=== PATIENT | female | born 1965 | race Caucasian/White ===

== ENCOUNTER → 2020-01-11 11:14 | Outpatient (BNVA) | payer OTHER, SELFPAY | PROVIDERS: PCP Internal Medicine; Visit Provider Physician Assistant Medical | DX: M25.511 Pain in right shoulder (principal) | CPT/HCPCS: 73030; 99202 ==

== ENCOUNTER → 2020-01-18 09:26 | Outpatient (BNVA) | payer OTHER, SELFPAY | PROVIDERS: PCP Internal Medicine; Visit Provider Physician Assistant | DX: Z13.89 Encounter for screening for other disorder (principal) | CPT/HCPCS: 99213 ==

== ENCOUNTER → 2020-01-25 15:03 | Outpatient (BNVA) | payer OTHER, SELFPAY | PROVIDERS: PCP Internal Medicine; Visit Provider Internal Medicine | DX: M54.2 Cervicalgia (principal) | CPT/HCPCS: 99213 ==

== ENCOUNTER → 2020-02-08 13:09 | Outpatient (BNVA) | payer OTHER, SELFPAY | PROVIDERS: Visit Provider Orthopaedic Surgery | DX: S46.001A Unspecified injury of muscle(s) and tendon(s) of the rotator cuff of right shoulder, initial encounter (principal) | CPT/HCPCS: 99202 ==

== ENCOUNTER → 2020-02-14 11:00 | Outpatient (BNVA) | payer OTHER, SELFPAY | PROVIDERS: Visit Provider Internal Medicine | DX: Z13.89 Encounter for screening for other disorder (principal) | CPT/HCPCS: 99213 ==

== ENCOUNTER → 2020-03-08 13:58 | Outpatient (BNVA) | payer OTHER, SELFPAY | PROVIDERS: Visit Provider Internal Medicine | DX: M79.601 Pain in right arm (principal) | CPT/HCPCS: 99213 ==

== ENCOUNTER 2020-03-13 11:50 | Outpatient (REF) | payer OTHER, SELFPAY ==
[2020-03-13 12:19] LABS: COVID-19 Test Negative (Negative)
== END 2020-03-13 11:51 | disposition home or self-care (01) ==
LOC: HO.EMPCOV 11:50
PROVIDERS: Visit Provider Internal Medicine
DX: Z20.822 Contact with and (suspected) exposure to COVID-19 (principal)
CPT/HCPCS: 36415; 87635; C9803

== ENCOUNTER → 2020-03-14 08:43 | Outpatient (BNVA) | payer OTHER, BC, SELFPAY | PROVIDERS: Visit Provider Orthopaedic Surgery | DX: S46.001D Unspecified injury of muscle(s) and tendon(s) of the rotator cuff of right shoulder, subsequent encounter (principal) | CPT/HCPCS: 20610; 99212; J1040 ==

== ENCOUNTER 2020-03-23 11:00 | Outpatient (RCR) | payer OTHER, BC, SELFPAY ==
--- NOTE | 2020-01-24 16:45 | MHC.PT.EP ---
[facility] [place] [facility] [place] Office [place] Office [address] [phone] F: [phone] F: [phone] F: [phone] F: [phone] Physical Therapy Plan of Care Date of Evaluation: 01/24/20 Date of Surgery: NA Diagnosis: PECTORALIS STRAIN Assessment: PILO PRESENTS WITH S/S CONSISTENT WITH PECTORALIS MAJOR STRAIN AND SUPRASPINATUS IMPINGEMENT. IMPAIRMENTS INCLUDE DECREASED ROM. DECREASED STRENGTH, INCREASED TISSUE TENSION AND PAIN, ALTERED POSTURE AND POSITIONING. FUNCTIONAL LIMITATIONS INCLUDE DECREASED TOLERANCE TO LIFTING, PUSHING AND PULLING AND REACHING. SHE REPORTS DECREASED TOLERANCE TO HOMEMAKING AND WORK TASKS, DISRUPTED SLEEP AND DECREASED PARTICIPATION IN RECREATIONAL ACTIVITIES. SHE IS A GOOD CANDIDATE FOR SKILLED PT TO ADDRESS IMPAIRMENTS AND RETURN TO PLOF. Frequency and Duration: The patient will be seen 2 X WEEK FOR 5 WEEKS Short Term Goals: INITIATE HEP AND EDUC IN SELF MANAGEMENT OF SYMPTOMS IN 2 WEEKS Utility Hand Goals: FULL, PAIN FREE GH ROM IN 5 WEEKS FULL, PAIN FREE STRENGTH OF TRUNK AND UE MUSCULATURE IN 5 WEEKS TO RETURN TO WORK FT/FD WITHOUT PAIN GREATER THAN 2/10 IN 5 WEEKS Treatment Plan: Modalities to reduce pain, spasms and effusion. Manual therapy to restore motion and function. Therapeutic exercise to improve strength and flexibility. Neuromuscular re-education for posture and balance. Therapeutic activities to return to functional activities of daily living. Please sign and return to therapist. Thank you for your referral.
--- NOTE | 2020-08-28 08:32 | MHC.PT.DC ---
[facility] [place] Office [place] Office [place] Office [address] Pick[address] [phone] F: [phone] F: [phone] F: [phone] F: [phone] Physical Therapy Discharge Report Diagnosis: PECTORALIS STRAIN Date of Surgery: NA Date of Evaluation: 01/24/20 Date of Discharge: Treatments to Date: 16 Cancellations to Date: 0 No Shows to Date: 0 Discharge Status: Discharge Summary: Rose Marie had been progressing in PT but was placed on hold to undergo MRI and MD follow up. She has not contacted us to continue therapy and is DCed at this time. Electronically signed by: MARTIN MAGANA PT, DPT Please sign and return to therapist. Thank you for your referral.
== END 2020-08-28 08:32 | disposition other institution (70) ==
LOC: HO.PT 11:00
PROVIDERS: PCP Internal Medicine; Visit Provider Internal Medicine
DX: S29.011D Strain of muscle and tendon of front wall of thorax, subsequent encounter (principal)
CPT/HCPCS: 97033; 97110; 97140; 97161; 97530; 97535

== ENCOUNTER 2020-03-29 16:36 | Emergency (ER) | payer BC, SELFPAY ==
--- NOTE | 2020-03-29 16:56 | PC.NURSE ---
This RN to assess pt in WR. Pt states sx resolved at this time. H/O of same issues with ocular migraine and sx resolved after taking meclizine and ibuprofen today. Pt with intact neuros, clear speech. Spoke to PCP who prefers pt to come to ED for evaluation.
[2020-03-29 17:47] VITALS: BP 127/64; PULSE 73; RESP 16; TEMP 36.6; O2SAT 99
--- NOTE | 2020-03-29 18:10 | ED.HA ---
HPI - Headache General Chief Complaint: Eye Problems Stated Complaint: blurry vision Time Seen by Provider: 03/29/20 18:10 Source: patient Mode of arrival: ambulatory Limitations: no limitations History of Present Illness HPI Narrative: patient was driving in when she had aura with visual changes. patient feels off, never developed a true headache. Patient has a history of migraine in the past. She gets visual migraines a couple times of the month. patient states that she could not focus and had triple vision MD elicited complaint: headache Onset (ago): hour(s) Onset description: gradually Severity: moderate Exacerbating factors: movement of head/neck Associated symptoms: nausea and lightheadedness Related Data Home Medications Medication Instructions Recorded Confirmed cyclobenzaprine 5 mg tablet 5 mg PO BEDTIME 02/08/20 levothyroxine 137 mcg tablet 137 mcg PO DAILY 02/08/20 loratadine 5 mg chewable tablet 5 mg PO BID 02/08/20 meclizine 12.5 mg tablet 12.5 mg PO DAILY 02/08/20 morphine 15 mg immediate release 15 mg PO BID PRN 02/08/20 tablet pantoprazole 40 mg tablet,delayed 40 mg PO DAILY 02/08/20 release sertraline 100 mg tablet 100 mg PO DAILY 02/08/20 trazodone 50 mg tablet 50 mg PO BEDTIME PRN 02/08/20 valacyclovir 1 gram tablet 1,000 mg PO DAILY 02/08/20 Allergies Allergy/AdvReac Type Severity Reaction Status Date / Time oxycodone [From PERCOCET] Allergy Intermediate HIVES Verified 02/08/20 13:15 Sulfa (Sulfonamide Allergy Intermediate HIVES Verified 02/08/20 13:15 Antibiotics) [SULFA (SULFONAMIDE ANTIBIOTICS)] diatrizoate meglumine Allergy Unknown red rash Verified 02/08/20 13:15 [Gastrografin] Review of Systems Constitutional: Constitutional: Reports no additional constitutional complaints Eyes: Eyes: Reports no additional eye complaints ENT: Denies dizziness Cardiovascular: Cardiovascular: Reports no additional cardiovascular complaints Respiratory: Respiratory: Reports as per HPI Gastrointestinal: Gastrointestinal: Reports no additional gastrointestinal complaints Genitourinary: Genitourinary: Reports no additional female genitourinary complaints Musculoskeletal: Musculoskeletal: Reports no additional musculoskeletal complaints Integumentary/Breasts: Skin/Breast: Denies rash Neurologic: Reports system reviewed and no additional complaints, except as documented, Denies dizziness and Denies Sensory deficit (Neuro) Psychiatric: Psychiatric: Denies anxiety [facility] Past Medical History Medical History Herpes Hodgkins lymphoma Shingles Surgical History Delivery by section Gastric banding status H/O ankle fusion History of cholecystectomy Family History Family History (Updated 02/08/20 @ 13:21 by Vivien Molina [facility]) Mother Colon cancer Father Hypertension Prostate cancer Son Diabetes Daughter Autism Social History Social History Advance Directives: No Advance Directives Information Provided: Yes 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: employed 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 Vital Signs: Vital Signs: Last Vital Signs Temp 98.1 F 03/29/20 18:22 Pulse 83 03/29/20 18:22 Resp 17 03/29/20 18:22 BP 176/74 H 03/29/20 18:22 Pulse Ox 100 03/29/20 18:22 Body Mass Index 39.3 Const: General: healthy appearing Nutritional Appearance: average body habitus Orientation/consciousness: oriented to person and patient oriented x3 Limitations: no limitations HENMT: Head: Yes normal to inspection Ears: external ears normal General nose exam: Normal external nose present Mouth: Normal oral and palatal mucosa present and oropharynx normal Throat: Yes posterior oropharynx normal Eyes: General: appearance normal, both eyes and all related structures Neck: Other: supple Neck: Yes normal visual inspection Chest: Chest palpation & inspection: normal inspection of the chest Resp: Auscultation: clear to auscultation bilaterally Cardio: Jugular venous distension: no JVD Rate: regular rate Rhythm: regular rhythm Heart sounds: S1 normal heart sound present and S2 normal heart sound present GI: Inspection: Yes normal to inspection Palpation (GI): Soft to palpation, nontender and No hepatosplenomegaly present Auscultation: normal bowel sounds : General: Yes no CVA tenderness Back/Spine/Pelvis: Back: no CVA tenderness Skin: General skin exam: no rashes or lesions noted Neuro: General: oriented to person and patient oriented x3 Cranial nerves: Yes CN's II-XII intact bilaterally Motor exam (neuro): 5/5 motor strength present throughout Sensory Exam: No Sensory deficit (Neuro) Extrem: General: Yes normal to inspection Psych: Appearance: grossly normal Course Course Course Narrative: migraine improved head CT negative will dc home MDM - Headache Differential Diagnosis Differential diagnosis: Likely migraine, tension headache and headache Discharge Plan Discharge Clinical Impression: Migraine Qualifiers: Migraine type: with aura Status migrainosus presence: without status migrainosus Intractability: not intractable Qualified Code(s): G43.109 - Migraine with aura, not intractable, without status migrainosus Patient Disposition: Home, Self-Care Instructions: Migraine Headache (ED) Referrals: Huong Johnson MD [Primary Care Provider] - 2 days
[2020-03-29 18:22] VITALS: BP 176/74; PULSE 83; RESP 17; TEMP 36.7; O2SAT 100; BMI 39.3
--- NOTE | 2020-03-29 18:25 | CT_ITS ---
EXAMINATION: CT HEAD WITHOUT CONTRAST CLINICAL INFORMATION: Headache, double vision COMPARISON: None TECHNIQUE: Contiguous axial imaging was performed from the skull base to vertex without intravenous administration of contrast. This CT examination was performed using dose optimization techniques as appropriate, variously including the following: *Automated exposure control *Adjustment of mA and/or kV according to patient size (this includes techniques or standardized protocols for targeted exams where dose is matched to indication/reason for exam; i.e. extremities or head) *Use of iterative reconstruction technique DLP: 635 mGy-cm FINDINGS: There is no evidence of acute intracranial hemorrhage or territorial infarction. No abnormal mass effect or midline shift is seen. Hitchcock to white matter differentiation is well preserved. No extra-axial fluid collections are identified. The ventricles are normal in size. There is no abnormal attenuation within the brain parenchyma. The osseous structures and soft tissues are normal. The mastoid air cells and visualized portions of the paranasal sinuses are well aerated. Some dystrophic calcification anterior right frontal region. A calcified meningioma cannot be excluded CT/CT head/brain wo con IMPRESSION: No acute intracranial pathology.
== END 2020-03-29 19:25 | disposition home or self-care (01) ==
PROVIDERS: Emergency Provider Emergency Medicine; PCP Internal Medicine
DX: G43.109 Migraine with aura, not intractable, without status migrainosus (principal); Z79.899 Other long term (current) drug therapy
CPT/HCPCS: 70450; 99283; 99284

== ENCOUNTER → 2020-04-05 12:55 | Outpatient (BNVA) | payer OTHER, SELFPAY | PROVIDERS: PCP Internal Medicine; Visit Provider Internal Medicine | DX: M79.621 Pain in right upper arm (principal) | CPT/HCPCS: 99213 ==

== ENCOUNTER 2020-04-13 16:30 | Outpatient (REF) | payer OTHER, SELFPAY ==
--- NOTE | ~2020-04-13 | MR_ITS ---
EXAMINATION: MR SHOULDER WITHOUT CONTRAST, RIGHT CLINICAL INFORMATION: Right shoulder pain over biceps. COMPARISON: Radiograph dated 01/11/2020. TECHNIQUE: MRI of the shoulder without contrast was performed on a high-field scanner. FINDINGS: ROTATOR CUFF: Intact. No muscle atrophy or fatty infiltration. BICEPS: Normal. CORACOACROMIAL ARCH: The undersurface of the acromion is minimally curved with no subacromial spur. There is mild acromioclavicular osteoarthritis with mild distal clavicular osteolysis . No subacromial-subdeltoid bursitis. LABRUM/CAPSULE: There is focal abnormal increased signal intensity at the superior labrum which extends into the labral tissue (/18 of series 6) and to the articular cortex at the supraglenoid tubercle. Underlying subchondral cystic changes noted in this region. This is likely due to a small focal labral tear with surrounding fraying. Labrum otherwise appears intact. Joint capsule is normal. GLENOHUMERAL JOINT/MARROW: There is subtle cortical irregularity and subcortical cystic change along the posterior humeral head. No fracture or malalignment. As noted above, a small focus of subcortical cystic change is present at the supraglenoid tubercle. A trace amount of joint fluid in the the superior subscapularis recess is within normal limits. No loose bodies are identified. MR/MR shoulder RT wo con IMPRESSION: 1. Abnormal signal at the undersurface of the superior labrum with adjacent chondral fissuring and subcortical cystic change at the supraglenoid tubercle, most consistent with a type I SLAP injury. A very small type II SLAP tear is less likely. 2. Otherwise normal biceps tendon. 3. 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
== END 2020-04-13 16:31 | disposition home or self-care (01) ==
LOC: HO.MRI 16:30
PROVIDERS: Visit Provider Internal Medicine
DX: M25.511 Pain in right shoulder (principal)
CPT/HCPCS: 73221

== ENCOUNTER 2020-04-17 13:22 | Outpatient (REF) | payer BC, SELFPAY ==
--- NOTE | ~2020-04-17 | MM_ITS ---
EXAMINATION: MM SCREENING DIGITAL BREAST TOMOSYNTHESIS, BILATERAL CLINICAL INFORMATION: Screening. Asymptomatic. The lifetime risk of breast cancer based on the Tyrer-Cuzick Model is 13%. COMPARISON: Mammography: 12/22/2018, 12/09/2017, 11/14/2016, outside exam 05/01/2015 ([facility]). TECHNIQUE: Digital breast tomosynthesis is performed in both the craniocaudal and mediolateral oblique views along with computer-aided detection (CAD). Synthesized 2D images are generated from the tomosynthesis. Additional right MLO view is provided. FINDINGS: There are scattered areas of fibroglandular density (ACR BI-RADS breast composition Category b). The left breast is unremarkable. There is no mass or architectural abnormality. Neither breast shows abnormal calcifications. The bilateral axilla and skin contours are unremarkable. The right breast has a 0.6 x 0.5 mm nodule anterior upper outer quadrant within 4 cm from the nipple. Finding is more conspicuous when compared with prior studies. Margins are incompletely visualized. Patient will be recalled for additional imaging. MM/MM tomosynthesis screening BI IMPRESSION: 1. Right: Small nodule anterior upper outer quadrant with incompletely visualized margins, more conspicuous when compared with prior studies. 2. Left: No mammographic evidence of malignancy. ASSESSMENT: BI-RADS 0: Incomplete - Need Additional Imaging Evaluation RECOMMENDATION: 1. Additional views of the right breast for margins (3D spot CC, 3D spot ML). 2. Targeted ultrasound right breast. 3. Radiology department staff will contact the patient for additional imaging. This patient's information was entered into a reminder system with a target due date for their next mammogram.
== END 2020-04-17 13:23 | disposition home or self-care (01) ==
LOC: HO.MAMMO 13:22
PROVIDERS: Visit Provider Internal Medicine
DX: Z12.31 Encounter for screening mammogram for malignant neoplasm of breast (principal)
CPT/HCPCS: 77063; 77067

== ENCOUNTER 2020-04-19 11:34 | Outpatient (REF) | payer BC, SELFPAY ==
--- NOTE | ~2020-04-19 | MM_ITS ---
EXAMINATION: MM DIAGNOSTIC DIGITAL BREAST TOMOSYNTHESIS, RIGHT US BREAST, RIGHT CLINICAL INFORMATION: Nodule upper outer quadrant approximately 4 cm from nipple. COMPARISON: Mammography: Same day as well as studies dating back to 05/01/2013 TECHNIQUE: Digital breast tomosynthesis is performed. 2-D images are generated from the tomosynthesis. The following views are obtained: Spot compression craniocaudal and 90 degree mediolateral views. Targeted right breast ultrasound. FINDINGS: There are scattered areas of fibroglandular density (ACR BI-RADS breast composition Category b). There is persistence of a circumscribed approximately 6 mm density lying approximately 4 cm from nipple, at the 12 o'clock position. No associated microcalcifications are identified. No definite spiculation is seen. Targeted ultrasound evaluation of the right breast superiorly demonstrated a complex cystic structure measuring approximately 5 x 5 x 3 mm in size at the 12 o'clock position approximately 4 cm from nipple. No internal vascularity is present. The lesion is wider than it is tall. There is increased through sound transmission. Results are discussed with the patient at time of visit. MM/MM tomosynthesis added views R IMPRESSION: Density about the superior aspect of the right breast corresponds to a complex cyst on ultrasound. Six-month followup ultrasound study suggested. ASSESSMENT: BI-RADS 3: Probably Benign. RECOMMENDATION: Diagnostic ultrasound in 6 months. This patient's information was entered into a reminder system with a target due date for their next mammogram.
== END 2020-04-19 11:35 | disposition home or self-care (01) ==
LOC: HO.MAMMO 11:34
PROVIDERS: Visit Provider Obstetrics & Gynecology Gynecology
DX: R92.2 Inconclusive mammogram (principal)
CPT/HCPCS: 76642; 77061; 77065

== ENCOUNTER → 2020-04-25 09:36 | Outpatient (BNVA) | payer BC, SELFPAY | PROVIDERS: Visit Provider Orthopaedic Surgery | DX: S43.499A Other sprain of unspecified shoulder joint, initial encounter (principal); S46.819A Strain of other muscles, fascia and tendons at shoulder and upper arm level, unspecified arm, initial encounter | CPT/HCPCS: 20610; J1040 ==

== ENCOUNTER → 2020-04-26 13:12 | Outpatient (BNVA) | payer OTHER, SELFPAY | PROVIDERS: Visit Provider Internal Medicine | DX: M79.621 Pain in right upper arm (principal) | CPT/HCPCS: 99213 ==

== ENCOUNTER → 2020-05-10 11:31 | Outpatient (BNVA) | payer OTHER, SELFPAY | PROVIDERS: Visit Provider Internal Medicine | DX: Z13.89 Encounter for screening for other disorder (principal) | CPT/HCPCS: 99213 ==

== ENCOUNTER → 2020-06-14 11:34 | Outpatient (BNVA) | payer OTHER, SELFPAY | PROVIDERS: Visit Provider Internal Medicine | DX: Z13.89 Encounter for screening for other disorder (principal) | CPT/HCPCS: 99213 ==

== ENCOUNTER → 2020-07-16 12:48 | Outpatient (BNVA) | payer OTHER, SELFPAY | PROVIDERS: Visit Provider Internal Medicine | DX: Z13.89 Encounter for screening for other disorder (principal) | CPT/HCPCS: 99213 ==

== ENCOUNTER → 2020-08-17 11:22 | Outpatient (BNVA) | payer OTHER, SELFPAY | PROVIDERS: Visit Provider Internal Medicine | DX: Z13.89 Encounter for screening for other disorder (principal) | CPT/HCPCS: 99213 ==

== ENCOUNTER → 2020-09-07 11:31 | Outpatient (BNVA) | payer OTHER, SELFPAY | PROVIDERS: Visit Provider Internal Medicine | DX: Z02.79 Encounter for issue of other medical certificate (principal) | CPT/HCPCS: 99213 ==

== ENCOUNTER 2020-09-19 16:30 | Outpatient (REF) | payer BC, SELFPAY ==
--- NOTE | ~2020-09-19 | XR_ITS ---
EXAMINATION: XR CHEST CLINICAL INFORMATION: Shortness of breath h/o pleural effusion s/p pleurodesis. COMPARISON: 10/25/2018 TECHNIQUE: 2 views of the chest were obtained. FINDINGS: Heart and pulmonary vessels appear normal. Left hemidiaphragm is mildly elevated. Surgical clips noted in left upper quadrant. No infiltrates effusions or lung masses are seen. XR/XR chest 2V IMPRESSION: No acute intrathoracic disease.
== END 2020-09-19 16:31 | disposition home or self-care (01) ==
LOC: HO.XRAY 16:30
PROVIDERS: PCP Internal Medicine; Visit Provider Internal Medicine
DX: R07.9 Chest pain, unspecified (principal); R05 Cough
CPT/HCPCS: 71046

== ENCOUNTER 2020-10-18 12:56 | Outpatient (REF) | payer BC, SELFPAY ==
--- NOTE | ~2020-10-18 | US_ITS ---
EXAMINATION: US DIAGNOSTIC ULTRASOUND BREAST, RIGHT CLINICAL INFORMATION: Six-month follow-up right breast, dated cyst. COMPARISON: April 19, 2020 and December 22, 2018. TECHNIQUE: Ultrasound of the breast is performed with real-time major scale imaging and color Doppler. FINDINGS: At the 12:00 position approximately 4 cm from the nipple of the right breast there is again noted to be a complicated cyst with increased through sound transmission and smooth circumscribed wall. Lesion is wider than it is tall. No internal vascularity is present. It measures approximately 6 x 4 x 5 mm in size. Recommend 6 month follow-up mammography. Results are discussed with the patient at time of visit. US/US breast RT limited IMPRESSION: Essentially stable complicated cyst right breast 12:00 position 4 cm from the nipple. ASSESSMENT: BI-RADS 3: Probably Benign RECOMMENDATION: Diagnostic mammography in 6 months. This patient's information was entered into a reminder system with a target due date for their next mammogram.
== END 2020-10-18 12:57 | disposition home or self-care (01) ==
LOC: HO.MAMMO 12:56
PROVIDERS: Visit Provider Obstetrics & Gynecology Gynecology
DX: N60.01 Solitary cyst of right breast (principal)
CPT/HCPCS: 76642

== ENCOUNTER 2020-11-19 14:25 | Outpatient (REF) | payer BC, SELFPAY ==
[2020-11-19 15:53] LABS: MANUAL DIFF FLAG NO
[2020-11-19 16:01] LABS: Basophils Absolute Auto 0.1 X10*3/uL (0.0-0.2); Basophils Percent Auto 0.5 % (0-2); Eosinophils Absolute Auto 0.3 X10*3/uL (0.0-0.4); Eosinophils Percent Auto 2.6 % (0-4); Hematocrit 39.7 % (37-47); Hemoglobin 13.2 g/dl (12.0-16.0); Imm Gran Abs Auto 0.04 X10*3/uL (0.00-0.03); Imm Gran Pct Auto 0.4 % (0.0-0.4); Lymphocytes Absolute Auto 2.7 X10*3/uL (1.2-4.9); Lymphocytes Percent Auto 24.5 % (20-40); Mean Corpuscular HGB Conc 33.2 g/dl (31.0-35.0); Mean Corpuscular Hemoglobin 31.5 pg (27.0-33.0); Mean Corpuscular Volume 94.7 fL (80-98); Mean Platelet Volume 11.4 fL (9.4-12.3); Monocytes Absolute Auto 1.1 X10*3/uL (0.1-1.2); Neutrophils Absolute Auto 6.9 X10*3/uL (2.0-8.3); Platelet Count 314 X10*3/uL (160-400); Red Blood Count 4.19 X10*6/uL (4.20-5.50); Red Cell Distribution Width 13.9 % (11.0-16.0); White Blood Count 11.2 X10*3/uL (4.8-10.8)
[2020-11-19 16:05] LABS: INTERNATIONAL NORM RATIO 0.9 (0.9-1.1); Prothrombin Time 10.6 SEC (9.9-13.0)
[2020-11-19 16:13] LABS: Alanine Aminotransferase 21 U/L (0-31); Albumin Level 4.3 g/dL (3.5-5.0); Alkaline Phosphatase 205 U/L (39-117); Anion Gap 13 (12-20); Aspartate Amino Transferase 20 U/L (5-31); Bilirubin Total 0.9 mg/dL (0.0-1.0); Blood Urea Nitrogen 14 mg/dL (9-16); C Reactive Protein 0.39 mg/dL (< or = 0.50); Calcium 9.7 mg/dL (8.4-10.2); Carbon Dioxide 27 mmol/L (22-29); Chloride 107 mmol/L (96-108); Estimated Glomerular Filt Rate 57; Glucose Random 106 mg/dL (60-115); Iron 90 mcg/dL (30-160); Percent Iron Saturation 23 % (15-50); Potassium 4.7 mmol/L (3.3-5.1); Sodium 142 mmol/L (135-145); Total Iron Binding Capacity 387 mcg/dL (228-428); Total Protein 6.9 g/dL (6.5-8.0); Unsaturated Iron Binding 297 ug/dL
[2020-11-19 16:45] LABS: Vitamin D 25-OH Total 30.6 ng/mL (>30)
[2020-11-19 16:47] LABS: Ferritin 57 ng/mL (10-250); Folate 5.3 ng/mL (> or = 4.0); Vitamin B12 355 pg/mL (200-900)
[2020-11-19 17:49] LABS: Erythrocyte Sedimentation Rate 10 MM/HR (0-20)
[2020-11-20 09:08] LABS: HBS Num1 9.97 mIU/mL (0-7.99); HBc Num1 0.05 S/CO (0.00-0.79); HBsAGNum1 0.21 S/CO (0.00-0.99); Hepatitis B Core Antibody Nonreactive (Nonreactive); Hepatitis B Surface Antigen Negative (Negative); ~HepC Num1 0.07 S/CO (0.00-0.79); ~Hepatitis C Antibody Nonreactive (Nonreactive)
[2020-11-20 11:29] LABS: HBS Num3 8.21 mIU/mL (0-7.99)
[2020-11-20 11:30] LABS: ~Hepatitis B Surface Antibody GRAYZONE (Nonreactive)
[2020-11-20 11:37] LABS: Alpha 1 Anti-trypsin 141 mg/dL (83-199); Ceruloplasmin 34 mg/dL (18-53)
[2020-11-20 12:22] LABS: Anti Nuclear Antibody Screen NEGATIVE (NEGATIVE)
[2020-11-20 21:26] LABS: Immunoglobulin G Subclass 1 271 mg/dL (382-929); Immunoglobulin G Subclass 2 294 mg/dL (241-700); Immunoglobulin G Subclass 3 47 mg/dL (22-178); Immunoglobulin G Subclass 4 8.5 mg/dL (4-86); Immunoglobulin G Total 697 mg/dL (600-1640); Transglutaminase Ab IgG 1 U/mL; Transglutaminase IgA 1 U/mL
[2020-11-22 06:21] LABS: Zinc 67 mcg/dL (60-130)
[2020-11-23 08:10] LABS: Hepatitis A Antibody IgM 0.19 Index (0-0.79); ~Hepatitis A Antibody IgM Nonreactive (Nonreactive)
[2020-11-23 22:16] LABS: Histamine Plasma <1.5 ng/mL (< OR = 1.8)
[2020-11-25 16:16] LABS: Smooth Muscle Antibody <20 U (<20)
[2020-11-27 10:31] LABS: Soluble Liver Ag Autoantibody <20.1 U (0.0-20.0)
== END 2020-11-19 14:26 | disposition home or self-care (01) ==
LOC: HO.LAB 14:25
PROVIDERS: PCP Internal Medicine; Visit Provider Internal Medicine Gastroenterology
DX: R94.5 Abnormal results of liver function studies (principal); K52.839 Microscopic colitis, unspecified; G89.29 Other chronic pain; R10.33 Periumbilical pain; R79.82 Elevated C-reactive protein (CRP); K75.81 Nonalcoholic steatohepatitis (NASH)
CPT/HCPCS: 36415; 80053; 82085; 82103; 82306; 82390; 82550; 82607; 82728; 82746; 82784; 83088; 83516; 83520; 83540; 84630; 85025; 85610; 85652; 86038; 86039; 86140; 86255; 86256; 86704; 86706; 86709; 86803; 87340

== ENCOUNTER 2020-11-27 11:53 | Outpatient (REF) | payer BC, SELFPAY ==
[2020-12-04 11:51] LABS: Parietal Cell Antibody <=20.0 Unit (<=20.0)
[2020-12-06 15:37] LABS: Intrinsic Factor Antibodies Negative (Negative)
== END 2020-11-27 11:54 | disposition home or self-care (01) ==
LOC: HO.LAB 11:53
PROVIDERS: PCP Internal Medicine; Visit Provider Internal Medicine Gastroenterology
DX: E53.8 Deficiency of other specified B group vitamins (principal); R94.5 Abnormal results of liver function studies
CPT/HCPCS: 36415; 83516; 83520; 86340

== ENCOUNTER 2021-01-14 14:28 | Outpatient (REF) | payer BC, SELFPAY ==
[2021-01-14 15:31] LABS: Alanine Aminotransferase 25 U/L (0-31); Albumin Level 4.3 g/dL (3.5-5.0); Alkaline Phosphatase 175 U/L (39-117); Anion Gap 13 (12-20); Aspartate Amino Transferase 30 U/L (5-31); Bilirubin Total 0.8 mg/dL (0.0-1.0); Blood Urea Nitrogen 11 mg/dL (9-16); Calcium 9.6 mg/dL (8.4-10.2); Carbon Dioxide 23 mmol/L (22-29); Chloride 109 mmol/L (96-108); Estimated Glomerular Filt Rate > 60; Glucose Random 120 mg/dL (60-115); Potassium 4.3 mmol/L (3.3-5.1); Sodium 141 mmol/L (135-145); Total Protein 6.8 g/dL (6.5-8.0)
[2021-01-14 19:19] LABS: Gamma Glutamyl Transpeptidase 206 U/L (7-33)
[2021-01-18 12:36] LABS: Alk.Phos Iso. Macrohepatic 20 % (<=0); Alk.Phos Isoenzymes Bone 23 % (28-66); Alk.Phos Isoenzymes Intest 0 % (1-24); Alk.Phos Isoenzymes Liver 57 % (25-69); Alk.Phos Isoenzymes Placental 0 % (<=0); Alk.Phos Isoenzymes Total 165 U/L (37-153)
== END 2021-01-14 14:29 | disposition home or self-care (01) ==
LOC: HO.LAB 14:28
PROVIDERS: PCP Internal Medicine; Visit Provider Internal Medicine Gastroenterology
DX: R94.5 Abnormal results of liver function studies (principal)
CPT/HCPCS: 36415; 80053; 82977; 84080

== ENCOUNTER → 2021-03-25 11:23 | Outpatient (BNVA) | payer BC, SELFPAY | PROVIDERS: PCP Internal Medicine; Visit Provider Internal Medicine Gastroenterology ==

== ENCOUNTER 2021-04-23 09:52 | Outpatient (REF) | payer OTHER, SELFPAY ==
--- NOTE | ~2021-04-23 | MM_ITS ---
EXAMINATION: MM DIAGNOSTIC DIGITAL BREAST TOMOSYNTHESIS, BILATERAL US DIAGNOSTIC ULTRASOUND BREAST, LEFT CLINICAL INFORMATION: Due for yearly. Also follow-up mildly complicated cyst anterior 11:00-12:00 right breast. The lifetime risk of breast cancer based on the Tyrer-Cuzick Model is 13%. COMPARISON: Mammography: 04/19/2020, 04/17/2020 (BI-RADS 0), 12/22/2018, 12/09/2017, 11/14/2016; targeted right breast ultrasound 04/19/2020, 10/18/2020. TECHNIQUE: Digital breast tomosynthesis is performed in both the craniocaudal and mediolateral oblique views along with computer-aided detection (CAD). Synthesized 2D images are generated from the tomosynthesis. Additional spot left ML view is obtained. Ultrasound left breast is targeted to the upper outer quadrant mid depth. Grayscale imaging and color Doppler are performed without and with harmonics. FINDINGS: There are scattered areas of fibroglandular density (ACR BI-RADS breast composition Category b). The small complicated cyst anterior right breast for follow-up is resolved. The right breast shows no interval mass or architectural abnormality. Neither breast shows abnormal calcifications. The bilateral axilla and skin contours are unremarkable. Left breast has new 0.6 cm oval nodule mid upper breast with smaller adjacent satellite nodule, suspected fibrocystic change. The remainder the left breast is unremarkable. Ultrasound targeted to the left upper outer breast confirms incidental cyst 0.5 cm, 1:00 position mid depth corresponding to finding on mammography. Cyst is anechoic with circumscribed margins and increased through-transmission of sound. There is a tiny adjacent satellite cyst in the area measuring 0.3 cm corresponding to the mammogram. There is no color flow. No solid mass or architectural abnormality. Results are discussed with the patient at time of visit. MM/MM tomosynthesis diagnostic BI IMPRESSION: Right: -No mammographic evidence of malignancy. -Resolution small cyst anterior upper right breast since prior exam. Left: -No mammographic evidence of malignancy. -2 small incidental cysts upper left breast. ASSESSMENT: BI-RADS 2: Benign RECOMMENDATION: Routine annual mammography screening. This patient's information was entered into a reminder system with a target due date for their next mammogram.
== END 2021-04-23 09:53 | disposition home or self-care (01) ==
LOC: HO.MAMMO 09:52
PROVIDERS: PCP Obstetrics & Gynecology Gynecology; Visit Provider Obstetrics & Gynecology Gynecology
DX: N63.25 Unspecified lump in the left breast, overlapping quadrants (principal)
CPT/HCPCS: 76642; 77062; 77066

== ENCOUNTER 2021-07-30 07:55 | Day surgery (SDC) | payer OTHER, SELFPAY ==
[2021-07-25 08:32] VITALS: BMI 40.6
--- NOTE | 2021-07-29 10:53 | P.CONAN_ITS ---
Documented by User: Kayla Amaya NP 07/29/21 10:53 HPI - Anesthesia Eval Consult details Narrative: 55yo F for Colonoscopy PMFSH Active Problems Active Problems: All Active Problems (Updated 07/25/21 @ 08:29 by Ceci Rivera RN) Sprain and strain of other specified sites of shoulder and upper arm (Acute) Injury of right rotator cuff (Acute) Abnormal LFTs (Acute) Low vitamin B12 level (Acute) Past Medical History Medical History (Updated 07/30/21 @ 08:58 by Maria G Farfan RN) Anxiety and depression Asthma GERD (gastroesophageal reflux disease) Hepatic steatosis Herpes Hodgkins lymphoma Hx of irritable bowel syndrome Hypothyroid Shingles Family History Family History Mother Colon cancer Father Hypertension Prostate cancer Son Diabetes Daughter Autism Surgical History Surgical History Delivery by section Gastric banding status H/O ankle fusion History of cholecystectomy History of esophagogastroduodenoscopy (EGD) History of sleeve gastrectomy Hx of colonoscopy Social History Social History Patient Tobacco Use Status: Never used Tobacco Use of substances other than those prescribed or required for medical reasons: Yes Substance Use Frequency: Occasionally Are you DNR?: No Advance Directives: No Advance Directives Information Provided: Yes 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 Allergies Allergy/AdvReac Type Severity Reaction Status Date / Time oxycodone [From PERCOCET] Allergy Intermediate HIVES Verified 07/30/21 08:30 Sulfa (Sulfonamide Allergy Intermediate HIVES Verified 07/30/21 08:30 Antibiotics) [SULFA (SULFONAMIDE ANTIBIOTICS)] diatrizoate meglumine Allergy Unknown red rash Verified 07/30/21 08:30 [Gastrografin] Home Medications Medication Instructions Recorded Confirmed Last Taken Type cyclobenzaprine 5 mg tablet 5 mg PO BEDTIME 02/08/20 07/30/21 Unknown History loratadine 5 mg chewable tablet 5 mg PO BID 02/08/20 07/30/21 Unknown History (Children's Claritin) meclizine 12.5 mg tablet 12.5 mg PO DAILY 02/08/20 07/30/21 Unknown History morphine 15 mg immediate release 15 mg PO BID PRN 02/08/20 07/30/21 Unknown History tablet pantoprazole 40 mg tablet,delayed 40 mg PO DAILY 02/08/20 07/30/21 Unknown History release sertraline 100 mg tablet 100 mg PO DAILY 02/08/20 07/30/21 Unknown History trazodone 50 mg tablet 50 mg PO BEDTIME PRN 02/08/20 07/30/21 Unknown History levothyroxine 137 mcg tablet 137 mcg PO DAILY 07/30/21 07/30/21 Unknown History (Synthroid) Exam Exam Date and Time: July 29, 2021 1053 Height,Weight and Vital Signs: Height 5 ft 2 in Weight 100.698 kg Assessment and Plan Assessment Anesthesia Assessment: Chart Reviewed Documented by User: Oneil Carrillo MD 07/30/21 09:29 [facility] Past Medical History Medical History (Updated 07/30/21 @ 08:58 by Maria G Farfan RN) Anxiety and depression Asthma GERD (gastroesophageal reflux disease) Hepatic steatosis Herpes Hodgkins lymphoma Hx of irritable bowel syndrome Hypothyroid Shingles Family History Family History Mother Colon cancer Father Hypertension Prostate cancer Son Diabetes Daughter Autism Family history of problems with anesthesia: No Surgical History Surgical History Delivery by section Gastric banding status H/O ankle fusion History of cholecystectomy History of esophagogastroduodenoscopy (EGD) History of sleeve gastrectomy Hx of colonoscopy History of Problems with Anesthesia: No Social History Social History Patient Tobacco Use Status: Never used Tobacco Use of substances other than those prescribed or required for medical reasons: Yes Substance Use Frequency: Occasionally Are you DNR?: No Advance Directives: No Advance Directives Information Provided: Yes 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 Allergies Allergy/AdvReac Type Severity Reaction Status Date / Time oxycodone [From PERCOCET] Allergy Intermediate HIVES Verified 07/30/21 08:30 Sulfa (Sulfonamide Allergy Intermediate HIVES Verified 07/30/21 08:30 Antibiotics) [SULFA (SULFONAMIDE ANTIBIOTICS)] diatrizoate meglumine Allergy Unknown red rash Verified 07/30/21 08:30 [Gastrografin] Home Medications Medication Instructions Recorded Confirmed Last Taken Type cyclobenzaprine 5 mg tablet 5 mg PO BEDTIME 02/08/20 07/30/21 Unknown History loratadine 5 mg chewable tablet 5 mg PO BID 02/08/20 07/30/21 Unknown History (Children's Claritin) meclizine 12.5 mg tablet 12.5 mg PO DAILY 02/08/20 07/30/21 Unknown History morphine 15 mg immediate release 15 mg PO BID PRN 02/08/20 07/30/21 Unknown History tablet pantoprazole 40 mg tablet,delayed 40 mg PO DAILY 02/08/20 07/30/21 Unknown History release sertraline 100 mg tablet 100 mg PO DAILY 02/08/20 07/30/21 Unknown History trazodone 50 mg tablet 50 mg PO BEDTIME PRN 02/08/20 07/30/21 Unknown History levothyroxine 137 mcg tablet 137 mcg PO DAILY 07/30/21 07/30/21 Unknown History (Synthroid) Exam Airway Mallampati Class: I TM Dist: >3cm Neck ROM: Full Loose/Missing/Broken Teeth: Yes Assessment and Plan Assessment Anesthesia Assessment: Anesthesia Plan Discussed Final Anesthetic Review Family History of Problems with Anesthesia: No History of Problems with Anesthesia: No NPO: Yes ASA Class: III Final Preanesthetic Review: No Changes in Pt Med Stat, Meds/Allgs Chart Reviewed, Consent Obtained/Reviewed and Anes Risks/Benef Reviewed Patient Risk: Intermediate Procedure Risk: Low Anesthetic Plan Anesthetic Plan: MAC: Disposition: Standard PACU
[2021-07-30 08:42] VITALS: BP 160/66; PULSE 69; RESP 16; TEMP 36.2; O2SAT 99
[2021-07-30] MEDS: Lactated Ringers 1,000 ML 100 ML IVCONT (08:55)
--- NOTE | 2021-07-30 09:07 | MHC.SHP ---
Pre-Procedural Eval Section A Date of Service: 07/30/21 Section B Chief Complaint: Screening, Details of Present Illness: mother with colon cancer Relevant Family History (Specify if Yes): Yes Relevant Social History: None Present Medications: see Short Stay Collaborative assessment Medical History: Significant History (Anxiety and depression GERD (gastroesophageal reflux disease) Hepatic steatosis Herpes Hodgkins lymphoma Hypothyroid Shingles) History of Previous Operations: Relevant previous surgery/procedure and date(s) (Delivery by section Gastric banding status H/O ankle fusion History of cholecystectomy History of esophagogastroduodenoscopy (EGD) History of sleeve gastrectomy Hx of colonoscopy) Allergies: Allergies Allergy/AdvReac Type Severity Reaction Status Date / Time oxycodone [From PERCOCET] Allergy Intermediate HIVES Verified 07/30/21 08:30 Sulfa (Sulfonamide Allergy Intermediate HIVES Verified 07/30/21 08:30 Antibiotics) [SULFA (SULFONAMIDE ANTIBIOTICS)] diatrizoate meglumine Allergy Unknown red rash Verified 07/30/21 08:30 [Gastrografin] Review of Systems Sugical H&P ROS: Negative: Constitution, Cardiovascular, Respiratory, Neurological, Psychiatric, Hem-Onc, Allergic/Immunologic, Gastrointestinal, Genitourinary, Musculoskeletal, Integumentary, Endocrine and Eyes/Ears/Nose/Throat Exam Surgical H&P Exam: Normal: HEENT, Normal: Heart, Normal: Lungs, Normal: Extremities, Normal: Abdomen, Normal: Skin and Normal: Neurological Plan Diagnosis/Plan: Unchanged I have reviewed the history and physical and performed a pertinent physical examination on my patient. No changes have occurred unless specified.
--- NOTE | 2021-07-30 09:11 | P.OP_ITS ---
Operative Note Operative Note Date of Service: 07/30/21 Narrative: Operative Information Procedure Description: Colonoscopy Indication: Fh of CRC and personal hx of polyps Anesthesia: MAC COLONOSCOPY Instrument: Olympus variable stiffness pediatric scope 190L Colonoscopy Monitoring: Vital signs and clinical assessment, continuous EKG monitoring, Pulse oximetry, Carbon Dioxide monitoring and blood pressure monitoring were done throughout the procedure. Colon withdrawal time was 19 minutes. Procedure: The patient was placed in the left lateral decubitis position and pre-procedure medications were administered. After a digital rectal examination of the ano-rectum, the video colonoscope was inserted into the rectum and advanced through the colon to the cecum/TI. The colonoscope was slowly withdrawn in a retrograde panoramic fashion and the colon mucosa was carefully examined including a retroflexed view of the rectum. Findings and interventions are described below. Procedure Difficulty: easy Findings: Terminal Ileum- mild erythema, bx taken Right sided retroflexion--nml Cecum:normal, bx taken Ascending Colon: normal, bx taken Transverse Colon -normal Descending Colon: 6-7 mm sessile polyp removed with cold forceps Sigmoid Colon: 8-10 mm semi pedunculated polyp like leison with surrounding edema, removed with cold snare Rectum: Retroflexion with small internal hemorrhoids, grade I Anorectum - normal Colon preparation: [place] Bowel Preparation Scale Right colon; 2 Transverse colon: 2 Left colon; 2 (0 = Unprepared colon segment with mucosa not seen due to solid stool that cannot be cleared. 1 = Portion of mucosa of the colon segment seen, but other areas of the colon segment not well seen due to staining, residual stool and/or opaque liquid. 2 = Minor amount of residual staining, small fragments of stool and/or opaque liquid, but mucosa of colon segment seen well. 3 = Entire mucosa of colon segment seen well with no residual staining, small fragments of stool or opaque liquid) Impression and Post Procedure Diagnosis: polyps internal hemorrhoids mild ileitis Plan: High fiber diet leaflet Avoid straining at stool, epsom salts and sitz bath, anusol supps or cream Repeat Colonoscopy in 5 years due to FH of CRC or earlier if clinically indicated if any GI sx then CT or Mr enterogram to r/o crohns, await Bx first Above findings were reviewed with the patient and relevant handouts were provided if indicated.
--- NOTE | 2021-07-30 09:11 | PM.OP ---
Brief Operative Note Date of Service: 07/30/21 Pre-op diagnosis: Fh of CRC and polyps Post-op diagnosis: same Procedure: see op note Surgeon: Robbie Chowdhury MD Anesthesia: MAC Was an Rotary Machine Operator used for this Procedure?: No Estimated blood loss (mL): 0 Condition: stable Disposition: PACU
[2021-07-30 09:59] VITALS: BP 100/45; PULSE 56; RESP 16; TEMP 36.5; O2SAT 96
[2021-07-30 10:14] VITALS: BP 145/72; PULSE 68; RESP 16; TEMP 36.8; O2SAT 100
== END 2021-07-30 11:32 | disposition home or self-care (01) ==
PROVIDERS: PCP Obstetrics & Gynecology Gynecology; Visit Provider Internal Medicine Gastroenterology
PROC: 0DJD8ZZ Inspection of Lower Intestinal Tract, Via Natural or Artificial Opening Endoscopic (ICD-10-PCS; CPT 45378; principal; 2021-07-30 09:20)
DX: Z12.11 Encounter for screening for malignant neoplasm of colon (principal); Z80.0 Family history of malignant neoplasm of digestive organs; Z86.010 Personal history of colon polyps; K59.00 Constipation, unspecified; D12.4 Benign neoplasm of descending colon; K63.5 Polyp of colon; K52.89 Other specified noninfective gastroenteritis and colitis; K64.0 First degree hemorrhoids; K21.9 Gastro-esophageal reflux disease without esophagitis; K76.0 Fatty (change of) liver, not elsewhere classified; C81.90 Hodgkin lymphoma, unspecified, unspecified site; E03.9 Hypothyroidism, unspecified; Z98.84 Bariatric surgery status; Z90.49 Acquired absence of other specified parts of digestive tract; Z79.899 Other long term (current) drug therapy; Z88.2 Allergy status to sulfonamides; Z88.8 Allergy status to other drugs, medicaments and biological substances
CPT/HCPCS: 45385; 45380; 88305

== ENCOUNTER 2021-08-28 19:00 | Outpatient (REF) | payer OTHER, SELFPAY ==
[2021-09-04 21:01] LABS: Lactoferrin, Fecal, Quant. <30.0 mcg/mL
== END 2021-08-28 19:01 | disposition home or self-care (01) ==
LOC: HO.LNP 19:00
PROVIDERS: Visit Provider Internal Medicine Gastroenterology
DX: K52.9 Noninfective gastroenteritis and colitis, unspecified (principal)
CPT/HCPCS: 83631

== ENCOUNTER 2021-09-23 09:40 | Outpatient (REF) | payer OTHER, SELFPAY ==
--- NOTE | ~2021-09-23 | MR_ITS ---
EXAMINATION: MR ABDOMEN AND PELVIS WITHOUT AND WITH CONTRAST CLINICAL INFORMATION: Noninfective gastroenteritis and colitis COMPARISON: CT abdomen pelvis 05/11/2018 TECHNIQUE: MRI of the abdomen and pelvis before and after the IV administration of 10 mL of Gadavist was obtained using routine sequences. FINDINGS: LUNG BASES: Trace bilateral pleural effusions. KIDNEYS: Unremarkable. GALLBLADDER: Surgically absent. LIVER AND BILIARY TREE: The liver is normal in signal and morphology. No suspicious liver lesion. No intra or extrahepatic biliary duct dilatation. PANCREAS: Unremarkable SPLEEN: Unremarkable ADRENAL GLANDS: Unremarkable GASTROINTESTINAL TRACT: Stomach is under distended limiting assessment for wall thickening and hyperenhancement. Susceptibility artifact along the greater curvature of the stomach compatible with history of prior gastric sleeve. Duodenal diverticulum. Single loop of featureless small bowel in the left abdomen, 21:24 which demonstrates transmural hyperenhancement. No significant colonic wall thickening or hyperenhancement. No perianal inflammatory changes. No abscess. No dilation of bowel to suggest stricture. Colon is fluid-filled which could be seen in the setting of a diarrheal state. Normal appendix. LYMPH NODES: No lymphadenopathy. VASCULAR: Unremarkable ABDOMINAL WALL: Unremarkable. REPRODUCTIVE ORGANS: Intrauterine device in place. BLADDER: Unremarkable PELVIC FREE FLUID: No free fluid or ascites. OSSEOUS STRUCTURES: Unremarkable. MR/MR abdomen wo/w con IMPRESSION: Single loop of featureless small bowel in the left abdomen which demonstrates transmural hyperenhancement, which can be seen in the setting of infectious or inflammatory enteritis. Colon is fluid-filled which could be seen in the setting of a diarrheal state.
--- NOTE | ~2021-09-23 | MR_ITS ---
EXAMINATION: MR ABDOMEN AND PELVIS WITHOUT AND WITH CONTRAST CLINICAL INFORMATION: Noninfective gastroenteritis and colitis COMPARISON: CT abdomen pelvis 05/11/2018 TECHNIQUE: MRI of the abdomen and pelvis before and after the IV administration of 10 mL of Gadavist was obtained using routine sequences. FINDINGS: LUNG BASES: Trace bilateral pleural effusions. KIDNEYS: Unremarkable. GALLBLADDER: Surgically absent. LIVER AND BILIARY TREE: The liver is normal in signal and morphology. No suspicious liver lesion. No intra or extrahepatic biliary duct dilatation. PANCREAS: Unremarkable SPLEEN: Unremarkable ADRENAL GLANDS: Unremarkable GASTROINTESTINAL TRACT: Stomach is under distended limiting assessment for wall thickening and hyperenhancement. Susceptibility artifact along the greater curvature of the stomach compatible with history of prior gastric sleeve. Duodenal diverticulum. Single loop of featureless small bowel in the left abdomen, 21:24 which demonstrates transmural hyperenhancement. No significant colonic wall thickening or hyperenhancement. No perianal inflammatory changes. No abscess. No dilation of bowel to suggest stricture. Colon is fluid-filled which could be seen in the setting of a diarrheal state. Normal appendix. LYMPH NODES: No lymphadenopathy. VASCULAR: Unremarkable ABDOMINAL WALL: Unremarkable. REPRODUCTIVE ORGANS: Intrauterine device in place. BLADDER: Unremarkable PELVIC FREE FLUID: No free fluid or ascites. OSSEOUS STRUCTURES: Unremarkable. MR/MR pelvis wo/w con IMPRESSION: Single loop of featureless small bowel in the left abdomen which demonstrates transmural hyperenhancement, which can be seen in the setting of infectious or inflammatory enteritis. Colon is fluid-filled which could be seen in the setting of a diarrheal state.
== END 2021-09-23 09:41 | disposition home or self-care (01) ==
LOC: HO.MRI 09:40
PROVIDERS: Visit Provider Internal Medicine Gastroenterology
DX: K52.9 Noninfective gastroenteritis and colitis, unspecified (principal)
CPT/HCPCS: 72197; 74183; A9585

== ENCOUNTER 2021-09-27 08:08 | Outpatient (REF) | payer OTHER, SELFPAY ==
--- NOTE | ~2021-09-27 | XR_ITS ---
EXAMINATION: XR FOOT, LEFT CLINICAL INFORMATION: Displaced fracture of fifth metatarsal bone COMPARISON: None TECHNIQUE: AP, lateral, and oblique views of the left foot. FINDINGS: There is no acute fracture, dislocation or subluxation. Moderate retrocalcaneal and a small to moderate size calcaneal enthesophytes are visualized. Alignment is anatomic. Joint spaces are maintained. There is mild dorsal distal foot soft tissue swelling. XR/XR foot LT min 3V IMPRESSION: No acute fracture or dislocation seen. Moderate retrocalcaneal and calcaneal heel enthesophytes.
== END 2021-09-27 08:09 | disposition home or self-care (01) ==
LOC: HO.HOSX 08:08
PROVIDERS: Visit Provider Physician Assistant
DX: S92.352A Displaced fracture of fifth metatarsal bone, left foot, initial encounter for closed fracture (principal)
CPT/HCPCS: 73630

== ENCOUNTER 2021-10-02 09:06 | Outpatient (REF) | payer OTHER, SELFPAY ==
[2021-10-02 09:24] LABS: MANUAL DIFF FLAG NO
[2021-10-02 10:41] LABS: Basophils Absolute Auto 0.1 X10*3/uL (0.0-0.2); Basophils Percent Auto 0.7 % (0-2); Eosinophils Absolute Auto 0.3 X10*3/uL (0.0-0.4); Eosinophils Percent Auto 4.4 % (0-4); Hematocrit 38.6 % (37.0-47.0); Hemoglobin 12.6 g/dl (12.0-16.0); Imm Gran Abs Auto 0.02 X10*3/uL (0.00-0.03); Imm Gran Pct Auto 0.3 % (0.0-0.4); Lymphocytes Absolute Auto 2.2 X10*3/uL (1.2-4.9); Lymphocytes Percent Auto 29.6 % (20-40); Mean Corpuscular HGB Conc 32.6 g/dl (31.0-35.0); Mean Corpuscular Volume 91.9 fL (80.0-98.0); Mean Platelet Volume 11.7 fL (9.4-12.3); Monocytes Absolute Auto 0.9 X10*3/uL (0.1-1.2); Platelet Count 281 X10*3/uL (160-400); Red Cell Distribution Width 13.3 % (11.0-16.0); White Blood Count 7.5 X10*3/uL (4.8-10.8)
[2021-10-02 11:08] LABS: Anion Gap 11 (12-20); Blood Urea Nitrogen 13 mg/dL (9-16); Carbon Dioxide 25 mmol/L (22-29); Chloride 107 mmol/L (96-108); Cholesterol 236 mg/dL; Estimated Glomerular Filt Rate > 60; Glucose Random 99 mg/dL (60-115); HDL Cholesterol 51 mg/dL; Iron 92 mcg/dL (30-160); LDL Cholesterol Calculated 164 mg/dl; Percent Iron Saturation 24 % (15-50); Potassium 4.2 mmol/L (3.3-5.1); Sodium 139 mmol/L (135-145); Total Iron Binding Capacity 379 mcg/dL (228-428); Triglycerides 106 mg/dL; Unsaturated Iron Binding 287 ug/dL
[2021-10-02 11:32] LABS: Ferritin 50 ng/mL (10-250); T4 Thyroxine 10.7 ug/dL (4.5-12.0); Thyroid Stimulating Hormone 0.12 uIU/mL (0.32-4.0); Vitamin D 25-OH Total 29.7 ng/mL (>30)
[2021-10-02 12:19] LABS: Vitamin B12 342 pg/mL (200-900)
[2021-10-04 03:37] LABS: Triiodothyronine T3 Total 96 ng/dL (76-181)
== END 2021-10-02 09:07 | disposition home or self-care (01) ==
LOC: HO.LAB 09:06
PROVIDERS: Absent Provider Internal Medicine; PCP Internal Medicine; Visit Provider Internal Medicine Gastroenterology
DX: E03.9 Hypothyroidism, unspecified (principal); I10 Essential (primary) hypertension; Z98.84 Bariatric surgery status
CPT/HCPCS: 36415; 80048; 80061; 82306; 82607; 82728; 83540; 84436; 84443; 84480; 85025

== ENCOUNTER 2021-12-02 10:46 | Outpatient (REF) | payer OTHER, SELFPAY ==
--- NOTE | 2021-12-23 09:52 | MHC.AU.AEV ---
Adult Audiological Evaluation Date of Visit: 12/02/21 Reason for Appointment: History of hearing loss. Patient has been followed by [facility]. She is a hearing aid user. Hearing Handicap Inventory Does a hearing problem cause you to feel embarrassed when meeting new people?: Sometimes Does a hearing problem cause you to feel frustrated when talking to members of your family?: Sometimes Do you have difficulty when someone speaks in a whisper?: Yes Do you feel handicapped by a hearing problem?: No Does a hearing problem cause you difficulty when visiting friends, relatives, or neighbors?: Sometimes Does a hearing problem cause you to attend orthodoxy service services less often than you would like?: No Does a hearing problem cause you to have arguments with family members?: No Does a hearing problem cause you difficulty when listening to TV or radio?: Yes Do you feel that any difficult with your hearing limits or hampers your personal or social life?: Sometimes Does a hearing problem cause you difficulty when in a restaurants with relatives or friends?: Yes HHIE SCORE: 20 Based on HHIE score, patient has: Mild to moderate perceived hearing handicap Ear History: Ear Deformity: None Reported Recent Ear Drainage: None Reported Recent Ear Pain: None Reported Family History of Hearing Loss?: Yes: Grandfather Recent Ear Infections: None Reported Ear Infections in Childhood: None Reported History of Ear Wax Buildup: None Reported Previous Ear Surgery: None Reported Bothersome Tinnitus/Ringing/Noises in Ears: None Reported Ear used on the phone: Left Ear Blocked/Full Sensation in Ear(s): Both Ears History of occupational noise exposure?: No History: No Medical History: Medical History: Hodgkin's Disease, Migraine, Thyroid Disease Otoscopy: Right Ear: Unremarkable Left Ear: Unremarkable Tympanometry: Tympanometry performed due to: To assess integrity of the middle ear system Right Ear: Normal Middle Ear System (Type A) Left Ear: Normal Middle Ear System (Type A) Hearing Evaluation: Transducer(s) Used: Insert Earphones Method: Conventional Audiometry Stimuli Used: Pure Tones Right Ear: Description of Hearing: Mild to moderate sensorineural hearing loss, with slight uprising configuration. SRT is 35 dBHL. Word discrimination at 70 dBHL is 96%. Left Ear: Description of Hearing: Mild to moderate sensorineural hearing loss, with slight uprising configuration. SRT is 35 dBHL. Word discrimination at 75 dBHL is 100%. Recommendations: Audiological re-evaluation in one year. Patient is interested in new hearing aids. See Hearing Aid Evaluation report for details. Diagnosis: Primary Diagnosis: H90.3 Bilateral Sensorineural Hearing Loss Signature: Provider: Umang Jones, MARCIO-A
--- NOTE | 2021-12-23 09:54 | MHC.AU.MED ---
Medical Clearance for Hearing Instrumentation Date: 12/23/21 Patient Name: Rose Marie Ross Date of : 1965 Primary Care Provider: Referring Provider: Huong Johnson MD We have seen your patient on 12/02/21 and have determined that they are a candidate for amplification (See accompanying report). Specifically, they would benefit from: Hearing aid use in both ears There is a statute that addresses Medical Evaluation Requirements prior to fitting a patient with a hearing aid. According to [place] statute 265 CMR:6.03(1), (a) General. Except as provided in 265 CMR 6.03(1)(b), a labor arbitrator hearing office shall not sell a hearing aid unless the prospective user has presented to the labor arbitrator hearing office a written statement signed by a licensed physician that states that the patient's hearing loss has been medically evaluated and the patient may be considered a candidate for a hearing aid. The medical evaluation must have taken place within the preceding six months. Please note: Due to the [place] Statute referenced above, we cannot accept a signature other than that of a licensed physician. CUSTOMER ORDERS CLERK and PA signatures cannot be accepted. I am in agreement with the above recommendation. There is no medical contraindication for hearing instrumentation. Physician Signature Date Physician Name (Printed)
== END 2021-12-02 10:47 | disposition home or self-care (01) ==
LOC: HO.SH 10:46
PROVIDERS: Visit Provider Internal Medicine
DX: Z01.118 Encounter for examination of ears and hearing with other abnormal findings (principal); H90.3 Sensorineural hearing loss, bilateral
CPT/HCPCS: 92557; 92567

== ENCOUNTER 2021-12-02 11:48 | Outpatient (REF) | payer SELFPAY | END 2021-12-02 11:49 | disposition home or self-care (01) | LOC: HO.HAP 11:48 | PROVIDERS: Visit Provider Internal Medicine | DX: Z46.1 Encounter for fitting and adjustment of hearing aid (principal) | CPT/HCPCS: 92591 ==

== ENCOUNTER → 2022-01-16 14:57 | Outpatient (BNVA) | payer OTHER, SELFPAY | PROVIDERS: PCP Internal Medicine; Visit Provider Internal Medicine | DX: Z13.89 Encounter for screening for other disorder (principal) | CPT/HCPCS: 73130; 99202 ==

== ENCOUNTER → 2022-01-22 12:39 | Day surgery (SDC) | payer OTHER, SELFPAY ==
--- NOTE | 2022-01-21 07:48 | HO.ANESPROP2 ---
Documented by User: Kayla Amaya NP 01/21/22 07:57 HPI - Anesthesia Eval Consult details Narrative: 56yo F for Upper Endoscopy Chronic opioid PMFSH Active Problems Active Problems: All Active Problems (Updated 01/16/22 @ 15:21 by Vikram Bradford MD) Crush accident (Acute) Tarsal tunnel syndrome, left lower limb (Acute) Ileitis (Acute) Sprain and strain of other specified sites of shoulder and upper arm (Acute) Injury of right rotator cuff (Acute) Abnormal LFTs (Acute) Low vitamin B12 level (Acute) Past Medical History Medical History (Updated 01/16/22 @ 15:21 by Vikram Bradford MD) Anxiety and depression Asthma GERD (gastroesophageal reflux disease) Hepatic steatosis Herpes Hodgkins lymphoma Hx of irritable bowel syndrome Hypothyroid Shingles Family History Family History Mother Colon cancer Father Hypertension Prostate cancer Son Diabetes Daughter Autism Family history of problems with anesthesia: No Surgical History Surgical History (Updated 09/27/21 @ 15:11 by Miley Bro Amanda) Delivery by section Gastric banding status H/O ankle fusion History of arthroscopy of right shoulder History of cholecystectomy History of esophagogastroduodenoscopy (EGD) History of sleeve gastrectomy Hx of colonoscopy History of Problems with Anesthesia: No Social History Social History Patient Tobacco Use Status: Never used Tobacco Advance Directives: No Advance Directives Information Provided: Yes 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 Allergies Allergy/AdvReac Type Severity Reaction Status Date / Time oxycodone [From PERCOCET] Allergy Intermediate HIVES Verified 09/27/21 15:10 Sulfa (Sulfonamide Allergy Intermediate HIVES Verified 09/27/21 15:10 Antibiotics) [SULFA (SULFONAMIDE ANTIBIOTICS)] diatrizoate meglumine Allergy Unknown red rash Verified 09/27/21 15:10 [Gastrografin] Home Medications Medication Instructions Recorded Confirmed Last Taken Type loratadine 5 mg chewable tablet 5 mg PO BID 02/08/20 07/30/21 Unknown History (Children's Claritin) meclizine 12.5 mg tablet 12.5 mg PO DAILY 02/08/20 07/30/21 Unknown History morphine 15 mg immediate release 15 mg PO BID PRN Pain 02/08/20 07/30/21 Unknown History tablet pantoprazole 40 mg tablet,delayed 40 mg PO DAILY 02/08/20 07/30/21 Unknown History release sertraline 100 mg tablet 100 mg PO DAILY 02/08/20 07/30/21 Unknown History trazodone 50 mg tablet 50 mg PO BEDTIME PRN Insomnia 02/08/20 07/30/21 Unknown History levothyroxine 137 mcg tablet 137 mcg PO DAILY 08/19/21 Unknown History (Levoxyl) lorazepam 0.5 mg tablet 0.5 mg PO BID PRN anxiety 08/19/21 Unknown History sertraline 25 mg tablet 25 mg PO DAILY 08/19/21 Unknown History terbinafine HCl 1 % topical cream appl topical 08/19/21 Unknown History Exam Exam Date and Time: January 21, 2022 0748 Pertinent Lab Results Pertinent Lab Results: Laboratory Tests 10/02/21 10/02/21 09:21 09:21 WBC 7.5 Hgb 12.6 Hct 38.6 Plt Count 281 Sodium 139 Potassium 4.2 Chloride 107 Carbon Dioxide 25 BUN 13 Creatinine 0.71 Assessment and Plan Assessment Anesthesia Assessment: Chart Reviewed Final Anesthetic Review Family History of Problems with Anesthesia: No History of Problems with Anesthesia: No Documented by User: Stephanie Estrada MD 01/22/22 13:41 [facility] Past Medical History Medical History (Updated 01/16/22 @ 15:21 by Vikram Bradford MD) Anxiety and depression Asthma GERD (gastroesophageal reflux disease) Hepatic steatosis Herpes Hodgkins lymphoma Hx of irritable bowel syndrome Hypothyroid Shingles Family History Family History Mother Colon cancer Father Hypertension Prostate cancer Son Diabetes Daughter Autism Surgical History Surgical History (Updated 09/27/21 @ 15:11 by THU Camejo) Delivery by section Gastric banding status H/O ankle fusion History of arthroscopy of right shoulder History of cholecystectomy History of esophagogastroduodenoscopy (EGD) History of sleeve gastrectomy Hx of colonoscopy Social History Social History Patient Tobacco Use Status: Never used Tobacco Advance Directives: No Advance Directives Information Provided: Yes 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 Allergies Allergy/AdvReac Type Severity Reaction Status Date / Time oxycodone [From PERCOCET] Allergy Intermediate HIVES Verified 09/27/21 15:10 Sulfa (Sulfonamide Allergy Intermediate HIVES Verified 09/27/21 15:10 Antibiotics) [SULFA (SULFONAMIDE ANTIBIOTICS)] diatrizoate meglumine Allergy Unknown red rash Verified 09/27/21 15:10 [Gastrografin] Home Medications Medication Instructions Recorded Confirmed Last Taken Type loratadine 5 mg chewable tablet 5 mg PO BID 02/08/20 07/30/21 Unknown History (Children's Claritin) meclizine 12.5 mg tablet 12.5 mg PO DAILY 02/08/20 07/30/21 Unknown History morphine 15 mg immediate release 15 mg PO BID PRN Pain 02/08/20 07/30/21 Unknown History tablet pantoprazole 40 mg tablet,delayed 40 mg PO DAILY 02/08/20 07/30/21 Unknown History release sertraline 100 mg tablet 100 mg PO DAILY 02/08/20 07/30/21 Unknown History trazodone 50 mg tablet 50 mg PO BEDTIME PRN Insomnia 02/08/20 07/30/21 Unknown History levothyroxine 137 mcg tablet 137 mcg PO DAILY 08/19/21 Unknown History (Levoxyl) lorazepam 0.5 mg tablet 0.5 mg PO BID PRN anxiety 08/19/21 Unknown History sertraline 25 mg tablet 25 mg PO DAILY 08/19/21 Unknown History terbinafine HCl 1 % topical cream appl topical 08/19/21 Unknown History Exam Airway Mallampati Class: II TM Dist: >3cm Neck ROM: Full Loose/Missing/Broken Teeth: No Heart: RRR Lungs: CTA Assessment and Plan Final Anesthetic Review ASA Class: II Final Preanesthetic Review: Meds/Allgs Chart Reviewed, Consent Obtained/Reviewed and Anes Risks/Benef Reviewed Patient Risk: Low Procedure Risk: Intermediate Anesthetic Plan Anesthetic Plan: MAC: Disposition: Standard PACU
--- NOTE | 2022-01-22 13:35 | MHC.SHP ---
Pre-Procedural Eval Section A Date of Service: 01/22/22 Section B Chief Complaint: abdominal pain Details of Present Illness: bloating Relevant Family History (Specify if Yes): No Relevant Social History: None Present Medications: see Short Stay Collaborative assessment Medical History: Significant History (Anxiety and depression Asthma GERD (gastroesophageal reflux disease) Hepatic steatosis Herpes Hodgkins lymphoma Hx of irritable bowel syndrome Hypothyroid Shingles) History of Previous Operations: Relevant previous surgery/procedure and date(s) (Delivery by section Gastric banding status H/O ankle fusion History of arthroscopy of right shoulder History of cholecystectomy History of esophagogastroduodenoscopy (EGD) History of sleeve gastrectomy Hx of colonoscopy) Allergies: Allergies Allergy/AdvReac Type Severity Reaction Status Date / Time oxycodone [From PERCOCET] Allergy Intermediate HIVES Verified 09/27/21 15:10 Sulfa (Sulfonamide Allergy Intermediate HIVES Verified 09/27/21 15:10 Antibiotics) [SULFA (SULFONAMIDE ANTIBIOTICS)] diatrizoate meglumine Allergy Unknown red rash Verified 09/27/21 15:10 [Gastrografin] Review of Systems Sugical H&P ROS: Negative: Constitution, Cardiovascular, Respiratory, Neurological, Psychiatric, Hem-Onc, Allergic/Immunologic, Gastrointestinal, Genitourinary, Musculoskeletal, Integumentary, Endocrine and Eyes/Ears/Nose/Throat Exam Surgical H&P Exam: Normal: HEENT, Normal: Heart, Normal: Lungs, Normal: Extremities, Normal: Abdomen, Normal: Skin and Normal: Neurological Plan Diagnosis/Plan: Unchanged I have reviewed the history and physical and performed a pertinent physical examination on my patient. No changes have occurred unless specified. EGD for blaoting and abdominal pain
[2022-01-22 13:41] VITALS: BMI 40.2
[2022-01-22] MEDS: Lactated Ringers 1,000 ML 100 ML IVCONT (14:03)
--- NOTE | 2022-01-22 14:17 | W.PM.OPN ---
Operative Note Operative Note Date of Service: 01/22/22 Narrative: Procedure Description: EGD Indication: bloating, abdominal pain Anesthesia: MAC FLEXIBLE TRANSORAL UPPER GASTROINTESTINAL ENDOSCOPY UPPER ENDOSCOPY Consent: Indications for the procedure and potential complications of bleeding, perforation, reaction to medications and missed diagnosis were discussed with the patient and informed consent was obtained. Instrument: Olympus GIF H 190 J mid size upper endoscope Monitoring: Vital signs and clinical assessment, continuous EKG monitoring, Pulse oximetry, Carbon Dioxide monitoring and blood pressure monitoring were done throughout the procedure. Procedure: The patient was placed in the left lateral decubitis position and pre-procedure medications were administered and a bite block was placed. The endoscope was inserted into the mouth and advanced under direct vision to the third part of duodenum. A careful inspection was made as the upper endoscope was withdrawn including a retroflexed examination of the proximal stomach; Findings and interventions are described below. Findings: Larynx:normal Esophagus: GE junction at 38 cm, diaphragm hiatus at 38 cm, partial schatzki ring, bx taken from GEJ and random esophagus Stomach: Patchy gastric erythema, altered anatomy with L shaped stomach with hx of sleeve gastrectomy. Biopsies were obtained. Grade 2 flap valve on retroflexed examination of the cardia. Duodenum: Normal bulb and descending duodenum, bx taken Intervention: Biopsies as noted above Impression/Findings: partial schatzki gastritis PLAN: await bx results check nsaid hx check ppi compliance small meals with fluids
[2022-01-22 14:38] VITALS: BP 107/44; PULSE 63; RESP 20; TEMP 36.1
[2022-01-22 14:53] VITALS: BP 125/63; PULSE 67; RESP 20
[2022-01-22 15:08] VITALS: BP 137/65; PULSE 63; RESP 20
[2022-01-22 15:23] VITALS: BP 145/76; PULSE 63; RESP 16; TEMP 37
[2022-01-22 16:15] VITALS: BP 133/56; PULSE 63; RESP 16; TEMP 37
== END | disposition home or self-care (01) ==
PROVIDERS: PCP Internal Medicine; Visit Provider Internal Medicine Gastroenterology
PROC: 0DJ08ZZ Inspection of Upper Intestinal Tract, Via Natural or Artificial Opening Endoscopic (ICD-10-PCS; CPT 43235; principal; 2022-01-22 13:50)
DX: K29.50 Unspecified chronic gastritis without bleeding (principal); K52.9 Noninfective gastroenteritis and colitis, unspecified; K31.7 Polyp of stomach and duodenum; K22.2 Esophageal obstruction; K44.9 Diaphragmatic hernia without obstruction or gangrene; Z98.84 Bariatric surgery status; K21.9 Gastro-esophageal reflux disease without esophagitis; J45.909 Unspecified asthma, uncomplicated; K76.0 Fatty (change of) liver, not elsewhere classified; F41.8 Other specified anxiety disorders; Z85.71 Personal history of Hodgkin lymphoma; E03.9 Hypothyroidism, unspecified; Z88.2 Allergy status to sulfonamides; Z88.8 Allergy status to other drugs, medicaments and biological substances; Z90.49 Acquired absence of other specified parts of digestive tract
CPT/HCPCS: 43251; 43239; 88305; 88342

== ENCOUNTER 2022-04-21 11:40 | Outpatient (REF) | payer OTHER, SELFPAY ==
[2022-04-21 13:58] LABS: Free T4 (Free Thyroxine) 1.22 ng/dL (0.71-1.85); Thyroid Stimulating Hormone < 0.01 uIU/mL (0.32-4.0)
== END 2022-04-21 11:41 | disposition home or self-care (01) ==
LOC: HO.LAB 11:40
PROVIDERS: Absent Provider Internal Medicine; PCP Internal Medicine; Visit Provider Internal Medicine Gastroenterology
DX: E03.9 Hypothyroidism, unspecified (principal); I10 Essential (primary) hypertension; K52.9 Noninfective gastroenteritis and colitis, unspecified; Z98.84 Bariatric surgery status
CPT/HCPCS: 36415; 84439; 84443

== ENCOUNTER 2022-04-23 12:53 | Emergency (ER) | payer OTHER, SELFPAY ==
--- NOTE | ~2022-04-23 | XR_ITS ---
EXAMINATION: RIGHT HIP, RIGHT KNEE, RIGHT ANKLE CLINICAL INFORMATION: Fall with pain COMPARISON: KUB 08/09/2018 TECHNIQUE: Single view pelvis with 2 additional views right hip, 4 views right knee, 3 views right ankle FINDINGS: Pelvis and hips appear normal. No fractures are seen. An IUD is present in the uterus. No significant bone, joint or soft tissue abnormality is seen in the knee. There is been prior repair of ankle fracture is 3 screws through the distal tibial metaphysis and 2 screws extending through the fibula into the tibia. There appears to be bony fusion between the tibia and fibula. A small calcaneal plantar spur is present. No acute fractures. XR/XR knee RT 4V IMPRESSION: 1. No evidence of an acute traumatic injury. 2. Evidence of prior ankle fracture repair.
--- NOTE | ~2022-04-23 | XR_ITS ---
EXAMINATION: RIGHT HIP, RIGHT KNEE, RIGHT ANKLE CLINICAL INFORMATION: Fall with pain COMPARISON: KUB 08/09/2018 TECHNIQUE: Single view pelvis with 2 additional views right hip, 4 views right knee, 3 views right ankle FINDINGS: Pelvis and hips appear normal. No fractures are seen. An IUD is present in the uterus. No significant bone, joint or soft tissue abnormality is seen in the knee. There is been prior repair of ankle fracture is 3 screws through the distal tibial metaphysis and 2 screws extending through the fibula into the tibia. There appears to be bony fusion between the tibia and fibula. A small calcaneal plantar spur is present. No acute fractures. XR/XR ankle RT min 3V IMPRESSION: 1. No evidence of an acute traumatic injury. 2. Evidence of prior ankle fracture repair.
--- NOTE | ~2022-04-23 | XR_ITS ---
EXAMINATION: RIGHT HIP, RIGHT KNEE, RIGHT ANKLE CLINICAL INFORMATION: Fall with pain COMPARISON: KUB 08/09/2018 TECHNIQUE: Single view pelvis with 2 additional views right hip, 4 views right knee, 3 views right ankle FINDINGS: Pelvis and hips appear normal. No fractures are seen. An IUD is present in the uterus. No significant bone, joint or soft tissue abnormality is seen in the knee. There is been prior repair of ankle fracture is 3 screws through the distal tibial metaphysis and 2 screws extending through the fibula into the tibia. There appears to be bony fusion between the tibia and fibula. A small calcaneal plantar spur is present. No acute fractures. XR/XR hip RT min 2V IMPRESSION: 1. No evidence of an acute traumatic injury. 2. Evidence of prior ankle fracture repair.
--- NOTE | 2022-04-23 13:22 | ED.FALL ---
HPI - Fall General Chief Complaint: Extremity Injury, Lower <Brigitte York CNP - Last Filed: 04/23/22 13:30> Stated Complaint: fell down stairs 04 19 22 <Brigitte York CNP - Last Filed: 04/23/22 13:30> Time Seen by Provider: 04/23/22 13:42 <Brigitte York CNP - Last Filed: 04/23/22 13:30> History of Present Illness HPI Narrative: Patient complains of right lower leg and right knee pain and some right hip pain after a fall down several stairs 5 days ago, she has been walking with a limp, she denies any other injury there was no head injury no headache no neck pain no back pain no arm pain no left leg pain <RAINA Sanchez - Last Filed: 05/25/22 14:32> Related Data Home Medications: Home Medications Medication Instructions Recorded Confirmed loratadine 5 mg chewable tablet 5 mg PO BID 02/08/20 07/30/21 (Children's Claritin) meclizine 12.5 mg tablet 12.5 mg PO DAILY 02/08/20 07/30/21 morphine 15 mg immediate release 15 mg PO BID PRN Pain 02/08/20 07/30/21 tablet pantoprazole 40 mg tablet,delayed 40 mg PO DAILY 02/08/20 07/30/21 release sertraline 100 mg tablet 100 mg PO DAILY 02/08/20 07/30/21 trazodone 50 mg tablet 50 mg PO BEDTIME PRN Insomnia 02/08/20 07/30/21 levothyroxine 137 mcg tablet 137 mcg PO DAILY 08/19/21 (Levoxyl) lorazepam 0.5 mg tablet 0.5 mg PO BID PRN anxiety 08/19/21 sertraline 25 mg tablet 25 mg PO DAILY 08/19/21 terbinafine HCl 1 % topical cream appl topical 08/19/21 albuterol sulfate 90 mcg/actuation inhalation 04/21/22 aerosol inhaler celecoxib 200 mg capsule (Celebrex) 200 mg PO BID 04/21/22 sumatriptan succinate 50 mg tablet mg PO 04/21/22 Previous Rx's Medication Instructions Recorded mesalamine 250 mg capsule,extended 1,000 mg PO TID 90 days #1,080 caps 02/27/22 release (Pentasa) cane #1 ea 04/23/22 <Brigitte York CNP - Last Filed: 04/23/22 13:30> Allergies/Adverse Reactions: Allergies Allergy/AdvReac Type Severity Reaction Status Date / Time oxycodone [From PERCOCET] Allergy Intermediate HIVES Verified 04/21/22 12:03 Sulfa (Sulfonamide Allergy Intermediate HIVES Verified 04/21/22 12:03 Antibiotics) [SULFA (SULFONAMIDE ANTIBIOTICS)] diatrizoate meglumine Allergy Unknown red rash Verified 04/21/22 12:03 [Gastrografin] <Brigitte York CNP - Last Filed: 04/23/22 13:30> [facility] Past Medical History Source: nursing notes reviewed <RAINA Sanchez - Last Filed: 05/25/22 14:32> Medical History: Medical History Anxiety and depression Asthma GERD (gastroesophageal reflux disease) Hepatic steatosis Herpes Hodgkins lymphoma Hx of irritable bowel syndrome Hypothyroid Shingles <Brigitte York CNP - Last Filed: 04/23/22 13:30> Surgical History: Surgical History Delivery by section Gastric banding status H/O ankle fusion History of arthroscopy of right shoulder History of cholecystectomy History of esophagogastroduodenoscopy (EGD) History of sleeve gastrectomy Hx of colonoscopy <Brigitte York CNP - Last Filed: 04/23/22 13:30> Family History Family History: Family History Mother Colon cancer Father Hypertension Prostate cancer Son Diabetes Daughter Autism <Brigitte York CNP - Last Filed: 04/23/22 13:30> Social History Social History: Social History Patient Tobacco Use Status: Never used Tobacco 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: employed 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 <Brigitte York CNP - Last Filed: 04/23/22 13:30> Physical Exam Vital Signs: Vital Signs: Last Vital Signs Temp 98 F 04/23/22 13:23 Pulse 87 04/23/22 13:23 Resp 18 04/23/22 13:23 BP 159/69 H 04/23/22 13:23 Pulse Ox 96 04/23/22 13:23 O2 Del Method 04/23/22 13:23 BMI result Body Mass Index 40.7 <Brigitte York CNP - Last Filed: 04/23/22 13:30> Vital Signs: Last Vital Signs Temp 98 F 04/23/22 13:23 Pulse 87 04/23/22 13:23 Resp 18 04/23/22 13:23 BP 159/69 H 04/23/22 13:23 Pulse Ox 96 04/23/22 13:23 O2 Del Method 04/23/22 13:23 BMI result Body Mass Index 40.7 <RAINA Sanchez - Last Filed: 05/25/22 14:32> General appearance no distress cooperative alert The head is normocephalic atraumatic Neck is supple nontender full range of motion Chest wall nontender Chest clear to auscultation bilateral Abdomen soft nontender The back had no significant tenderness, full range of motion Extremities the right hip had mild tenderness but full range of motion The right ankle had mild tenderness but no swelling or ecchymosis, positive full range of motion The right knee had medial and lateral tenderness, mild swelling no obvious effusion, patient can extend to 180 degrees and lift the leg, flexion to about 90, ambulates with a limp but can bear weight, skin is intact no ligamentous laxity and neurovascular intact distal Other extremities normal Neuro no focal motor or sensory deficits <RAINA Sanchez - Last Filed: 05/25/22 14:32> Course Course Course Narrative: This is an RME: Additional HPI, ROS, PE not included below will be deferred to primary provider. Patient is a 56-year-old female who presents to emergency department for evaluation after fall 4 days ago 04/19/2022, down approximately 6-7 stairs.. States that she was evaluated by her primary care provider 2 days ago, states that there were no x-rays obtained, she was advised if pain is worsening, that she will likely require referral to Orthopedics, as she states she has a history of fusion to the right ankle. Currently. She is complaining of pain to the right hip, right knee, and right ankle. She fell landing on the right knee and twisted as she fell. She is able to weight bear, but this causes significant pain. She tried calling her doctor this morning but has yet to receive a call back. PE: Extremity neurovascularly intact distally, no obvious deformities Plan: will obtain XR imaging, placed back in waiting room pending bed availability <Brigitte York CNP - Last Filed: 04/23/22 13:30> This is an RME: Additional HPI, ROS, PE not included below will be deferred to primary provider. Patient is a 56-year-old female who presents to emergency department for evaluation after fall 4 days ago 04/19/2022, down approximately 6-7 stairs.. States that she was evaluated by her primary care provider 2 days ago, states that there were no x-rays obtained, she was advised if pain is worsening, that she will likely require referral to Orthopedics, as she states she has a history of fusion to the right ankle. Currently. She is complaining of pain to the right hip, right knee, and right ankle. She fell landing on the right knee and twisted as she fell. She is able to weight bear, but this causes significant pain. She tried calling her doctor this morning but has yet to receive a call back. PE: Extremity neurovascularly intact distally, no obvious deformities Plan: will obtain XR imaging, placed back in waiting room pending bed availability X-rays were negative of right ankle hip and knee, patient has good range of motion in the knee the ankle and the hip, but there is bruising over the anterior lower leg and knee She can ambulate easily with a limp and is discharged to follow with orthopedics as needed and given a 2 day work note <RAINA Sanchez - Last Filed: 05/25/22 14:32> Discharge Plan Discharge Clinical Impression: Right knee sprain, Multiple contusions <Brigitte York CNP - Last Filed: 04/23/22 13:30> Patient Disposition: Home, Self-Care <Brigitte York CNP - Last Filed: 04/23/22 13:30> Additional Instructions: Your x-rays were normal Physical exam as well showed very unlikely that there are any fractures Follow with orthopedics if pain continues for further evaluation for soft tissue injuries Return any time any worse condition or any concerns You can use Tylenol as needed, apply ice, elevate leg <Brigitte York CNP - Last Filed: 04/23/22 13:30> Prescriptions: New (DME) cane Device See Rx Instructions .Route Qty: 1 0RF Rx Instructions: As directed No Action Pentasa 250 mg capsule, extended release 1,000 mg PO TID 90 Days Qty: 1080 2RF sertraline 100 mg tablet 100 mg PO DAILY pantoprazole 40 mg tablet,delayed release (DR/EC) 40 mg PO DAILY trazodone 50 mg tablet 50 mg PO BEDTIME PRN (Reason: Insomnia) meclizine 12.5 mg tablet 12.5 mg PO DAILY morphine 15 mg tablet 15 mg PO BID PRN (Reason: Pain) Children's Claritin 5 mg tablet,chewable 5 mg PO BID levothyroxine [Levoxyl] 137 mcg tablet 137 mcg PO DAILY sertraline 25 mg tablet 25 mg PO DAILY lorazepam 0.5 mg tablet 0.5 mg PO BID PRN (Reason: anxiety) terbinafine HCl 1 % cream topical albuterol sulfate 90 mcg/actuation HFA aerosol inhaler inhalation sumatriptan succinate 50 mg tablet PO celecoxib [Celebrex] 200 mg capsule 200 mg PO BID <Brigitte York CNP - Last Filed: 04/23/22 13:30> Referrals: Braeden Childers MD [Physician] - (Right knee sprain) <Brigitte York CNP - Last Filed: 04/23/22 13:30> Stand Alone Forms: Work/School Release <Brigitte York CNP - Last Filed: 04/23/22 13:30> Interventions: ED Discharge Assessment Last Done: 04/23/22 16:24 <Brigitte York CNP - Last Filed: 04/23/22 13:30> Discharge Date/Time: 04/23/22 16:26 <Brigitte York CNP - Last Filed: 04/23/22 13:30>
[2022-04-23 13:23] VITALS: BP 159/69; PULSE 87; RESP 18; TEMP 36.6; O2SAT 96; BMI 40.7
== END 2022-04-23 16:26 | disposition home or self-care (01) ==
PROVIDERS: Emergency Provider Student in an Organized Health Care Education/Training Program; PCP Internal Medicine
DX: S83.91XA Sprain of unspecified site of right knee, initial encounter (principal); S80.11XA Contusion of right lower leg, initial encounter; S80.01XA Contusion of right knee, initial encounter; W10.8XXA Fall (on) (from) other stairs and steps, initial encounter; M25.551 Pain in right hip; Z79.899 Other long term (current) drug therapy; Y93.89 Activity, other specified; Y92.019 Unspecified place in single-family (private) house as the place of occurrence of the external cause; Y99.9 Unspecified external cause status
CPT/HCPCS: 73502; 73564; 73610; 99282; 99283

== ENCOUNTER 2022-05-15 07:25 | Outpatient (REF) | payer OTHER, SELFPAY ==
--- NOTE | ~2022-05-15 | MR_ITS ---
EXAMINATION: MR KNEE WITHOUT CONTRAST, RIGHT CLINICAL INFORMATION: Right knee pain COMPARISON: Radiographs 04/23/2022 TECHNIQUE: MRI of the knee without contrast was performed using routine sequences on a high-field scanner. FINDINGS: MENISCI: Medial Meniscus: Intact Lateral Meniscus: Intact LIGAMENTS: Cruciate: Intact Collateral: Intact EXTENSOR MECHANISM: Intact. Prepatellar subcutaneous edema and trace fluid. ARTICULAR CARTILAGE/BONE: Patellofemoral Compartment: Minimal articular cartilage signal heterogeneity of the central patella. Medial Compartment: Focus of cartilage signal heterogeneity of the lateral weightbearing femoral condyle. Lateral Compartment: Cartilage thinning and surface irregularity of the tibia. JOINT FLUID AND BURSAE: No joint effusion. MR/MR knee RT wo con IMPRESSION: 1. No meniscal tear. 2. Mild tricompartmental osteoarthritis. No joint effusion.
== END 2022-05-15 07:26 | disposition home or self-care (01) ==
LOC: HO.MRI 07:25
PROVIDERS: PCP Internal Medicine; Visit Provider Orthopaedic Surgery
DX: S83.241A Other tear of medial meniscus, current injury, right knee, initial encounter (principal)
CPT/HCPCS: 73721

== ENCOUNTER → 2022-05-19 14:50 | Outpatient (REF) | payer OTHER, SELFPAY ==
--- NOTE | 2022-05-19 14:53 | CA_ITS ---
Transthoracic Echocardiogram Patient (Last, First, Middle): Rose Marie Ross M Gender: Female Date of : 1965 Age: 56 Procedure Date: 05/19/2022 Procedure Type: Transthoracic Echocardiogram Location: OP Height: 157.48 cm Weight: 99.79 kg BSA: 1.99 m2 Heart Rate: bpm BP: 110 / 52 mmHg Green Chain Puller: TO Referring MD: Robbie Cohwdhury MD Symptoms: I35.0 - Nonrheumatic aortic (valve) stenosis Study Quality: Fair/Contrast ECG Rhythm: Sinus Conclusions: - The left ventricular systolic function is normal. The calculated ejection fraction is 66% by biplane method. - There is mild to moderate aortic valve stenosis. - There is mild to moderate mitral valve stenosis. Findings Procedure Information Contrast agent, definity, is being given per protocol without apparent complications. Left Ventricle Normal left ventricular cavity size. There is normal left ventricular wall thickness. The left ventricular systolic function is normal. The calculated ejection fraction is 66% by biplane method. There is no evidence of regional wall motion abnormalities. Diastolic function is normal for age. Right Ventricle Normal right ventricular cavity size. There is normal right ventricular systolic function. Atria Both atria are normal in size. Aortic Valve There is mild calcification of the aortic valve. There is mild to moderate aortic valve stenosis. The peak aortic velocity is 2.42 m/s with a calculated peak gradient of 23 mmHg. The mean gradient is 14 mmHg. The aortic valve area is 1.27 cm2. There is mild aortic valve regurgitation. Dimensional index 0.43. Mitral Valve There is moderate mitral annular calcification. There is mild mitral valve regurgitation. There is mild to moderate mitral valve stenosis. Pulmonic Valve The pulmonic valve is likely normal. Tricuspid Valve Normal tricuspid valve structure. There is trace tricuspid valve regurgitation. Tricuspid regurgitation envelope is inadequate for calculation of right ventricular systolic pressure. Great Vessels The asc aorta is normal in size. Venous The inferior vena cava is normal in size and collapses greater than 50% with inspiration. Pericardium/Pleural There is no evidence of pericardial effusion. Prior Study Comparison Changes noted compared to prior study dated: 11/13/2017. Some progression of valvular abnormalities. Measurements 2D Linear Measurements IVSd: 0.88 0.6-0.9/0.6-1.0 cm LVIDd: 4.83 3.9-5.3/4.2-5.9 cm LVIDd Index: 2.43 2.4-3.2/2.2-3.1 cm/m2 LVIDs: 3.57 2.0-3.6 cm LVPWd: 0.83 0.7-1.1 cm LA Diam: 3.50 2.7-3.8/3.0-4.0 cm LAIDs Index: 1.76 1.5-2.3 cm/m2 LV Mass: 173.73 67-162/88-224 g LV Mass Index: 87.30 43-95/49-115 g/m2 LVOT Diam: 2.00 3.0+(-)1.3 cm 2D Systolic Function EF 4C: 66.40 >55% EF 2C: 64.70 >55% EF BiP: 65.90 >55% Mitral Valve MV VTI: 0.47 MV Pk Godwin: 1.66 MV Mn Godwin: 0.98 MV Pk Grad: 11.00 MV Mn Grad: 4.00 MV Pk E: 1.44 MV PK A: 1.02 MV Decel Time: 231.00 E/A: 1.40 E'Lateral: 10.30 E'Medial: 5.98 E/E' Med: 24.10 E/E' Lat: 14.00 PHT: 68.00 MVA PHT: 3.24 MVA Continuity: 1.55 Decel Vinton: 6.25 Aortic Valve AoV Pk Godwin: 2.42 AoV Mn Godwin: 1.83 AoV VTI: 0.58 AoV Pk Grad: 23.00 Aov Mn Grad: 14.00 MAURO Cont.VTI: 1.27 AI Pk Godwin: 4.39 AI Vinton: 3.46 LVOT LVOT Pk Godwin: 1.05 LVOT Mn Godwin: 0.75 LVOT VTI: 0.23 LVOT Pk Grad: 4.00 LVOT Mn Grad: 3.00 LVOT Diam: 2.00 LVOT Area: 3.14 Diastolic Function MV Pk E: 1.44 MV Pk A: 1.02 E/A: 1.40 E'Medial: 5.98 E/E' Med: 24.10 E' Laterial: 10.30 E/E' Lat: 14.00 Right Ventricle TAPSE (mm): 26.10 TVS' Godwin: 12.00 Tricuspid Valve RA Press: 3.00 Great Vessels Aorta Sinus of Valsalva: 2.81 2.0-3.[address] Ridge: 1.95 1.7-3.4 cm Ao Asc: 2.90 2.1-3.4 cm Updated in Other Vendor System with Status of Final Darrell Mcginnis MD electronically signed on 05/19/2022 5:13:03 PM with status of Final
== END ==
LOC: HO.CARD 14:50
PROVIDERS: PCP Internal Medicine; Visit Provider Internal Medicine Gastroenterology
DX: I35.0 Nonrheumatic aortic (valve) stenosis (principal)
CPT/HCPCS: 93306; Q9957

== ENCOUNTER 2022-06-11 09:07 | Outpatient (REF) | payer OTHER, SELFPAY ==
--- NOTE | ~2022-06-11 | MR_ITS ---
EXAMINATION: MRI ABDOMEN WITHOUT/WITH CONTRAST MRI PELVIS WITHOUT/WITH CONTRAST CLINICAL INFORMATION: History of small bowel inflammation. Evaluate for resolution of Crohn disease. Diarrhea. History of gastric sleeve procedure. COMPARISON: MRI abdomen and pelvis from 09/23/2021. CT abdomen and pelvis from 05/11/2018. TECHNIQUE: MR imaging examination of the abdomen pelvis is performed on a high-field magnet using standard sequences without and with intravenous administration of 10 mL Gadavist. Oral contrast (1500 mL) was utilized to distend the gastrointestinal tract. FINDINGS: LOCALIZER IMAGES: Large body habitus. Edema within subcutaneous tissues of the back. LUNG BASES: Normal. No consolidation or pleural effusion. LIVER, GALLBLADDER, AND BILIARY TREE: Liver has normal size, contour and parenchymal signal. The gallbladder is surgically absent. No dilated bile ducts. Common bile duct is 0.4 cm diameter. PANCREAS: Mild diffuse atrophy without focal lesion. No pancreatic ductal dilatation or peripancreatic fluid. SPLEEN: Normal. ADRENAL GLANDS: Normal. KIDNEYS: Kidneys are normal in size and enhance symmetrically. No renal mass, hydronephrosis or perinephric edema. There is normal excretion of contrast into the nondilated collecting systems. BOWEL AND PERITONEUM: The stomach has a somewhat tubular shape as expected given history of gastric sleeve surgery. No hiatal hernia. A diverticulum of the second portion of the duodenum measures 3.4 cm AP. No mucosal hyperenhancement or edematous thickening of bowel pires. No mural stratification, mesenteric fat stranding or enteric fistulas. No vascular engorgement of the vasa recta. No regions of fibrous stenosing disease, bowel dilatation or abscess formation. The appendix is normal. The perirectal soft tissues are normal. ABDOMINAL WALL: Unremarkable. LYMPH NODES: No pathologic sized lymph nodes in the abdomen or pelvis. No inguinal lymphadenopathy. VASCULATURE: Abdominal aorta is normal in size. Inferior vena cava is normal. The mesenteric, portal and hepatic veins are patent. PELVIC VISCERA: The uterus is anteverted, anteflexed. The uterine fundus is chronically closely juxtaposed to the undersurface of the abdominal wall and might be adherent to the abdominal wall by fibrous tissue. There is a 1.3 cm intramural leiomyoma of the uterine fundus. No adnexal mass. No pelvic free fluid. URINARY BLADDER: Normal. MUSCULOSKELETAL: No suspicious bone lesions. No evidence of sacroiliitis. MR/MR abdomen wo/w con IMPRESSION: No imaging evidence of active or chronic inflammatory bowel disease. There is no enteritis or colitis. There is no mucosal hyperenhancement of the small or large bowel. No vascular congestion of the vasa recta, mesenteric fat stranding or abdominal free fluid. No lymphadenopathy.
== END 2022-06-11 09:08 | disposition home or self-care (01) ==
LOC: HO.MRI 09:07
PROVIDERS: PCP Internal Medicine; Visit Provider Internal Medicine Gastroenterology
DX: K52.9 Noninfective gastroenteritis and colitis, unspecified (principal)
CPT/HCPCS: 72197; 74183; A9585

== ENCOUNTER → 2022-07-08 14:15 | Outpatient (BNVA) | payer OTHER, SELFPAY | PROVIDERS: PCP Internal Medicine; Referring Provider Internal Medicine Gastroenterology; Visit Provider Internal Medicine Cardiovascular Disease | DX: I51.9 Heart disease, unspecified (principal) | CPT/HCPCS: 93005 ==

== ENCOUNTER 2022-08-08 07:43 | Outpatient (REF) | payer OTHER, SELFPAY ==
[2022-08-08 11:00] LABS: Hematocrit 39.9 % (37.0-47.0); Hemoglobin 12.7 g/dl (12.0-16.0); Mean Corpuscular HGB Conc 31.8 g/dl (31.0-35.0); Mean Corpuscular Hemoglobin 29.5 pg (27.0-33.0); Mean Corpuscular Volume 92.8 fL (80.0-98.0); Platelet Count 292 X10*3/uL (160-400); Red Cell Distribution Width 13.9 % (11.0-16.0); White Blood Count 8.5 X10*3/uL (4.8-10.8)
[2022-08-08 11:05] LABS: INTERNATIONAL NORM RATIO 0.9 (0.9-1.1); Prothrombin Time 10.5 SEC (10.0-13.1)
[2022-08-08 11:14] LABS: Anion Gap 13 (12-20); Blood Urea Nitrogen 12 mg/dL (9-16); Calcium 9.1 mg/dL (8.4-10.2); Carbon Dioxide 26 mmol/L (22-29); Chloride 107 mmol/L (96-108); Estimated Glomerular Filt Rate > 60; Glucose Random 91 mg/dL (60-115); Potassium 4.5 mmol/L (3.3-5.1); Sodium 141 mmol/L (135-145)
== END 2022-08-08 07:44 | disposition home or self-care (01) ==
LOC: HO.10HDL 07:43
PROVIDERS: Visit Provider Internal Medicine Cardiovascular Disease
DX: I35.0 Nonrheumatic aortic (valve) stenosis (principal)
CPT/HCPCS: 36415; 80048; 85027; 85610

== ENCOUNTER → 2022-08-25 12:41 | Outpatient (BNVA) | payer OTHER, SELFPAY | PROVIDERS: PCP Internal Medicine; Visit Provider Internal Medicine Gastroenterology ==

== ENCOUNTER → 2022-09-04 15:36 | Outpatient (BNVA) | payer OTHER, SELFPAY | PROVIDERS: PCP Internal Medicine; Visit Provider Nurse Practitioner Family | DX: I35.0 Nonrheumatic aortic (valve) stenosis (principal); I25.10 Atherosclerotic heart disease of native coronary artery without angina pectoris | CPT/HCPCS: 93005 ==

== ENCOUNTER → 2022-09-23 14:45 | Outpatient (BNV) | payer OTHER, SELFPAY | PROVIDERS: PCP Student in an Organized Health Care Education/Training Program; Visit Provider Radiology Diagnostic Radiology | DX: Z12.31 Encounter for screening mammogram for malignant neoplasm of breast (principal) | CPT/HCPCS: 77063; 77067 ==

== ENCOUNTER 2022-09-23 14:48 | Outpatient (REF) | payer OTHER, SELFPAY ==
--- NOTE | ~2022-09-23 | MM_ITS ---
EXAMINATION: MM SCREENING DIGITAL BREAST TOMOSYNTHESIS, BILATERAL CLINICAL INFORMATION: Screening. Asymptomatic. The lifetime risk of breast cancer based on the Tyrer-Cuzick Model is 12.8%. COMPARISON: Mammography: This study is compared with the prior mammograms dating back to 2019. TECHNIQUE: Digital breast tomosynthesis is performed in both the craniocaudal and mediolateral oblique views along with computer-aided detection (CAD). Synthesized 2D images are generated from the tomosynthesis. FINDINGS: The breasts are almost entirely fatty (ACR BI-RADS breast composition Category a). There are no significant masses, abnormal calcifications, or other abnormalities. MM/MM tomosynthesis screening BI IMPRESSION: No mammographic evidence of malignancy. ASSESSMENT: BI-RADS BI-RADS 1 - Negative RECOMMENDATION: Routine annual mammography screening. 1 year F/U This patient's information was entered into a reminder system with a target due date for their next mammogram.
== END 2022-09-23 14:49 | disposition home or self-care (01) ==
LOC: HO.MAMMO 14:48
PROVIDERS: PCP Student in an Organized Health Care Education/Training Program; Visit Provider Obstetrics & Gynecology Gynecology
DX: Z12.31 Encounter for screening mammogram for malignant neoplasm of breast (principal)
CPT/HCPCS: 77063; 77067

== ENCOUNTER 2022-10-17 09:07 | Outpatient (REF) | payer OTHER, SELFPAY ==
[2022-10-09 07:53] VITALS: BP 114/58; BP 156/54; BMI 40.1
[2022-10-17 11:32] LABS: Alanine Aminotransferase 29 U/L (0-31); Albumin Level 4.2 g/dL (3.5-5.0); Alkaline Phosphatase 272 U/L (39-117); Anion Gap 15 (12-20); Aspartate Amino Transferase 36 U/L (5-31); Bilirubin Total 1.2 mg/dL (0.0-1.0); Blood Urea Nitrogen 14 mg/dL (9-16); Calcium 9.8 mg/dL (8.4-10.2); Carbon Dioxide 23 mmol/L (22-29); Chloride 106 mmol/L (96-108); Cholesterol 130 mg/dL; Estimated Glomerular Filt Rate > 60; Glucose Fasting 89 mg/dL (60-99); HDL Cholesterol 45 mg/dL; LDL Cholesterol Calculated 69 mg/dl; Potassium 4.1 mmol/L (3.3-5.1); Sodium 140 mmol/L (135-145); Total Protein 7.3 g/dL (6.5-8.0); Triglycerides 82 mg/dL
[2022-10-17 11:36] LABS: TSH reflex Free T4 < 0.01 uIU/mL (0.32-4.0)
[2022-10-17 13:22] LABS: Free T4 (Free Thyroxine) 1.28 ng/dL (0.71-1.85)
== END 2022-10-17 09:08 | disposition home or self-care (01) ==
LOC: HO.LAB 09:07
PROVIDERS: PCP Internal Medicine; Visit Provider Nurse Practitioner Family
DX: E03.9 Hypothyroidism, unspecified (principal); I25.10 Atherosclerotic heart disease of native coronary artery without angina pectoris
CPT/HCPCS: 36415; 80053; 80061; 84439; 84443

== ENCOUNTER 2022-11-07 14:30 | Emergency (ER) | payer OTHER, SELFPAY ==
[2022-10-09 07:53] VITALS: BP 114/58; BP 156/54
[2022-11-04 15:21] VITALS: BP 112/60; BMI 40.1
--- NOTE | ~2022-11-07 | XR_ITS ---
EXAMINATION: XR CHEST CLINICAL INFORMATION: Chest pain and shortness of breath COMPARISON: Chest radiograph from 09/19/2020 TECHNIQUE: Frontal view of the chest was obtained. FINDINGS: Stable elevation of left hemidiaphragm. No pneumothorax. Trachea is midline. Cardiomediastinal silhouette is enlarged. Aorta demonstrates atherosclerotic calcifications. No large pleural effusion. Osseous structures are intact. Soft tissues are unremarkable. Surgical clips in the upper abdomen along the stomach. XR/XR chest 1V IMPRESSION: No acute cardiopulmonary process.
--- NOTE | ~2022-11-07 | CT_ITS ---
EXAMINATION: CT ANGIOGRAM OF THE CHEST WITH AND WITHOUT CONTRAST (CT PULMONARY ANGIOGRAM FOR PE) CLINICAL INFORMATION: Shortness of breath, chest pain, history of malignancy. COMPARISON: 05/11/2018 TECHNIQUE: Prior to contrast administration, noncontrast localization images were obtained. Subsequently, multidetector volumetric imaging was performed from the thoracic inlet to below the diaphragms following the administration of 65 mL Omnipaque 350 intravenous contrast. No contrast reaction reported. Sagittal, coronal, and MIP oblique sagittal reformatted images were obtained on the CT workstation, uploaded to PACS, and reviewed. This CT examination was performed using dose optimization techniques as appropriate, variously including the following: *Automated exposure control. *Adjustment of mA and/or kV according to patient size (this includes techniques or standardized protocols for targeted exams where dose is matched to indication/reason for exam; i.e. extremities or head). *Use of iterative reconstruction technique. Total exam dose-length product: 441 mGy-cm. FINDINGS: QUALITY OF STUDY/CONTRAST BOLUS: Satisfactory. PULMONARY ARTERIES: No pulmonary emboli. THORACIC AORTA: No aneurysm. LUNG: Left upper lobe and left basilar scarring and/or subsegmental atelectasis. There is minimal right apical scarring. The lungs are otherwise clear. PLEURA: There is diffuse left-sided pleural thickening. Left apical pleural calcifications are also seen. MEDIASTINUM: Normal heart size. No pericardial effusion. No hilar or mediastinal lymphadenopathy. No evidence of septal bowing or right heart strain. CORONARY ARTERY CALCIFICATION: None visualized on this study. CHEST WALL/AXILLA: No axillary or internal mammary lymphadenopathy. OSSEOUS STRUCTURES: No acute or suspicious osseous abnormality. UPPER ABDOMEN: Unremarkable. No reflux of contrast into the hepatic veins to suggest elevated right heart pressures. CT/CT angio chest PE protocol IMPRESSION: 1. No evidence for pulmonary embolism. 2. Left upper and lower lobe atelectasis and/or scarring associated with diffuse left-sided pleural thickening. VTE: negative
[2022-11-07 14:41] VITALS: BP 120/69; PULSE 84; RESP 18; TEMP 36.6; O2SAT 99; BMI 40.2
--- NOTE | 2022-11-07 14:42 | ECG_ITS ---
Test Reason : chest pain Blood Pressure : / mmHG Vent. Rate : 077 BPM Atrial Rate : 077 BPM P-R Int : 162 ms QRS Dur : 100 ms QT Int : 398 ms P-R-T Axes : 049 -25 023 degrees QTc Int : 450 ms Normal sinus rhythm Moderate voltage criteria for LVH, may be normal variant ( R in aVL , Jer product ) Borderline ECG When compared with ECG of 16-JUN-2018 12:37, No significant change was found Referred By: Eamon Melgar Electronically Signed By:GLENN UGALDE
--- NOTE | 2022-11-07 14:52 | ED.CHESTPAIN ---
HPI - Chest Pain General Chief Complaint: Chest Pain Stated Complaint: ? Time Seen by Provider: 11/07/22 14:35 Source: patient Mode of arrival: ambulatory Limitations: no limitations History of Present Illness HPI narrative: Patient is a 56 year old female with a history of aortic stenosis, mitral stenosis and cad s/p 1 stent in the RCA, lymphoma s/p radiation presenting with chest tightness and shortness of breath. She states that these symptoms began just prior to arrival when she was at cardiac rehab. She experienced shortness of breath while trying to ride the recumbent bike which is an activity she can normally complete without issue. Patient also reports a history of Hodgkins lymphoma and chest radiation in the past. Currently on Brilinta. Related Data Home Medications Medication Instructions Recorded Confirmed morphine 15 mg immediate release 15 mg PO BID PRN Pain 02/08/20 09/04/22 tablet pantoprazole 40 mg tablet,delayed 40 mg PO DAILY 02/08/20 09/04/22 release sertraline 100 mg tablet 100 mg PO DAILY 02/08/20 09/04/22 levothyroxine 137 mcg tablet 137 mcg PO DAILY 08/19/21 09/04/22 (Levoxyl) lorazepam 0.5 mg tablet 0.5 mg PO BID PRN anxiety 08/19/21 09/04/22 sertraline 25 mg tablet 25 mg PO DAILY 08/19/21 09/04/22 albuterol sulfate 90 mcg/actuation inhalation 04/21/22 09/04/22 aerosol inhaler nortriptyline 10 mg capsule 10 mg PO BEDTIME 07/08/22 09/04/22 ticagrelor 90 mg tablet (Brilinta) 90 mg PO BID 08/25/22 09/04/22 ubrogepant 50 mg tablet (Ubrelvy) 50 mg PO DAILY 08/25/22 09/04/22 fexofenadine 180 mg tablet 180 mg PO DAILY 09/04/22 09/04/22 (Angela Allergy) meclizine 12.5 mg tablet 12.5 mg PO DAILY PRN 09/04/22 09/04/22 Previous Rx's Medication Instructions Recorded mesalamine 250 mg capsule,extended 1,000 mg PO TID 90 days #1,080 caps 02/27/22 release (Pentasa) cane #1 ea 04/23/22 aspirin 81 mg tablet,delayed 81 mg PO DAILY #30 tabs 07/09/22 release (Ecotrin Low Strength) atorvastatin 40 mg tablet 40 mg PO DAILY #30 tabs 07/09/22 Allergies Allergy/AdvReac Type Severity Reaction Status Date / Time oxycodone [From PERCOCET] Allergy Intermediate HIVES Verified 09/04/22 16:03 Sulfa (Sulfonamide Allergy Intermediate HIVES Verified 09/04/22 16:03 Antibiotics) [SULFA (SULFONAMIDE ANTIBIOTICS)] diatrizoate meglumine Allergy Unknown red rash Verified 09/04/22 16:03 [Gastrografin] Review of Systems Review of Systems: Constitutional : No Weight loss, No Fever, No Chills, No Fatigue, No Malaise ENT/Mouth : No sore throat, No Rhinorrhea Eyes: No Eye Pain, No Swelling, No Redness Cardiovascular : + Chest Pain, SOB, + Dyspnea on Exertion, No Orthopnea, No Edema, No Palpitations Respiratory : No Cough, No Sputum, No Wheezing Gastrointestinal : No Nausea, No Vomiting, No Diarrhea, No Constipation, No abdominal Pain, No Hematochezia, No Melena Genitourinary : No Dysuria, No Urinary Frequency, No Hematuria, Musculoskeletal : No joint pain, No Myalgias, No Joint Swelling Skin : No Skin Lesions, No rash Neuro : No Weakness, No Numbness, No Dizziness, No Headache Psych : No Anxiety/Panic, No Depression Heme/Lymph: No Bruising, No Bleeding,No Lymphadenopathy Endocrine : No Polyuria, No Polydipsia All other systems reviewed and are negative Yes all other systems are reviewed and are negative [facility] Past Medical History Attestation statement: The following information was validated with the patient. Source: old records reviewed and nursing notes reviewed Medical History (Updated 11/07/22 @ 16:20 by RAINA Heath) Anxiety and depression Asthma CAD (coronary artery disease) GERD (gastroesophageal reflux disease) Hepatic steatosis Herpes History of Hodgkin's lymphoma History of shingles Hyperlipidemia Hypothyroid Obesity Radiation-induced heart disease Tubular adenoma of colon Surgical History (Updated 09/05/22 @ 11:41 by Gloria Mahmood PA-C) History of ankle surgery History of arthroscopy of right shoulder History of section History of cholecystectomy History of colonoscopy History of esophagogastroduodenoscopy (EGD) History of heart artery stent (~2022) History of repair of hiatal hernia (~2018) History of sleeve gastrectomy (~2018) History of thoracentesis (~2019) Family History Family History Mother Colon cancer Father Hypertension Prostate cancer Son Diabetes Daughter Autism Social History Social History Patient Tobacco Use Status: Never used Tobacco Advance Directives: No Advance Directives Information Provided: Yes 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: employed 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 Oriented X3.? No acute distress.? Head: Normocephalic, atraumatic, no step-offs or deformities Eyes: Pupils equal, round and reactive to light.? CVS: Normal heart rate and rhythm.? Pulses normal.? Respiratory: No respiratory distress.? Breath sounds normal.? Abdomen: Soft and nontender.? Skin: Skin warm and dry.? Normal skin color.? Normal skin turgor.? Extremities: No lower extremity edema.? No calf ttp. 5/5 strength to bilateral upper and lower extremities Back: No midline tenderness, no C-spine tenderness, full range of motion, no CVA tenderness bilaterally Neuro: Oriented X 3.? No motor deficit.? No sensory deficit. CN 2-12 intact Course Reevaluation(s) Reevaluation #1: Insert labs, CTA pending. Signed out to night provider Joshua KOEHLER Time: 16:19 Medical Decision Making Medical Decision Making MDM Narrative: 15:02 56 year old female presenting with chest tightness and shortness of breath. History of malignancy and chest wall radiation. Exam benign. This is likely pulmonary embolism vs ACS given the history of cardiac problems and chest wall radiation. Unlikely GERD, pancreatitis, esophagitis as the pain came on with exercise and patient does not have a history of similar events. Unlikely aortic dissection as blood pressure is stable and pain is not radiating to the back. Unlikely muscle sprain/strain or costochondritis as pain is not reproducible with palpation. No sign of CHF, endo/yumiko/myocarditis. Plan: imaging, labs Differential Diagnosis Differential Diagnoses: The differential diagnosis associated with the presentation includes This is likely pulmonary embolism vs ACS given the history of cardiac problems and chest wall radiation. Unlikely GERD, pancreatitis, esophagitis as the pain came on with exercise and patient does not have a history of similar events. Unlikely aortic dissection as blood pressure is stable and pain is not radiating to the back. No sign of CHF, endo/yumiko/myocarditis. Admission/Observation Consideration of admission/observation: Escalation of care including admission/observation considered Not indicated. Lab Data MDM Lab Attestation statement: I reviewed the patient's lab results. Core Measures AMI core measures followed: Yes Measure exclusions: not indicated Critical Care Time Critical Care Time Critical Care Time: No Discharge Plan Discharge Clinical Impression: Shortness of breath Prescriptions: No Action Pentasa 250 mg capsule, extended release 1,000 mg PO TID 90 Days Qty: 1080 2RF (DME) cane Device See Rx Instructions .Route Qty: 1 0RF Rx Instructions: As directed sertraline 100 mg tablet 100 mg PO DAILY pantoprazole 40 mg tablet,delayed release (DR/EC) 40 mg PO DAILY morphine 15 mg tablet 15 mg PO BID PRN (Reason: Pain) meclizine 12.5 mg tablet 12.5 mg PO DAILY PRN levothyroxine [Levoxyl] 137 mcg tablet 137 mcg PO DAILY sertraline 25 mg tablet 25 mg PO DAILY lorazepam 0.5 mg tablet 0.5 mg PO BID PRN (Reason: anxiety) Ubrelvy 50 mg tablet 50 mg PO DAILY Brilinta 90 mg tablet 90 mg PO BID nortriptyline 10 mg capsule 10 mg PO BEDTIME aspirin [Ecotrin Low Strength] 81 mg tablet,delayed release (DR/EC) 81 mg PO DAILY Qty: 30 5RF atorvastatin 40 mg tablet 40 mg PO DAILY Qty: 30 5RF albuterol sulfate 90 mcg/actuation HFA aerosol inhaler inhalation fexofenadine [Angela Allergy] 180 mg tablet 180 mg PO DAILY
[2022-11-07 16:00] VITALS: BP 148/54; PULSE 72; RESP 15; TEMP 36.5; O2SAT 99
[2022-11-07 19:09] VITALS: BP 126/51; PULSE 79; RESP 18; O2SAT 100
--- NOTE | 2022-11-07 19:14 | PC.NURSE ---
pt aox4,. difficult stick, labs have been obtained. 22g IV in left arm, 20g needed for CT angio. working on this with nursing staff.
[2022-11-07 19:18] LABS: MANUAL DIFF FLAG NO
[2022-11-07 19:28] LABS: Basophils Percent Auto 0.4 % (0-2); Eosinophils Absolute Auto 0.3 X10*3/uL (0.0-0.4); Eosinophils Percent Auto 2.9 % (0-4); Hematocrit 39.3 % (37.0-47.0); Hemoglobin 13.1 g/dl (12.0-16.0); Imm Gran Abs Auto 0.03 X10*3/uL (0.00-0.03); Imm Gran Pct Auto 0.3 % (0.0-0.4); Lymphocytes Absolute Auto 2.6 X10*3/uL (1.2-4.9); Lymphocytes Percent Auto 25.1 % (20-40); Mean Corpuscular HGB Conc 33.3 g/dl (31.0-35.0); Mean Corpuscular Hemoglobin 29.3 pg (27.0-33.0); Mean Corpuscular Volume 87.9 fL (80.0-98.0); Mean Platelet Volume 10.9 fL (9.4-12.3); Monocytes Percent Auto 9.4 % (2-11); Neutrophils Absolute Auto 6.5 x10*3/uL (2.0-8.3); Neutrophils Percent Auto 61.9 % (45-73); Platelet Count 341 X10*3/uL (160-400); Red Blood Count 4.47 X10*6/uL (4.20-5.50); Red Cell Distribution Width 13.5 % (11.0-16.0); White Blood Count 10.5 X10*3/uL (4.8-10.8)
[2022-11-07 19:31] LABS: Prothrombin Time 11.6 SEC (11.1-13.3)
[2022-11-07 19:47] LABS: Alanine Aminotransferase 28 U/L (0-31); Albumin Level 4.4 g/dL (3.5-5.0); Alkaline Phosphatase 264 U/L (39-117); Anion Gap 17 (12-20); Aspartate Amino Transferase 34 U/L (5-31); Bilirubin Total 0.9 mg/dL (0.0-1.0); Blood Urea Nitrogen 9 mg/dL (9-16); Carbon Dioxide 22 mmol/L (22-29); Chloride 106 mmol/L (96-108); Creatinine Clr Calc Pharmacy 101.5; Estimated Glomerular Filt Rate > 60; Glucose Random 76 mg/dL (60-115); Magnesium 2.5 mg/dL (1.6-2.6); Potassium 3.6 mmol/L (3.3-5.1); Sodium 141 mmol/L (135-145); Total Protein 7.6 g/dL (6.5-8.0)
[2022-11-07 19:49] LABS: B Type Natriuretic Peptide 32 pg/mL (<100)
[2022-11-07 20:17] LABS: Troponin-I High Sensitivity 3.5 ng/L (<3.5-17.0)
[2022-11-07 21:00] LABS: D Dimer High Sensitivity < 150 NG/ML
--- NOTE | 2022-11-07 21:00 | PC.NURSE ---
Ct scan dept reports u/s IV line placed by mlp blew during contrast infusion. MLP aware and will attempt to place an IV line. Pt aware.
[2022-11-07 22:06] VITALS: BP 114/53; PULSE 71; RESP 17; TEMP 36.7; O2SAT 98
[2022-11-07] MEDS: iohexoL 350 MG/ML 100 ML INFUS..BTL 65 ML IV (23:04)
[2022-11-08 00:14] VITALS: BP 116/41; PULSE 71; RESP 16; TEMP 36.8; O2SAT 95
== END 2022-11-08 00:26 | disposition home or self-care (01) ==
PROVIDERS: Physician Assistant; Emergency Provider Emergency Medicine; PCP Internal Medicine
DX: R07.89 Other chest pain (principal); I25.10 Atherosclerotic heart disease of native coronary artery without angina pectoris; R06.02 Shortness of breath; Z79.899 Other long term (current) drug therapy
CPT/HCPCS: 36415; 71045; 71275; 80053; 83735; 83880; 84484; 85025; 85379; 85610; 93005; 99284; 99285; Q9967

== ENCOUNTER 2022-11-17 10:05 | Outpatient (AMB) | payer OTHER, SELFPAY ==
[2022-10-09 07:53] VITALS: BP 114/58; BP 156/54
[2022-11-04 15:21] VITALS: BP 112/60; BMI 40.1
--- NOTE | 2022-11-17 10:09 | MHC.OFFVIS ---
Intake Vital Signs 11/17/22 10:10 Height 5 ft 2 in Weight 217 lb BMI 39.7 BP 130/72 Blood Pressure Location Rt brachial Position Sitting Pulse 80 Pulse Source Pulse Oximeter Pulse Oximetry (%) 100 Oxygen Delivery Method Room Air Intake Visit Reasons: Dyspnea [place] Debeader Required: No Retirement Plan Counselor: Retirement Plan Counselor offered & declined Accompanied by: Self / Same As Patient Allergies oxycodone [From PERCOCET] Allergy (Intermediate, Verified 11/17/22 10:15) HIVES Sulfa (Sulfonamide Antibiotics) [SULFA (SULFONAMIDE ANTIBIOTICS)] Allergy (Intermediate, Verified 11/17/22 10:15) HIVES diatrizoate meglumine [Gastrografin] Allergy (Unknown, Verified 11/17/22 10:15) red rash Medication List - Last Reconciled 11/17/22 by Jenise Cruz LPN albuterol sulfate 90 mcg/actuation inhalation aspirin (Ecotrin Low Strength) 81 mg PO DAILY atorvastatin 40 mg PO DAILY cane As directed fexofenadine (Soco Allergy) 180 mg PO DAILY levothyroxine (Levoxyl) 137 mcg PO DAILY lorazepam 0.5 mg PO BID PRN meclizine 12.5 mg PO DAILY PRN mesalamine ER (Pentasa) 1,000 mg (4 x 250 mg) PO TID 90 days morphine 15 mg PO BID PRN nortriptyline 10 mg PO BEDTIME pantoprazole 40 mg PO DAILY sertraline 100 mg PO DAILY sertraline 25 mg PO DAILY ticagrelor (Brilinta) 90 mg PO BID ubrogepant (Ubrelvy) 50 mg PO DAILY HPI Dyspnea HPI Details Rose Marie is a very pleasant 56 year old female, never smoker, with underlying history of asthma, moderate aortic anf mitral valve stenosis, h/o hodgkin's lymphoma in her 20s s/p mantle radiation, gastric sleeve 2018 lost a total of 65lbs. She also reports undergoing two thoracentesis, then pleurodesis, all on the left, in [address] Flowers for recurrent pleural effusions. All testing was reportedly negative for malignancies. She was referred for pulmonary evaluation for worsening dyspnea on exertion over the last three years with intermittent cough, chest tightness, and wheezing. She reports history of adult onset asthma and uses albuterol infrequently. She has trialed pulmicort in the past with suboptimal control. She reports significant seasonal allergies with no recent allergy testing. Currently uses soco with moderate relief. 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 She denies any family history of lung conditions. She has been evaluated by cardiology and will be undergoing a nuclear stress test in the near future. [facility] Medical History (Updated 11/28/22 @ 21:46 by Nicki Desir NP) History of shingles CAD (coronary artery disease) Hyperlipidemia Obesity Anxiety and depression Tubular adenoma of colon History of Hodgkin's lymphoma Radiation-induced heart disease Asthma Hypothyroid Hepatic steatosis GERD (gastroesophageal reflux disease) Herpes Surgical History (Updated 09/05/22 @ 11:41 by Gloria Mahmood PA-C) History of repair of hiatal hernia (~2017) History of thoracentesis (~2018) History of ankle surgery History of section History of colonoscopy History of heart artery stent (~2022) History of arthroscopy of right shoulder History of sleeve gastrectomy (~2017) History of esophagogastroduodenoscopy (EGD) History of cholecystectomy Family History Mother Colon cancer Father Hypertension Prostate cancer Son Diabetes Daughter Autism Social History (Updated 11/17/22 @ 10:17 by Jenise Cruz LPN) Alcohol intake: current Alcohol intake frequency: holidays/special occasions only Patient Tobacco Use Status: Never used Tobacco 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: employed 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 Review of Systems Const Denies chills, Denies excessive sweating, Denies fever(s), Denies headache(s) and Denies night sweats Eyes Denies dry eyes and Denies irritation ENT Reports Normal hearing present, Denies headache(s), Denies nasal congestion and Denies sore throat Card Denies chest pain, Denies chest pain at rest, Denies chest pain with activity, Reports dyspnea on exertion, Denies orthopnea and Denies paroxysmal nocturnal dyspnea Resp Reports cough, Denies hemoptysis, Denies excessive phlegm production, Denies pain on inspiration, Denies pain with cough, Reports dyspnea on exertion, Denies stridor and Reports wheezing Musc Denies myalgias Neuro Reports Normal hearing present and Denies headache(s) Endo Denies excessive sweating Aller/Immun Reports seasonal rhinorrhea and Reports wheezing Physical Exam Vital Signs: Last Vital Signs Pulse 80 11/17/22 10:10 BP 130/72 11/17/22 10:10 Pulse Ox 100 11/17/22 10:10 Oxygen Delivery Method Room Air 11/17/22 10:10 BMI result Body Mass Index 39.7 Const General: cooperative, healthy appearing, comfortable, no acute distress, well developed and alert Nutritional Appearance: obese Orientation/consciousness: patient oriented x3 Limitations: no limitations HEENT Head: Yes normal to inspection, Yes normocephalic and Yes atraumatic Ears: hearing grossly normal bilaterally and external ears normal Eyes General: appearance normal, both eyes and all related structures Eyelids: Yes eyelids normal Sclerae: sclerae normal EOM: EOMs intact bilaterally Neck Neck: Yes normal visual inspection and Yes no lymphadenopathy Lymphatic: no lymphadenopathy noted Chest Chest palpation & inspection: normal inspection of the chest Resp Effort & Inspection: normal respiratory effort, able to speak in complete sentences, no audible wheezes, no cough, no stridor, not tachypneic, no tripod positioning and no use of accessory muscles Auscultation: clear to auscultation bilaterally Cardio Jugular venous distension: no JVD Rate: regular rate Rhythm: regular rhythm Skin Other: warm, dry General skin exam: no rashes or lesions noted Neuro General: patient oriented x3 Cranial nerves: Yes Normal hearing present Cognition (Neuro): normal cognition Gait exam (Neuro): Normal gait present Extrem General: Yes normal to inspection, Yes capillary refill normal, Yes no clubbing, cyanosis or edema and Yes no pedal edema Psych Appearance: grossly normal and well kempt Speech and movement: Normal speech and movement present and Clear speech present Affect: normal affect Attitude: cooperative Thought process: Normal thought process present Thought content: Normal thought content present Insight: Good insight present (Psych) Judgement: Good judgement present (Psych) Results Reviewed Results Reviewed: [address] [address] [address] Scan Report Signed Patient: Rose Marie Ross MR#: [id number] : 1965 Acct:[id number] Age/Sex: 56 / F ADM Date: 11/07/22 Loc: HO.ED Attending Dr: Ordering Physician: Emaon Melgar Date of Service: 11/07/22 Procedure(s): CT angio chest PE protocol Accession Number(s): [id number] cc: Eamon Melgar; ADRIAN CORDERO MD~ EXAMINATION: CT ANGIOGRAM OF THE CHEST WITH AND WITHOUT CONTRAST (CT PULMONARY ANGIOGRAM FOR PE) CLINICAL INFORMATION: Shortness of breath, chest pain, history of malignancy. COMPARISON: 05/11/2018 TECHNIQUE: Prior to contrast administration, noncontrast localization images were obtained. Subsequently, multidetector volumetric imaging was performed from the thoracic inlet to below the diaphragms following the administration of 65 mL Omnipaque 350 intravenous contrast. No contrast reaction reported. Sagittal, coronal, and MIP oblique sagittal reformatted images were obtained on the CT workstation, uploaded to PACS, and reviewed. This CT examination was performed using dose optimization techniques as appropriate, variously including the following: *Automated exposure control. *Adjustment of mA and/or kV according to patient size (this includes techniques or standardized protocols for targeted exams where dose is matched to indication/reason for exam; i.e. extremities or head). *Use of iterative reconstruction technique. Total exam dose-length product: 441 mGy-cm. FINDINGS: QUALITY OF STUDY/CONTRAST BOLUS: Satisfactory. PULMONARY ARTERIES: No pulmonary emboli. THORACIC AORTA: No aneurysm. LUNG: Left upper lobe and left basilar scarring and/or subsegmental atelectasis. There is minimal right apical scarring. The lungs are otherwise clear. PLEURA: There is diffuse left-sided pleural thickening. Left apical pleural calcifications are also seen. MEDIASTINUM: Normal heart size. No pericardial effusion. No hilar or mediastinal lymphadenopathy. No evidence of septal bowing or right heart strain. CORONARY ARTERY CALCIFICATION: None visualized on this study. CHEST WALL/AXILLA: No axillary or internal mammary lymphadenopathy. OSSEOUS STRUCTURES: No acute or suspicious osseous abnormality. UPPER ABDOMEN: Unremarkable. No reflux of contrast into the hepatic veins to suggest elevated right heart pressures. CT/CT angio chest PE protocol IMPRESSION: 1. No evidence for pulmonary embolism. 2. Left upper and lower lobe atelectasis and/or scarring associated with diffuse left-sided pleural thickening. VTE: negative Assessment & Plan Assessment & Plan (1) Asthma: Code(s): J45.909 - Unspecified asthma, uncomplicated (2) History of mantle field radiation therapy: Code(s): Z92.3 - Personal history of irradiation (3) Pleural thickening: Code(s): J92.9 - Pleural plaque without asbestos (4) History of Hodgkin's lymphoma: Comment: (treated with radiation in 1992 - in remission) Code(s): Z85.71 - Personal history of Hodgkin lymphoma Plan Rose Marie's symptoms are likely related to asthma as well as prior history of radiation. Will send for PFT and RAST. Will empirically treat with Breo. Reviewed importance of oral hygiene. Will review previous imaging and compare, as most recent chest CT revealed left upper and lower lobe atelectasis and/or scarring associated with diffuse left-sided pleural thickening. This is ikely from prior radiation versus prior pleurodesis, but malignancy can not be ruled out. Will follow up to review results. All questions were answered and patient is in agreement of plan. Orders: Orders Rast Allergen 11/17/22 Z91.09 - Other allergy status, other than to drugs and biological substances Medications: New fluticasone furoate-vilanterol 100-25 mcg/dose (Breo Ellipta) 1 inh inhalation DAILY 60 ea 3RF Coding Level of Care Code New Pt Level 4 (84676) Diagnoses Asthma J45.909 History of mantle field radiation therapy Z92.3 Pleural thickening J92.9 History of Hodgkin's lymphoma Z85.71
[2022-11-17 10:10] VITALS: BP 130/72; PULSE 80; O2SAT 100; BMI 39.7
== END 2022-11-17 11:02 | disposition home or self-care (01) ==
LOC: HO.HPSW 10:05
PROVIDERS: PCP Internal Medicine; Visit Provider Nurse Practitioner Family
DX: J45.909 Unspecified asthma, uncomplicated (principal); Z92.3 Personal history of irradiation; J92.9 Pleural plaque without asbestos; Z85.71 Personal history of Hodgkin lymphoma
CPT/HCPCS: 99204

== ENCOUNTER 2022-11-17 11:19 | Outpatient (REF) | payer OTHER, SELFPAY ==
[2022-10-09 07:53] VITALS: BP 114/58; BP 156/54
[2022-11-04 15:21] VITALS: BP 112/60; BMI 40.1
== END 2022-11-17 11:20 | disposition home or self-care (01) ==
LOC: HO.WFDLDS 11:19
PROVIDERS: Visit Provider Nurse Practitioner Family
DX: Z91.09 Other allergy status, other than to drugs and biological substances (principal)
CPT/HCPCS: 36415; 82785; 86003

== ENCOUNTER 2022-12-01 15:34 | Outpatient (REF) | payer OTHER, SELFPAY ==
[2022-10-09 07:53] VITALS: BP 114/58; BP 156/54
--- NOTE | ~2022-12-01 | XR_ITS ---
EXAMINATION: XR CHEST CLINICAL INFORMATION: Chest pain. History of pleural effusion, status post pleurodesis. COMPARISON: 09/19/2020, 10/25/2018 TECHNIQUE: 2 views of the chest were obtained. FINDINGS: Heart and mediastinum within normal limits. Aortic calcifications seen. Right lung is clear. No vascular congestion or consolidations. There is asymmetric soft tissue density in the upper medial left hemithorax and costophrenic angle blunting, seen on previous studies. Vague opacities in the left upper and left lower hemithorax likely reflect asymmetric pleural thickening seen on recent chest CT. Pulmonary parenchymal opacities not excluded but thought less likely. XR/XR chest 2V IMPRESSION: Redemonstration of asymmetric left hemithorax pleural nodular pleural thickening. Patient with history of left pleurodesis, findings likely secondary to that procedure.
[2022-12-01 15:17] VITALS: BP 100/50; BMI 40.1
[2022-12-01 16:51] LABS: MANUAL DIFF FLAG NO
[2022-12-01 17:00] LABS: Basophils Absolute Auto 0.1 X10*3/uL (0.0-0.2); Basophils Percent Auto 0.6 % (0-2); Eosinophils Absolute Auto 0.2 X10*3/uL (0.0-0.4); Eosinophils Percent Auto 2.4 % (0-4); Hematocrit 38.9 % (37.0-47.0); Hemoglobin 12.7 g/dl (12.0-16.0); Imm Gran Abs Auto 0.02 X10*3/uL (0.00-0.03); Imm Gran Pct Auto 0.2 % (0.0-0.4); Lymphocytes Absolute Auto 2.4 X10*3/uL (1.2-4.9); Lymphocytes Percent Auto 24.5 % (20-40); Mean Corpuscular HGB Conc 32.6 g/dl (31.0-35.0); Mean Corpuscular Hemoglobin 28.7 pg (27.0-33.0); Mean Corpuscular Volume 87.8 fL (80.0-98.0); Mean Platelet Volume 10.3 fL (9.4-12.3); Monocytes Absolute Auto 1.3 X10*3/uL (0.1-1.2); Monocytes Percent Auto 12.9 % (2-11); Neutrophils Absolute Auto 5.9 x10*3/uL (2.0-8.3); Neutrophils Percent Auto 59.4 % (45-73); Platelet Count 344 X10*3/uL (160-400); Red Blood Count 4.43 X10*6/uL (4.20-5.50); Red Cell Distribution Width 14.1 % (11.0-16.0); White Blood Count 9.9 X10*3/uL (4.8-10.8)
[2022-12-01 17:17] LABS: B Type Natriuretic Peptide 31 pg/mL (<100)
[2022-12-01 17:37] LABS: Troponin-I High Sensitivity 3.9 ng/L (<3.5-17.0)
[2022-12-01 17:51] LABS: TSH reflex Free T4 0.02 uIU/mL (0.32-4.0)
[2022-12-01 17:52] LABS: Erythrocyte Sedimentation Rate 21 MM/HR (0-20)
[2022-12-01 18:39] LABS: Free T4 (Free Thyroxine) 1.29 ng/dL (0.71-1.85)
[2022-12-03 16:48] LABS: CRP High Sensitivity 1.6 mg/L
== END 2022-12-01 15:35 | disposition home or self-care (01) ==
LOC: HO.LAB 15:34
PROVIDERS: Absent Provider Internal Medicine Gastroenterology; PCP Internal Medicine; Visit Provider Nurse Practitioner Family
DX: R07.9 Chest pain, unspecified (principal); R06.02 Shortness of breath; Z79.899 Other long term (current) drug therapy; Z98.890 Other specified postprocedural states; Z95.5 Presence of coronary angioplasty implant and graft
CPT/HCPCS: 36415; 71046; 83880; 84439; 84443; 84484; 85025; 85652; 86141; 93005

== ENCOUNTER 2022-12-01 15:34 | Outpatient (AMB) | payer OTHER, SELFPAY ==
[2022-10-09 07:53] VITALS: BP 114/58; BP 156/54
[2022-11-04 15:21] VITALS: BP 112/60; BMI 40.1
[2022-12-01 15:36] VITALS: BP 120/72; PULSE 90; BMI 39.8
--- NOTE | 2022-12-01 15:36 | A.OFFVIS_ITS ---
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 Allergies oxycodone [From PERCOCET] Allergy (Intermediate, Verified 12/01/22 15:46) HIVES Sulfa (Sulfonamide Antibiotics) [SULFA (SULFONAMIDE ANTIBIOTICS)] Allergy (Intermediate, Verified 12/01/22 15:46) HIVES diatrizoate meglumine [Gastrografin] Allergy (Unknown, Verified 12/01/22 15:46) red rash Medication List - Last Reconciled 12/01/22 by NAV Romero albuterol sulfate 90 mcg/actuation inhalation aspirin (Ecotrin Low Strength) 81 mg PO DAILY atorvastatin 40 mg PO DAILY cane As directed cholecalciferol (vitamin D3) 50 mcg PO DAILY fexofenadine (Angela Allergy) 180 mg PO DAILY fluticasone furoate-vilanterol 100-25 mcg/dose (Breo Ellipta) 1 inh inhalation DAILY levothyroxine (Levoxyl) 137 mcg PO DAILY lorazepam 0.5 mg PO BID PRN meclizine 12.5 mg PO DAILY PRN mesalamine ER (Pentasa) 1,000 mg (4 x 250 mg) PO TID 90 days morphine 15 mg PO BID PRN nortriptyline 10 mg PO BEDTIME pantoprazole 40 mg PO DAILY sertraline 100 mg PO DAILY sertraline 25 mg PO DAILY ticagrelor (Brilinta) 90 mg PO BID ubrogepant (Ubrelvy) 50 mg PO DAILY HPI 3 mth f/up HPI Details Rose Marie is a 56-year-old female with past medical history of Hodgkin's lymphoma and mantle radiation who recently had an echocardiogram to evaluate shortness of breath showing mild to moderate aortic stenosis and cvrh-[id number]-[id number] mitral valve stenosis. She underwent cardiac catheterization showing significant proximal RCA stenosis and a KAMRYN was placed. On follow-up visit she reported feeling well with no symptoms. She was started in cardiac rehab. Today she reports that around 11/07/22 she started developing discomfort in her left upper chest region. She did tell them at cardiac rehab and was sent to the ER for evaluation showing no acute findings. She says since then the pain has become more persistent. She says it is worse if she lays on her back. She also is reporting shortness of breath with activity which is new for her. She has a pulse oximeter at home and tells me that she has always ranged in the 90s. No cough, PND, edema. No heart palpitations, dizziness, presyncope, syncope. Taking meds as directed. She is not interrupted her aspirin and Brilinta. She is currently out a work as she has been feeling so poorly. is present. [facility] Medical History History of shingles CAD (coronary artery disease) Hyperlipidemia Obesity Anxiety and depression Tubular adenoma of colon History of Hodgkin's lymphoma Radiation-induced heart disease Asthma Hypothyroid Hepatic steatosis GERD (gastroesophageal reflux disease) Herpes Surgical History History of repair of hiatal hernia (~2017) History of thoracentesis (~2018) History of ankle surgery History of section History of colonoscopy History of heart artery stent (~2022) History of arthroscopy of right shoulder History of sleeve gastrectomy (~2017) History of esophagogastroduodenoscopy (EGD) History of cholecystectomy Family History Mother Colon cancer Father Hypertension Prostate cancer Son Diabetes Daughter Autism Social History Alcohol intake: current Alcohol intake frequency: holidays/special occasions only Patient Tobacco Use Status: Never used Tobacco 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: employed 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 Review of Systems Const All systems reviewed & are unremarkable except as noted in HPI and below ENT Denies dizziness Card Reports chest pain, Reports chest pain at rest, Reports chest pain with a ctivity, Denies rapid heart rate, Denies pedal edema, Denies edema, Denies leg edema, Denies lightheadedness, Denies palpitations, Reports dyspnea, Reports dyspnea on exertion and Denies orthopnea Resp Denies cough, Reports dyspnea and Reports dyspnea on exertion GI Denies hematochezia and Denies change in stool character Musc Denies abnormal gait, Denies limited range of motion, Denies muscle cramps, Denies muscle weakness, Denies numbness, Denies radiating pain into limb, Denies stiffness and Denies tingling Neuro Denies abnormal gait, Denies dizziness, Denies numbness and Denies tingling Endo Denies palpitations Physical Exam Vital Signs: Last Vital Signs Pulse 90 12/01/22 15:36 BP 120/72 12/01/22 15:36 BMI result Body Mass Index 39.8 Const General: cooperative, comfortable and no acute distress Orientation/consciousness: patient oriented x3 Neck Neck: Yes normal visual inspection Resp Effort & Inspection: normal respiratory effort Auscultation: clear to auscultation bilaterally, no crackles, no rales, no rhonchi and no wheezes Cardio Jugular venous distension: no JVD Rate: regular rate Rhythm: regular rhythm Heart sounds: S1 normal heart sound present, S2 normal heart sound present, no murmurs and no rubs Neuro General: patient oriented x3 Extrem General: Yes normal to inspection and No no pedal edema Psych Appearance: grossly normal Mental Status: mental status grossly normal Speech and movement: Normal speech and movement present Office Procedures EKG Details: Today, read by me, normal sinus rhythm, left axis deviation, LVH with repolarization abnormality, no significant changes from prior EKG 11/07/2022, rate 90, QTC 423 millisecond [id number], Complete Assessment & Plan Assessment & Plan (1) Chest discomfort: Code(s): R07.89 - Other chest pain Plan: Report of chest discomfort in her left upper chest radiating towards her shoulder worse when laying down. Started 3 weeks ago and has increased in frequency and severity since that time still remains intermittent. Also symptoms of shortness of breath with activity which she says is new for her. She did have some shortness of breath prior to her cardiac catheterization which then resolved. She has been on Brilinta for 3 months now and did not have shortness of breath initially from it. Her chest discomfort symptoms sounds most like pericarditis however EKG done today does not show any ST abnormalities that match that diagnosis. Pericarditis does not explain her shortness of breath. She has or had a recent evaluation for PE including negative D-dimer and CTA of the chest on 11/07/22. She does not appear fluid overloaded on exam. Her EKG does not look ischemic. Will check labs today including troponin, CBC, sed rate, CRP, BNP. She is requesting chest x-ray which is reasonable. Will obtain limited echocardiogram this week to assess EF and pericardium. Considering stopping Brilinta in changing over to Plavix if all testing is negative. Also considering cardiac catheterization due to recurrent shortness of breath. Will plan to review test results once available then further decide on treatment plan. Patient is agreeable to this. Emergency care if needed for worsening of symptoms. Cardiology follow-up to be determined (2) S/P cardiac catheterization: Comment: 08/21/2022. Left main 20% stenosis, proximal RCA 80% stenosis angioplasty and KAMRYN placed, no significant gradient on pullback across aortic valve, wedge 10, PA 27/9, no obvious mitral stenosis Code(s): Z98.890 - Other specified postprocedural states Plan: Cardiac catheterization done on 08/21/2022 as above, proximal RCA 80% stenosis. Angioplasty and KAMRYN placed. PA pressure is normal. She was placed on aspirin indefinitely, Brilinta 90 mg b.i.d. uninterrupted for at least 1 year. Atorvastatin 40 mg daily. She is in cardiac rehab. On last visit she did have some shortness of breath which was thought to be related to Brilinta however she says it then did improve however now it is worse again. She will be undergoing testing as above. No med changes made (3) Shortness of breath: Code(s): R06.02 - Shortness of breath Plan: As above (4) History of heart artery stent: Onset Date: ~2022 Comment: (Stent to RCA [80% occluded] - Dr. Mclaughlin, [facility] [place] - 08/15/22) Code(s): Z95.5 - Presence of coronary angioplasty implant and graft (5) Mitral stenosis: Comment: (Echo 05/19/22 showed [id number] aortic and mitral valve stenosis, with calcific mitral annular changes) -non rheumatic Code(s): I05.0 - Rheumatic mitral stenosis Qualifiers: Cardiac valve disease etiology: nonrheumatic Qualified Code(s): I34.2 - Nonrheumatic mitral (valve) stenosis Plan: Recent echocardiogram showing mild to moderate mitral valve stenosis. Cardiac catheterization performed showing no obvious mitral stenosis. (6) Aortic stenosis: Comment: (Echo 05/19/22 showed [id number] aortic and mitral valve stenosis, with calcific mitral annular changes) Code(s): I35.0 - Nonrheumatic aortic (valve) stenosis Qualifiers: Cardiac valve disease etiology: nonrheumatic Qualified Code(s): I35.0 - Nonrheumatic aortic (valve) stenosis Plan: Recent echocardiogram showing mild to moderate aortic stenosis. Cardiac catheterization performed showing no significant gradient across the aortic valve. Will continue to follow valve disease with periodically echoes (7) Radiation-induced heart disease: Comment: (s/p chest radiation for Hodgkins in 1992; s/p stent to RCA - 08/15/22) Code(s): I51.9 - Heart disease, unspecified Plan: History of chest radiation 1992 for Hodgkin's lymphoma (8) Hyperlipidemia: Code(s): E78.5 - Hyperlipidemia, unspecified Qualifiers: Hyperlipidemia type: unspecified Qualified Code(s): E78.5 - Hyperlipidemia, unspecified Plan: [place] LDL goal less than 70 in patient with CAD. Recently started on atorvastatin 40 mg daily. Plan for fasting lipid profile in near future (9) CAD (coronary artery disease): Code(s): I25.10 - Atherosclerotic heart disease of [place] coronary artery without angina pectoris Qualifiers: Coronary Disease-Associated Artery/Lesion type: [place] artery [place] vs. transplanted heart: [place] heart Associated angina: with unspecified form of angina Qualified Code(s): I25.119 - Atherosclerotic heart disease of [place] coronary artery with unspecified angina pectoris (10) Abnormal TSH: Code(s): R79.89 - Other specified abnormal findings of blood chemistry Plan: Noted on last visit. Will be adding TSH, free T4 to her labs today to limit blood draws Orders: Orders CRP High Sensitivity Today R07.9 - Chest pain, unspecified Complete Blood Count Auto Diff Today R07.9 - Chest pain, unspecified B Type Natriuretic Peptide Today R07.9 - Chest pain, unspecified TSH reflex Free T4 Today R06.02 - Shortness of breath XR chest 2V Today R06.02 - Shortness of breath, R07.9 - Chest pain, unspecified D Dimer High Sensitivity Today R07.89 - Other chest pain Erythrocyte Sedimentation Rate Today R07.9 - Chest pain, unspecified Troponin-I High Sensitivity Today R07.9 - Chest pain, unspecified CA echo limited 1 Day R06.02 - Shortness of breath, R07.9 - Chest pain, unspecified Coding Level of Care Code Est Pt Level 4 (51070) Diagnoses Chest discomfort R07.89 S/P cardiac catheterization Z98.890 Shortness of breath R06.02 History of heart artery stent Z95.5 Nonrheumatic mitral valve stenosis I34.2 Cardiac valve disease etiology: nonrheumatic Nonrheumatic aortic valve stenosis I35.0 Cardiac valve disease etiology: nonrheumatic Radiation-induced heart disease I51.9 Hyperlipidemia, unspecified hyperlipidemia type E78.5 Hyperlipidemia type: unspecified Coronary artery disease involving [place] coronary artery of [place] heart with angina pectoris I25.119 Coronary Disease-Associated Artery/Lesion type: [place] artery [place] vs. transplanted heart: [place] heart Associated angina: with unspecified form of angina Abnormal TSH R79.89 CPT Codes EKG - CPT: 50849-[id number], Complete ([id number]) Time Spent (min) 35
== END 2022-12-01 16:32 | disposition home or self-care (01) ==
PROVIDERS: PCP Internal Medicine; Visit Provider Nurse Practitioner Family
DX: R07.89 Other chest pain (principal); Z98.890 Other specified postprocedural states; R06.02 Shortness of breath; Z95.5 Presence of coronary angioplasty implant and graft; I34.2 Nonrheumatic mitral (valve) stenosis; I35.0 Nonrheumatic aortic (valve) stenosis; I51.9 Heart disease, unspecified; E78.5 Hyperlipidemia, unspecified; I25.119 Atherosclerotic heart disease of native coronary artery with unspecified angina pectoris; R79.89 Other specified abnormal findings of blood chemistry
CPT/HCPCS: 93010; 99214

== ENCOUNTER → 2022-12-03 16:02 | Outpatient (REF) | payer OTHER, SELFPAY ==
[2022-10-09 07:53] VITALS: BP 114/58; BP 156/54
[2022-12-01 15:17] VITALS: BP 100/50; BMI 40.1
--- NOTE | 2022-12-03 16:06 | CA_ITS ---
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 Normal LV systolic function with LVEF of 60 65% with no regional wall motion abnormality with elevated filling pressures 2. Normal RV systolic pressure 3. No gross pericardial effusion Findings Procedure Information Contrast agent, definity, is being given per protocol without apparent complications. Left Ventricle Normal left ventricular size, thickness, and systolic function. The visually estimated ejection fraction is between 60-65%. There is no evidence of regional wall motion abnormalities. Spectral Doppler is indicative of an impaired relaxation filling pattern. Elevated filling pressures. Tricuspid Valve Normal tricuspid valve structure. There is trace tricuspid valve regurgitation. The right ventricular systolic pressure is normal. The right ventricular systolic pressure is 20 mmHg. There is no evidence of pulmonary hypertension. Pericardium/Pleural There is no evidence of pericardial effusion. Measurements 2D Linear Measurements IVSd: 0.91 0.6-0.9/0.6-1.0 cm LVIDd: 4.23 3.9-5.3/4.2-5.9 cm LVIDd Index: 2.15 2.4-3.2/2.2-3.1 cm/m2 LVIDs: 2.85 2.0-3.6 cm LVPWd: 1.12 0.7-1.1 cm LV Mass: 175.92 67-162/88-224 g LV Mass Index: 89.30 43-95/49-115 g/m2 2D Systolic Function EF 4C: 68.60 >55% EF 2C: 58.10 >55% EF BiP: 63.10 >55% Mitral Valve MV Pk E: 1.20 MV PK A: 1.27 MV Decel Time: 238.00 E/A: 0.90 E'Lateral: 6.64 E'Medial: 4.24 E/E' Med: 28.30 E/E' Lat: 18.10 PHT: 70.00 MVA PHT: 3.14 Decel [place]: 5.01 Diastolic Function MV Pk E: 1.20 MV Pk A: 1.27 E/A: 0.90 E'Medial: 4.24 E/E' Med: 28.30 E' Laterial: 6.64 E/E' Lat: 18.10 Right Ventricle TAPSE (mm): 23.00 TVS' Godwin: 10.00 Tricuspid Valve TR Pk God[place]: 2.04 TR Pk Grad: 17.00 RA Press: 3.00 RVSP: 20.00 Updated in Other Vendor System with Status of Final Terrance Ordonez MD electronically signed on 12/04/2022 11:36:02 AM with status of Final
== END ==
LOC: HO.CARD 16:02
PROVIDERS: PCP Internal Medicine; Visit Provider Nurse Practitioner Family
DX: R07.9 Chest pain, unspecified (principal); R06.02 Shortness of breath
CPT/HCPCS: 93308; Q9957

== ENCOUNTER → 2022-12-03 16:06 | Outpatient (BNV) | payer OTHER, SELFPAY ==
[2022-10-09 07:53] VITALS: BP 114/58; BP 156/54
[2022-12-01 15:17] VITALS: BP 100/50; BMI 40.1
== END ==
PROVIDERS: PCP Internal Medicine; Visit Provider Internal Medicine Cardiovascular Disease
DX: R07.9 Chest pain, unspecified (principal)
CPT/HCPCS: 93308

== ENCOUNTER 2022-12-10 15:29 | Outpatient (REF) | payer OTHER, SELFPAY ==
[2022-10-09 07:53] VITALS: BP 114/58; BP 156/54
[2022-12-10 16:32] LABS: CDiff Gene PCR NEGATIVE (Negative)
[2022-12-11 11:18] LABS: Adenovirus F 40/41 Not Detected (Not Detect.); Astrovirus Not Detected (Not Detect.); Campylobacter Not Detected (Not Detect.); Cryptosporidium Not Detected (Not Detect.); Cyclospora cayetanensis Not Detected (Not Detect.); E. coli EAEC Not Detected (Not Detect.); E. coli EPEC Not Detected (Not Detect.); E. coli ETEC Not Detected (Not Detect.); E. coli STEC Not Detected (Not Detect.); Entamoeba histolytica Not Detected (Not Detect.); Giardia lamblia Not Detected (Not Detect.); Norovirus GI/GII Not Detected (Not Detect.); Plesiomonas shigelloides Not Detected (Not Detect.); Rotavirus A Not Detected (Not Detect.); Salmonella Not Detected (Not Detect.); Sapovirus Not Detected (Not Detect.); Shigella sp./EIEC Not Detected (Not Detect.); Vibrio Not Detected (Not Detect.); Vibrio Cholerae Not Detected (Not Detect.); Yersinia enterocolitica Not Detected (Not Detect.)
[2022-12-20 03:24] LABS: Lactoferrin, Fecal, Quant. 28.17 mcg/mL (<7.25)
== END 2022-12-10 15:30 | disposition home or self-care (01) ==
LOC: HO.LNP 15:29
PROVIDERS: Visit Provider Internal Medicine Gastroenterology
DX: K51.50 Left sided colitis without complications (principal); K52.9 Noninfective gastroenteritis and colitis, unspecified
CPT/HCPCS: 83631; 87493; 87507

== ENCOUNTER → 2022-12-11 08:03 | Outpatient (REF) | payer OTHER, SELFPAY ==
[2022-10-09 07:53] VITALS: BP 114/58; BP 156/54
[2022-11-04 15:21] VITALS: BP 112/60; BMI 40.1
== END ==
LOC: HO.CARD 08:03
PROVIDERS: PCP Internal Medicine; Visit Provider Internal Medicine Cardiovascular Disease
DX: I25.10 Atherosclerotic heart disease of native coronary artery without angina pectoris (principal); Z95.5 Presence of coronary angioplasty implant and graft; Z98.890 Other specified postprocedural states; E66.9 Obesity, unspecified
CPT/HCPCS: 78452; 93017; A9500

== ENCOUNTER → 2022-12-11 08:05 | Outpatient (BNV) | payer OTHER, SELFPAY ==
[2022-10-09 07:53] VITALS: BP 114/58; BP 156/54
[2022-12-01 15:17] VITALS: BP 100/50; BMI 40.1
== END ==
PROVIDERS: PCP Internal Medicine; Visit Provider Nurse Practitioner Family
DX: I25.10 Atherosclerotic heart disease of native coronary artery without angina pectoris (principal); Z95.5 Presence of coronary angioplasty implant and graft
CPT/HCPCS: 78452; 93016; 93018

== ENCOUNTER 2022-12-23 19:14 | Emergency (ER) | payer OTHER, SELFPAY ==
[2022-10-09 07:53] VITALS: BP 114/58; BP 156/54
--- NOTE | 2022-12-23 | ECG_ITS ---
Test Reason : CHEST PAIN Blood Pressure : / mmHG Vent. Rate : 100 BPM Atrial Rate : 100 BPM P-R Int : 140 ms QRS Dur : 094 ms QT Int : 328 ms P-R-T Axes : 037 -33 051 degrees QTc Int : 423 ms Normal sinus rhythm Left anterior fascicular block Left ventricular hypertrophy with repolarization abnormality ( R in aVL , [place] product , [place] ) Abnormal ECG When compared with ECG of 07-NOV-2022 14:53, Heart rate has increased Referred By: Generic ED Physician Electronically Signed By:JOJO LOJA MD
--- NOTE | ~2022-12-23 | XR_ITS ---
EXAMINATION: XR CHEST CLINICAL INFORMATION: Chest pain. COMPARISON: 12/01/2022. TECHNIQUE: Frontal view of the chest was obtained. FINDINGS: The cardiomediastinal silhouette is normal. Left pleural thickening again seen. There is no focal lung consolidation or pleural effusion. The bony structures and soft tissues are unremarkable. XR/XR chest 1V IMPRESSION: No active cardiopulmonary disease. No significant change.
[2022-12-23 19:31] VITALS: BP 127/82; PULSE 104; RESP 16; TEMP 36.6; O2SAT 99; BMI 39.3
--- NOTE | 2022-12-23 19:37 | ED.GENADULT ---
HPI - General Adult General Chief complaint: Chest Pain Stated complaint: Chest pain 2Xdays Time Seen by Provider: 12/23/22 22:21 Source: patient and old records reviewed Mode of arrival: ambulatory Limitations: no limitations History of Present Illness HPI narrative: 56 yo female with hx of bariatric surgery, pericarditis x 3 weeks on colchicine and prednisone seen by Deisy INPATIENT NURSING AIDE, chest pain, radiation induced CAD s/p stent, aortic stenosis, mitral regurg, hypothyroidism, anxiety and depression, prior hodgkin's lymphoma, notes yesterday had chest pain across chest and back just felt terrible came in waves and then again today. She notes it hurts to touch and move occurs at rest and exertion. No fevers or cough. Has had this before. MD complaint: chest pain Onset (ago): day(s) (1) Location: chest and back Radiation: back Severity: moderate Quality: aching and constant Pain Consistency: constant Relieving factors: none Exacerbating factors: movement Associated symptoms: shortness of breath Treatments prior to arrival: none Related Data Home Medications Medication Instructions Recorded Confirmed morphine 15 mg immediate release 15 mg PO BID PRN Pain 02/08/20 12/01/22 tablet pantoprazole 40 mg tablet,delayed 40 mg PO DAILY 02/08/20 12/01/22 release sertraline 100 mg tablet 100 mg PO DAILY 02/08/20 12/01/22 levothyroxine 137 mcg tablet 137 mcg PO DAILY 08/19/21 12/01/22 (Levoxyl) lorazepam 0.5 mg tablet 0.5 mg PO BID PRN anxiety 08/19/21 12/01/22 sertraline 25 mg tablet 25 mg PO DAILY 08/19/21 12/01/22 albuterol sulfate 90 mcg/actuation inhalation 04/21/22 12/01/22 aerosol inhaler nortriptyline 10 mg capsule 10 mg PO BEDTIME 07/08/22 12/01/22 ticagrelor 90 mg tablet (Brilinta) 90 mg PO BID 08/25/22 12/01/22 ubrogepant 50 mg tablet (Ubrelvy) 50 mg PO DAILY 08/25/22 12/01/22 fexofenadine 180 mg tablet 180 mg PO DAILY 09/04/22 12/01/22 (Angela Allergy) meclizine 12.5 mg tablet 12.5 mg PO DAILY PRN 09/04/22 12/01/22 cholecalciferol (vitamin D3) 50 50 mcg PO DAILY 12/01/22 12/01/22 mcg (2,000 unit) capsule Previous Rx's Medication Instructions Recorded mesalamine 250 mg capsule,extended 1,000 mg (4 x 250 mg) PO TID 90 02/27/22 release (Pentasa) days #1,080 caps cane #1 ea 04/23/22 aspirin 81 mg tablet,delayed 81 mg PO DAILY #30 tabs 07/09/22 release (Ecotrin Low Strength) atorvastatin 40 mg tablet 40 mg PO DAILY #30 tabs 07/09/22 fluticasone furoate 100 1 inh inhalation DAILY #60 ea 12/01/22 mcg-vilanterol 25 mcg/dose inhalation powder (Breo Ellipta) colchicine (gout) 0.6 mg tablet 0.6 mg PO BID 30 days #60 tabs 12/02/22 prednisone 10 mg tablet 10 mg PO DIRECTED #21 tabs 12/12/22 morphine 15 mg immediate release 15 mg PO TID PRN pain #12 tabs 12/23/22 tablet prednisone 5 mg tablet 5 mg PO DIRECTED #42 tabs 12/23/22 Allergies Allergy/AdvReac Type Severity Reaction Status Date / Time oxycodone [From PERCOCET] Allergy Intermediate HIVES Verified 12/23/22 19:35 Sulfa (Sulfonamide Allergy Intermediate HIVES Verified 12/23/22 19:35 Antibiotics) [SULFA (SULFONAMIDE ANTIBIOTICS)] diatrizoate meglumine Allergy Unknown red rash Verified 12/23/22 19:35 [Gastrografin] Review of Systems Review of Systems: Constitutional : No Weight loss, No Fever, No Chills ENT/Mouth : No sore throat, No Rhinorrhea Eyes: No Eye Pain, No Swelling Cardiovascular : pos Chest Pain, pos SOB, no Dyspnea on Exertion, No Orthopnea, No Edema, No Palpitations Respiratory : No Cough, No Sputum Gastrointestinal : no Nausea, No Vomiting, No Diarrhea, No abdominal Pain, No Hematochezia, No Melena Genitourinary : No Dysuria, No Urinary Frequency Musculoskeletal : No joint pain, No Myalgias, No Joint Swelling Skin : No Skin Lesions, No rash Neuro : No Weakness, No Numbness, No Dizziness, No Headache Psych : No Anxiety/Panic, No Depression Heme/Lymph: No Bruising, No Lymphadenopathy Endocrine : No Polyuria, No Polydipsia All other systems reviewed and are negative [facility] Past Medical History Attestation statement: The following information was validated with the patient. Source: old records reviewed Medical History History of shingles CAD (coronary artery disease) Hyperlipidemia Obesity Anxiety and depression Tubular adenoma of colon History of Hodgkin's lymphoma Radiation-induced heart disease Asthma Hypothyroid Hepatic steatosis GERD (gastroesophageal reflux disease) Herpes Surgical History History of repair of hiatal hernia (~2017) History of thoracentesis (~2018) History of ankle surgery History of section History of colonoscopy History of heart artery stent (~2022) History of arthroscopy of right shoulder History of sleeve gastrectomy (~2017) History of esophagogastroduodenoscopy (EGD) History of cholecystectomy Family History Family History Mother Colon cancer Father Hypertension Prostate cancer Son Diabetes Daughter Autism Social History Social History Alcohol intake: current Alcohol intake frequency: holidays/special occasions only Patient Tobacco Use Status: Never used Tobacco Smoked in Last 30 Days: No Use of substances other than those prescribed or required for medical reasons: No Advance Directives: No Advance Directives Information Provided: No Patient : No 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: employed 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 Oriented X3. No acute distress. Eyes: Pupils equal, round and reactive to light. ENT: Pharynx normal. Neck: Normal inspection. Neck supple. CVS: Normal heart rate and rhythm. Pulses normal. Chest: ttp along chest wall and posteiror back reproduces pain Respiratory: No respiratory distress. Breath sounds normal. Abdomen: Soft and nontender. Skin: Skin warm and dry. Normal skin color. Normal skin turgor. Extremities: No lower extremity edema. No calf ttp Neuro: Oriented X 3. No motor deficit. No sensory deficit. Course Course Course Narrative: This is an RME: Additional HPI, ROS, PE not included below will be deferred to primary provider. 56 yo F presents w/ cp currently taking colchicine for this hx of stents. Now compaling of cp and slight neck discomfort Plan- labs, ekg, Reevaluation(s) Reevaluation #1: suspect WBC from prednisone Medications Administered Discontinued Medications Generic Name Dose Route Start Last Admin Trade Name Freq PRN Reason Stop Dose Admin Morphine Sulfate 15 mg 12/23/22 22:49 12/23/22 23:06 Morphine Sulfate Immed Release 15 Mg Tablet PO 12/23/22 22:50 15 mg ONCE ONE Administration Procedures Procedure Narrative Procedure Narrative: very minimal pericardial effusion on bedside echo - no tamponade noted. Medical Decision Making Medical Decision Making [facility] Narrative: 56 yo female with hx of bariatric surgery, pericarditis x 3 weeks on colchicine and prednisone seen by Deisy INPATIENT NURSING AIDE, chest pain, radiation induced CAD s/p stent, aortic stenosis, mitral regurg, hypothyroidism, anxiety and depression, prior hodgkin's lymphoma here with reproduceable chest wall pain and back pain at this time given her medical issues will need bedside ECHO for effusion, ddimer, tropoinin x 2, PO morphine viral panel and CXR this does seem MSK in nature and she just had ECHO and normal stress test along with CTA that was normal. she is compliant with her medications. Differential Diagnosis Differential Diagnoses: The differential diagnosis associated with the presentation includes VTE, chest pain, chest wall pain, pericardial effusion Admission/Observation Consideration of admission/observation: Escalation of care including admission/observation considered trop flat x 2, ddimer negative, CXR negative, no effusion, LFTs mild trend up will need to hold colchicine until she talks to cardiology at this time VS stable can be managed as outpatient Lab Data [facility] Lab Attestation statement: I reviewed the patient's lab results. 12/23/22 20:39 12/23/22 20:39 Labs: Lab Results 12/23/22 12/23/22 12/23/22 Range/Units 20:27 20:38 20:39 WBC 12.2 H (4.8-10.8) X10*3/uL RBC 4.53 (4.20-5.50) X10*6/uL Hgb 13.3 (12.0-16.0) g/dl Hct 38.9 (37.0-47.0) % MCV 85.9 (80.0-98.0) fL MCH 29.4 (27.0-33.0) pg MCHC 34.2 (31.0-35.0) g/dl RDW 14.6 (11.0-16.0) % Plt Count 307 (160-400) X10*3/uL MPV 11.9 (9.4-12.3) fL Immature Gran % (Auto) 0.7 H (0.0-0.4) % Neut % (Auto) 84.7 H (45-73) % Lymph % (Auto) 11.9 L (20-40) % [place] % (Auto) 2.5 (2-11) % Eos % (Auto) 0.0 (0-4) % Baso % (Auto) 0.2 (0-2) % Lymph # (Auto) 1.5 (1.2-4.9) X10*3/uL [place] # (Auto) 0.3 (0.1-1.2) X10*3/uL Eos # (Auto) 0.0 (0.0-0.4) X10*3/uL Baso # (Auto) 0.0 (0.0-0.2) X10*3/uL Abs Immat Gran (auto) 0.08 H (0.00-0.03) X10*3/uL Absolute Neuts (auto) 10.4 H (2.0-8.3) x10*3/uL Absolute Nucleated RBC 0.000 (0.0-0.012) X10*3/uL Nucleated RBC % (auto) 0.0 (0.0-0.2) /100WBC ESR (0-20) MM/HR PT 11.1 (11.1-13.3) SEC INR 0.9 (0.9-1.1) D-Dimer High Sensitivty < 150 NG/ML Sodium 139 (135-145) mmol/L Potassium 4.0 (3.3-5.1) mmol/L Chloride 106 (96-108) mmol/L Carbon Dioxide 20 L (22-29) mmol/L Anion Gap 17 (12-20) BUN 18 H (9-16) mg/dL Creatinine 0.80 (0.5-1.4) mg/dL Estim Creat Clear Calc 87.6 Estimated GFR > 60 Random Glucose 139 H (60-115) mg/dL Calcium 9.7 (8.4-10.2) mg/dL Total Bilirubin 1.5 H (0.0-1.0) mg/dL AST 63 H (5-31) U/L ALT 68 H (0-31) U/L Alkaline Phosphatase 222 H (39-117) U/L Troponin I High Sens 13.4 D (<3.5-17.0) ng/L C-Reactive Protein 0.14 (< or = 0.50) mg/dL B-Natriuretic Peptide 56 (<100) pg/mL Total Protein 7.2 (6.5-8.0) g/dL Albumin 4.2 (3.5-5.0) g/dL COVID-19 (YASMIN) (Negative) COVID-19 Clin Com Influenza Type A (EMELI) (Negative) Influenza Type B (EMELI) (Negative) Influenza A & B Note 12/23/22 12/23/22 Range/Units 20:40 23:00 WBC (4.8-10.8) X10*3/uL RBC (4.20-5.50) X10*6/uL Hgb (12.0-16.0) g/dl Hct (37.0-47.0) % MCV (80.0-98.0) fL MCH (27.0-33.0) pg MCHC (31.0-35.0) g/dl RDW (11.0-16.0) % Plt Count (160-400) X10*3/uL MPV (9.4-12.3) fL Immature Gran % (Auto) (0.0-0.4) % Neut % (Auto) (45-73) % Lymph % (Auto) (20-40) % [place] % (Auto) (2-11) % Eos % (Auto) (0-4) % Baso % (Auto) (0-2) % Lymph # (Auto) (1.2-4.9) X10*3/uL [place] # (Auto) (0.1-1.2) X10*3/uL Eos # (Auto) (0.0-0.4) X10*3/uL Baso # (Auto) (0.0-0.2) X10*3/uL Abs Immat Gran (auto) (0.00-0.03) X10*3/uL Absolute Neuts (auto) (2.0-8.3) x10*3/uL Absolute Nucleated RBC (0.0-0.012) X10*3/uL Nucleated RBC % (auto) (0.0-0.2) /100WBC ESR 5 (0-20) MM/HR PT (11.1-13.3) SEC INR (0.9-1.1) D-Dimer High Sensitivty NG/ML Sodium (135-145) mmol/L Potassium (3.3-5.1) mmol/L Chloride (96-108) mmol/L Carbon Dioxide (22-29) mmol/L Anion Gap (12-20) BUN (9-16) mg/dL Creatinine (0.5-1.4) mg/dL Estim Creat Clear Calc Estimated GFR Random Glucose (60-115) mg/dL Calcium (8.4-10.2) mg/dL Total Bilirubin (0.0-1.0) mg/dL AST (5-31) U/L ALT (0-31) U/L Alkaline Phosphatase (39-117) U/L Troponin I High Sens 12.9 (<3.5-17.0) ng/L C-Reactive Protein (< or = 0.50) mg/dL B-Natriuretic Peptide (<100) pg/mL Total Protein (6.5-8.0) g/dL Albumin (3.5-5.0) g/dL COVID-19 (YASMIN) Negative (Negative) COVID-19 Clin Com See Note Influenza Type A (EMELI) Negative (Negative) Influenza Type B (EMELI) Negative (Negative) Influenza A & B Note See Note Independent Interpretation I performed an independent interpretation of an: EKG and Plain X-Ray (normal ) Interpretation: Rate: 100 Rhythm: NSR [place]: left, LVH Normal P waves. Normal TIERNEY. Normal QRS complex. ST T wave : no [place], no ST depression qTC: normal prior studies: no change from prior The study has been interpreted contemporaneously by me. . Radiology Impression Discussion of test interpretation with radiology: I have reviewed the radiologist's reading. Independent Historian Clinical information obtained from an independent historian. History obtained from or confirmed by: Friend External Record Review External record reviewed: Inpatient record Discharge Plan Discharge Clinical Impression: Chest pain Qualifiers: Chest pain type: unspecified Qualified Code(s): R07.9 - Chest pain, unspecified Patient Disposition: Home, Self-Care Instructions: Chest Pain (ED) Additional Instructions: tests for heart x 2 negative, chest xray normal, blood clot negative, covid and flu negative I am concerned about your liver enzymes trending up on colchicine please hold until you talk to cardiology please call in AM Prescriptions: New morphine 15 mg tablet 15 mg PO TID PRN (Reason: pain) Qty: 12 0RF Rx Instructions: partial fill okay; Partial Fill upon patient request. No Action Pentasa 250 mg capsule, extended release 1,000 mg PO TID 90 Days Qty: 1080 2RF fluticasone furoate-vilanterol [Breo Ellipta] 100-25 mcg/dose blister with device 1 inh inhalation DAILY Qty: 60 3RF colchicine (gout) 0.6 mg tablet 0.6 mg PO BID 30 Days Qty: 60 2RF prednisone 10 mg tablet 10 mg PO DIRECTED Qty: 21 0RF Rx Instructions: see taper instructions: Take 20mg ( 2 tablets) daily for 8 days, Then take 10mg ( 1 tablet) daily for 6 days and then take 5mg ( 1/2 tablet) daily for 6 days prednisone 5 mg tablet 5 mg PO DIRECTED Qty: 42 0RF Rx Instructions: Use 10 mg tabs ( previously prescribed) for total of 2-3 weeks until chest pain has resolved - see other script Then use 5 mg tabs for weaning: take 3 tabs ( 15mg) daily for 7 days, then 2 tabs ( 10mg) daily for 7 days, then 1 tab ( 5 mg) daily for 7 days then stop. (DME) cane Device See Rx Instructions .Route Qty: 1 0RF Rx Instructions: As directed sertraline 100 mg tablet 100 mg PO DAILY pantoprazole 40 mg tablet,delayed release (DR/EC) 40 mg PO DAILY morphine 15 mg tablet 15 mg PO BID PRN (Reason: Pain) meclizine 12.5 mg tablet 12.5 mg PO DAILY PRN levothyroxine [Levoxyl] 137 mcg tablet 137 mcg PO DAILY sertraline 25 mg tablet 25 mg PO DAILY lorazepam 0.5 mg tablet 0.5 mg PO BID PRN (Reason: anxiety) Ubrelvy 50 mg tablet 50 mg PO DAILY Brilinta 90 mg tablet 90 mg PO BID nortriptyline 10 mg capsule 10 mg PO BEDTIME aspirin [Ecotrin Low Strength] 81 mg tablet,delayed release (DR/EC) 81 mg PO DAILY Qty: 30 5RF atorvastatin 40 mg tablet 40 mg PO DAILY Qty: 30 5RF albuterol sulfate 90 mcg/actuation HFA aerosol inhaler inhalation fexofenadine [Angela Allergy] 180 mg tablet 180 mg PO DAILY cholecalciferol (vitamin D3) 50 mcg (2,000 unit) capsule 50 mcg PO DAILY Referrals: Helen Olivas INPATIENT NURSING AIDE-C [Nurse Practitioner] - 1 day
[2022-12-23 20:45] LABS: MANUAL DIFF FLAG NO
[2022-12-23 20:50] LABS: Basophils Percent Auto 0.2 % (0-2); Hematocrit 38.9 % (37.0-47.0); Hemoglobin 13.3 g/dl (12.0-16.0); Imm Gran Abs Auto 0.08 X10*3/uL (0.00-0.03); Imm Gran Pct Auto 0.7 % (0.0-0.4); Lymphocytes Absolute Auto 1.5 X10*3/uL (1.2-4.9); Lymphocytes Percent Auto 11.9 % (20-40); Mean Corpuscular HGB Conc 34.2 g/dl (31.0-35.0); Mean Corpuscular Hemoglobin 29.4 pg (27.0-33.0); Mean Corpuscular Volume 85.9 fL (80.0-98.0); Mean Platelet Volume 11.9 fL (9.4-12.3); Monocytes Absolute Auto 0.3 X10*3/uL (0.1-1.2); Monocytes Percent Auto 2.5 % (2-11); Neutrophils Absolute Auto 10.4 x10*3/uL (2.0-8.3); Neutrophils Percent Auto 84.7 % (45-73); Platelet Count 307 X10*3/uL (160-400); Red Blood Count 4.53 X10*6/uL (4.20-5.50); Red Cell Distribution Width 14.6 % (11.0-16.0); White Blood Count 12.2 X10*3/uL (4.8-10.8)
[2022-12-23 20:52] LABS: INTERNATIONAL NORM RATIO 0.9 (0.9-1.1); Prothrombin Time 11.1 SEC (11.1-13.3)
[2022-12-23 20:57] LABS: D Dimer High Sensitivity < 150 NG/ML
[2022-12-23 21:07] LABS: Alanine Aminotransferase 68 U/L (0-31); Albumin Level 4.2 g/dL (3.5-5.0); Alkaline Phosphatase 222 U/L (39-117); Anion Gap 17 (12-20); Aspartate Amino Transferase 63 U/L (5-31); Bilirubin Total 1.5 mg/dL (0.0-1.0); Blood Urea Nitrogen 18 mg/dL (9-16); C Reactive Protein 0.14 mg/dL (< or = 0.50); Calcium 9.7 mg/dL (8.4-10.2); Carbon Dioxide 20 mmol/L (22-29); Chloride 106 mmol/L (96-108); Creatinine Clr Calc Pharmacy 87.6; Estimated Glomerular Filt Rate > 60; Glucose Random 139 mg/dL (60-115); Sodium 139 mmol/L (135-145); Total Protein 7.2 g/dL (6.5-8.0)
[2022-12-23 21:09] LABS: Troponin-I High Sensitivity 13.4 ng/L (<3.5-17.0)
[2022-12-23 21:11] LABS: B Type Natriuretic Peptide 56 pg/mL (<100)
[2022-12-23 21:47] LABS: Erythrocyte Sedimentation Rate 5 MM/HR (0-20)
[2022-12-23 22:24] VITALS: BP 158/67; PULSE 86; RESP 17; TEMP 36.8; O2SAT 97
[2022-12-23] MEDS: Morphine Sulfate Immed Release 15 MG TABLET PO (23:06)
[2022-12-23 23:24] LABS: IDNOW Serial# BCCEAD1C; Influenza A Negative (Negative); Influenza B2 Negative (Negative)
[2022-12-23 23:25] LABS: COVID-19 Test Negative (Negative); IDNOW Serial# 08D9AD1C
[2022-12-23 23:28] LABS: Troponin-I High Sensitivity 12.9 ng/L (<3.5-17.0)
--- NOTE | 2022-12-24 00:05 | PC.NURSE ---
pt assessed at d/c, reported tolerable 5/10 chest pain, ambulatory gait steady
== END 2022-12-24 00:07 | disposition home or self-care (01) ==
PROVIDERS: Physician Assistant; Emergency Provider Emergency Medicine; PCP Internal Medicine
DX: R07.9 Chest pain, unspecified (principal); E78.5 Hyperlipidemia, unspecified; Z79.82 Long term (current) use of aspirin; Z79.899 Other long term (current) drug therapy; Z11.52 Encounter for screening for COVID-19
CPT/HCPCS: 36415; 71045; 80053; 83880; 84484; 85025; 85379; 85610; 85652; 86140; 87502; 87635; 93005; 99283; 99285

== ENCOUNTER 2022-12-26 08:55 | Outpatient (REF) | payer OTHER, SELFPAY ==
[2022-10-09 07:53] VITALS: BP 114/58; BP 156/54
--- NOTE | 2022-12-26 09:59 | PFT_ITS ---
Forced vital capacity 101%, FEV1 96%, FEV1/FVC ratio 76. [id number] 79%, MVV 104%. Post bronchodilator therapy, there is no significant change. Lung volumes, total lung capacity is 85%. Residual volume 63%. Diffusion capacity is 68% CONCLUSION: There is a borderline restrictive pulmonary disorder. No obstructive airway disorder. No response to bronchodilator therapy. Clinical correlation recommended. MD KELLI Lopez/MODL / [id number]
== END 2022-12-26 08:56 | disposition home or self-care (01) ==
LOC: HO.RESP 08:55
PROVIDERS: PCP Internal Medicine; Visit Provider Nurse Practitioner Family
DX: J45.909 Unspecified asthma, uncomplicated (principal)
CPT/HCPCS: 94010; 94618; 94640; 94727; 94729

== ENCOUNTER → 2022-12-26 09:59 | Outpatient (BNV) | payer OTHER, SELFPAY ==
[2022-10-09 07:53] VITALS: BP 114/58; BP 156/54
[2022-12-01 15:17] VITALS: BP 100/50; BMI 40.1
== END ==
PROVIDERS: PCP Internal Medicine; Visit Provider Internal Medicine
DX: J45.909 Unspecified asthma, uncomplicated (principal)
CPT/HCPCS: 94060; 94727; 94729

== ENCOUNTER 2022-12-26 13:04 | Outpatient (AMB) | payer OTHER, SELFPAY ==
[2022-10-09 07:53] VITALS: BP 114/58; BP 156/54
[2022-12-26 13:09] VITALS: BP 126/70; PULSE 104; O2SAT 98; BMI 38.8
--- NOTE | 2022-12-26 13:09 | A.OFFVIS_ITS ---
Intake Vital Signs 12/26/22 13:09 Height 5 ft 2 in Weight 212 lb BMI 38.8 BP 126/70 Blood Pressure Location Rt brachial Position Sitting Pulse 104 H Pulse Source Pulse Oximeter Pulse Oximetry (%) 98 Oxygen Delivery Method Room Air Intake Visit Reasons: resp sx Digital Account Executive Required: No Fuel Efficient Aircraft Designer: Fuel Efficient Aircraft Designer offered & declined Accompanied by: Spouse Allergies oxycodone [From PERCOCET] Allergy (Intermediate, Verified 12/26/22 13:17) HIVES Sulfa (Sulfonamide Antibiotics) [SULFA (SULFONAMIDE ANTIBIOTICS)] Allergy (Intermediate, Verified 12/26/22 13:17) HIVES diatrizoate meglumine [Gastrografin] Allergy (Unknown, Verified 12/26/22 13:17) red rash Medication List - Last Reconciled 12/26/22 by Jenise Cruz LPN albuterol sulfate 90 mcg/actuation inhalation aspirin (Ecotrin Low Strength) 81 mg PO DAILY atorvastatin 40 mg PO DAILY cane As directed cholecalciferol (vitamin D3) 50 mcg PO DAILY colchicine (gout) 0.6 mg PO BID 30 days fexofenadine (Angela Allergy) 180 mg PO DAILY fluticasone furoate-vilanterol 100-25 mcg/dose (Breo Ellipta) 1 inh inhalation DAILY levothyroxine (Levoxyl) 137 mcg PO DAILY lorazepam 0.5 mg PO BID PRN meclizine 12.5 mg PO DAILY PRN mesalamine ER (Pentasa) 1,000 mg (4 x 250 mg) PO TID 90 days morphine 15 mg PO TID PRN morphine 15 mg PO BID PRN nortriptyline 10 mg PO BEDTIME pantoprazole 40 mg PO DAILY prednisone 10 mg PO DIRECTED prednisone 5 mg PO DIRECTED sertraline 100 mg PO DAILY sertraline 25 mg PO DAILY ticagrelor (Brilinta) 90 mg PO BID ubrogepant (Ubrelvy) 50 mg PO DAILY HPI resp sx HPI Details Rose Marie is a very pleasant 56 year old female, never smoker, with underlying history of asthma, moderate aortic and mitral valve stenosis and h/o hodgkin's lymphoma in her 20s s/p mantle radiation. She also reports undergoing two thoracentesis, then pleurodesis, all on the left, in [address] Flowers for recurrent pleural effusions. All testing was reportedly negative for malignancies. Today she returns to review response to Breo, RAST/PFT results and status of PET scan. Since the last visit, she reports worsening dyspnea on exertion and no response with Breo. She notes new symptoms of night sweats, intermittently feeling feverish, weight loss (6 lbs in a month) and decreased appetite. She also notes new hoarseness for the past week as well as a globus sensation. She denies any throat pain or difficulty swallowing. She reports radiating chest pain that she was evaluated in the ED for on 12/23 with no significant findings. She continues to be on prednisone and cholchicine, prescribed by cardiology for pericarditis. She has been on prednisone 20 mg x 2 weeks, now on 15 mg. [facility] Medical History History of shingles CAD (coronary artery disease) Hyperlipidemia Obesity Anxiety and depression Tubular adenoma of colon History of Hodgkin's lymphoma Radiation-induced heart disease Asthma Hypothyroid Hepatic steatosis GERD (gastroesophageal reflux disease) Herpes Surgical History History of repair of hiatal hernia (~2017) History of thoracentesis (~2018) History of ankle surgery History of section History of colonoscopy History of heart artery stent (~2022) History of arthroscopy of right shoulder History of sleeve gastrectomy (~2017) History of esophagogastroduodenoscopy (EGD) History of cholecystectomy Family History Mother Colon cancer Father Hypertension Prostate cancer Son Diabetes Daughter Autism Social History (Updated 12/26/22 @ 13:19 by Jenise Cruz LPN) Alcohol intake: current Alcohol intake frequency: holidays/special occasions only Patient Tobacco Use Status: Never used Tobacco Smoked in Last 30 Days: No 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: employed 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 Review of Systems Const Denies chills, Denies excessive sweating, Denies headache(s), Reports night sweats, Reports poor appetite and Reports weight loss Eyes Denies dry eyes and Denies irritation ENT Reports Normal hearing present, Denies dysphagia, Reports dry mouth, Denies headache(s), Reports hoarseness, Denies nasal congestion and Denies sore throat Card Denies chest pain, Denies chest pain at rest, Denies chest pain with activity, Reports dyspnea on exertion, Denies orthopnea and Denies paroxysmal nocturnal dyspnea Resp Denies chest congestion, Reports cough, Denies hemoptysis, Denies excessive phlegm production, Denies pain on inspiration, Denies pain with cough, Reports dyspnea on exertion, Denies stridor and Reports wheezing (while laying down only) GI Denies dysphagia Musc Denies myalgias Neuro Reports Normal hearing present and Denies headache(s) Endo Denies excessive sweating Aller/Immun Reports seasonal rhinorrhea and Reports wheezing (while laying down only) Physical Exam Vital Signs: Last Vital Signs Pulse 104 H 12/26/22 13:09 BP 126/70 12/26/22 13:09 Pulse Ox 98 12/26/22 13:09 Oxygen Delivery Method Room Air 12/26/22 13:09 BMI result Body Mass Index 38.8 Const General: cooperative, healthy appearing, comfortable, no acute distress, well developed and alert Nutritional Appearance: obese Orientation/consciousness: patient oriented x3 HEENT Head: Yes normal to inspection, Yes normocephalic and Yes atraumatic Ears: hearing grossly normal bilaterally and external ears normal Eyes General: appearance normal, both eyes and all related structures Eyelids: Yes eyelids normal Sclerae: sclerae normal EOM: EOMs intact bilaterally Neck Neck: Yes normal visual inspection and Yes no lymphadenopathy Lymphatic: no lymphadenopathy noted Chest Chest palpation & inspection: normal inspection of the chest Resp Other: diminished lung sounds, improved with duoneb Effort & Inspection: normal respiratory effort, able to speak in complete sentences, no audible wheezes, no cough, no stridor, not tachypneic, no tripod positioning and no use of accessory muscles Cardio Jugular venous distension: no JVD Rate: regular rate Rhythm: regular rhythm Skin Other: warm, dry General skin exam: no rashes or lesions noted Neuro General: patient oriented x3 Cranial nerves: Yes Normal hearing present Cognition (Neuro): normal cognition Gait exam (Neuro): Normal gait present Extrem General: Yes normal to inspection, Yes capillary refill normal, Yes no clubbing, cyanosis or edema and Yes no pedal edema Psych Appearance: grossly normal and well kempt Speech and movement: Normal speech and movement present and Clear speech present Affect: normal affect Attitude: cooperative Thought process: Normal thought process present Thought content: Normal thought content present Judgement: Good judgement present (Psych) Office Procedures 6 Minute Walk Time:: 13:51 SPO2 % at rest: 97 Pulse at rest: 101 SPO2 % during excercise: 97 Pulse during excercise: 132 SPO2 % after excercise: 97 Pulse after excercise: 116 Distance in yards walked: 1,200 Juan Carlos Score: 7 Performance Observations:: Patient walked on level ground unassisted. Maintained O2 saturation of 97% for the entire walk but heart rate elevated to 132 and stayed in the low 130's. Patient reports she gets short of breath anytime she walks any distance. 48460 - 6 Minute Walk Nebulizer Treatment Nebulizer Treatment 60531-Yzdluexfl/MDI RX initial, or Nebulizer Subsequent Treatment Office Meds ipratropium 0.5 mg-albuterol 3 mg (2.5 mg base)/3 mL nebulization soln Performing Provider: Nicki Desir NP Performing Location: [facility] Administered by: Jenise Cruz LPN on 12/26/22 15:33 Dose Route Admin Location Dispensed Lot Number Expiration Date [facility] Photo Optics Technician 3 mL inhalation 3 mL [id number] 05/06/24 [id number] [facility] Assessment & Plan Assessment & Plan (1) Asthma: Code(s): J45.909 - Unspecified asthma, uncomplicated (2) History of mantle field radiation therapy: Code(s): Z92.3 - Personal history of irradiation (3) Pleural thickening: Code(s): J92.9 - Pleural plaque without asbestos (4) History of Hodgkin's lymphoma: Comment: (treated with radiation in 1992 - in remission) Code(s): Z85.71 - Personal history of Hodgkin lymphoma (5) Abnormal radiologic finding of lung field: Code(s): R91.8 - Other nonspecific abnormal finding of lung field Plan Rose Marie's worsening dyspnea on exertion is likely multifactorial with pulmonary etiologies and major contribution from significant cardiac history. 6MWT performed, as patient and questioning need for oxygen. Patient maintained an oxygen saturation of 97% with moderate effort. Of note, her heart rate increased, max 132. Nebulizer treatment given in office, with improvements in ability to take a deep breath and increase in air movement. Will send home with nebulizer today and send in duoneb. Patient noted no improvements with Breo, will trial another ICS/LABA. Reviewed RAST, which was negative. PFT did not reveal any significant restrictive or obstructive defects and minimal response to bronchodilators, except in small to medium airways. Lung volumes normal and DLCO decreased at 68%, likely related to prior radiation. Had long discussion regarding process for scheduling PET scan, as prior CTA from an ED evaluation, revealed a nodular density that was not on the report. An addendum was added by radiologist, Albert Liu cosigned the last note and sent a new order for a PET scan. With her new reported symptoms of weight loss, night sweats, decreased appetite and history of lymphoma, will attempt to schedule PET claire. Once scheduled, will notify patient. All questions were answered and patient is in agreement of plan. Will follow up to review results of PET and response to new ICS/LABA. Orders: Orders AMB 6 minute walk 12/26/22 I31.9 - Disease of pericardium, unspecified AMB Nebulizer Treatment 12/26/22 I31.9 - Disease of pericardium, unspecified Medications: New ipratropium-albuterol 0.5 mg-3 mg(2.5 mg base)/3 mL 3 mL inhalation Q6-8H PRN 90 mL 3RF wheezing budesonide-formoterol 80-4.5 mcg/actuation (Symbicort) 2 puffs inhalation Q12H 1 ea 6RF Coding Level of Care Code Est Pt Level 4 (17963) Diagnoses Asthma J45.909 History of mantle field radiation therapy Z92.3 Pleural thickening J92.9 History of Hodgkin's lymphoma Z85.71 Abnormal radiologic finding of lung field R91.8 CPT Codes Coding ([id number]) Nebulizer Treatment - Nebulizer Treatment, initial or subsequent: 61107- Nebulizer/MDI RX initial, or Nebulizer Subsequent Treatment ([id number])
[2022-12-26 14:09] VITALS: PULSE 101; O2SAT 97
== END 2022-12-26 14:39 | disposition home or self-care (01) ==
LOC: HO.HPSW 13:04
PROVIDERS: PCP Internal Medicine; Visit Provider Nurse Practitioner Family
DX: I31.9 Disease of pericardium, unspecified (principal)
CPT/HCPCS: 94618; 99214

== ENCOUNTER 2023-01-13 10:00 | Outpatient (REF) | payer OTHER, SELFPAY ==
[2022-10-09 07:53] VITALS: BP 114/58; BP 156/54
--- NOTE | ~2023-01-13 | PE_ITS ---
EXAMINATION: Fluorine-18 FDG PET/CT Scan CLINICAL INDICATION: Initial treatment management. Pulmonary nodule. PROCEDURE: 68 minutes following the intravenous administration of 19.4 mCi of fluorine 18 FDG, images from the base of the skull to the mid thighs were obtained using a combined PET/CT scanner with CT scan based attenuation correction. No oral contrast was administered. No intravenous contrast was administered. Transverse, coronal, sagittal, and volume reconstruction projections were obtained. The patient's blood glucose as determined by a finger stick, was 81 mg/dl immediately prior to injection. Total CT exam dose-length product 1134.77 mGy-cm * These CT images were obtained using dose optimization techniques as appropriate, variously including the following: Automated exposure control * Adjustment of mA and/or kV according to patient size (this includes techniques or standardized protocols for targeted exams where dose is matched to indication/reason for exam; i.e. extremities or head) * Use of iterative reconstruction technique COMPARISON: No previous PET/CT scan is available for comparison. CT angiogram of the chest dated 11/07/2022 is available for comparison. FINDINGS: (Slice numbers described in this report are numbered superiorly to inferiorly with slice #1 in the head) NECK AND VISUALIZED HEAD: No foci of abnormal FDG activity are noted. The distribution of FDG activity is physiological. There is no cervical lymphadenopathy. THORAX: There are multiple pleural based nodular opacities medially in the left upper lobe extending to the left lung apex. These show SUVmax 21.0, slice 56/267 and a focus in the medial aspect of the left lung apex. There are additional discrete FDG avid pleural nodules more inferiorly, and these are present in both medially and laterally in the left lung pleura and also in a small focus of mild FDG activity in a subcentimeter nodular density in the interlobar fissure showing SUVmax 3.9, slice 74/267. Abutting the lateral pleura adjacent to the lateral aspect of the left second rib an FDG avid focus shows SUVmax 5.2, slice 62/267 multiple small mildly FDG avid foci are present along the bilateral, anterolateral and posterolateral pleura of the left lower lobe and the lingula. All of the FDG avid lesions appear to be pleural-based and some pleural calcifications are present in the regions of the most intensely FDG avid foci. There are no foci of abnormal FDG activity in the right lung or suspicious right lung nodules. There are a few small subcentimeter mediastinal nodular densities with weak FDG activity medial to the most intense medial pleural FDG activity but otherwise there is no mediastinal lymphadenopathy or axillary or supraclavicular lymphadenopathy. There is no pleural or pericardial fluid or pneumothorax. ABDOMEN AND PELVIS: There is mild FDG activity of varying intensities throughout the gastrointestinal tract without a suspicious focal component and probably physiological. There is diverticulosis without evidence of diverticulitis. The hollow viscera are otherwise unremarkable. Postsurgical changes from a gastric sleeve procedure and cholecystectomy are noted. The liver, spleen, kidneys, and adrenal glands are unremarkable. The pancreas is atrophic but otherwise unremarkable. An intrauterine device is in place in the uterus is anteverted, but the pelvic organs are otherwise unremarkable. There is an FDG avid subcentimeter right external iliac lymph node, SUVmax 8.2, slice 206/267. There is an additional FDG avid right inguinal lymph node, also subcentimeter in size showing SUVmax 6.0, slice 218/267. There is no additional retroperitoneal, mesenteric, pelvic or inguinal lymphadenopathy. MUSCULOSKELETAL: There are no foci of abnormal FDG activity in the osseous structures. There are no suspicious sclerotic or lytic lesions visualized. VASCULAR: Diffuse vascular calcifications including coronary are noted. There are dense calcifications of the aortic valve in the mitral valve annulus. Reference SUVmax Levels: Mediastinal Blood Pool: 2.6, Slice 70/267. Liver: 5.0, Slice 113/267 PET/PET CT fusion skull to thigh IMPRESSION: 1. Intensely FDG avid pleural-based nodular opacities are present in the left lung, most extensively in the medial and apical aspects of the left upper lobe but additional pleural-based foci involving the lingula and left lower lobe are present. There are some associated pleural thickening and calcifications. These abnormalities are likely malignant in etiology and strongly suggest malignant mesothelioma. Biopsy is recommended, if clinically indicated. 2. Right-sided FDG avid external iliac and inguinal lymph nodes are present and these are strongly suspicious for metastases. Although small, the right inguinal lymph node may be amenable to ultrasound-guided percutaneous biopsy. 3. No additional abnormalities suspicious for other metastatic or malignant lesions are noted. 4. Vascular calcifications including coronary.
== END 2023-01-13 10:01 | disposition home or self-care (01) ==
LOC: HO.PET 10:00
PROVIDERS: PCP Internal Medicine; Visit Provider Internal Medicine Pulmonary Disease
DX: Z13.89 Encounter for screening for other disorder (principal)

== ENCOUNTER 2023-01-23 10:38 | Outpatient (REF) | payer OTHER, SELFPAY ==
[2022-10-09 07:53] VITALS: BP 114/58; BP 156/54
--- NOTE | ~2023-01-23 | US_ITS ---
CLINICAL HISTORY: History lymphoma. PET avid left pleural mass and right inguinal lymph node PROCEDURES: 1. Limited preprocedure ultrasound of the right groin. Permanent images saved in PACS. 2. Total of 4 core biopsies of the right inguinal lymph node. 3. Limited post procedure ultrasound of the right groin. Permanent images taken PACS. CLINICIANS: Shailesh Winslow PA-C Preprocedural imaging reviewed with Dr. Stewart MEDICATIONS: -Lidocaine 1% 10 mL SQ -Antibiotics: None -For additional details, please see nursing flowsheet. COMPLICATIONS: None ESTIMATED BLOOD LOSS: < 5 ml CONTRAST: None SPECIMENS: Total of 4 18-gauge biopsies of the right inguinal lymph node PROCEDURE NOTE: The procedure, risks, benefits, and alternatives were carefully explained to the patient and written informed consent was obtained. The patient was placed supine on the ultrasound table. A timeout was performed. A limited ultrasound of the right groin was performed to localize the right inguinal lymph node seen on PET scan and choose appropriate needle entry and trajectory. The patient was prepped and draped in usual sterile fashion. The skin and subcutaneous tissues were anesthetized with lidocaine. Under ultrasound guidance, a trocar was advanced to the right inguinal lymph node. A 18-gauge core biopsy device was inserted through the double wall needle, with the needle tip advanced into the lymph node. Position was confirmed with ultrasound evaluation. A total of 4 core biopsies were obtained. The needle was then removed. A post procedure ultrasound was then obtained. Specimens were sent for pathology and flow cytometry. The patient was stable after the procedure and was discharged home US/US biopsy lymph node Impression: Ultrasound-guided biopsy of right inguinal lymph node This procedure was performed by Shailesh Winslow PA-C and supervised by Dr. Stewart.
[2023-01-23] MEDS: Lidocaine HCl 1 % MPF 5 ML VIAL 10 ML SUBCUT (12:30)
== END 2023-01-23 10:39 | disposition home or self-care (01) ==
LOC: HO.US 10:38
PROVIDERS: Orthopaedic Surgery; PCP Internal Medicine; Visit Provider Nurse Practitioner Family
DX: R59.1 Generalized enlarged lymph nodes (principal)
CPT/HCPCS: 36415; 38505; 76942; 88184; 88185; 88305; 88341; 88342

== ENCOUNTER → 2023-01-23 10:40 | Outpatient (BNV) | payer OTHER, SELFPAY ==
[2022-10-09 07:53] VITALS: BP 114/58; BP 156/54
== END ==
PROVIDERS: PCP Internal Medicine; Visit Provider Radiology Diagnostic Radiology
DX: R59.1 Generalized enlarged lymph nodes (principal)
CPT/HCPCS: 38505; 76942

== ENCOUNTER 2023-02-11 11:58 | Day surgery (SDC) | payer OTHER, SELFPAY ==
[2022-10-09 07:53] VITALS: BP 114/58; BP 156/54
--- NOTE | ~2023-02-11 | CT_ITS ---
History of Hodgkin's lymphoma. New left pleural-based mass. PROCEDURES: 1. Limited preprocedure CT of the chest. Permanent images saved in PACS. 2. A total of 6 x 20 gauge cores of the left pleural base mass 3. Limited post procedure CT of the chest. Permanent images saved in PACS. CLINICIANS: Shailesh Winslow PA-C Preprocedural imaging reviewed with Dr. Vallejo MEDICATIONS: -Versed 1.5 mg, Fentanyl 75 mcg, and lidocaine 1% 10 mL SQ -Antibiotics: None -For additional details, please see nursing flowsheet. COMPLICATIONS: None ESTIMATED BLOOD LOSS: < 5 ml CONTRAST: None SPECIMENS: 6 x 20 gauge core biopsies. MODERATE SEDATION TIME: 29 min PROCEDURE NOTE: The procedure, risks, benefits, and alternatives were carefully explained to the patient and written informed consent was obtained. The patient was placed prone on the CT table. A timeout was performed. A limited CT of the chest was performed to localize the left pleural mass and choose appropriate needle entry and trajectory. The patient was prepped and draped in usual sterile fashion. The skin, and deeper tissues were anesthetized with lidocaine. Under CT guidance, a 19-gauge trocar biopsy needle was advanced into the left pleural based mass. A total of 6 x 20-gauge core biopsies were obtained and placed in formalin. A touch prep was performed, which was deemed lesional material by the pathologist. The needle was removed. A limited postprocedure CT of the chest was performed, which did not demonstrate any bleeding or pneumothorax. A dry dressing was applied and secured with Tegaderm. There were no immediate complications. The patient was stable after the procedure and was transferred to the post anesthesia care unit. The procedure was done under moderate sedation with a dedicated nurse for monitoring of vital signs. CT/CT biopsy lung LT Impression: CT-guided biopsy of left pleural mass This procedure was performed by Shailesh Winslow PA-C and supervised by Dr. Vallejo.
[2023-02-11 12:35] VITALS: BMI 39.3
[2023-02-11 13:02] LABS: MANUAL DIFF FLAG NO
[2023-02-11 13:07] LABS: Basophils Absolute Auto 0.1 X10*3/uL (0.0-0.2); Basophils Percent Auto 0.7 % (0-2); Eosinophils Absolute Auto 0.2 X10*3/uL (0.0-0.4); Hematocrit 38.3 % (37.0-47.0); Hemoglobin 12.7 g/dl (12.0-16.0); Imm Gran Abs Auto 0.01 X10*3/uL (0.00-0.03); Imm Gran Pct Auto 0.1 % (0.0-0.4); Lymphocytes Absolute Auto 2.6 X10*3/uL (1.2-4.9); Lymphocytes Percent Auto 35.2 % (20-40); Mean Corpuscular HGB Conc 33.2 g/dl (31.0-35.0); Mean Corpuscular Hemoglobin 29.2 pg (27.0-33.0); Mean Platelet Volume 11.8 fL (9.4-12.3); Monocytes Percent Auto 13.7 % (2-11); Neutrophils Absolute Auto 3.5 x10*3/uL (2.0-8.3); Neutrophils Percent Auto 47.3 % (45-73); Platelet Count 272 X10*3/uL (160-400); Red Blood Count 4.35 X10*6/uL (4.20-5.50); Red Cell Distribution Width 15.7 % (11.0-16.0); White Blood Count 7.5 X10*3/uL (4.8-10.8)
[2023-02-11 13:13] LABS: Prothrombin Time 11.7 SEC (11.1-13.3)
[2023-02-11 13:16] LABS: Partial Thromboplastin Time 29.8 SEC (26.0-36.4)
[2023-02-11 14:30] VITALS: BP 126/67; PULSE 70; RESP 16; TEMP 36.9; O2SAT 96
[2023-02-11 14:45] VITALS: BP 132/45; PULSE 68; RESP 16; O2SAT 99
[2023-02-11 15:00] VITALS: BP 125/54; PULSE 72; RESP 16; O2SAT 99
[2023-02-11 15:15] VITALS: BP 128/60; PULSE 74; RESP 16; TEMP 36.9; O2SAT 99
== END 2023-02-11 15:30 | disposition home or self-care (01) ==
PROVIDERS: Physician Assistant Surgical; PCP Internal Medicine; Visit Provider Nurse Practitioner Family
DX: R91.8 Other nonspecific abnormal finding of lung field (principal); J90 Pleural effusion, not elsewhere classified; J92.9 Pleural plaque without asbestos; J45.909 Unspecified asthma, uncomplicated; R06.09 Other forms of dyspnea; I25.10 Atherosclerotic heart disease of native coronary artery without angina pectoris; Z95.5 Presence of coronary angioplasty implant and graft; R61 Generalized hyperhidrosis; Z85.71 Personal history of Hodgkin lymphoma; Z92.3 Personal history of irradiation; I05.0 Rheumatic mitral stenosis; I35.0 Nonrheumatic aortic (valve) stenosis; Z79.51 Long term (current) use of inhaled steroids; Z79.899 Other long term (current) drug therapy; Z79.01 Long term (current) use of anticoagulants; Z88.2 Allergy status to sulfonamides
CPT/HCPCS: 32408; 36415; 85025; 85610; 85730; 88305; 99152; 99153; J2250; J2310; J3010

== ENCOUNTER → 2023-02-11 12:42 | Outpatient (BNV) | payer OTHER, SELFPAY ==
[2022-10-09 07:53] VITALS: BP 114/58; BP 156/54
== END ==
PROVIDERS: PCP Internal Medicine; Visit Provider Student in an Organized Health Care Education/Training Program
DX: R91.8 Other nonspecific abnormal finding of lung field (principal)
CPT/HCPCS: 32408

== ENCOUNTER 2023-02-23 09:11 | Outpatient (AMB) | payer OTHER, SELFPAY ==
[2022-10-09 07:53] VITALS: BP 114/58; BP 156/54
--- NOTE | 2023-02-23 09:16 | MHC.OFFVIS ---
Intake Vital Signs 02/23/23 09:18 Height 5 ft 2 in Weight 211 lb 10.3 oz BMI 38.7 BP 143/63 H Blood Pressure Location Lt brachial Position Sitting Pulse 84 Intake Visit Reasons: 6 mnth follow up Intake Note: Rose Marie presents in the office as a 6 month follow up. CC: She states that she is not having any concerns with her stomach at the moment for once she states normally it is her stomach that is the issue. 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 She had MRe with transmural enhancement of loop of small bowel, fecal lactoferrin was neg Colonoscopy 07/30/21: polyps internal hemorrhoids mild ileitis BX with tubular adenoma, other bx were neg EGD: 01/2022 Findings: Larynx:normal Esophagus: GE junction at 38? cm, diaphragm hiatus at 38 cm, partial schatzki ring, bx taken from GEJ and random esophagus Stomach: Patchy gastric erythema, altered anatomy with L shaped stomach with hx of sleeve gastrectomy. Biopsies were obtained. Grade 2 flap valve on retroflexed examination of the cardia. Duodenum: Normal bulb and descending duodenum, bx taken Intervention: Biopsies as noted above Impression/Findings: partial schatzki gastritis MRe: 06/2022: no active inflammation She did see Cardiology, and had stent placed after diagnostic cath, ECHO with she had bx of lung and LN due to sx and path is non diagnostic PET scan 01/23/23 physiological uptake in Gi tract, uptake in lungs--left pleura INTERIM: waiting to see Dr Washington for furhter discussion about her lung issues she has no abdominal pain I had changed her to apriso due to bloating and diarrhea with pentasa and she feels this normal stools, no blood or mucous fair appetite due to stress LFT raised but commenced on colchicine for pericarditis EXAM: GENERAL: The patient is well developed and nontoxic. VITAL SIGNS:see workflow HEENT: Nonicteric sclerae, PERRLA, EOMI. Oropharynx clear. Moist mucous membranes. Conjunctivae appear well perfused. No thyroid mass. CHEST: Chest wall is nontender. HEART: Regular rate and rhythm without murmurs. LUNGS: Clear to auscultation bilaterally. ABDOMEN: Soft, positive bowel sounds, nontender, no organomegaly.no flank tenderness SKIN: No rash, no excessive bruising, petechiae, or purpura. NEUROLOGIC: Cranial nerves II-XII intact without motor/sensory deficit. A/P: 1/ Abn LFt, raise dlak phos with ps macro form 2/ GERD--controlled 3/ abn bowel habit, long standing, Imaging and colonoscopy with enteritis, ileitis--on pentasa with good results 4/ hx of polyps 5/ abn shaped stomach from sleeve gastrectomy PLAN: 1/ cont with apriso 2/ recheck LFT< colchcine was just reduced , maybe recent contributor to her elevation ddx: infiltrative disease, e.g lymphoma ? [facility], [facility] Medical History (Updated 01/22/23 @ 11:10 by Nicki Desir NP) History of Hodgkin's lymphoma (~1992) History of mantle field radiation therapy (~1992) Radiation-induced heart disease CAD (coronary artery disease) Stented coronary artery (~2022) Aortic stenosis Mitral stenosis Hyperlipidemia Hypothyroid Asthma Environmental allergies Obesity Anxiety and depression Hepatic steatosis GERD (gastroesophageal reflux disease) Tubular adenoma of colon Herpes History of shingles Surgical History (Updated 01/15/23 @ 08:16 by Gloria Mahmood PA-C) History of heart artery stent (~2022) History of thoracentesis (~2018) History of sleeve gastrectomy (~2017) History of cholecystectomy History of repair of hiatal hernia (~2017) History of colonoscopy History of esophagogastroduodenoscopy (EGD) History of ankle surgery History of arthroscopy of right shoulder History of section Family History Mother Colon cancer Father Hypertension Prostate cancer Son Diabetes Daughter Autism Social History (Updated 12/26/22 @ 13:19 by Jenise Cruz LPN) Alcohol intake: current Alcohol intake frequency: holidays/special occasions only Patient Tobacco Use Status: Never used Tobacco 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: employed 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 Panel Today K75.81 - Nonalcoholic steatohepatitis (BENJAMIN), R94.5 - Abnormal results of liver function studies TSH reflex Free T4 Today R94.5 - Abnormal results of liver function studies US abdomen complete Today R94.5 - Abnormal results of liver function studies Coding Level of Care Code Est Pt Level 3 (62130) Diagnoses Abnormal LFTs R94.5
[2023-02-23 09:18] VITALS: BP 143/63; PULSE 84; BMI 38.7
== END 2023-02-23 10:52 | disposition home or self-care (01) ==
PROVIDERS: PCP Internal Medicine; Visit Provider Internal Medicine Gastroenterology
DX: R94.5 Abnormal results of liver function studies (principal)
CPT/HCPCS: 99213

== ENCOUNTER 2023-02-23 09:11 | Outpatient (REF) | payer OTHER, SELFPAY ==
[2022-10-09 07:53] VITALS: BP 114/58; BP 156/54
[2023-02-23 12:06] LABS: Erythrocyte Sedimentation Rate 8 MM/HR (0-20)
[2023-02-23 12:34] LABS: Alanine Aminotransferase 26 U/L (0-31); Albumin Level 4.3 g/dL (3.5-5.0); Alkaline Phosphatase 169 U/L (39-117); Anion Gap 17 (12-20); Aspartate Amino Transferase 37 U/L (5-31); Bilirubin Total 1.4 mg/dL (0.0-1.0); Blood Urea Nitrogen 11 mg/dL (9-16); Calcium 9.5 mg/dL (8.4-10.2); Carbon Dioxide 24 mmol/L (22-29); Chloride 106 mmol/L (96-108); Estimated Glomerular Filt Rate > 60; Glucose Random 103 mg/dL (60-115); Potassium 3.6 mmol/L (3.3-5.1); Sodium 143 mmol/L (135-145); Total Protein 7.1 g/dL (6.5-8.0)
[2023-02-23 12:37] LABS: TSH reflex Free T4 0.06 uIU/mL (0.32-4.0)
[2023-02-23 14:01] LABS: Free T4 (Free Thyroxine) 1.17 ng/dL (0.71-1.85)
[2023-02-24 14:48] LABS: CRP High Sensitivity 1.2 mg/L
== END 2023-02-23 09:12 | disposition home or self-care (01) ==
LOC: HO.LAB 09:11
PROVIDERS: Nurse Practitioner Family; PCP Internal Medicine; Visit Provider Internal Medicine Gastroenterology
DX: K75.81 Nonalcoholic steatohepatitis (NASH) (principal); I31.9 Disease of pericardium, unspecified; R94.5 Abnormal results of liver function studies
CPT/HCPCS: 36415; 80053; 84439; 84443; 85652; 86141

== ENCOUNTER 2023-03-03 13:43 | Outpatient (AMB) | payer OTHER, SELFPAY ==
[2022-10-09 07:53] VITALS: BP 114/58; BP 156/54
--- NOTE | 2023-03-03 13:57 | MHC.OFFVIS ---
Intake Vital Signs 03/03/23 14:01 Height 5 ft 2 in Weight 220 lb BMI 40.2 BP 147/67 H Blood Pressure Location Rt brachial Position Sitting Pulse 90 Intake Visit Reasons: Pulmonary nodule Intake Note: Patient referred by Nicki Desir MEDICAL LAB TECHNOLOGIST for pulmonary nodule. Patient had CT guided bx of Lt pleural mass on 02-11-23. Patient c/o: shortness of breath. Curriculum Director Required: No Accompanied by: Spouse Allergies oxycodone [From PERCOCET] Allergy (Intermediate, Verified 03/03/23 13:58) HIVES Sulfa (Sulfonamide Antibiotics) [SULFA (SULFONAMIDE ANTIBIOTICS)] Allergy (Intermediate, Verified 03/03/23 13:58) HIVES diatrizoate meglumine [Gastrografin] Allergy (Unknown, Verified 03/03/23 13:58) red rash HPI HPI Comments History of Present Illness Details Patient presents with her . Patient has a very intricate and complex past medical and surgical history. In summary, she had a lymphoma years ago and received chemotherapy and chest radiation. Patient had been in remission. She now presents with symptoms of night sweats, fever, and chills. Patient has had extensive workup after radiographic studies demonstrated a right lymph node suspicious on PET scan as well as a left upper lobe/apical suspicious area. Both of these biopsies by intervention Radiology were nondiagnostic. As noted above, chart was reviewed patient evaluated. Patient was also presented at the multidisciplinary [facility] recently. Patient also had a history of left thoracoscopic pleurodesis for persistent pneumothorax in the past. [facility] Medical History History of Hodgkin's lymphoma (~1992) History of mantle field radiation therapy (~1992) Radiation-induced heart disease CAD (coronary artery disease) Stented coronary artery (~2022) Aortic stenosis Mitral stenosis Hyperlipidemia Hypothyroid Asthma Environmental allergies Obesity Anxiety and depression Hepatic steatosis GERD (gastroesophageal reflux disease) Tubular adenoma of colon Herpes History of shingles Surgical History History of heart artery stent (~2022) History of thoracentesis (~2018) History of sleeve gastrectomy (~2017) History of cholecystectomy History of repair of hiatal hernia (~2017) History of colonoscopy History of esophagogastroduodenoscopy (EGD) History of ankle surgery History of arthroscopy of right shoulder History of section Family History Mother Colon cancer Father Hypertension Prostate cancer Son Diabetes Daughter Autism Social History Alcohol intake: current Alcohol intake frequency: holidays/special occasions only Patient Tobacco Use Status: Never used Tobacco 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: employed 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 Patient is somewhat corpulent. There was a very deep small right inguinal lymph node felt to be palpable by me. Measured approximately 1 x 1 cm. . Contralateral left groin negative. Chest Other: Chest breath sounds bilaterally, HS 1 and 2. Left-sided thoracoscopy scars. Left neck scar from biopsy of lymph node in the distant past. GI Other: Abdomen corpulent, soft, benign Assessment & Plan Assessment & Plan (1) Lymphadenopathy: Code(s): R59.1 - Generalized enlarged lymph nodes (2) Pulmonary nodule: Code(s): R91.1 - Solitary pulmonary nodule Plan Very lengthy discussion was had with the patient and her regarding therapeutic options. These included excisional biopsy of right groin lymph node and sending this for frozen section. If this proves to be diagnostic, procedure will be completed. If this is nondiagnostic, patient will then undergo left open mini thoracotomy for biopsy of the left apical lung process. Because of the patient's prior surgery which included pleurodesis as well as radiation to the chest cavity, I do not think that thorascopic approach would not be amenable. I also do not think that 1 lung anesthesia can be obtained considering all the surgeries and pleurodesis she has had in apical lung process the hemithorax. My current recommendation is for left open biopsy of the left apical ?process?. Risks, benefits, and alternatives of procedure reviewed the patient included but not limited to bleeding, infection, non diagnosis, numbness, pain, scarring the patient wished to proceed. All questions were answered. Arrangements will be made for this. Coding Level of Care Code New Pt Level 5 (83535) Diagnoses Lymphadenopathy R59.1 Pulmonary nodule R91.1
[2023-03-03 14:01] VITALS: BP 147/67; PULSE 90; BMI 40.2
== END 2023-03-03 14:16 | disposition home or self-care (01) ==
PROVIDERS: PCP Internal Medicine; Referring Provider Nurse Practitioner Family; Visit Provider Surgery
DX: R59.1 Generalized enlarged lymph nodes (principal); R91.1 Solitary pulmonary nodule
CPT/HCPCS: 99204

== ENCOUNTER → 2023-03-03 13:43 | Outpatient (BNVA) | payer OTHER, SELFPAY ==
[2022-10-09 07:53] VITALS: BP 114/58; BP 156/54
== END ==
PROVIDERS: PCP Internal Medicine; Referring Provider Nurse Practitioner Family; Visit Provider Surgery

== ENCOUNTER 2023-03-12 11:11 | Inpatient (IN) | payer OTHER, SELFPAY ==
[2022-10-09 07:53] VITALS: BP 114/58; BP 156/54
[2023-03-06 10:26] VITALS: BMI 38.4
--- NOTE | 2023-03-11 08:45 | HO.ANESPROP2 ---
Documented by User: Kayla Amaya NP 03/11/23 08:58 HPI - Anesthesia Eval Consult details Narrative: 57yo F for Left Thoracotomy, with lung biopsy with DB lumen tube, Right Lymph Node Biopsy of groin Radiation induced heart disease (1992 for hodgkin's lymphoma). Follows [facility] cardiology. Cleared for surgery and ok to hold DAPT 5 days preop. s/p stent 08/2022 [facility] Active Problems Active Problems: All Active Problems (Updated 01/15/23 @ 08:16 by Gloria Mahmood PA-C) Lymphadenopathy (Acute) Abnormal radiologic finding of lung field (Acute) Pulmonary nodule (Acute) Pericarditis (Acute) Abnormal TSH (Acute) Chest discomfort (Acute) Chest pain (Acute) Pleural thickening (Acute) S/P cardiac catheterization (Acute ~2022) Ileitis (Acute) Tarsal tunnel syndrome, left lower limb (Acute) Low vitamin B12 level (Acute) Abnormal LFTs (Acute) History of Hodgkin's lymphoma (Acute ~1992) History of mantle field radiation therapy (Acute ~1992) Radiation-induced heart disease (Acute) CAD (coronary artery disease) (Acute) Stented coronary artery (Acute ~2022) Mitral stenosis (Acute) Aortic stenosis (Acute) Hyperlipidemia (Acute) Asthma (Acute) Environmental allergies (Acute) Hypothyroid (Acute) Tubular adenoma of colon (Acute) Anxiety and depression (Acute) Obesity (Acute) Past Medical History Medical History History of mantle field radiation therapy (~1992) Environmental allergies History of shingles CAD (coronary artery disease) Stented coronary artery (~2022) Hyperlipidemia Obesity Mitral stenosis Anxiety and depression Tubular adenoma of colon History of Hodgkin's lymphoma (~1992) Radiation-induced heart disease Aortic stenosis Asthma Hypothyroid Hepatic steatosis GERD (gastroesophageal reflux disease) Herpes Family History Family History Mother Colon cancer Father Hypertension Prostate cancer Son Diabetes Daughter Autism Family history of problems with anesthesia: No Surgical History Surgical History History of lung biopsy (02/11/23) History of repair of hiatal hernia (~2017) History of thoracentesis (~2018) History of ankle surgery History of section History of colonoscopy History of heart artery stent (~2022) History of arthroscopy of right shoulder History of sleeve gastrectomy (~2017) History of esophagogastroduodenoscopy (EGD) History of cholecystectomy History of Problems with Anesthesia: No Social History Social History Household Members: Family Housing: House Are you a primary pet care associate to a significant other at home: No Do you presently have visiting nurse or other home services: No Alcohol intake: current Alcohol intake frequency: holidays/special occasions only Patient Tobacco Use Status: Never used Tobacco 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 Allergies Allergy/AdvReac Type Severity Reaction Status Date / Time oxycodone [From PERCOCET] Allergy Intermediate HIVES Verified 03/03/23 13:58 Sulfa (Sulfonamide Allergy Intermediate HIVES Verified 03/03/23 13:58 Antibiotics) [SULFA (SULFONAMIDE ANTIBIOTICS)] diatrizoate meglumine Allergy Unknown red rash Verified 03/03/23 13:58 [Gastrografin] Home Medications Medication Instructions Recorded Confirmed Last Taken Type morphine 15 mg immediate release 15 mg PO BID PRN Pain 02/08/20 03/05/23 Unknown History tablet pantoprazole 40 mg tablet,delayed 40 mg PO DAILY 02/08/20 03/05/23 Unknown History release sertraline 100 mg tablet 125 mg PO DAILY 02/08/20 03/05/23 Unknown History lorazepam 0.5 mg tablet 0.5 mg PO BID PRN anxiety 08/19/21 03/05/23 Unknown History albuterol sulfate 90 mcg/actuation 2 puff inhalation DAILY PRN asthma 04/21/22 03/05/23 Unknown History aerosol inhaler nortriptyline 10 mg capsule 10 mg PO BEDTIME 07/08/22 03/05/23 Unknown History ticagrelor 90 mg tablet (Brilinta) 90 mg PO BID 08/25/22 03/12/23 03/06/23 History ubrogepant 50 mg tablet (Ubrelvy) 50 mg PO DAILY PRN headaches 08/25/22 03/05/23 Unknown History meclizine 12.5 mg tablet 12.5 mg PO DAILY PRN Vertigo 09/04/22 03/05/23 Unknown History cholecalciferol (vitamin D3) 50 50 mcg PO DAILY 12/01/22 03/05/23 Unknown History mcg (2,000 unit) capsule trazodone 50 mg tablet 100 mg PO BEDTIME PRN Insomnia 02/23/23 03/05/23 Unknown History levothyroxine 125 mcg tablet 125 mcg PO DAILY 03/06/23 03/06/23 Unknown History (Levoxyl) Exam Height,Weight and Vital Signs: Height 5 ft 2 in Weight 95.254 kg Pertinent Lab Results Pertinent Lab Results: Laboratory Tests 02/11/23 02/23/23 12:56 10:24 WBC 7.5 Hgb 12.7 Hct 38.3 Plt Count 272 Sodium 143 Potassium 3.6 Chloride 106 Carbon Dioxide 24 BUN 11 Creatinine 0.86 Narrative Narrative: EKG 12/2022 Vent. Rate : 100 BPM Atrial Rate : 100 BPM P-R Int : 140 ms QRS Dur : 094 ms QT Int : 328 ms P-R-T Axes : 037 -33 051 degrees QTc Int : 423 ms Normal sinus rhythm Left anterior fascicular block Left ventricular hypertrophy with repolarization abnormality ( R in aVL , Jer product , Romhilt-[place] ) Abnormal ECG When compared with ECG of 07-NOV-2022 14:53, Heart rate has increased NM cardiolite stress test 12/2022 IMPRESSION: 1. Myocardial perfusion imaging study shows normal myocardial perfusion. 2. Gated LVEF is 69% during stress and 67% during rest. 3. Transient ischemic dilatation not present. EKG component of the test reported separately. ECHO 11/2022 Conclusions: - 1. Normal LV systolic function with LVEF of 60 65% with no regional wall motion abnormality with elevated filling pressures 2. Normal RV systolic pressure 3. No gross pericardial effusion Cardiac cath 08/21/2022 Left main 20% stenosis, proximal RCA 80% stenosis angioplasty and KAMRYN placed, no significant gradient on pullback across aortic valve, wedge 10, PA 27/9, no obvious mitral stenosis PFT 12/2022 Forced vital capacity 101%, FEV1 96%, FEV1/FVC ratio 76. [id number] 79%, MVV 104%. Post bronchodilator therapy, there is no significant change. Lung volumes, total lung capacity is 85%. Residual volume 63%. Diffusion capacity is 68% CONCLUSION: There is a borderline restrictive pulmonary disorder. No obstructive airway disorder. No response to bronchodilator therapy. Clinical correlation recommended. Assessment and Plan Assessment Anesthesia Assessment: Chart Reviewed Final Anesthetic Review Family History of Problems with Anesthesia: No History of Problems with Anesthesia: No Documented by User: Jono Gillespie MD 03/12/23 08:07 [facility] Past Medical History Medical History History of mantle field radiation therapy (~1992) Environmental allergies History of shingles CAD (coronary artery disease) Stented coronary artery (~2022) Hyperlipidemia Obesity Mitral stenosis Anxiety and depression Tubular adenoma of colon History of Hodgkin's lymphoma (~1992) Radiation-induced heart disease Aortic stenosis Asthma Hypothyroid Hepatic steatosis GERD (gastroesophageal reflux disease) Herpes Family History Family History Mother Colon cancer Father Hypertension Prostate cancer Son Diabetes Daughter Autism Surgical History Surgical History History of lung biopsy (02/11/23) History of repair of hiatal hernia (~2017) History of thoracentesis (~2018) History of ankle surgery History of section History of colonoscopy History of heart artery stent (~2022) History of arthroscopy of right shoulder History of sleeve gastrectomy (~2017) History of esophagogastroduodenoscopy (EGD) History of cholecystectomy Social History Social History Household Members: Family Housing: House Are you a primary pet care associate to a significant other at home: No Do you presently have visiting nurse or other home services: No Alcohol intake: current Alcohol intake frequency: holidays/special occasions only Patient Tobacco Use Status: Never used Tobacco 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 Allergies Allergy/AdvReac Type Severity Reaction Status Date / Time oxycodone [From PERCOCET] Allergy Intermediate HIVES Verified 03/03/23 13:58 Sulfa (Sulfonamide Allergy Intermediate HIVES Verified 03/03/23 13:58 Antibiotics) [SULFA (SULFONAMIDE ANTIBIOTICS)] diatrizoate meglumine Allergy Unknown red rash Verified 03/03/23 13:58 [Gastrografin] Home Medications Medication Instructions Recorded Confirmed Last Taken Type morphine 15 mg immediate release 15 mg PO BID PRN Pain 02/08/20 03/05/23 Unknown History tablet pantoprazole 40 mg tablet,delayed 40 mg PO DAILY 02/08/20 03/05/23 Unknown History release sertraline 100 mg tablet 125 mg PO DAILY 02/08/20 03/05/23 Unknown History lorazepam 0.5 mg tablet 0.5 mg PO BID PRN anxiety 08/19/21 03/05/23 Unknown History albuterol sulfate 90 mcg/actuation 2 puff inhalation DAILY PRN asthma 04/21/22 03/05/23 Unknown History aerosol inhaler nortriptyline 10 mg capsule 10 mg PO BEDTIME 07/08/22 03/05/23 Unknown History ticagrelor 90 mg tablet (Brilinta) 90 mg PO BID 08/25/22 03/12/23 03/06/23 History ubrogepant 50 mg tablet (Ubrelvy) 50 mg PO DAILY PRN headaches 08/25/22 03/05/23 Unknown History meclizine 12.5 mg tablet 12.5 mg PO DAILY PRN Vertigo 09/04/22 03/05/23 Unknown History cholecalciferol (vitamin D3) 50 50 mcg PO DAILY 12/01/22 03/05/23 Unknown History mcg (2,000 unit) capsule trazodone 50 mg tablet 100 mg PO BEDTIME PRN Insomnia 02/23/23 03/05/23 Unknown History levothyroxine 125 mcg tablet 125 mcg PO DAILY 03/06/23 03/06/23 Unknown History (Levoxyl) Exam Airway Mallampati Class: II TM Dist: >3cm Neck ROM: Full Loose/Missing/Broken Teeth: Yes (all lower teeth chipped, manyotherschipped globally) Heart: rrr +s1s2 Lungs: cta b/l Assessment and Plan Assessment Anesthesia Assessment: Anesthesia Plan Discussed and PAT Visit Final Anesthetic Review NPO: Yes ASA Class: III Final Preanesthetic Review: No Changes in Pt Med Stat, Meds/Allgs Chart Reviewed, Consent Obtained/Reviewed and Anes Risks/Benef Reviewed Patient Risk: Intermediate Procedure Risk: Intermediate Assessment/Block/Sedation in SS: Assess/Block/Sedation-SS Anesthetic Plan Anesthetic Plan: GA (double lumen tube) and Agree w/ Assess. and Plan Disposition: Standard PACU
--- NOTE | 2023-03-11 11:41 | MHC.SHP ---
Pre-Procedural Eval Section A Date of Service: 03/11/23 The patient is an INPATIENT: No Changes since office visit: No Cold of Flu in the past 2 weeks, No New Medical Problems, No Changes in Medication and No Patient answered all questions The History & Physical has been completed within 30 days and I have reviewed it.: Yes Section B Chief Complaint: Generalized enlarged lymph nodes Allergies: Allergies Allergy/AdvReac Type Severity Reaction Status Date / Time oxycodone [From PERCOCET] Allergy Intermediate HIVES Verified 03/03/23 13:58 Sulfa (Sulfonamide Allergy Intermediate HIVES Verified 03/03/23 13:58 Antibiotics) [SULFA (SULFONAMIDE ANTIBIOTICS)] diatrizoate meglumine Allergy Unknown red rash Verified 03/03/23 13:58 [Gastrografin] Plan I have reviewed the history and physical and performed a pertinent physical examination on my patient. No changes have occurred unless specified. Time Spent With Patient Time: Total time managing care of this patient today ____ minutes.
[2023-03-12] VITALS (18 sets, daily range): BP systolic 101–197; BP diastolic 52–81; PULSE 75–103; RESP 12–20; TEMP 36.1–36.6; O2SAT 93–100; BMI 39.9
--- NOTE | ~2023-03-12 | XR_ITS ---
EXAMINATION: XR CHEST CLINICAL INFORMATION: Status post chest tube removal COMPARISON: AP upright portable view same day, 8:39 AM TECHNIQUE: AP upright portable view of the chest was obtained. 12:42 PM FINDINGS: The patient is rotated. Interval removal of 2 left-sided thoracostomy tubes. There appears to be small tracts of air along the prior positions of the thoracostomy tubes. Small left basilar hydropneumothorax is seen. Surgical clips and anastomotic sutures are seen in the left upper chest. The appearance of left lateral pleural thickening and/or pleural effusion with hazy opacity projecting over the left upper lobe. The right lung is clear. The cardiomediastinal silhouette is stable. No acute osseous abnormality. Multiple surgical clips are seen in the left upper quadrant and a few surgical clips are again seen in the right upper quadrant. Slight decrease in subcutaneous emphysema. XR/XR chest 1V IMPRESSION: 1. Interval removal of 2 left-sided thoracostomy tubes with small tracts of air along the prior positions of the thoracostomy tubes. 2. Small left basilar hydropneumothorax is seen. 3. Hazy opacity projecting over the left upper lobe. This may be due to pleural thickening and/or pleural effusion and possibly underlying atelectasis.
--- NOTE | 2023-03-12 11:42 | PHA.MEDREC ---
Pharmacy Consult ? Medication Reconciliation Pharmacy has completed the medication reconciliation. Reviewed med rec done by nursing
--- NOTE | 2023-03-12 14:00 | HO.PM.IMCN ---
History of Present Illness Data of Consult Service Date: 03/12/23 Primary Care Provider: Huong Johnson MD [facility] Reason for consult: Medical management Patient is a 57-year-old female with a PMH significant for moderate persistent asthma, hx of Hodgkin's lymphoma 30 years ago s/p mantle radiation and chemotherapy, radiation-induced CAD s/p stenting, aortic stenosis, mitral regurgitation, hypothyroidism, hx of bariatric surgery, hx of pericarditis, hx of recurrent pleural effusions, and hx of pleurodesis who was admitted under general surgery services for elective thoracotomy and lung biopsy. Pt initially referred to General Surgery after PET scan revealed a suspicious right lymph node as well as area in left upper lobe. Biopsies by intervention Radiology were nondiagnostic so pt underwent right groin lymph node excision and left open mini thoracotomy for biopsy of the left apical lung process. Hospitalist consult for medical management. Pt is seen in PACU and is somnolent but arousable, though barely speaking above a whisper and falling back asleep during interview. Pt complains of left-sided chest pain and difficulty breathing but otherwise denies any other acute complaints. Review of Systems Review of Systems: Limited d/t pt's somnolence Complains of left-sided chest pain and difficulty breathing [facility] Medical History History of mantle field radiation therapy (~1992) Environmental allergies History of shingles CAD (coronary artery disease) Stented coronary artery (~2022) Hyperlipidemia Obesity Mitral stenosis Anxiety and depression Tubular adenoma of colon History of Hodgkin's lymphoma (~1992) Radiation-induced heart disease Aortic stenosis Asthma Hypothyroid Hepatic steatosis GERD (gastroesophageal reflux disease) Herpes Family History Mother Colon cancer Father Hypertension Prostate cancer Son Diabetes Daughter Autism Surgical History History of lung biopsy (02/11/23) History of repair of hiatal hernia (~2017) History of thoracentesis (~2018) History of ankle surgery History of section History of colonoscopy History of heart artery stent (~2022) History of arthroscopy of right shoulder History of sleeve gastrectomy (~2017) History of esophagogastroduodenoscopy (EGD) History of cholecystectomy Social History Household Members: Spouse and Family Housing: House Are you a primary career development facilitator to a significant other at home: No Do you presently have visiting nurse or other home services: No Alcohol intake: current Alcohol intake frequency: holidays/special occasions only Patient Tobacco Use Status: Never used Tobacco Smoked in Last 30 Days: No e-Cigarette/Vaping Use: Never Used Patient Interested in Nicotine Replacement: No Patient Given Instructions on How to Stop Smoking: No Use of substances other than those prescribed or required for medical reasons: Yes Substance Use Type: Marijuana Substance Use Type Other:: marijuana edibles on occasion for sleep Substance Use Frequency: Occasionally Last Used Substance: Unknown Last Used Substance Other:: edibles on occasion to help sleep Currently Displaying Signs/Symptoms of Drug Intoxication Withdrawal: No Any prior treatment program specific to substance use: No Have you been hit, kicked, punched, or otherwise hurt by someone within the past year? If so, by whom?: No Do you feel safe in your current relationship?: Yes Is there a partner from a previous relationship who is making you feel unsafe now?: No Are you made to feel afraid or neglected: No Spiritual Healthcare Practices: Taoism Are you DNR?: No Advance Directives: No Advance Directives Information Provided: Yes Advance Directives on File: No Healthcare Proxy: No Do you have thoughts of harming others: None Do you have a plan to hurt others: No Plan Recently lost weight without trying: Yes How much weight loss: 2-13 pounds Eating poorly because of decreased appetite: Yes Nutrition screen score: 4 Nutrition Risks: No Nutritional Risk Patient : No FDLMP: menopaused at age 54 : No Poor oral hygiene: No 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 Allergies Allergy/AdvReac Type Severity Reaction Status Date / Time oxycodone [From PERCOCET] Allergy Intermediate HIVES Verified 03/03/23 13:58 Sulfa (Sulfonamide Allergy Intermediate HIVES Verified 03/03/23 13:58 Antibiotics) [SULFA (SULFONAMIDE ANTIBIOTICS)] diatrizoate meglumine Allergy Unknown red rash Verified 03/03/23 13:58 [Gastrografin] Active Medications: Current Medications Acetaminophen (Acetaminophen 325 Mg Tablet) 650 mg PO ONCE PRN PRN Reason: Pain, Mild (Pain Scale 1-3) Albuterol Sulfate (Albuterol Sulfate (0.083%) 2.5 Mg/3 Ml Vial.Neb) 2.5 mg INHALE ONCE PRN PRN Reason: Shortness of Breath/Wheezing Albuterol Sulfate (Albuterol Sulfate 90 Mcg 8 Gm Inhaler) 2 puff INHALE DAILY PRN PRN Reason: asthma Albuterol/Ipratropium (Albuterol/Iprat 2.5/0.5mg 3 Ml Ampul.Neb) 3 ml INHALE Q6H PRN PRN Reason: wheezing Aspirin (Aspirin Enteric Coated 81 Mg Tablet.Dr) 81 mg PO DAILY [facility] Atorvastatin Calcium (Atorvastatin Calcium 40 Mg Tablet) 40 mg PO DAILY [facility] Docusate Sodium (Docusate Sodium 100 Mg Capsule) 100 mg PO BID [facility] Fentanyl (Fentanyl Citrate/Pf 100 Mcg/2 Ml Vial) 50 mcg IVPUSH Q5M PRN; Protocol PRN Reason: Pain, Severe (Pain Scale 7-10) Fluticasone/Vilanterol (Fluticasone/Vilanterol 100/25 Blst.W.Dev) 1 puff INHALE RDAILY [facility] Heparin Sodium (Porcine) (Heparin Sodium,Porcine 5,000 Unit/Ml Vial) 5,000 unit SUBCUT Q8H [facility] Hydromorphone HCl (Hydromorphone Hcl 0.5 Mg/0.5 Ml Syringe) 0.5 mg IVPUSH Q5M PRN; Protocol PRN Reason: Pain, Severe (Pain Scale 7-10) Last Admin: 03/12/23 11:45 Dose: 0.5 mg Hydromorphone HCl (Hydromorphone Hcl 0.5 Mg/0.5 Ml Syringe) 0.5 mg IVPUSH Q3H PRN; Protocol PRN Reason: Pain, Severe (Pain Scale 7-10) Hydromorphone HCl (Hydromorphone Hcl 2 Mg Tablet) 2 mg PO Q4H PRN PRN Reason: Pain, Moderate(Pain Scale 4-6) Hydromorphone HCl (Hydromorphone Hcl 4 Mg Tablet) 4 mg PO Q4H PRN PRN Reason: Pain, Severe (Pain Scale 7-10) Lactated Ringer's (Lr) 1,000 mls @ 100 mls/hr IVCONT .Q10H [facility] Last Admin: 03/12/23 07:00 Dose: 100 mls/hr Promethazine HCl 6.25 mg/ (Sodium Chloride) 50.25 mls @ 201 mls/hr IV ONCE PRN PRN Reason: Nausea and Vomiting Lactated Ringer's (Lr) 1,000 mls @ 80 mls/hr IVCONT .[id number] [facility] Acetaminophen (Ofirmev) 1,000 mg in 100 mls @ 400 mls/hr IV Q6H [facility] Last Admin: 03/12/23 12:34 Dose: 400 mls/hr Levothyroxine Sodium (Levothyroxine Sodium 125 Mcg Tablet) 125 mcg PO DAILY@0600 [facility] Lorazepam (Lorazepam 0.5 Mg Tablet) 0.5 mg PO BID PRN PRN Reason: anxiety Meclizine HCl (Meclizine Hcl 12.5 Mg Tablet) 12.5 mg PO DAILY PRN PRN Reason: Vertigo Melatonin (Melatonin 3 Mg Tablet) 6 mg PO BEDTIME PRN PRN Reason: Insomnia Non-Formulary Medication (Mesalamine [Apriso]) 1.5 gm PO DAILY [facility] Nortriptyline HCl (Nortriptyline Hcl 10 Mg Capsule) 10 mg PO BEDTIME [facility] Omeprazole (Omeprazole 20 Mg Capsule.Dr) 20 mg PO DAILY@0630 [facility] Ondansetron HCl (Ondansetron Hcl 4 Mg/2 Ml Vial) 4 mg IVPUSH ONCE PRN PRN Reason: Nausea and Vomiting Ondansetron HCl (Ondansetron Hcl 4 Mg/2 Ml Vial) 4 mg IVPUSH Q8H PRN PRN Reason: Nausea and Vomiting Sertraline HCl (Sertraline Hcl 25 Mg Tablet) 125 mg PO DAILY [facility] Sodium Chloride (0.9 % Sodium Chloride Flush 3 Ml Syringe) 3 ml IVFLUSH QSHIFT [facility] Trazodone HCl (Trazodone Hcl 100 Mg Tablet) 100 mg PO BEDTIME PRN PRN Reason: Insomnia Home Medications Medication Instructions Recorded Confirmed Last Taken Type morphine 15 mg immediate release 15 mg PO BID PRN Pain 02/08/20 03/05/23 Unknown History tablet pantoprazole 40 mg tablet,delayed 40 mg PO DAILY 02/08/20 03/05/23 Unknown History release sertraline 100 mg tablet 125 mg PO DAILY 02/08/20 03/05/23 Unknown History lorazepam 0.5 mg tablet 0.5 mg PO BID PRN anxiety 08/19/21 03/05/23 Unknown History albuterol sulfate 90 mcg/actuation 2 puff inhalation DAILY PRN asthma 04/21/22 03/05/23 Unknown History aerosol inhaler nortriptyline 10 mg capsule 10 mg PO BEDTIME 07/08/22 03/05/23 Unknown History ticagrelor 90 mg tablet (Brilinta) 90 mg PO BID 08/25/22 03/12/23 03/06/23 History ubrogepant 50 mg tablet (Ubrelvy) 50 mg PO DAILY PRN headaches 08/25/22 03/05/23 Unknown History meclizine 12.5 mg tablet 12.5 mg PO DAILY PRN Vertigo 09/04/22 03/05/23 Unknown History cholecalciferol (vitamin D3) 50 50 mcg PO DAILY 12/01/22 03/05/23 Unknown History mcg (2,000 unit) capsule trazodone 50 mg tablet 100 mg PO BEDTIME PRN Insomnia 02/23/23 03/05/23 Unknown History levothyroxine 125 mcg tablet 125 mcg PO DAILY 03/06/23 03/06/23 Unknown History (Levoxyl) Physical Exam Vital Signs and Narrative: Vital Signs: Last Vital Signs Temp 97.8 F 03/12/23 13:50 Pulse 84 03/12/23 13:50 Resp 14 03/12/23 13:50 BP 120/58 L 03/12/23 13:50 Pulse Ox 94 03/12/23 13:50 O2 Del Method Room Air 03/12/23 13:50 O2 Flow Rate 1 03/12/23 13:20 BMI result Body Mass Index 39.9 Limited d/t pt's somnolence General: AOx3, somnolent but arousable, falling asleep during interview, in no acute distress Resp: CTA bilaterally; left-sided chest tubes in place CVS: S1, S2, RRR GI: +BS, NT, no distention Skin: Warm, dry Neuro: Cranial nerves II-XII grossly intact bilaterally. Motor grossly intact bilaterally Extremities: No edema Results Labs Labs: Laboratory Results - last 24 hr 03/12/23 06:48 Blood Type AB Positive Antibody Screen NEGATIVE Crossmatch See Detail Imaging Radiologist's Impressions: Impressions Chest X-Ray 03/12/23 11:48 IMPRESSION: 2 left-sided chest tubes in place with subcutaneous emphysema. There is disease left upper lobe and left lower lung. Assessment and Plan (1) Abnormal radiologic finding of lung field: Status: Acute Plan Patient is a 57-year-old female with a PMH significant for moderate persistent asthma, hx of Hodgkin's lymphoma 30 years ago s/p mantle radiation and chemotherapy, radiation-induced CAD s/p stenting, aortic stenosis, mitral regurgitation, hypothyroidism, hx of bariatric surgery, hx of pericarditis, hx of recurrent pleural effusions, and hx of pleurodesis who was admitted under general surgery services for elective thoracotomy and lung biopsy. Hospitalist consult for medical management Left lung thoracotomy and biospy Plan as per General Surgery Moderate persistant asthma Not in acute exacerbation Continue home inhalers Monitor respiratory status CAD Continue statin Resuming aspirin and ticagrelor: plan as per surgical team Hypothyroidism Continue levothyroxine GERD Continue PPI Mood disorder Continue home meds Thank you for allowing us to participate in the care of this patient. Will continue following for now.
--- NOTE | 2023-03-12 14:54 | W.PM.OPN ---
Operative Note Operative Note Date of Service: 03/12/23 Narrative: Preoperative diagnosis: [] 1. History of non-Hodgkin's lymphoma, radiation to chest, left hemithorax pleurodesis, apical left lung process, 2. Suspicious right groin lymph node Postop diagnosis: [] Same Procedure [] 1. Excision right groin lymph node 2. Left mini thoracotomy, extensive pneumonolysis, wedge resection left upper lobe lung, intercostal nerve block Surgeon: [] Felix Neon Tube Bender: [] Stephen Type of Anesthesia: [] MAC for groin lymph node excision, followed by Attempted double-lumen general converted to single-lumen endotracheal tube. Please see Anesthesia no regarding this. Finding; Frozen section on groin lymph node was negative for pathology. Intrathoracic findings demonstrated very intense profound adhesions of the entire lung to the chest wall and mediastinum. Marked induration and And fullness of the left upper lobe process was encountered and wedge resected and sent to pathology for permanent evaluation. Procedure; Patient brought to the operating room, placed on the operating room table in the supine position, after adequate level of MAC was initially induced, the right groin was prepped and draped in usual sterile fashion using a transverse incision over the right groin over the suspicious groin lymph node, this carried down the skin, subcutaneous tissue, Chelsey's fascia. Lymph node was identified and dissected out using Bovie. Specimen sent to pathology with frozen section as noted above. Wound was irrigated, secured hemostasis, and closed in the following manner; Chelsey's fascia was reapproximated using interrupted 3-0 Vicryl sutures. Interrupted inverted deep dermal 3-0 Vicryl sutures followed by running subcuticular 4-0 Vicryl suture placed. Steri-Strips sterile dressings were applied. Wound was initially and at completion infiltrated with 1% lidocaine/0.5% Marcaine. For This portion procedure; the sponge, instrument, needle counts reported correct. EBL was minimal. Patient was then placed in the right lateral decubitus position and the left chest was prepped and draped in usual sterile fashion after the patient was appropriately positioned. Using a small posterior lateral incision is below the scapular tip, this carried down through skin, subcutaneous tissue, and latissimus dorsi muscle , and the serrated anterior muscle was retracted anteriorly and preserved. Fifth intercostal space was opened along the upper margin a 6 rib. Posterior aspect of the 6th rib was transected. Intercostal arteries were clipped. Packs and retractors were placed to enhance exposure. Patient had profound adhesions most likely secondary to prior sclerosis/pleurodesis and prior radiation therapy. Very extensive pneumono-lysis was undertaken just to gain access into the thoracic cavity. Left upper lobe was particularly adhered to the apex necessitating very meticulous dissection off the thoracic aorta and hemithorax apex. Once adequately mobilized, this thickened inflammatory/ process was cyst transected using TA stapler and specimen sent to pathology. Chest cavity was irrigated secured hemostasis. Through separate stab wound incisions, anterior apical posterior basal 28 Lithuanian chest tubes were placed into the chest cavity and secured the skin using 0 silk sutures. Chest cavity was again secured hemostasis and was closed in the following manner some ankle over over 2. Vicryl sutures x4 weeks to reapproximate the ribs. The this was dorsi muscle was closed using running 2 Vicryl suture. Running deep dermal 2-0 Vicryl suture followed by running subcuticular 4-0 Vicryl suture placed. Steri-Strips and sterile dressings were applied. Chest tubes were connected to Pleur-evac and lung re-expanded with minimal air leak demonstrated. Intercostal nerve block using Exparel was then performed. Sponge, needle, instrument counts reported correct. Patient tolerated the procedure well and emerged anesthesia stable condition. EBL minimal
--- NOTE | 2023-03-12 23:52 | PC.NURSE ---
Report given to oncoming RN assuming care of patient at this time.
[2023-03-13 03:14] VITALS: BP 102/61; PULSE 76; RESP 18; TEMP 36.1; O2SAT 96
[2023-03-13 07:07] VITALS: BP 124/60; PULSE 81; RESP 20; TEMP 36.4; O2SAT 93
--- NOTE | 2023-03-13 08:18 | MHC.CM.PN ---
CM met with Patient at bedside. Patient lives in a house with her /HCP and her 22 year old Daughter. Patient is an employee of [employer] and she required no services nor DME RN IMAGING. Home/self care is the goal and CM has initiated and will follow for dc planning. PCP is Dr. Huong Johnson.
--- NOTE | 2023-03-13 08:32 | PM.PNTS ---
Subjective Subjective Date of Service: 03/13/23 <Clotilde Mitchell PA-C - Last Filed: 03/13/23 12:15> 03/13/23 <Bartolome Washington MD - Last Filed: 03/13/23 11:08> Interval history: Feels very sore this morning. Pain medications helping but wearing off quickly. Has not been OOB yet. <Clotilde Mitchell PA-C - Last Filed: 03/13/23 12:15> Physical Exam Vital Signs: Vital Signs: Last Vital Signs Temp 97.5 F 03/13/23 07:07 Pulse 81 03/13/23 07:07 Resp 20 03/13/23 07:07 BP 124/60 03/13/23 07:07 Pulse Ox 93 03/13/23 07:07 O2 Del Method Room Air 03/13/23 07:07 O2 Flow Rate 1 03/12/23 13:20 BMI result Body Mass Index 39.9 <Clotilde Mitchell PA-C - Last Filed: 03/13/23 12:15> Const: General: comfortable, no acute distress and alert <Clotilde Mitchell PA-C - Last Filed: 03/13/23 12:15> Orientation/consciousness: patient oriented x3 <RODO Donovan Last Filed: 03/13/23 12:15> Chest: Other: left thoractomy dressing intact, clean chest tubes intact, sanguineous output <RODO Donovan Last Filed: 03/13/23 12:15> Resp: Effort & Inspection: normal respiratory effort <RODO Donovan Last Filed: 03/13/23 12:15> Skin: General skin exam: no rashes or lesions noted <RODO Donovan Last Filed: 03/13/23 12:15> Neuro: General: patient oriented x3 and moves all extremities <RODO Donovan Last Filed: 03/13/23 12:15> Procedures Date of Service Date of Service: 03/13/23 <Clotilde Mitchell PA-C - Last Filed: 03/13/23 12:15> 03/13/23 <MD Katherine Quijano Last Filed: 03/13/23 11:08> Progress Note: A&P Assessment and plan (1) Pulmonary nodule: Status: Acute <RODO Donovan Last Filed: 03/13/23 12:15> (2) Abnormal radiologic finding of lung field: Status: Acute <RODO Donovan Last Filed: 03/13/23 12:15> (3) Lymphadenopathy: Status: Acute <RODO Donovan Last Filed: 03/13/23 12:15> Assessment and Plan: POD #1 s/p Excision right groin lymph node and left mini thoracotomy, extensive pneumonolysis, wedge resection left upper lobe lung, intercostal nerve block for history of non-Hodgkin's lymphoma, radiation to chest, left hemithorax pleurodesis, apical left lung process and suspicious right groin lymph node. She is doing fairly well post op, having difficulty with post operative pain. Thoracotomy incision site dressing c/d/i, chest tubes in place with sanguineous output, very small air leak detected and no pneumo on f/u CXR. Cont pain control. OOB to recliner today, incentive spirometer 10x hourly. Diet as tolerated. Await AM labs. Resume brilinta tomorrow morning. Chest tubes placed to water seal, repeat CXR in am. If no leak, air space can remove. <Clotilde Mitchell PA-C - Last Filed: 03/13/23 12:15> Time Spent With Patient Time: Total time managing care of this patient today ____ minutes. <Clotilde Mitchell PA-C - Last Filed: 03/13/23 12:15> Quality Stroke Does the patient have a stroke diagnosis?: No <Bartolome Washington MD - Last Filed: 03/13/23 11:08> VTE Prior VTE?: No <Bartolome Washington MD - Last Filed: 03/13/23 11:08> VTE Risk Level:: Surgical - low <MD Katherine Quijano Last Filed: 03/13/23 11:08> VTE Device Contraindication: N/A - Device Ordered <MD Katherine Quijano Last Filed: 03/13/23 11:08> VTE Drug Contraindication: N/A - Med Ordered <Bartolome Washington MD - Last Filed: 03/13/23 11:08>
[2023-03-13 08:56] LABS: Anion Gap 15 (12-20); Blood Urea Nitrogen 10 mg/dL (9-16); Calcium 8.7 mg/dL (8.4-10.2); Carbon Dioxide 23 mmol/L (22-29); Chloride 104 mmol/L (96-108); Creatinine Clr Calc Pharmacy 99.8; Estimated Glomerular Filt Rate > 60; Glucose Fasting 116 mg/dL (60-99); Potassium 4.2 mmol/L (3.3-5.1); Sodium 138 mmol/L (135-145)
[2023-03-13 11:07] VITALS: BP 160/58; PULSE 97; RESP 20; TEMP 36.7; O2SAT 94
--- NOTE | 2023-03-13 13:08 | HO.POSTANES ---
Post Anesthesia Evaluation Post Anesthesia Evaluation Date of Service: 03/13/23 Vital Signs: Vital Signs Temp Pulse Resp BP Pulse Ox O2 Del Method 03/13/23 11:07 98.1 F 97 20 160/58 H 94 Room Air 03/13/23 07:07 97.5 F 81 20 124/60 93 Room Air 03/13/23 03:14 97.0 F 76 18 102/61 96 Room Air Anesthesia: General Endotracheal-GETA Mental Status: Awake Pain Control: Satisfactory (difficult to control) Nausea/Vomiting: Mild Hydration: Adequate Anesthesia-Related Issues: No Anes. Related Issues
--- NOTE | 2023-03-13 15:34 | HO.PM.IMPN ---
Subjective Subjective Date of Service: 03/13/23 Interval History: seen and examined this morning follow up for medical consult no overnight events pleuritic pain, pain at chest tube insertion Review of Systems Review of Systems: Yes all other systems are reviewed and are negative Constitutional Constitutional: Denies chills and Denies fever(s) ENT Ears, Nose, Mouth, and Throat: Denies dizziness Neurologic Neurologic: Denies dizziness Physical Exam Vital Signs: Vital Signs: Last Vital Signs Temp 98.1 F 03/13/23 11:07 Pulse 97 03/13/23 11:07 Resp 20 03/13/23 11:07 BP 160/58 H 03/13/23 11:07 Pulse Ox 94 03/13/23 11:07 O2 Del Method Room Air 03/13/23 11:07 O2 Flow Rate 1 03/12/23 13:20 BMI result Body Mass Index 39.9 Const: General: cooperative, comfortable, no acute distress, alert and awake Nutritional Appearance: obese Orientation/consciousness: patient oriented x3 Chest: Other: left thoracotomy dressing clean, chest tubes present x2 left chest wall, with sanguineous output Resp: Effort & Inspection: normal respiratory effort, able to speak in complete sentences, no respiratory distress and no use of accessory muscles Cardio: Rate: regular rate GI: Inspection: No distended Palpation (GI): Soft to palpation and nontender Neuro: General: patient oriented x3, moves all extremities and CN's II-XI intact bilaterally Extrem: General: Yes no pedal edema Objective Data Active Medications Albuterol Sulfate (Albuterol Sulfate (0.083%) 2.5 Mg/3 Ml Vial.Neb) 2.5 mg INHALE ONCE PRN PRN Reason: Shortness of Breath/Wheezing Albuterol Sulfate (Albuterol Sulfate 90 Mcg 8 Gm Inhaler) 2 puff INHALE DAILY PRN PRN Reason: asthma Albuterol/Ipratropium (Albuterol/Iprat 2.5/0.5mg 3 Ml Ampul.Neb) 3 ml INHALE Q6H PRN PRN Reason: wheezing Aspirin (Aspirin Enteric Coated 81 Mg Tablet.) 81 mg PO DAILY [facility] Last Admin: 03/13/23 10:20 Dose: 81 mg Documented By: TALIB Atorvastatin Calcium (Atorvastatin Calcium 40 Mg Tablet) 40 mg PO DAILY [facility] Last Admin: 03/13/23 10:20 Dose: 40 mg Documented By: TALIB Docusate Sodium (Docusate Sodium 100 Mg Capsule) 100 mg PO BID [facility] Last Admin: 03/13/23 10:25 Dose: Not Given Documented By: TALIB Non-Admin Reason: Patient Refused Fluticasone/Vilanterol (Fluticasone/Vilanterol 100/25 Blst.W.Dev) 1 puff INHALE RDAILY [facility] Last Admin: 03/13/23 08:35 Dose: Not Given Documented By: LISBET Non-Admin Reason: not in luisa pyxis, pharmacy made aware Hydromorphone HCl (Hydromorphone Hcl 0.5 Mg/0.5 Ml Syringe) 0.5 mg IVPUSH Q3H PRN; Protocol PRN Reason: Pain, Severe (Pain Scale 7-10) Last Admin: 03/13/23 12:24 Dose: 0.5 mg Documented By: TALIB Hydromorphone HCl (Hydromorphone Hcl 2 Mg Tablet) 2 mg PO Q4H PRN PRN Reason: Pain, Moderate(Pain Scale 4-6) Last Admin: 03/12/23 20:29 Dose: 2 mg Documented By: TANIA-YANDEL Hydromorphone HCl (Hydromorphone Hcl 2 Mg Tablet) 4 mg PO Q4H PRN PRN Reason: Pain, Severe (Pain Scale 7-10) Last Admin: 03/13/23 10:21 Dose: 4 mg Documented By: TALIB Acetaminophen (Ofirmev) 1,000 mg in 100 mls @ 400 mls/hr IV Q6H [facility] Last Infusion: 03/13/23 13:07 Dose: Infused Documented By: TALIB Levothyroxine Sodium (Levothyroxine Sodium 125 Mcg Tablet) 125 mcg PO DAILY@0600 [facility] Last Admin: 03/13/23 05:40 Dose: 125 mcg Documented By: ANTOIC Lorazepam (Lorazepam 0.5 Mg Tablet) 0.5 mg PO BID PRN PRN Reason: anxiety Last Admin: 03/12/23 20:29 Dose: 0.5 mg Documented By: SERENITY Meclizine HCl (Meclizine Hcl 12.5 Mg Tablet) 12.5 mg PO DAILY PRN PRN Reason: Vertigo Melatonin (Melatonin 3 Mg Tablet) 6 mg PO BEDTIME PRN PRN Reason: Insomnia Non-Formulary Medication (Mesalamine [Apriso]) 1.5 gm PO DAILY [facility] Nortriptyline HCl (Nortriptyline Hcl 10 Mg Capsule) 10 mg PO BEDTIME [facility] Last Admin: 03/12/23 20:29 Dose: 10 mg Documented By: TANIA-RIVANDIE Omeprazole (Omeprazole 20 Mg Capsule.Dr) 20 mg PO DAILY@0630 [facility] Last Admin: 03/13/23 05:40 Dose: 20 mg Documented By: ANTOIC Ondansetron HCl (Ondansetron Hcl 4 Mg/2 Ml Vial) 4 mg IVPUSH Q8H PRN PRN Reason: Nausea and Vomiting Last Admin: 03/13/23 10:50 Dose: 4 mg Documented By: TALIB Sertraline HCl (Sertraline Hcl 25 Mg Tablet) 125 mg PO DAILY [facility] Last Admin: 03/13/23 10:21 Dose: 125 mg Documented By: TALIB Sodium Chloride (0.9 % Sodium Chloride Flush 3 Ml Syringe) 3 ml IVFLUSH QSHIFT [facility] Last Admin: 03/13/23 10:21 Dose: 3 ml Documented By: TALIB Ticagrelor (Ticagrelor 90 Mg Tablet) 90 mg PO BID [facility] Trazodone HCl (Trazodone Hcl 100 Mg Tablet) 100 mg PO BEDTIME PRN PRN Reason: Insomnia Labs 03/13/23 06:51 03/13/23 06:51 Labs: Laboratory Results - last 24 hr 03/13/23 06:51 MCV 90.0 MCH 28.8 MCHC 32.0 RDW 16.1 H Plt Count 238 MPV 12.1 Immature Gran % (Auto) 0.5 H Neut % (Auto) 74.4 H Lymph % (Auto) 13.1 L [place] % (Auto) 11.9 H Eos % (Auto) 0.0 Baso % (Auto) 0.1 Lymph # (Auto) 2.4 [place] # (Auto) 2.2 H Eos # (Auto) 0.0 Baso # (Auto) 0.0 Abs Immat Gran (auto) 0.09 H Absolute Neuts (auto) 13.5 H Absolute Nucleated RBC 0.000 Nucleated RBC % (auto) 0.0 Smear Tech's Comments VERIFIED Anion Gap 15 Estim Creat Clear Calc 99.8 Estimated GFR > 60 Fasting Glucose 116 H Calcium 8.7 D Assessment and Plan (1) Anemia: Status: Acute Plan Patient is a 57-year-old female with a PMH significant for moderate persistent asthma, hx of Hodgkin's lymphoma 30 years ago s/p mantle radiation and chemotherapy, radiation-induced CAD s/p stenting, aortic stenosis, mitral regurgitation, hypothyroidism, hx of bariatric surgery, hx of pericarditis, hx of recurrent pleural effusions, and hx of pleurodesis who was admitted under general surgery services for elective thoracotomy and lung biopsy. Hospitalist consult for medical management Left lung thoracotomy right lymph node suspicious on PET scan as well as a left upper lobe/apical suspicious area. previous biopsies by IR were nondiagnostic. POD #1 s/p Left mini thoracotomy, extensive pneumonolysis, wedge resection left upper lobe lung, intercostal nerve block and excision of right groin lymph node management per thoracic Surgery normocytic anemia last H/H from 12/6, significant drop to 8.1/25.3 no preoperative labs so chronicity unclear, but likely acute due to acute blood loss from surgical prcedure/sanguinous output from chest tube above transfusion threshold at this time follow CBC transfuse prn Moderate persistent asthma Not in acute exacerbation Continue home inhalers CAD Continue statin aspirin resumed plan to resume brilinta 1/ per surgical team Hypothyroidism Continue levothyroxine GERD Continue PPI Mood disorder Continue home meds gerd continue omeprazole Thank you for allowing us to participate in the care of this patient. Will continue following for now. Quality Stroke Does the patient have a stroke diagnosis?: No VTE Prior VTE?: No VTE Risk Level:: Surgical - low VTE Device Contraindication: N/A - Device Ordered VTE Drug Contraindication: N/A - Med Ordered
[2023-03-13 15:51] VITALS: BP 114/58; PULSE 87; RESP 18; TEMP 36.3; O2SAT 96
[2023-03-13 16:24] LABS: Iron 30 mcg/dL (30-160); Lactate Dehydrogenase 270 U/L (122-220); Percent Iron Saturation 11 % (15-50); Total Iron Binding Capacity 261 mcg/dL (228-428); Unsaturated Iron Binding 231 ug/dL
[2023-03-13 16:39] LABS: Ferritin 85 ng/mL (10-250)
[2023-03-13 20:00] VITALS: BP 107/51; PULSE 90; RESP 19; TEMP 36.3; O2SAT 96
[2023-03-14] VITALS (9 sets, daily range): BP systolic 90–118; BP diastolic 40–67; PULSE 76–88; RESP 16–20; TEMP 35.8–36.7; O2SAT 90–97
--- NOTE | 2023-03-14 07:42 | HO.PM.IMPN ---
Subjective Subjective Date of Service: 03/14/23 Interval History: seen and examined this morning follow up for medical consult no overnight events pleuritic pain, pain at chest tube insertion Review of Systems Review of Systems: Yes all other systems are reviewed and are negative Constitutional Constitutional: Denies chills and Denies fever(s) ENT Ears, Nose, Mouth, and Throat: Denies dizziness Neurologic Neurologic: Denies dizziness Physical Exam Vital Signs: Vital Signs: Last Vital Signs Temp 96.9 F 03/14/23 03:11 Pulse 84 03/14/23 03:11 Resp 20 03/14/23 03:11 BP 93/45 L 03/14/23 03:11 Pulse Ox 90 L 03/14/23 03:11 O2 Del Method Room Air 03/14/23 03:11 O2 Flow Rate 1 03/12/23 13:20 BMI result Body Mass Index 39.9 Constitutional - Awake and Alert, No apparent distress Eyes - PERRLA, EOMI Cardiovascular - S1S2, RRR, No edema Respiratory - Normal lung expansion, Normal respiratory effort, No respiratory distress, diminished LLL, otherwise CTA, chest tube draining serosanguinous output Gastrointestinal - NT / ND; +BS; No rebound or guarding Extremities - no calf tenderness bilaterally, no swelling Skin - Warm/Dry Neurological - Alert & oriented x3 Psychological - Appropriate affect Objective Data Active Medications Albuterol Sulfate (Albuterol Sulfate (0.083%) 2.5 Mg/3 Ml Vial.Neb) 2.5 mg INHALE ONCE PRN PRN Reason: Shortness of Breath/Wheezing Albuterol Sulfate (Albuterol Sulfate 90 Mcg 8 Gm Inhaler) 2 puff INHALE DAILY PRN PRN Reason: asthma Albuterol/Ipratropium (Albuterol/Iprat 2.5/0.5mg 3 Ml Ampul.Neb) 3 ml INHALE Q6H PRN PRN Reason: wheezing Aspirin (Aspirin Enteric Coated 81 Mg Tablet.) 81 mg PO DAILY [facility] Last Admin: 03/13/23 10:20 Dose: 81 mg Documented By: TALIB Atorvastatin Calcium (Atorvastatin Calcium 40 Mg Tablet) 40 mg PO DAILY [facility] Last Admin: 03/13/23 10:20 Dose: 40 mg Documented By: TALIB Docusate Sodium (Docusate Sodium 100 Mg Capsule) 100 mg PO BID [facility] Last Admin: 03/13/23 20:14 Dose: 100 mg Documented By: ILANA Fluticasone/Vilanterol (Fluticasone/Vilanterol 100/25 Blst.W.Dev) 1 puff INHALE RDAILY [facility] Last Admin: 03/13/23 08:35 Dose: Not Given Documented By: LISBET Non-Admin Reason: not in luisa pyxis, pharmacy made aware Hydromorphone HCl (Hydromorphone Hcl 0.5 Mg/0.5 Ml Syringe) 0.5 mg IVPUSH Q3H PRN; Protocol PRN Reason: Pain, Severe (Pain Scale 7-10) Last Admin: 03/14/23 00:20 Dose: 0.5 mg Documented By: MANNIE Hydromorphone HCl (Hydromorphone Hcl 2 Mg Tablet) 2 mg PO Q4H PRN PRN Reason: Pain, Moderate(Pain Scale 4-6) Last Admin: 03/12/23 20:29 Dose: 2 mg Documented By: SERENITY Hydromorphone HCl (Hydromorphone Hcl 2 Mg Tablet) 4 mg PO Q4H PRN PRN Reason: Pain, Severe (Pain Scale 7-10) Last Admin: 03/14/23 06:09 Dose: 4 mg Documented By: MANNIE Acetaminophen (Ofirmev) 1,000 mg in 100 mls @ 400 mls/hr IV Q6H [facility] Last Infusion: 03/14/23 06:36 Dose: Infused Documented By: MANNIE Levothyroxine Sodium (Levothyroxine Sodium 125 Mcg Tablet) 125 mcg PO DAILY@0600 [facility] Last Admin: 03/14/23 05:54 Dose: 125 mcg Documented By: MANNIE Lorazepam (Lorazepam 0.5 Mg Tablet) 0.5 mg PO BID PRN PRN Reason: anxiety Last Admin: 03/12/23 20:29 Dose: 0.5 mg Documented By: SERENITY Meclizine HCl (Meclizine Hcl 12.5 Mg Tablet) 12.5 mg PO DAILY PRN PRN Reason: Vertigo Melatonin (Melatonin 3 Mg Tablet) 6 mg PO BEDTIME PRN PRN Reason: Insomnia Non-Formulary Medication (Mesalamine [Apriso]) 1.5 gm PO DAILY [facility] Nortriptyline HCl (Nortriptyline Hcl 10 Mg Capsule) 10 mg PO BEDTIME [facility] Last Admin: 03/13/23 20:14 Dose: 10 mg Documented By: ILANA Omeprazole (Omeprazole 20 Mg Capsule.) 20 mg PO DAILY@0630 [facility] Last Admin: 03/14/23 05:54 Dose: 20 mg Documented By: MANNIE Ondansetron HCl (Ondansetron Hcl 4 Mg/2 Ml Vial) 4 mg IVPUSH Q8H PRN PRN Reason: Nausea and Vomiting Last Admin: 03/13/23 10:50 Dose: 4 mg Documented By: TALIB Sertraline HCl (Sertraline Hcl 25 Mg Tablet) 125 mg PO DAILY [facility] Last Admin: 03/13/23 10:21 Dose: 125 mg Documented By: TALIB Sodium Chloride (0.9 % Sodium Chloride Flush 3 Ml Syringe) 3 ml IVFLUSH QSHIFT [facility] Last Admin: 03/13/23 20:14 Dose: 3 ml Documented By: ILANA Ticagrelor (Ticagrelor 90 Mg Tablet) 90 mg PO BID [facility] Trazodone HCl (Trazodone Hcl 100 Mg Tablet) 100 mg PO BEDTIME PRN PRN Reason: Insomnia Labs 03/14/23 07:06 03/13/23 06:51 Labs: Laboratory Results - last 24 hr 03/13/23 06:51 MCV 90.0 MCH 28.8 MCHC 32.0 RDW 16.1 H Plt Count 238 MPV 12.1 Immature Gran % (Auto) 0.5 H Neut % (Auto) 74.4 H Lymph % (Auto) 13.1 L [place] % (Auto) 11.9 H Eos % (Auto) 0.0 Baso % (Auto) 0.1 Lymph # (Auto) 2.4 [place] # (Auto) 2.2 H Eos # (Auto) 0.0 Baso # (Auto) 0.0 Abs Immat Gran (auto) 0.09 H Absolute Neuts (auto) 13.5 H Absolute Nucleated RBC 0.000 Nucleated RBC % (auto) 0.0 Smear Tech's Comments VERIFIED Anion Gap 15 Estim Creat Clear Calc 99.8 Estimated GFR > 60 Fasting Glucose 116 H Calcium 8.7 D Iron 30 TIBC 261 % Saturation 11 L Unsat Iron Binding 231 Ferritin 85 Lactate Dehydrogenase 270 H Assessment and Plan (1) Anemia: Status: Acute (2) Pulmonary nodule: Status: Acute (3) Abnormal radiologic finding of lung field: Status: Acute Plan Patient is a 57-year-old female with a PMH significant for moderate persistent asthma, hx of Hodgkin's lymphoma 30 years ago s/p mantle radiation and chemotherapy, radiation-induced CAD s/p stenting, aortic stenosis, mitral regurgitation, hypothyroidism, hx of bariatric surgery, hx of pericarditis, hx of recurrent pleural effusions, and hx of pleurodesis who was admitted under general surgery services for elective thoracotomy and lung biopsy. Hospitalist consult for medical management Left lung thoracotomy right lymph node suspicious on PET scan as well as a left upper lobe/apical suspicious area. previous biopsies by IR were nondiagnostic. POD #1 s/p Left mini thoracotomy, extensive pneumonolysis, wedge resection left upper lobe lung, intercostal nerve block and excision of right groin lymph node management per thoracic Surgery Acute blood loss anemia last H/H from 12.7 (02/11)--> 8.1 (03/13) --> 7.0 (03/14) no preoperative labs so chronicity unclear, but likely acute due to acute blood loss from surgical prcedure/sanguinous output from chest tube Discussed possible transfusion with thoracic surgery. Per surgery, repeat CBC this afternoon, and reevaluate follow CBC Moderate persistent asthma Not in acute exacerbation Continue home inhalers CAD Continue statin aspirin resumed plan to resume brilinta 03/14 per surgical team Hypothyroidism Continue levothyroxine GERD Continue PPI Mood disorder Continue home meds gerd continue omeprazole Thank you for allowing us to participate in the care of this patient. Will continue following for now. Quality Stroke Does the patient have a stroke diagnosis?: No VTE Prior VTE?: No VTE Risk Level:: Surgical - low VTE Device Contraindication: N/A - Device Ordered VTE Drug Contraindication: N/A - Med Ordered
--- NOTE | 2023-03-14 15:09 | PM.PNTS ---
Subjective Subjective Date of Service: 03/14/23 Interval history: Patient has incisional pain which is improving. She has been out of bed, using incentive spirometry, tolerating her diet. H&H decreased. Hemoglobin 7. Repeat this afternoon 7.4. A.m. chest x-ray demonstrates no hemo thorax and lung expanded. Physical Exam Vital Signs: Vital Signs: Last Vital Signs Temp 96.5 F L 03/14/23 11:50 Pulse 88 03/14/23 11:50 Resp 20 03/14/23 11:50 BP 110/52 L 03/14/23 11:50 Pulse Ox 97 03/14/23 11:50 O2 Del Method Room Air 03/14/23 11:50 O2 Flow Rate 1 03/12/23 13:20 BMI result Body Mass Index 39.9 Chest: Other: Wound clean dry and intact. Chest tube demonstrates no air leak and minimal serosanguineous output. Procedures Date of Service Date of Service: 03/14/23 Progress Note: A&P Assessment and plan (1) Pulmonary nodule: Status: Acute Plan At present, continue conservative therapy. Diet as tolerated, out of bed/ambulate, chest tube to water seal, observe H&H because it is improving and patient is asymptomatic with stable vital signs. Time Spent With Patient Time: Total time managing care of this patient today ____ minutes. Quality Stroke Does the patient have a stroke diagnosis?: No VTE Prior VTE?: No VTE Risk Level:: Surgical - low VTE Device Contraindication: N/A - Device Ordered VTE Drug Contraindication: N/A - Med Ordered
[2023-03-15] VITALS (9 sets, daily range): BP systolic 93–122; BP diastolic 44–57; PULSE 82–86; RESP 16–20; TEMP 36.1–36.6; O2SAT 92–95
--- NOTE | 2023-03-15 07:33 | HO.PM.IMPN ---
Subjective Subjective Date of Service: 03/15/23 Interval History: seen and examined this morning follow up for medical consult borderling hypotensive last evening, responded well to bolus fluids. H/H remains low, hold on transfusion per thoracic surgery- pt also not keen on transfusion pleuritic pain, pain at chest tube insertion. +cough. no sob Review of Systems Review of Systems: Yes all other systems are reviewed and are negative Physical Exam Vital Signs: Vital Signs: Last Vital Signs Temp 96.9 F 03/15/23 03:34 Pulse 84 03/15/23 03:34 Resp 20 03/15/23 03:34 BP 98/52 L 03/15/23 04:00 Pulse Ox 92 03/15/23 03:34 O2 Del Method Room Air 03/15/23 03:34 O2 Flow Rate 1 03/12/23 13:20 BMI result Body Mass Index 39.9 Constitutional - Awake and Alert, No apparent distress Eyes - PERRLA, EOMI Cardiovascular - S1S2, RRR, No edema Respiratory - Normal lung expansion, Normal respiratory effort, No respiratory distress, crackles LLL, chest tube in place with serosanguinous output Gastrointestinal - NT / ND; +BS; No rebound or guarding Extremities - no calf tenderness bilaterally, no swelling Skin - Warm/Dry Neurological - Alert & oriented x3 Psychological - Appropriate affect Objective Data Active Medications Albuterol Sulfate (Albuterol Sulfate (0.083%) 2.5 Mg/3 Ml Vial.Neb) 2.5 mg INHALE ONCE PRN PRN Reason: Shortness of Breath/Wheezing Albuterol Sulfate (Albuterol Sulfate 90 Mcg 8 Gm Inhaler) 2 puff INHALE DAILY PRN PRN Reason: asthma Albuterol/Ipratropium (Albuterol/Iprat 2.5/0.5mg 3 Ml Ampul.Neb) 3 ml INHALE Q6H PRN PRN Reason: wheezing Aspirin (Aspirin Enteric Coated 81 Mg Tablet.) 81 mg PO DAILY [facility] Last Admin: 03/14/23 09:04 Dose: 81 mg Documented By: TAQUERIA Atorvastatin Calcium (Atorvastatin Calcium 40 Mg Tablet) 40 mg PO DAILY [facility] Last Admin: 03/14/23 09:04 Dose: 40 mg Documented By: TAQUERIA Docusate Sodium (Docusate Sodium 100 Mg Capsule) 100 mg PO BID [facility] Last Admin: 03/14/23 19:46 Dose: 100 mg Documented By: DEBORAH Fluticasone/Vilanterol (Fluticasone/Vilanterol 100/25 Blst.W.Dev) 1 puff INHALE RDAILY [facility] Last Admin: 03/14/23 08:31 Dose: 1 puff Documented By: ALONSO Hydromorphone HCl (Hydromorphone Hcl 0.5 Mg/0.5 Ml Syringe) 0.5 mg IVPUSH Q3H PRN; Protocol PRN Reason: Pain, Severe (Pain Scale 7-10) Last Admin: 03/14/23 21:40 Dose: 0.5 mg Documented By: DEBORAH Hydromorphone HCl (Hydromorphone Hcl 2 Mg Tablet) 2 mg PO Q4H PRN PRN Reason: Pain, Moderate(Pain Scale 4-6) Last Admin: 03/12/23 20:29 Dose: 2 mg Documented By: SERENITY Hydromorphone HCl (Hydromorphone Hcl 2 Mg Tablet) 4 mg PO Q4H PRN PRN Reason: Pain, Severe (Pain Scale 7-10) Last Admin: 03/15/23 06:09 Dose: 4 mg Documented By: DEBORAH Acetaminophen (Ofirmev) 1,000 mg in 100 mls @ 400 mls/hr IV Q6H [facility] Last Infusion: 03/15/23 06:31 Dose: Infused Documented By: DEBORAH Levothyroxine Sodium (Levothyroxine Sodium 125 Mcg Tablet) 125 mcg PO DAILY@0600 [facility] Last Admin: 03/15/23 06:09 Dose: 125 mcg Documented By: DEBORAH Lorazepam (Lorazepam 0.5 Mg Tablet) 0.5 mg PO BID PRN PRN Reason: anxiety Last Admin: 03/12/23 20:29 Dose: 0.5 mg Documented By: SERENITY Meclizine HCl (Meclizine Hcl 12.5 Mg Tablet) 12.5 mg PO DAILY PRN PRN Reason: Vertigo Melatonin (Melatonin 3 Mg Tablet) 6 mg PO BEDTIME PRN PRN Reason: Insomnia Non-Formulary Medication (Mesalamine [Apriso]) 1.5 gm PO DAILY [facility] Nortriptyline HCl (Nortriptyline Hcl 10 Mg Capsule) 10 mg PO BEDTIME [facility] Last Admin: 03/14/23 19:45 Dose: 10 mg Documented By: DEBORAH Omeprazole (Omeprazole 20 Mg Capsule.Dr) 20 mg PO DAILY@0630 [facility] Last Admin: 03/15/23 06:09 Dose: 20 mg Documented By: DEBORAH Ondansetron HCl (Ondansetron Hcl 4 Mg/2 Ml Vial) 4 mg IVPUSH Q8H PRN PRN Reason: Nausea and Vomiting Last Admin: 03/15/23 06:09 Dose: 4 mg Documented By: DEBORAH Sertraline HCl (Sertraline Hcl 25 Mg Tablet) 125 mg PO DAILY [facility] Last Admin: 03/14/23 09:04 Dose: 125 mg Documented By: TAQUERIA Sodium Chloride (0.9 % Sodium Chloride Flush 3 Ml Syringe) 3 ml IVFLUSH QSHIFT [facility] Last Admin: 03/14/23 19:45 Dose: 3 ml Documented By: DEBORAH Ticagrelor (Ticagrelor 90 Mg Tablet) 90 mg PO BID [facility] Last Admin: 03/14/23 19:45 Dose: 90 mg Documented By: DEBORAH Trazodone HCl (Trazodone Hcl 100 Mg Tablet) 100 mg PO BEDTIME PRN PRN Reason: Insomnia Labs 03/15/23 06:38 03/13/23 06:51 Labs: Laboratory Results - last 24 hr 03/14/23 03/14/23 03/15/23 07:06 11:39 06:38 MCV 88.8 90.7 89.5 MCH 29.0 29.7 29.8 MCHC 32.7 32.7 33.3 RDW 16.2 H 16.3 H 16.3 H Plt Count 210 223 228 MPV 12.2 11.9 12.0 Immature Gran % (Auto) 0.8 H Neut % (Auto) 66.6 Lymph % (Auto) 17.9 L [place] % (Auto) 13.7 H Eos % (Auto) 0.8 Baso % (Auto) 0.2 Lymph # (Auto) 2.6 [place] # (Auto) 2.0 H Eos # (Auto) 0.1 Baso # (Auto) 0.0 Abs Immat Gran (auto) 0.11 H Absolute Neuts (auto) 9.7 H Absolute Nucleated RBC 0.000 0.000 0.000 Nucleated RBC % (auto) 0.0 0.0 0.0 Smear Tech's Comments VERIFIED Assessment and Plan (1) Anemia: Status: Acute (2) Pulmonary nodule: Status: Acute (3) Abnormal radiologic finding of lung field: Status: Acute Plan Patient is a 57-year-old female with a PMH significant for moderate persistent asthma, hx of Hodgkin's lymphoma 30 years ago s/p mantle radiation and chemotherapy, radiation-induced CAD s/p stenting, aortic stenosis, mitral regurgitation, hypothyroidism, hx of bariatric surgery, hx of pericarditis, hx of recurrent pleural effusions, and hx of pleurodesis who was admitted under general surgery services for elective thoracotomy and lung biopsy. Hospitalist consult for medical management Left lung thoracotomy right lymph node suspicious on PET scan as well as a left upper lobe/apical suspicious area. previous biopsies by IR were nondiagnostic. POD #1 s/p Left mini thoracotomy, extensive pneumonolysis, wedge resection left upper lobe lung, intercostal nerve block and excision of right groin lymph node management per thoracic Surgery Acute blood loss anemia last H/H from 12.7 (02/11)--> 8.1 (/) --> 7.0 (03/14) --> 7.1 (03/15) no preoperative labs so chronicity unclear, but likely acute due to acute blood loss from surgical prcedure/sanguinous output from chest tube Per thoracic surgery, hold on transfusion. Pt not keen on transfusion follow CBC Monitor blood pressures Moderate persistent asthma Not in acute exacerbation Continue home inhalers CAD Continue statin aspirin resumed plan to resume brilinta 03/14 per surgical team Hypothyroidism Continue levothyroxine GERD Continue PPI Mood disorder Continue home meds gerd continue omeprazole Thank you for allowing us to participate in the care of this patient. Will continue following for now. Quality Stroke Does the patient have a stroke diagnosis?: No VTE Prior VTE?: No VTE Risk Level:: Surgical - low VTE Device Contraindication: N/A - Device Ordered VTE Drug Contraindication: N/A - Med Ordered
--- NOTE | 2023-03-15 17:21 | PM.PNGS ---
Subjective Subjective Date of Service: 03/15/23 Interval history: patient is doing okay no new complaints. Saturating well without any oxygen. Complaining of some pain. Chest x-ray this morning looks good but patient on water seal has an air leak and some moderate fluctuation Physical Exam Vital Signs: Vital Signs: Last Vital Signs Temp 97 F 03/15/23 16:00 Pulse 86 03/15/23 16:00 Resp 20 03/15/23 16:00 BP 122/56 L 03/15/23 16:00 Pulse Ox 94 03/15/23 16:00 O2 Del Method Room Air 03/15/23 16:00 O2 Flow Rate 1 03/12/23 13:20 BMI result Body Mass Index 39.9 Resp: Other: Good air entry on left upper lung area Chest tube with serosanguineous fluid. Positive air leak with coughing and deep breathing Objective Data Active Medications Albuterol Sulfate (Albuterol Sulfate (0.083%) 2.5 Mg/3 Ml Vial.Neb) 2.5 mg INHALE ONCE PRN PRN Reason: Shortness of Breath/Wheezing Albuterol Sulfate (Albuterol Sulfate 90 Mcg 8 Gm Inhaler) 2 puff INHALE DAILY PRN PRN Reason: asthma Albuterol/Ipratropium (Albuterol/Iprat 2.5/0.5mg 3 Ml Ampul.Neb) 3 ml INHALE Q6H PRN PRN Reason: wheezing Aspirin (Aspirin Enteric Coated 81 Mg Tablet.) 81 mg PO DAILY [facility] Last Admin: 03/15/23 09:10 Dose: 81 mg Documented By: RUTHIE Atorvastatin Calcium (Atorvastatin Calcium 40 Mg Tablet) 40 mg PO DAILY [facility] Last Admin: 03/15/23 09:09 Dose: 40 mg Documented By: RUTHIE Docusate Sodium (Docusate Sodium 100 Mg Capsule) 100 mg PO BID [facility] Last Admin: 03/15/23 09:10 Dose: 100 mg Documented By: RUTHIE Fluticasone/Vilanterol (Fluticasone/Vilanterol 100/25 Blst.W.Dev) 1 puff INHALE RDAILY [facility] Last Admin: 03/15/23 08:11 Dose: 1 puff Documented By: ALONSO Hydromorphone HCl (Hydromorphone Hcl 0.5 Mg/0.5 Ml Syringe) 0.5 mg IVPUSH Q3H PRN; Protocol PRN Reason: Pain, Severe (Pain Scale 7-10) Last Admin: 03/15/23 15:41 Dose: 0.5 mg Documented By: RUTHIE Hydromorphone HCl (Hydromorphone Hcl 2 Mg Tablet) 2 mg PO Q4H PRN PRN Reason: Pain, Moderate(Pain Scale 4-6) Last Admin: 03/12/23 20:29 Dose: 2 mg Documented By: SERENITY Hydromorphone HCl (Hydromorphone Hcl 2 Mg Tablet) 4 mg PO Q4H PRN PRN Reason: Pain, Severe (Pain Scale 7-10) Last Admin: 03/15/23 06:09 Dose: 4 mg Documented By: DEBORAH Levothyroxine Sodium (Levothyroxine Sodium 125 Mcg Tablet) 125 mcg PO DAILY@0600 [facility] Last Admin: 03/15/23 06:09 Dose: 125 mcg Documented By: DEBORAH Lorazepam (Lorazepam 0.5 Mg Tablet) 0.5 mg PO BID PRN PRN Reason: anxiety Last Admin: 03/12/23 20:29 Dose: 0.5 mg Documented By: SERENITY Meclizine HCl (Meclizine Hcl 12.5 Mg Tablet) 12.5 mg PO DAILY PRN PRN Reason: Vertigo Melatonin (Melatonin 3 Mg Tablet) 6 mg PO BEDTIME PRN PRN Reason: Insomnia Non-Formulary Medication (Mesalamine [Apriso]) 1.5 gm PO DAILY [facility] Nortriptyline HCl (Nortriptyline Hcl 10 Mg Capsule) 10 mg PO BEDTIME [facility] Last Admin: 03/14/23 19:45 Dose: 10 mg Documented By: DEBORAH Omeprazole (Omeprazole 20 Mg Capsule.Dr) 20 mg PO DAILY@0630 [facility] Last Admin: 03/15/23 06:09 Dose: 20 mg Documented By: DEBORAH Ondansetron HCl (Ondansetron Hcl 4 Mg/2 Ml Vial) 4 mg IVPUSH Q8H PRN PRN Reason: Nausea and Vomiting Last Admin: 03/15/23 06:09 Dose: 4 mg Documented By: DEBORAH Sertraline HCl (Sertraline Hcl 25 Mg Tablet) 125 mg PO DAILY [facility] Last Admin: 03/15/23 09:10 Dose: 125 mg Documented By: RUTHIE Sodium Chloride (0.9 % Sodium Chloride Flush 3 Ml Syringe) 3 ml IVFLUSH QSHIFT [facility] Last Admin: 03/15/23 15:42 Dose: 3 ml Documented By: RUTHIE Ticagrelor (Ticagrelor 90 Mg Tablet) 90 mg PO BID [facility] Last Admin: 03/15/23 09:10 Dose: 90 mg Documented By: RUTHIE Trazodone HCl (Trazodone Hcl 100 Mg Tablet) 100 mg PO BEDTIME PRN PRN Reason: Insomnia Labs 03/15/23 06:38 03/13/23 06:51 Labs: Laboratory Results - last 24 hr 03/15/23 06:38 MCV 89.5 MCH 29.8 MCHC 33.3 RDW 16.3 H Plt Count 228 MPV 12.0 Absolute Nucleated RBC 0.000 Nucleated RBC % (auto) 0.0 Procedures Date of Service Date of Service: 03/15/23 Progress Note: A&P Assessment and plan (1) Abnormal radiologic finding of lung field: Status: Acute Assessment and Plan: patient is postop day 3. Status post groin lymph node dissection removal and left mini thoracotomy and wedge resection of the lung. Overall doing quite well. patient is generally comfortable but it despite chest x-ray showing no obvious pneumothorax she has morphine air leak present with coughing and deep breathing and sewed chest pleura vac will be put back to suction. X-ray for tomorrow. She is saturating well. Follow-up on pathology Time Spent With Patient Time: Total time managing care of this patient today ____ minutes. Quality Stroke Does the patient have a stroke diagnosis?: No VTE Prior VTE?: No VTE Risk Level:: Surgical - low VTE Device Contraindication: N/A - Device Ordered VTE Drug Contraindication: N/A - Med Ordered
[2023-03-16] VITALS (12 sets, daily range): BP systolic 114–162; BP diastolic 42–75; PULSE 80–105; RESP 15–20; TEMP 36.1–37.3; O2SAT 92–97
[2023-03-16 06:56] LABS: Basophils Percent Auto 0.2 % (0-2); Eosinophils Absolute Auto 0.3 X10*3/uL (0.0-0.4); Eosinophils Percent Auto 2.5 % (0-4); Imm Gran Abs Auto 0.09 X10*3/uL (0.00-0.03); Imm Gran Pct Auto 0.7 % (0.0-0.4); Lymphocytes Absolute Auto 2.3 X10*3/uL (1.2-4.9); Lymphocytes Percent Auto 18.4 % (20-40); MANUAL DIFF FLAG SCAN; Mean Corpuscular HGB Conc 33.2 g/dl (31.0-35.0); Mean Corpuscular Hemoglobin 29.3 pg (27.0-33.0); Mean Corpuscular Volume 88.2 fL (80.0-98.0); Mean Platelet Volume 11.5 fL (9.4-12.3); Monocytes Absolute Auto 1.7 X10*3/uL (0.1-1.2); Monocytes Percent Auto 13.2 % (2-11); NRBC Pct Auto 0.2 /100WBC (0.0-0.2); Neutrophils Absolute Auto 8.1 x10*3/uL (2.0-8.3); Platelet Count 286 X10*3/uL (160-400); Red Blood Count 2.29 X10*6/uL (4.20-5.50); Red Cell Distribution Width 15.9 % (11.0-16.0); SCAN SMEAR FLAG 1; White Blood Count 12.6 X10*3/uL (4.8-10.8)
[2023-03-16 07:23] LABS: Anion Gap 12 (12-20); Blood Urea Nitrogen 9 mg/dL (9-16); Calcium 8.5 mg/dL (8.4-10.2); Carbon Dioxide 24 mmol/L (22-29); Chloride 104 mmol/L (96-108); Creatinine Clr Calc Pharmacy 120.4; Estimated Glomerular Filt Rate > 60; Glucose Random 72 mg/dL (60-115); Potassium 3.5 mmol/L (3.3-5.1); Sodium 136 mmol/L (135-145)
[2023-03-16 07:33] LABS: Hematocrit 20.2 % (37.0-47.0); Hemoglobin 6.7 g/dl (12.0-16.0)
[2023-03-16 07:45] LABS: SLIDE REVIEW VERIFIED
--- NOTE | 2023-03-16 10:16 | MHC.CM.PN ---
Patient is not yet medically cleared for dc (Pleura vac to suction and Chest Xray today); home is the goal and CM will continue to follow.
--- NOTE | 2023-03-16 10:48 | P.PNIM_ITS ---
Subjective Subjective Date of Service: 03/16/23 Interval History: seen and examined this morning follow up for medical consult Reports pleuritic cp, cough, positional lightheadedness. No retrosternal cp. Review of Systems Review of Systems: Yes all other systems are reviewed and are negative Physical Exam 2 Vital Signs: Vital Signs: Last Vital Signs Temp 97.0 F 03/16/23 07:08 Pulse 92 03/16/23 07:47 Resp 18 03/16/23 07:47 BP 122/56 L 03/16/23 07:08 Pulse Ox 93 03/16/23 07:08 O2 Del Method Room Air 03/16/23 07:08 O2 Flow Rate 1 03/12/23 13:20 BMI result Body Mass Index 39.9 Constitutional - Awake and Alert, No apparent distress Eyes - PERRLA, EOMI Cardiovascular - S1S2, RRR, No edema Respiratory - Normal lung expansion, Normal respiratory effort, No respiratory distress, CTA bl, chest tube x2 in place with serosanguinous output Gastrointestinal - NT / ND; +BS; No rebound or guarding Extremities - no calf tenderness bilaterally, no swelling Skin - Warm/Dry Neurological - Alert & oriented x3 Psychological - Appropriate affect Objective Data Active Medications Albuterol Sulfate (Albuterol Sulfate (0.083%) 2.5 Mg/3 Ml Vial.Neb) 2.5 mg INHALE ONCE PRN PRN Reason: Shortness of Breath/Wheezing Albuterol Sulfate (Albuterol Sulfate 90 Mcg 8 Gm Inhaler) 2 puff INHALE DAILY PRN PRN Reason: asthma Albuterol/Ipratropium (Albuterol/Iprat 2.5/0.5mg 3 Ml Ampul.Neb) 3 ml INHALE Q6H PRN PRN Reason: wheezing Aspirin (Aspirin Enteric Coated 81 Mg Tablet.) 81 mg PO DAILY [facility] Last Admin: 03/16/23 09:04 Dose: 81 mg Documented By: RUTHIE Atorvastatin Calcium (Atorvastatin Calcium 40 Mg Tablet) 40 mg PO DAILY [facility] Last Admin: 03/16/23 09:03 Dose: 40 mg Documented By: RUTHIE Docusate Sodium (Docusate Sodium 100 Mg Capsule) 100 mg PO BID [facility] Last Admin: 03/16/23 09:03 Dose: 100 mg Documented By: RUTHIE Fluticasone/Vilanterol (Fluticasone/Vilanterol 100/25 Blst.W.Dev) 1 puff INHALE RDAILY [facility] Last Admin: 03/16/23 07:46 Dose: 1 puff Documented By: RENAN Hydromorphone HCl (Hydromorphone Hcl 0.5 Mg/0.5 Ml Syringe) 0.5 mg IVPUSH Q3H PRN; Protocol PRN Reason: Pain, Severe (Pain Scale 7-10) Last Admin: 03/16/23 09:09 Dose: 0.5 mg Documented By: RUTHIE Hydromorphone HCl (Hydromorphone Hcl 2 Mg Tablet) 2 mg PO Q4H PRN PRN Reason: Pain, Moderate(Pain Scale 4-6) Last Admin: 03/12/23 20:29 Dose: 2 mg Documented By: SERENITY Hydromorphone HCl (Hydromorphone Hcl 2 Mg Tablet) 4 mg PO Q4H PRN PRN Reason: Pain, Severe (Pain Scale 7-10) Last Admin: 03/16/23 06:07 Dose: 4 mg Documented By: BRETT Levothyroxine Sodium (Levothyroxine Sodium 125 Mcg Tablet) 125 mcg PO DAILY@0600 [facility] Last Admin: 03/16/23 06:07 Dose: 125 mcg Documented By: BRETT Lorazepam (Lorazepam 0.5 Mg Tablet) 0.5 mg PO BID PRN PRN Reason: anxiety Last Admin: 03/12/23 20:29 Dose: 0.5 mg Documented By: SERENITY Magnesium Hydroxide (Milk Of Magnesia 30 Ml Oral.Susp) 30 ml PO DAILY PRN PRN Reason: constipation Meclizine HCl (Meclizine Hcl 12.5 Mg Tablet) 12.5 mg PO DAILY PRN PRN Reason: Vertigo Melatonin (Melatonin 3 Mg Tablet) 6 mg PO BEDTIME PRN PRN Reason: Insomnia Non-Formulary Medication (Mesalamine [Apriso]) 1.5 gm PO DAILY [facility] Nortriptyline HCl (Nortriptyline Hcl 10 Mg Capsule) 10 mg PO BEDTIME [facility] Last Admin: 03/15/23 22:01 Dose: 10 mg Documented By: BRETT Omeprazole (Omeprazole 20 Mg Capsule.Dr) 20 mg PO DAILY@0630 [facility] Last Admin: 03/16/23 06:07 Dose: 20 mg Documented By: BRETT Ondansetron HCl (Ondansetron Hcl 4 Mg/2 Ml Vial) 4 mg IVPUSH Q8H PRN PRN Reason: Nausea and Vomiting Last Admin: 03/15/23 06:09 Dose: 4 mg Documented By: DEBORAH Polyethylene Glycol (Polyethylene Glycol 3350 17 Gm Powd.Pack) 17 gm PO DAILY [facility] Last Admin: 03/16/23 09:04 Dose: 17 gm Documented By: RUTHIE Sertraline HCl (Sertraline Hcl 25 Mg Tablet) 125 mg PO DAILY [facility] Last Admin: 03/16/23 09:03 Dose: 125 mg Documented By: RUTHIE Sodium Chloride (0.9 % Sodium Chloride Flush 3 Ml Syringe) 3 ml IVFLUSH QSHIFT [facility] Last Admin: 03/16/23 09:04 Dose: 3 ml Documented By: RUTHIE Ticagrelor (Ticagrelor 90 Mg Tablet) 90 mg PO BID [facility] Last Admin: 03/16/23 09:04 Dose: 90 mg Documented By: RUTHIE Trazodone HCl (Trazodone Hcl 100 Mg Tablet) 100 mg PO BEDTIME PRN PRN Reason: Insomnia Labs 03/16/23 05:56 03/16/23 05:56 Labs: Laboratory Results - last 24 hr 03/12/23 03/14/23 03/16/23 08:12 07:06 05:56 MCV 88.2 MCH 29.3 MCHC 33.2 RDW 15.9 Plt Count 286 D MPV 11.5 Immature Gran % (Auto) 0.7 H Neut % (Auto) 65.0 Lymph % (Auto) 18.4 L [place] % (Auto) 13.2 H Eos % (Auto) 2.5 Baso % (Auto) 0.2 Lymph # (Auto) 2.3 [place] # (Auto) 1.7 H Eos # (Auto) 0.3 Baso # (Auto) 0.0 Abs Immat Gran (auto) 0.09 H Absolute Neuts (auto) 8.1 Absolute Nucleated RBC 0.020 H Nucleated RBC % (auto) 0.2 Smear Tech's Comments VERIFIED Smear Path Review SEE NOTE PT INR Anion Gap 12 Estim Creat Clear Calc 120.4 Estimated GFR > 60 Random Glucose 72 Calcium 8.5 Leuk/Lym Interpretation See Note Blood Type Antibody Screen Crossmatch 03/16/23 09:44 MCV MCH MCHC RDW Plt Count MPV Immature Gran % (Auto) Neut % (Auto) Lymph % (Auto) [place] % (Auto) Eos % (Auto) Baso % (Auto) Lymph # (Auto) [place] # (Auto) Eos # (Auto) Baso # (Auto) Abs Immat Gran (auto) Absolute Neuts (auto) Absolute Nucleated RBC Nucleated RBC % (auto) Smear Tech's Comments Smear Path Review PT 12.5 INR 1.0 Anion Gap Estim Creat Clear Calc Estimated GFR Random Glucose Calcium Leuk/Lym Interpretation Blood Type AB Positive Antibody Screen NEGATIVE Crossmatch See Detail Assessment and Plan (1) Anemia: Status: Acute (2) Pulmonary nodule: Status: Acute (3) Abnormal radiologic finding of lung field: Status: Acute Plan Patient is a 57-year-old female with a PMH significant for moderate persistent asthma, hx of Hodgkin's lymphoma 30 years ago s/p mantle radiation and chemotherapy, radiation-induced CAD s/p stenting, aortic stenosis, mitral regurgitation, hypothyroidism, hx of bariatric surgery, hx of pericarditis, hx of recurrent pleural effusions, and hx of pleurodesis who was admitted under general surgery services for elective thoracotomy and lung biopsy. Hospitalist consult for medical management Left lung thoracotomy right lymph node suspicious on PET scan as well as a left upper lobe/apical suspicious area. previous biopsies by IR were nondiagnostic. POD #1 s/p Left mini thoracotomy, extensive pneumonolysis, wedge resection left upper lobe lung, intercostal nerve block and excision of right groin lymph node management per thoracic Surgery Acute blood loss anemia last H/H from 12.7 (02/11)--> 8.1 (03/13) --> 7.0 (03/14) --> 7.1 (03/15) -->6.7 (03/16) no preoperative labs so chronicity unclear, but likely acute due to acute blood loss from surgical procedure/sanguinous output from chest tube Transfuse 3 units PRBC per thoracic surgery Defer repeat imaging to thoracic surgery follow CBC Monitor blood pressures, stable at time of exam Moderate persistent asthma Not in acute exacerbation Continue home inhalers CAD Continue statin aspirin resumed continue brillinta, s/p cardiac cath with stents 08/29. hold asa Hypothyroidism Continue levothyroxine GERD Continue PPI Mood disorder Continue home meds gerd continue omeprazole Thank you for allowing us to participate in the care of this patient. Will continue following for now. Quality Stroke Does the patient have a stroke diagnosis?: No VTE Prior VTE?: No VTE Risk Level:: Surgical - low VTE Device Contraindication: N/A - Device Ordered VTE Drug Contraindication: N/A - Med Ordered
--- NOTE | 2023-03-16 11:57 | PM.PNTS ---
Subjective Subjective Date of Service: 03/16/23 Interval history: Soreness at incision. H/H continues to drop. Denies dizziness, CP, palpitations, SOB. Physical Exam Vital Signs: Vital Signs: Last Vital Signs Temp 99.2 F 03/16/23 11:26 Pulse 91 03/16/23 11:26 Resp 20 03/16/23 11:26 BP 115/55 L 03/16/23 11:26 Pulse Ox 93 03/16/23 07:08 O2 Del Method Room Air 03/16/23 07:08 O2 Flow Rate 1 03/12/23 13:20 BMI result Body Mass Index 39.9 Const: General: comfortable, no acute distress and alert Orientation/consciousness: patient oriented x3 Chest: Other: chest tube drainage is sanguineous but low thoracotomy incision clean and dry Resp: Effort & Inspection: normal respiratory effort Skin: General skin exam: no rashes or lesions noted and no jaundice Neuro: General: patient oriented x3 and moves all extremities Procedures Date of Service Date of Service: 03/16/23 Progress Note: A&P Assessment and plan (1) Anemia: Status: Acute (2) Pulmonary nodule: Status: Acute Plan POD #4 s/p Excision right groin lymph node and left mini thoracotomy, extensive pneumonolysis, wedge resection left upper lobe lung, intercostal nerve block for history of non-Hodgkin's lymphoma, radiation to chest, left hemithorax pleurodesis, apical left lung process and suspicious right groin lymph node. H/H is unfortunately trending down- Chest tube has had very low output and no collection on CXR to suggest bleed in chest. Chest tube removed at bedside. Will repeat CXR in 1 hr. Ordered 2U PRBC for anemia. Will discuss holding brilinta with hospitalist service although stent was in the last year. Repeat CBC following transfusion, in AM. Time Spent With Patient Time: Total time managing care of this patient today ____ minutes. Quality Stroke Does the patient have a stroke diagnosis?: No VTE Prior VTE?: No VTE Risk Level:: Surgical - low VTE Device Contraindication: N/A - Device Ordered VTE Drug Contraindication: N/A - Med Ordered
[2023-03-16] MEDS: HYDROmorphone HCl 0.5 MG/0.5 ML SYRINGE IVPUSH ×2 (16:16→23:49)
[2023-03-16] MEDS: HYDROmorphone HCl 2 MG TABLET 4 MG PO (21:05)
[2023-03-16] MEDS: Ticagrelor 90 MG TABLET PO (21:05)
[2023-03-16] MEDS: Nortriptyline HCl 10 MG CAPSULE PO (21:05)
[2023-03-16] MEDS: Docusate Sodium 100 MG CAPSULE PO (21:05)
[2023-03-16] MEDS: 0.9 % Sodium Chloride Flush 3 ML SYRINGE IVFLUSH (21:06)
[2023-03-16 21:22] LABS: Hematocrit 29.9 % (37.0-47.0); Hemoglobin 10.1 g/dl (12.0-16.0); Mean Corpuscular HGB Conc 33.8 g/dl (31.0-35.0); Mean Corpuscular Hemoglobin 29.8 pg (27.0-33.0); Mean Corpuscular Volume 88.2 fL (80.0-98.0); Mean Platelet Volume 10.4 fL (9.4-12.3); NRBC Pct Auto 0.7 /100WBC (0.0-0.2); Platelet Count 277 X10*3/uL (160-400); Red Blood Count 3.39 X10*6/uL (4.20-5.50); Red Cell Distribution Width 14.9 % (11.0-16.0); White Blood Count 13.9 X10*3/uL (4.8-10.8)
[2023-03-17] VITALS (7 sets, daily range): BP systolic 111–131; BP diastolic 49–63; PULSE 79–96; RESP 16–20; TEMP 36.1–36.9; O2SAT 93–98
[2023-03-17] MEDS: Levothyroxine Sodium 125 MCG TABLET PO (06:33)
[2023-03-17] MEDS: Omeprazole 20 MG CAPSULE.DR PO (06:33)
[2023-03-17] MEDS: HYDROmorphone HCl 2 MG TABLET PO ×3 (06:36→19:57)
[2023-03-17 07:39] LABS: Basophils Percent Auto 0.3 % (0-2); Eosinophils Absolute Auto 0.4 X10*3/uL (0.0-0.4); Eosinophils Percent Auto 3.2 % (0-4); Hemoglobin 9.5 g/dl (12.0-16.0); Imm Gran Abs Auto 0.21 X10*3/uL (0.00-0.03); Imm Gran Pct Auto 1.7 % (0.0-0.4); Lymphocytes Absolute Auto 1.5 X10*3/uL (1.2-4.9); Lymphocytes Percent Auto 12.1 % (20-40); MANUAL DIFF FLAG SCAN; Mean Corpuscular HGB Conc 33.9 g/dl (31.0-35.0); Mean Corpuscular Hemoglobin 29.7 pg (27.0-33.0); Mean Corpuscular Volume 87.5 fL (80.0-98.0); Mean Platelet Volume 10.8 fL (9.4-12.3); Monocytes Absolute Auto 1.9 X10*3/uL (0.1-1.2); Monocytes Percent Auto 15.3 % (2-11); Neutrophils Absolute Auto 8.2 x10*3/uL (2.0-8.3); Neutrophils Percent Auto 67.4 % (45-73); Platelet Count 294 X10*3/uL (160-400); Red Cell Distribution Width 15.1 % (11.0-16.0); SCAN SMEAR FLAG 1; White Blood Count 12.2 X10*3/uL (4.8-10.8)
[2023-03-17 07:40] LABS: NRBC Pct Auto 1.1 /100WBC (0.0-0.2)
[2023-03-17 08:11] LABS: SLIDE REVIEW VERIFIED
[2023-03-17] MEDS: Atorvastatin Calcium 40 MG TABLET PO (08:48)
[2023-03-17] MEDS: Docusate Sodium 100 MG CAPSULE PO ×2 (08:48→19:57)
[2023-03-17] MEDS: Ticagrelor 90 MG TABLET PO ×2 (08:48→19:57)
[2023-03-17] MEDS: Sertraline HCL 25 MG TABLET 125 MG PO (08:48)
[2023-03-17] MEDS: polyethylene glycoL 3350 17 GM POWD.PACK PO (08:48)
[2023-03-17] MEDS: 0.9 % Sodium Chloride Flush 3 ML SYRINGE IVFLUSH ×2 (08:49→19:58)
[2023-03-17 13:50] LABS: Hematocrit 28.9 % (37.0-47.0)
[2023-03-17] MEDS: Milk of Magnesia 30 ML ORAL.SUSP PO (13:50)
[2023-03-17] MEDS: HYDROmorphone HCl 2 MG TABLET 4 MG PO (13:50)
--- NOTE | 2023-03-17 14:24 | MHC.CM.PN ---
Per Saurabh, plan is home tomorrow with [facility]NA; a referral has been made to [facility]. CM will follow.
--- NOTE | 2023-03-17 14:41 | PM.PNTS ---
Subjective Subjective Date of Service: 03/17/23 Interval history: Feels better today. Pain is slowly improved. Using incentive spirometer, OOB. Physical Exam Vital Signs: Vital Signs: Last Vital Signs Temp 98.3 F 03/17/23 11:19 Pulse 83 03/17/23 11:19 Resp 18 03/17/23 11:19 BP 111/56 L 03/17/23 11:19 Pulse Ox 95 03/17/23 11:19 O2 Del Method Room Air 03/17/23 11:19 O2 Flow Rate 1 03/12/23 13:20 BMI result Body Mass Index 39.9 Const: General: comfortable, no acute distress and alert Orientation/consciousness: patient oriented x3 Chest: Other: thoracotomy incision clean, chest tube site with small amt of drainage Resp: Effort & Inspection: normal respiratory effort Skin: General skin exam: no rashes or lesions noted Neuro: General: patient oriented x3 Procedures Date of Service Date of Service: 03/17/23 Progress Note: A&P Assessment and plan (1) Anemia: Status: Acute (2) Lymphadenopathy: Status: Acute (3) Pulmonary nodule: Status: Acute Plan POD #5 s/p Excision right groin lymph node and left mini thoracotomy, extensive pneumonolysis, wedge resection left upper lobe lung, intercostal nerve block for history of non-Hodgkin's lymphoma, radiation to chest, left hemithorax pleurodesis, apical left lung process and suspicious right groin lymph node. H/H remains stable s/p 2U PRBC. VSS. Incision clean, chest tube dressing intact. Plan for dc to home tomorrow with VNA services. Patient comfortable with plan. Time Spent With Patient Time: Total time managing care of this patient today ____ minutes. Quality Stroke Does the patient have a stroke diagnosis?: No VTE Prior VTE?: No VTE Risk Level:: Surgical - low VTE Device Contraindication: N/A - Device Ordered VTE Drug Contraindication: N/A - Med Ordered
[2023-03-17] MEDS: Nortriptyline HCl 10 MG CAPSULE PO (19:57)
[2023-03-18] MEDS: HYDROmorphone HCl 2 MG TABLET PO ×2 (00:05→05:38)
[2023-03-18 01:34] VITALS: RESP 16
[2023-03-18 04:00] VITALS: BP 111/55; PULSE 87; RESP 20; TEMP 36.3; O2SAT 93
[2023-03-18] MEDS: Levothyroxine Sodium 125 MCG TABLET PO (05:37)
[2023-03-18] MEDS: Omeprazole 20 MG CAPSULE.DR PO (05:37)
[2023-03-18 07:44] VITALS: BP 123/45; PULSE 75; RESP 14; TEMP 36.2; O2SAT 98
[2023-03-18 07:48] VITALS: PULSE 80; RESP 16; O2SAT 97
[2023-03-18] MEDS: Docusate Sodium 100 MG CAPSULE PO (08:46)
[2023-03-18] MEDS: Atorvastatin Calcium 40 MG TABLET PO (08:46)
[2023-03-18] MEDS: Ticagrelor 90 MG TABLET PO (08:47)
[2023-03-18] MEDS: 0.9 % Sodium Chloride Flush 3 ML SYRINGE IVFLUSH (08:47)
[2023-03-18] MEDS: Sertraline HCL 25 MG TABLET 125 MG PO (08:47)
--- NOTE | 2023-03-18 09:28 | PM.PNTS ---
Subjective Subjective Date of Service: 03/18/23 Interval history: Feels ready for discharge. Pain comfortable on PO analgesics. Still no BM but on colace, miralax and milk of magnesia. Physical Exam Vital Signs: Vital Signs: Last Vital Signs Temp 97.2 F 03/18/23 07:44 Pulse 80 03/18/23 07:48 Resp 16 03/18/23 07:48 BP 123/45 L 03/18/23 07:44 Pulse Ox 98 03/18/23 07:44 O2 Del Method Room Air 03/18/23 07:44 O2 Flow Rate 1 03/12/23 13:20 BMI result Body Mass Index 39.9 Const: General: comfortable, no acute distress and alert Orientation/consciousness: patient oriented x3 Chest: Other: thoracotomy incision clean, chest tube site clean Resp: Effort & Inspection: normal respiratory effort Skin: General skin exam: no rashes or lesions noted Neuro: General: patient oriented x3 and moves all extremities Procedures Date of Service Date of Service: 03/18/23 Progress Note: A&P Assessment and plan (1) S/P thoracotomy: Status: Acute (2) Anemia: Status: Acute (3) Lymphadenopathy: Status: Acute Plan POD #6 s/p Excision right groin lymph node and left mini thoracotomy, extensive pneumonolysis, wedge resection left upper lobe lung, intercostal nerve block for history of non-Hodgkin's lymphoma, radiation to chest, left hemithorax pleurodesis, apical left lung process and suspicious right groin lymph node. Doing well and ready for discharge today. Incision clean, chest tube dressing intact. Plan for dc to home today with VNA services. Patient comfortable with plan. Continue home bowel regimen. F/u in office in 1 week. Time Spent With Patient Time: Total time managing care of this patient today ____ minutes. Quality Stroke Does the patient have a stroke diagnosis?: No VTE Prior VTE?: No VTE Risk Level:: Surgical - low VTE Device Contraindication: N/A - Device Ordered VTE Drug Contraindication: N/A - Med Ordered
--- NOTE | 2023-03-18 09:34 | MHC.CM.PN ---
Patient has been medically cleared for dc to home today, with services. A referral was made to [facility], who has been notified of today's dc.
[2023-03-18] MEDS: HYDROmorphone HCl 0.5 MG/0.5 ML SYRINGE IVPUSH (10:29)
--- NOTE | 2023-03-19 08:30 | PM.DS ---
DS: Providers Provider Date of Service: 03/18/23 Date of admission: 03/12/23 11:11 Primary care physician: Huong Johnson MD Attending physician on admission: Bartolome Washington Consults: 03/12/23 11:11 Consult to Hospitalist Routine Comment: Consulting Provider: Hospitalist Reason For Exam: s/p thoracotomy, PRASHANT lesion biopsy, asthma, CAD Attending physician on discharge: Bartolome Washington DS: Diagnosis Discharge Diagnosis (1) S/P thoracotomy: Status: Acute (2) Anemia: Status: Acute (3) Lymphadenopathy: Status: Acute DS: Summary Hospital Course Hospital Course: HPI AT ADMISSION: Patient presents with her . Patient has a very intricate and complex past medical and surgical history. In summary, she had a lymphoma years ago and received chemotherapy and chest radiation. Patient had been in remission. She now presents with symptoms of night sweats, fever, and chills. Patient has had extensive workup after radiographic studies demonstrated a right lymph node suspicious on PET scan as well as a left upper lobe/apical suspicious area. Both of these biopsies by intervention Radiology were nondiagnostic. Patient also had a history of left thoracoscopic pleurodesis for persistent pneumothorax in the past. It was recommended to proceed with excisional biopsy of right groin lymph node with frozen section with possible left mini thoractomy and open biopsy of the left apical process if the lymph node is non diagnostic. She now presents for the planned procedure. HOSPITAL COURSE: On 03/12/23, excision right groin lymph node and left mini thoracotomy, extensive pneumonolysis, wedge resection left upper lobe lung, intercostal nerve block was performed by Dr. Washington without immediate complication. The patient tolerated the procedure well and was admitted to the medical/telemetry floor for observation. The patient did fairly well post operatively. On POD#1, her pain was fairly well controlled with analgesics. She had low sanguineous chest tube output with a small air leak. Her CXR showed no acute process. Her chest tube was placed to water seal. She was gotten OOB and encouraged to use the incentive spirometer. She did have a post op anemia that at first remained stable and her vitals were stable and asymptomatoc. However it continued to drift down during her stay and her hematocrit became <7 and was therefore transfused 2U PRBC with appropriate rise. During this time, she had no evidence of hemothorax on imaging and chest tube had scanty sanguineous output. She had no evidence of air leak and CRX showed no acute disease and her chest tube was removed on POD #4. Her H/H remained stable following the transfusion and she needed no further transfusion. Her pain slowly improved and became comfortable on PO analgesics. She felt ready for discharge. On the day of discharge, she had a clean incision and chest tube site. She had good pain control. She was tolerating a solid diet. She was passing flatus however had no BM and her bowel regimen was therefore continued upon discharge. She was discharged to home on 03/18/23 in stable condition with f/u in office in 1 week. Chest tube site dressing changes: every other day with xeroform, nonwoven sponge and tape. Status at Discharge Functional status at discharge: independent ambulation Overall status at discharge: patient is progressing back to baseline Time Attestation Discharge coordination time: Greater than 30 minutes Quality: Safe Use of Opioids Does Pt have an Active Cancer Diagnosis on the Problem List?: No Quality: Stroke Does the patient have a stroke diagnosis?: No Physical Exam Vital Signs: Vital Signs: Last Vital Signs Temp 97.2 F 03/18/23 07:44 Pulse 80 03/18/23 07:48 Resp 16 03/18/23 07:48 BP 123/45 L 03/18/23 07:44 Pulse Ox 98 03/18/23 07:44 O2 Del Method Room Air 03/18/23 07:44 O2 Flow Rate 1 03/12/23 13:20 BMI result Body Mass Index 39.9 Const: General: comfortable and alert; No no acute distress Orientation/consciousness: patient oriented x3 Chest: Other: left thoractomy incision clean, chest tube dressing intact Chest palpation & inspection: tenderness (mild incisional) Resp: Effort & Inspection: normal respiratory effort Skin: General skin exam: no rashes or lesions noted and no jaundice Neuro: General: patient oriented x3 DS: Data Data Completed and Pending Completed studies during hospitalization [Text1]: Pending at discharge 03/12/23 08:12 Surgical [PTH] Stat Pending studies at discharge: Pending at discharge 03/12/23 10:47 Surgical [PTH] Routine Discharge Plan Discharge Anticipated Discharge Date/Time: 03/17/23 15:57 Patient Disposition: Home Health Service Discharge Diagnosis: s/p thoracotomy, wedge resection right upper lung Referrals: Patricia BRADSHAW [Outside] - 1 Week Huong Johnson MD [Primary Care Provider] - 1 Week Bartolome Washington MD [Physician] - 1 Week Discharge Medications: New docusate sodium [Colace] 100 mg capsule 100 mg PO BID PRN (Reason: constipation) Qty: 30 0RF hydromorphone [Dilaudid] 4 mg tablet 4 mg PO Q4H PRN (Reason: pain) Qty: 20 0RF Rx Instructions: Partial Fill upon patient request. (DME) Ultra-Light Rollator Misc See Rx Instructions .Route Qty: 1 0RF Rx Instructions: As directed Continued atorvastatin 40 mg tablet 40 mg PO DAILY Qty: 30 6RF mesalamine [Apriso] 0.375 gram capsule,extended release 24hr 1.5 g PO DAILY Qty: 120 2RF (DME) cane Device See Rx Instructions .Route Qty: 1 0RF Rx Instructions: As directed levothyroxine [Levoxyl] 125 mcg Tablet 125 mcg PO DAILY sertraline 100 mg tablet 125 mg PO DAILY pantoprazole 40 mg tablet,delayed release (DR/EC) 40 mg PO DAILY morphine 15 mg tablet 15 mg PO BID PRN (Reason: Pain) meclizine 12.5 mg tablet 12.5 mg PO DAILY PRN (Reason: Vertigo) lorazepam 0.5 mg tablet 0.5 mg PO BID PRN (Reason: anxiety) Ubrelvy 50 mg tablet 50 mg PO DAILY PRN (Reason: headaches) Brilinta 90 mg tablet 90 mg PO BID nortriptyline 10 mg capsule 10 mg PO BEDTIME aspirin [Ecotrin Low Strength] 81 mg tablet,delayed release (DR/EC) 81 mg PO DAILY Qty: 30 5RF albuterol sulfate 90 mcg/actuation HFA aerosol inhaler 2 puff inhalation DAILY PRN (Reason: asthma) cholecalciferol (vitamin D3) 50 mcg (2,000 unit) capsule 50 mcg PO DAILY trazodone 50 mg tablet 100 mg PO BEDTIME PRN (Reason: Insomnia) ipratropium-albuterol 0.5 mg-3 mg(2.5 mg base)/3 mL solution for nebulization 3 ml inhalation Q6-8H PRN (Reason: wheezing) Qty: 90 3RF No Action budesonide-formoterol [Symbicort] 80-4.5 mcg/actuation HFA aerosol inhaler 2 puff inhalation Q12H Qty: 10.2 6RF Discharge Orders: Discharge Order (Routine); Ordered 03/18/23 Ordered By: Clotilde Mitchell Diet: Advance to usual diet Activity on Discharge: No heavy lifting Stand Alone Forms: Patient Portal Discharge page Activity Restrictions/Additional Instructions: Apply an ice pack for short intervals (20 minutes on, followed by at least 20 minutes off). Do not apply heat. Do not use creams, lotions, or topical antibiotics. These can cause infection or allergic reaction. Ok to shower. You have steri strips (small white cloth strips) covering your incision- these will fall off ~1 week. Chest tube site: change every other day with xeroform, nonwoven sponge and tape. Follow up in office with Dr. Washington in 1 week. ([phone]) No heavy lifting (>10lbs) or strenuous activity! Call Your Doctor If: -Your temperature exceeds 101.5? F -You experience excessive pain or swelling -You have an unexpected reaction to medication -You have excessive bleeding -You experience continued vomiting/nausea -Your incision begins to separate -Your incision shows signs of infection such as increased redness, swelling, excessive pain, drainage (light blood or clear fluid is normal) or heat Care Plan Goals: Return to baseline health and resume normal activities following recovery period. Health Concerns: lymphadenopathy hx of lymphoma pulmonary nodule anemia Plan of Treatment: Excision right groin lymph node, Left mini thoracotomy, extensive pneumonolysis, wedge resection left upper lobe lung, intercostal nerve block home with VNA f/u in office in 1 week Assessment: Doing well post op Discharge Date/Time: 03/18/23 12:46
== END 2023-03-18 12:46 | disposition home health service (06) | DRG 121 ==
LOC: HO.SSSA 11:36 → HO.IMC 15:53
PROVIDERS: Internal Medicine; Physician Assistant; Physician Assistant Surgical; Admitting Provider Surgery; PCP Internal Medicine; Visit Provider Surgery
PROC: 0BBG0ZX Excision of Left Upper Lung Lobe, Open Approach, Diagnostic (ICD-10-PCS; principal; 2023-03-12 07:30)
PROC: 0BBG0ZX Excision of Left Upper Lung Lobe, Open Approach, Diagnostic (ICD-10-PCS; CPT 38500; 2023-03-12 07:30)
DX: R91.1 Solitary pulmonary nodule (principal); D62 Acute posthemorrhagic anemia; I25.10 Atherosclerotic heart disease of native coronary artery without angina pectoris; R59.0 Localized enlarged lymph nodes; J98.4 Other disorders of lung; E03.9 Hypothyroidism, unspecified; K21.9 Gastro-esophageal reflux disease without esophagitis; F39 Unspecified mood [affective] disorder; Z85.72 Personal history of non-Hodgkin lymphomas; T66.XXXS Radiation sickness, unspecified, sequela; I08.0 Rheumatic disorders of both mitral and aortic valves; Z79.890 Hormone replacement therapy; J45.40 Moderate persistent asthma, uncomplicated; Z79.82 Long term (current) use of aspirin; Z79.899 Other long term (current) drug therapy
CPT/HCPCS: 36415; 71045; 80048; 82728; 83540; 83615; 85014; 85018; 85025; 85027; 85610; 86850; 86900; 86901; 86920; 86923; 88161; 88184; 88185; 88305; 88307; 88329; 88331; 94640; 99024; A7041; C9290; J0131; J0665; J0690; J1100; J1170; J1596; J2250; J2371; J2405; J2704; J2795; J3010; J7120; P9016

== ENCOUNTER → 2023-03-12 11:11 | Outpatient (BNV) | payer OTHER, SELFPAY ==
[2022-10-09 07:53] VITALS: BP 114/58; BP 156/54
== END ==
PROVIDERS: Admitting Provider Surgery; PCP Internal Medicine; Visit Provider Surgery
DX: Z98.890 Other specified postprocedural states (principal); D64.9 Anemia, unspecified; R59.1 Generalized enlarged lymph nodes
CPT/HCPCS: 32505; 38531; 99024

== ENCOUNTER → 2023-03-12 11:11 | Outpatient (BNV) | payer OTHER, SELFPAY ==
[2022-10-09 07:53] VITALS: BP 114/58; BP 156/54
== END ==
PROVIDERS: Admitting Provider Surgery; PCP Internal Medicine; Visit Provider Student in an Organized Health Care Education/Training Program
DX: D64.9 Anemia, unspecified (principal); R91.1 Solitary pulmonary nodule; R91.8 Other nonspecific abnormal finding of lung field
CPT/HCPCS: 99222; 99232

== ENCOUNTER 2023-03-23 09:07 | Outpatient (AMB) | payer OTHER, SELFPAY ==
[2022-10-09 07:53] VITALS: BP 114/58; BP 156/54
--- NOTE | 2023-03-23 09:18 | A.OFFVIS_ITS ---
Intake Vital Signs 03/23/23 09:19 Weight 214 lb BP 149/65 H Blood Pressure Location Rt radial Position Sitting Pulse 104 H Intake Visit Reasons: S/P lymph node and lung biopsy Intake Note: Patient here s/p lymph node and lung biopsy on 03-12-23. Reports incisions healing well. Still taking rx pain meds. 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 She is incisional discomfort. She has no respiratory issues or complaints. Pathology was reviewed. [facility] Medical History History of mantle field radiation therapy (~1992) Environmental allergies History of shingles CAD (coronary artery disease) Stented coronary artery (~2022) Hyperlipidemia Obesity Mitral stenosis Anxiety and depression Tubular adenoma of colon History of Hodgkin's lymphoma (~1992) Radiation-induced heart disease Aortic stenosis Asthma Hypothyroid Hepatic steatosis GERD (gastroesophageal reflux disease) Herpes Surgical History History of lymph node excision (03/12/23) History of lung biopsy (02/11/23) History of repair of hiatal hernia (~2017) History of thoracentesis (~2018) History of ankle surgery History of section History of colonoscopy History of heart artery stent (~2022) History of arthroscopy of right shoulder History of sleeve gastrectomy (~2017) History of esophagogastroduodenoscopy (EGD) History of cholecystectomy Family History Mother Colon cancer Father Hypertension Prostate cancer Son Diabetes Daughter Autism Social History Household Members: Spouse and Family Housing: House Are you a primary transitions rn care coordinator to a significant other at home: No Do you presently have visiting nurse or other home services: No Alcohol intake: current Alcohol intake frequency: holidays/special occasions only Patient Tobacco Use Status: Never used Tobacco e-Cigarette/Vaping Use: Never Used Substance Use Type: Marijuana service: No 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: employed 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 Good breath sounds bilaterally equal. Assessment & Plan Assessment & Plan (1) S/P thoracotomy: Code(s): Z98.890 - Other specified postprocedural states (2) Pleural thickening: Code(s): J92.9 - Pleural plaque without asbestos Plan Patient was reassured that her chest discomfort is expected. She is only week and half post surgery. It will take anywhere from 2 to 6 more months before she is fully convalesced from her major surgical procedure. All questions answered. She will see me as directed or p.r.n. Coding Level of Care Code Global (54449) Diagnoses S/P thoracotomy Z98.890 Pleural thickening J92.9
[2023-03-23 09:19] VITALS: BP 149/65; PULSE 104
== END 2023-03-23 09:32 | disposition home or self-care (01) ==
PROVIDERS: PCP Internal Medicine; Visit Provider Surgery
DX: Z98.890 Other specified postprocedural states (principal); J92.9 Pleural plaque without asbestos
CPT/HCPCS: 99024

== ENCOUNTER 2023-03-23 09:07 | Outpatient (AMB) | payer OTHER, SELFPAY ==
[2022-10-09 07:53] VITALS: BP 114/58; BP 156/54
--- NOTE | 2023-03-23 09:14 | MHC.OFFVIS ---
Intake Vital Signs 03/23/23 09:14 03/23/23 09:29 Height 5 ft 2 in 5 ft 2 in Weight 214 lb BMI 39.1 BP 149/65 H Blood Pressure Location Rt radial Position Sitting Pulse 104 H Intake Visit Reasons: f/u per DC [employer] Rental Service Attendant Required: No Allergies oxycodone [From PERCOCET] Allergy (Intermediate, Verified 03/23/23 09:32) HIVES Sulfa (Sulfonamide Antibiotics) [SULFA (SULFONAMIDE ANTIBIOTICS)] Allergy (Intermediate, Verified 03/23/23 09:32) HIVES diatrizoate meglumine [Gastrografin] Allergy (Unknown, Verified 03/23/23 09:32) red rash Medication List - Last Reconciled 03/23/23 by NAV Romero albuterol sulfate 90 mcg/actuation 2 puffs inhalation DAILY PRN aspirin (Ecotrin Low Strength) 81 mg PO DAILY atorvastatin 40 mg PO DAILY cane As directed cholecalciferol (vitamin D3) 50 mcg PO DAILY docusate sodium (Colace) 100 mg PO BID PRN hydromorphone (Dilaudid) 4 mg PO Q4H PRN hydromorphone (Dilaudid) 4 mg PO Q4H PRN ipratropium-albuterol 0.5 mg-3 mg(2.5 mg base)/3 mL 3 mL inhalation Q6-8H PRN levothyroxine (Levoxyl) 125 mcg PO DAILY lorazepam 0.5 mg PO BID PRN meclizine 12.5 mg PO DAILY PRN mesalamine ER (Apriso) 1.5 grams (4 x 0.375 gram) PO DAILY morphine 15 mg PO BID PRN nortriptyline 10 mg PO BEDTIME pantoprazole 40 mg PO DAILY sertraline 125 mg PO DAILY sertraline 25 mg PO DAILY Symbicort 80-4.5 mcg/actuation (budesonide-formoterol) 2 puffs inhalation Q12H NS ticagrelor (Brilinta) 90 mg PO BID trazodone 100 mg PO BEDTIME PRN ubrogepant (Ubrelvy) 50 mg PO DAILY PRN walker (Ultra-Light Rollator misc) As directed HPI f/u per DC HPI Details Rose Marie is a 56-year-old female with past medical history of Hodgkin's lymphoma and mantle radiation, mild to moderate aortic stenosis, [id number] mitral valve stenosis. She 08/21/2022 underwent cardiac catheterization showing significant proximal RCA stenosis and a KAMRYN was placed. On follow-up visit she reported feeling well with no symptoms. She was started in cardiac rehab. Early November she started with chest pains, ED eval showed no acute findings. Further java j2ee technical lead towards diagnosis of pericarditis and was treated with colchicine, ibuprofen and then prednisone. She then had abnormal findings on a chest x-ray leading to eventual lung biopsy. She underwent thoracotomy with wedge resection, biopsy on 03/12/2023 and was discharged on 03/19/2023. She did have issues with anemia during her admission requiring 2 units of packed cells. No cardiac complications noted. Today she reports that she is feeling weak from her hospitalization and procedure. She has discomfort along her left back and side from her surgical incision. She has shortness of breath with activity. She has been doing only very light activity since her hospital discharge. She states that occasionally she will get a small pain in her left chest region like where she felt the pericarditis symptom. Overall her pericarditis pain has nearly fully resolved. She has not having any PND, orthopnea or edema. No palpitations, lightheadedness, presyncope, syncope, falls. Taking all meds as directed. is present. [facility] Medical History History of mantle field radiation therapy (~1992) Environmental allergies History of shingles CAD (coronary artery disease) Stented coronary artery (~2022) Hyperlipidemia Obesity Mitral stenosis Anxiety and depression Tubular adenoma of colon History of Hodgkin's lymphoma (~1992) Radiation-induced heart disease Aortic stenosis Asthma Hypothyroid Hepatic steatosis GERD (gastroesophageal reflux disease) Herpes Surgical History History of lymph node excision (03/12/23) History of lung biopsy (02/11/23) History of repair of hiatal hernia (~2017) History of thoracentesis (~2018) History of ankle surgery History of section History of colonoscopy History of heart artery stent (~2022) History of arthroscopy of right shoulder History of sleeve gastrectomy (~2017) History of esophagogastroduodenoscopy (EGD) History of cholecystectomy Family History Mother Colon cancer Father Hypertension Prostate cancer Son Diabetes Daughter Autism Social History Household Members: Spouse and Family Housing: House Are you a primary health care consultant to a significant other at home: No Do you presently have visiting nurse or other home services: No Alcohol intake: current Alcohol intake frequency: holidays/special occasions only Patient Tobacco Use Status: Never used Tobacco e-Cigarette/Vaping Use: Never Used Substance Use Type: Marijuana service: No 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: employed 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 Review of Systems Const Details: lung biopsy/ wedge resection 03/12/23 - still in recovery phase All systems reviewed & are unremarkable except as noted in HPI and below Reports weakness ENT Denies dizziness Card Reports chest pain, Denies chest pain at rest, Denies chest pain with activity, Denies rapid heart rate, Denies pedal edema, Denies edema, Denies leg edema, Denies lightheadedness, Denies palpitations, Reports dyspnea, Reports dyspnea on exertion and Denies orthopnea Resp Denies cough, Reports dyspnea and Reports dyspnea on exertion GI Denies hematochezia and Denies change in stool character Musc Denies abnormal gait, Denies limited range of motion, Denies muscle cramps, Reports muscle weakness, Denies numbness, Denies radiating pain into limb, Denies stiffness and Denies tingling Neuro Denies abnormal gait, Denies dizziness, Denies numbness, Denies tingling and Reports weakness Endo Denies palpitations Physical Exam Vital Signs: Last Vital Signs Pulse 104 H 03/23/23 09:29 BP 149/65 H 03/23/23 09:29 BMI result Body Mass Index 39.1 Const General: cooperative, healthy appearing, comfortable and no acute distress Orientation/consciousness: patient oriented x3 Neck Neck: Yes normal visual inspection Resp Other: Thoracotomy incision left posterior / lateral chest. fully intact, swelling noted, chest tube sites intact. No drainage noted. Effort & Inspection: normal respiratory effort Auscultation: clear to auscultation bilaterally, no rales, no rhonchi and no wheezes Cardio Jugular venous distension: no JVD Rate: regular rate Rhythm: regular rhythm Heart sounds: S1 normal heart sound present, S2 normal heart sound present, no gallops, no murmurs and no rubs Peripheral pulses: Peripheral pulses 2+ throughout GI Inspection: Yes normal to inspection Skin General skin exam: no rashes or lesions noted Neuro General: patient oriented x3 Extrem General: Yes normal to inspection, No no pedal edema and No calf tenderness Psych Appearance: grossly normal Mental Status: mental status grossly normal Speech and movement: Normal speech and movement present Assessment & Plan Assessment & Plan (1) Pericarditis: Code(s): I31.9 - Disease of pericardium, unspecified Plan: On last visit she reported a new or chest discomfort, left-sided that was worse when laying down. Symptoms sounded most like pericarditis. EKG did not show any ST abnormalities. A D-dimer was normal. High sensitivity CRP was elevated at 1.6. Sed rate elevated at 21. An echocardiogram was done on 12/03/2022 showing EF 60-65%, no regional wall motion abnormalities, normal RV and no gross pericardial effusion. She was treated for pericarditis with use of colchicine. Ibuprofen was avoided per the recommendation of her GI provider due to risk of exacerbating her ileitis. She did require use of prednisone which became prolonged with slow gradual wean. Her symptom took many weeks to resolve. At this point she is feeling much better as far as the pericarditis. She has no chest discomfort in a laying down position. Her med list no longer includes colchicine. It had been used for 3 months. Labs done 02/23/2023 showed sed rate normal at 8 and CRP high sensitivity 1.2. If she has recurrent symptoms then will need to restart on colchicine. (2) S/P cardiac catheterization: Onset Date: ~2022 Comment: 08/21/2022. Left main 20% stenosis, proximal RCA 80% stenosis angioplasty and KAMRYN placed, no significant gradient on pullback across aortic valve, wedge 10, PA 03/12, no obvious mitral stenosis Code(s): Z98.890 - Other specified postprocedural states Plan: Cardiac catheterization done on 08/21/2022 proximal RCA 80% stenosis. Angioplasty and KAMRYN placed. PA pressure is normal. She was placed on aspirin indefinitely, Brilinta 90 mg b.i.d. uninterrupted for at least 1 year. Atorvastatin 40 mg daily. Had been in cardiac rehab. She stopped with the pericarditis and now she is having pulmonary issues and is yet to restart. No reports of anginal sounding symptoms. Continue current med management (3) CAD (coronary artery disease): Comment: (radiation induced heart disease - s/p stent to RCA 08/15/22) Code(s): I25.10 - Atherosclerotic heart disease of [place] coronary artery without angina pectoris Qualifiers: Associated angina: with unspecified form of angina Coronary Disease-Associated Artery/Lesion type: [place] artery [place] vs. transplanted heart: [place] heart Qualified Code(s): I25.119 - Atherosclerotic heart disease of [place] coronary artery with unspecified angina pectoris Plan: As above (4) History of heart artery stent: Onset Date: ~2022 Comment: (Stent to RCA [80% occluded] - Dr. Mclaughlin, [facility] [place]) Code(s): Z95.5 - Presence of coronary angioplasty implant and graft Plan: As above (5) Mitral stenosis: Comment: (05/19/22 Echo = [id number] mitral valve stenosis, calcific mitral annular changes -non rheumatic) Code(s): I05.0 - Rheumatic mitral stenosis Qualifiers: Cardiac valve disease etiology: nonrheumatic Qualified Code(s): I34.2 - Nonrheumatic mitral (valve) stenosis Plan: Last echocardiogram 05/19/2022 showing mild to moderate mitral valve stenosis. Cardiac catheterization performed showing no obvious mitral stenosis. Plan for recheck of echo 1 year from last, due May 2023 (6) Aortic stenosis: Comment: (05/19/22 Echo = [id number] aortic & mitral valve stenosis) Code(s): I35.0 - Nonrheumatic aortic (valve) stenosis Qualifiers: Cardiac valve disease etiology: nonrheumatic Qualified Code(s): I35.0 - Nonrheumatic aortic (valve) stenosis Plan: Last echocardiogram showing mild to moderate aortic stenosis. Cardiac catheterization performed showing no significant gradient across the aortic valve. Will continue to follow valve disease with periodically echoes (7) Radiation-induced heart disease: Comment: (s/p chest radiation for Hodgkins in 1992; s/p stent to RCA - 08/15/22) Code(s): I51.9 - Heart disease, unspecified Plan: History of chest radiation 1992 for Hodgkin's lymphoma (8) Hyperlipidemia: Code(s): E78.5 - Hyperlipidemia, unspecified Qualifiers: Hyperlipidemia type: unspecified Qualified Code(s): E78.5 - Hyperlipidemia, unspecified Plan: [place] LDL goal less than 70 in patient with CAD. Recently started on atorvastatin 40 mg daily. Labs done on 10/17/2022 showed LDL 69 (9) Abnormal TSH: Code(s): R79.89 - Other specified abnormal findings of blood chemistry Plan: Runs low TSH, not new for her. Last TSH on 02/23/2023 was 0.06. She has no reports of heart palpitations. Will forward to her PCP for review (10) Pulmonary nodule: Code(s): R91.1 - Solitary pulmonary nodule Plan: Being followed by surgery and pulmonology. She did undergo a thoracotomy with wedge resection, biopsy on 03/12/2022. She is early in her recovery and does report feeling generalized weakness, shortness of breath with activity and left-sided discomfort. (11) S/P thoracotomy: Code(s): Z98.890 - Other specified postprocedural states Plan: As above (12) Hospital discharge follow-up: Code(s): Z09 - Encounter for follow-up examination after completed treatment for conditions other than malignant neoplasm Plan: As above Plan Time spent on chart review, documentation, interview and assessment Orders: Orders CA echo transthoracic complete 2 Months I05.0 - Rheumatic mitral stenosis, I25.10 - Atherosclerotic heart disease of [place] coronary artery without angina pectoris, I35.0 - Nonrheumatic aortic (valve) stenosis Coding Level of Care Code Est Pt Level 4 (84121) Diagnoses Pericarditis I31.9 S/P cardiac catheterization Z98.890 Coronary artery disease involving [place] coronary artery of [place] heart with angina pectoris I25.119 Associated angina: with unspecified form of angina Coronary Disease-Associated Artery/Lesion type: [place] artery [place] vs. transplanted heart: [place] heart History of heart artery stent Z95.5 Nonrheumatic mitral valve stenosis I34.2 Cardiac valve disease etiology: nonrheumatic Nonrheumatic aortic valve stenosis I35.0 Cardiac valve disease etiology: nonrheumatic Radiation-induced heart disease I51.9 Hyperlipidemia, unspecified hyperlipidemia type E78.5 Hyperlipidemia type: unspecified Abnormal TSH R79.89 Pulmonary nodule R91.1 S/P thoracotomy Z98.890 Hospital discharge follow-up Z09 Time Spent (min) 35
[2023-03-23 09:29] VITALS: BP 149/65; PULSE 104; BMI 39.1
== END 2023-03-23 10:25 | disposition home or self-care (01) ==
PROVIDERS: PCP Internal Medicine; Visit Provider Nurse Practitioner Family
DX: I31.9 Disease of pericardium, unspecified (principal); Z98.890 Other specified postprocedural states; I25.119 Atherosclerotic heart disease of native coronary artery with unspecified angina pectoris; Z95.5 Presence of coronary angioplasty implant and graft; I34.2 Nonrheumatic mitral (valve) stenosis; I35.0 Nonrheumatic aortic (valve) stenosis; I51.9 Heart disease, unspecified; E78.5 Hyperlipidemia, unspecified; R79.89 Other specified abnormal findings of blood chemistry; R91.1 Solitary pulmonary nodule; Z09 Encounter for follow-up examination after completed treatment for conditions other than malignant neoplasm
CPT/HCPCS: 99214

== ENCOUNTER → 2023-03-23 09:07 | Outpatient (BNVA) | payer OTHER, SELFPAY ==
[2022-10-09 07:53] VITALS: BP 114/58; BP 156/54
== END ==
PROVIDERS: PCP Internal Medicine; Visit Provider Nurse Practitioner Family

== ENCOUNTER 2023-04-20 10:27 | Outpatient (AMB) | payer OTHER, SELFPAY ==
[2022-10-09 07:53] VITALS: BP 114/58; BP 156/54
--- NOTE | 2023-04-20 10:32 | MHC.OFFVIS ---
Intake Intake Visit Reasons: 1m s/p lymph node and lung bx Allergies oxycodone [From PERCOCET] Allergy (Intermediate, Verified 03/23/23 09:32) HIVES Sulfa (Sulfonamide Antibiotics) [SULFA (SULFONAMIDE ANTIBIOTICS)] Allergy (Intermediate, Verified 03/23/23 09:32) HIVES diatrizoate meglumine [Gastrografin] Allergy (Unknown, Verified 03/23/23 09:32) red rash HPI HPI Comments History of Present Illness Details Patient presents with recurrent seroma of the lower back incision. No other issues with the other 2 incisions of the right supraclavicular and upper back area. [facility] Medical History History of mantle field radiation therapy (~1992) Environmental allergies History of shingles CAD (coronary artery disease) Stented coronary artery (~2022) Hyperlipidemia Obesity Mitral stenosis Anxiety and depression Tubular adenoma of colon History of Hodgkin's lymphoma (~1992) Radiation-induced heart disease Aortic stenosis Asthma Hypothyroid Hepatic steatosis GERD (gastroesophageal reflux disease) Herpes Surgical History History of lymph node excision (03/12/23) History of lung biopsy (02/11/23) History of repair of hiatal hernia (~2017) History of thoracentesis (~2018) History of ankle surgery History of section History of colonoscopy History of heart artery stent (~2022) History of arthroscopy of right shoulder History of sleeve gastrectomy (~2017) History of esophagogastroduodenoscopy (EGD) History of cholecystectomy Family History Mother Colon cancer Father Hypertension Prostate cancer Son Diabetes Daughter Autism Social History Household Members: Spouse and Family Housing: House Are you a primary healthcare sales representative to a significant other at home: No Do you presently have visiting nurse or other home services: No Alcohol intake: current Alcohol intake frequency: holidays/special occasions only Patient Tobacco Use Status: Never used Tobacco e-Cigarette/Vaping Use: Never Used Substance Use Type: Marijuana service: No 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: employed 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 Patient has a moderate seroma of the lower back incision. Under sterile technique proximally 35 cc of serous fluid was retrieved. Dressing applied. Well tolerated. Assessment & Plan Assessment & Plan (1) Seroma due to trauma: Code(s): T79.2XXA - Traumatic secondary and recurrent hemorrhage and seroma, initial encounter Plan Once again, patient is given local wound instructions and will follow-up p.r.n.. Ice pack periodically, avoiding strenuous activities, all questions answered. Coding Level of Care Code Global (43811) Diagnoses Seroma due to trauma T79.2XXA
[2023-04-20 10:38] VITALS: BP 158/71; PULSE 100; BMI 38.0
--- NOTE | 2023-04-20 10:38 | MHC.OFFVIS ---
Intake Vital Signs 04/20/23 10:38 Height 5 ft 2 in Weight 208 lb BMI 38.0 BP 158/71 H Blood Pressure Location Rt brachial Position Sitting Pulse 100 Intake Visit Reasons: 1m s/p lymph node and lung bx Intake Note: Patient here s/p 1m 1. Rt groin lymph node 2. Wedge resection Lt upper lobe on 03-12-23. Reports incisions healing well. Patient c/o: pain, tender to touch Fitter Tacker Required: No Accompanied by: Spouse Allergies oxycodone [From PERCOCET] Allergy (Intermediate, Verified 04/20/23 10:39) HIVES Sulfa (Sulfonamide Antibiotics) [SULFA (SULFONAMIDE ANTIBIOTICS)] Allergy (Intermediate, Verified 04/20/23 10:39) HIVES diatrizoate meglumine [Gastrografin] Allergy (Unknown, Verified 04/20/23 10:39) red rash Medication List - Last Reconciled 04/20/23 by Bartolome Washington MD albuterol sulfate 90 mcg/actuation 2 puffs inhalation DAILY PRN aspirin (Ecotrin Low Strength) 81 mg PO DAILY atorvastatin 40 mg PO DAILY cane As directed cholecalciferol (vitamin D3) 50 mcg PO DAILY docusate sodium (Colace) 100 mg PO BID PRN hydrocodone-acetaminophen 5-325 mg 1 tab PO Q4-6H PRN hydromorphone (Dilaudid) 4 mg PO Q4H PRN hydromorphone (Dilaudid) 4 mg PO TID PRN ipratropium-albuterol 0.5 mg-3 mg(2.5 mg base)/3 mL 3 mL inhalation Q6-8H PRN levothyroxine (Levoxyl) 125 mcg PO DAILY lorazepam 0.5 mg PO BID PRN meclizine 12.5 mg PO DAILY PRN mesalamine ER (Apriso) 1.5 grams (4 x 0.375 gram) PO DAILY morphine 15 mg PO BID PRN nortriptyline 10 mg PO BEDTIME pantoprazole 40 mg PO DAILY sertraline 125 mg PO DAILY sertraline 25 mg PO DAILY Symbicort 80-4.5 mcg/actuation (budesonide-formoterol) 2 puffs inhalation Q12H NS ticagrelor (Brilinta) 90 mg PO BID trazodone 100 mg PO BEDTIME PRN ubrogepant (Ubrelvy) 50 mg PO DAILY PRN walker (Ultra-Light Rollator misc) As directed HPI HPI Comments History of Present Illness Details Patient presents for follow up with her significant other. Aside from incisional discomfort which is slowly but steadily improving she otherwise doing well. No respiratory issues or complaints. [facility] Medical History History of mantle field radiation therapy (~1992) Environmental allergies History of shingles CAD (coronary artery disease) Stented coronary artery (~2022) Hyperlipidemia Obesity Mitral stenosis Anxiety and depression Tubular adenoma of colon History of Hodgkin's lymphoma (~1992) Radiation-induced heart disease Aortic stenosis Asthma Hypothyroid Hepatic steatosis GERD (gastroesophageal reflux disease) Herpes Surgical History History of lymph node excision (03/12/23) History of lung biopsy (02/11/23) History of repair of hiatal hernia (~2017) History of thoracentesis (~2018) History of ankle surgery History of section History of colonoscopy History of heart artery stent (~2022) History of arthroscopy of right shoulder History of sleeve gastrectomy (~2017) History of esophagogastroduodenoscopy (EGD) History of cholecystectomy Family History Mother Colon cancer Father Hypertension Prostate cancer Son Diabetes Daughter Autism Social History Household Members: Spouse and Family Housing: House Are you a primary post acute care nurse to a significant other at home: No Do you presently have visiting nurse or other home services: No Alcohol intake: current Alcohol intake frequency: holidays/special occasions only Patient Tobacco Use Status: Never used Tobacco e-Cigarette/Vaping Use: Never Used Substance Use Type: Marijuana service: No 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: employed 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 Assessment & Plan Assessment & Plan (1) S/P thoracotomy: Code(s): Z98.890 - Other specified postprocedural states Plan: See below (2) Hospital discharge follow-up: Code(s): Z09 - Encounter for follow-up examination after completed treatment for conditions other than malignant neoplasm Plan: Patient has been given local instructions, and will follow-up p.r.n. Patient also follow-up with a mobile plant operators. Coding Level of Care Code Global (23213) Diagnoses S/P thoracotomy Z98.890 Hospital discharge follow-up Z09
== END 2023-04-20 11:18 | disposition home or self-care (01) ==
PROVIDERS: PCP Internal Medicine; Visit Provider Surgery
DX: Z98.890 Other specified postprocedural states (principal); Z09 Encounter for follow-up examination after completed treatment for conditions other than malignant neoplasm; T79.2XXA Traumatic secondary and recurrent hemorrhage and seroma, initial encounter; Z48.89 Encounter for other specified surgical aftercare
CPT/HCPCS: 99024

== ENCOUNTER → 2023-04-20 10:27 | Outpatient (BNVA) | payer OTHER, SELFPAY ==
[2022-10-09 07:53] VITALS: BP 114/58; BP 156/54
== END ==
PROVIDERS: PCP Internal Medicine; Visit Provider Surgery

== ENCOUNTER 2023-05-05 15:01 | Outpatient (AMB) | payer SELFPAY ==
[2022-10-09 07:53] VITALS: BP 114/58; BP 156/54
[2023-05-05 15:02] VITALS: BP 130/64; PULSE 118; O2SAT 97; BMI 37.7
--- NOTE | 2023-05-05 15:02 | A.OFFVIS_ITS ---
Intake Vital Signs 3 05/05/23 15:02 Height 5 ft 2 in Weight 206 lb BMI 37.7 BP 130/64 Blood Pressure Location Rt brachial Position Sitting Pulse 118 H Pulse Source Pulse Oximeter Pulse Oximetry (%) 97 Oxygen Delivery Method Room Air Intake Visit Reasons: pulm nodule Land Management Supervisor Required: No Exchange Mechanic: Exchange Mechanic offered & declined Allergies oxycodone [From PERCOCET] Allergy (Intermediate, Verified 05/05/23 15:09) HIVES Sulfa (Sulfonamide Antibiotics) [SULFA (SULFONAMIDE ANTIBIOTICS)] Allergy (Intermediate, Verified 05/05/23 15:09) HIVES diatrizoate meglumine [Gastrografin] Allergy (Unknown, Verified 05/05/23 15:09) red rash Medication List - Last Reconciled 05/05/23 by Jenise Cruz LPN albuterol sulfate 90 mcg/actuation 2 puffs inhalation DAILY PRN aspirin (Ecotrin Low Strength) 81 mg PO DAILY atorvastatin 40 mg PO DAILY cane As directed cholecalciferol (vitamin D3) 50 mcg PO DAILY docusate sodium (Colace) 100 mg PO BID PRN hydrocodone-acetaminophen 5-325 mg 1 tab PO Q4-6H PRN hydromorphone (Dilaudid) 4 mg PO Q4H PRN ipratropium-albuterol 0.5 mg-3 mg(2.5 mg base)/3 mL 3 mL inhalation Q6-8H PRN levothyroxine (Levoxyl) 125 mcg PO DAILY lorazepam 0.5 mg PO BID PRN meclizine 12.5 mg PO DAILY PRN mesalamine ER (Apriso) 1.5 grams (4 x 0.375 gram) PO DAILY morphine 15 mg PO BID PRN nortriptyline 10 mg PO BEDTIME pantoprazole 40 mg PO DAILY sertraline 125 mg PO DAILY sertraline 25 mg PO DAILY Symbicort 80-4.5 mcg/actuation (budesonide-formoterol) 2 puffs inhalation Q12H NS ticagrelor (Brilinta) 90 mg PO BID ubrogepant (Ubrelvy) 50 mg PO DAILY PRN walker (Ultra-Light Rollator misc) As directed HPI pulm nodule 2 HPI0 Details Rose Marie is a very pleasant 57 year old female, never smoker, with underlying history of asthma, moderate aortic and mitral valve stenosis and h/o hodgkin's lymphoma in her 20s s/p mantle radiation. She also reports undergoing two thoracentesis, then pleurodesis, all on the left, in [address] Flowers for recurrent pleural effusions. All testing was reportedly negative for malignancies. Since the last visit, she had a positive PET scan and sent for two nondiagnostic biopsies with IR. Ultimately underwent left mini thoracotomy with wedge resection of PRASHANT and excision of right groin lymph node with Dr. Washington on 03/12/23. Biopsy negative for carcinoma. She has been evaluated posteratively and continues to report postoperative chest discomfort which is slowly improving. Today she continues to report dyspnea on exertion and wheezing with suboptimal response to Symbicort 80 as well as throat irritation and hoarseness. [facility] Medical History History of mantle field radiation therapy (~1992) Environmental allergies History of shingles CAD (coronary artery disease) Stented coronary artery (~2022) Hyperlipidemia Obesity Mitral stenosis Anxiety and depression Tubular adenoma of colon History of Hodgkin's lymphoma (~1992) Radiation-induced heart disease Aortic stenosis Asthma Hypothyroid Hepatic steatosis GERD (gastroesophageal reflux disease) Herpes Surgical History History of lymph node excision (03/12/23) History of lung biopsy (02/11/23) History of repair of hiatal hernia (~2017) History of thoracentesis (~2018) History of ankle surgery History of section History of colonoscopy History of heart artery stent (~2022) History of arthroscopy of right shoulder History of sleeve gastrectomy (~2017) History of esophagogastroduodenoscopy (EGD) History of cholecystectomy Family History Mother Colon cancer Father Hypertension Prostate cancer Son Diabetes Daughter Autism Social History (Updated 05/05/23 @ 15:17 by Jenise Cruz LPN) Household Members: Spouse and Family Housing: House Are you a primary child care centre director to a significant other at home: No Do you presently have visiting nurse or other home services: No Alcohol intake: current Alcohol intake frequency: holidays/special occasions only Patient Tobacco Use Status: Never used Tobacco e-Cigarette/Vaping Use: Never Used Substance Use Type: Marijuana service: No 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: employed 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 Review of Systems Const Denies chills, Denies excessive sweating and Denies headache(s) Eyes Denies dry eyes and Denies irritation ENT Reports Normal hearing present, Denies dysphagia, Reports dry mouth, Denies headache(s), Reports hoarseness, Denies nasal congestion and Denies sore throat Card Reports dyspnea on exertion, Denies orthopnea and Denies paroxysmal nocturnal dyspnea Resp Denies chest congestion, Denies hemoptysis, Denies excessive phlegm production, Denies pain on inspiration, Denies pain with cough, Reports dyspnea on exertion and Denies stridor GI Denies dysphagia Musc Denies myalgias Neuro Reports Normal hearing present and Denies headache(s) Endo Denies excessive sweating Aller/Immun Reports seasonal rhinorrhea Physical Exam Vital Signs: Last Vital Signs Pulse 118 H 05/05/23 15:02 BP 130/64 05/05/23 15:02 Pulse Ox 97 05/05/23 15:02 Oxygen Delivery Method Room Air 05/05/23 15:02 BMI result Body Mass Index 37.7 Const General: cooperative, healthy appearing, comfortable, no acute distress, well developed and alert Nutritional Appearance: obese Orientation/consciousness: patient oriented x3 HEENT Head: Yes normal to inspection, Yes normocephalic and Yes atraumatic Ears: hearing grossly normal bilaterally and external ears normal Eyes General: appearance normal, both eyes and all related structures Eyelids: Yes eyelids normal Sclerae: sclerae normal EOM: EOMs intact bilaterally Neck Neck: Yes normal visual inspection and Yes no lymphadenopathy Lymphatic: no lymphadenopathy noted Chest Chest palpation & inspection: normal inspection of the chest Resp Effort & Inspection: normal respiratory effort, able to speak in complete sentences, no audible wheezes, no cough, no stridor, not tachypneic, no tripod positioning and no use of accessory muscles Auscultation: diminished lung sounds Cardio Jugular venous distension: no JVD Rate: regular rate Rhythm: regular rhythm Skin Other: warm, dry General skin exam: no rashes or lesions noted Neuro General: patient oriented x3 Cranial nerves: Yes Normal hearing present Cognition (Neuro): normal cognition Gait exam (Neuro): Normal gait present Extrem General: Yes normal to inspection, Yes capillary refill normal, Yes no clubbing, cyanosis or edema and Yes no pedal edema Psych Appearance: grossly normal and well kempt Speech and movement: Normal speech and movement present and Clear speech present Affect: normal affect Attitude: cooperative Thought process: Normal thought process present Thought content: Normal thought content present Judgement: Good judgement present (Psych) Results Reviewed Results Reviewed: Assessment & Plan Assessment & Plan (1) Asthma: Code(s): J45.909 - Unspecified asthma, uncomplicated (2) History of mantle field radiation therapy: Onset Date: ~1992 Code(s): Z92.3 - Personal history of irradiation (3) Pleural thickening: Code(s): J92.9 - Pleural plaque without asbestos (4) History of Hodgkin's lymphoma: Onset Date: ~1992 Comment: (treated with radiation in 1992 - in remission) Code(s): Z85.71 - Personal history of Hodgkin lymphoma (5) Abnormal radiologic finding of lung field: Code(s): R91.8 - Other nonspecific abnormal finding of lung field Plan Danigrahame's symptoms are likely multifactorial with pulmonary, cardiac and deconditioning etiologies. Will trial Dulera in place of Symbicort. Reviewed when to use albuterol, as patient hesistant to use. Advised patient to call if using albuterol frequently. All questions were answered and patient is in agreement of plan. Will follow up to review response to Dulera in 6-8 weeks or sooner if needed. Coding Level of Care Code Est Pt Level 4 (28173) Diagnoses Asthma J45.909 History of mantle field radiation therapy Z92.3 Pleural thickening J92.9 History of Hodgkin's lymphoma Z85.71 Abnormal radiologic finding of lung field R91.8
== END 2023-05-05 15:59 | disposition home or self-care (01) ==
PROVIDERS: PCP Internal Medicine; Visit Provider Nurse Practitioner Family
DX: J45.909 Unspecified asthma, uncomplicated (principal); Z92.3 Personal history of irradiation; J92.9 Pleural plaque without asbestos; Z85.71 Personal history of Hodgkin lymphoma; R91.8 Other nonspecific abnormal finding of lung field
CPT/HCPCS: 99214

== ENCOUNTER → 2023-05-05 15:01 | Outpatient (BNVA) | payer OTHER, SELFPAY ==
[2022-10-09 07:53] VITALS: BP 114/58; BP 156/54
== END ==
PROVIDERS: PCP Internal Medicine; Visit Provider Nurse Practitioner Family

== ENCOUNTER 2023-05-12 10:22 | Outpatient (REF) | payer BC, SELFPAY ==
[2022-10-09 07:53] VITALS: BP 114/58; BP 156/54
--- NOTE | ~2023-05-12 | US_ITS ---
EXAMINATION: US ABDOMEN COMPLETE CLINICAL INFORMATION: Abnormal results of liver function studies. Rule out liver mass, lesion. History of cholecystectomy. COMPARISON: PET/CT 01/13/2023 TECHNIQUE: Real-time imaging of the abdominal viscera. FINDINGS: PANCREAS: Normal. ABDOMINAL AORTA: Calcific atherosclerotic changes are present in the abdominal aorta without aneurysm. INFERIOR VENA CAVA: Visualized portions are normal. LIVER: The liver is normal in size. The liver contour is normal. There is diffuse increased liver parenchymal echogenicity, consistent with hepatic steatosis. No focal hepatic lesion. There is no intrahepatic biliary duct dilatation seen. GALLBLADDER: Surgically absent. COMMON BILE DUCT: Normal in caliber measuring 0.4 cm in diameter. RIGHT KIDNEY: No hydronephrosis. No renal calculi or focal parenchymal lesions. The kidney measures 9.5 cm in maximum dimension. LEFT KIDNEY: Normal. No hydronephrosis. No renal calculi or focal parenchymal lesions. The kidney measures 9.0 cm in maximum dimension. SPLEEN: Normal. The spleen measures 8.0 cm in maximum dimension. FREE FLUID: None. US/US abdomen complete IMPRESSION: Hepatic steatosis.
--- NOTE | 2023-05-12 10:55 | CA_ITS ---
Transthoracic Echocardiogram Patient (Last, First, Middle): Rose Marie Ross M Gender: Female Date of : 1965 Age: 57 Procedure Date: 05/12/2023 Procedure Type: Transthoracic Echocardiogram Location: OP Height: 157.48 cm Weight: 92.99 kg BSA: 1.93 m2 Heart Rate: bpm BP: 135 / 70 mmHg Down Filler: FARA Referring MD: Helen Olivas VOICE PATHOLOGISTKatherineC Symptoms: I35.0 - Nonrheumatic aortic (valve) stenosis Study Quality: Technically Difficult ECG Rhythm: Sinus Conclusions: - The left ventricular systolic function is normal. The visually estimated ejection fraction is between 65-70%. - There is moderate calcification of the aortic valve. There is mild to moderate aortic valve stenosis. There is mild aortic valve regurgitation. - There is severe mitral annular calcification. There is moderate mitral valve stenosis. Findings Left Ventricle Normal left ventricular cavity size. The left ventricular systolic function is normal. The visually estimated ejection fraction is between 65-70%. There is no evidence of regional wall motion abnormalities. Evidence suggests grade I (mild) diastolic dysfunction. There is mild septal asymmetric hypertrophy. Right Ventricle Normal right ventricular cavity size and systolic function. Atria Both atria are normal in size. Aortic Valve There is moderate calcification of the aortic valve. There is mild to moderate aortic valve stenosis. The mean gradient is 19 mmHg. The aortic valve area is 1.18 cm2. There is mild aortic valve regurgitation. Mitral Valve There is severe mitral annular calcification. There is trace mitral valve regurgitation. There is moderate mitral valve stenosis. Pulmonic Valve The pulmonic valve is likely normal. Tricuspid Valve There is no tricuspid valve regurgitation. Tricuspid regurgitation envelope is inadequate for calculation of right ventricular systolic pressure. Great Vessels The asc aorta is normal in size. Venous The inferior vena cava is normal in size and collapses greater than 50% with inspiration. Pericardium/Pleural There is no evidence of pericardial effusion. Prior Study Comparison No significant change compared to prior study dated: 12/03/2022. Measurements 2D Linear Measurements IVSd: 1.12 0.6-0.9/0.6-1.0 cm LVIDd: 3.43 3.9-5.3/4.2-5.9 cm LVIDd Index: 1.78 2.4-3.2/2.2-3.1 cm/m2 LVIDs: 2.45 2.0-3.6 cm LVPWd: 1.00 0.7-1.1 cm LA Diam: 3.00 2.7-3.8/3.0-4.0 cm LAIDs Index: 1.55 1.5-2.3 cm/m2 LV Mass: 135.82 67-162/88-224 g LV Mass Index: 70.38 43-95/49-115 g/m2 LVOT Diam: 2.00 3.0+(-)1.3 cm Mitral Valve MV VTI: 0.48 MV Pk Godwin: 1.47 MV Mn Godwin: 0.95 MV Pk Grad: 9.00 MV Mn Grad: 4.00 MV Pk E: 1.31 MV PK A: 1.33 MV Decel Time: 276.00 E/A: 1.00 E'Lateral: 8.51 E'Medial: 4.54 E/E' Med: 28.90 E/E' Lat: 15.40 PHT: 81.00 MVA PHT: 2.72 MVA Continuity: 1.68 Decel [place]: 4.73 Aortic Valve AoV Pk Godwin: 2.81 AoV Mn Godwin: 2.08 AoV VTI: 0.68 AoV Pk Grad: 32.00 Aov Mn Grad: 19.00 MAURO Cont.VTI: 1.18 AI Pk Godwin: 3.78 AI [place]: 3.02 LVOT LVOT Pk Godwin: 1.02 LVOT Mn Godwin: 0.76 LVOT VTI: 0.26 LVOT Pk Grad: 4.00 LVOT Mn Grad: 3.00 LVOT Diam: 2.00 LVOT Area: 3.14 Diastolic Function MV Pk E: 1.31 MV Pk A: 1.33 E/A: 1.00 E'Medial: 4.54 E/E' Med: 28.90 E' Laterial: 8.51 E/E' Lat: 15.40 Right Ventricle TAPSE (mm): 23.00 TVS' Godwin: 11.30 Tricuspid Valve RA Press: 3.00 Great Vessels Aorta Ao Asc: 2.60 2.1-3.4 cm Updated in Other Vendor System with Status of Final Darrell Mcginnis MD electronically signed on 05/12/2023 12:41:53 PM with status of Final
== END 2023-05-12 10:23 | disposition home or self-care (01) ==
LOC: HO.US 10:22
PROVIDERS: Absent Provider Nurse Practitioner Family; PCP Internal Medicine; Visit Provider Internal Medicine Gastroenterology
DX: R94.5 Abnormal results of liver function studies (principal); I35.0 Nonrheumatic aortic (valve) stenosis; I05.0 Rheumatic mitral stenosis; I25.10 Atherosclerotic heart disease of native coronary artery without angina pectoris
CPT/HCPCS: 76700; 93306

== ENCOUNTER → 2023-05-12 10:55 | Outpatient (BNV) | payer BC, SELFPAY ==
[2022-10-09 07:53] VITALS: BP 114/58; BP 156/54
== END ==
PROVIDERS: Absent Provider Nurse Practitioner Family; PCP Internal Medicine; Visit Provider Internal Medicine
DX: I35.2 Nonrheumatic aortic (valve) stenosis with insufficiency (principal)
CPT/HCPCS: 93306

== ENCOUNTER 2023-06-29 10:43 | Outpatient (AMB) | payer BC, SELFPAY ==
[2022-10-09 07:53] VITALS: BP 114/58; BP 156/54
--- NOTE | 2023-06-29 10:46 | A.OFFVIS_ITS ---
Vital Signs 06/29/23 10:47 Height 5 ft 2 in Weight 200 lb BMI 36.6 BP 130/59 L Blood Pressure Location Lt brachial Position Sitting Pulse 86 Intake Visit Reasons: 4 Month follow up Intake Note: Rose Marie presents in the office as a 4 month follow up. CC: Biospies done on her right groin and left lung. [employer]able [employer] Technician Required: No Allergies oxycodone [From PERCOCET] Allergy (Intermediate, Verified 06/29/23 10:48) HIVES Sulfa (Sulfonamide Antibiotics) [SULFA (SULFONAMIDE ANTIBIOTICS)] Allergy (Intermediate, Verified 06/29/23 10:48) HIVES diatrizoate meglumine [Gastrografin] Allergy (Unknown, Verified 06/29/23 10:48) red rash HPI HPI 4 Month follow up: Details: 57 yr old f here for f/u RECAP ?She had seen Oralia and Dr Mahan before seeing me ISSUES: 1/ constipation 2/ GERD-on pantoprazole 3/ abn LFT - US 08/2018-- normal liver echogenicity, and elastography-alk phos isoenzyme pos for macro form of alk phos, GGT mildly elevated 4/ FH of CRC, also personal and family hx of polyps.? She had MRe with transmural enhancement of loop of small bowel, fecal lactoferrin was neg Colonoscopy 07/30/21: polyps internal hemorrhoids mild ileitis BX with tubular adenoma, other bx were neg EGD: 01/2022 Findings: Larynx:normal Esophagus: GE junction at 38? cm, diaphragm hiatus at 38 cm, partial schatzki ring, bx taken from GEJ and random esophagus Stomach: Patchy gastric erythema, altered anatomy with L shaped stomach with hx of sleeve gastrectomy. Biopsies were obtained. Grade 2 flap valve on retroflexed examination of the cardia. Duodenum: Normal bulb and descending duodenum, bx taken Intervention: Biopsies as noted above Impression/Findings: partial schatzki gastritis MRe: 06/2022: no active inflammation She did see Cardiology, and had stent placed after diagnostic cath, ECHO with she had bx of lung and LN due to sx and path is non diagnostic PET scan 01/23/23 physiological uptake in Gi tract, uptake in lungs--left pleura INTERIM: She had her lung surgery 04/01 and recovering well she is still taking apriso and continues to help her Gi sx ever since she was intubated she has noted pills getting stuck in her upper throat, she chews food thoroughly and has not noted any issues unless eats chunky foods LFT at [facility] apart from mild raised alk phos US with steatosis EXAM: GENERAL: The patient is well developed and nontoxic. VITAL SIGNS:see workflow HEENT: Nonicteric sclerae, PERRLA, EOMI. Oropharynx clear. Moist mucous membranes. Conjunctivae appear well perfused. No thyroid mass. CHEST: Chest wall is nontender. HEART: Regular rate and rhythm without murmurs. LUNGS: Clear to auscultation bilaterally. ABDOMEN: Soft, positive bowel sounds, nontender, no organomegaly.no flank tenderness SKIN: No rash, no excessive bruising, petechiae, or purpura. NEUROLOGIC: Cranial nerves II-XII intact without motor/sensory deficit. A/P: 1/ Abn LFt, raised lak phos with ps macro form, steatosis as well 2/ GERD--controlled 3/ abn bowel habit, long standing, Imaging and colonoscopy with enteritis, ileitis--on pentasa with good results 4/ hx of polyps 5/ abn shaped stomach from sleeve gastrectomy--possible dysphagia from GERD PLAN: 1/ cont with apriso 2/ trial of urosdiol see if helps alk phos reduction even though has macro form 3/ offered EGD with dilation but wants to hold, will try PPI BID dosing meantime and also jovita in case of bile acid reflux [facility] Medical History History of mantle field radiation therapy (~1992) Environmental allergies History of shingles CAD (coronary artery disease) Stented coronary artery (~2022) Hyperlipidemia Obesity Mitral stenosis Anxiety and depression Tubular adenoma of colon History of Hodgkin's lymphoma (~1992) Radiation-induced heart disease Aortic stenosis Asthma Hypothyroid Hepatic steatosis GERD (gastroesophageal reflux disease) Herpes Surgical History History of lymph node excision (03/12/23) History of lung biopsy (02/11/23) History of repair of hiatal hernia (~2017) History of thoracentesis (~2018) History of ankle surgery History of section History of colonoscopy History of heart artery stent (~2022) History of arthroscopy of right shoulder History of sleeve gastrectomy (~2018) History of esophagogastroduodenoscopy (EGD) History of cholecystectomy Family History Mother Colon cancer Father Hypertension Prostate cancer Son Diabetes Daughter Autism Social History Household Members: Spouse and Family Housing: House Are you a primary director of career services to a significant other at home: No Do you presently have visiting nurse or other home services: No Alcohol intake: current Alcohol intake frequency: holidays/special occasions only Patient Tobacco Use Status: Never used Tobacco e-Cigarette/Vaping Use: Never Used Substance Use Type: Marijuana service: No 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: employed 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 Vital Signs: Last Vital Signs Pulse 86 06/29/23 10:47 BP 130/59 L 06/29/23 10:47 BMI result Body Mass Index 36.6 Assessment & Plan Assessment & Plan (1) Abnormal LFTs: Code(s): R94.5 - Abnormal results of liver function studies Category: Medical Plan: PLAN: 1/ cont with apriso 2/ trial of urosdiol see if helps alk phos reduction even though has macro form 3/ offered EGD with dilation but wants to hold, will try PPI BID dosing meantime and also jovita in case of bile acid reflux (2) Dysphagia: Code(s): R13.10 - Dysphagia, unspecified Category: Medical Plan: PLAN: 1/ cont with apriso 2/ trial of urosdiol see if helps alk phos reduction even though has macro form 3/ offered EGD with dilation but wants to hold, will try PPI BID dosing meantime and also jovita in case of bile acid reflux Medications: New pantoprazole 40 mg PO DAILY 60 tabs 1RF ursodiol 500 mg PO BID 90 tabs 2RF
[2023-06-29 10:47] VITALS: BP 130/59; PULSE 86; BMI 36.6
== END 2023-06-29 11:08 | disposition home or self-care (01) ==
LOC: HO.HGI 10:43
PROVIDERS: PCP Internal Medicine; Visit Provider Internal Medicine Gastroenterology
DX: R94.5 Abnormal results of liver function studies (principal); R13.10 Dysphagia, unspecified
CPT/HCPCS: 99213

== ENCOUNTER → 2023-06-29 10:43 | Outpatient (BNVA) | payer BC, SELFPAY ==
[2022-10-09 07:53] VITALS: BP 114/58; BP 156/54
== END ==
PROVIDERS: PCP Internal Medicine; Visit Provider Internal Medicine Gastroenterology

== ENCOUNTER 2023-07-03 13:17 | Outpatient (REF) | payer BC, SELFPAY ==
[2022-10-09 07:53] VITALS: BP 114/58; BP 156/54
--- NOTE | ~2023-07-03 | CT_ITS ---
EXAMINATION: CT CHEST WITHOUT CONTRAST CLINICAL INFORMATION: Solitary pulmonary nodule. COMPARISON: Chest radiograph 03/16/2023, PET/CT 01/13/2023, CT angiogram chest 11/07/2022. TECHNIQUE: Multidetector volumetric CT imaging of the chest was done. Axial MIP volume rendering provided. Sagittal and coronal reformatted images were obtained. This CT examination was performed using dose optimization techniques as appropriate, variously including the following: *Automated exposure control *Adjustment of mA and/or kV according to patient size (this includes techniques or standardized protocols for targeted exams where dose is matched to indication/reason for exam; i.e. extremities or head) *Use of iterative reconstruction technique DLP: 131 mGy-cm FINDINGS: LUNGS: There is a thick-walled loculated presumed pneumothorax present measuring 3.6 x 3.1 x 2.3 cm. Chest tubes had been present in this region in March but have subsequently been removed. Again seen is abnormal density abutting the superior mediastinum along the left mediastinal surface extending from the apex down to the level of the jackie. The thickness of the soft tissue abutting the mediastinum appears slightly increased compared to the 11/07/2022 study measuring 0.8 cm at that time and 1.0 cm now (5:106 compare prior 13:14). At the time of the prior study an apical mass was seen which had calcifications in it and was probably related to the pleura. This appears decreased in size compared to the 11/07/2022 study when this measured a maximum of 2.6 cm in thickness compared with 1.3 cm now (5:91 compare prior 13:9). There is nodular thickening along the major fissure laterally which appears similar to the prior. There is band-like chronic atelectasis in the left upper lobe new when compared to the prior study associated with pleural thickening. The right lung is clear without masses, infiltrates or effusion. MEDIASTINUM: Heart size normal. No mediastinal or hilar lymphadenopathy. CORONARY ARTERY CALCIFICATION: Mild. PLEURA: There is no pleural effusion. . AXILLA: No lymphadenopathy. UPPER ABDOMEN: Status post cholecystectomy. No adrenal mass is seen. There has been a prior gastric sleeve. OSSEOUS STRUCTURES: There is a fracture of the posterior left sixth rib which is displaced with no evidence of healing. There are fractures involving the seventh and eighth ribs below this level with periosteal reaction and some evidence of healing. CT/CT chest wo IV con IMPRESSION: 1. There is a thick-walled loculated pneumothorax present in the left upper lobe. The thickness of the soft tissue abutting the mediastinum appears slightly increased compared to the 11/07/2022 study. 2. The apical mass appears decreased in size compared to the 11/07/2022 study. 3. There is new band-like atelectasis in the left upper lobe associated with pleural thickening. 4. There are fractures of the left sixth, seventh and eighth ribs with some evidence of healing. Fleischner guidelines were followed.
== END 2023-07-03 13:18 | disposition home or self-care (01) ==
LOC: HO.CT 13:17
PROVIDERS: PCP Internal Medicine; Visit Provider Nurse Practitioner Family
DX: R91.1 Solitary pulmonary nodule (principal); R91.8 Other nonspecific abnormal finding of lung field; Z98.890 Other specified postprocedural states
CPT/HCPCS: 71250

== ENCOUNTER 2023-07-07 14:08 | Outpatient (AMB) | payer BC, SELFPAY ==
[2022-10-09 07:53] VITALS: BP 114/58; BP 156/54
--- NOTE | 2023-07-07 14:09 | A.OFFVIS_ITS ---
Vital Signs 07/07/23 14:11 Height 5 ft 2 in Weight 205 lb 6 oz BMI 37.6 BP 120/52 L Blood Pressure Location Rt brachial Position Sitting Pulse 75 Pulse Source Pulse Oximeter Pulse Oximetry (%) 97 Oxygen Delivery Method Room Air Intake Visit Reasons: pulm nodule Allergies oxycodone [From PERCOCET] Allergy (Intermediate, Verified 07/07/23 14:13) HIVES Sulfa (Sulfonamide Antibiotics) [SULFA (SULFONAMIDE ANTIBIOTICS)] Allergy (Intermediate, Verified 07/07/23 14:13) HIVES diatrizoate meglumine [Gastrografin] Allergy (Unknown, Verified 07/07/23 14:13) red rash HPI HPI pulm nodule : Details: Rose Marie is a very pleasant 57 year old female, never smoker, with underlying history of asthma, moderate aortic and mitral valve stenosis and h/o hodgkin's lymphoma in her 20s s/p mantle radiation, s/p left thoracentesis and pleurodesis, in [address] Flowers for recurrent pleural effusions, negative for malignancies. On 03/12/23 she underwent left mini thoracotomy with wedge resection of PRASHANT and excision of right groin lymph node with Dr. Washington for PET avid findings. Biopsy negative for carcinoma. Today she presents to review follow up chest CT as well as response to Asmanex and duoneb for continued dyspnea on exertion. Of note, she continues to report moderate burning pain in the location of aforementioned procedure. She states pain is interfering with sleep and PCP started on gabapentin today. Will start at 100 mg QHS, if tolerates increase to 300 mgQHS. [facility] Medical History History of mantle field radiation therapy (~1992) Environmental allergies History of shingles CAD (coronary artery disease) Stented coronary artery (~2022) Hyperlipidemia Obesity Mitral stenosis Anxiety and depression Tubular adenoma of colon History of Hodgkin's lymphoma (~1992) Radiation-induced heart disease Aortic stenosis Asthma Hypothyroid Hepatic steatosis GERD (gastroesophageal reflux disease) Herpes Surgical History History of lymph node excision (03/12/23) History of lung biopsy (02/11/23) History of repair of hiatal hernia (~2018) History of thoracentesis (~2019) History of ankle surgery History of section History of colonoscopy History of heart artery stent (~2022) History of arthroscopy of right shoulder History of sleeve gastrectomy (~2017) History of esophagogastroduodenoscopy (EGD) History of cholecystectomy Family History Mother Colon cancer Father Hypertension Prostate cancer Son Diabetes Daughter Autism Social History Household Members: Spouse and Family Housing: House Are you a primary health care aide to a significant other at home: No Do you presently have visiting nurse or other home services: No Alcohol intake: current Alcohol intake frequency: holidays/special occasions only Patient Tobacco Use Status: Never used Tobacco e-Cigarette/Vaping Use: Never Used Substance Use Type: Marijuana service: No 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: employed 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 Review of Systems Const Denies chills, Denies excessive sweating, Denies fever(s), Denies headache(s) and Denies night sweats Eyes Denies dry eyes, Denies irritation and Denies itchy eyes ENT Reports Normal hearing present, Denies headache(s), Denies nasal congestion, Denies nasal discharge, Denies post nasal drip and Denies sore throat Card Denies claudication, Denies leg edema, Denies orthopnea and Denies paroxysmal nocturnal dyspnea Resp Denies chest congestion, Denies excessive phlegm production, Denies pain on inspiration, Denies pain with cough, Denies stridor and Denies wheezing Musc Denies myalgias Neuro Reports Normal hearing present and Denies headache(s) Endo Denies excessive sweating Terrance/Lymph Denies lymphadenopathy Aller/Immun Denies itchy eyes, Denies seasonal rhinorrhea and Denies wheezing Physical Exam Vital Signs: Last Vital Signs Pulse 75 07/07/23 14:11 BP 120/52 L 07/07/23 14:11 Pulse Ox 97 07/07/23 14:11 Oxygen Delivery Method Room Air 07/07/23 14:11 BMI result Body Mass Index 37.6 Const General: cooperative, healthy appearing, comfortable, no acute distress, well developed and alert Nutritional Appearance: obese Orientation/consciousness: patient oriented x3 Limitations: no limitations HEENT Head: Yes normal to inspection, Yes normocephalic and Yes atraumatic Ears: hearing grossly normal bilaterally and external ears normal Eyes General: appearance normal, both eyes and all related structures Eyelids: Yes eyelids normal Sclerae: sclerae normal EOM: EOMs intact bilaterally Neck Neck: Yes normal visual inspection and Yes no lymphadenopathy Lymphatic: no lymphadenopathy noted Chest Chest palpation & inspection: normal inspection of the chest Resp Effort & Inspection: normal respiratory effort, able to speak in complete sentences, no audible wheezes, no cough, no stridor, not tachypneic, no tripod positioning and no use of accessory muscles Auscultation: clear to auscultation bilaterally Cardio Jugular venous distension: no JVD Rate: regular rate Rhythm: regular rhythm Skin Other: warm, dry General skin exam: no rashes or lesions noted Neuro General: patient oriented x3 Cranial nerves: Yes Normal hearing present Cognition (Neuro): normal cognition Gait exam (Neuro): Normal gait present Extrem General: Yes normal to inspection, Yes capillary refill normal, Yes no clubbing, cyanosis or edema and Yes no pedal edema Psych Appearance: grossly normal and well kempt Speech and movement: Normal speech and movement present and Clear speech present Affect: normal affect Attitude: cooperative Thought process: Normal thought process present Thought content: Normal thought content present Insight: Good insight present (Psych) Judgement: Good judgement present (Psych) Assessment & Plan Assessment & Plan (1) Asthma: Code(s): J45.909 - Unspecified asthma, uncomplicated Category: Medical (2) History of mantle field radiation therapy: Onset Date: ~1992 Code(s): Z92.3 - Personal history of irradiation Category: Medical (3) Pleural thickening: Code(s): J92.9 - Pleural plaque without asbestos Category: Medical (4) History of Hodgkin's lymphoma: Onset Date: ~1992 Comment: (treated with radiation in 1992 - in remission) Code(s): Z85.71 - Personal history of Hodgkin lymphoma Category: Medical (5) Abnormal radiologic finding of lung field: Code(s): R91.8 - Other nonspecific abnormal finding of lung field Category: Medical (6) Intercostal neuralgia: Code(s): G58.8 - Other specified mononeuropathies Category: Medical Plan Rose Marie continues to report dyspnea on exertion despite trialing Breo, symbicort and asmanex. Will trial Trelegy. If unable to obtain, will send in combivent or spiriva. Chest CT not officially read by radiology. Will review report when available and review at upcoming multidisciplinary conference on Thursday. Will likely obtain follow up chest CT in 6 months. She also reports persistent burning pain present since surgery in March. Will refer to pain management for evaluation with possibility of intercostal nerve block, if no response to gabapentin. All questions were answered and patient is in agreement of plan. Will follow up to review response to Trelegy in 12-18 or sooner if needed. Orders: Orders CT chest wo IV con 6 Months J92.9 - Pleural plaque without asbestos, R91.1 - Solitary pulmonary nodule, R91.8 - Other nonspecific abnormal finding of lung field Referrals Pain Management Referral G58.8 - Other specified mononeuropathies Medications: New [id number] 100-62.5-25 mcg (Trelegy Ellipta) 1 inh inhalation DAILY 60 ea 6RF Coding Level of Care Code Est Pt Level 4 (37146) Diagnoses Asthma J45.909 History of mantle field radiation therapy Z92.3 Pleural thickening J92.9 History of Hodgkin's lymphoma Z85.71 Abnormal radiologic finding of lung field R91.8 Intercostal neuralgia G58.8
[2023-07-07 14:11] VITALS: BP 120/52; PULSE 75; O2SAT 97; BMI 37.6
== END 2023-07-07 14:48 | disposition home or self-care (01) ==
PROVIDERS: PCP Internal Medicine; Visit Provider Nurse Practitioner Family
DX: J45.909 Unspecified asthma, uncomplicated (principal); Z92.3 Personal history of irradiation; J92.9 Pleural plaque without asbestos; Z85.71 Personal history of Hodgkin lymphoma; R91.8 Other nonspecific abnormal finding of lung field; G58.8 Other specified mononeuropathies
CPT/HCPCS: 99214

== ENCOUNTER → 2023-07-07 14:08 | Outpatient (BNVA) | payer BC, SELFPAY ==
[2022-10-09 07:53] VITALS: BP 114/58; BP 156/54
== END ==
PROVIDERS: PCP Internal Medicine; Visit Provider Nurse Practitioner Family

== ENCOUNTER 2023-08-10 08:50 | Outpatient (AMB) | payer BC, SELFPAY ==
[2022-10-09 07:53] VITALS: BP 114/58; BP 156/54
[2023-07-28 10:56] VITALS: BP 100/50; BP 114/58; BP 156/54; BMI 40.1
--- NOTE | 2023-08-10 09:18 | A.OFFVIS_ITS ---
Vital Signs 08/10/23 09:19 Height 5 ft 2 in Weight 198 lb 13.711 oz BMI 36.4 BP 108/62 Blood Pressure Location Lt brachial Position Sitting Pulse 84 Pulse Source Pulse Oximeter Intake Visit Reasons: 6 month follow up Cloth Carrier Required: No Alarm Signaler: Alarm Signaler Present Allergies oxycodone [From PERCOCET] Allergy (Intermediate, Verified 08/10/23 09:21) HIVES Sulfa (Sulfonamide Antibiotics) [SULFA (SULFONAMIDE ANTIBIOTICS)] Allergy (Intermediate, Verified 08/10/23 09:21) HIVES diatrizoate meglumine [Gastrografin] Allergy (Unknown, Verified 08/10/23 09:21) red rash Medication List - Last Reconciled 08/10/23 by NAV Romero albuterol sulfate 90 mcg/actuation 2 puffs inhalation DAILY PRN aspirin (Ecotrin Low Strength) 81 mg PO DAILY atorvastatin 40 mg PO DAILY cane As directed cholecalciferol (vitamin D3) 50 mcg PO DAILY uryqxqwdjsv-aapqbwuan-xitnusmp 100-62.5-25 mcg (Trelegy Ellipta) 1 inh inhalation DAILY 90 days gabapentin 100 mg PO BEDTIME ipratropium-albuterol 0.5 mg-3 mg(2.5 mg base)/3 mL 3 mL inhalation Q6-8H PRN levothyroxine (Levoxyl) 125 mcg PO DAILY lorazepam 0.5 mg PO BID PRN meclizine 12.5 mg PO DAILY PRN mesalamine ER (Apriso) 1.5 grams (4 x 0.375 gram) PO DAILY morphine 15 mg PO BID PRN nortriptyline 10 mg PO BEDTIME pantoprazole 40 mg PO DAILY sertraline 125 mg PO DAILY sertraline 25 mg PO DAILY ticagrelor (Brilinta) 90 mg PO BID ubrogepant (Ubrelvy) 50 mg PO DAILY PRN ursodiol 500 mg PO BID walker (Ultra-Light Rollator misc) As directed HPI HPI 6 month follow up : Details: Rose Marie is a 57-year-old female with past medical history of Hodgkin's lymphoma and mantle radiation, mild to moderate aortic stenosis, moderate mitral valve stenosis. On 08/21/2022 underwent cardiac catheterization showing significant proximal RCA stenosis and a KAMRYN was placed. In 11/2022 she developed chest discomfort and was treated for pericarditis which was treated with colchicine and then prednisone. She then had abnormal findings on a chest x-ray leading to eventual lung biopsy. She underwent thoracotomy with wedge resection, biopsy on 03/12/2023. She did have issues with anemia during that admission requiring 2 units of packed cells. Today she reports that she is still feeling discomfort along her left lateral surgical site. She will be going to the Pain clinic in the near future to help her with this persistent pain. She has some random left upper chest ache but no chest discomfort with walking or stair climbing. Her prior pericarditis discomfort has resolved. She has been slowly painting an outside patio with reports of fatigue and sob. She denies sob at rest, PND, orthopnea or edema. No presyncope, syncope, falls. Taking all meds as directed. is present. [facility] Medical History History of mantle field radiation therapy (~1992) Environmental allergies History of shingles CAD (coronary artery disease) Stented coronary artery (~2022) Hyperlipidemia Obesity Mitral stenosis Anxiety and depression Tubular adenoma of colon History of Hodgkin's lymphoma (~1992) Radiation-induced heart disease Aortic stenosis Asthma Hypothyroid Hepatic steatosis GERD (gastroesophageal reflux disease) Herpes Surgical History History of lymph node excision (03/12/23) History of lung biopsy (02/11/23) History of repair of hiatal hernia (~2017) History of thoracentesis (~2018) History of ankle surgery History of section History of colonoscopy History of heart artery stent (~2022) History of arthroscopy of right shoulder History of sleeve gastrectomy (~2017) History of esophagogastroduodenoscopy (EGD) History of cholecystectomy Family History Mother Colon cancer Father Hypertension Prostate cancer Son Diabetes Daughter Autism Social History Household Members: Spouse and Family Housing: House Are you a primary acute care clinical nurse specialist to a significant other at home: No Do you presently have visiting nurse or other home services: No Alcohol intake: current Alcohol intake frequency: holidays/special occasions only Patient Tobacco Use Status: Never used Tobacco e-Cigarette/Vaping Use: Never Used Substance Use Type: Marijuana service: No 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: employed 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 Review of Systems Const All systems reviewed & are unremarkable except as noted in HPI and below ENT Denies dizziness Card Denies chest pain, Denies chest pain at rest, Denies chest pain with activity, Denies rapid heart rate, Denies pedal edema, Denies edema, Denies leg edema, Denies lightheadedness, Denies palpitations, Reports dyspnea, Reports dyspnea on exertion and Denies orthopnea Resp Denies cough, Reports dyspnea and Reports dyspnea on exertion GI Denies hematochezia and Denies change in stool character Musc Details: Left lateral chest wall discomfort Denies abnormal gait, Denies limited range of motion, Denies muscle cramps, Denies muscle weakness, Denies numbness, Denies radiating pain into limb, Denies stiffness and Denies tingling Neuro Denies abnormal gait, Denies dizziness, Denies numbness and Denies tingling Endo Denies palpitations Physical Exam Vital Signs: Last Vital Signs Pulse 84 08/10/23 09:19 BP 108/62 08/10/23 09:19 BMI result Body Mass Index 36.4 Const General: cooperative, healthy appearing, comfortable and no acute distress Orientation/consciousness: patient oriented x3 Neck Neck: Yes normal visual inspection and Yes no JVD Chest Chest palpation & inspection: normal inspection of the chest Resp Effort & Inspection: normal respiratory effort Auscultation: clear to auscultation bilaterally, no crackles, no rales, no rhonchi and no wheezes Cardio Jugular venous distension: no JVD Rate: regular rate Rhythm: regular rhythm Heart sounds: S1 normal heart sound present, S2 normal heart sound present, no murmurs and no rubs Neuro General: patient oriented x3 Extrem General: Yes normal to inspection, No no pedal edema and No calf tenderness Psych Appearance: grossly normal Mental Status: mental status grossly normal Speech and movement: Normal speech and movement present Assessment & Plan Assessment & Plan (1) Pericarditis: Code(s): I31.9 - Disease of pericardium, unspecified Category: Medical Plan: Last fall she was treated for pericarditis which was initially treated with colchicine. An echocardiogram was done on 12/03/2022 showing EF 60-65%, no regional wall motion abnormalities, normal RV and no gross pericardial effusion. Her symptoms persistent even with cholchicin use. Ibuprofen was avoided per the recommendation of her GI provider due to risk of exacerbating her ileitis. She did require use of prednisone which required slow gradual wean. Her symptom took many weeks to resolve. At this point she no longer has symptoms of pericarditis. Her med list no longer includes colchicine. (2) S/P cardiac catheterization: Onset Date: ~2022 Comment: 08/21/2022. Left main 20% stenosis, proximal RCA 80% stenosis angioplasty and KAMRYN placed, no significant gradient on pullback across aortic valve, wedge 10, PA 03/12, no obvious mitral stenosis Code(s): Z98.890 - Other specified postprocedural states Category: Surgical Plan: Cardiac catheterization done on 08/21/2022 proximal RCA 80% stenosis. Angioplasty and KAMRYN placed. PA pressure is normal. She was placed on aspirin indefinitely, Brilinta 90 mg b.i.d. uninterrupted for at least 1 year. Atorvastatin 40 mg daily. Had been in cardiac rehab. She stopped with the pericarditis and now she is having pulmonary issues and is yet to restart. Today she tells me that she will be going to the Pain clinic for her left lateral surgical area discomfort. Once that is taken care of she will start in Pulmonary rehab. No reports of anginal sounding chest discomfort. Continue current med management. On 08/23/23 she can stop Brilinta. (3) CAD (coronary artery disease): Comment: (radiation induced heart disease - s/p stent to RCA 08/15/22) Code(s): I25.10 - Atherosclerotic heart disease of [place] coronary artery without angina pectoris Category: Medical Qualifiers: Associated angina: with unspecified form of angina Coronary Disease-Associated Artery/Lesion type: holy cross artery [place] vs. transplanted heart: holy cross heart Qualified Code(s): I25.119 - Atherosclerotic heart disease of [place] coronary artery with unspecified angina pectoris Plan: As above (4) History of heart artery stent: Onset Date: ~2022 Comment: (Stent to RCA [80% occluded] - [place] [facility] [place] Code(s): Z95.5 - Presence of coronary angioplasty implant and graft Category: Surgical Plan: As above (5) Mitral stenosis: Comment: (05/19/22 Echo = [id number]-bp-cumfvjju mitral valve stenosis, calcific mitral annular changes -non rheumatic) Code(s): I05.0 - Rheumatic mitral stenosis Category: Medical Qualifiers: Cardiac valve disease etiology: nonrheumatic Qualified Code(s): I34.2 - Nonrheumatic mitral (valve) stenosis Plan: Echocardiogram 05/19/2022 showing mild to moderate mitral valve stenosis. Cardiac catheterization performed showing no obvious mitral stenosis. Echocard iogram 05/12/23 showed Moderate mitral stenosis. Plan for repeat echo prior to next visit (6) Aortic stenosis: Comment: (05/19/22 Echo = [id number] aortic & mitral valve stenosis) Code(s): I35.0 - Nonrheumatic aortic (valve) stenosis Category: Medical Qualifiers: Cardiac valve disease etiology: nonrheumatic Qualified Code(s): I35.0 - Nonrheumatic aortic (valve) stenosis Plan: Echocardiogram last year showing mild to moderate aortic stenosis. Cardiac catheterization performed showing no significant gradient across the aortic valve. Echocardiogram recently done shows mild to moderate aortic stenosis. (7) Radiation-induced heart disease: Comment: (s/p chest radiation for Hodgkins in 1992; s/p stent to RCA - 08/15/22) Code(s): I51.9 - Heart disease, unspecified Category: Medical Plan: History of chest radiation 1992 for Hodgkin's lymphoma (8) Hyperlipidemia: Code(s): E78.5 - Hyperlipidemia, unspecified Category: Medical Qualifiers: Hyperlipidemia type: unspecified Qualified Code(s): E78.5 - Hyperlipidemia, unspecified Plan: [place] LDL goal less than 70 in patient with CAD. Recently started on atorvastatin 40 mg daily. Labs done on 10/17/2022 showed LDL 69 (9) Abnormal TSH: Code(s): R79.89 - Other specified abnormal findings of blood chemistry Category: Medical Plan: Runs low TSH, not new for her. Last TSH on 02/23/2023 was 0.06. She has no reports of heart palpitations. She says she had recent labs [place] [facility] obtain. (10) Pulmonary nodule: Code(s): R91.1 - Solitary pulmonary nodule Category: Surgical Plan: Being followed by surgery and pulmonology. She did undergo a thoracotomy with wedge resection, biopsy on 03/12/2023. She still has discomfort along left lateral chest region and sob with acivity. She fatigues easily and has been mostly sedentary. She talks about going to the pain clinic and pulm rehab. (11) S/P thoracotomy: Code(s): Z98.890 - Other specified postprocedural states Category: Surgical Plan: As above Plan Time spent on chart review, documentation, interview and assessment Orders: Orders CA echo transthoracic complete 03/28/24 I34.2 - Nonrheumatic mitral (valve) stenosis, I35.0 - Nonrheumatic aortic (valve) stenosis Coding Level of Care Code Est Pt Level 4 (67573) Diagnoses Pericarditis I31.9 S/P cardiac catheterization Z98.890 Coronary artery disease involving holy cross coronary artery of [place] cross heart with angina pectoris I25.119 Associated angina: with unspecified form of angina Coronary Disease-Associated Artery/Lesion type: [place] artery [place] vs. transplanted heart: holy cross heart History of heart artery stent Z95.5 Nonrheumatic mitral valve stenosis I34.2 Cardiac valve disease etiology: nonrheumatic Nonrheumatic aortic valve stenosis I35.0 Cardiac valve disease etiology: nonrheumatic Radiation-induced heart disease I51.9 Hyperlipidemia, unspecified hyperlipidemia type E78.5 Hyperlipidemia type: unspecified Abnormal TSH R79.89 Pulmonary nodule R91.1 S/P thoracotomy Z98.890 Time Spent (min) 30
[2023-08-10 09:19] VITALS: BP 108/62; PULSE 84; BMI 36.4
== END 2023-08-10 09:55 | disposition home or self-care (01) ==
PROVIDERS: PCP Internal Medicine; Visit Provider Nurse Practitioner Family
DX: I31.9 Disease of pericardium, unspecified (principal); Z98.890 Other specified postprocedural states; I25.119 Atherosclerotic heart disease of native coronary artery with unspecified angina pectoris; Z95.5 Presence of coronary angioplasty implant and graft; I34.2 Nonrheumatic mitral (valve) stenosis; I35.0 Nonrheumatic aortic (valve) stenosis; I51.9 Heart disease, unspecified; E78.5 Hyperlipidemia, unspecified; R79.89 Other specified abnormal findings of blood chemistry; R91.1 Solitary pulmonary nodule
CPT/HCPCS: 99214

== ENCOUNTER → 2023-08-10 08:50 | Outpatient (BNVA) | payer OTHER, SELFPAY ==
[2023-07-28 10:56] VITALS: BP 100/50; BP 114/58; BP 156/54; BMI 40.1
== END ==
PROVIDERS: PCP Internal Medicine; Visit Provider Nurse Practitioner Family

== ENCOUNTER 2023-08-17 10:26 | Outpatient (AMB) | payer BC, SELFPAY ==
[2022-10-09 07:53] VITALS: BP 114/58; BP 156/54
[2023-07-28 10:56] VITALS: BP 100/50; BP 114/58; BP 156/54; BMI 40.1
--- NOTE | 2023-08-17 10:28 | A.OFFVIS_ITS ---
Vital Signs 08/17/23 10:30 Height 5 ft 2 in Weight 198 lb BMI 36.2 BP 120/70 Blood Pressure Location Lt brachial Position Sitting Respiration 14 Pulse 94 Pulse Source Pulse Oximeter Pulse Oximetry (%) 99 Oxygen Delivery Method Room Air Intake Visit Reasons: Mononeuropathies Allergies oxycodone [From PERCOCET] Allergy (Intermediate, Verified 08/19/23 08:08) HIVES Sulfa (Sulfonamide Antibiotics) [SULFA (SULFONAMIDE ANTIBIOTICS)] Allergy (Intermediate, Verified 08/19/23 08:08) HIVES diatrizoate meglumine [Gastrografin] Allergy (Unknown, Verified 08/19/23 08:08) red rash Medication List - Last Reconciled 08/17/23 by Christiane Gill LPN albuterol sulfate 90 mcg/actuation 2 puffs inhalation DAILY PRN aspirin (Ecotrin Low Strength) 81 mg PO DAILY atorvastatin 40 mg PO DAILY cane As directed cholecalciferol (vitamin D3) 50 mcg PO DAILY jvsexmynznr-lewvfduxe-xjuegfnr 100-62.5-25 mcg (Trelegy Ellipta) 1 inh inhalation DAILY 90 days gabapentin 100 mg PO BEDTIME ipratropium-albuterol 0.5 mg-3 mg(2.5 mg base)/3 mL 3 mL inhalation Q6-8H PRN levothyroxine (Levoxyl) 125 mcg PO DAILY lorazepam 0.5 mg PO BID PRN meclizine 12.5 mg PO DAILY PRN mesalamine ER (Apriso) 1.5 grams (4 x 0.375 gram) PO DAILY morphine 15 mg PO BID PRN nortriptyline 10 mg PO BEDTIME pantoprazole 40 mg PO DAILY sertraline 125 mg PO DAILY sertraline 25 mg PO DAILY ubrogepant (Ubrelvy) 50 mg PO DAILY PRN ursodiol 500 mg PO BID walker (Ultra-Light Rollator misc) As directed HPI HPI Mononeuropathies: Details: 57 year old female presenting with left chest wall pain that started in March of 2023. She has past history of notable for Hodgkin's lymphoma 30 years ago for which she underwent radiation off her chest. Many years later she started developing recurrent pleural fusions for which she underwent a pleurodesis in 2019 subsequently she developed an active lesion on her PET scan of the chest which was thought to be an active, requiring surgical excision. She underwent surgical excision and the mass was found to be benign but since then she has had left chest wall pain thoracotomy scar. The pain is described aching, s tabbing, and tightening sensation. She describes pain is 4-5/10. She has tried gabapentin a month ago which was started by her PCP. She has painful ribs usually at night when she goes to bed. She always has difficulty sleeping on her left side. She has tried TENS unit but she reports increased pain with that. She gets sharp pain and swelling in her upper abdomen. She suspects the pain is related to nerve. She has been taking nortriptyline for migraines and sertraline for anxiety and depression. She has been taking blood thinners, Brilinta and takes baby aspirin twice a day. She has history of shortness of breath for which she has tried symbicort, Breo Ellipta, Pulmicort and she currently has been using Trelegy Ellipta. She denies DEXA scan done in the past. She worked at [employer] for 26 years. [facility] Medical History History of mantle field radiation therapy (~1992) Environmental allergies History of shingles CAD (coronary artery disease) Stented coronary artery (~2022) Hyperlipidemia Obesity Mitral stenosis Anxiety and depression Tubular adenoma of colon History of Hodgkin's lymphoma (~1992) Radiation-induced heart disease Aortic stenosis Asthma Hypothyroid Hepatic steatosis GERD (gastroesophageal reflux disease) Herpes Surgical History History of lymph node excision (03/12/23) History of lung biopsy (02/11/23) History of repair of hiatal hernia (~2017) History of thoracentesis (~2018) History of ankle surgery History of section History of colonoscopy History of heart artery stent (~2022) History of arthroscopy of right shoulder History of sleeve gastrectomy (~2017) History of esophagogastroduodenoscopy (EGD) History of cholecystectomy Family History Mother Colon cancer Father Hypertension Prostate cancer Son Diabetes Daughter Autism Social History Household Members: Spouse and Family Housing: House Are you a primary healthcare account manager to a significant other at home: No Do you presently have visiting nurse or other home services: No Alcohol intake: current Alcohol intake frequency: holidays/special occasions only Patient Tobacco Use Status: Never used Tobacco e-Cigarette/Vaping Use: Never Used Substance Use Type: Marijuana service: No 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: employed 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 Review of Systems Const All systems reviewed & are unremarkable except as noted in HPI and below Physical Exam Vital Signs: Last Vital Signs Pulse 94 08/17/23 10:30 Resp 14 08/17/23 10:30 BP 120/70 08/17/23 10:30 Pulse Ox 99 08/17/23 10:30 Oxygen Delivery Method Room Air 08/17/23 10:30 BMI result Body Mass Index 36.2 Const General: cooperative, healthy appearing, comfortable and no acute distress Orientation/consciousness: patient oriented x3 Neck Neck: Yes normal visual inspection and Yes no JVD Chest Chest palpation & inspection: normal inspection of the chest Resp Effort & Inspection: normal respiratory effort Auscultation: clear to auscultation bilaterally, no crackles, no rales, no rhonchi and no wheezes Cardio Jugular venous distension: no JVD Rate: regular rate Rhythm: regular rhythm Heart sounds: S1 normal heart sound present, S2 normal heart sound present, no murmurs and no rubs Neuro General: patient oriented x3 Extrem General: Yes normal to inspection, No no pedal edema and No calf tenderness Psych Appearance: grossly normal Mental Status: mental status grossly normal Speech and movement: Normal speech and movement present Assessment & Plan Assessment & Plan (1) Current chronic use of inhaled steroid: Code(s): 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 She has already tried and failed neuropathic medications as well as transcutaneous electrical nerve stimulation therapy. May need to consider neuromodulation strategies. Follow-up in 2 weeks. Orders: Orders XR DEXA axial skeleton 08/17/23 G89.12 - Acute post-thoracotomy pain, Z79.51 - detention (current) use of inhaled steroids Patient Instructions: Scribed for Dr. Carrillo by Bert Funez, hospital medical biller, on 08/17/2023. I, Dr. Carrillo, have personally reviewed and agree with the information entered by the scribe Coding Level of Care Code New Pt Level 4 (37021) Diagnoses Current chronic use of inhaled steroid Z79.51 Intercostal neuralgia G58.8 Post-thoracotomy pain G89.12
[2023-08-17 10:30] VITALS: BP 120/70; PULSE 94; RESP 14; O2SAT 99; BMI 36.2
== END 2023-08-17 11:08 | disposition home or self-care (01) ==
PROVIDERS: PCP Internal Medicine; Referring Provider Nurse Practitioner Family; Visit Provider Internal Medicine
DX: G58.8 Other specified mononeuropathies (principal); G89.12 Acute post-thoracotomy pain; Z79.51 Long term (current) use of inhaled steroids
CPT/HCPCS: 99204

== ENCOUNTER → 2023-08-17 10:26 | Outpatient (BNVA) | payer BC, SELFPAY ==
[2023-07-28 10:56] VITALS: BP 100/50; BP 114/58; BP 156/54; BMI 40.1
== END ==
PROVIDERS: PCP Internal Medicine; Referring Provider Nurse Practitioner Family; Visit Provider Internal Medicine

== ENCOUNTER 2023-08-19 08:00 | Outpatient (AMB) | payer BC, SELFPAY ==
[2023-07-28 10:56] VITALS: BP 100/50; BP 114/58; BP 156/54; BMI 40.1
--- NOTE | 2023-08-19 08:02 | MHC.OFFVIS ---
Vital Signs 08/19/23 08:06 Height 5 ft Weight 200 lb BMI 39.1 BP 142/65 H Blood Pressure Location Lt brachial Position Sitting Respiration 14 Pulse 98 Pulse Source Pulse Oximeter Pulse Oximetry (%) 97 Intake Visit Reasons: left T6-T7-T8 intercostal NB Allergies oxycodone [From PERCOCET] Allergy (Intermediate, Verified 08/19/23 08:08) HIVES Sulfa (Sulfonamide Antibiotics) [SULFA (SULFONAMIDE ANTIBIOTICS)] Allergy (Intermediate, Verified 08/19/23 08:08) HIVES diatrizoate meglumine [Gastrografin] Allergy (Unknown, Verified 08/19/23 08:08) red rash Medication List - Last Reconciled 08/19/23 by Christiane Gill LPN albuterol sulfate 90 mcg/actuation 2 puffs inhalation DAILY PRN aspirin (Ecotrin Low Strength) 81 mg PO DAILY atorvastatin 40 mg PO DAILY cane As directed cholecalciferol (vitamin D3) 50 mcg PO DAILY [id number]-[id number]-[id number] 100-62.5-25 mcg (Trelegy Ellipta) 1 inh inhalation DAILY 90 days gabapentin 100 mg PO BEDTIME ipratropium-albuterol 0.5 mg-3 mg(2.5 mg base)/3 mL 3 mL inhalation Q6-8H PRN levothyroxine (Levoxyl) 125 mcg PO DAILY lorazepam 0.5 mg PO BID PRN meclizine 12.5 mg PO DAILY PRN mesalamine ER (Apriso) 1.5 grams (4 x 0.375 gram) PO DAILY morphine 15 mg PO BID PRN nortriptyline 10 mg PO BEDTIME pantoprazole 40 mg PO DAILY sertraline 125 mg PO DAILY sertraline 25 mg PO DAILY ubrogepant (Ubrelvy) 50 mg PO DAILY PRN ursodiol 500 mg PO BID walker (Ultra-Light Rollator misc) As directed HPI HPI left T6-T7-T8 intercostal NB: Details: 57-year-old female who presents to the office for left T6-T7-T8 intercostal nerve block Patient presents for scheduled procedure. Denies any recent cough, cold, infection, fever or other significant changes in medical history since last office visit. She states she is not diabetic. She is going to stop taking Plavix by the end of this month. FORMERLY [facility], [facility] Medical History History of mantle field radiation therapy (~1992) Environmental allergies History of shingles CAD (coronary artery disease) Stented coronary artery (~2022) Hyperlipidemia Obesity Mitral stenosis Anxiety and depression Tubular adenoma of colon History of Hodgkin's lymphoma (~1992) Radiation-induced heart disease Aortic stenosis Asthma Hypothyroid Hepatic steatosis GERD (gastroesophageal reflux disease) Herpes Surgical History History of lymph node excision (03/12/23) History of lung biopsy (02/11/23) History of repair of hiatal hernia (~2017) History of thoracentesis (~2018) History of ankle surgery History of section History of colonoscopy History of heart artery stent (~2022) History of arthroscopy of right shoulder History of sleeve gastrectomy (~2017) History of esophagogastroduodenoscopy (EGD) History of cholecystectomy Family History Mother Colon cancer Father Hypertension Prostate cancer Son Diabetes Daughter Autism Social History Household Members: Spouse and Family Housing: House Are you a primary resident care coordinator to a significant other at home: No Do you presently have visiting nurse or other home services: No Alcohol intake: current Alcohol intake frequency: holidays/special occasions only Patient Tobacco Use Status: Never used Tobacco e-Cigarette/Vaping Use: Never Used Substance Use Type: Marijuana service: No 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: employed 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 Alert and oriented. Mood and affect appropriate. Follows and participates in conversation appropriately. Respiratory effort is unlabored. Able to transition from sit to stand unassisted. Office Procedures Nerve Block Details: T6-T7-T8 Intercoastal nerve block After obtaining written consent, pre-procedure time-out was completed. The patient was placed in a left lateral position. The relevant levels of the intercostal nerves were physically palpated corresponding to the patient's pain and marked. Using ultrasound, the appropriate landmarks including the rib, intercostal muscles and pleura were identified. The skin was anesthetized with ethyl chloride spray. A 21-gauge 80 mm echostim needle was advanced under sonographic guidance in proximity to each of the intercostal nerves. Aspiration was negative for heme and air. 3 cc of ropivacaine 0.5% mixed with 5-10 mg Kenalog was injected around each of the targeted nerves. The needle was removed, skin cleansed and a sterile bandage was applied. The patient tolerated the procedure well and no complications were encountered. Following the procedure, the patient's vital signs and respiration were stable. The patient was discharged home in good condition with post-procedural instructions. Time Out: Immediately prior to the procedure, the following was verbally confirmed that there is a signed consent form and that the correct patient, planned procedure, site and side are consistent with documentation and that necessary equipment and/or blood products are available prior to the start of the case. Complications: none EBL: <1 cc [id number] Peripheral Nerve Block Procedure code (CPT) selection complete Results Reviewed Results Reviewed: 07/03/23: CT CHEST WITHOUT CONTRAST FINDINGS: LUNGS: There is a thick-walled loculated presumed pneumothorax present measuring 3.6 x 3.1 x 2.3 cm. Chest tubes had been present in this region in March but have subsequently been removed. Again seen is abnormal density abutting the superior mediastinum along the left mediastinal surface extending from the apex down to the level of the jackie. The thickness of the soft tissue abutting the mediastinum appears slightly increased compared to the 11/07/2022 study measuring 0.8 cm at that time and 1.0 cm now (5:106 compare prior 13:14). At the time of the prior study an apical mass was seen which had calcifications in it and was probably related to the pleura. This appears decreased in size compared to the 11/07/2022 study when this measured a maximum of 2.6 cm in thickness compared with 1.3 cm now (5:91 compare prior 13:9). There is nodular thickening along the major fissure laterally which appears similar to the prior. There is band-like chronic atelectasis in the left upper lobe new when compared to the prior study associated with pleural thickening. The right lung is clear without masses, infiltrates or effusion. MEDIASTINUM: Heart size normal. No mediastinal or hilar lymphadenopathy. CORONARY ARTERY CALCIFICATION: Mild. PLEURA: There is no pleural effusion. . AXILLA: No lymphadenopathy. UPPER ABDOMEN: Status post cholecystectomy. No adrenal mass is seen. There has been a prior gastric sleeve. OSSEOUS STRUCTURES: There is a fracture of the posterior left sixth rib which is displaced with no evidence of healing. There are fractures involving the seventh and eighth ribs below this level with periosteal reaction and some evidence of healing. IMPRESSION: 1. There is a thick-walled loculated pneumothorax present in the left upper lobe. The thickness of the soft tissue abutting the mediastinum appears slightly increased compared to the 11/07/2022 study. 2. The apical mass appears decreased in size compared to the 11/07/2022 study. 3. There is new band-like atelectasis in the left upper lobe associated with pleural thickening. 4. There are fractures of the left sixth, seventh and eighth ribs with some evidence of healing. Fleischner guidelines were followed. 05/12/23: US ABDOMEN COMPLETE FINDINGS: PANCREAS: Normal. ABDOMINAL AORTA: Calcific atherosclerotic changes are present in the abdominal aorta without aneurysm. INFERIOR VENA CAVA: Visualized portions are normal. LIVER: The liver is normal in size. The liver contour is normal. There is diffuse increased liver parenchymal echogenicity, consistent with hepatic steatosis. No focal hepatic lesion. There is no intrahepatic biliary duct dilatation seen. GALLBLADDER: Surgically absent. COMMON BILE DUCT: Normal in caliber measuring 0.4 cm in diameter. RIGHT KIDNEY: No hydronephrosis. No renal calculi or focal parenchymal lesions. The kidney measures 9.5 cm in maximum dimension. LEFT KIDNEY: Normal. No hydronephrosis. No renal calculi or focal parenchymal lesions. The kidney measures 9.0 cm in maximum dimension. SPLEEN: Normal. The spleen measures 8.0 cm in maximum dimension. FREE FLUID: None. IMPRESSION: Hepatic steatosis. Assessment & Plan Assessment & Plan (1) Post-thoracotomy pain: Code(s): G89.12 - Acute post-thoracotomy pain Category: Medical (2) Intercostal neuralgia: Code(s): G58.8 - Other specified mononeuropathies Category: Medical Plan Patient is status post left T6-T7-T8 intercostal nerve block. Patient tolerated the procedure well and was discharged home in stable condition with discharge instructions. All questions were answered. We will follow-up in two weeks via telehealth to assess response to therapy. A follow-up appointment was made during today's visit. Scribed for Dr. Carrillo by Jesse Cardenas, medical laboratory specialist, on 08/19/2023. I, Dr. Carrillo, have personally reviewed and agree with the information entered by the scribe. Coding Level of Care Code Procedure Only Diagnoses Post-thoracotomy pain G89.12 Intercostal neuralgia G58.8 CPT Codes Nerve Block - Nerve Block 8: [id number] Peripheral Nerve Block ([id number])
[2023-08-19 08:06] VITALS: BP 142/65; PULSE 98; RESP 14; O2SAT 97; BMI 39.1
== END 2023-08-19 08:32 | disposition home or self-care (01) ==
PROVIDERS: PCP Internal Medicine; Visit Provider Internal Medicine
DX: G58.8 Other specified mononeuropathies (principal); G89.12 Acute post-thoracotomy pain
CPT/HCPCS: 64420; 64421; 76942

== ENCOUNTER → 2023-08-19 08:00 | Outpatient (BNVA) | payer BC, SELFPAY ==
[2023-07-28 10:56] VITALS: BP 100/50; BP 114/58; BP 156/54; BMI 40.1
== END ==
PROVIDERS: PCP Internal Medicine; Visit Provider Internal Medicine
DX: G89.12 Acute post-thoracotomy pain (principal); G58.8 Other specified mononeuropathies
CPT/HCPCS: 64420; 64421; J2795; J3301

== ENCOUNTER 2023-08-21 11:20 | Outpatient (AMB) | payer BC, SELFPAY ==
[2023-07-28 10:56] VITALS: BP 100/50; BP 114/58; BP 156/54; BMI 40.1
--- NOTE | 2023-08-21 11:38 | MHC.OFFVIS ---
Vital Signs 08/21/23 11:39 Height 5 ft Weight 197 lb 6 oz BMI 38.5 BP 120/68 Blood Pressure Location Lt brachial Position Sitting Pulse 77 Pulse Source Pulse Oximeter Pulse Oximetry (%) 97 Oxygen Delivery Method Room Air Intake Visit Reasons: crackles/ unrelenting cough Allergies oxycodone [From PERCOCET] Allergy (Intermediate, Verified 08/21/23 11:41) HIVES Sulfa (Sulfonamide Antibiotics) [SULFA (SULFONAMIDE ANTIBIOTICS)] Allergy (Intermediate, Verified 08/21/23 11:41) HIVES diatrizoate meglumine [Gastrografin] Allergy (Unknown, Verified 08/21/23 11:41) red rash HPI HPI crackles/ unrelenting cough: Details: Rose Marie is a very pleasant 57 year old female, never smoker, with underlying history of asthma, moderate aortic and mitral valve stenosis and h/o hodgkin's lymphoma in her 20s s/p mantle radiation, s/p left thoracentesis and pleurodesis, in [address] Flowers for recurrent pleural effusions, negative for malignancies. On 03/12/23 she underwent left mini thoracotomy with wedge resection of PRASHANT and excision of right groin lymph node with Dr. Washington for PET avid findings. Biopsy negative for carcinoma. At the last visit, she was switched to Trelegy and reports significant improvements in symptoms. Today she presents for an acute visit. She reports chest congestion, productive cough with green sputum. She denies wheezing and no changes to baseline dyspnea. She has been using soco with no changes in symptoms. She denies fevers or sick contacts. PENDING SALE TO [facility] Medical History History of mantle field radiation therapy (~1992) Environmental allergies History of shingles CAD (coronary artery disease) Stented coronary artery (~2022) Hyperlipidemia Obesity Mitral stenosis Anxiety and depression Tubular adenoma of colon History of Hodgkin's lymphoma (~1992) Radiation-induced heart disease Aortic stenosis Asthma Hypothyroid Hepatic steatosis GERD (gastroesophageal reflux disease) Herpes Surgical History History of lymph node excision (03/12/23) History of lung biopsy (02/11/23) History of repair of hiatal hernia (~2018) History of thoracentesis (~2019) History of ankle surgery History of section History of colonoscopy History of heart artery stent (~2022) History of arthroscopy of right shoulder History of sleeve gastrectomy (~2017) History of esophagogastroduodenoscopy (EGD) History of cholecystectomy Family History Mother Colon cancer Father Hypertension Prostate cancer Son Diabetes Daughter Autism Social History Household Members: Spouse and Family Housing: House Are you a primary critical care nurse to a significant other at home: No Do you presently have visiting nurse or other home services: No Alcohol intake: current Alcohol intake frequency: holidays/special occasions only Patient Tobacco Use Status: Never used Tobacco e-Cigarette/Vaping Use: Never Used Substance Use Type: Marijuana service: No 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: employed 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 Review of Systems Const Denies excessive sweating, Denies fever(s), Denies headache(s) and Denies night sweats Eyes Denies dry eyes, Denies irritation and Denies itchy eyes ENT Reports Normal hearing present, Denies headache(s), Denies nasal congestion, Denies nasal discharge and Denies sore throat Card Denies claudication, Denies leg edema, Denies orthopnea and Denies paroxysmal nocturnal dyspnea Resp Denies pain on inspiration, Denies pain with cough, Denies stridor and Denies wheezing Musc Denies myalgias Neuro Reports Normal hearing present and Denies headache(s) Endo Denies excessive sweating Terrance/Lymph Denies lymphadenopathy Aller/Immun Denies itchy eyes, Denies seasonal rhinorrhea and Denies wheezing Physical Exam Vital Signs: Last Vital Signs Pulse 77 08/21/23 11:39 BP 120/68 08/21/23 11:39 Pulse Ox 97 08/21/23 11:39 Oxygen Delivery Method Room Air 08/21/23 11:39 BMI result Body Mass Index 38.5 Const General: cooperative, no acute distress, well developed and alert Nutritional Appearance: obese Orientation/consciousness: patient oriented x3 Limitations: no limitations HEENT Head: Yes normal to inspection, Yes normocephalic and Yes atraumatic Ears: hearing grossly normal bilaterally and external ears normal Eyes General: appearance normal, both eyes and all related structures Eyelids: Yes eyelids normal Sclerae: sclerae normal EOM: EOMs intact bilaterally Neck Neck: Yes normal visual inspection and Yes no lymphadenopathy Lymphatic: no lymphadenopathy noted Chest Chest palpation & inspection: normal inspection of the chest Resp Effort & Inspection: normal respiratory effort, able to speak in complete sentences, no audible wheezes, Actively coughing Quality: wet, no stridor, not tachypneic, no tripod positioning and no use of accessory muscles Auscultation: no wheezes and diminished lung sounds Cardio Jugular venous distension: no JVD Rate: regular rate Rhythm: regular rhythm Skin Other: warm, dry General skin exam: no rashes or lesions noted Neuro General: patient oriented x3 Cranial nerves: Yes Normal hearing present Cognition (Neuro): normal cognition Gait exam (Neuro): Normal gait present Extrem General: Yes normal to inspection, Yes capillary refill normal, Yes no clubbing, cyanosis or edema and Yes no pedal edema Psych Appearance: grossly normal and well kempt Speech and movement: Normal speech and movement present and Clear speech present Affect: normal affect Attitude: cooperative Thought process: Normal thought process present Thought content: Normal thought content present Insight: Good insight present (Psych) Judgement: Good judgement present (Psych) Assessment & Plan Assessment & Plan (1) Asthma: Code(s): J45.909 - Unspecified asthma, uncomplicated Category: Medical (2) History of mantle field radiation therapy: Onset Date: ~1992 Code(s): Z92.3 - Personal history of irradiation Category: Medical (3) Pleural thickening: Code(s): J92.9 - Pleural plaque without asbestos Category: Medical (4) History of Hodgkin's lymphoma: Onset Date: ~1992 Comment: (treated with radiation in 1992 - in remission) Code(s): Z85.71 - Personal history of Hodgkin lymphoma Category: Medical (5) Abnormal radiologic finding of lung field: Code(s): R91.8 - Other nonspecific abnormal finding of lung field Category: Medical (6) Intercostal neuralgia: Code(s): G58.8 - Other specified mononeuropathies Category: Medical Plan Will treat bronchitic symptoms with a zpak. She is aware if symptoms do not improve to call Thursday and will send for CXR. All questions were answered and patient is in agreement of plan. Will follow up at regularly scheduled appointment. Medications: New azithromycin For 250 mg dose pack: take 500 mg today (day 1), then 250 mg for 4 days (days 2-5) PO 6 tabs 0RF Coding Level of Care Code Est Pt Level 3 (32482) Diagnoses Asthma J45.909 History of mantle field radiation therapy Z92.3 Pleural thickening J92.9 History of Hodgkin's lymphoma Z85.71 Abnormal radiologic finding of lung field R91.8 Intercostal neuralgia G58.8
[2023-08-21 11:39] VITALS: BP 120/68; PULSE 77; O2SAT 97; BMI 38.5
== END 2023-08-21 12:04 | disposition home or self-care (01) ==
PROVIDERS: PCP Internal Medicine; Visit Provider Nurse Practitioner Family
DX: J45.909 Unspecified asthma, uncomplicated (principal); Z92.3 Personal history of irradiation; J92.9 Pleural plaque without asbestos; Z85.71 Personal history of Hodgkin lymphoma; R91.8 Other nonspecific abnormal finding of lung field; G58.8 Other specified mononeuropathies
CPT/HCPCS: 99213

== ENCOUNTER → 2023-08-21 11:20 | Outpatient (BNVA) | payer BC, SELFPAY ==
[2023-07-28 10:56] VITALS: BP 100/50; BP 114/58; BP 156/54; BMI 40.1
== END ==
PROVIDERS: PCP Internal Medicine; Visit Provider Nurse Practitioner Family

== ENCOUNTER 2023-09-04 09:18 | Outpatient (AMB) | payer BC, SELFPAY ==
[2023-07-28 10:56] VITALS: BP 100/50; BP 114/58; BP 156/54; BMI 40.1
--- NOTE | 2023-09-04 09:18 | A.OFFVIS_ITS ---
Intake Visit Reasons: follow up after NB procedure Allergies oxycodone [From PERCOCET] Allergy (Intermediate, Verified 08/21/23 11:41) HIVES Sulfa (Sulfonamide Antibiotics) [SULFA (SULFONAMIDE ANTIBIOTICS)] Allergy (Intermediate, Verified 08/21/23 11:41) HIVES diatrizoate meglumine [Gastrografin] Allergy (Unknown, Verified 08/21/23 11:41) red rash HPI HPI follow up after NB procedure: Details: 57-year-old female who presents today via televisit for a follow up after NB procedure. The patient reports 70% relief following the procedure for three days. She discussed different treatment option with us today. She also discussed risks and benefits of the devices. She has been taking gabapentin 300 mg daily and nortriptyline. She has not tried pregabalin. She has tried OTC lidocaine topical patches with minimal benefit. Past procedures 08/19/23: T6-T7-T8 Intercoastal nerve block: 70% relief for three days. [facility] Medical History History of mantle field radiation therapy (~1992) Environmental allergies History of shingles CAD (coronary artery disease) Stented coronary artery (~2022) Hyperlipidemia Obesity Mitral stenosis Anxiety and depression Tubular adenoma of colon History of Hodgkin's lymphoma (~1992) Radiation-induced heart disease Aortic stenosis Asthma Hypothyroid Hepatic steatosis GERD (gastroesophageal reflux disease) Herpes Surgical History History of lymph node excision (03/12/23) History of lung biopsy (02/11/23) History of repair of hiatal hernia (~2017) History of thoracentesis (~2018) History of ankle surgery History of section History of colonoscopy History of heart artery stent (~2022) History of arthroscopy of right shoulder History of sleeve gastrectomy (~2017) History of esophagogastroduodenoscopy (EGD) History of cholecystectomy Family History Mother Colon cancer Father Hypertension Prostate cancer Son Diabetes Daughter Autism Social History Household Members: Spouse and Family Housing: House Are you a primary care program resident to a significant other at home: No Do you presently have visiting nurse or other home services: No Alcohol intake: current Alcohol intake frequency: holidays/special occasions only Patient Tobacco Use Status: Never used Tobacco e-Cigarette/Vaping Use: Never Used Substance Use Type: Marijuana service: No 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: employed 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 Location of provider rendering services: practice address Location of patient: address on file Patient Identification confirmed using: Name, : Yes Telehealth method: video Patient verbally consented to treatment: Yes Patient verbally consented to billing insurance company: Yes Patient informed of any privacy concerns related to visit: Yes Minutes spent on Phone/Video with Pt.: 10 Results Reviewed Results Reviewed: No imaging is available for review. Assessment & Plan Assessment & Plan (1) Post-thoracotomy pain: Code(s): G89.12 - Acute post-thoracotomy pain Category: Medical Plan Discussed peripheral nerve stimulators vs. dorsal root ganglion stimulators vs. spinal cord stimulators as a possible treatment option. Based on her symptoms, I recommend the SCS device. I will place a referral for psychology clearance. Once we have received psychology clearance, we will plan for a trial of the SCS implant. The patient will receive a call from [facility] for the psychology assessment. The patient will switch the gabapentin with pregabalin 25 milligrams in the morning and 50 milligrams at night and lidocaine 5% topical patches, 1 patch daily for her pain. Scribed for Dr. Carrillo by Ishmael Rick medical malpractice paralegal, on 09/04/2023. I, Dr. Carrillo, have personally reviewed and agree with the information entered by the scribe. Medications: New pregabalin 25 mg orally QAM; 50 mg orally QHS 90 caps 0RF lidocaine 5% leave on most painful area for up to 12 hrs 1 patch topical DAILY 30 ea 0RF Coding Level of Care Code Tele Est Pt Level 4 (02602) Diagnoses Post-thoracotomy pain G89.12
== END 2023-09-04 09:18 | disposition home or self-care (01) ==
LOC: HO.PMC 09:18
PROVIDERS: PCP Internal Medicine; Visit Provider Internal Medicine
DX: G89.12 Acute post-thoracotomy pain (principal)
CPT/HCPCS: 99214

== ENCOUNTER → 2023-09-04 09:18 | Outpatient (BNVA) | payer BC, SELFPAY ==
[2023-07-28 10:56] VITALS: BP 100/50; BP 114/58; BP 156/54; BMI 40.1
== END ==
PROVIDERS: PCP Internal Medicine; Visit Provider Internal Medicine

== ENCOUNTER → 2023-09-29 09:00 | Outpatient (BNV) | payer BC, SELFPAY ==
[2023-07-28 10:56] VITALS: BP 100/50; BP 114/58; BP 156/54; BMI 40.1
== END ==
PROVIDERS: PCP Internal Medicine; Visit Provider Radiology Diagnostic Radiology
DX: Z12.31 Encounter for screening mammogram for malignant neoplasm of breast (principal)
CPT/HCPCS: 77063; 77067

== ENCOUNTER 2023-09-29 09:05 | Outpatient (REF) | payer BC, SELFPAY ==
[2023-07-28 10:56] VITALS: BP 100/50; BP 114/58; BP 156/54; BMI 40.1
--- NOTE | ~2023-09-29 | MM_ITS ---
EXAMINATION: MM SCREENING DIGITAL BREAST TOMOSYNTHESIS, BILATERAL CLINICAL INFORMATION: Screening. Asymptomatic. COMPARISON: Mammography: 09/23/2022, 04/23/2021, 04/19/2020, 04/17/2020, 12/22/2018, 12/09/2017, 11/14/2016 Targeted right breast ultrasound 04/19/2020, 10/18/2020. TECHNIQUE: Digital breast tomosynthesis is performed in both the craniocaudal and mediolateral oblique views along with computer-aided detection (CAD). Synthesized 2D images are generated from the tomosynthesis. FINDINGS: There are scattered areas of fibroglandular density (ACR BI-RADS breast composition Category b). In the anterior lower inner right breast, there is a new oval 6 mm density for which diagnostic views are recommended. In the slightly more medial lower inner anterior right breast, there is a lobular lymph node present with prominent fatty hilum, not previously seen but benign. Otherwise, there are no suspicious masses, suspicious grouped calcifications, or areas of architectural distortion in either breast. The parenchymal pattern is otherwise stable from prior exams. There is no skin or axillary abnormality. MM/MM tomosynthesis screening BI IMPRESSION: There is a 6 mm oval new density in the most anterior lower inner right breast, for which spot magnification views are recommended and ultrasound if necessary to follow. There are no suspicious findings in the left breast. ASSESSMENT: BI-RADS BI-RADS 1 - Negative RECOMMENDATION: 1. Additional views of the right breast. 2. Targeted ultrasound if warranted after review of the additional views. 3. Radiology department staff will contact the patient for additional imaging. Additional Imaging required This examination should not preclude the clinical evaluation of a suspicious palpable abnormality.
--- NOTE | ~2023-09-29 | MM_ITS ---
EXAMINATION: BONE DENSITOMETRY CLINICAL INDICATION: Long-term, current, use of inhaled steroids. COMPARISON: This is the patient's baseline examination. TECHNIQUE: Using a [employer] DXA System (software version: 13.1) manufactured by [employer], dual-energy x-ray absorptiometry was performed of the lumbar spine and left hip. The images are of good technical quality. Summary results are attached. FINDINGS: LEFT FEMUR, NECK: BMD 0.868 g/cm2, Z-score -0.7, T-score -1.2, osteopenia. LEFT FEMUR, TOTAL: BMD 0.927 g/cm2, Z-score -0.6, T-score -0.6, normal. AP SPINE L1-L4: BMD 1.144 g/cm2, Z-score -0.3, T-score -0.3, normal. IDENTIFIED RISK FACTORS: Anticonvulsant, history of fracture (adult), secondary osteoporosis (intestinal or bowel disease, not IBS), secondary osteoporosis (partial gastrectomy), menopause. HISTORY OF FRACTURE: Other. MEDICATIONS: Calcium supplements or multivitamin, vitamin D. MM/XR DEXA axial skeleton IMPRESSION: 1. DIAGNOSIS: Osteopenia based on the lowest T-score value of -1.2 in the femoral neck applying World Health Organization criteria. 2. 10-YEAR FRACTURE RISK PREDICTION, FRAX: Major osteoporotic fracture (clinical spine, forearm, hip or shoulder) 10.2%. Hip fracture 0.6%. 3. Treatment Recommendations: NOF guidelines recommend consideration for treatment in postmenopausal women and men age 50 and older presenting with the following: -A hip or vertebral (clinical or morphometric) fracture. -T-score less than or equal to -2.5 at the femoral neck or spine after appropriate evaluation to exclude secondary causes. -Low bone mass at the hip or spine and a 10-year fracture probability by FRAX of greater than or equal to 3% for hip fracture or greater than or equal to 20% for major osteoporotic fracture based on the [place] adapted WHO algorithm. 4. Other Recommendations: All treatment decisions require clinical judgment and consideration of individual patient factors, including patient preferences, comorbidities, previous drug use, risk factors not captured in the FRAX model (e.g. frailty, falls, vitamin D deficiency, increased bone turnover, interval significant decline in bone density) and possible under or overestimation of fracture risk by FRAX. Additional medical evaluation for secondary cause of low bone mineral density may be appropriate. FUTURE SCAN RECOMMENDATION: People with diagnosed cases of osteoporosis or at high risk for fracture should have regular bone mineral density tests. For patients eligible for Medicare, routine testing is allowed once every 2 years. The testing frequency can be increased to one year for patients who have rapidly progressing disease, those who are receiving or discontinuing medical therapy to restore bone mass, or have additional risk factors.
== END 2023-09-29 09:06 | disposition home or self-care (01) ==
LOC: HO.MAMMO 09:05
PROVIDERS: PCP Internal Medicine; Visit Provider Internal Medicine
DX: Z12.31 Encounter for screening mammogram for malignant neoplasm of breast (principal); Z13.820 Encounter for screening for osteoporosis; G89.12 Acute post-thoracotomy pain; Z91.51 Personal history of suicidal behavior; Z78.0 Asymptomatic menopausal state
CPT/HCPCS: 77063; 77067; 77080

== ENCOUNTER 2023-09-30 14:17 | Outpatient (AMB) | payer BC, SELFPAY ==
[2022-10-09 07:53] VITALS: BP 114/58; BP 156/54
[2023-07-28 10:56] VITALS: BP 100/50; BP 114/58; BP 156/54; BMI 40.1
--- NOTE | 2023-09-30 14:18 | A.OFFVIS_ITS ---
Vital Signs 09/30/23 14:19 Height 5 ft Weight 211 lb 2 oz BMI 41.2 BP 126/70 Blood Pressure Location Lt brachial Position Sitting Pulse 83 Pulse Source Pulse Oximeter Pulse Oximetry (%) 97 Oxygen Delivery Method Room Air Intake Visit Reasons: pulmonary nodule Allergies oxycodone [From PERCOCET] Allergy (Intermediate, Verified 09/30/23 14:24) HIVES Sulfa (Sulfonamide Antibiotics) [SULFA (SULFONAMIDE ANTIBIOTICS)] Allergy (Intermediate, Verified 09/30/23 14:24) HIVES diatrizoate meglumine [Gastrografin] Allergy (Unknown, Verified 09/30/23 14:24) red rash HPI HPI pulmonary nodule : Details: Rose Marie is a very pleasant 57 year old female, never smoker, with underlying history of asthma, moderate aortic and mitral valve stenosis and h/o hodgkin's lymphoma in her 20s s/p mantle radiation, s/p left thoracentesis and pleurodesis, in [address] Flowers for recurrent pleural effusions, negative for malignancies. On 03/12/23 she underwent left mini thoracotomy with wedge resection of PRASHANT and excision of right groin lymph node with Dr. Washington for PET avid findings. Biopsy negative for carcinoma. At the last visit, she was given a zpak for chest congestion, productive cough with green sputum. She reports resolution of symptoms and has been doing quite well on Trelegy as well as Duoneb QD. She denies any visits to urgent care or hospitalizations since the last visit. She continues to report dyspnea on exertion however significantly less with current regimen. She denies cough, ch est tightness or wheezing. [facility] Medical History History of mantle field radiation therapy (~1992) Environmental allergies History of shingles CAD (coronary artery disease) Stented coronary artery (~2022) Hyperlipidemia Obesity Mitral stenosis Anxiety and depression Tubular adenoma of colon History of Hodgkin's lymphoma (~1992) Radiation-induced heart disease Aortic stenosis Asthma Hypothyroid Hepatic steatosis GERD (gastroesophageal reflux disease) Herpes Surgical History History of lymph node excision (03/12/23) History of lung biopsy (02/11/23) History of repair of hiatal hernia (~2018) History of thoracentesis (~2019) History of ankle surgery History of section History of colonoscopy History of heart artery stent (~2022) History of arthroscopy of right shoulder History of sleeve gastrectomy (~2017) History of esophagogastroduodenoscopy (EGD) History of cholecystectomy Family History Mother Colon cancer Father Hypertension Prostate cancer Son Diabetes Daughter Autism Social History Household Members: Spouse and Family Housing: House Are you a primary nonfarm animal caretaker to a significant other at home: No Do you presently have visiting nurse or other home services: No Alcohol intake: current Alcohol intake frequency: holidays/special occasions only Patient Tobacco Use Status: Never used Tobacco e-Cigarette/Vaping Use: Never Used Substance Use Type: Marijuana service: No 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: employed 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 Review of Systems Const Denies chills, Denies excessive sweating, Denies fever(s), Denies headache(s) and Denies night sweats Eyes Denies dry eyes, Denies irritation and Denies itchy eyes ENT Reports Normal hearing present, Denies headache(s), Denies nasal congestion, Denies nasal discharge, Denies post nasal drip and Denies sore throat Card Denies chest pain with activity, Denies claudication, Denies leg edema, Denies orthopnea and Denies paroxysmal nocturnal dyspnea Resp Denies chest congestion, Denies cough, Denies excessive phlegm production, Denies pain on inspiration, Denies pain with cough, Denies stridor and Denies wheezing Musc Denies myalgias Neuro Reports Normal hearing present and Denies headache(s) Endo Denies excessive sweating Terrance/Lymph Denies lymphadenopathy Aller/Immun Denies itchy eyes, Denies seasonal rhinorrhea and Denies wheezing Physical Exam Vital Signs: Last Vital Signs Pulse 83 09/30/23 14:19 BP 126/70 09/30/23 14:19 Pulse Ox 97 09/30/23 14:19 Oxygen Delivery Method Room Air 09/30/23 14:19 BMI result Body Mass Index 41.2 Const General: cooperative, healthy appearing, comfortable, no acute distress, well developed and alert Nutritional Appearance: obese Orientation/consciousness: patient oriented x3 Limitations: no limitations HEENT Head: Yes normal to inspection, Yes normocephalic and Yes atraumatic Ears: hearing grossly normal bilaterally and external ears normal Eyes General: appearance normal, both eyes and all related structures Eyelids: Yes eyelids normal Sclerae: sclerae normal EOM: EOMs intact bilaterally Neck Neck: Yes normal visual inspection and Yes no lymphadenopathy Lymphatic: no lymphadenopathy noted Chest Chest palpation & inspection: normal inspection of the chest Resp Effort & Inspection: normal respiratory effort, able to speak in complete sentences, no audible wheezes, no cough, no stridor, not tachypneic, no tripod positioning and no use of accessory muscles Auscultation: clear to auscultation bilaterally Cardio Jugular venous distension: no JVD Rate: regular rate Rhythm: regular rhythm Skin Other: warm, dry General skin exam: no rashes or lesions noted Neuro General: patient oriented x3 Cranial nerves: Yes Normal hearing present Cognition (Neuro): normal cognition Gait exam (Neuro): Normal gait present Extrem General: Yes normal to inspection, Yes capillary refill normal, Yes no clubbing, cyanosis or edema and Yes no pedal edema Psych Appearance: grossly normal and well kempt Speech and movement: Normal speech and movement present and Clear speech present Affect: normal affect Attitude: cooperative Thought process: Normal thought process present Thought content: Normal thought content present Insight: Good insight present (Psych) Judgement: Good judgement present (Psych) Assessment & Plan Assessment & Plan (1) Asthma: Code(s): J45.909 - Unspecified asthma, uncomplicated Category: Medical (2) History of mantle field radiation therapy: Onset Date: ~1992 Code(s): Z92.3 - Personal history of irradiation Category: Medical (3) Pleural thickening: Code(s): J92.9 - Pleural plaque without asbestos Category: Medical (4) History of Hodgkin's lymphoma: Onset Date: ~1992 Comment: (treated with radiation in 1992 - in remission) Code(s): Z85.71 - Personal history of Hodgkin lymphoma Category: Medical (5) Abnormal radiologic finding of lung field: Code(s): R91.8 - Other nonspecific abnormal finding of lung field Category: Medical (6) Intercostal neuralgia: Code(s): G58.8 - Other specified mononeuropathies Category: Medical Plan Advised to continue current regimen. She is aware if symptoms change to call office. All questions were answered and patient is in agreement of plan. Will follow up after chest CT or sooner if needed. Medications: New albuterol sulfate 90 mcg/actuation 2 puffs inhalation DAILY PRN 1 ea 3RF asthma Refilled ipratropium-albuterol 0.5 mg-3 mg(2.5 mg base)/3 mL 3 mL inhalation Q6-8H PRN 90 mL 3RF wheezing Coding Level of Care Code Est Pt Level 4 (77184) Diagnoses Asthma J45.909 History of mantle field radiation therapy Z92.3 Pleural thickening J92.9 History of Hodgkin's lymphoma Z85.71 Abnormal radiologic finding of lung field R91.8 Intercostal neuralgia G58.8
[2023-09-30 14:19] VITALS: BP 126/70; PULSE 83; O2SAT 97; BMI 41.2
== END 2023-09-30 14:54 | disposition home or self-care (01) ==
PROVIDERS: PCP Internal Medicine; Visit Provider Nurse Practitioner Family
DX: J45.909 Unspecified asthma, uncomplicated (principal); Z92.3 Personal history of irradiation; J92.9 Pleural plaque without asbestos; Z85.71 Personal history of Hodgkin lymphoma; R91.8 Other nonspecific abnormal finding of lung field; G58.8 Other specified mononeuropathies
CPT/HCPCS: 99214

== ENCOUNTER → 2023-09-30 14:17 | Outpatient (BNVA) | payer BC, SELFPAY ==
[2023-07-28 10:56] VITALS: BP 100/50; BP 114/58; BP 156/54; BMI 40.1
== END ==
PROVIDERS: PCP Internal Medicine; Visit Provider Nurse Practitioner Family

== ENCOUNTER 2023-11-17 14:04 | Outpatient (REF) | payer BC, SELFPAY ==
[2023-07-28 10:56] VITALS: BP 100/50; BP 114/58; BP 156/54; BMI 40.1
--- NOTE | ~2023-11-17 | MM_ITS ---
EXAMINATION: MM DIAGNOSTIC DIGITAL BREAST TOMOSYNTHESIS, RIGHT CLINICAL INFORMATION: Diagnostic follow-up from screening 09/29/2023, for a 6 mm oval density lower inner right breast, anterior one third, seen on screening exam which was not seen previously. COMPARISON: -Mammography: 09/29/2023, 09/23/2022, 04/23/2021, 04/19/2020, 04/17/2020, 12/22/2018, 12/09/2017 -Targeted right breast ultrasound 04/19/2020, 10/18/2020. TECHNIQUE: Digital right breast tomosynthesis is performed in the following views: Full field 3-D right mediolateral view, as well as 3-D spot compression right CC and MLO views. Computer-aided diagnosis was used for this study. FINDINGS: There are scattered areas of fibroglandular density (ACR BI-RADS breast composition Category b). The previously seen 6 mm oval density lower inner right breast anterior one third has resolved completely. There is no persistent abnormality present. There is a stable small benign intramammary lymph node in the approximate 6:00 axis anterior right breast. MM/MM tomosynthesis added views R IMPRESSION: -There are no findings suspicious for malignancy right breast. -The previously seen new 6 mm oval density lower inner anterior right breast has completely resolved. No further follow-up recommended. -Recommend the patient return to routine annual screening. ASSESSMENT: BI-RADS BI-RADS 2 - Benign Findings RECOMMENDATION: 1 year F/U Results were provided to the patient at time of visit by the technologist. This patient's information was entered into a reminder system with a target due date for their next mammogram. Electronically signed by: Wei Stewart MD 11/17/2023 04:24 PM EDT
== END 2023-11-17 14:05 | disposition home or self-care (01) ==
LOC: HO.MAMMO 14:04
PROVIDERS: PCP Internal Medicine; Visit Provider Internal Medicine
DX: R92.8 Other abnormal and inconclusive findings on diagnostic imaging of breast (principal)
CPT/HCPCS: 77061; 77065

== ENCOUNTER → 2023-11-17 14:15 | Outpatient (BNV) | payer BC, SELFPAY ==
[2023-07-28 10:56] VITALS: BP 100/50; BP 114/58; BP 156/54; BMI 40.1
== END ==
PROVIDERS: PCP Internal Medicine; Visit Provider Radiology Diagnostic Radiology
DX: N60.91 Unspecified benign mammary dysplasia of right breast (principal)
CPT/HCPCS: 77061; 77065

== ENCOUNTER 2023-12-02 10:49 | Outpatient (AMB) | payer BC, SELFPAY ==
[2023-07-28 10:56] VITALS: BP 100/50; BP 114/58; BP 156/54; BMI 40.1
--- NOTE | 2023-12-02 10:55 | A.OFFVIS_ITS ---
Vital Signs 12/02/23 10:56 Height 5 ft Weight 216 lb BMI 42.2 BP 132/63 Blood Pressure Location Lt brachial Position Sitting Respiration 15 Pulse 77 Pulse Source Pulse Oximeter Pulse Oximetry (%) 99 Oxygen Delivery Method Room Air Intake Visit Reasons: CHANGING OF MEDICATION/PROCEDURE Allergies oxycodone [From PERCOCET] Allergy (Intermediate, Verified 12/28/23 10:42) HIVES Sulfa (Sulfonamide Antibiotics) [SULFA (SULFONAMIDE ANTIBIOTICS)] Allergy (Intermediate, Verified 12/28/23 10:42) HIVES diatrizoate meglumine [Gastrografin] Allergy (Unknown, Verified 12/28/23 10:42) red rash Medication List - Last Reconciled 12/02/23 by Christiane Gill LPN albuterol sulfate 90 mcg/actuation 2 puffs inhalation DAILY PRN aspirin (Ecotrin Low Strength) 81 mg PO DAILY atorvastatin 40 mg PO DAILY 90 days cane As directed cholecalciferol (vitamin D3) 50 mcg PO DAILY dgvwsschixr-ndiudkorl-vbhqzwxp 100-62.5-25 mcg (Trelegy Ellipta) 1 inh inhalation DAILY 90 days ipratropium-albuterol 0.5 mg-3 mg(2.5 mg base)/3 mL 3 mL inhalation Q6-8H PRN levothyroxine (Levoxyl) 125 mcg PO DAILY lidocaine 5% 1 patch topical DAILY lorazepam 0.5 mg PO BID PRN meclizine 12.5 mg PO DAILY PRN mesalamine ER 1.5 grams (4 x 0.375 gram) PO DAILY morphine 15 mg PO BID PRN nortriptyline 10 mg PO BEDTIME pantoprazole 40 mg PO DAILY pregabalin 50 mg PO TID sertraline 125 mg PO DAILY sertraline 25 mg PO DAILY ubrogepant (Ubrelvy) 50 mg PO DAILY PRN ursodiol 500 mg PO BID walker (Ultra-Light Rollator misc) As directed HPI HPI CHANGING OF MEDICATION/PROCEDURE: Details: 57-year-old female who presents today to the office for changing of medication/procedure. She reports she has been having pain in the ribcage especially with movement of her scapula and occasionally with movement of the arm as well. She had surgery in 03/2023. She denies any trauma to the area. She only wears BM while driving. She is taking pregabalin twice in the morning, once in the afternoon, and once at night. She occasionally takes once in the morning and twice in the afternoon which causes fatigue. She takes pregabalin up to 5x daily without much improvement. She does not take oxycodone, gets itchiness. She is scheduled for CT scan of the chest in 01/2024. She started having cough after the last visit and had cold symptoms 1 month ago. She has a small area of shingles which is bothersome. She is taking sertraline, but she is not taking any Cymbalta. [facility] Medical History History of mantle field radiation therapy (~1992) Environmental allergies History of shingles CAD (coronary artery disease) Stented coronary artery (~2022) Hyperlipidemia Obesity Mitral stenosis Anxiety and depression Tubular adenoma of colon History of Hodgkin's lymphoma (~1992) Radiation-induced heart disease Aortic stenosis Asthma Hypothyroid Hepatic steatosis GERD (gastroesophageal reflux disease) Herpes Surgical History History of lymph node excision (03/12/23) History of lung biopsy (02/11/23) History of repair of hiatal hernia (~2017) History of thoracentesis (~2018) History of ankle surgery History of section History of colonoscopy History of heart artery stent (~2022) History of arthroscopy of right shoulder History of sleeve gastrectomy (~2017) History of esophagogastroduodenoscopy (EGD) History of cholecystectomy Family History Mother Colon cancer Father Hypertension Prostate cancer Son Diabetes Daughter Autism Social History Household Members: Spouse and Family Housing: House Are you a primary critical care physician assistant to a significant other at home: No Do you presently have visiting nurse or other home services: No Alcohol intake: current Alcohol intake frequency: holidays/special occasions only Patient Tobacco Use Status: Never used Tobacco e-Cigarette/Vaping Use: Never Used Substance Use Type: Marijuana service: No 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: employed 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 Alert and oriented. Mood and affect appropriate. Follows and participates in conversation appropriately. Respiratory effort is unlabored. Able to transition from sit to stand unassisted. Ambulates with bilaterally normal heel strike and toe off. Able to stand and walk on toes and heels. Tenderness to palpation overlying the 6th, 7th, 8th ribs region on the left side. Assessment & Plan Assessment & Plan (1) Post-thoracotomy pain: Code(s): G89.12 - Acute post-thoracotomy pain Category: Medical Plan It appears that her progressively worsening pain in the past couple of weeks is secondary to a rib abnormality. Potentially, recurrence of rib fractures at the same site where she previously had non healing fractures. She is scheduled for a repeat chest CT in January 2024. In the meanwhile, we discussed continuing pain management of the left side of her chest wall as we would for acute or fractures, including icing, lidocaine patch application, Tylenol and morphine as needed. She will continue to take pregabalin up to 5 times a day as she is currently doing for her chronic neuropathic pain. She will return to clinic for a left intercostal nerve block to help with her chest wall pain similar to what we had done before. I refilled her pregabalin. The patient is in agreement with the plan. Medications: Changed From pregabalin 50 mg PO TID 90 caps 3RF To pregabalin 50 mg orally 5 times per day; 150 caps 5RF Coding Level of Care Code Est Pt Level 3 (15162) Diagnoses Post-thoracotomy pain G89.12
[2023-12-02 10:56] VITALS: BP 132/63; PULSE 77; RESP 15; O2SAT 99; BMI 42.2
== END 2023-12-02 11:58 | disposition home or self-care (01) ==
PROVIDERS: PCP Internal Medicine; Visit Provider Internal Medicine
DX: G89.12 Acute post-thoracotomy pain (principal)
CPT/HCPCS: 99213

== ENCOUNTER → 2023-12-02 10:49 | Outpatient (BNVA) | payer BC, SELFPAY ==
[2023-07-28 10:56] VITALS: BP 100/50; BP 114/58; BP 156/54; BMI 40.1
== END ==
PROVIDERS: PCP Internal Medicine; Visit Provider Internal Medicine

== ENCOUNTER 2023-12-23 09:20 | Outpatient (AMB) | payer BC, SELFPAY ==
[2023-07-28 10:56] VITALS: BP 100/50; BP 114/58; BP 156/54; BMI 40.1
--- NOTE | 2023-12-23 09:22 | MHC.OFFVIS ---
Vital Signs 12/23/23 09:25 Height 5 ft Weight 221 lb BMI 43.2 BP 146/67 H Blood Pressure Location Rt radial Position Sitting Respiration 15 Pulse 81 Pulse Source Pulse Oximeter Pulse Oximetry (%) 99 Oxygen Delivery Method Room Air Intake Visit Reasons: left T6-T7-T8 intercostal NB Allergies oxycodone [From PERCOCET] Allergy (Intermediate, Verified 01/01/24 09:21) HIVES Sulfa (Sulfonamide Antibiotics) [SULFA (SULFONAMIDE ANTIBIOTICS)] Allergy (Intermediate, Verified 01/01/24 09:21) HIVES diatrizoate meglumine [Gastrografin] Allergy (Unknown, Verified 01/01/24 09:21) red rash Medication List - Last Reconciled 12/23/23 by Christiane Gill LPN albuterol sulfate 90 mcg/actuation 2 puffs inhalation DAILY PRN aspirin (Ecotrin Low Strength) 81 mg PO DAILY atorvastatin 40 mg PO DAILY 90 days cane As directed cholecalciferol (vitamin D3) 50 mcg PO DAILY tyrwdqkvwkd-ukwgfoleu-iqgvyfyk 100-62.5-25 mcg (Trelegy Ellipta) 1 inh inhalation DAILY 90 days ipratropium-albuterol 0.5 mg-3 mg(2.5 mg base)/3 mL 3 mL inhalation Q6-8H PRN levothyroxine (Levoxyl) 125 mcg PO DAILY lidocaine 5% 1 patch topical DAILY lorazepam 0.5 mg PO BID PRN meclizine 12.5 mg PO DAILY PRN mesalamine ER 1.5 grams (4 x 0.375 gram) PO DAILY morphine 15 mg PO BID PRN nortriptyline 10 mg PO BEDTIME pantoprazole 40 mg PO DAILY pregabalin 50 mg orally 5 times per day; sertraline 125 mg PO DAILY sertraline 25 mg PO DAILY ubrogepant (Ubrelvy) 50 mg PO DAILY PRN ursodiol 500 mg PO BID walker (Ultra-Light Rollator misc) As directed HPI HPI left T6-T7-T8 intercostal NB: Details: 57-year-old female who presents today to the office for left T6-T7-T8 intercostal NB. She reports increased pain associated with some tightness since last visit. Denies any recent cough, cold, infection, fever or other significant changes in medical history since last office visit. Past procedures 08/19/23: T6-T7-T8 Intercoastal nerve block: 70% relief for three days. [facility] Medical History History of mantle field radiation therapy (~1992) Environmental allergies History of shingles CAD (coronary artery disease) Stented coronary artery (~2022) Hyperlipidemia Obesity Mitral stenosis Anxiety and depression Tubular adenoma of colon History of Hodgkin's lymphoma (~1992) Radiation-induced heart disease Aortic stenosis Asthma Hypothyroid Hepatic steatosis GERD (gastroesophageal reflux disease) Herpes Surgical History History of lymph node excision (03/12/23) History of lung biopsy (02/11/23) History of repair of hiatal hernia (~2017) History of thoracentesis (~2018) History of ankle surgery History of section History of colonoscopy History of heart artery stent (~2022) History of arthroscopy of right shoulder History of sleeve gastrectomy (~2017) History of esophagogastroduodenoscopy (EGD) History of cholecystectomy Family History Mother Colon cancer Father Hypertension Prostate cancer Son Diabetes Daughter Autism Social History Household Members: Spouse and Family Housing: House Are you a primary professional healthcare representative to a significant other at home: No Do you presently have visiting nurse or other home services: No Alcohol intake: current Alcohol intake frequency: holidays/special occasions only Patient Tobacco Use Status: Never used Tobacco e-Cigarette/Vaping Use: Never Used Substance Use Type: Marijuana service: No 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: employed 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 Alert and oriented. Mood and affect appropriate. Follows and participates in conversation appropriately. Respiratory effort is unlabored. Able to transition from sit to stand unassisted. Ambulates with bilaterally normal heel strike and toe off. Office Procedures Nerve Block Details: T6-T7-T8 Intercoastal nerve block, left, ultrasound-guided After obtaining written consent, pre-procedure time-out was completed. The patient was placed in a left lateral position. The relevant levels of the intercostal nerves were physically palpated corresponding to the patient's pain and marked. Using ultrasound, the appropriate landmarks including the rib, intercostal muscles and pleura were identified. The skin was anesthetized with ethyl chloride spray. A 21-gauge 80 mm echostim needle was advanced under sonographic guidance in proximity to each of the intercostal nerves. Aspiration was negative for heme and air. 3 cc of ropivacaine 0.5% mixed with 5-10 mg Kenalog was injected around each of the targeted nerves. The needle was removed, skin cleansed and a sterile bandage was applied. The patient tolerated the procedure well and no complications were encountered. Following the procedure, the patient's vital signs and respiration were stable. The patient was discharged home in good condition with post-procedural instructions. Time Out: Immediately prior to the procedure, the following was verbally confirmed that there is a signed consent form and that the correct patient, planned procedure, site and side are consistent with documentation and that necessary equipment and/or blood products are available prior to the start of the case [id number] Peripheral Nerve Block Procedure code (CPT) selection complete Assessment & Plan Assessment & Plan (1) Post-thoracotomy pain: Code(s): G89.12 - Acute post-thoracotomy pain Category: Medical (2) Intercostal neuralgia: Code(s): G58.8 - Other specified mononeuropathies Category: Medical Plan Patient is status post left T6-T7-T8 intercostal NB. Patient tolerated procedure well and was discharged home in stable condition with discharge instructions. All questions were answered. Discussed temporary nerve stimulation versus spinal cord stimulation as possible treatment options for long-term relief. Scribed for Dr. Carrillo by Daron biomedical equipment support specialist, on 12/23/2023. I, Dr. Carrillo, have personally reviewed and agree with the information entered by the scribe Coding Level of Care Code Procedure Only Diagnoses Post-thoracotomy pain G89.12 Intercostal neuralgia G58.8 CPT Codes Nerve Block - Nerve Block 8: [id number]-[id number] Peripheral Nerve Block ([id number])
[2023-12-23 09:25] VITALS: BP 146/67; PULSE 81; RESP 15; O2SAT 99; BMI 43.2
== END 2023-12-23 09:59 | disposition home or self-care (01) ==
PROVIDERS: PCP Internal Medicine; Visit Provider Internal Medicine
DX: G89.12 Acute post-thoracotomy pain (principal); G58.8 Other specified mononeuropathies
CPT/HCPCS: 64420; 64421; 76942

== ENCOUNTER → 2023-12-23 09:20 | Outpatient (BNVA) | payer BC, SELFPAY ==
[2023-07-28 10:56] VITALS: BP 100/50; BP 114/58; BP 156/54; BMI 40.1
== END ==
PROVIDERS: PCP Internal Medicine; Visit Provider Internal Medicine
DX: G89.12 Acute post-thoracotomy pain (principal); G58.8 Other specified mononeuropathies
CPT/HCPCS: 64420; 64421; J2795; J3301

== ENCOUNTER 2023-12-28 10:33 | Outpatient (AMB) | payer BC, SELFPAY ==
[2022-10-09 07:53] VITALS: BP 114/58; BP 156/54
[2023-07-28 10:56] VITALS: BP 100/50; BP 114/58; BP 156/54; BMI 40.1
--- NOTE | 2023-12-28 10:36 | MHC.OFFVIS ---
Vital Signs 12/28/23 10:43 Height 5 ft 2 in Weight 210 lb BMI 38.4 BP 116/55 L Blood Pressure Location Lt brachial Position Sitting Pulse 78 Intake Visit Reasons: 6 month follow up Intake Note: Rose Marie presents in the office as a 6 month follow up, CC: She states that everything seems to be the same and nothing is changed. Allergies oxycodone [From PERCOCET] Allergy (Intermediate, Verified 12/28/23 10:42) HIVES Sulfa (Sulfonamide Antibiotics) [SULFA (SULFONAMIDE ANTIBIOTICS)] Allergy (Intermediate, Verified 12/28/23 10:42) HIVES diatrizoate meglumine [Gastrografin] Allergy (Unknown, Verified 12/28/23 10:42) red rash HPI HPI 6 month follow up: Details: 57 yr old f here for f/u RECAP She had seen Oralia and Dr Mahan before seeing me ISSUES: 1/ constipation 2/ GERD-on pantoprazole 3/ abn LFT - US 08/2018-- normal liver echogenicity, and elastography-alk phos isoenzyme pos for macro form of alk phos, GGT mildly elevated 4/ FH of CRC, also personal and family hx of polyps. She had MRe with transmural enhancement of loop of small bowel, fecal lactoferrin was neg Colonoscopy 07/30/21: polyps internal hemorrhoids mild ileitis BX with tubular adenoma, other bx were neg EGD: 01/2022 Findings: Larynx:normal Esophagus: GE junction at 38 cm, diaphragm hiatus at 38 cm, partial schatzki ring, bx taken from GEJ and random esophagus Stomach: Patchy gastric erythema, altered anatomy with L shaped stomach with hx of sleeve gastrectomy. Biopsies were obtained. Grade 2 flap valve on retroflexed examination of the cardia. Duodenum: Normal bulb and descending duodenum, bx taken Intervention: Biopsies as noted above Impression/Findings: partial schatzki gastritis MRe: 06/2022: no active inflammation She did see Cardiology, and had stent placed after diagnostic cath, ECHO with she had bx of lung and LN due to sx and path is non diagnostic PET scan 01/23/23 physiological uptake in Gi tract, uptake in lungs--left pleura US with steatosis INTERIM: She is on lyrica for lung pain, she has the odd time with pill getting stuck she still feels apriso she is concerned about abn bowel habits with bloating, for several months now no blood in stool she has mucous LA, she has tried fiber which might be helping TSH is low, fT4 normal --seeing PCP abt this she takes morphine 3 times/week EXAM: GENERAL: The patient is well developed and nontoxic. VITAL SIGNS:see workflow HEENT: Nonicteric sclerae, PERRLA, EOMI. Oropharynx clear. Moist mucous membranes. Conjunctivae appear well perfused. No thyroid mass. CHEST: Chest wall is nontender. HEART: Regular rate and rhythm without murmurs. LUNGS: Clear to auscultation bilaterally. ABDOMEN: Soft, positive bowel sounds, nontender, no organomegaly.no flank tenderness SKIN: No rash, no excessive bruising, petechiae, or purpura. NEUROLOGIC: Cranial nerves II-XII intact without motor/sensory deficit. A/P: 1/ Abn LFt, raised lak phos with ps macro form, steatosis as well 2/ GERD--controlled 3/ abn bowel habit, long standing, Imaging and colonoscopy with enteritis, ileitis--on pentasa with good results 4/ hx of polyps 5/ abn shaped stomach from sleeve gastrectomy--possible dysphagia from GERD 6/ abn TFT PLAN: 1/ cont with apriso 2/ recheck LFT< if still high stop urosdiol 3. EGD with dilation and colonoscopy with suprep and bx due to her swallowing issues and abn bowel habit 4/ check tsh with f T4 and f T3 rT3, ?sick euthyroid due to meds, also check prolactin and cortisol PFSH Medical History History of mantle field radiation therapy (~1992) Environmental allergies History of shingles CAD (coronary artery disease) Stented coronary artery (~2022) Hyperlipidemia Obesity Mitral stenosis Anxiety and depression Tubular adenoma of colon History of Hodgkin's lymphoma (~1992) Radiation-induced heart disease Aortic stenosis Asthma Hypothyroid Hepatic steatosis GERD (gastroesophageal reflux disease) Herpes Surgical History History of lymph node excision (03/12/23) History of lung biopsy (02/11/23) History of repair of hiatal hernia (~2017) History of thoracentesis (~2018) History of ankle surgery History of section History of colonoscopy History of heart artery stent (~2022) History of arthroscopy of right shoulder History of sleeve gastrectomy (~2018) History of esophagogastroduodenoscopy (EGD) History of cholecystectomy Family History Mother Colon cancer Father Hypertension Prostate cancer Son Diabetes Daughter Autism Social History Household Members: Spouse and Family Housing: House Are you a primary assistant child care teacher to a significant other at home: No Do you presently have visiting nurse or other home services: No Alcohol intake: current Alcohol intake frequency: holidays/special occasions only Patient Tobacco Use Status: Never used Tobacco e-Cigarette/Vaping Use: Never Used Substance Use Type: Marijuana service: No 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: employed 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 Vital Signs: Last Vital Signs Pulse 78 12/28/23 10:43 BP 116/55 L 12/28/23 10:43 BMI result Body Mass Index 38.4 Assessment & Plan Assessment & Plan (1) Abnormal LFTs: Code(s): R94.5 - Abnormal results of liver function studies Category: Medical Plan: see above (2) Dysphagia: Code(s): R13.10 - Dysphagia, unspecified Category: Medical Plan: see above (3) Abnormal thyroid function test: Code(s): R94.6 - Abnormal results of thyroid function studies Category: Medical Plan: see above Orders: Orders TSH reflex Free T4 Today R94.6 - Abnormal results of thyroid function studies Triiodothyronine T3 Free Today R94.6 - Abnormal results of thyroid function studies Prolactin Today R94.6 - Abnormal results of thyroid function studies Cortisol Random Today R94.6 - Abnormal results of thyroid function studies Comprehensive Met. Panel Today K75.81 - Nonalcoholic steatohepatitis ([place]EN[place]AMIN), R13.10 - Dysphagia, unspecified, R94.5 - Abnormal results of liver function studies Complete Blood Count Auto Diff Today R13.10 - Dysphagia, unspecified, R94.5 - Abnormal results of liver function studies Triiodothyronine T3 Reverse Today R94.6 - Abnormal results of thyroid function studies Cortisol, Free Today R94.6 - Abnormal results of thyroid function studies Medications: New sodium,potassium,mag sulfates 17.5-3.13-1.6 gram (Suprep Bowel Prep Kit) DILUTE; drink 1/2 at 6-8 pm and half at 11 PM- 1AM 354 mL 0RF Coding Level of Care Code Est Pt Level 4 (79022) Diagnoses Abnormal LFTs R94.5 Dysphagia R13.10 Abnormal thyroid function test R94.6
[2023-12-28 10:43] VITALS: BP 116/55; PULSE 78; BMI 38.4
== END 2023-12-28 11:28 | disposition home or self-care (01) ==
PROVIDERS: PCP Internal Medicine; Visit Provider Internal Medicine Gastroenterology
DX: R94.5 Abnormal results of liver function studies (principal); R13.10 Dysphagia, unspecified; R94.6 Abnormal results of thyroid function studies
CPT/HCPCS: 99214

== ENCOUNTER → 2023-12-28 10:33 | Outpatient (BNVA) | payer BC, SELFPAY ==
[2023-07-28 10:56] VITALS: BP 100/50; BP 114/58; BP 156/54; BMI 40.1
== END ==
PROVIDERS: PCP Internal Medicine; Visit Provider Internal Medicine Gastroenterology

== ENCOUNTER 2023-12-29 09:44 | Outpatient (REF) | payer BC, SELFPAY ==
[2023-07-28 10:56] VITALS: BP 100/50; BP 114/58; BP 156/54; BMI 40.1
[2023-12-29 13:17] LABS: MANUAL DIFF FLAG NO
[2023-12-29 13:29] LABS: Basophils Absolute Auto 0.1 X10*3/uL (0.0-0.2); Basophils Percent Auto 0.7 % (0-2); Eosinophils Absolute Auto 0.2 X10*3/uL (0.0-0.4); Eosinophils Percent Auto 2.3 % (0-4); Hematocrit 35.2 % (37.0-47.0); Hemoglobin 11.6 g/dl (12.0-16.0); Imm Gran Abs Auto 0.02 X10*3/uL (0.00-0.03); Imm Gran Pct Auto 0.2 % (0.0-0.4); Lymphocytes Absolute Auto 2.3 X10*3/uL (1.2-4.9); Lymphocytes Percent Auto 24.8 % (20-40); Mean Corpuscular Hemoglobin 29.1 pg (27.0-33.0); Mean Corpuscular Volume 88.4 fL (80.0-98.0); Monocytes Absolute Auto 0.9 X10*3/uL (0.1-1.2); Monocytes Percent Auto 9.4 % (2-11); Neutrophils Absolute Auto 5.8 x10*3/uL (2.0-8.3); Neutrophils Percent Auto 62.6 % (45-73); Platelet Count 250 X10*3/uL (160-400); Red Blood Count 3.98 X10*6/uL (4.20-5.50); Red Cell Distribution Width 14.1 % (11.0-16.0); White Blood Count 9.2 X10*3/uL (4.8-10.8)
[2023-12-29 13:55] LABS: Alanine Aminotransferase 16 U/L (0-31); Albumin Level 3.9 g/dL (3.5-5.0); Alkaline Phosphatase 139 U/L (39-117); Anion Gap 14 (12-20); Aspartate Amino Transferase 33 U/L (5-31); Bilirubin Total 0.8 mg/dL (0.0-1.0); Blood Urea Nitrogen 13 mg/dL (9-16); Calcium 9.6 mg/dL (8.4-10.2); Carbon Dioxide 24 mmol/L (22-29); Chloride 108 mmol/L (96-108); Estimated Glomerular Filt Rate > 60; Glucose Random 122 mg/dL (60-115); Sodium 142 mmol/L (135-145); TSH reflex Free T4 0.35 uIU/mL (0.32-4.0)
[2023-12-29 13:59] LABS: Cortisol Random 15.2 ug/dL
[2023-12-31 06:08] LABS: Prolactin 9.7 ng/mL
[2023-12-31 07:24] LABS: Triiodothyronine T3 Free 2.4 pg/mL (2.3-4.2)
[2024-01-07 02:28] LABS: Cortisol, Free 0.67 mcg/dL
[2024-01-07 15:43] LABS: Triiodothyronine T3 Reverse 22 ng/dL (8-25)
== END 2023-12-29 09:45 | disposition home or self-care (01) ==
LOC: HO.HKASLDS 09:44
PROVIDERS: Visit Provider Internal Medicine Gastroenterology
DX: K75.81 Nonalcoholic steatohepatitis (NASH) (principal); R13.10 Dysphagia, unspecified; R94.5 Abnormal results of liver function studies; R94.6 Abnormal results of thyroid function studies
CPT/HCPCS: 36415; 80053; 82530; 82533; 84146; 84443; 84481; 84482; 85025

== ENCOUNTER 2024-01-01 09:10 | Outpatient (AMB) | payer BC, SELFPAY ==
[2023-07-28 10:56] VITALS: BP 100/50; BP 114/58; BP 156/54; BMI 40.1
[2024-01-01 09:19] VITALS: BP 130/61; PULSE 69; RESP 15; O2SAT 100; BMI 38.4
--- NOTE | 2024-01-01 09:19 | A.OFFVIS_ITS ---
Vital Signs 01/01/24 09:19 Height 5 ft 2 in Weight 210 lb BMI 38.4 BP 130/61 Blood Pressure Location Lt brachial Position Sitting Respiration 15 Pulse 69 Pulse Source Pulse Oximeter Pulse Oximetry (%) 100 Oxygen Delivery Method Room Air Intake Visit Reasons: SCS/Procedure Discussion Allergies oxycodone [From PERCOCET] Allergy (Intermediate, Verified 01/01/24 09:21) HIVES Sulfa (Sulfonamide Antibiotics) [SULFA (SULFONAMIDE ANTIBIOTICS)] Allergy (Intermediate, Verified 01/01/24 09:21) HIVES diatrizoate meglumine [Gastrografin] Allergy (Unknown, Verified 01/01/24 09:21) red rash Medication List - Last Reconciled 01/01/24 by Christiane Gill LPN albuterol sulfate 90 mcg/actuation 2 puffs inhalation DAILY PRN aspirin (Ecotrin Low Strength) 81 mg PO DAILY atorvastatin 40 mg PO DAILY 90 days cane As directed cholecalciferol (vitamin D3) 50 mcg PO DAILY orprqggcogq-nvnfnuvvn-gyklzgws 100-62.5-25 mcg (Trelegy Ellipta) 1 inh inhalation DAILY 90 days ipratropium-albuterol 0.5 mg-3 mg(2.5 mg base)/3 mL 3 mL inhalation Q6-8H PRN levothyroxine (Levoxyl) 125 mcg PO DAILY lidocaine 5% 1 patch topical DAILY lorazepam 0.5 mg PO BID PRN meclizine 12.5 mg PO DAILY PRN mesalamine ER 1.5 grams (4 x 0.375 gram) PO DAILY morphine 15 mg PO BID PRN nortriptyline 10 mg PO BEDTIME pantoprazole 40 mg PO DAILY pregabalin 50 mg orally 5 times per day; sertraline 125 mg PO DAILY sertraline 25 mg PO DAILY sodium,potassium,mag sulfates 17.5-3.13-1.6 gram (Suprep Bowel Prep Kit) DILUTE; drink 1/2 at 6-8 pm and half at 11 PM- 1AM ubrogepant (Ubrelvy) 50 mg PO DAILY PRN ursodiol 500 mg PO BID walker (Ultra-Light Rollator misc) As directed HPI HPI SCS/Procedure Discussion: Details: 58-year-old female who presents today to the office for a discussion of spinal cord stimulator procedure. She states that she thought about both discussed procedures and wants to proceed with the permanent option (spinal cord stimulator). She is scheduled for a repeat chest CT on 01/19/2024. She is amenable to proceed with a spinal cord stimulator.?She has cardiac stent placed in March 2022. She has been taking baby aspirin. Past procedures 08/19/23: T6-T7-T8 Intercoastal nerve block: 70% relief for three days. 12/23/2023: Left T6-T7-T8 Intercoastal nerve block: % relief. FORMERLY [facility], [facility]–1983 Medical History (Updated 12/28/23 @ 11:17 by Robbie Chowdhury MD) History of mantle field radiation therapy (~1992) Environmental allergies History of shingles CAD (coronary artery disease) Stented coronary artery (~2022) Hyperlipidemia Obesity Mitral stenosis Anxiety and depression Tubular adenoma of colon History of Hodgkin's lymphoma (~1992) Radiation-induced heart disease Aortic stenosis Asthma Hypothyroid Hepatic steatosis GERD (gastroesophageal reflux disease) Herpes Surgical History (Updated 01/19/24 @ 15:25 by Ceci Rivera RN) History of lung surgery History of lymph node excision (03/12/23) History of lung biopsy (02/11/23) History of repair of hiatal hernia (~2017) History of thoracentesis (~2018) History of ankle surgery History of section History of colonoscopy History of heart artery stent (~2022) History of arthroscopy of right shoulder History of sleeve gastrectomy (~2017) History of esophagogastroduodenoscopy (EGD) History of cholecystectomy Family History Mother Colon cancer Father Hypertension Prostate cancer Son Diabetes Daughter Autism Social History Household Members: Spouse and Family Housing: House Are you a primary vocational childcare teacher to a significant other at home: No Do you presently have visiting nurse or other home services: No Alcohol intake: current Alcohol intake frequency: holidays/special occasions only Patient Tobacco Use Status: Never used Tobacco e-Cigarette/Vaping Use: Never Used Substance Use Type: Marijuana service: No 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: employed 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 Alert and oriented. Mood and affect appropriate. Follows and participates in conversation appropriately. Respiratory effort is unlabored. Able to transition from sit to stand unassisted. Ambulates with bilaterally normal heel strike and toe off. Results Reviewed Results Reviewed: No imaging is available for review. Assessment & Plan Assessment & Plan (1) Post-thoracotomy pain: Code(s): G89.12 - Acute post-thoracotomy pain Category: Medical (2) Intercostal neuralgia: Code(s): G58.8 - Other specified mononeuropathies Category: Medical Plan We will plan for a [employer] 16 contact lead stacked on the left side. Discussed the risks and benefits of the procedure with the patient in detail. All questions were answered. The patient is on board with the plan. A brochure of [employer] spinal cord stimulators was provided to the patient. A contact detail of a local member services representative was provided to the patient. Justification for interventional therapy: ? Patient with average pain > 6/10 ? Patient has exhausted conservative therapy. ? Patient unable to tolerate physical therapy due to pain. ? Previous injection provided >50% relief x > 2 weeks. . Patient has a good understanding of their pain condition and has appropriate mental and social support Scribed for Dr. Carrillo by Ishmael Rick, medical sales representative, on 01/01/2024. I, Dr. Carrillo, have personally reviewed and agree with the information entered by the scribe. Coding Level of Care Code Est Pt Level 3 (75648) Diagnoses Post-thoracotomy pain G89.12 Intercostal neuralgia G58.8
== END 2024-01-01 09:39 | disposition home or self-care (01) ==
PROVIDERS: PCP Internal Medicine; Visit Provider Internal Medicine
DX: G89.12 Acute post-thoracotomy pain (principal); G58.8 Other specified mononeuropathies
CPT/HCPCS: 99213

== ENCOUNTER → 2024-01-01 09:10 | Outpatient (BNVA) | payer BC, SELFPAY ==
[2023-07-28 10:56] VITALS: BP 100/50; BP 114/58; BP 156/54; BMI 40.1
== END ==
PROVIDERS: PCP Internal Medicine; Visit Provider Internal Medicine

== ENCOUNTER 2024-01-19 12:49 | Outpatient (REF) | payer BC, SELFPAY ==
[2023-07-28 10:56] VITALS: BP 100/50; BP 114/58; BP 156/54; BMI 40.1
--- NOTE | ~2024-01-19 | CT_ITS ---
EXAMINATION: CT CHEST WITHOUT CONTRAST CLINICAL INFORMATION: pulmonary nodule COMPARISON: CT chest 07/03/2023, PET CT 01/13/2023 TECHNIQUE: Multidetector volumetric CT imaging of the chest was done. Axial MIP volume rendering provided. Sagittal and coronal reformatted images were obtained. This CT examination was performed using dose optimization techniques as appropriate, variously including the following: *Automated exposure control *Adjustment of mA and/or kV according to patient size (this includes techniques or standardized protocols for targeted exams where dose is matched to indication/reason for exam; i.e. 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 Mild interval increase in thickness of the FDG avid nodularity along the superior left mediastinal pleura (for example measuring up to 1.1 cm on series #5 axial image 89, compared to 1 cm previously), correlate with biopsy results from 02/11/2023. Pleural nodularity tracks along the upper lateral pleura as well as posteriorly, including the lateral aspect of the entire length major fissure. No new pulmonary nodule. Right lung is clear. No pleural effusion. Central airways are clear. MEDIASTINUM: Normal size heart without pericardial effusion. Valve calcifications again seen. No mediastinal or hilar lymphadenopathy. Normal thyroid. CORONARY ARTERY CALCIFICATION: Mild. AXILLA: No lymphadenopathy. UPPER ABDOMEN: Status post gastric sleeve and cholecystectomy. OSSEOUS STRUCTURES: No acute or suspicious osseous abnormality. Chronic displaced posterior left sixth rib fracture, as before. There is continued interval healing of the left posterior seventh and eighth rib fractures. CT/CT chest wo IV con IMPRESSION: 1. Mild interval increase in thickness of the FDG avid nodularity along the superior left mediastinal pleura, correlate with biopsy results from 02/11/2023. No new pulmonary nodule. 2. 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 Fleischner guidelines were followed. Electronically signed by: Jacquie Rojas DO 01/19/2024 03:29 PM EST
== END 2024-01-19 12:50 | disposition home or self-care (01) ==
LOC: HO.CT 12:49
PROVIDERS: PCP Internal Medicine; Visit Provider Nurse Practitioner Family
DX: R91.8 Other nonspecific abnormal finding of lung field (principal); R91.1 Solitary pulmonary nodule; J92.9 Pleural plaque without asbestos
CPT/HCPCS: 71250

== ENCOUNTER 2024-01-22 10:40 | Day surgery (SDC) | payer BC, SELFPAY ==
[2023-07-28 10:56] VITALS: BP 100/50; BP 114/58; BP 156/54; BMI 40.1
[2024-01-19 15:33] VITALS: BMI 38.4
--- NOTE | 2024-01-21 09:55 | HO.ANESPROP2 ---
Documented by User: Kayla Amaya NP 01/21/24 10:04 HPI - Anesthesia Eval Consult details Narrative: 58yo F for Upper Endoscopy and Colonoscopy Follows [facility] [place] Cardiology - stable at 08/2023 office visit CAD s/p stent 08/2022 Pericarditis 11/2022 tx'd with colchicine - resolved h/o hodgkin's lymphoma in her 20s s/p mantle radiation s/p PRASHANT wedge resection 03/2023 PMF Active Problems Active Problems: All Active Problems Abnormal thyroid function test (Acute) Post-thoracotomy pain (Acute) Current chronic use of inhaled steroid (Acute) Intercostal neuralgia (Acute) Dysphagia (Acute) Hospital discharge follow-up (Acute) S/P thoracotomy (Acute) Anemia (Acute) Lymphadenopathy (Acute) Abnormal radiologic finding of lung field (Acute) Pulmonary nodule (Acute) Pericarditis (Acute) Abnormal TSH (Acute) Chest discomfort (Acute) Chest pain (Acute) Pleural thickening (Acute) S/P cardiac catheterization (Acute ~2022) Ileitis (Acute) Tarsal tunnel syndrome, left lower limb (Acute) Low vitamin B12 level (Acute) Abnormal LFTs (Acute) History of Hodgkin's lymphoma (Acute ~1992) History of mantle field radiation therapy (Acute ~1992) Radiation-induced heart disease (Acute) CAD (coronary artery disease) (Acute) Stented coronary artery (Acute ~2022) Mitral stenosis (Acute) Aortic stenosis (Acute) Hyperlipidemia (Acute) Asthma (Acute) Environmental allergies (Acute) Hypothyroid (Acute) Tubular adenoma of colon (Acute) Anxiety and depression (Acute) Obesity (Acute) Past Medical History Medical History History of mantle field radiation therapy (~1992) Environmental allergies History of shingles CAD (coronary artery disease) Stented coronary artery (~2022) Hyperlipidemia Obesity Mitral stenosis Anxiety and depression Tubular adenoma of colon History of Hodgkin's lymphoma (~1992) Radiation-induced heart disease Aortic stenosis Asthma Hypothyroid Hepatic steatosis GERD (gastroesophageal reflux disease) Herpes Family History Family History Mother Colon cancer Father Hypertension Prostate cancer Son Diabetes Daughter Autism Family history of problems with anesthesia: No Surgical History Surgical History History of lung surgery History of lymph node excision (03/12/23) History of lung biopsy (02/11/23) History of repair of hiatal hernia (~2018) History of thoracentesis (~2018) History of ankle surgery History of section History of colonoscopy History of heart artery stent (~2022) History of arthroscopy of right shoulder History of sleeve gastrectomy (~2017) History of esophagogastroduodenoscopy (EGD) History of cholecystectomy History of Problems with Anesthesia: No Social History Social History Household Members: Spouse and Family Housing: House Are you a primary janitor caretaker to a significant other at home: No Do you presently have visiting nurse or other home services: No Alcohol intake: current Alcohol intake frequency: holidays/special occasions only Patient Tobacco Use Status: Never used Tobacco e-Cigarette/Vaping Use: Never Used Substance Use Type: Marijuana Substance Use Frequency: Occasionally Have you been hit, kicked, punched, or otherwise hurt by someone within the past year? 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 Allergy/AdvReac Type Severity Reaction Status Date / Time oxycodone [From PERCOCET] Allergy Intermediate HIVES Verified 01/01/24 09:21 Sulfa (Sulfonamide Allergy Intermediate HIVES Verified 01/01/24 09:21 Antibiotics) [SULFA (SULFONAMIDE ANTIBIOTICS)] diatrizoate meglumine Allergy Unknown red rash Verified 01/01/24 09:21 [Gastrografin] Home Medications ?Medication ?Instructions ?Recorded ?Confirmed ?Last Taken ?Type morphine 15 mg immediate release 15 mg PO BID PRN Pain 02/08/20 01/19/24 Unknown History tablet sertraline 100 mg tablet 125 mg PO DAILY 02/08/20 01/19/24 Unknown History lorazepam 0.5 mg tablet 0.5 mg PO BID PRN anxiety 08/19/21 01/19/24 Unknown History nortriptyline 10 mg capsule 10 mg PO BEDTIME 07/08/22 01/19/24 Unknown History ubrogepant 50 mg tablet (Ubrelvy) 50 mg PO DAILY PRN headaches 08/25/22 01/19/24 Unknown History meclizine 12.5 mg tablet 12.5 mg PO DAILY PRN Vertigo 09/04/22 01/19/24 Unknown History cholecalciferol (vitamin D3) 50 50 mcg PO DAILY 12/01/22 01/19/24 Unknown History mcg (2,000 unit) capsule levothyroxine 125 mcg tablet 125 mcg PO DAILY 03/06/23 01/19/24 Unknown History (Levoxyl) sertraline 25 mg tablet 25 mg PO DAILY 03/23/23 01/19/24 Unknown History Exam Height,Weight and Vital Signs: Height 5 ft 2 in Weight 95.254 kg Pertinent Lab Results Pertinent Lab Results: Laboratory Tests 12/29/23 10:09 WBC 9.2 Hgb 11.6 L Hct 35.2 L D Plt Count 250 Sodium 142 Potassium 4.0 Chloride 108 Carbon Dioxide 24 BUN 13 Creatinine 0.79 Narrative Narrative: ECHO 05/2023 Conclusions: - The left ventricular systolic function is normal. The visually estimated ejection fraction is between 65-70%. - There is moderate calcification of the aortic valve. There is mild to moderate aortic valve stenosis. There is mild aortic valve regurgitation. - There is severe mitral annular calcification. There is moderate mitral valve stenosis. EKG 12/2022 Vent. Rate : 100 BPM Atrial Rate : 100 BPM P-R Int : 140 ms QRS Dur : 094 ms QT Int : 328 ms P-R-T Axes : 037 -33 051 degrees QTc Int : 423 ms Normal sinus rhythm Left anterior fascicular block Left ventricular hypertrophy with repolarization abnormality ( R in aVL , [place] product , [place] ) Abnormal ECG When compared with ECG of 07-NOV-2022 14:53, Heart rate has increased Assessment and Plan Assessment Anesthesia Assessment: Chart Reviewed Final Anesthetic Review Family History of Problems with Anesthesia: No History of Problems with Anesthesia: No Documented by User: Vanesa Moctezuma MD 01/22/24 12:39 [facility] Past Medical History Medical History History of mantle field radiation therapy (~1992) Environmental allergies History of shingles CAD (coronary artery disease) Stented coronary artery (~2022) Hyperlipidemia Obesity Mitral stenosis Anxiety and depression Tubular adenoma of colon History of Hodgkin's lymphoma (~1992) Radiation-induced heart disease Aortic stenosis Asthma Hypothyroid Hepatic steatosis GERD (gastroesophageal reflux disease) Herpes Family History Family History Mother Colon cancer Father Hypertension Prostate cancer Son Diabetes Daughter Autism Family history of problems with anesthesia: No Surgical History Surgical History History of lung surgery History of lymph node excision (03/12/23) History of lung biopsy (02/11/23) History of repair of hiatal hernia (~2017) History of thoracentesis (~2018) History of ankle surgery History of section History of colonoscopy History of heart artery stent (~2022) History of arthroscopy of right shoulder History of sleeve gastrectomy (~2017) History of esophagogastroduodenoscopy (EGD) History of cholecystectomy History of Problems with Anesthesia: No Social History Social History Household Members: Spouse and Family Housing: House Are you a primary janitor caretaker to a significant other at home: No Do you presently have visiting nurse or other home services: No Alcohol intake: current Alcohol intake frequency: holidays/special occasions only Patient Tobacco Use Status: Never used Tobacco e-Cigarette/Vaping Use: Never Used Substance Use Type: Marijuana Substance Use Frequency: Occasionally Have you been hit, kicked, punched, or otherwise hurt by someone within the past year? 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 Allergy/AdvReac Type Severity Reaction Status Date / Time oxycodone [From PERCOCET] Allergy Intermediate HIVES Verified 01/01/24 09:21 Sulfa (Sulfonamide Allergy Intermediate HIVES Verified 01/01/24 09:21 Antibiotics) [SULFA (SULFONAMIDE ANTIBIOTICS)] diatrizoate meglumine Allergy Unknown red rash Verified 01/01/24 09:21 [Gastrografin] Home Medications ?Medication ?Instructions ?Recorded ?Confirmed ?Last Taken ?Type morphine 15 mg immediate release 15 mg PO BID PRN Pain 02/08/20 01/19/24 Unknown History tablet sertraline 100 mg tablet 125 mg PO DAILY 02/08/20 01/19/24 Unknown History lorazepam 0.5 mg tablet 0.5 mg PO BID PRN anxiety 08/19/21 01/19/24 Unknown History nortriptyline 10 mg capsule 10 mg PO BEDTIME 07/08/22 01/19/24 Unknown History ubrogepant 50 mg tablet (Ubrelvy) 50 mg PO DAILY PRN headaches 08/25/22 01/19/24 Unknown History meclizine 12.5 mg tablet 12.5 mg PO DAILY PRN Vertigo 09/04/22 01/19/24 Unknown History cholecalciferol (vitamin D3) 50 50 mcg PO DAILY 12/01/22 01/19/24 Unknown History mcg (2,000 unit) capsule levothyroxine 125 mcg tablet 125 mcg PO DAILY 03/06/23 01/19/24 Unknown History (Levoxyl) sertraline 25 mg tablet 25 mg PO DAILY 03/23/23 01/19/24 Unknown History Exam Height,Weight and Vital Signs: Height 5 ft 2 in Weight 95.254 kg Vital Signs Temp Pulse Resp BP Pulse Ox O2 Del Method 01/22/24 11:58 97.9 F 79 18 117/57 L 96 Room Air Airway Mallampati Class: II TM Dist: >3cm Neck ROM: Full Loose/Missing/Broken Teeth: Yes (Chipped top front tooth. Missing molars right and left bottom) Heart: RRR + systolic murmur Lungs: CTAB Assessment and Plan Assessment Anesthesia Assessment: Anesthesia Plan Discussed and Chart Reviewed Final Anesthetic Review Family History of Problems with Anesthesia: No History of Problems with Anesthesia: No NPO: Yes ASA Class: III Final Preanesthetic Review: No Changes in Pt Med Stat, Meds/Allgs Chart Reviewed, Consent Obtained/Reviewed and Anes Risks/Benef Reviewed Patient Risk: Intermediate Procedure Risk: Low Assessment/Block/Sedation in SS: Assess/Block/Sedation-SS Anesthetic Plan Anesthetic Plan: TIVA Disposition: Standard PACU
[2024-01-22 11:34] VITALS: BMI 38.8
[2024-01-22] MEDS: Lactated Ringers 1,000 ML 100 ML IVCONT (11:42)
[2024-01-22 11:58] VITALS: BP 117/57; PULSE 79; RESP 18; TEMP 36.6; O2SAT 96
--- NOTE | 2024-01-22 13:22 | MHC.SHP ---
Pre-Procedural Eval Section A - 24 Hr Update-Section A only Date of Service: 01/22/24 Section B - Complete if H&P > 30 days Chief Complaint: dysphagia,abnormal liver function, Relevant Family History (Specify if Yes): No Relevant Social History: None Present Medications: None Medical History: Significant History (History of mantle field radiation therapy (~1992) Environmental allergies History of shingles CAD (coronary artery disease) Stented coronary artery (~2022) Hyperlipidemia Obesity Mitral stenosis Anxiety and depression Tubular adenoma of colon History of Hodgkin's lymphoma (~1992) Radiation-induced h) History of Previous Operations: Relevant previous surgery/procedure and date(s) (History of lung surgery History of lymph node excision (03/12/23) History of lung biopsy (02/11/23) History of repair of hiatal hernia (~2017) History of thoracentesis (~2018) History of ankle surgery History of section History of colonoscopy History of heart artery stent (~2022) History of) Allergies: Allergies Allergy/AdvReac Type Severity Reaction Status Date / Time oxycodone [From PERCOCET] Allergy Intermediate HIVES Verified 01/01/24 09:21 Sulfa (Sulfonamide Allergy Intermediate HIVES Verified 01/01/24 09:21 Antibiotics) [SULFA (SULFONAMIDE ANTIBIOTICS)] diatrizoate meglumine Allergy Unknown red rash Verified 01/01/24 09:21 [Gastrografin] Review of Systems Sugical H&P ROS: Negative: Constitution, Cardiovascular, Respiratory, Neurological, Psychiatric, Hem-Onc, Allergic/Immunologic, Gastrointestinal, Genitourinary, Musculoskeletal, Integumentary, Endocrine and Eyes/Ears/Nose/Throat Exam Surgical H&P Exam: Normal: HEENT, Normal: Heart, Normal: Lungs, Normal: Extremities, Normal: Abdomen, Normal: Skin and Normal: Neurological Plan Diagnosis/Plan: Unchanged I have reviewed the history and physical and performed a pertinent physical examination on my patient. No changes have occurred unless specified. Time Spent With Patient Time: Total time managing care of this patient today ____ minutes.
--- NOTE | 2024-01-22 14:13 | P.OPN-COLO_ITS ---
Colonoscopy Operative Note Operative Note Date of Service: 01/22/24 Narrative: Operative Information Procedure Description: EGD, Colonoscopy Indication: dysphagia and abn bowel habits Anesthesia: MAC FLEXIBLE TRANSORAL UPPER GASTROINTESTINAL ENDOSCOPY AND COLONOSCOPY PROCEDURE NOTE UPPER ENDOSCOPY Consent: Indications for the procedure and potential complications of bleeding, perforation, reaction to medications and missed diagnosis were discussed with the patient and informed consent was obtained. Instrument: Olympus GIF H 190 J mid size upper endoscope Monitoring: Vital signs and clinical assessment, continuous EKG monitoring, Pulse oximetry, Carbon Dioxide monitoring and blood pressure monitoring were done throughout the procedure. Procedure: The patient was placed in the left lateral decubitis position and pre-procedure medications were administered and a bite block was placed. The endoscope was inserted into the mouth and advanced under direct vision to the third part of duodenum. A careful inspection was made as the upper endoscope was withdrawn including a retroflexed examination of the proximal stomach; Findings and interventions are described below. Findings: Larynx:normal Esophagus: GE junction at 38 cm, diaphragm hiatus at 38 cm, schatzki ring noted, bx taken from GEJ and distal,proximal esophagus--balloon dilation done to 18 mm at UES and 20 mm LES- no tears seen. some small adherent white plaques consistent with safia. Stomach: Patchy gastric erythema, altered anatomy with L shaped stomach with hx of sleeve gastrectomy. Biopsies were obtained. Grade 2 flap valve on retroflexed examination of the cardia. Duodenum: Normal bulb and descending duodenum, bx taken Intervention: Biopsies as noted above, balloon dilation COLONOSCOPY Instrument: Olympus variable stiffness pediatric scope 190L Colonoscopy Monitoring: Vital signs and clinical assessment, continuous EKG monitoring, Pulse oximetry, Carbon Dioxide monitoring and blood pressure monitoring were done throughout the procedure. Colon withdrawal time was 12 minutes. Procedure: The patient was placed in the left lateral decubitis position and pre-procedure medications were administered. After a digital rectal examination of the ano-rectum, the video colonoscope was inserted into the rectum and advanced through the colon to the cecum/TI. The colonoscope was slowly withdrawn in a retrograde panoramic fashion and the colon mucosa was carefully examined including a retroflexed view of the rectum. Findings and interventions are described below. Procedure Difficulty:moderate Findings: Terminal Ileum-normal, bx taken Random colon bx taken Cecum:normal Ascending Colon: normal Transverse Colon -normal Descending Colon:normal Sigmoid Colon: normal Rectum: Retroflexion with small internal hemorrhoids, grade I Anorectum - normal Colon preparation: [place] Bowel Preparation Scale Right colon; 1-2 Transverse colon: 2 Left colon; 2 (0 = Unprepared colon segment with mucosa not seen due to solid stool that cannot be cleared. 1 = Portion of mucosa of the colon segment seen, but other areas of the colon segment not well seen due to staining, residual stool and/or opaque liquid. 2 = Minor amount of residual staining, small fragments of stool and/or opaque liquid, but mucosa of colon segment seen well. 3 = Entire mucosa of colon segment seen well with no residual staining, small fragments of stool or opaque liquid) Impression and Post Procedure Diagnosis: Endoscopy Findings: schatzki gastritis Colonoscopy Findings: internal hemorrhoids Plan: Await Pathology results Repeat Colonoscopy in 2-3 years due to areas of fair prep or earlier if clinically indicated High fiber diet leaflet avoid straining at stool, epsom salts and sitz bath, anusol supps or cream GERD precautions fluconazole for 3 weeks Above findings were reviewed with the patient and relevant handouts were provided if indicated.
[2024-01-22 14:21] VITALS: BP 115/43; PULSE 77; RESP 16; TEMP 36.1; O2SAT 100
[2024-01-22 14:36] VITALS: BP 119/44; PULSE 72; RESP 20; TEMP 36.4; O2SAT 98
== END 2024-01-22 15:04 | disposition home or self-care (01) ==
PROVIDERS: PCP Internal Medicine; Visit Provider Internal Medicine Gastroenterology
PROC: (CPT 43249; principal; 2024-01-22 13:10)
DX: K22.2 Esophageal obstruction (principal); K29.70 Gastritis, unspecified, without bleeding; R13.10 Dysphagia, unspecified; K64.0 First degree hemorrhoids; R19.4 Change in bowel habit; Z86.0101 Personal history of adenomatous and serrated colon polyps; R94.5 Abnormal results of liver function studies; R94.6 Abnormal results of thyroid function studies; E78.5 Hyperlipidemia, unspecified; J45.909 Unspecified asthma, uncomplicated; D64.9 Anemia, unspecified; E53.8 Deficiency of other specified B group vitamins; Z85.71 Personal history of Hodgkin lymphoma; Z92.3 Personal history of irradiation
CPT/HCPCS: 43249; 43239; 45380; 88305; 88312; 88313; 88342; C1726; J2003; J2704

== ENCOUNTER → 2024-01-22 10:40 | Outpatient (BNV) | payer BC, SELFPAY ==
[2023-07-28 10:56] VITALS: BP 100/50; BP 114/58; BP 156/54; BMI 40.1
== END ==
PROVIDERS: PCP Internal Medicine; Visit Provider Internal Medicine Gastroenterology
DX: R19.4 Change in bowel habit (principal); K64.0 First degree hemorrhoids; K22.2 Esophageal obstruction; K29.70 Gastritis, unspecified, without bleeding; Z98.84 Bariatric surgery status
CPT/HCPCS: 43239; 43249; 45380

== ENCOUNTER 2024-02-02 13:58 | Outpatient (AMB) | payer BC, SELFPAY ==
[2023-07-28 10:56] VITALS: BP 100/50; BP 114/58; BP 156/54; BMI 40.1
--- NOTE | 2024-02-02 14:02 | A.OFFVIS_ITS ---
Vital Signs 02/02/24 14:03 Weight 223 lb 2 oz BP 116/70 Blood Pressure Location Rt brachial Position Sitting Pulse 82 Pulse Source Pulse Oximeter Pulse Oximetry (%) 98 Oxygen Delivery Method Room Air Intake Visit Reasons: pulmonary nodule Allergies oxycodone [From PERCOCET] Allergy (Intermediate, Verified 02/02/24 14:05) HIVES Sulfa (Sulfonamide Antibiotics) [SULFA (SULFONAMIDE ANTIBIOTICS)] Allergy (Intermediate, Verified 02/02/24 14:05) HIVES diatrizoate meglumine [Gastrografin] Allergy (Unknown, Verified 02/02/24 14:05) red rash HPI HPI pulmonary nodule : Details: Rose Marie is a very pleasant 58 year old female, never smoker, with underlying history of asthma, moderate aortic and mitral valve stenosis and h/o hodgkin's lymphoma in her 20s s/p mantle radiation, s/p left thoracentesis and pleurodesis, in [address] Flowers for recurrent pleural effusions, negative for malignancies. On 03/12/23 she underwent left mini thoracotomy with wedge resection of PRASHANT and excision of right groin lymph node with Dr. Washington for PET avid findings. Biopsy negative for carcinoma. She reports moderate control of respiratory symptoms on Trelegy, using Duoneb QD infrequently.She continues to report dyspnea on exertion however significantly less with current regimen. She denies cough, chest tightness or wheezing. She also notes increased nasal congestion with h/o seasonal allergies and previously on allergen immunotherapy. She denies any visits to urgent care or hospitalizations since the last visit. Today she presents to review chest CT r esults. Of note, she is currently on fluconazole for thrush found on recent endoscopy. [facility] Medical History History of mantle field radiation therapy (~1992) Environmental allergies History of shingles CAD (coronary artery disease) Stented coronary artery (~2022) Hyperlipidemia Obesity Mitral stenosis Anxiety and depression Tubular adenoma of colon History of Hodgkin's lymphoma (~1992) Radiation-induced heart disease Aortic stenosis Asthma Hypothyroid Hepatic steatosis GERD (gastroesophageal reflux disease) Herpes Surgical History History of lung surgery History of lymph node excision (03/12/23) History of lung biopsy (02/11/23) History of repair of hiatal hernia (~2017) History of thoracentesis (~2018) History of ankle surgery History of section History of colonoscopy History of heart artery stent (~2022) History of arthroscopy of right shoulder History of sleeve gastrectomy (~2017) History of esophagogastroduodenoscopy (EGD) History of cholecystectomy Family History Mother Colon cancer Father Hypertension Prostate cancer Son Diabetes Daughter Autism Social History Household Members: Spouse and Family Housing: House Are you a primary behavioral health care manager to a significant other at home: No Do you presently have visiting nurse or other home services: No Alcohol intake: current Alcohol intake frequency: holidays/special occasions only Patient Tobacco Use Status: Never used Tobacco e-Cigarette/Vaping Use: Never Used Substance Use Type: Marijuana service: No 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: employed 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 Review of Systems Const Denies chills, Denies excessive sweating, Denies fever(s), Denies headache(s) and Denies night sweats Eyes Denies dry eyes, Denies irritation and Denies itchy eyes ENT Reports Normal hearing present, Denies headache(s), Denies nasal discharge, Denies post nasal drip and Denies sore throat Card Denies chest pain with activity, Denies claudication, Denies leg edema, Denies orthopnea and Denies paroxysmal nocturnal dyspnea Resp Denies chest congestion, Denies cough, Denies excessive phlegm production, Denies pain on inspiration, Denies pain with cough, Denies stridor and Denies wheezing Musc Denies myalgias Neuro Reports Normal hearing present and Denies headache(s) Endo Denies excessive sweating Terrance/Lymph Denies lymphadenopathy Aller/Immun Denies itchy eyes, Denies seasonal rhinorrhea and Denies wheezing Physical Exam Vital Signs: Last Vital Signs Pulse 82 02/02/24 14:03 BP 116/70 02/02/24 14:03 Pulse Ox 98 02/02/24 14:03 Oxygen Delivery Method Room Air 02/02/24 14:03 Const General: cooperative, healthy appearing, comfortable, no acute distress, well developed and alert Nutritional Appearance: obese Orientation/consciousness: patient oriented x3 Limitations: no limitations HEENT Head: Yes normal to inspection, Yes normocephalic and Yes atraumatic Ears: hearing grossly normal bilaterally and external ears normal Eyes General: appearance normal, both eyes and all related structures Eyelids: Yes eyelids normal Sclerae: sclerae normal EOM: EOMs intact bilaterally Neck Neck: Yes normal visual inspection and Yes no lymphadenopathy Lymphatic: no lymphadenopathy noted Chest Chest palpation & inspection: normal inspection of the chest Resp Effort & Inspection: normal respiratory effort, able to speak in complete sentences, no audible wheezes, no cough, no stridor, not tachypneic, no tripod positioning and no use of accessory muscles Auscultation: clear to auscultation bilaterally Cardio Jugular venous distension: no JVD Rate: regular rate Rhythm: regular rhythm Skin Other: warm, dry General skin exam: no rashes or lesions noted Neuro General: patient oriented x3 Cranial nerves: Yes Normal hearing present Cognition (Neuro): normal cognition Gait exam (Neuro): Normal gait present Extrem General: Yes normal to inspection, Yes capillary refill normal, Yes no clubbing, cyanosis or edema and Yes no pedal edema Psych Appearance: grossly normal and well kempt Speech and movement: Normal speech and movement present and Clear speech present Affect: normal affect Attitude: cooperative Thought process: Normal thought process present Thought content: Normal thought content present Insight: Good insight present (Psych) Judgement: Good judgement present (Psych) Results Reviewed Results Reviewed: [address] [address] [address] Scan Report Signed Patient: Rose Marie Ross MR#: [id number] : 1965 Acct:[id number] Age/Sex: 58 / F ADM Date: 01/19/24 Loc: HO.CT Attending Dr: Nicki Desir NP Ordering Physician: Nicki Desir NP Date of Service: 01/19/24 Procedure(s): CT chest wo IV con Accession Number(s): [id number] cc: ADRIAN CORDERO MD; Nicki Desir NP~ EXAMINATION: CT CHEST WITHOUT CONTRAST CLINICAL INFORMATION: pulmonary nodule COMPARISON: CT chest 07/03/2023, PET CT 01/13/2023 TECHNIQUE: Multidetector volumetric CT imaging of the chest was done. Axial MIP volume rendering provided. Sagittal and coronal reformatted images were obtained. This CT examination was performed using dose optimization techniques as appropriate, variously including the following: *Automated exposure control *Adjustment of mA and/or kV according to patient size (this includes techniques or standardized protocols for targeted exams where dose is matched to indication/reason for exam; i.e. 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 Mild interval increase in thickness of the FDG avid nodularity along the superior left mediastinal pleura (for example measuring up to 1.1 cm on series #5 axial image 89, compared to 1 cm previously), correlate with biopsy results from 02/11/2023. Pleural nodularity tracks along the upper lateral pleura as well as posteriorly, including the lateral aspect of the entire length major fissure. No new pulmonary nodule. Right lung is clear. No pleural effusion. Central airways are clear. MEDIASTINUM: Normal size heart without pericardial effusion. Valve calcifications again seen. No mediastinal or hilar lymphadenopathy. Normal thyroid. CORONARY ARTERY CALCIFICATION: Mild. AXILLA: No lymphadenopathy. UPPER ABDOMEN: Status post gastric sleeve and cholecystectomy. OSSEOUS STRUCTURES: No acute or suspicious osseous abnormality. Chronic displaced posterior left sixth rib fracture, as before. There is continued interval healing of the left posterior seventh and eighth rib fractures. CT/CT chest wo IV con IMPRESSION: 1. Mild interval increase in thickness of the FDG avid nodularity along the superior left mediastinal pleura, correlate with biopsy results from 02/11/2023. No new pulmonary nodule. 2. 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 Fleischner guidelines were followed. Electronically signed by: Jacquie Rojas DO 01/19/2024 03:29 PM [facility] [place], [place] Dictated By: Jacquie Rojas Signed By: <Electronically signed by Jacquie Rojas in OV> 01/19/24 1529 DD/ 1259 TD/TT: 01/19/24 1314 Audio Technician: Assessment & Plan Assessment & Plan (1) Asthma: Code(s): J45.909 - Unspecified asthma, uncomplicated Category: Medical (2) History of mantle field radiation therapy: Onset Date: ~1992 Code(s): Z92.3 - Personal history of irradiation Category: Medical (3) Pleural thickening: Code(s): J92.9 - Pleural plaque without asbestos Category: Medical (4) History of Hodgkin's lymphoma: Onset Date: ~1992 Comment: (treated with radiation in 1992 - in remission) Code(s): Z85.71 - Personal history of Hodgkin lymphoma Category: Medical (5) Abnormal radiologic finding of lung field: Code(s): R91.8 - Other nonspecific abnormal finding of lung field Category: Medical (6) Intercostal neuralgia: Code(s): G58.8 - Other specified mononeuropathies Category: Medical Plan Advised to continue current regimen and encourged to use duoneb more frequently as well as trial nasal spray/antihistamine. Reviewed chest CT which revealed mild interval increase in thickness of the FDG avid nodularity along the superior left mediastinal pleura, with no noted new pulmonary nodules. Will review at multidisciplinary conference for further recommendations and notify patient. All questions were answered and patient is in agreement of plan. Will follow up to review results or sooner if needed. Orders: Orders CT chest w IV con 3 Months R91.1 - Solitary pulmonary nodule, J92.9 - Pleural plaque without asbestos Coding Level of Care Code Est Pt Level 4 (22411) Diagnoses Asthma J45.909 History of mantle field radiation therapy Z92.3 Pleural thickening J92.9 History of Hodgkin's lymphoma Z85.71 Abnormal radiologic finding of lung field R91.8 Intercostal neuralgia G58.8
[2024-02-02 14:03] VITALS: BP 116/70; PULSE 82; O2SAT 98
== END 2024-02-02 14:56 | disposition home or self-care (01) ==
PROVIDERS: PCP Internal Medicine; Visit Provider Nurse Practitioner Family
DX: J45.909 Unspecified asthma, uncomplicated (principal); Z92.3 Personal history of irradiation; J92.9 Pleural plaque without asbestos; Z85.71 Personal history of Hodgkin lymphoma; R91.8 Other nonspecific abnormal finding of lung field; G58.8 Other specified mononeuropathies
CPT/HCPCS: 99214

== ENCOUNTER → 2024-02-02 13:58 | Outpatient (BNVA) | payer BC, SELFPAY ==
[2023-07-28 10:56] VITALS: BP 100/50; BP 114/58; BP 156/54; BMI 40.1
== END ==
PROVIDERS: PCP Internal Medicine; Visit Provider Nurse Practitioner Family

== ENCOUNTER → 2024-04-22 10:45 | Outpatient (REF) | payer BC, SELFPAY ==
[2023-07-28 10:56] VITALS: BP 100/50; BP 114/58; BP 156/54; BMI 40.1
--- NOTE | 2024-04-22 10:48 | CA_ITS ---
Transthoracic Echocardiogram Patient (Last, First, Middle): Rose Marie Ross M Gender: Female Date of : 1965 Age: 58 Procedure Date: 04/22/2024 Procedure Type: Transthoracic Echocardiogram Location: OP Height: 157.48 cm Weight: 99.79 kg BSA: 1.99 m2 Heart Rate: bpm BP: 130 / 64 mmHg Furnace Feeder: TO Referring MD: Helen Olivas TEST FIXTURE DESIGNER-C Hothouse Worker: Terrance Ordonez MD Symptoms: I35.0 - Nonrheumatic aortic (valve) stenosis Study Quality: Technically Difficult/no IV access ECG Rhythm: Sinus Conclusions: - 1. Normal LV ejection fraction of 60 65% 2. Moderate to severe calcific aortic stenosis 3. Moderate calcific mitral stenosis 4. No gross pericardial effusion Findings Procedure Information Contrast agent, definity, is being given per protocol without apparent complications. Left Ventricle Normal left ventricular size, thickness, and systolic function. The visually estimated ejection fraction is between 60-65%. Diastolic function is indeterminate on the basis of available data. Right Ventricle Normal right ventricular cavity size and systolic function. Atria The left atrium is mildly dilated. There is no evidence of interatrial shunt. The right atrium is normal in size. Aortic Valve The aortic valve was not well visualized. There is moderate calcification of the aortic valve. There is moderate to severe aortic valve stenosis. There is no aortic valve regurgitation. Mitral Valve There is moderate anterior and posterior mitral leaflet thickening. There is moderate mitral annular calcification. There is no mitral valve regurgitation. There is moderate mitral valve stenosis. Pulmonic Valve The pulmonic valve was not well visualized. Tricuspid Valve Likely normal tricuspid valve structure and function. Tricuspid regurgitation envelope is inadequate for calculation of right ventricular systolic pressure. Normal right atrial pressure. Great Vessels The aorta was not well visualized. The pulmonary artery was not well visualized. Venous The inferior vena cava is normal in size and collapses greater than 50% with inspiration. Pericardium/Pleural There is no evidence of pericardial effusion. Prior Study Comparison Changes noted compared to prior study dated: 05/12/2023. aortic stenosis appears worse Measurements 2D Linear Measurements IVSd: 1.05 0.6-0.9/0.6-1.0 cm LVIDd: 4.51 3.9-5.3/4.2-5.9 cm LVIDd Index: 2.27 2.4-3.2/2.2-3.1 cm/m2 LVIDs: 3.08 2.0-3.6 cm LVPWd: 0.80 0.7-1.1 cm LA Diam: 3.60 2.7-3.8/3.0-4.0 cm LAIDs Index: 1.81 1.5-2.3 cm/m2 LV Mass: 172.02 67-162/88-224 g LV Mass Index: 86.44 43-95/49-115 g/m2 LVOT Diam: 2.00 3.0+(-)1.3 cm Mitral Valve MV VTI: 0.47 MV Pk Godwin: 1.79 MV Mn Godwin: 1.35 MV Pk Grad: 13.00 MV Mn Grad: 8.00 MV Pk E: 1.24 MV PK A: 1.35 MV Decel Time: 215.00 E/A: 0.90 E'Lateral: 5.77 E'Medial: 4.03 E/E' Med: 30.80 E/E' Lat: 21.50 PHT: 63.00 MVA PHT: 3.49 MVA Continuity: 1.56 Decel Lasalle: 5.77 Aortic Valve AoV Pk Godwin: 2.90 AoV Mn Godwin: 2.14 AoV VTI: 0.67 AoV Pk Grad: 34.00 Aov Mn Grad: 20.00 MAURO Cont.VTI: 1.09 AI Pk Godwin: 3.47 AI Lasalle: 2.57 LVOT LVOT Pk Godwin: 1.07 LVOT Mn Godwin: 0.81 LVOT VTI: 0.23 LVOT Pk Grad: 5.00 LVOT Mn Grad: 3.00 LVOT Diam: 2.00 LVOT Area: 3.14 Diastolic Function MV Pk E: 1.24 MV Pk A: 1.35 E/A: 0.90 E'Medial: 4.03 E/E' Med: 30.80 E' Laterial: 5.77 E/E' Lat: 21.50 Right Ventricle TAPSE (mm): 23.50 TVS' Godwin: 12.50 Tricuspid Valve TV Pk Godwin: 0.91 TV Mn Godwin: 0.60 TV Pk Grad: 3.00 TV Mn Grad: 2.00 RA Press: 3.00 Great Vessels Aorta Sinus of Valsalva: 2.62 2.0-3.5 cm Updated in Other Vendor System with Status of Final Terrance Ordonez MD electronically signed on 04/23/2024 1:28:49 PM with status of Final
--- OUTSIDE RECORDS SUMMARY | 2024-04-22 11:36 | XMS_ITS | Encounter Summary ---
Author Organization [facility] Address [address] [place] [address] Care Team Providers Care Workforce Consultant Name Role Phone Huong Johnson MD Primary Care Provider [phone] Encounter Details Date Type Department Care Team (Late st Contact Info) Description 04/05/[address] [facility] - Main Lab [address] [facility] [place] [address] Darien Smith MD [address] [place] [address] [address], [phone] Anemia, unspecified Social History Tobacco Use Types Packs/Day Years Used Date Smoking Tobacco: Never Smokeless Tobacco: Never Alcohol Use Standard Drinks/Week Comments Never 0 (1 standard drink = 0.6 oz pur e alcohol) Housing Instability Answer Date Recorde d Are you worried that in the next 2 months you may not have stable housing? No 03/03/2024 Food Access & Nutrition Answer Date Rec orded Do you have access to a vari ety of food including fruits and vegetables? No 03/03/2024 Health Literacy Answer Date Recorded How often do you need to hav e someone help you when you read instructions, pamphlets, or other written material from your doctor or pharmacy? Never 03/03/2024 Caregiver: How often do you need to have someone help you when you read instructions, pamphlets, or other written material from your doctor or pharmacy? Not on file 03/03/2024 Financial Risk Answer Date Recorded How hard is it for you to pa y for the very basics like food, housing, medical care, and air conditioning / heating? Not very hard 03/03/2024 Transportation Answer Date Recorded Has the lack of transportati on kept you from meetings, work, or from getting things needed for daily living? No Has the lack of transportati on kept you from medical appointments or from getting medications? No 03/03/2024 Social Isolation Answer Date Recorded How often do you feel lonely or isolated from th ose around you? Never 03/03/2024 Food Risk Answer Date Recorded Within the past 12 months we worried whether our food would run out before we got money to buy more. Never true 03/03/2024 Within the past 12 months th e food we bought just didn't last and we didn't have money to get more. Never true 03/03/2024 Dependent Care Answer Date Recorded Do you need help finding or paying for care for your loved ones. For example, child care lead teacher or elderly care for an older adult? No 03/03/2024 Education Answer Date Recorded Do you think completing more education or training, like finishing a GED, going to college, or learning a trade, would be helpful for you? No 03/03/2024 Employment and Income Answer Date Recor ded During the last four weeks, have you been actively looking for work? No 03/03/2024 Living Situation Answer Date Recorded What is your living situation? 1 05/04/2023 Interpersonal Safety Answer Date Record ed Physical Abuse 03/03/2024 Verbal Abuse 03/03/2024 Comments Unknown Sex and Gender Information Value Date Recorded Sex Assigned at Female 03/03/2024 11:33 AM EST Legal Sex Female 8:22 AM EST Gender Identity Female 03/03/2024 11:33 AM EST Sexual Orientation Straight 03/03/2024 11 :33 AM EST documented as of this encounter Plan of Treatment Not on file documented as of this encounter Visit Diagnoses Diagnosis Anemia, unspecified documented in this encounter Care Teams Workforce Consultant Relationship Specialty Start Date End Date Huong Johnson MD [address] [place] [address] PCP - General Internal Medicine 03/03/24 documented as of this encounter
--- OUTSIDE RECORDS SUMMARY | 2024-04-22 11:36 | XMS_ITS | Encounter Summary ---
Author Organization [facility] Address [address] [place] [address] Care Team Providers Care Help Desk Consultant Name Role Phone Huong Johnson MD Primary Care Provider [phone] Encounter Details Date Type Department Care Team (Late st Contact Info) Description 03/22/2024 Lab Requisition [facility] - Main Lab [address] [facility] [place] [address] Darien Smith MD [address] [place] [address] [address], [phone] Anemia, unspecified Social History Tobacco Use [...] care for your loved ones. For example, children's institution attendant or elderly care for an older adult? [...] on file documented as of this encounter Procedures Procedure Name Priority Date/Time Associated Diagnosis Comments COMPLETE BLOOD COUNT Routine 03/23/2024 4:56 AM EST Anemia, unspecified BASIC METABOLIC PANEL Routine 03/23/2024 4:56 AM EST Anemia, unspecified documented in this encounter Results * Basic metabolic panel (03/23/2024 4:56 AM EST) Sodium 141 133 - 145 mmol/L LAB CHEMISTRY METHOD 03/23/2024 10:11 AM [facility] Potassium 4.7 3.5 - 5.5 mmol/L LAB CHEMISTRY METHOD 03/23/2024 10:11 AM [facility] Chloride 109 96 - 110 mmol/L LAB CHEMISTRY METHOD 03/23/2024 10:11 AM [facility] CO2 28 21 - 32 mmol/L LAB CHEMISTRY METHOD 03/23/2024 10:11 AM [facility] Anion Gap 4 3 - 11 LAB CHEMISTRY METHOD 03/23/2024 10:11 AM [facility] Glucose 86 70 - 100 mg/dL LAB CHEMISTRY METHOD 03/23/2024 10:11 AM [facility] BUN 6 5 - 25 mg/dL LAB CHEMISTRY METHOD 03/23/2024 10:11 AM [facility] Creatinine 0.66 0.50 - 1.10 mg/dL LAB CHEMISTRY METHOD 03/23/2024 10:11 AM [facility] eGFR 103 >=60 mL/min/1. 73m2 LAB CHEMISTRY METHOD 03/23/2024 10:11 AM [facility] Comment:Calculation based on the??Chronic Kidney Disease Epidemiology Collaboration (CKD-EPI) equation refit??without adjustment for race. BUN/Creatinine Ratio 9.1 LAB CHEMISTRY METHOD 03/23/2024 10:11 AM [facility] Calcium 8.7 8.5 - 10.5 mg/dL LAB CHEMISTRY METHOD 03/23/2024 10:11 AM [facility] Blood Venous blood specimen / Unknown Venipuncture / Unknown 03/23/2024 4:56 AM EST 03/23/2024 8:44 AM EST us Darien Smith MD LAB BLOOD ORDERABLES Final Resul t [facility] [address] [place] [address], * (ABNORMAL) Complete blood count (03/23/2024 4:56 AM EST) [facility] WBC 8.2 4.8 - 10.8 K/mcL LAB HEMETOLOGY METHOD 03/23/2024 9:56 AM [facility] RBC 3.50(L) 3.80 - 4.80 M/mcL LAB HEMETOLOGY METHOD 03/23/2024 9:56 AM [facility] Hemoglobin 10.0(L) 11.5 - 16.0 g/dL LAB HEMETOLOGY METHOD 03/23/2024 9:56 AM [facility] Hematocrit 32.2(L) 35.0 - 47.0 % LAB HEMETOLOGY METHOD 03/23/2024 9:56 AM [facility] MCV 91.0 79.0 - 98.0 FL LAB HEMETOLOGY METHOD 03/23/2024 9:56 AM [facility] MCH 28.2 27.0 - 32.0 pcg LAB HEMETOLOGY METHOD 03/23/2024 9:56 AM [facility] MCHC 31.1(L) 32.0 - 37.0 g/dL LAB HEMETOLOGY METHOD 03/23/2024 9:56 AM [facility] RDW 15.5(H) 11.0 - 15.0 % LAB HEMETOLOGY METHOD 03/23/2024 9:56 AM [facility] Platelets 480(H) 130 - 400 K/mcL LAB HEMETOLOGY METHOD 03/23/2024 9:56 AM [facility] MPV 11.4(H) 7.0 - 11.0 FL LAB HEMETOLOGY METHOD 03/23/2024 9:56 AM [facility] NRBC 0.0 <1.0 % LAB HEMETOLOGY METHOD 03/23/2024 9:56 AM EST [facility] NRBC Absolute 0.00 <0.10 K/mcL LAB HEMETOLOGY METHOD 03/23/2024 9:56 AM EST [facility] Blood Venous blood specimen / Unknown Venipuncture / Unknown 03/23/2024 4:56 AM EST 03/23/2024 8:44 AM EST us Darien Smith MD LAB BLOOD ORDERABLES Final Resul t [facility] [address] [place] [address], documented in this encounter Visit Diagnoses Diagnosis Anemia, unspecified documented in this encounter Care Teams Help Desk Consultant Relationship Specialty Start Date End Date Huong Johnson MD [address] [place] [address] PCP - General Internal Medicine 03/03/24 documented as of this encounter
--- OUTSIDE RECORDS SUMMARY | 2024-04-22 11:36 | XMS_ITS | Encounter Summary ---
Author Organization [facility] Address [address] [place] [address] Care Team Providers Care Intake Assessor Name Role Phone Huong Johnson MD Primary Care Provider [phone] Encounter Details Date Type Department Care Team (Late st Contact Info) Description 03/29/2024 Lab Requisition [facility] Lab [address] [facility] [place] [address] Darien Smith MD [address] [place] [address] [address] [place], [address] Anemia, unspecified Social History Tobacco Use [...] for your loved ones. For example, child support case officer or elderly care for an older adult? [...] Associated Diagnosis Comments COMPLETE BLOOD COUNT Routine 03/30/2024 5:10 AM EST Anemia, unspecified BASIC METABOLIC PANEL Routine 03/30/2024 5:10 AM EST Anemia, unspecified documented in this encounter Results * (ABNORMAL) Basic metabolic panel (03/30/2024 5:10 AM EST) Sodium 143 133 - 145 mmol/L LAB CHEMISTRY METHOD 03/30/2024 11:[address] [facility] Potassium 4.7 3.5 - 5.5 mmol/L LAB CHEMISTRY METHOD 03/30/2024 11:[address] [facility] Comment:Hemolysis present Chloride 112(H) 96 - 110 mmol/L LAB CHEMISTRY METHOD 03/30/2024 11:[address] [facility] CO2 26 21 - 32 mmol/L LAB CHEMISTRY METHOD 03/30/2024 11:[address] [facility] Anion Gap 5 3 - 11 LAB CHEMISTRY METHOD 03/30/2024 11:[address] [facility] Glucose 70 70 - 100 mg/dL LAB CHEMISTRY METHOD 03/30/2024 11:[address] [facility] BUN 7 5 - 25 mg/dL LAB CHEMISTRY METHOD 03/30/2024 11:[address] [facility] Creatinine 0.46(L) 0.50 - 1.10 mg/dL LAB CHEMISTRY METHOD 03/30/2024 11:[address] [facility] eGFR 112 >=60 mL/min/1. 73m2 LAB CHEMISTRY METHOD 03/30/2024 11:[address] [facility] Comment:Calculation based on the??Chronic Kidney Disease Epidemiology Collaboration (CKD-EPI) equation refit??without adjustment for race. BUN/Creatinine Ratio 15.2 LAB CHEMISTRY METHOD 03/30/2024 11:[address] [facility] Calcium 8.7 8.5 - 10.5 mg/dL LAB CHEMISTRY METHOD 03/30/2024 11:[address] [facility] Blood Venous blood specimen / Unknown Venipuncture / Unknown 03/30/2024 5:10 AM EST 03/30/2024 10:53 AM EST us Darien Smith MD LAB BLOOD ORDERABLES Final Resul t [facility] [address] [place] [address], * (ABNORMAL) Complete blood count (03/30/2024 5:10 AM EST) [facility] Signature WBC 6.8 4.8 - 10.8 K/mcL LAB HEMETOLOGY METHOD 03/30/2024 11:54 AM EST [facility] RBC 3.60(L) 3.80 - 4.80 M/mcL LAB HEMETOLOGY METHOD 03/30/2024 11:[address] [facility] Hemoglobin 10.2(L) 11.5 - 16.0 g/dL LAB HEMETOLOGY METHOD 03/30/2024 11:[address] [facility] Hematocrit 33.9(L) 35.0 - 47.0 % LAB HEMETOLOGY METHOD 03/30/2024 11:[address] [facility] MCV 93.1 79.0 - 98.0 FL LAB HEMETOLOGY METHOD 03/30/2024 11:[address] [facility] MCH 28.0 27.0 - 32.0 pcg LAB HEMETOLOGY METHOD 03/30/2024 11:[address] [facility] MCHC 30.1(L) 32.0 - 37.0 g/dL LAB HEMETOLOGY METHOD 03/30/2024 11:[address] [facility] RDW 15.9(H) 11.0 - 15.0 % LAB HEMETOLOGY METHOD 03/30/2024 11:[address] [facility] Platelets 193 130 - 400 K/mcL LAB HEMETOLOGY METHOD 03/30/2024 11:[address] [facility] MPV 12.1(H) 7.0 - 11.0 FL LAB HEMETOLOGY METHOD 03/30/2024 11:54 AM EST [facility] NRBC 0.0 <1.0 % LAB HEMETOLOGY METHOD 03/30/2024 11:54 AM EST [facility] NRBC Absolute 0.00 <0.10 K/mcL LAB HEMETOLOGY METHOD 03/30/2024 11:54 AM EST [facility] Blood Venous blood specimen / Unknown Venipuncture / Unknown 03/30/2024 5:10 AM EST 03/30/2024 10:53 AM EST us Darien Smith MD LAB BLOOD ORDERABLES Final Resul t [facility] [address] [place] [address], documented in this encounter Visit Diagnoses Diagnosis Anemia, unspecified documented in this encounter Care Teams Intake Assessor Relationship Specialty Start Date End Date Huong Johnson MD [address] [place] [address] PCP - General Internal Medicine 03/03/24 documented as of this encounter
--- OUTSIDE RECORDS SUMMARY | 2024-04-22 11:36 | XMS_ITS ---
Author Organization [facility] Address [address] [address] Care Team Providers Care Towel Folder Name Role Phone ADRIAN CORDERO Primary Care Provider Tessa Lemus [phone] Medications Medication SIG (Take, Route, Frequency, Duration) Notes Start Date End Date Status Cipro 500 MG 1 tablet Orally Twice a day for 7 days 06/12/2023 Active Encounters Encounter Location Date Provider Diagnosis [facility] [address] [address] 06/12/2023 Tessa Dawson Plan Of Treatment Medication Medication Name Sig Start Date Stop Date Notes Cipro 500 MG 1 tablet Orally Twice a day for 7 days 2023 Next Appt Details Provider Name:Tessa moise, 02/27/2025 01:00:00 PM, [address] [place] [address], [address], [place], [address], Progress Notes * ASHLEY HAYDENOB:[birth year] (57 yo F)Acc No.[id number]:06/12/2023 Patient:?PILO HAYDEN :1965???Age:57 Y???Sex:Female Address:[address] [place] [address], [address] * Refills? Start Cipro Tablet, 500 MG, Orally, 14 Tablet, 1 tablet, Twice a day, 7 days, Refills=0 * true * Date:? Generated for Printi lisa/[email or web address]/eTransmitting on:?04/22/2024 11:36 AM EST
--- OUTSIDE RECORDS SUMMARY | 2024-04-22 11:36 | XMS_ITS | Continuity of Care Document ---
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 Plan of Treatment Reminders Order Date Submit Date Provider Last Modified By Organization Details Last Modified Time Details Appointments None record ed. Lab None record ed. Referral None record ed. Procedures None record ed. Surgeries None record ed. Imaging None record ed. Medication Orders None record ed. Patient TargetsNo targets recorded. Patient InstructionsNo instructions recorded. Reason for Referral None Reported. Problems Name Problem SNOMED Code Status Onset Date Resolution Date Notes Provider Name and Address Organization Details Recorded Time Liver function tests outside reference range 656909205 Active 2024 [address], [address], [place], [address], [facility] 5 07:37:37 Allergic rhinitis 05864554 Active [address] [facility] [address], [address], [place], [address], [facility] 5 07:37:46 Anxiety 68120543 Active 2024 [address] [facility] [address], [address], [place], [address], [facility] 5 07:37:54 Asthma 901870786 Active [address] [facility] [address], [address], [place], [address], [facility] 5 07:38:02 Gastroesophag eal reflux disease 475962795 Active [address] [facility] [address], [address], [place], [address], [facility] 5 07:38:10 History of Hodgkin lymphoma 481018525 Active 2024 [address] [facility] [address], [address], [place], [address], [facility] 5 07:38:45 Migraine 63160504 Active [address] [facility] [address], [address], [place], [address], [facility] 5 07:38:53 Mood disorder 42191367 Active [address] [facility] [address], [address], [place], [address], [facility] 5 07:39:02 Obstructive sleep apnea syndrome 24176015 Active [address] [facility] [address], [address], [place], [address], [facility] 5 07:39:13 Hypothyroidis m 75861516 Active 20[address] [facility] [address], [address], [place], [address], [facility] 5 07:39:22 Obesity 081384667 Active [address] [facility] [address], [address], [place], [address], [facility] 5 07:39:38 Adenomatous polyp of colon 162474154 Active 2024 [address] [facility] [address], [address], [place], [address], [facility] 5 07:40:10 Coronary arteriosclero sis 21453787 Active 2024 [address] [facility] [address], [address], [place], [address], [facility] 5 07:45:49 Acute respiratory failure 53075159 Active 2024 [address], [address], [place], [address], [facility] 5 07:46:00 Pneumonia 382507241 Active 2024 [address] [facility] [address], [address], [place], [address], [facility] 5 07:46:08 Pleural effusion 76031247 Active [address] [facility] [address], [address], [place], [address], [facility] 5 07:46:27 Atypical chest pain 076358106 Active 2024 [facility] [address] [facility], [address], [place], [address], [facility] 5 08:00:44 Enteritis of intestine 9974069496 Active 2024 [facility] [address] [facility], [address], [place], [address], [facility] 5 08:01:43 Anterior chest wall pain 266125662 Active 2024 Courtney Hilton MD [address] [facility], [address], [place], [address], [facility] 5 13:31:52 Ileitis 06399155 Active 2024 Courtney Hilton MD [address] [place] [address], [address], [place], [address], [facility] 5 14:10:16 Insulin resistance 196477021 Active 2024 Courtney Hilton MD [address] [place] [address], [address], [place], [address], [facility] 5 14:16:36 Anemia 200510985 Active 2024 Courtney Hilton MD [address], [address], [place], [address], [facility] 5 14:26:33 Problem Notes None recorded. Medical Equipment None Reported. Allergies Allergen ID Allergen Name Allergen Category Reaction Reaction Severity Criticality Documentation Date Start Date Code Code System Note Provider Name and Address Organization Details Recorded Time 94893 oxycodone medicatio n itching rash Not available Not available high 03/16/20242023 7804 RxNorm Not Available Not Available Not Available 22350 Gastrogra fin medicatio n Not available Not available Not available 03/16/2024 42929 5 RxNorm Not Available Not Available Not Available 35459 Substance with sulfonami de structure and antibacte rial mechanism of action (substanc e) medicatio n Not available Not available Not available 03/16/2024 65439 8003 SNOMED Not Available Not Available Not Available 32528 acetamino phen / oxycodone medicatio n Not available Not available Not available 03/16/2024 76094 3 RxNorm Not Available Not Available Not Available 79519 diatrizoa te meglumine medicatio n Not available Not available Not available 03/17/2024 3320 RxNorm Not Available Not Available Not Available 40944 acetamino phen / hydrocodo ne medicatio n hives Not available high 03/17/20242023 11420 2 RxNorm Not Available Not Available Not Available Vitals Date Recorded Body height Body mass index (BMI) Body weight Heart rate Respiratory rate Body temperature Oxygen saturation Oxygen saturation in Arterial blood by Pulse oximetry Systolic blood pressure Diastolic blood pressure Provider Name and Address Organization Details Last Updated DateTime 5 154.94 cm 41.2 kg/m2 22207.1 4 g 87 /min 18 /min 97.6 [degF] 99 % 99 % 124 mm[Hg] 70 mm[Hg] JAZMIN MOLINA [address] [facility], [address], [place], [address], [facility] 5 21:27:51 Social History Question Answer Notes LastModified by Organizat ion Details LastModified Time Tobacco Smoking Status Never Smoker Courtney Hilton MD [address] [facility], [address], [place] [address], [address], [facility] 03/17/2024 12:59:09 Do You Have An Advance Directive? Yes Information not available 03/17/2024 What Is Your Level Of Alcohol Consumption? None Information not available 03/17/2024 What Is Your Code Status? Full Code Information not available 03/17/2024 Where Do You Live? [facility] With And 22 Yo Daughter Information not available 03/17/2024 Legal Guardian? No Informati on not available 03/17/2024 Do You Have A Medical Power Of Principal Data Architect? Yes Not Invoked Information not available 03/17/2024 What Was The Date Of Your Most Recent Tobacco Screening? 03/17/2024 Information not available 03/17/2024 Do You Have An Out Of Hospital DNR? No Information not available 03/17/2024 What Is Your Relationship Status? Information not available 03/17/2024 Do You Use Any Illicit Or Recreational Drugs? No Information not available 03/17/2024 Has Tobacco Cessation Counseling Been Provided? No N/a As Pt Is Non-smoker Information not available 03/17/2024 Do You Or Have You Ever Used Any Other Forms Of Tobacco Or Nicotine? No Information not available 03/17/2024 Sex: Unknown Functional Status None recorded. Mental Status None recorded. Family History Nothing Reported Notes:n/c Medical History No medical history recorded. Gynecological HistoryNo gynecological history recorded. Obstetrics History GPAL:G 0 P 0 0 0 0 Immunizations Vaccine Type Date Status Note Provider Nam e and Address Organization Details Recorded Time Tdap 3 completed Donavon Parsons [facility] 03/17/2024 16:04:28 pneumococcal polysaccharide PPV23 7 completed Donavon Parsnos [facility] 03/17/2024 16:04:40 influenza, unspecified formulation 6 completed Donavon Parsons [facility] 03/17/2024 16:04:55 influenza, unspecified formulation 7 completed Donavon Parsons [facility] 03/17/2024 16:04:59 influenza, unspecified formulation 8 completed Donavon Parsons [facility] 03/17/2024 16:05:04 influenza, unspecified formulation 1 completed Donavon Jacks-Caal null, [facility] 03/17/2024 16:05:08 influenza, unspecified formulation 2 completed Donavon Jacks-Caal null, [facility] 03/17/2024 16:05:12 MMRV 7 completed Donavon Jacks-Caal null, [facility] 03/17/2024 16:05:27 MMRV 7 completed Donavon Jacks-Caal null, [facility] 03/17/2024 16:05:32 SARS-COV-2 (COVID-19) vaccine, UNSPECIFIED 0 completed Donavon Jacks-Caal null, [facility] 03/17/2024 16:05:44 SARS-COV-2 (COVID-19) vaccine, UNSPECIFIED 1 completed Donavon Jacks-Caal null, [facility] 03/17/2024 16:05:47 SARS-COV-2 (COVID-19) vaccine, UNSPECIFIED 1 completed Donavon Jacks-Caal null, [facility] 03/17/2024 16:05:52 SARS-COV-2 (COVID-19) vaccine, UNSPECIFIED 2 completed Donavon Jacks-Caal null, [facility] 03/17/2024 16:05:56 SARS-COV-2 (COVID-19) vaccine, UNSPECIFIED 2 completed Donavon Jacks-Caal null, [facility] 03/17/2024 16:06:02 SARS-COV-2 (COVID-19) vaccine, UNSPECIFIED 4 completed Donavon Jacks-Caal null, [facility] 03/17/2024 16:06:06 zoster, unspecified formulation 0 completed Donavon Jacks-Caal null, [facility] 03/17/2024 16:06:19 Past Encounters Encounter ID Performer Location Encounter Start Date Encounter Closed Date Diagnosis/Indication Diagnosis SNOMED-CT Code Diagnosis ICD10 Code Diagnosis Note [id number] [place] [address] 03/16/2024 07:35:02 03/17/2024 10:55:49 Coronary arteriosclerosis 89270295 I25.10 Status post KAMRYN to the proximal RCA back in August3contin ue aspirin and atorvastat inmonitor cp Hypothyroidism 39666117 E03.9 Continue levothyrox ine 125 mcg dailymonit or tsh/t4 Gastroesop hageal reflux disease 491437234 K21.9 continue pantoprazo lemonitor ss Migraine 79266054 G43.90 9 w/ auramonito r Anxiety 29421398 F41.9 Continue sertraline , and as needed lorazepamm onitor mood and affectpsyc h prn Atypical chest pain 1025 67826 R07.89 Chronic left chest wall pain after thoracotom yGets scheduled T6, T7, T8 nerve blocks with [facility] almost monthly.Co ntinue pregabalin and nortriptyl ine Enteritis of intestine 0067040678 K52.9 Continue home mesalamine and ursodiol History of Hodgkin lymphoma 602382411 Z85.71 status post mantle field radiation back in 1992 in remission for many years 4 excisional biopsy of a right groin lymph node, and left upper lung lobe mini thoracotom y after a suspicious PET scan (both biopsies negative for malignancy monitor and f/up with oncology as needed Pleural effusion 0732764 8 J90 history of recurrent left pleural effusions/ pneumothor aces status to thoracente ses (reportedl y negative for malignancy ) and eventually pleurodesi sfollows with pulmshe will sched f/up apt when she is stronger Obstructiv e sleep apnea syndrome 00085857 G47.33 CPAP qhs Obesity 038176227 E66.9 monitor diet and weightsedu cation Mood disorder 57473046 F 39 see depression Asthma 931874356 J45.90 9 mild asthmarece ntly tx for exaccontin ue symbicort and trelegy dailynebz stopped yesterday prior to dcmonitor need to restart Acute resp iratory failure 44752313 J96.00 dt asthma exac and multifocal PNAnow on RAstill sob with exertion, could be dt deconditio ningmonito r resp status Pneumonia 619385117 J18. 9 multifocal PNAmonitor cbc on admit and weeklyrepe at CXR in 6 weeksconti nue augmentin bid (ends 03/16)make f/up with her pulm Liver func tion tests outside reference range 542253256 R94.5 monitor LFTscmp on admit and weekly [id number] Courtney Hilton MD [facility] [address] [place] [address] 03/17/2024 12:00:28 03/18/2024 11:46:19 Coronary arteriosclerosis 95003640 I25.10 Status post KAMRYN to the proximal RCA in 08/2022No recent sxs.Contin ue ASA 81 mg qd and atorvastat in 40 mg qd.Monitor for sxs.F/U with cardio as planned Hypothyroidism 83985443 E03.8 Last TSH 0.48 in 02/2024.In 09/2023 TSH had been low and levothyrox ine changed to 6d/wk, unclear when it got increased again, may have been inpt error.Cont inue levothyrox ine 125 mcg qdWill recheck TSH and FT4 with next labs Gastroesop hageal reflux disease 989319256 K21.9 No current sxs.Contin ue pantoprazo le 40 mg qd.Monitor GI sxs. Migraine 70417707 G43.80 9 Relatively frequent in hx.Follows with neuro.Cont inue Emgality 120 mg monthly and nortriptyl ine 10 mg qhs.Monito r sxs.F/U as planned. Anxiety 48930587 F41.1 Mood good today.Cont inue sertraline 125 mg qd and lorazepam 0.5 mg BID prn.Monito r mood.Consu lt psych prn History of Hodgkin lymphoma 810923844 Z85.71 S/P mantle field radiation back in 1992 in remission for many yearsF/U with oncology prn Pleural effusion 4345707 8 J90 In hx, only minor on this admission. Monitor Obstructiv e sleep apnea syndrome 66416606 G47.33 Improved after gastric bypass surgery, but back on CPAP now.Contin ue CPAP with sleep.F/U with pulmonary. Obesity 372349132 E66.01 Z68.41 As above. Asthma 280051207 J45.40 Almost back to baseline.D /C med list had symbicort and trelegy listed.Pt says symbicort doesn't work, she is on trelegy at home. Actually has a brand new one in her nightstand here.Resta rt trelegy 100/62.5/2 5 mcg qdContinue albuterol q 6 hrs prn.Monito r resp status. Acute resp iratory failure 12230394 J96.01 Due to PNA causing asthma exacerbati on.Now resolved and weaned back to RA.Continu e asthma meds as below.Nadia tor resp status. Pneumonia 363035434 J15. 8 S/P multifocal PNAComplet ed course of abxs with Augmentin 875 mg BID on 03/16.Contin ue asthma meds as below.Very deconditio roberto.Needs PT/OT for strengthen ing, balance, gait training, safety and function.C ontinue fall precaution s.Monitor for safety.Mon itor resp status. Anterior c hest wall pain 761290898 R07.89 Chronic left chest wall pain after thoracotom y.Gets scheduled T6, T7, T8 nerve blocks with [facility] on regular schedule.C ontinue pregabalin 100 mg 5x/d, nortriptyl ine 10 mg qd,and lidocaine patch daily.Didn 't tolerate gabapentin .Monitor sxs and f/u as planned. History of bariatric surgical procedure 967584121 Z98.84 S/P gastric bypass in 2018.Nestor nue ursodiol 500 mg BID.Contin ue to encourage healthy eating and continued wt. loss. Ileitis 92217601 K52.9 Under good control on current regimen.Co ntinue mesalamine 1.5 mg qd.Monitor sxs.F/U with GI as planned. Insulin resistance 69800 5000 E88.810 Sugars mostly WNL inpt, but HgA1C 6.2Encoura ge healthy eating and continued wt. loss.Monit or as outpt. Vitamin D deficiency 347 64576 E56.8 Continue vitamin D 2000 IU qd.Monitor levels prn Anemia 253149273 D64.89 Iron low inpt with high ferritin (likely due to infection) .Will start iron gluconate 324 mg qd. with vitamin C 500 mg qd for absorption .Monitor labs [id number] NETO LIAO NP [facility] [address] [place] [address] 03/24/2024 12:46:00 03/25/2024 13:32:28 Pneumonia 304617917 J15.8 S/P multifocal PNAComplet ed course of abxs with Augmentin 875 mg BID on 03/16.Contin ue asthma meds as below.Very deconditio roberto.Needs PT/OT for strengthen ing, balance, gait training, safety and function.G oal is to return home.Nestor nue fall precaution s.Monitor for safety.Mon itor resp status. Acute resp iratory failure 44743269 J96.01 Due to PNA causing asthma exacerbati on.Now resolved and weaned back to RA.Continu e asthma meds as below.Nadia tor resp status. Pleural effusion 2527296 8 J90 In hx, only minor on this admission. Monitor Asthma 181757217 J45.40 Almost back to baseline.D /C med list had symbicort and trelegy listed.Pt says symbicort doesn't work, she is on trelegy at home. Actually has a brand new one in her nightstand here.Resta rt trelegy 100/62.5/2 5 mcg qdContinue albuterol q 6 hrs prn.Monito r resp status. Anterior c hest wall pain 519537677 R07.89 Chronic left chest wall pain after thoracotom y.Gets scheduled T6, T7, T8 nerve blocks with [facility] on regular schedule.C ontinue pregabalin 100 mg 5x/d, nortriptyl ine 10 mg qd,and lidocaine patch daily.Didn 't tolerate gabapentin .Monitor sxs and f/u as planned. Coronary arteriosclerosis 41489110 I25.10 Status post KAMRYN to the proximal RCA in 08/2022No recent sxs.Contin ue ASA 81 mg qd and atorvastat in 40 mg qd.Monitor for sxs.F/U with cardio as planned Hypothyroidism 68018032 E03.8 Last TSH 0.48 in 02/2024.In 09/2023 TSH had been low and levothyrox ine changed to 6d/wk, unclear when it got increased again, may have been inpt error.Cont inue levothyrox ine 125 mcg qdWill recheck TSH and FT4 with next labs Gastroesop hageal reflux disease 560579849 K21.9 No current sxs.Contin ue pantoprazo le 40 mg qd.Monitor GI sxs. Insulin resistance 23577 5000 E88.810 Sugars mostly WNL inpt, but HgA1C 6.2Encoura ge healthy eating and continued wt. loss.Monit or as outpt. Anemia 130080303 D64.89 Iron low inpt with high ferritin (likely due to infection) .Will start iron gluconate 324 mg qd. with vitamin C 500 mg qd for absorption .Monitor labs Migraine 21530587 G43.80 9 Relatively frequent in hx.Follows with neuro.Cont inue Emgality 120 mg monthly and nortriptyl ine 10 mg qhs.Monito r sxs.F/U as planned. Anxiety 07059759 F41.1 Mood good today.Cont inue sertraline 125 mg qd and lorazepam 0.5 mg BID prn x 14 days, re-eval 03/28Monito r mood.Consu lt psych prn Ileitis 29150786 K52.9 Under good control on current regimen.Co ntinue mesalamine 1.5 mg qd.Monitor sxs.F/U with GI as planned. History of Hodgkin lymphoma 809532856 Z85.71 S/P mantle field radiation back in 1992 in remission for many yearsF/U with oncology prn Obstructiv e sleep apnea syndrome 21785114 G47.33 Improved after gastric bypass surgery, but back on CPAP now.Contin ue CPAP with sleep.F/U with pulmonary. History of bariatric surgical procedure 643615292 Z98.84 S/P gastric bypass in 2018.Nestor nue ursodiol 500 mg BID.Contin ue to encourage healthy eating and continued wt. loss. Obesity 111750517 E66.01 Z68.41 As above. Vitamin D deficiency 347 54823 E56.8 Continue vitamin D 2000 IU qd.Monitor levels prn Dizziness 451917665 R42 When OOB, usually goes away.Somet imes she feels her HR go up, which then makes her feel more SOB.Labs goodVSSChe ck orthostati c VS x 3Monitor [id number] SHARMILA KING, [employer] [facility] [address] [place] [address] 03/25/2024 10:15:48 03/28/2024 15:28:10 Streptococcal sore throat 20276063 J02.0 highly suspicious exam for strep throatstar t amoxicilli n 500 mg q12h x 10 daystyleno l for pain control and body achessuppo rtive care with rest and fluidscepa col throat lozenge po q2h prnthroat swab [id number] JAZMIN MOLINA [facility] [address] [place] [address] 03/29/2024 14:07:44 03/30/2024 15:57:47 Asthenia 53289689 R53.1 lingering weakness secondary to pneumonia and recent presumed strep throatcont inue PT/OT for strengthen ing and conditioni ngdiscusse d with patient to increase fluids to minimize risk for dehydratio n that can contribute to weakness and fatigue, patient verbalizes understand ing. Asthma 590934341 J45.40 breathing is improvingc ont on trelegyCon tinue albuterol q 6 hrs prn. Health Concerns Section Related Observation LastModified by Organization Detai ls LastModified Time None Recorded Concern Status LastModified by Organization Details LastModified Time None Recorded Payers Encounter Date Sequence Insurance Name Policy Number Policy Chilel Covered Member ID Chilel Member ID Guarantor Name 03/29/2024 1 [facility]: MEDICARE HMO BLUE (MEDICARE REPLACEMENT HMO) [id number] Rose Marie Ross [id number] Rose Marie Ross Notes Date Note Type Note Provider Name and Address Organization Details Recorded Time 03/29/2024 text/html Patient is a 58 yr old female seen for acute rounding visit. She is seen sitting upright in wheelchair in her room in [facility], she reports breathing has greatly improved, continues to feel tired at times but otherwise she is doing well and is looking forward to going home. Her appetite has improved she is eating and drinking ok, denies any new discomfort, no concerns with elimination. JAZMIN MOLINA [address] [facility], [address], [place], [address], [facility] [employer] 03/29/2024 21:29:50 OBGyn Episode No OBEpisode recorded.
--- OUTSIDE RECORDS SUMMARY | 2024-04-22 11:37 | XMS_ITS | Continuity of Care Document ---
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 Role Phone Huong Johnson MD Primary Care Physician Encounter [facility] R [id number] Date(s): 03/12/24 - 04/11/[address] [address]- Attending Physician: Not on Staff, Attending MD Admitting Physician: Not on Staff, Admitting MD Referring Physician: Not on Staff, Referring MD Encounter Type: Pre-Outpt Allergies, Adverse Reactions, Alerts Substance Criticality Severity Reaction Reaction Severity Status sulfonamides hives Active Percocet 5/325 itching Activ e oxyCODONE Itchy Skin rash Active Gastrografin Active Vicodin itch Active Immunizations Given and Recorded Vaccine Date Status Refusal Reason influenza virus vaccine, inactivated 1 12/26/23 Re corded influenza virus vaccine, inactivated 2 12/09/21 Gi dayana influenza virus vaccine, inactivated 12/08/20 Abel rded influenza virus vaccine, inactivated 3 11/29/18 Gi dayana influenza virus vaccine, inactivated 12/18/17 Abel rded influenza virus vaccine, inactivated 4 11/03/16 Re corded influenza virus vaccine, inactivated 10/22/15 Abel rded influenza virus vaccine, inactivated 5 12/07/12 Re corded influenza virus vaccine, inactivated 6 12/30/11 Gi dayana SARS-CoV-2(COVID-19)mRNA-LNP vac([id number]) 12/26/23 Recorded tetanus/diphtheria/pertussis, acel(Tdap) 7 02/16/23 Given tetanus/diphtheria/pertussis, acel(Tdap) 03/01/12 Given [id number] 12y+ bivalent booster vax 03/07/22 Recorded SARS-CoV-2 mRNA ([id number]) vax 09/08/21 Recorded SARS-CoV-2 (COVID-19) mRNA BNT-162b2 vac 12/08/20 Recorded SARS-CoV-2 (COVID-19) mRNA BNT-162b2 vac 8 03/16/20 Recorded SARS-CoV-2 (COVID-19) mRNA BNT-162b2 vac 9 02/24/20 Recorded Influenza Virus Vaccine (oldterm) 10 12/27/19 Abel rded Influenza Virus Vaccine (oldterm) 12/03/19 Recorde d zoster vaccine, inactivated 10/10/19 Recorded Zoster Vaccine Live 10/09/19 Recorded Measles/Mumps/Rubella Virus Vaccine 01/05/17 Recor ded Measles/Mumps/Rubella Virus Vaccine 09/30/16 Recor ded pneumococcal 23-valent vaccine 11 11/03/16 Recorde d 1Result Comment: Done at [facility] 2Result Comment: [facility] [id number] 3Result Comment: [facility] [id number] 4Result Comment: [12/01/2016] [facility] 5Result Comment: [02/14/2013] [facility] 6Admin Note: work 7Result Comment: [id number] 8Result Comment: Covid 19 9Result Comment: Covid 19 10Result Comment: Done at [facility] 11Result Comment: [12/01/2016] [facility] Medications albuterol CFC free 90 mcg/inh inhalation aerosol 2, puffs, Inhalation, Every 6 hours, PRN, # 8.5 Gm, Refills 2, Tot. Refills 2, Maintenance, 05/17/2409:25:00 AM EDT, Inhaler, Route to Pharmacy Electronically, NCPDP_[id number], [facility] #[id number], 157.4, cm, 05/18/23 9:45:00 EDT, Height, 93.9, kg, 05/18/23 9:45:00 EDT, Dry Weight Start Date: 05/18/23 Stop Date: 08/16/23 Status: Ordered Quantity: 8.5 Unit: g Repeat number: 3 Apriso 0.375 g oral capsule, extended release 4 capsule = 1.5 Gm, By Mouth, Daily in AM, 0 Refills, Maintenance, 02/16/23 10:26:00 AM EST, Partial fill upon patient request if the prescription is for a schedule II opioid drug. Start Date: 02/16/23 Status: Ordered Repeat number: 1 aspirin 81 mg oral delayed release tablet 81 mg, 1, tablet, By Mouth, Daily, Refills 0, Maintenance, 08/21/22 10:36:00 AM EDT, Partial fill upon patient request if the prescription is for a schedule II opioid drug. Start Date: 08/21/22 Status: Ordered Repeat number: 1 atorvastatin 40 mg oral tablet 1 tablet = 40 mg, By Mouth, Daily, 0 Refills, Maintenance, 08/21/22 10:35:00 AM EDT, Partial fill upon patient request if the prescription is for a schedule II opioid drug. Start Date: 08/21/22 Status: Ordered Repeat number: 1 Emgality Prefilled Pen 120 mg/mL subcutaneous solution = 240 mg, Subcutaneous Injection, Once, Loading Dose, # 2 kit, 0 Refills, Soft Stop, 03/09/24 6:01:00AM EST, [facility] #[id number], Partial fill upon patient request if the prescription is for aschedule II opioid drug., 157.4, cm, 02/29/24 10:36:00 EST, Height, 93.5, kg, 07/07/23 11:18:00 EDT, Dry Weight Start Date: 03/09/24 Status: Ordered Quantity: 2.0 Unit: kit Repeat number: 1 Emgality Prefilled Pen 120 mg/mL subcutaneous solution = 120 mg, Subcutaneous Injection, Every 28 days, Maintenance Dose, # 1 kit, 4 Refills, Soft Stop, 03/09/24 6:02:00 AM EST, [facility] #[id number], Partial fill upon patient request if the prescription is for a schedule II opioid drug., 157.4, cm, 02/29/24 10:36:00 EST, Height, 93.5, kg, 07/06/2410:18:00 EDT, Dry Weight Start Date: 03/09/24 Status: Ordered Quantity: 1.0 Unit: kit Repeat number: 5 Guaiatussin = 400 mg, By Mouth, 4 times a day, 0 Refills, Maintenance, 03/09/24 9:07:00 AM EST, Partial fill uponpatient request if the prescription is for a schedule II opioid drug. Start Date: 03/09/24 Status: Ordered Repeat number: 1 Levoxyl 0.125 mg oral tablet 1 tablet = 125 mcg, By Mouth, Daily, # 90 tablet, 1 Refills, Maintenance, 04/10/24 12:27:00 PM EST, Tablet, [facility] #[id number], dose reduced from 137 to 125 mcg, 157.4, cm, 03/09/24 10:41:00 EST, Height, 93.5, kg, 03/09/24 10:41:00 EST, Dry Weight Start Date: 04/10/24 Stop Date: 10/07/24 Status: Ordered Quantity: 90.0 Unit: tablet Repeat number: 2 lidocaine 1.8% topical film 1 patch, Topically, Daily, leave on up to 12 hours, Maintenance, 03/09/24 9:08:00 AM EST, Film, Partial fill upon patient request if the prescription is for a schedule II opioid drug. Start Date: 03/09/24 Status: Ordered Repeat number: 1 LORazepam 0.5 mg oral tablet 1 tablet = 0.5 mg, By Mouth, 2 times a day, PRN as needed for anxiety, # 60 tablet, 0 Refills, Maintenance, 02/08/24 11:36:00 AM EST, Tablet, [facility] #[id number], Partial fill upon patient request if the prescription is for a schedule II opioid drug., 157.4, cm, 11/05/23 12:44:00 EDT, Height, 93.5, kg, 07/07/23 11:18:00 EDT, Dry Weight Start Date: 02/08/24 Status: Ordered Quantity: 60.0 Unit: tablet Repeat number: 1 Indication: Anxiety disorder, unspecified meclizine 12.5 mg oral tablet TAKE 1 TO 2 TABLETS BY MOUTH THREE TIMES DAILY FOR 10 DAYS NEEDED FOR DIZZINESS Start Date: 06/16/22 Status: Ordered Repeat number: 1 Mirena 52 mg intrauteral device 1 each = 52 mg, Once, changed in 2014, 0 Refills, Maintenance, 12/07/09 10:16:00 AM EDT Start Date: 12/07/09 Status: Ordered Repeat number: 1 nortriptyline 10 mg oral capsule See Instructions, TAKE 1 CAPSULE BY MOUTH DAILY AT BEDTIME, # 90 capsule, Refills 3, Tot. Refills 3, Maintenance, 11/28/23 10:32:00 PM EDT, Instructions Replace Required Details, Route to Pharmacy Electronically, [facility] #[id number], 157.4, cm, 11/05/23 12:44:00 EDT, Height, 93.5, kg, 07/07/23 11:18:00 EDT, Dry Weight Start Date: 11/28/23 Status: Ordered Quantity: 90.0 Unit: capsule Repeat number: 4 pantoprazole 40 mg oral delayed release tablet 1 tablet, By Mouth, Daily, # 90 tablet, 3 Refills, Maintenance, 09/02/23 11:56:00 AM EDT, 157.4, cm,08/28/23 10:39:00 EDT, Height, 93.5, kg, 07/07/23 11:18:00 EDT, Dry Weight Start Date: 09/02/23 Status: Ordered Quantity: 90.0 Unit: tablet Repeat number: 4 pregabalin 50 mg oral capsule 2 capsules, By Mouth, 5 times a day, 0 Refills, Maintenance, 11/05/23 1:21:00 PM EDT, Partial fill upon patient request if the prescription is for a schedule II opioid drug. Start Date: 11/05/23 Status: Ordered Repeat number: 1 sertraline 100 mg oral tablet 1 tablet = 100 mg, By Mouth, Daily, total daily dose 125 mg, # 90 tablet, 1 Refills, Maintenance, 04/10/24 12:26:00 PM EST, [facility] #[id number], pls dispense as 90 day supplies, 157.4, cm, 03/09/24 10:41:00 EST, Height, 93.5, kg, 03/09/24 10:41:00 EST, Dry Weight Start Date: 04/10/24 Stop Date: 10/07/24 Status: Ordered Quantity: 90.0 Unit: tablet Repeat number: 2 sertraline 25 mg oral tablet 1 tablet = 25 mg, By Mouth, Daily, ia ddition to 100 mg- total daily dose 125 mg, # 90 tablet, 1 Refills, Maintenance, 04/10/24 12:26:00 PM EST, [facility] #[id number], pls dispense as 90 day supplies, 157.4, cm, 03/09/24 10:41:00 EST, Height, 93.5, kg, 03/09/24 10:41:00 EST, Dry Weight Start Date: 04/10/24 Stop Date: 10/07/24 Status: Ordered Quantity: 90.0 Unit: tablet Repeat number: 2 Symbicort 80mcg/4.5mcg Inhaler Refills 0, Maintenance, 02/16/23 10:28:00 AM EST Start Date: 02/16/23 Status: Ordered Repeat number: 1 Trelegy Ellipta 100 mcg-62.5 mcg-25 mcg/inh inhalation powder 1 inhalation, Inhalation, Daily, at the same time every day, 0 Refills, Maintenance, 03/09/24 9:11:00AM EST, Powder, Partial fill upon patient request if the prescription is for a schedule II opioid drug. Start Date: 03/09/24 Status: Ordered Repeat number: 1 ursodiol 500 mg oral tablet 1 tablet = 500 mg, By Mouth, 2 times a day, 0 Refills, Maintenance, 02/29/24 10:44:00 AM EST, Partial fill upon patient request if the prescription is for a schedule II opioid drug. Start Date: 02/29/24 Status: Ordered Repeat number: 1 Vitamin D3 oral tablet 1 tablet = 400 International_Units, By Mouth, Daily, 2000 units, # 30 tablet, 0 Refills, Maintenance, 11/24/17 1:49:12 PM EDT, Tablet Start Date: 11/24/17 Status: Ordered Quantity: 30.0 Unit: tablet Repeat number: 1 Problem List Condition Confirmation Course Effective Dates Status H ealth Status Informant Abnormal Liver Function Test Confirmed Active Allergic Rhinitis Confirmed Active Anxiety Confirmed 11/29/12 Active Asthma, mild Confirmed 03/01/12 Active Esophageal reflux (GERD) Confirmed Active Family history of colon cancer Confirmed Active History of gastric restrictive surgery Confirmed Active Hodgkin lymphoma Confirmed 1992 Active Migraine Confirmed Active Mood disorder Confirmed Active Obstructive sleep apnea (adult or pediatric) Confirmed 03/01/12 Active Radiation-induced hypothyroidism Confirmed Active Severe obesity Confirmed Active Tubular adenoma of colon Confirmed Active Social History Social History Type Response Smoking Status Never smoker entered on: 03/16/13 Sex Sex Representation Female (finding) Patient Care team information Care Team Personnel Name: Huong Johnson MD Position: [facility] Physician - Primary Care Member Role: PCP Address: [address] [place] [address] [facility] Pediatric [address] Telecom: Name: Deann Sethi RN Position: [facility] RN Member Role: Primary Care Nurse Name: Ernestine Norris RN Position: [facility] RN Member Role: Primary Care Nurse Name: Mariela Wild MD Position: [facility] Physician - Endocrinology Member Role: Lifetime Consulting Physician Name: Nahun Garcia RN Position: [facility] RN Member Role: Primary Care Nurse Care Team Related Persons Name: SIOMARA HAYDEN Insurance Providers Guarantor name: PILO [facility] Information #: 1 Payer: [employer] Member Number: NA Policy Number: NA Group Number: NA
--- OUTSIDE RECORDS SUMMARY | 2024-04-22 11:37 | XMS_ITS ---
Author Organization [facility] Address [address] [address] Care Team Providers Care Rn Neonatal Name Role Phone ADRIAN CORDERO Primary Care Provider Tessa Lemus Unavailable [phone] Allergies Allergen (clinical drug ingredient) Drug/Non Drug Allergy documented on EMR Reaction Allergy Type Onset Date Status sulfamethoxazole / trimethoprim Bactrim DS Hives Drug Allergy Active Gastrografin Unknown Drug Allergy Acti ve oxycodone Oxycodone HCl Hives Drug Allergy Act sowmya acetaminophen / oxycodone Percocet Hives Drug Allergy Active Vicodin Hives Drug Allergy Active Results Component Value Reference Range Notes Urinalysis Reviewed date:02/23/2024 09:05:26 AM Interpretation: Performing Lab: Notes/Report: PH 5.0 PROTEIN NEG GLUCOSE MOD BLOOD NEG REASON FOR VISIT Annual SUPERINTENDENT COMMUNICATIONS Physical, Annual SUPERINTENDENT COMMUNICATIONS Physical 50-59* Medications Medication SIG (Take, Route, Frequency, Duration) Notes Start Date End Date Status Nortriptyline HCl 10 MG Oral for 30 Active Apriso 0.375 GM Oral for 30 Ac tive Calcium 1 tab Oral Active Atorvastatin Calcium 40 MG Oral for 30 Active LORazepam 0.5 MG Oral for 30 A ctive Multivitamins 1 ORAL daily for -3 06/13/2013 Active Sertraline HCl 100 MG 1 tablet Orally On ce a day Plus 25 MG Active Pantoprazole Sodium 40 MG TAKE ONE TABLE T BY MOUTH EVERY DAY Oral for 90 Active Meclizine HCl PRN Active Levoxyl 112 MCG 1 tablet in the morning on an empty stomach Orally Active Vitamin D 50 MCG (2000 UT) 1 tablet Orally Once a day for 30 day(s) Active Aspir-81 Active Angela Active Ursodiol 500 MG Oral for 90 Days Active Morphine Sulfate 15 MG Oral for 5 Days Active Lidocaine 5 % External for 30 Days Active Pregabalin 50 MG TAKE 1 CAPSULE BY MOUTH FIVE TIMES DAILY Oral for 30 Days Active Pentasa 250 MG 4 capsules Three mikki es a day Active Social History Tobacco Use: Social History Observation Description Date Details (start date - stop date) Never Smoker NA - NA AUDIT-C (Standard) Question Answer Notes Did you have a drink containing alcohol in the p ast year? 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 Vital Signs Temperature 97.8 degrees Fahrenheit 02/22/20 24 Blood pressure systolic 108 mm Hg 02/22/20 24 Blood pressure diastolic 70 mm Hg 024 Height 63 in 02/22/2024 Weight 231 lbs 02/22/2024 BMI 40.92 kg/m2 02/22/2024 Encounters Encounter Location Date Provider Diagnosis [address] [place] [address] 02/22/2024 Tessa Dawson Encounter for gynecological examination (general) (routine) without abnormal findings Z01.419 ; Encounter for screening mammogram for malignant neoplasm of breast Z12.31 ; Personal history of Hodgkin lymphoma Z85.71 ; Cardiomyopathy due to drug and external agent I42.7 and Dense breasts, unspecified R92.30 Assessments Encounter Date Diagnosis (ICD Code) Assessment Notes Treatment Notes Treatment Clinical Notes Section Notes 02/22/2024 Encounter for gynecological examination (general) (routine) without abnormal findings (ICD-10 - Z01.419) NO PAP TEST, DUE IN 2025. 02/22/2024 Encounter for screening mammogram for malignant neoplasm of breast (ICD-10 - Z12.31) REGULAR MAMMOGRAMS AND SBE'S WERE RECOMMENDED. 02/22/2024 Personal history of Hodgkin lymphoma (ICD-10 - Z85.71) PAT HAS HAD RADIATION TREATMENTS, WITH POSSIBLE RECURRENCE ON HER LUNG. REFERRED PAT TO [facility] FOR FURTHER EVALUATION AND MX. 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 ADVISED PAT TO SEED TX AT [facility]. THEY HAVE AN ONCOLOGY-CARDIOLOG Y SECTION. 02/22/2024 Dense breasts, unspecified (ICD-10 - R92.30) DISCUSSED DENSE BREASTS ON MAMMOGRAM AND ITS IMPLICATIONS. 3D MAMMOGRAMS WERE RECOMMENDED. Plan Of Treatment Treatment Notes Assessment Notes Encounter for gynecological examination (general) (routine) without abnormal findings NO PAP TEST, DUE IN 2025. Encounter for screening mamm ogram for malignant neoplasm of breast REGULAR MAMMOGRAMS AND SBE'S WERE RECOMMENDED. Personal history of Hodgkin lymphoma PAT HAS HAD RADIATION TREATMENTS, WITH POSSIBLE RECURRENCE ON HER LUNG. REFERRED PAT TO [facility] FOR FURTHER EVALUATION AND MX. Cardiomyopathy due to drug a nd external agent DISCUSSED CHF AND CARDIOMYOPATHY DUE TO RADIATION EXPOSURE. ADVISED PAT TO SEED TX AT [facility]. THEY HAVE AN ONCOLOGY-CARDIOLOGY SECTION. Dense breasts, unspecified DISCUSSED DENSE BREASTS ON MAMMOGRAM AND ITS IMPLICATIONS. 3D MAMMOGRAMS WERE RECOMMENDED. Pending Test Test Name Order Date MM Digital Mammo Screening 02/22/2024 Next Appt Details Follow Up: 1 Year, Reason: Provider Name:Tessa moise, 02/27/2025 01:00:00 PM, [address] [facility], [address], [place], [address], Progress Notes * ASHLEY HAYDENOB:[birth year] (58 yo F)Acc No.[id number]:02/22/2024 PROGRESS NOTES Patient:?PILO HAYDEN Appointment Provider:?Tessa moise M.D. :1965???Age:58 Y???Sex:Female D ate:02/22/2024 Address:[address] [place], [place] [id number] Pcp:ADRIAN CORDERO Subjective: * Chief Complaints: * ???Annual SUPERINTENDENT COMMUNICATIONS PhysicalAnnual SUPERINTENDENT COMMUNICATIONS Physical 50-59* * HPI: ???New/Follow-up Patient Consult:? MIRENA IUD WAS INSERTED IN 2014 TO CONTROL MENORRHAGIA AND REMOVED IN 2023 WHEN HORMONE EVALUATION CONFIRMED MENOPAUSE.? NO BLEEDING.?? SHE IS AND USES LUBRICANTS FOR DYSPAREUNIA.?? SHE HAS A HX OF HODGKIN'S LYMPHOMA IN HER 'S.? PET SCAN DONE AT [facility] SHOWED LESIONS IN THE LEFT INGUINAL AREA AND LEFT UPPER LUNG LOBE.? SHE UNDERWENT THORACOTOMY AT [facility] THIS SUMMER BUT THE MASS WAS NOT COMPLETELY EXCISED.? PATHOLOGY REPORT SHOWED BENIGN FINDINGS.?? SHE HAD RADIATION THERAPY ACROSS HER CHEST IN HER 'S FOR LYMPHOMA AND NOW HAS S/SX OF CHF.? SHE IS OFTEN SHORT OF BREATH AND CAN NOT PERFORM HER NORMAL ACTIVITIES.? SHE IS ON LEAVE FROM HER JOB [facility].? SHE WANTS TO CONSULT PROGRAMS PROVIDING EVALUATION AND MX OF CARDIAC COMPLICATIONS FROM RADIATION.?? HER LAST MAMMOGRAM DONE IN SEPTEMBER 2023 SHOWED BREASTS ARE NOT DENSE AND WAS NORMAL.? HER MAMMOGRAMS WERE DENSE IN THE PAST WITH BREAST CA RISK OF 13%. HER LAST PAP TEST IN 2022 WAS NEGATIVE AND HPV NEGATIVE.? SHE HAS NO HX OF ABNORMAL PAP TESTS.?? SHE HAD A COLONOSCOPY DONE IN 2021. PFIZER X 4. ???Annual:? Patient presents for annual exam, ages 50-59. ?General Health Maintenance:?Current breast complaints:?no breast pain, mass, discharge, or skin changes ?Urinary problems:?patient reports no urinary health problems or bowel health problems ?Calcium intake:?takes adequate calcium via diet and supplementation ?Significant SUPERINTENDENT COMMUNICATIONS problems:?no significant cardiographer symptoms or problems * ROS:?general:?no?chest pain.?no?palpitations.?no?headache.?no?cough.?no?shortness of breath.?no?fever.?no?unexplained weight loss.?no?nausea/vomiting.?no?change in bowel movements.?no blood in stool.?no?genitourinary complaints.?no?skin complaints.? * Medical History:? 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 * OB History:?Total pregnancies?3.?Total living children?2.?(s)?2.? * Surgical History:?Ankle Fusi on Right x2 Cholecystectomy Sleeve Gastrectomy 12/2017Pleurodesis for Pleural Effusion 07/06/18Polyp removal 05/2018Haert Stent, 2 biopsies-Lung Pleura 08/2022LUNG BIOPSY, 03/2023 * Hospitalization/Major Diagno stic Procedure:?See Surgical Hx * Family History:?Mother: dece ased 59 yrs, Colon Cancer.?Father: alive, Cancerous Colon Polyp, Prostate Cancer, diagnosed with Unspecified essential hypertension.?Paternal Grand Mother: Breast Cancer.?Maternal Grand Mother: Ovarian Cancer.? * Social History:?Tobacco Use:?Tobacco Control (Standard)?Tobacco use:?Nonsmoker ???Sexual History:?Sexual History?Had sex in the past 12 months (vaginal, oral, or anal)?: Yes, with: Men only.?Details of Sexual History?Are you sexually active??Yes ???Drugs/Alcohol:?Drugs?Have you used drugs other than those for medical reasons in the past 12 months??No ???Miscellaneous:?Children: yes, 2. ?Domestic violence: no. ?Exercise: yes, walking. ?Home smoke detector use: yes. ?Living with: spouse. ?Marital status: . ?Natural support system: yes. ?Occupation: Works full-time. ?Sexual abuse: no. ?Sexually active: yes, monogamous relationship. ?Verbal abuse: no. ???Drug/Alcohol:?AUDIT-C (Standard)?Did you have a drink containing alcohol in the past year??No ?Points?0 ?Interpretation?Negative * Medications:?TakingAspir-81 Angela Vitamin D 50 MCG (1999 UT) Tablet 1 tablet Orally Once a day Sertraline HCl 100 MG Tablet 1 tablet Orally Once a day , Notes to Pharmacist: Plus 25 MGPantoprazole Sodium 40 MG Tablet Delayed Release TAKE ONE TABLET BY MOUTH EVERY DAY Oral Meclizine HCl , Notes to Pharmacist: PRNLevoxyl 112 MCG Tablet 1 tablet in the morning on an empty stomach Orally Multivitamins 30 1 ORAL daily Calcium 1 tab Oral Nortriptyline HCl 10 MG Capsule Oral Apriso 0.375 GM Capsule Extended Release 24 Hour Oral Atorvastatin Calcium 40 MG Tablet Oral LORazepam 0.5 MG Tablet Oral Pentasa 250 MG Capsule Extended Release 4 capsules Three times a day Ursodiol 500 MG Tablet Oral Morphine Sulfate 15 MG Tablet Oral Lidocaine 5 % Patch External Pregabalin 50 MG Capsule TAKE 1 CAPSULE BY MOUTH FIVE TIMES DAILY Oral Taking Aspir-81 Taking Angela Taking Vitamin D 50 MCG (1999 UT) Tablet 1 tablet Orally Once a day Taking Sertraline HCl 100 MG Tablet 1 tablet Orally Once a day , Notes to Pharmacist: Plus 25 MGTaking Pantoprazole Sodium 40 MG Tablet Delayed Release TAKE ONE TABLET BY MOUTH EVERY DAY Oral Taking Meclizine HCl , Notes to Pharmacist: PRNTaking Levoxyl 112 MCG Tablet 1 tablet in the morning on an empty stomach Orally Taking Multivitamins 30 1 ORAL daily Taking Calcium 1 tab Oral Taking Nortriptyline HCl 10 MG Capsule Oral Taking Apriso 0.375 GM Capsule Extended Release 24 Hour Oral Taking Atorvastatin Calcium 40 MG Tablet Oral Taking LORazepam 0.5 MG Tablet Oral Taking Pentasa 250 MG Capsule Extended Release 4 capsules Three times a day Taking Ursodiol 500 MG Tablet Oral Taking Morphine Sulfate 15 MG Tablet Oral Taking Lidocaine 5 % Patch External Taking Pregabalin 50 MG Capsule TAKE 1 CAPSULE BY MOUTH FIVE TIMES DAILY Oral DiscontinuedMorphine Sulf Microinfusion PF 500 MG/20ML (25 MG/ML) Solution as directed Injection , Notes to Pharmacist: PRNBrilinta 90 MG Tablet TAKE 1 TABLET BY MOUTH TWICE DAILY Oral Symbicort 80-4.5 MCG/ACT Aerosol Inhalation Claritin 10 MG Tablet 1 tablet Orally Once a day Mirena 20 MCG/24HR Intrauterine Device Intrauterine , Notes to Pharmacist: Inserted 2014traZODone HCl , Notes to Pharmacist: prnProAir HFA 108 (90 Base) MCG/ACT Aerosol Solution 2 puffs as needed Inhalation every 4 hrs Cipro 500 MG Tablet 1 tablet Orally Twice a day Medication List reviewed and reconciled with the patientDiscontinued Morphine Sulf Microinfusion PF 500 MG/20ML (25 MG/ML) Solution as directed Injection , Notes to Pharmacist: PRNDiscontinued Brilinta 90 MG Tablet TAKE 1 TABLET BY MOUTH TWICE DAILY Oral Discontinued Symbicort 80-4.5 MCG/ACT Aerosol Inhalation Discontinued Claritin 10 MG Tablet 1 tablet Orally Once a day Discontinued Mirena 20 MCG/24HR Intrauterine Device Intrauterine , Notes to Pharmacist: Inserted 2014Discontinued traZODone HCl , Notes to Pharmacist: prnDiscontinued ProAir HFA 108 (90 Base) MCG/ACT Aerosol Solution 2 puffs as needed Inhalation every 4 hrs Discontinued Cipro 500 MG Tablet 1 tablet Orally Twice a day Medication List reviewed and reconciled with the patient * Allergies:?Vicodin: Hives - AllergyPercocet: Hives - AllergyOxycodone HCl: Hives - AllergyBactrim DS: Hives - AllergyGastrografinno[Allergies Verified] Objective: * Vitals:?Ht: 63 in, Wt:231lbs , BMI:40.92Index, BP:108/70mm Hg, Temp:97.8F. * Examination: ???General Exam: ?CONSTITUTIONAL:?NECK/THYROID:?RESPIRATORY:?Auscultation: clear to auscultation bilaterally, Respiratory Effort: normal.?CARDIOVASCULAR:?Auscultation: regular rate and rhythm.?BREAST, Right:?BREAST, Left:?GASTROINTESTINAL:?MUSCULOSKELETAL:?SKIN:?NEURO/PSYCH:?Genitourinary: ?EXTERNAL GENITALIA:?VAGINA:?BLADDER:?URETHRA:?CERVIX:?UTERUS:?ADNEXA:?ANUS AND PERINEUM:? Assessment: * Assessment: 1.?Encounter for gynecologic al examination (general) (routine) without abnormal findings - Z01.419???2.?Encounter for screening mammogram for malignant neoplasm of breast - Z12.31???3.?Personal history of Hodgkin lymphoma - Z85.71???4. 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 Plan: * Treatment: ? Value Reference Range ?PH 5.0 * ?PROTEIN NEG * ?GLUCOSE MOD * ?BLOOD NEG Notes: NO PAP TEST, DUE IN 2025.??2.?Encounter for screening mammogram for malignant neoplasm of breast?Imaging: MM Digital Mammo Screening Notes: REGULAR MAMMOGRAMS AND SBE'S WERE RECOMMENDED.??3.?Personal history of Hodgkin lymphoma? Notes: SHANNAN HAS HAD RADIATION TREATMENTS, WITH POSSIBLE RECURRENCE ON HER LUNG. REFERRED PAT TO [facility] FOR FURTHER EVALUATION AND MX.??4.?Cardiomyopathy due to drug and external agent? Notes: DISCUSSED CHF AND CARDIOMYOPATHY DUE TO RADIATION EXPOSURE. ADVISED PAT TO SEED TX AT [facility]. THEY HAVE AN ONCOLOGY-CARDIOLOGY SECTION.??5.?Dense breasts, unspecified? Notes: DISCUSSED DENSE BREASTS ON MAMMOGRAM AND ITS IMPLICATIONS. 3D MAMMOGRAMS WERE RECOMMENDED.?? * Procedure Codes:? * Preventive Medicine:? ??YOUR PREVENTIVE WELLNESS PLAN:?Osteoporosis prevention?Calcium, D, strength training.?Breast Cancer Screening (Mammogram):?annually.?Cervical Cancer Screening (Pap Smear):?q 3 years with HPV screen.?Colorectal Cancer Screening:?q 10 years.? * Follow Up:?1 Year * Images: Billing Information: * Visit Code:? 59673 Preventive Care New Pt. Age 40-64. 21599 Preventive Care Est Pt. Age 40-64. * Procedure Codes:? * Sign off status: Completed true * Appointment Provider:?Tessa Dawson M.D. Date:?02/22/2024 Generated for Corby gonzalez/Jose/eTransmitting on:?04/22/2024 11:37 AM EST History and Physical Notes * HPI (History of Present Illness) Category Sub-Category Detail Notes Category Not es New/Follow-up Patient Consult MIRENA IUD WAS INSERTED IN 2014 TO CONTROL MENORRHAGIA AND REMOVED IN 2022 WHEN HORMONE EVALUATION CONFIRMED MENOPAUSE. NO BLEEDING. SHE IS AND USES LUBRICANTS FOR DYSPAREUNIA. SHE HAS A HX OF HODGKIN'S LYMPHOMA IN HER 20'S. PET SCAN DONE AT [facility] SHOWED LESIONS IN THE LEFT INGUINAL AREA AND LEFT UPPER LUNG LOBE. SHE UNDERWENT THORACOTOMY AT [facility] THIS SUMMER BUT THE MASS WAS NOT COMPLETELY EXCISED. PATHOLOGY REPORT SHOWED BENIGN FINDINGS. SHE HAD RADIATION THERAPY ACROSS HER CHEST IN HER 20'S FOR LYMPHOMA AND NOW HAS S/SX OF CHF. SHE IS OFTEN SHORT OF BREATH AND CAN NOT PERFORM HER NORMAL ACTIVITIES. 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 SHE WANTS TO CONSULT PROGRAMS PROVIDING EVALUATION AND MX OF CARDIAC COMPLICATIONS FROM RADIATION. HER LAST MAMMOGRAM DONE IN SEPTEMBER 2023 SHOWED BREASTS ARE NOT DENSE AND WAS NORMAL. HER MAMMOGRAMS WERE DENSE IN THE PAST WITH BREAST CA RISK OF 13%. HER LAST PAP TEST IN 2022 WAS NEGATIVE AND HPV NEGATIVE. SHE HAS NO HX OF ABNORMAL PAP TESTS. SHE HAD A COLONOSCOPY DONE IN 2021. Fridge X 4. Annual General Health Maintenance: Current breast complaints:: no breast pain, mass, discharge, or skin changes Urinary problems:: patient salvador watson no urinary health problems or bowel health problems Calcium intake:: takes adequ ate calcium via diet and supplementation Significant SUPERINTENDENT COMMUNICATIONS problems:: n o significant cardiographer symptoms or problems Examination Category Sub-Category Detail Notes Category Not es General Exam CONSTITUTIONAL: General Appearan ce:: alert, in no acute distress, normal, well nourished NECK/THYROID: Thyroid:: normal size and shape Inspection/Palpation:: normal RESPIRATORY: Auscultation: clear to auscultation bilaterally, Respiratory Effort: normal CARDIOVASCULAR: Auscultation: regula r rate and rhythm GASTROINTESTINAL: Hernias:: no hernias present, no inguinal adenopathy Liver and Spleen:: normal Abdomen:: no masses, nontender, nondiste nded MUSCULOSKELETAL: Inspection/Palpation:: no clubb ing, cyanosis, or edema SKIN: Skin:: normal NEURO/PSYCH: Mood/Affect:: normal Orientation:: time , place, person BREAST, Right: Inspection/Palpation :: no discharge, no masses present, no nipple retraction, no skin changes, no skin dimpling, no tenderness, no lymphadenopathy, no axillary mass, no axillary tenderness BREAST, Left: Inspection/Palpation :: no discharge, no masses present, no nipple retraction, no skin changes, no skin dimpling, no tenderness, no lymphadenopathy, no axillary mass, no axillary tenderness Genitourinary EXTERNAL GENITALIA: External Genitalia:: nor mal, no lesions VAGINA: Vagina:: normal appearance, no a bnormal discharge, no lesions BLADDER: Bladder:: no mass, nontender URETHRA: Urethra:: no erythema or lesions present CERVIX: Cervix:: no lesions, nontender UTERUS: Uterus:: nontender, normal conto ur, normal mobility, normal size ADNEXA: Adnexa:: no masses, no tendernes s ANUS AND PERINEUM: Anus/Perineum:: visually norm al
--- OUTSIDE RECORDS SUMMARY | 2024-04-22 11:37 | XMS_ITS | Clinical Summary ---
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 Active albuterol HFA (PROAIR HFA ; PROVENTIL HFA ; VENTOLIN HFA) 90 mcg/actuation inhaler Inhale 2 puffs by mouth every 4 (four) hours if needed for wheezing or shortness of breath. 4 Active atorvastatin (LIPITOR) 40 mg tablet Take 1 tablet (40 mg total) by mouth 1 (one) time each day. 3 Active Trelegy Ellipta 100-62.5-25 mcg inhaler Inhale 1 puff (100 mcg total) by mouth 1 (one) time each day. 4 Active LevoxyL 125 mcg tablet Take 1 tablet (125 mcg total) by mouth 1 (one) time each day. Active lidocaine (LIDODERM) 5 % patch Apply 1 patch topically 1 (one) time each day. Active LORazepam (ATIVAN) 0.5 mg tablet Take 1 tablet (0.5 mg total) by mouth 2 (two) times a day if needed for anxiety. 4 Active mesalamine (APRISO) 0.375 gram 24 hr capsule Take 4 capsules (1.5 g total) by mouth 1 (one) time each day in the morning. 3 Active nortriptyline (PAMELOR) 10 mg capsule Take 1 capsule (10 mg total) by mouth at bedtime. at bedtime Active pantoprazole (PROTONIX) 40 mg EC tablet Take 1 tablet (40 mg total) by mouth 1 (one) time each day before breakfast. 3 Active pregabalin (LYRICA) 25 mg capsule Take 2 capsules (50 mg total) by mouth 5 (five) times a day. 4 Active sertraline (ZOLOFT) 25 mg tablet Take 1 tablet (25 mg total) by mouth 1 (one) time each day. Take with Sertraline 100mg for total of 125mg daily. Active sertraline (ZOLOFT) 100 mg tablet Take 1 tablet (100 mg total) by mouth 1 (one) time each day. Take with 25mg sertraline for total of 125mg daily 4 Active ursodioL (ACTIGALL) 500 mg tablet Take 1 tablet (500 mg total) by mouth 2 (two) times a day. Active Active Problems Problem Noted Date Diagnosed Date Aspiration pneumonia of righ t middle lobe, unspecified aspiration pneumonia type 03/03/2024 Encounters Date Type Department Care Team Description 04/05/2024 Lab Requisition [facility] Main Lab [address] [place] [address] Darien Smith MD Anemia, unspecified 03/29/2024 Lab Requisition [facility] Lab [address] [place] [phone] Darien Smith MD Anemia, unspecified 03/22/2024 Lab Requisition [facility] Lab [address] [place] [phone] Darien Smith MD Anemia, unspecified 03/18/2024 Lab Requisition [facility] Lab [address] [place] [phone] Darien Smith MD Anemia, unspecified 03/03/2024 8:51 AM EST - 03/08/2024 6:44 PM EST Hospital Encounter [facility] Unit [address] [place] [address] Jae Chavarria, Ryan Ag, Azar Arizmendi MD Seralathan, Manikandan, MD Aspiration pneumonia of right middle lobe, unspecified aspiration pneumonia type (CMS/HCC) (Primary Dx); Aspiration pneumonia of right upper lobe, unspecified aspiration pneumonia type (CMS/HCC); Respiratory failure with hypoxia, unspecified chronicity (CMS/HCC) Discharge Disposition: Custodial Facility 03/01/2024 8:10 AM EST - 03/01/2024 11:59 PM EST Hospital Encounter [facility] PET Scan [address] [place] [id number] Pleural plaque without asbestos Discharge Disposition: Home or Self Care from Last 3 Months Medical History Medical History Date Comments Hodgkin's lymphoma (CMS/HCC) wit h radiation GERD (gastroesophageal reflux disease) History of heart artery stent Radiation induced cardiomyopathy (CMS/HCC) Depression H/O gastric sleeve Delivery by emergency section x 2 Miscarriage at 8 to 28 weeks gestation H/O ankle fusion x3 Family History Medical History Relation Name Comments Autism Daughter Cerebral palsy Daughter Malignant polyp Father valve replaced Father Colon cancer Mother Pancreatic cancer Paternal Grandfather Breast cancer Paternal Grandmother Breast cancer Sister half sister (f athers side) T1DM Son Relation Name Status Comments Daughter Alive Father Alive Mother Paternal Grandfather Paternal Grandmother Sister Alive Son Alive Social History Tobacco Use Types Packs/Day Years Used Date Smoking Tobacco: Never Smokeless Tobacco: Never Tobacco Cessation:Counseling Given: Not Answered Alcohol Use Standard Drinks/Week Comments Never 0 [...] for your loved ones. For example, child nurse or elderly care for an older adult? [...] Orientation Straight 03/03/2024 11 :33 AM EST Obstetrics History Para Term AB IAB SAB Ectopic Multiple Livin g Live Births 1 1 2 2 Date Outcome GA Total Labor Labor/2nd/3rd Weight Sex Type Anes PTL Frannie A1 A5 Name Clin AB Last Filed Vital Signs Vital Sign Reading Time Taken Comments Blood Pressure 138/59 03/08/2024 3:19 PM EST Pulse 83 03/08/2024 3:19 PM EST Temperature 37.1 ??C (98.8 ??F) 03/08/2024 3:19 PM ES T Respiratory Rate 18 03/08/2024 3:19 PM EST Oxygen Saturation 95% 03/08/2024 3:19 PM EST Inhaled Oxygen Concentration - - Weight 104 kg (229 lb 4.5 oz) 03/03/2024 11:48 A M EST Height 157.5 cm (5' 2.01 ) 03/03/2024 11:[address] Body Mass Index 41.92 03/03/2024 11:48 AM EST Plan of Treatment Health Maintenance Due Date Last Done Comments Breast Cancer Screening 1965 Hepatitis B Vaccines (1 of 3 - 19+ 3-dose series) 12/29/1986 Cervical Cancer Screening: Pap Smear 12/29/1988 Pneumococcal Vaccine: Pediatrics (0 to 5 Years) and At-Risk Patients (6 to 64 Years) (2 of 2 - PCV) 11/03/2017 11/03/2016 Zoster Vaccines (2 of 2) 12/05/2019 10/10/2019, 04/2019 Influenza Vaccine (#1) 2023 , 12/08/2020, 12/27/2019, Additional history exists Cholesterol Screening (Lipid Panel) 02/29/2024 Colorectal Cancer Screening: Colonoscopy 02/29/2024 Depression Screening 02/29/2024 HIV Screening 02/29/2024 Hepatitis C Screening 02/29/2024 Social Influencers of Health Screening 03/03/2025 03/03/2024 DTaP,Tdap,and Td Vaccines (3 - Td or Tdap) 02/16/2033 02/16/2023, 03/01/2012 MMR Vaccines Aged Out 01/05/2017, 09/30/2016 No lo nger eligible based on patient's age to complete this topic COVID-19 Vaccine Completed 12/26/2023, , 09/08/2021, Additional history exists HIB Vaccines Aged Out No longer eligi ble based on patient's age to complete this topic HPV Vaccines Aged Out No longer eligi ble based on patient's age to complete this topic Hepatitis A Vaccines Aged Out No long er eligible based on patient's age to complete this topic IPV Vaccines Aged Out No longer eligi ble based on patient's age to complete this topic Meningococcal ACWY Vaccine Aged Out N o longer eligible based on patient's age to complete this topic RSV Immunization Patients Under 20 months Aged Out No longer eligible based on patient's age to complete this topic Varicella Vaccines Aged Out No longer eligible based on patient's age to complete this topic Procedures Procedure Name Priority Date/Time Associated Diagnosis Comments BASIC METABOLIC PANEL Routine 03/30/2024 5:10 AM EST Anemia, unspecified COMPLETE BLOOD COUNT Routine 03/30/2024 5:10 AM EST Anemia, unspecified BASIC METABOLIC PANEL Routine 03/23/2024 4:56 AM EST Anemia, unspecified COMPLETE BLOOD COUNT Routine 03/23/2024 4:56 AM EST Anemia, unspecified THYROXINE FREE Routine 03/18/2024 6:30 AM EST Anemia, unspecified THYROID STIMULATING HORMONE Routine 03/18/2024 6:30 AM EST Anemia, unspecified COMPREHENSIVE METABOLIC PANEL Routine 03/18/2024 6:30 AM EST Anemia, unspecified COMPLETE BLOOD COUNT Routine 03/18/2024 6:30 AM EST Anemia, unspecified CBC WITH AUTO DIFFERENTIAL Routine 03/08/2024 9:29 AM EST CBC AND DIFFERENTIAL Routine 03/08/2024 9:29 AM EST BASIC METABOLIC PANEL Routine 03/08/2024 9:29 AM EST MAGNESIUM Routine 03/08/2024 9:29 AM EST PHOSPHORUS Routine 03/08/2024 9:29 AM EST CBC WITH AUTO DIFFERENTIAL Routine 03/07/2024 8:35 AM EST CBC AND DIFFERENTIAL Routine 03/07/2024 8:35 AM EST BASIC METABOLIC PANEL Routine 03/07/2024 8:35 AM EST MAGNESIUM Routine 03/07/2024 8:35 AM EST PHOSPHORUS Routine 03/07/2024 8:35 AM EST XR CHEST 1 VIEW Routine 03/07/2024 8:31 AM EST OXYGEN THERAPY, ADULT Routine 03/07/2024 8:01 AM EST OXYGEN THERAPY, ADULT Routine 03/06/2024 8:00 PM EST OXYGEN THERAPY, ADULT Routine 03/06/2024 8:01 AM EST OXYGEN THERAPY, ADULT Routine 03/05/2024 8:01 PM EST LEGIONELLA ANTIGEN URINE, EIA Routine 03/05/2024 5:27 PM EST OXYGEN THERAPY, ADULT Routine 03/05/2024 8:01 AM EST MANUAL DIFFERENTIAL - SYSMEX WAM Routine 03/05/2024 4:00 AM EST CBC WITH AUTO DIFFERENTIAL Routine 03/05/2024 4:00 AM EST CBC AND DIFFERENTIAL Routine 03/05/2024 4:00 AM EST PROCALCITONIN Routine 03/05/2024 4:00 AM EST PHOSPHORUS Routine 03/05/2024 4:00 AM EST MAGNESIUM Routine 03/05/2024 4:00 AM EST CALCIUM, IONIZED Routine 03/05/2024 4:00 AM EST BASIC METABOLIC PANEL Routine 03/05/2024 4:00 AM EST OXYGEN THERAPY, ADULT Routine 03/04/2024 1:15 PM EST OXYGEN THERAPY, ADULT Routine 03/04/2024 1:15 PM EST XR CHEST 1 VIEW STAT 03/04/2024 5:56 AM EST LT BLUE - NA CITRATE Routine 03/04/2024 5:06 AM EST EXTRA TUBES Routine 03/04/2024 5:06 AM EST MANUAL DIFFERENTIAL - SYSMEX WAM Routine 03/04/2024 5:04 AM EST CBC WITH AUTO DIFFERENTIAL Routine 03/04/2024 5:04 AM EST CBC AND DIFFERENTIAL Routine 03/04/2024 5:04 AM EST PROCALCITONIN Routine 03/04/2024 5:04 AM EST PHOSPHORUS Routine 03/04/2024 5:04 AM EST MAGNESIUM Routine 03/04/2024 5:04 AM EST CALCIUM, IONIZED Routine 03/04/2024 5:04 AM EST BASIC METABOLIC PANEL Routine 03/04/2024 5:[address] CHEST/ABDOMEN/PELVIS WO CONTRAST Routine 03/03/2024 9:37 PM EST CULTURE SPUTUM Routine 03/03/2024 5:54 PM EST MRSA PCR Routine 03/03/2024 5:54 PM EST LACTATE Routine 03/03/2024 3:07 PM EST RESPIRATORY VIRUS PANEL MOLECULAR STUDY STAT 03/03/2024 11:52 AM EST PROCALCITONIN Routine 03/03/2024 11:26 AM EST PHOSPHORUS Routine 03/03/2024 11:26 AM EST MAGNESIUM Routine 03/03/2024 11:26 AM EST CALCIUM, IONIZED Routine 03/03/2024 11:2 6 AM EST TROPONIN I HIGH SENSITIVITY STAT 03/03/2024 10:27 AM EST CULTURE BLOOD STAT 03/03/2024 9:56 AM EST OXYGEN THERAPY, ADULT Routine 03/03/2024 9:55 AM EST OXYGEN THERAPY, ADULT Routine 03/03/2024 9:55 AM EST OXYGEN THERAPY, ADULT Routine 03/03/2024 9:53 AM EST OXYGEN THERAPY, ADULT Routine 03/03/2024 9:53 AM EST OXYGEN THERAPY, ADULT Routine 03/03/2024 9:53 AM EST LACTATE STAT 03/03/2024 9:35 AM EST CBC WITH AUTO DIFFERENTIAL STAT 03/03/2024 9:35 AM EST CBC AND DIFFERENTIAL STAT 03/03/2024 9:35 AM EST CULTURE BLOOD STAT 03/03/2024 9:35 AM EST XR CHEST 1 VIEW STAT 03/03/2024 9:22 AM EST THYROID STIMULATING HORMONE Add-On 03/03/2024 9:22 AM EST ACTIVATED PARTIAL THROMBOPLASTIN TIME STAT 03/03/2024 9:22 AM EST PROTHROMBIN TIME WITH INR STAT 03/03/2024 9:22 AM EST VENOUS BLOOD GAS STAT 03/03/2024 9:22 AM EST TROPONIN I HIGH SENSITIVITY STAT 03/03/2024 9:22 AM EST HEPATIC FUNCTION PANEL STAT 9:22 AM EST B-TYPE NATRIURETIC PEPTIDE STAT 03/03/2024 9:22 AM EST BASIC METABOLIC PANEL STAT 03/03/2024 9:22 AM EST ECG 12-LEAD STAT 03/03/2024 9:11 AM EST UT CRITICAL CARE 30-74 MINUTES Routine 03/03/2024 8:47 AM EST ECG ANNOTATED 03/03/[address] SKULL TO MID THIGH INITIAL Routine 03/01/2024 9:48 AM EST Pleural plaque without asbestos from Last 3 Months Results * (ABNORMAL) Complete blood count (03/30/2024 5:10 AM EST) Only the most recent of3 resultswithin the time period is included. WBC 6.8 4.8 - 10.8 K/mcL LAB HEMETOLOGY METHOD 03/30/2024 11:54 AM [facility] LAB RBC 3.60(L) 3.80 - 4.80 M/mcL LAB HEMETOLOGY METHOD 03/30/2024 11:54 AM [facility] LAB Hemoglobin 10.2(L) 11.5 - 16.0 g/dL LAB HEMETOLOGY METHOD 03/30/2024 11:54 AM [facility] LAB Hematocrit 33.9(L) 35.0 - 47.0 % LAB HEMETOLOGY METHOD 03/30/2024 11:54 AM [facility] LAB MCV 93.1 79.0 - 98.0 FL LAB HEMETOLOGY METHOD 03/30/2024 11:54 AM [facility] LAB MCH 28.0 27.0 - 32.0 pcg LAB HEMETOLOGY METHOD 03/30/2024 11:54 AM [facility] LAB MCHC 30.1(L) 32.0 - 37.0 g/dL LAB HEMETOLOGY METHOD 03/30/2024 11:54 AM EST [facility] RDW 15.9(H) 11.0 - 15.0 % LAB HEMETOLOGY METHOD 03/30/2024 11:54 AM [facility] LAB Platelets 193 130 - 400 K/mcL LAB HEMETOLOGY METHOD 03/30/2024 11:54 AM EST [facility] LAB MPV 12.1(H) 7.0 - 11.0 FL LAB HEMETOLOGY METHOD 03/30/2024 11:54 AM EST [facility] NRBC 0.0 <1.0 % [facility] 03/30/[facility]24 11:54 AM [facility] NRBC Absolute 0.00 <0.10 K/mcL LAB HEMETOLOGY METHOD 03/30/2024 11:54 AM [facility] Blood Venous blood specimen / Unknown Venipuncture / Unknown 03/30/2024 5:10 AM EST 03/30/2024 10:53 AM EST us Darien Smith MD LAB BLOOD ORDERABLES Final Resul t [facility] [address] [place] [address], * (ABNORMAL) Basic metabolic panel (03/30/2024 5:10 AM EST) Only the most recent of7 resultswithin the time period is included. Sodium 143 133 - 145 mmol/L LAB CHEMISTRY METHOD 03/30/2024 11:55 AM EST [facility] Potassium 4.7 3.5 - 5.5 mmol/L LAB CHEMISTRY METHOD 03/30/2024 11:55 AM EST [facility] LAB Comment:Hemolysis present Chloride 112(H) 96 - 110 mmol/L LAB CHEMISTRY METHOD 03/30/2024 11:55 AM [facility] CO2 26 21 - 32 mmol/L LAB CHEMISTRY METHOD 03/30/2024 11:55 AM [facility] Anion Gap 5 3 - 11 LAB CHEMISTRY METHOD 03/30/2024 11:55 AM [facility] Glucose 70 70 - 100 mg/dL LAB CHEMISTRY METHOD 03/30/2024 11:55 AM [facility] BUN 7 5 - 25 mg/dL LAB CHEMISTRY METHOD 03/30/2024 11:55 AM [facility] Creatinine 0.46(L) 0.50 - 1.10 mg/dL LAB CHEMISTRY METHOD 03/30/2024 11:55 AM [facility] LAB eGFR 112 >=60 mL/min/1. 73m2 LAB CHEMISTRY METHOD 03/30/2024 11:55 AM [facility] LAB Comment:Calculation based on the??Chronic Kidney Disease Epidemiology Collaboration (CKD-EPI) equation refit??without adjustment for race. BUN/Creatinine Ratio 15.2 LAB CHEMISTRY METHOD 03/30/2024 11:55 AM [facility] Calcium 8.7 8.5 - 10.5 mg/dL LAB CHEMISTRY METHOD 03/30/2024 11:55 AM [facility] Blood Venous blood specimen / Unknown Venipuncture / Unknown 03/30/2024 5:10 AM EST 03/30/2024 10:53 AM EST us Darien Smith MD LAB BLOOD ORDERABLES Final Resul t [facility] [address] [place] [address], * (ABNORMAL) Thyroid stimulating hormone (03/18/2024 6:30 AM EST) Only the most recent of2 resultswithin the time period is included. TSH 5.29(H) 0.40 - 4.00 mcIU/mL LAB CHEMISTRY METHOD 03/18/2024 12:02 PM [facility] Blood Venous blood specimen / Unknown Venipuncture / Unknown 03/18/2024 6:30 AM EST 03/18/2024 10:39 AM EST Darien Smith MD LAB BLOOD ORDERABLES Final Resul t Performing Organization Address City/[facility]/ZIP Co de Phone Number [facility] [address] [place] [address], [place] [phone] * Thyroxine free (03/18/2024 6:30 AM EST) Free T4 1.27 0.70 - 1.80 ng/dL LAB CHEMISTRY METHOD 03/18/2024 12:02 PM [facility] Blood Venous blood specimen / Unknown Venipuncture / Unknown 03/18/2024 6:30 AM EST 03/18/2024 10:39 AM EST Darien Smith MD LAB BLOOD ORDERABLES Final Resul t Performing Organization Address [facility] Co de Phone Number [facility] [address] [place] [address], [place] [phone] * (ABNORMAL) Comprehensive metabolic panel (03/18/2024 6:30 AM EST) Sodium 140 133 - 145 mmol/L LAB CHEMISTRY METHOD 03/18/2024 12:01 PM [facility] Potassium 5.5 3.5 - 5.5 mmol/L LAB CHEMISTRY METHOD 03/18/2024 12:01 PM [facility] Chloride 107 96 - 110 mmol/L LAB CHEMISTRY METHOD 03/18/2024 12:01 PM [facility] CO2 26 21 - 32 mmol/L LAB CHEMISTRY METHOD 03/18/2024 12:01 PM [facility] Anion Gap 7 3 - 11 LAB CHEMISTRY METHOD 03/18/2024 12:01 PM [facility] Glucose 75 70 - 100 mg/dL LAB CHEMISTRY METHOD 03/18/2024 12:01 PM [facility] BUN 9 5 - 25 mg/dL LAB CHEMISTRY METHOD 03/18/2024 12:01 PM [facility] Creatinine 0.78 0.50 - 1.10 mg/dL LAB CHEMISTRY METHOD 03/18/2024 12:01 PM [facility] LAB eGFR 89 >=60 mL/min/1. 73m2 LAB CHEMISTRY METHOD 03/18/2024 12:01 PM [facility] Comment:Calculation based on the??Chronic Kidney Disease Epidemiology Collaboration (CKD-EPI) equation refit??without adjustment for race. BUN/Creatinine Ratio 11.5 LAB CHEMISTRY METHOD 03/18/2024 12:01 PM [facility] Calcium 8.6 8.5 - 10.5 mg/dL LAB CHEMISTRY METHOD 03/18/2024 12:01 PM [facility] AST (SGOT) 22 10 - 42 unit/L LAB CHEMISTRY METHOD 03/18/2024 12:01 PM [facility] ALT (SGPT) 14 10 - 60 unit/L LAB CHEMISTRY METHOD 03/18/2024 12:01 PM [facility] Alkaline Phosphatase 136(H) 42 - 121 unit/L LAB CHEMISTRY METHOD 03/18/2024 12:01 PM [facility] Total Protein 5.7(L) 6.0 - 8.0 g/dL LAB CHEMISTRY METHOD 03/18/2024 12:01 PM [facility] Albumin 2.6(L) 3.2 - 5.0 g/dL LAB CHEMISTRY METHOD 03/18/2024 12:01 PM [facility] Total Bilirubin 0.5 0.0 - 1.4 mg/dL LAB CHEMISTRY METHOD 03/18/2024 12:01 PM [facility] Blood Venous blood specimen / Unknown Venipuncture / Unknown 03/18/2024 6:30 AM EST 03/18/2024 10:39 AM EST us Darien Smith MD LAB BLOOD ORDERABLES Final Resul t [facility] [address] [place] [address], * (ABNORMAL) CBC auto differential (03/08/2024 9:29 AM EST) Only the most recent of5 resultswithin the time period is included. WBC 18.9(H) 4.8 - 10.8 K/mcL LAB HEMETOLOGY METHOD 03/08/2024 11:21 AM [facility] RBC 3.40(L) 3.80 - 4.80 M/mcL LAB HEMETOLOGY METHOD 03/08/2024 11:21 AM [facility] Hemoglobin 9.9(L) 11.5 - 16.0 g/dL LAB HEMETOLOGY METHOD 03/08/2024 11:21 AM [facility] LAB Hematocrit 30.6(L) 35.0 - 47.0 % LAB HEMETOLOGY METHOD 03/08/2024 11:21 AM [facility] LAB MCV 89.0 79.0 - 98.0 FL LAB HEMETOLOGY METHOD 03/08/2024 11:21 AM [facility] LAB MCH 28.8 27.0 - 32.0 pcg LAB HEMETOLOGY METHOD 03/08/2024 11:21 AM [facility] LAB MCHC 32.4 32.0 - 37.0 g/dL LAB HEMETOLOGY METHOD 03/08/2024 11:21 AM [facility] LAB RDW 14.6 11.0 - 15.0 % LAB HEMETOLOGY METHOD 03/08/2024 11:21 AM [facility] LAB Platelets 255 130 - 400 K/mcL LAB HEMETOLOGY METHOD 03/08/2024 11:21 AM [facility] LAB MPV 12.1(H) 7.0 - 11.0 FL LAB HEMETOLOGY METHOD 03/08/2024 11:21 AM [facility] LAB NRBC 0.2 <1.0 % LAB HEMETOLOGY METHOD 03/08/2024 11:21 AM [facility] LAB NRBC Absolute 0.04 <0.10 K/mcL LAB HEMETOLOGY METHOD 03/08/2024 11:21 AM [facility] Neutrophils Relative 71.9 % LAB HEMETOLOGY METHOD 03/08/2024 11:21 AM [facility] LAB Comment:This is an appended report. These results have been appended to a previously preliminary verified report. Lymphocytes Relative 10.8 % LAB HEMETOLOGY METHOD 03/08/2024 11:21 AM [facility] LAB Comment:This is an appended report. These results have been appended to a previously preliminary verified report. Monocytes Relative 10.4 % LAB HEMETOLOGY METHOD 03/08/2024 11:21 AM [facility] LAB Comment:This is an appended report. These results have been appended to a previously preliminary verified report. Eosinophils Relative 1.5 % LAB HEMETOLOGY METHOD 03/08/2024 11:21 AM [facility] LAB Comment:This is an appended report. These results have been appended to a previously preliminary verified report. Basophils Relative 0.6 % LAB HEMETOLOGY METHOD 03/08/2024 11:21 AM [facility] LAB Comment:This is an appended report. These results have been appended to a previously preliminary verified report. Immature Granulocytes Relative 4.8 % LAB HEMETOLOGY METHOD 03/08/2024 11:21 AM [facility] LAB Comment:This is an appended report. These results have been appended to a previously preliminary verified report. Neutrophils Absolute 13.56(H) 1.50 - 7.00 K/mcL LAB HEMETOLOGY METHOD 03/08/2024 11:21 AM EST [facility] LAB Comment:This is an appended report. These results have been appended to a previously preliminary verified report. Lymphocytes Absolute 2.03 1.00 - 5.00 K/mcL LAB HEMETOLOGY METHOD 03/08/2024 11:21 AM EST [facility] LAB Comment:This is an appended report. These results have been appended to a previously preliminary verified report. Monocytes Absolute 1.97(H) 0.20 - 1.00 K/[facility] LAB HEMETOLOGY METHOD 03/08/2024 11:21 AM EST [facility] Comment:This is an appended report. These results have been appended to a previously preliminary verified report. Eosinophils Absolute 0.29 0.00 - 0.50 K/mcL LAB [facility] 03/08/2024 11:21 AM EST [facility] Comment:This is an appended report. These results have been appended to a previously preliminary verified report. Basophils Absolute 0.11 0.00 - 0.20 K/[facility] LAB [facility] 03/08/2024 11:21 AM EST [facility] Comment:This is an appended report. These results have been appended to a previously preliminary verified report. Immature Granulocytes Absolute 0.90(H) 0.00 - 0.03 K/[facility] 03/08/2024 11:21 AM EST [facility] Comment:This is an appended report. These results have been appended to a previously preliminary verified report. Blood Venous blood specimen / Unknown Venipuncture / Unknown 03/08/2024 9:29 AM EST 03/08/2024 10:36 AM EST us Catalino Salcedo MD LAB BLOOD ORDERABLES Fi nal Result [facility] [address] [place] [address], [place] [phone] * Phosphorus (03/08/2024 9:29 AM EST) Only the most recent of5 resultswithin the time period is included. Phosphorus 2.8 2.5 - 4.5 mg/dL LAB CHEMISTRY METHOD 03/08/2024 11:09 AM EST [facility] Blood Venous blood specimen / Unknown Venipuncture / Unknown 03/08/2024 9:29 AM EST 03/08/2024 10:35 AM EST us Catalino Salcedo MD LAB BLOOD ORDERABLES Fi nal Result Performing Organization Address [facility] de Phone Number [facility] [address] [place] [address], * Magnesium (03/08/2024 9:29 AM EST) Only the most recent of5 resultswithin the time period is included. Magnesium 2.3 1.9 - 2.6 mg/dL LAB CHEMISTRY METHOD 03/08/2024 11:09 AM EST [facility] Blood Venous blood specimen / Unknown Venipuncture / Unknown 03/08/2024 9:29 AM EST 03/08/2024 10:35 AM EST us Catalino Salcedo MD LAB BLOOD ORDERABLES Fi nal Result Performing Organization Address City/[facility]/ZIP Co de Phone Number [facility] [address] [place] [address], [place] [phone] * XR Chest 1 View (03/07/2024 8:31 AM EST) Only the most recent of3 resultswithin the time period is included. Anatomical Region Laterality Modality Body Radiographic Peri ging 03/07/2024 8:56 AM EST Impressions 03/07/2024 9:04 AM EST Impression: 1. No significant change in residual airspace disease in the right lung. 2. Stable appearance of the left hemithorax, including a small pleural air locule at the apex. Telerad RAINA ([id number]) -------- FINAL REPORT -------- Dictated By: Nayla Thibodeaux Dictated Date: 03/07/2024 08:56 ET Assigned Physician: Nayla Thibodeaux Reviewed and Electronically Signed By: Nayla Thibodeaux Signed Date: 03/07/2024 09:04 ET Workstation ID: [id number] Transcribed By: Self Edit Transcribed Date: 03/07/2024 09:00 ET Narrative 03/07/2024 9:04 AM EST History: Dyspnea. Comparison: 03/04/24, 03/03/24, 07/09/18, thoracic CT 03/03/24 Findings: Portable AP upright chest at 8:25 AM. The lung volumes remain low. Surgical clips project in the left suprahilar region. Pleural-based opacity in the left hemithorax is without significant change, with a small air locule at the apex, suggesting loculated pneumothorax, less likely parenchymal cavitary lesion. Patchy airspace disease is again seen in the right lung, improved since 03/03/24, similar to the most recent study allowing for differences in positioning. The cardiac silhouette remains normal in size. The mediastinal structures are midline. Multiple surgical clips in the epigastric region are consistent with prior sleeve gastrectomy. Cholecystectomy clips are again seen. Procedure Note Nayla Thibodeaux MD - 03/07/2024 History: Dyspnea. Comparison: 03/04/24, 03/03/24, 07/09/18, thoracic CT 03/03/24 Findings: Portable AP upright chest at 8:25 AM. The lung volumes remain low.Surgical clips project in the left suprahilar region. Pleural-basedopacity in the left hemithorax is without significant change, with a smallair locule at the apex, suggesting loculated pneumothorax, less likelyparenchymal cavitary lesion. Patchy airspace disease is again seen in the right lung, improved since03/03/24, similar to the most recent study allowing for differences inpositioning. The cardiac silhouette remains normal in size. Themediastinal structures are midline. Multiple surgical clips in the epigastric region are consistent with priorsleeve gastrectomy. Cholecystectomy clips are again seen. IMPRESSION: Impression: 1. No significant change in residual airspace disease in the right lung. 2. Stable appearance of the left hemithorax, including a small pleural airlocule at the apex. Telerad RAINA ([id number]) -------- FINAL REPORT -------- Dictated By: Nayla Thibodeaux Dictated Date: 03/07/2024 08:56 ET Assigned Physician: Nayla Thibodeaux Reviewed and Electronically Signed By: Nayla Thibodeaux Signed Date: 03/07/2024 09:04 ET Workstation ID: [id number] Transcribed By: Self Edit Transcribed Date: 03/07/2024 09:00 ET us Catalino Salcedo MD IMG XR PROCEDURES Final Result * Legionella antigen urine, EIA (03/05/2024 5:27 PM EST) Legionella Antigen, Ur Negative Negative 03/05/2024 6:02 PM EST [facility] Urine Urine specimen obtained by clean catch procedure / Unknown Non-blood Collection / Unknown 03/05/2024 5:27 PM EST 03/05/2024 5:36 PM EST Narrative [facility] - 03/05/2024 6:02 PM EST Negative for Legionella pneumophilia serogroup 1 antigen. This presumptive result suggests no current or recent infection due to L. pneumophilia serogroup 1. Culture is recommended if Legionella infection is till suspected, as other serogroups and species of Legionella are not detected by this test. us Catalino Salcedo MD LAB URINE ORDERABLES Fi nal Result [facility] [address] [place] [address], [place] [phone] * (ABNORMAL) Manual differential (03/05/2024 4:00 AM EST) Only the most recent of2 resultswithin the time period is included. Neutrophils % 78.0 % LAB HEMETOLOGY METHOD 03/05/2024 5:17 AM [facility] Bands % 2.0 % LAB HEMETOLOGY METHOD 03/05/2024 5:17 AM [facility] Lymphocytes % 11.0 % LAB HEMETOLOGY METHOD 03/05/2024 5:17 AM [facility] Monocytes % 10.0 % LAB HEMETOLOGY METHOD 03/05/2024 5:17 AM [facility] Eosinophils % 0.0 % LAB HEMETOLOGY METHOD 03/05/2024 5:17 AM [facility] Basophils % 0.0 % LAB HEMETOLOGY METHOD 03/05/2024 5:17 AM [facility] Neutrophils Absolute Manual 15.52(H) 1.50 - 7.00 K/mcL LAB HEMETOLOGY METHOD 03/05/2024 5:17 AM [facility] Bands Absolute Manual 0.40(H) 0.00 - 0.00 K/mcL LAB HEMETOLOGY METHOD 03/05/2024 5:17 AM [facility] Lymphocytes Absolute 2.19 1.00 - 5.00 K/mcL LAB HEMETOLOGY METHOD 03/05/2024 5:17 AM [facility] Monocytes Absolute Manual 1.99(H) 0.20 - 1.00 K/mcL LAB HEMETOLOGY METHOD 03/05/2024 5:17 AM [facility] Eosinophils Absolute Manual 0.00 0.00 - 0.50 K/mcL LAB HEMETOLOGY METHOD 03/05/2024 5:17 AM [facility] Basophils Absolute Manual 0.00 0.00 - 0.20 K/mcL LAB HEMETOLOGY METHOD 03/05/2024 5:17 AM [facility] Rbc Morphology Consistent with indices Consistent with indices, Normal for LAB HEMETOLOGY METHOD 03/05/2024 5:17 AM EST [facility] Platelet Morphology - WAM See Note(A) Normal LAB HEMETOLOGY METHOD 03/05/2024 5:17 AM EST [facility] Comment:PLT: Normal Blood Venous blood specimen / Unknown Venipuncture / Unknown 03/05/2024 4:00 AM EST 03/05/2024 4:37 AM EST us Ryan Turner DO LAB BLOOD ORDERABLES Final R esult [facility] [address] [place] [address], * (ABNORMAL) Procalcitonin (03/05/2024 4:00 AM EST) Only the most recent of3 resultswithin the time period is included. Procalcitonin 16.50(H) <=0.16 ng/mL LAB CHEMISTRY METHOD 03/05/2024 8:23 AM EST [facility] Blood Venous blood specimen / Unknown Venipuncture / Unknown 03/05/2024 4:00 AM EST 03/05/2024 4:37 AM EST Narrative [facility] - 03/05/2024 8:23 AM EST Procalcitonin > 2.00 ng/ml: Procalcitonin Levels above 2.00 ng/ml, on the first day of ICU admission represent a high risk for progression to severe sepsis and/or septic shock. Procalcitonin < 0.50 ng/ml: Procalcitonin levels below 0.50 ng/ml on the first day of ICU admission represent a low risk for progression to severe sepsis and/or septic shock. Concentrations <0.5 ng/mL do not exclude an infection, on account of local ized infections (without systemic signs) which can be associated with such low concentrations, or a systemic infection in its initial stages (<6 hours). Furthermore, increased procalcitonin can occur without infection. PCT concentrations between 0.5 and 2.0 ng/mL should be interpreted taking into account the patient's history. It is recommended to retest PCT within 6-24 hours if any concentrations <2.0 ng/mL are obtained. [facility] LAB BLOOD ORDERABLES Final R esult Performing Organization Address [facility] de Phone Number [facility] [address] [place] [address], [place] [phone] * (ABNORMAL) Calcium, ionized (03/05/2024 4:00 AM EST) Only the most recent of3 resultswithin the time period is included. Calcium Ionized 4.35(L) 4.50 - 5.30 mg/dL 03/05/2024 4:53 AM EST [facility] Blood Venous blood specimen / Unknown Venipuncture / Unknown 03/05/2024 4:00 AM EST 03/05/2024 4:37 AM EST [facility] BLOOD ORDERABLES Final R esult Performing Organization Address [facility] Phone Number [facility] [address] [place] [address], [place] [phone] * Light blue tube (03/04/2024 5:06 AM EST) Extra Tube Hold for add-ons. 03/04/2024 7:01 AM EST [facility] Comment:Auto resulted. Blood Venous blood specimen / Unknown 03/04/2024 5:06 AM EST 03/04/2024 5:53 AM EST [facility] LAB BLOOD ORDERABLES Final R esult Performing Organization Address [facility] Co de Phone Number [facility] [address] [place] [address], [place] [phone] * CT Chest/Abdomen/Pelvis wo Contrast (03/03/2024 9:37 PM EST) Anatomical Region Laterality Modality Body Computed Tomogra phy 03/03/2024 11:4 9 PM EST Impressions 03/03/2024 11:49 PM EST Impression: 1. Acute right upper lobe, right middle lobe and right lower lobe consolidation/pneumonia. 2. Chronic partially calcified pleural thickening involved with 2.5 cm cavity in the left upper lobe. This document has been electronically signed by: Floyd Griffith MD on 03/03/2024 23:49:50 Narrative 03/03/2024 11:49 PM EST Chest Abdomen and Pelvis CT without Contrast Comparison: None Findings: CT Chest: Heart size is normal . There is small pericardial effusion or pericardial thickening involving the anterior inferior pericardium. No mediastinal adenopathy. The trachea and esophagus are unremarkable. No large airway obstruction. Aorta and vena cava are normal in diameter No adenopathy There is thickened partially calcified pleural-based plaque in the left upper lobe measuring 10 mm in greatest thickness. A 2.5 cm cavity is present posterior to the apical segment of the left upper lobe. There is consolidation/pneumonia involving the hilum, right upper lobe right lower lobe and right middle lobe. No pleural effusion CT Abdomen: The liver density is homogeneous No biliary abnormalities. Gallbladder is surgically absent. Normal in size spleen No pancreatic ductal dilatation No hydronephrosis . No urinary tract calculi or obstruction. Normal bowel caliber. There has been prior gastric surgery. No signs of appendicitis No free fluid/free air Aorta and vena cava diameters are normal PELVIS: Bladder outline is smooth. Uterus is normal in size. No suspicious skeletal lesions No hernias or abdominal wall soft tissue abnormality Procedure Note Floyd Griffith MD - 03/03/2024 Chest Abdomen and Pelvis CT without Contrast Comparison: None Findings: CT Chest: Heart size is normal . There is small pericardial effusion orpericardial thickening involving the anterior inferior pericardium. No mediastinal adenopathy. The trachea and esophagus are unremarkable. No large airway obstruction. Aorta and vena cava are normal in diameter No adenopathy There is thickened partially calcified pleural-based plaque in the left upper lobe measuring 10 mm in greatest thickness. A 2.5 cm cavity is present posterior to the apical segment of the left upper lobe. There is consolidation/pneumonia involving the hilum, right upper lobe right lower lobe and right middle lobe. No pleural effusion CT Abdomen: The liver density is homogeneous No biliary abnormalities. Gallbladder is surgically absent. Normal in size spleen No pancreatic ductal dilatation No hydronephrosis . No urinary tract calculi or obstruction. Normal bowel caliber. There has been prior gastric surgery. No signs of appendicitis No free fluid/free air Aorta and vena cava diameters are normal PELVIS: Bladder outline is smooth. Uterus is normal in size. No suspicious skeletal lesions No hernias or abdominal wall soft tissue abnormality IMPRESSION: Impression: 1. Acute right upper lobe, right middle lobe and right lower lobe consolidation/pneumonia. 2. Chronic partially calcified pleural thickening involved with 2.5 cm cavity in the left upper lobe. This document has been electronically signed by: Floyd Griffith MD on 03/03/2024 23:49:50 Ryan Turner DO IMG CT PROCEDURES Final Resu lt * (ABNORMAL) Culture sputum (03/03/2024 5:54 PM EST) Culture, Sputum Sophy albicans/dubliniens is(A) ANDREEA 03/06/2024 10:54 AM [facility] Comment: The organism value for this result has been updated. These results have been appended to the previously preliminary verified report. Edited result: Previously reported as Yeast on 03/06/2024 at 1003 EST. Culture, Sputum Methicillin-Sensiti ve Staphylococcus aureus(A) ANDREEA 03/06/2024 10:54 AM EST [facility] Comment: Negative for PBP2a - indicates susceptible to Oxacillin The organism value for this result has been updated. These results have been appended to the previously preliminary verified report. Edited result: Previously reported as Staphylococcus aureus on 03/05/2024 at 1221 EST. Gram Stain Result Many Polymorphonuclear leukocytes(A) 03/06/2024 10:54 AM [facility] Gram Stain Result Moderate Gram positive cocci in pairs(A) 03/06/2024 10:54 AM [facility] Gram Stain Result No epithelial cells seen(A) 03/06/2024 10:54 AM EST [facility] Gram Stain Result Greater than 25 WBCS and less than 10 Epithelial cells - Acceptable for Culture(A) 03/06/2024 10:54 AM EST [facility] Coughed sputum specimen (specimen) Non-blood Collection / Unknown 03/03/2024 5:54 PM EST 03/03/2024 6:13 PM EST Narrative Organism Antibiotic Method Susceptibility Methicillin-Sensitive Staphylococcus aureus Benzylpenicillin ANDREEA >=0.5 ug/ml: Resistant Methicillin-Sensitive Staphylococcus aureus Oxacillin ANDREEA <=0.25 ug/ml: Susceptible Methicillin-Sensitive Staphylococcus aureus Gentamicin ANDREEA <=0.5 ug/ml: Susceptible Methicillin-Sensitive Staphylococcus aureus Ciprofloxacin ANDREEA <=0.5 ug/ml: Susceptible Methicillin-Sensitive Staphylococcus aureus Levofloxacin ANDREEA 0.25 ug/ml: Susceptible Methicillin-Sensitive Staphylococcus aureus Moxifloxacin ANDREEA <=0.25 ug/ml: Susceptible Methicillin-Sensitive Staphylococcus aureus Erythromycin ANDREEA <=0.25 ug/ml: Susceptible Methicillin-Sensitive Staphylococcus aureus Clindamycin ANDREEA <=0.25 ug/ml: Susceptible Methicillin-Sensitive Staphylococcus aureus Quinupristin/Dalfopristin ANDREEA <=0.25 ug/ml: Susceptible Methicillin-Sensitive Staphylococcus aureus Linezolid ANDREEA 2 ug/ml: Susceptible Methicillin-Sensitive Staphylococcus aureus Vancomycin ANDREEA <=0.5 ug/ml: Susceptible Methicillin-Sensitive Staphylococcus aureus Tetracycline ANDREEA <=1 ug/ml: Susceptible Methicillin-Sensitive Staphylococcus aureus Rifampin ANDREEA <=0.5 ug/ml: Susceptible Methicillin-Sensitive Staphylococcus aureus Trimethoprim/Sulfamethoxazo le ANDREEA <=10 ug/ml: Susceptible Ryan Turner DO LAB MICROBIOLOGY - GENERAL O RDERABLES Final Result [facility] [address] [place] [address], * MRSA molecular study (03/03/2024 5:54 PM EST) [facility] MRSA Screen PCR Not Detected Not Detected LAB MICROBIOLOGY METHOD 03/03/2024 7:36 PM EST [facility] Swab Both anterior nares / Unknown Non-blood Collection / Unknown 03/03/2024 5:54 PM EST 03/03/2024 6:13 PM EST Ryan Turner DO LAB MICROBIOLOGY - GENERAL O RDERABLES Final Result Performing Organization Address [facility]/ZIP Co de Phone Number [facility] [address] [place] [address], [place] [phone] * Lactate (03/03/2024 3:07 PM EST) Only the most recent of2 resultswithin the time period is included. [facility] Lactate 2.0 0.4 - 2.0 mmol/L LAB CHEMISTRY METHOD 03/03/2024 3:50 PM EST [facility] Blood Venous blood specimen / Unknown Venipuncture / Unknown 03/03/2024 3:07 PM EST 03/03/2024 3:15 PM EST Ryan Turner DO LAB BLOOD ORDERABLES Final R esult Performing Organization Address [facility]/ZIP Co de Phone Number [facility] [address] [place] [address], [place] [phone] * Respiratory virus panel molecular study (03/03/2024 11:52 AM EST) [facility] Adenovirus Detection by PCR Not Detected Not Detected LAB MICROBIOLOGY METHOD 03/03/2024 12:52 PM EST [facility] Influenza A PCR Not Detected Not Detected LAB MICROBIOLOGY METHOD 03/03/2024 12:52 PM EST [facility] Influenza B PCR Not Detected Not Detected LAB MICROBIOLOGY METHOD 03/03/2024 12:52 PM [facility] Coronavirus 229E Not Detected Not Detected LAB MICROBIOLOGY METHOD 03/03/2024 12:52 PM [facility] Coronavirus HKU1 Not Detected Not Detected LAB MICROBIOLOGY METHOD 03/03/2024 12:52 PM EST [facility] Coronavirus OC43 Not Detected Not Detected LAB MICROBIOLOGY METHOD 03/03/2024 12:52 PM [facility] Coronavirus NL63 Not Detected Not Detected LAB MICROBIOLOGY METHOD 03/03/2024 12:52 PM [facility] Parainfluenza Virus 1 Not Detected Not Detected LAB MICROBIOLOGY METHOD 03/03/2024 12:52 PM [facility] Parainfluenza Virus 2 Not Detected Not Detected LAB MICROBIOLOGY METHOD 03/03/2024 12:52 PM [facility] Parainfluenza Virus 3 Not Detected Not Detected LAB MICROBIOLOGY METHOD 03/03/2024 12:52 PM [facility] Parainfluenza Virus 4 Not Detected Not Detected LAB MICROBIOLOGY METHOD 03/03/2024 12:52 PM [facility] RSV PCR Not Detected Not Detected LAB MICROBIOLOGY METHOD 03/03/2024 12:52 PM [facility] Human Metapneumovirus A and B Not Detected Not Detected LAB MICROBIOLOGY METHOD 03/03/2024 12:52 PM [facility] Rhinovirus/Entero virus Not Detected Not Detected LAB MICROBIOLOGY METHOD 03/03/2024 12:52 PM [facility] Bordetella pertussis Not Detected Not Detected LAB MICROBIOLOGY METHOD 03/03/2024 12:52 PM [facility] Bordetella parapertussis Not Detected Not Detected LAB MICROBIOLOGY METHOD 03/03/2024 12:52 PM [facility] Mycoplasma pneumo by PCR Not Detected Not Detected LAB MICROBIOLOGY METHOD 03/03/2024 12:52 PM [facility] Chlamydia pneumoniae Not Detected Not Detected LAB MICROBIOLOGY METHOD 03/03/2024 12:52 PM [facility] SARS COV-2 Not Detected Not Detected LAB MICROBIOLOGY METHOD 03/03/2024 12:52 PM [facility] Swab Both anterior nares / Unknown Non-blood Collection / Unknown 03/03/2024 11:52 AM EST 03/03/2024 11:55 AM EST [facility] - 03/03/2024 12:52 PM EST Testing was performed using the [employer] Respiratory Pathogen PCR Assay. All results must be correlated with the clinical findings. Results should not be used as the sole basis for diagnosis. False Negative results may occur from the presence of sequence variants in the region targeted by the assay or the presence of inhibitors. Results may be affected by concurrent antiviral/antimicrobial therapy or levels of organisms that are below the limit of detection. us Pal Ross MD LAB MICROBIOLOGY - [facility] Final Result Performing Organization Address [facility]/ZIP Co de Phone Number [facility] [address] [place] [address], [place] [phone] * (ABNORMAL) Troponin I high sensitivity (NOW and then in 1 hour) (03/03/2024 10:27 AM EST) Only the most recent of2 resultswithin the time period is included. High Sensitivity Troponin I 97(H) <=54 ng/L LAB CHEMISTRY METHOD 03/03/2024 11:13 AM EST [facility] Blood Venous blood specimen / Unknown Venipuncture / Unknown 03/03/2024 10:27 AM EST 03/03/2024 10:39 AM EST [facility] - 03/03/2024 11:13 AM EST High levels of biotin in samples may falsely decrease hsTroponin values. ??Use caution when interpreting hsTroponin results in patients taking biotin who exhibit renal impairment (eGFR <60) or in patients taking more than 20 mg/day of biotin. us Pal Ross MD LAB BLOOD ORDERABLES Final Resu lt Performing Organization Address [facility]/ZIP Co de Phone Number [facility] [address] [place] [address], [place] [phone] * Blood Culture, Peripheral Draw #2 (03/03/2024 9:56 AM EST) Only the most recent of2 resultswithin the time period is included. Culture, Blood No growth at 5 days 03/08/2024 11:01 AM EST [facility] Blood Venous blood specimen / Unknown Venipuncture / Unknown 03/03/2024 9:56 AM EST 03/03/2024 10:27 AM EST Jae Chavarria DO LAB MICROBIOLOGY - GENERAL ORD ERABLES Final Result [facility] [address] [place] [address], [place] [phone] * APTT (03/03/2024 9:22 AM EST) aPTT 32.4 24.1 - 39.3 sec LAB COAGULATION METHOD 03/03/2024 10:04 AM EST [facility] Blood Venous blood specimen / Unknown Venipuncture / Unknown 03/03/2024 9:22 AM EST 03/03/2024 9:42 AM EST Pal Ross MD LAB BLOOD ORDERABLES Final Resu lt [facility] [address] [place] [address], [place] [phone] * Prothrombin time with INR (03/03/2024 9:22 AM EST) Protime 10.6 10.6 - 13.9 sec LAB COAGULATION METHOD 03/03/2024 10:04 AM EST [facility] INR 0.9 LAB COAGULATION METHOD 03/03/2024 10:04 AM EST [facility] Blood Venous blood specimen / Unknown Venipuncture / Unknown 03/03/2024 9:22 AM EST 03/03/2024 9:42 AM EST Pal Ross MD LAB BLOOD ORDERABLES Final Resu lt [facility] [address] [place] [address], [place] [phone] * B-type natriuretic peptide (03/03/2024 9:22 AM EST) Pathologist [facility] BNP 70 <=100 pcg/mL LAB CHEMISTRY METHOD 03/03/2024 10:14 AM [facility] Blood Venous blood specimen / Unknown Venipuncture / Unknown 03/03/2024 9:22 AM EST 03/03/2024 9:42 AM EST Pal Ross MD LAB BLOOD ORDERABLES Final Resu lt Performing Organization Address [facility]/ZIP Co de Phone Number [facility] [address] [place] [address], [place] [phone] * (ABNORMAL) Venous blood gas (03/03/2024 9:22 AM EST) Pathologist [facility] pH, Ayden 7.34 7.32 - 7.42 pH 03/03/2024 9:47 AM [facility] pCO2, Ayden 43 41 - 51 mmHg 03/03/2024 9:47 AM [facility] pO2, Ayden 36 25 - 40 mmHg 03/03/2024 9:47 AM [facility] HCO3, Venous 21.9(L) 22.0 - 26.0 mmol/L 03/03/2024 9:47 AM [facility] O2 Sat, Ayden 62.4 % 03/03/2024 9:47 AM [facility] Base Excess, Ayden -2.6(L) -2.0 - 2.0 mmol/L 03/03/2024 9:47 AM [facility] Blood Venous blood specimen / Unknown Venipuncture / Unknown 03/03/2024 9:22 AM EST 03/03/2024 9:42 AM EST Pal Jacqueline Ross MD LAB BLOOD ORDERABLES Final Resu lt [facility] [address] [place] [address], [place] [phone] * (ABNORMAL) Hepatic function panel (03/03/2024 9:22 AM EST) Total Protein 6.8 6.0 - 8.0 g/dL LAB CHEMISTRY METHOD 03/03/2024 10:10 AM [facility] Albumin 3.5 3.2 - 5.0 g/dL LAB CHEMISTRY METHOD 03/03/2024 10:10 AM [facility] Total Bilirubin 1.0 0.0 - 1.4 mg/dL LAB CHEMISTRY METHOD 03/03/2024 10:10 AM [facility] Bilirubin, Direct 0.4(H) 0.0 - 0.3 mg/dL LAB CHEMISTRY METHOD 03/03/2024 10:10 AM [facility] Bilirubin, Indirect 0.6 0.0 - 1.1 mg/dL LAB CHEMISTRY METHOD 03/03/2024 10:10 AM [facility] ALT (SGPT) 27 10 - 60 unit/L LAB CHEMISTRY METHOD 03/03/2024 10:10 AM [facility] AST (SGOT) 45(H) 10 - 42 unit/L LAB CHEMISTRY METHOD 03/03/2024 10:10 AM [facility] Alkaline Phosphatase 194(H) 42 - 121 unit/L LAB CHEMISTRY METHOD 03/03/2024 10:10 AM [facility] Blood Venous blood specimen / Unknown Venipuncture / Unknown 03/03/2024 9:22 AM EST 03/03/2024 9:42 AM EST Pal Ross MD LAB BLOOD ORDERABLES Final Resu lt Performing Organization Address [facility] Co de Phone Number [facility] [address] [place] [address], [place] [phone] * ECG 12 lead (03/03/2024 9:11 AM EST) Ventricular Rate ECG 119 BPM GEMUSE Atrial Rate 119 BPM GEMUSE P-R Interval 146 ms GEMUSE QRS Duration 104 ms GEMUSE Q-T Interval 338 ms GEMUSE QTc 475 ms GEMUSE P Wave [place] 40 degrees GEMUSE R [place] -35 degrees GEMUSE T [place] 52 degrees GEMUSE ECG Interpretation Sinus tachycardia Left anterior fascicular block Left ventricular hypertrophy with repolarization abnormality Abnormal ECG No previous ECGs available Confirmed by CECELIA ANDERSON ([id number]) on 03/05/2024 11:01:23 AM GEMUSE 03/03/2024 9:11 AM EST 03/05/2024 11:01 AM EST Jae Chavarria DO ECG ORDERABLES Final Result Performing Organization Address [facility] de Phone Number GEMUSE * [facility] 30-74 MINUTES (03/03/2024 8:47 AM EST) Narrative Jae Chavarria DO - 03/03/2024 8:47 AM EST Jae Chavarria DO ? 03/03/2024 ??6:45 PM Critical Care Performed by: Jae Chavarria DO Authorized by: Jae Chavarria DO ?? Critical care provider statement: ??Critical care time (minutes): ??60 ??Critical care time was exclusive of: ??Separately billable procedures and treating other patients and teaching time ??Critical care was necessary to treat or prevent imminent or life-threatening deterioration of the following conditions: ??Respiratory failure ??Critical care was time spent personally by me on the following activities: ??Blood draw for specimens, development of treatment plan with patient or surrogate, discussions with consultants, evaluation of patient's response to treatment, examination of patient, interpretation of cardiac output measurements, obtaining history from patient or surrogate, ordering and performing treatments and interventions, ordering and review of laboratory studies, ordering and review of radiographic studies, pulse oximetry, re-evaluation of patient's condition and review of old charts ??I assumed direction of critical care for this patient from another provider in my specialty: no ?Care discussed with: admitting provider ?? us Jae Chavarria DO IN CLINIC/BEDSIDE ORDERABLES F inal Result * ECG-Annotated (03/03/2024) us Provider Onbase MD ECG ORDERABLES Final Result * PET CT Skull to Mid Thigh Initial (03/01/2024 9:48 AM EST) Anatomical Region Laterality Modality Body Radiographic Peri ging 03/01/2024 1:31 PM EST Impressions 03/01/2024 1:50 PM EST Moderate FDG activity seen in the left pleura extending from the apex to the anterior pericardial space and mild FDG pleural activity seen in posterior lateral hemithorax. There is no lung parenchymal or mediastinal lymph node FDG activity seen. No distant FDG activity seen either. -------- FINAL REPORT -------- Dictated By: Jordan Pulido Dictated Date: 03/01/2024 13:31 ET Assigned Physician: Jordan Pulido Reviewed and Electronically Signed By: Jordan Pulido Signed Date: 03/01/2024 13:50 ET Workstation ID: [id number] Transcribed By: Self Edit Transcribed Date: 03/01/2024 13:31 ET Narrative 03/01/2024 1:50 PM EST EXAMINATION: PET/CT skull to mid thigh. CLINICAL INDICATION: Pleural plaque without asbestosis. COMPARISON: Chest portable 07/09/2018. Outside PET studies not available for comparison. TECHNIQUE: Following intravenous administration of 13.2 mCi of F-18 FDG in right hand, whole-body PET emission scan was obtained from skull base to mid thigh 46 minutes post injection. 5 mm thin nondiagnostic axial CT transmission scan was obtained without oral or IV contrast for attenuation correction and correlate of imaging. 3-D reformats and color fusion was performed on a separate workstation and available for interpretation. Baseline glucose measures 89 mg/DL. DLP 931 mGy/cm. FINDINGS: Skull base: There is no abnormal metabolic activity seen in the skull base. On CT visualized brain parenchyma appears unremarkable. The paranasal sinuses are normal. NECK: There is no abnormal FDG activity seen in neck. On CT no abnormal neck mass or lymphadenopathy seen. The airways widely patent. Oral cavity is limited in evaluation secondary dental amalgam artifact. The prevertebral soft tissues are normal. CHEST: There is moderate metabolic activity seen along the apical pleura extending anteriorly along the anterior and middle mediastinum to the pericardial space. The left apex has a maximum SUV of 19.5 on axial. Slice 44/3. Mild pleural thickening is seen from the left lung apex in the anterior pericardial space with max SUV 10.46 along the anterior lung adjacent anterior mediastinum on axial PET slice 53/3. Focal FDG activity along noted at the anterior pericardium has a max SUV of 10.46 on axial slice 59/3. There are 2 focal FDG areas of activity along the left posterior pleura on axial PET slice 57/3 with a max SUV of 6.54. There is very subtle pleural activity seen along the lateral lung with a max SUV of 7.84. Findings suggest metabolic active entire left pleural lining likely metastatic. No additional areas of metabolic activity seen. On CT there is a focal left apical pleural thickening with calcification extending along the anterior mediastinum to the left anterior precordial space which is more intense than the pleura along the posterior lateral left hemithorax. On CT there is no parenchyma nodules seen except for minimal scarring or atelectasis left lung base which is metabolically active with a maximum SUV of 4.44. Abdomen and pelvis: There is no abnormal metabolic activity seen in the abdomen or the pelvis. On CT the solid organs are unremarkable. 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 Moderate stool is seen in the colon. The small bowel loops are unremarkable. No radiopaque renal calculi or hydronephrosis. The gallbladder is out. The urinary bladder is nondistended. Osseous structures: No FDG activity seen. Mild DJD. Procedure Note Jordan Pulido MD - 03/01/2024 EXAMINATION: PET/CT skull to mid thigh. CLINICAL INDICATION: Pleural plaque without asbestosis. COMPARISON: Chest portable 07/09/2018. Outside PET studies not available forcomparison. TECHNIQUE: Following intravenous administration of 13.2 mCi of F-18 FDG inright hand, whole-body PET emission scan was obtained from skull base tomid thigh 46 minutes post injection. 5 mm thin nondiagnostic axial CTtransmission scan was obtained without oral or IV contrast for attenuationcorrection and correlate of imaging. 3-D reformats and color fusion wasperformed on a separate workstation and available for interpretation.Baseline glucose measures 89 mg/DL. DLP 931 mGy/cm. FINDINGS: Skull base: There is no abnormal metabolic activity seen in the skullbase. On CT visualized brain parenchyma appears unremarkable. Theparanasal sinuses are normal. NECK: There is no abnormal FDG activity seen in neck. On CT no abnormalneck mass or lymphadenopathy seen. The airways widely patent. Oral cavityis limited in evaluation secondary dental amalgam artifact. Theprevertebral soft tissues are normal. CHEST: There is moderate metabolic activity seen along the apical pleuraextending anteriorly along the anterior and middle mediastinum to thepericardial space. The left apex has a maximum SUV of 19.5 on axial. Slice44/3. Mild pleural thickening is seen from the left lung apex in theanterior pericardial space with max SUV 10.46 along the anterior lungadjacent anterior mediastinum on axial PET slice 53/3. Focal FDG activityalong noted at the anterior pericardium has a max SUV of 10.46 on axialslice 59/3. There are 2 focal FDG areas of activity along the leftposterior pleura on axial PET slice 57/3 with a max SUV of 6.54. There isvery subtle pleural activity seen along the lateral lung with a max SUV of7.84. Findings suggest metabolic active entire left pleural lining likelymetastatic. No additional areas of metabolic activity seen. On CT there makenzie focal left apical pleural thickening with calcification extending alongthe anterior mediastinum to the left anterior precordial space which is more intense than the pleura along the posterior lateralleft hemithorax. On CT there is no parenchyma nodules seen except forminimal scarring or atelectasis left lung base which is metabolicallyactive with a maximum SUV of 4.44. Abdomen and pelvis: There is no abnormal metabolic activity seen in theabdomen or the pelvis. On CT the solid organs are unremarkable. There isevidence of gastric sleeve surgery from previous intervention. Moderatestool is seen in the colon. The small bowel loops are unremarkable. Noradiopaque renal calculi or hydronephrosis. The gallbladder is out. Theurinary bladder is nondistended. Osseous structures: No FDG activity seen. Mild DJD. IMPRESSION: Moderate FDG activity seen in the left pleura extending from the apex tothe anterior pericardial space and mild FDG pleural activity seen inposterior lateral hemithorax. There is no lung parenchymal or mediastinal lymph node FDG activityseen. No distant FDG activity seen either. 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 Do not modify or discontinue any currently active code status orders. Care Teams Computer Systems Software Architect Relationship Specialty Start Date End Date Huong Johnson MD [address] [address] PCP - General Internal Medicine 03/03/24
--- OUTSIDE RECORDS SUMMARY | 2024-04-22 11:37 | XMS_ITS | Continuity of Care Document ---
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 Name Role Phone [facility] OTHER ADRIAN CORDERO Primary Care Provider [phone] Assessment Encounter Date Assessment Date Assessment LastModified by Organization Details LastModified Time 03/30/2024 03/30/2024 Follow up with PCP as planned [email or web address] Not available 03/30/2024 10:16:46 Plan of Treatment Reminders Order Date Submit [...] Time Liver function tests outside reference range 878120671 Active 2024 [facility] [address], [address], [place], [address], [facility] [employer] [facility] 5 07:37:37 Allergic rhinitis 54824899 Active 2024 [facility] [address], [address], [place], [address], [facility] [employer] [facility] 5 07:37:46 Anxiety 93582217 Active 2024 [facility] [address], [address], [place], [address], [facility] [employer] [facility] 5 07:37:54 Asthma 157121616 Active 2024 [facility] [address], [address], [place], [address], [facility] 5 07:38:02 Gastroesophag eal reflux disease 296499890 Active 2024 [facility] [address], [address], [place], [address], [facility] [employer] [facility] 5 07:38:10 History of Hodgkin lymphoma 327160862 Active 2024 [facility] [address], [address], [place], [address], [facility] 5 07:38:45 Migraine 44768427 Active 2024 [facility] [address], [address], [place], [address], [facility] [employer] [facility] 5 07:38:53 Mood disorder 69429026 Active 2024 [facility] [address], [address], [place], [address], [facility] [employer] [facility] 5 07:39:02 Obstructive sleep apnea syndrome 38105388 Active 2024 [facility] [address], [address], [place], [address], [facility] [employer] [facility] 5 07:39:13 Hypothyroidis m 86096407 Active 2024 [facility] [address], [address], [place], [address], [facility] [employer] [facility] 5 07:39:22 Obesity 291416521 Active 2024 [facility] [address], [address], [place], [address], [facility] [employer] 5 07:39:38 Adenomatous polyp of colon 621870878 Active 2024 [facility] [address], [address], [place], [address], [facility] [employer] [facility] 5 07:40:10 Coronary arteriosclero sis 50173880 Active 2024 [facility] [address] [facility], [address], [place], [address], [facility] 5 07:45:49 Acute respiratory failure 48837776 Active 2024 [facility] [address], [address], [place], [address], [facility] 5 07:46:00 Pneumonia 666069491 Active 2024 [facility] [address] [facility], [address], [place], [address], [facility] 5 07:46:08 Pleural effusion 54882826 Active 2024 [facility] [address] [facility], [address], [place], [address], [facility] 5 07:46:27 Atypical chest pain 411254097 Active 2024 [facility] [address] [facility], [address], [place], [address], [facility] 5 08:00:44 Enteritis of intestine 1540627817 Active 2024 [facility] [address] [facility], [address], [place], [address], [facility] 5 08:01:43 Anterior chest wall pain 381364297 Active 2024 Courtney Hilton MD [address] [place] [address], [address], [place], [address], [facility] 5 13:31:52 Ileitis 56715439 Active 2024 Courtney Hilton MD [address] [place] [address], [address], [place], [address], [facility] 5 14:10:16 Insulin resistance 930485431 Active 2024 Courtney Hilton MD [address] [facility], [address], [place], [address], [facility] 5 14:16:36 Anemia 052656990 Active 2024 Courtney Hilton MD [address] [facility], [address], [place], [address], [facility] 14:26:33 Problem Notes None recorded. Medical Equipment None Reported. Allergies Allergen ID Allergen Name Allergen Category Reaction Reaction Severity Criticality Documentation Date Start Date Code Code System Note Provider Name and Address Organization Details Recorded Time 54623 oxycodone medicatio n itching rash Not available Not available high 03/16/20242023 7804 RxNorm Not Available Not Available Not Available 27487 Gastrogra fin medicatio n Not available Not available Not available 03/16/2024 32767 5 RxNorm Not Available Not Available Not Available 44100 Substance with sulfonami de structure and antibacte rial mechanism of action (substanc e) medicatio n Not available Not available Not available 03/16/2024 60861 8003 SNOMED Not Available Not Available Not Available 66088 acetamino phen / oxycodone medicatio n Not available Not available Not available 03/16/2024 43765 3 RxNorm Not Available Not Available Not Available 06115 diatrizoa te meglumine medicatio n Not available Not available Not available 03/17/2024 3320 RxNorm Not Available Not Available Not Available 84695 acetamino phen / hydrocodo ne medicatio n hives Not available high 03/17/20242023 55615 2 RxNorm Not Available Not Available Not Available Vitals None Recorded Social History Question Answer Notes LastModified by Organizat ion Details LastModified Time Tobacco Smoking Status Never Smoker Courtney Hilton MD [address] [facility], [address], [place], [address], [facility] 03/17/2024 12:59:09 Do You Have An [...] 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 Invoked Information not available 03/17/2024 [...] Time Tdap 3 completed Donavon Parsons [facility] 03/17/2024 16:04:28 pneumococcal polysaccharide PPV23 7 completed Donavon Parsons [facility] 03/17/2024 16:04:40 influenza, unspecified formulation 6 completed Donavon Parsons [facility] 03/17/2024 16:04:55 influenza, unspecified formulation 7 completed Donavon Parsons [facility] 03/17/2024 16:04:59 influenza, unspecified formulation 8 completed Donavon Parsons [facility] 03/17/2024 16:05:04 influenza, unspecified formulation 1 completed Donavon Parsons [facility] 03/17/2024 16:05:08 influenza, unspecified formulation 2 completed Donavon Parsons [facility] 03/17/2024 16:05:12 MMRV 7 completed Donavon Parsons null, [facility] 03/17/2024 16:05:27 MMRV 7 completed Donavon Parsons null, [facility] 03/17/2024 16:05:32 SARS-COV-2 (COVID-19) vaccine, UNSPECIFIED 0 completed Donavon Parsons [facility], [facility] 03/17/2024 16:05:44 SARS-COV-2 (COVID-19) vaccine, UNSPECIFIED 1 completed Donavon Parsons [facility], [facility] 03/17/2024 16:05:47 SARS-COV-2 (COVID-19) vaccine, UNSPECIFIED 1 completed Donavon Parsons [facility] 03/17/2024 16:05:52 SARS-COV-2 (COVID-19) vaccine, UNSPECIFIED 2 completed Donavon Issa [facility] 03/17/2024 16:05:56 SARS-COV-2 (COVID-19) vaccine, UNSPECIFIED 2 completed Donavon Issa [facility], [facility] 03/17/2024 16:06:02 SARS-COV-2 (COVID-19) vaccine, UNSPECIFIED 4 completed Donavon Issa [facility], [facility] 03/17/2024 16:06:06 zoster, unspecified formulation 0 completed Donavon Issa [facility] 03/17/2024 16:06:19 Past Encounters Encounter ID Performer Location Encounter Start Date Encounter Closed Date Diagnosis/Indication Diagnosis SNOMED-CT Code Diagnosis ICD10 Code Diagnosis Note [id number] [facility] [address] [place] [address] 03/16/2024 07:35:02 03/17/2024 10:55:49 Coronary arteriosclerosis 53716789 I25.10 Status post KAMRYN to the proximal RCA back in [place] aspirin and atorvastat inmonitor cp Hypothyroidism 48717391 E03.9 Continue levothyrox ine 125 mcg dailymonit or tsh/t4 Gastroesop hageal reflux disease 459388609 K21.9 continue pantoprazo lemonitor ss Migraine 90715996 G43.90 9 w/ auramonito r Anxiety 41082618 F41.9 Continue sertraline , and as needed lorazepamm onitor mood and affectpsyc h prn Atypical chest pain 1025 90114 R07.89 Chronic left chest wall pain after thoracotom yGets scheduled T6, T7, T8 nerve blocks with [place] [facility] [facility] almost monthly.Co ntinue pregabalin and nortriptyl ine Enteritis of intestine 3592307175 K52.9 Continue home mesalamine and ursodiol History of Hodgkin lymphoma 612613313 Z85.71 status post mantle field radiation back in 1992 in remission for many years 4 excisional biopsy of a right groin lymph node, and left upper lung lobe mini thoracotom y after a suspicious PET scan (both biopsies negative for malignancy monitor and f/up with oncology as needed Pleural effusion 6241648 8 J90 history of recurrent left pleural effusions/ pneumothor aces status to thoracente ses (reportedl y negative for malignancy ) and eventually pleurodesi sfollows with pulmshe will sched f/up apt when she is stronger Obstructiv e sleep apnea syndrome 58521269 G47.33 CPAP qhs Obesity 577861437 E66.9 monitor diet and weightsedu cation Mood disorder 85323237 F 39 see depression Asthma 409877417 J45.90 9 mild asthmarece ntly tx for exaccontin ue symbicort and trelegy dailynebz stopped yesterday prior to dcmonitor need to restart Acute resp iratory failure 36529592 J96.00 dt asthma exac and multifocal PNAnow on RAstill sob with exertion, could be dt deconditio ningmonito r resp status Pneumonia 920946788 J18. 9 multifocal PNAmonitor cbc on admit and weeklyrepe at CXR in 6 weeksconti nue augmentin bid (ends 03/16)make f/up with her pulm Liver func tion tests outside reference range 397194387 R94.5 monitor LFTscmp on admit and weekly [id number] Courtney Hilton MD [facility] [address] [place] [address] 03/17/2024 12:00:28 03/18/2024 11:46:19 Coronary arteriosclerosis 48752181 I25.10 Status post KAMRYN to the proximal RCA in 08/2022No recent sxs.Contin ue ASA 81 mg qd and atorvastat in 40 mg qd.Monitor for sxs.F/U with cardio as planned Hypothyroidism 83251480 E03.8 Last TSH 0.48 in 02/2024.In 09/2023 TSH had been low and levothyrox ine changed to 6d/wk, unclear when it got increased again, may have been inpt error.Cont inue levothyrox ine 125 mcg qdWill recheck TSH and FT4 with next labs Gastroesop hageal reflux disease 807185960 K21.9 No current sxs.Contin ue pantoprazo le 40 mg qd.Monitor GI sxs. Migraine 73291525 G43.80 9 Relatively frequent in hx.Follows with neuro.Cont inue Emgality 120 mg monthly and nortriptyl ine 10 mg qhs.Monito r sxs.F/U as planned. Anxiety 52362336 F41.1 Mood good today.Cont inue sertraline 125 mg qd and lorazepam 0.5 mg BID prn.Monito r mood.Consu lt psych prn History of Hodgkin lymphoma 090689973 Z85.71 S/P mantle field radiation back in 1992 in remission for many yearsF/U with oncology prn Pleural effusion 9082968 8 J90 In hx, only minor on this admission. Monitor Obstructiv e sleep apnea syndrome 23979111 G47.33 Improved after gastric bypass surgery, but back on CPAP now.Contin ue CPAP with sleep.F/U with pulmonary. Obesity 398298895 E66.01 Z68.41 As above. Asthma 712806594 J45.40 Almost back to baseline.D /C med list had symbicort and trelegy listed.Pt says symbicort doesn't work, she is on trelegy at home. Actually has a brand new one in her nightstand here.Resta rt trelegy 100/62.5/2 5 mcg qdContinue albuterol q 6 hrs prn.Monito r resp status. Acute resp iratory failure 11158552 J96.01 Due to PNA causing asthma exacerbati on.Now resolved and weaned back to RA.Continu e asthma meds as below.Nadia tor resp status. Pneumonia 427107242 J15. 8 S/P multifocal PNAComplet ed course of abxs with Augmentin 875 mg BID on 03/16.Contin ue asthma meds as below.Very deconditio roberto.Needs PT/OT for strengthen ing, balance, gait training, safety and function.C ontinue fall precaution s.Monitor for safety.Mon itor resp status. Anterior c hest wall pain 137102351 R07.89 Chronic left chest wall pain after thoracotom y.Gets scheduled T6, T7, T8 nerve blocks with [place] [facility] on regular schedule.C ontinue pregabalin 100 mg 5x/d, nortriptyl ine 10 mg qd,and lidocaine patch daily.Didn 't tolerate gabapentin .Monitor sxs and f/u as planned. History of bariatric surgical procedure 269036366 Z98.84 S/P gastric bypass in 2018.Nestor nue ursodiol 500 mg BID.Contin ue to encourage healthy eating and continued wt. loss. Ileitis 08107204 K52.9 Under good control on current regimen.Co ntinue mesalamine 1.5 mg qd.Monitor sxs.F/U with GI as planned. Insulin resistance 37864 5000 E88.810 Sugars mostly WNL inpt, but HgA1C 6.2Encoura ge healthy eating and continued wt. loss.Monit or as outpt. Vitamin D deficiency 347 61297 E56.8 Continue vitamin D 2000 IU qd.Monitor levels prn Anemia 353163458 D64.89 Iron low inpt with high ferritin (likely due to infection) .Will start iron gluconate 324 mg qd. with vitamin C 500 mg qd for absorption .Monitor labs [id number] NETO LIAO NP [facility] [address] [place] [address] 03/24/2024 12:46:00 03/25/2024 13:32:28 Pneumonia 263730365 J15.8 S/P multifocal PNAComplet ed course of abxs with Augmentin 875 mg BID on 03/16.Contin ue asthma meds as below.Very deconditio roberto.Needs PT/OT for strengthen ing, balance, gait training, safety and function.G oal is to return home.Nestor nue fall precaution s.Monitor for safety.Mon itor resp status. Acute resp iratory failure 98911505 J96.01 Due to PNA causing asthma exacerbati on.Now resolved and weaned back to RA.Continu e asthma meds as below.Nadia tor resp status. Pleural effusion 8569766 8 J90 In hx, only minor on this admission. Monitor Asthma 129148658 J45.40 Almost back to baseline.D /C med list had symbicort and trelegy listed.Pt says symbicort doesn't work, she is on trelegy at home. Actually has a brand new one in her nightstand here.Resta rt trelegy 100/62.5/2 5 mcg qdContinue albuterol q 6 hrs prn.Monito r resp status. Anterior c hest wall pain 227079575 R07.89 Chronic left chest wall pain after thoracotom y.Gets scheduled T6, T7, T8 nerve blocks with [place] [facility] on regular schedule.C ontinue pregabalin 100 mg 5x/d, nortriptyl ine 10 mg qd,and lidocaine patch daily.Didn 't tolerate gabapentin .Monitor sxs and f/u as planned. Coronary arteriosclerosis 94033630 I25.10 Status post KAMRYN to the proximal RCA in 08/2022No recent sxs.Contin ue ASA 81 mg qd and atorvastat in 40 mg qd.Monitor for sxs.F/U with cardio as planned Hypothyroidism 25538211 E03.8 Last TSH 0.48 in 02/2024.In 09/2023 TSH had been low and levothyrox ine changed to 6d/wk, unclear when it got increased again, may have been inpt error.Cont inue levothyrox ine 125 mcg qdWill recheck TSH and FT4 with next labs Gastroesop hageal reflux disease 841102156 K21.9 No current sxs.Contin ue pantoprazo le 40 mg qd.Monitor GI sxs. Insulin resistance 28104 5000 E88.810 Sugars mostly WNL inpt, but HgA1C 6.2Encoura ge healthy eating and continued wt. loss.Monit or as outpt. Anemia 841833760 D64.89 Iron low inpt with high ferritin (likely due to infection) .Will start iron gluconate 324 mg qd. with vitamin C 500 mg qd for absorption .Monitor labs Migraine 35464412 G43.80 9 Relatively frequent in hx.Follows with neuro.Cont inue Emgality 120 mg monthly and nortriptyl ine 10 mg qhs.Monito r sxs.F/U as planned. Anxiety 89056226 F41.1 Mood good today.Cont inue sertraline 125 mg qd and lorazepam 0.5 mg BID prn x 14 days, re-eval 03/28Monito r mood.Consu lt psych prn Ileitis 19142317 K52.9 Under good control on current regimen.Co ntinue mesalamine 1.5 mg qd.Monitor sxs.F/U with GI as planned. History of Hodgkin lymphoma 162484455 Z85.71 S/P mantle field radiation back in 1992 in remission for many yearsF/U with oncology prn Obstructiv e sleep apnea syndrome 48464598 G47.33 Improved after gastric bypass surgery, but back on CPAP now.Contin ue CPAP with sleep.F/U with pulmonary. History of bariatric surgical procedure 954596557 Z98.84 S/P gastric bypass in 2018.Nestor nue ursodiol 500 mg BID.Contin ue to encourage healthy eating and continued wt. loss. Obesity 453343918 E66.01 Z68.41 As above. Vitamin D deficiency 347 26614 E56.8 Continue vitamin D 2000 IU qd.Monitor levels prn Dizziness 317546347 R42 When OOB, usually goes away.Somet imes she feels her HR go up, which then makes her feel more SOB.Labs goodVSGaetano ck orthostati c VS x 3Monitor [id number] [place] [address] 03/25/2024 10:15:48 03/28/2024 15:28:10 Streptococcal sore throat 19007906 J02.0 highly suspicious exam for strep throatstar t amoxicilli n 500 mg q12h x 10 daystyleno l for pain control and body achessuppo rtive care with rest and fluidscepa col throat lozenge po q2h prnthroat swab [id number] [place] [address] 03/29/2024 14:07:44 03/30/2024 15:57:47 Asthenia 93146145 R53.1 lingering weakness secondary to pneumonia and recent presumed strep throatcont inue PT/OT for strengthen ing and conditioni ngdiscusse d with patient to increase fluids to minimize risk for dehydratio n that can contribute to weakness and fatigue, patient verbalizes understand ing. Asthma 792258284 J45.40 breathing is improvingc ont on trelegyCon tinue albuterol q 6 hrs prn. [id number] JAZMIN MOLINA [facility] [address] [place] [address] 03/30/2024 09:46:22 03/31/2024 15:25:42 Asthenia 29021823 R53.1 lingering weakness secondary to pneumonia and recent presumed strep throatreco mmend continuing PT/OT for strengthen ing and conditioni ngdiscusse d with patient to increase fluids to minimize risk for dehydratio n that can contribute to weakness and fatigue, patient verbalizes understand ing. Asthma 117408588 J45.40 breathing is improvingc ont on trelegyCon tinue albuterol q 6 hrs prn. Anemia 351796938 D64.89 iron gluconate 324 mg qd. with vitamin C 500 mg qd for absorption . Anterior c hest wall pain 024169403 R07.89 Chronic left chest wall pain after thoracotom y.[facility] as plannedCon tinue pregabalin 100 mg 5x/d, nortriptyl ine 10 mg qd,and lidocaine patch daily. Anxiety 01401822 F41.1 Continue sertraline 125 mg qd Coronary arteriosclerosis 97205950 I25.10 Continue ASA 81 mg qd and atorvastat in 40 mg qd.Monitor for sxs. Enteritis of intestine 0752988807 K52.9 Continue mesalamine and ursodiol Gastroesop hageal reflux disease 549120420 K21.9 Continue pantoprazo le 40 mg qd. Hypothyroidism 34970174 E03.8 Continue levothyrox ine 125 mcg qd Ileitis 65215279 K52.9 Continue mesalamine 1.5 mg qd.F/U with GI as planned. Obstructiv e sleep apnea syndrome 94515183 G47.33 Continue CPAP with sleep.F/U with pulmonary. Health Concerns Section Related Observation LastModified by Organization Detai ls LastModified Time None Recorded Concern Status LastModified by Organization Details LastModified Time None Recorded Payers Encounter Date Sequence Insurance Name Policy Number Policy Chilel Covered Member ID Chilel Member ID Guarantor Name 03/30/2024 1 [facility]: MEDICARE HMO BLUE (MEDICARE REPLACEMENT HMO) [id number] Rose Marie Ross [id number] Rose Marie Ross Notes Date Note Type Note Provider Name and Address Organization Details Recorded Time 03/30/2024 text/html Discharge summar y This is a 58 yo woman who is was admitted for rehab after several recent hospitalizations, most recently for a multifocal PNA with pleural effusion and asthma exacerbation with hypoxia. Pt was admitted for 5 days at [place] and treated for right middle lobe pneumonia, aspiration pneumonia and acute hypoxic respiratory failure. Hours after her dc to rehab she was [place] [facility] [place] failure and required I[facility] admit and high krzysztof [place]. She was found to have acute hypoxic respiratory failure secondary to multifocal pneumonia and asthma exacerbation. Patient with antibiotics for multifocal pneumonia and steroids for asthma exacerbation. Course complicated by urinary retention that subsequently resolved without requiring a Mcknight catheter. Her respiratory status improved, and she was discharged back to rehab. Most recently on 03/25 patient was started on antibiotic for sx concerning for strep throat. she tell me that her throat symptoms have resolved, she will continue abx for 4 more days. She has progress toward goals with therapy, her breathing has greatly improved, continues to feel tired at times but otherwise she is doing well and is looking forward to going home. Her appetite has improved she is eating and drinking ok, denies any new discomfort, no concerns with elimination. She can be discharge to home with medications, therapy and nursing services. JAZMIN MOLINA [address] [facility], [address], [place], [address], [facility] [employer] 03/30/2024 10:18:52 OBGyn Episode No OBEpisode recorded.
--- OUTSIDE RECORDS SUMMARY | 2024-04-22 11:37 | XMS_ITS | Patient Health Record ---
Author Organization [facility] Address [address] [facility] [facility] [address] [place] [address] Care Team Providers Care Battery Filler Name Role Phone ADRIAN CORDERO Primary Care Provider Tessa Lemus Unavailable [phone] Allergies Allergen (clinical drug ingredient) Drug/Non Drug [...] 5.0 PROTEIN NEG GLUCOSE MOD BLOOD NEG Urinalysis, Complete-[id number] Reviewed date:06/12/2023 09:36:46 AM Interpretation: Performing Lab:[facility], [address] [place] [address], [place], Phone - [phone], Director - Ankur Notes/Report: Clinical Information:SRC:UR Clinical Information:SRC:UR Specific [place] 1.024 1.005-1.030 pH 6.5 5.0-7.5 Urine-Color Yellow Yellow Appearance Cloudy Clear WBC Esterase 1+ Negative Protein Trace Negative/Trace Glucose Negative Negative Ketones Trace Negative Occult Blood Negative Negative Bilirubin Negative Negative Urobilinogen,Semi-Qn 0.2 0.2-1.0 mg/dL Nitrite, Urine Negative Negative Microscopic Examination See below: Micr oscopic was indicated and was performed. WBC 0-5 0 - 5 /hpf RBC 0-2 0 - 2 /hpf Epithelial Cells (non renal) 0-10 0 - 10 /hpf Casts None seen None seen /lpf Bacteria Many None seen/Few Urine Culture, Routine-[id number] Reviewed date:06/12/2023 09:55:33 AM Interpretation: Performing Lab:[facility], [address] [facility], Phone - [phone], Director - Ankur Notes/Report: Clinical Information:SRC:UR Clinical Information:SRC:UR Urine Culture, Routine Final report Result 1 Klebsiella variicola Greater than 100,000 colony forming units per mL Antimicrobial Susceptibility S = Susceptible; I = Intermediate; R = Resistant P = Positive; N = Negative MICS are expressed in micrograms per mL Antibiotic RSLT#1 RSLT#2 RSLT#3 RSLT#4 Amoxicillin/Clavulanic Acid R Ampicillin R Cefepime S Ceftriaxone S Cefuroxime S Ciprofloxacin S Gentamicin S Imipenem S Nitrofurantoin I Tetracycline S Tobramycin S Trimethoprim/Sulfa S PDF Report Reviewed date:06/12/2023 08:47:40 AM Interpretation: Performing Lab:[facility], [address] [facility], [place], Phone - [phone], Director - Ankur Notes/Report: Clinical Information:SRC:UR Reason For Referral No Information Medications Medication SIG (Take, Route, Frequency, Duration) Notes Start Date End Date Status Nortriptyline HCl 10 MG Oral for 30 Active Apriso 0.375 GM Oral for 30 Ac tive Multivitamins 1 ORAL daily for -3 06/13/2013 Active Calcium 1 tab Oral Active Vitamin D 50 MCG (1999 UT) 1 tablet Orally Once a day for 30 day(s) Active Pentasa 250 MG 4 capsules Three mikki es a day Active Sertraline HCl 100 MG 1 tablet Orally On ce a day Plus 25 MG Active Ursodiol 500 MG Oral for 90 Days Active Aspir-81 Active Atorvastatin Calcium 40 MG Oral for 30 Active Angela Active LORazepam 0.5 MG Oral for 30 A ctive Pantoprazole Sodium 40 MG TAKE ONE TABLE T BY MOUTH EVERY DAY Oral for 90 Active Morphine Sulfate 15 MG Oral for 5 Days Active Meclizine HCl PRN Active Lidocaine 5 % External for 30 Days Active Levoxyl 112 MCG 1 tablet in the morning on an empty stomach Orally Active Pregabalin 50 MG TAKE 1 CAPSULE BY MOUTH FIVE TIMES DAILY Oral for 30 Days Active Social History Tobacco Use: Social History [...] Problem Status W/U Status Risk Notes Problem Non-Hodgkin lymphoma (459075763) Non-Hodgkin lymphoma, unspecified, unspecified site (C85.90) Active confirmed Problem Morbid obesity (disorder) (295952680) Morbid (severe) obesity due to excess calories (E66.01) Active confirmed Problem Cardiomyopathy associated with another disorder (544321998) 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 Problem Disorder of breast (56554287) Disorder of breast, unspecified (N64.9) Active confirmed Problem Unspecified menopausal and perimenopausal disorder (N95.9) Active confirmed Problem Mammography (97013045) Inconclusive mammogram (R92.2) Active confirmed Problem Replacement of contraceptive intrauterine device (87145308) Encounter for removal and reinsertion of intrauterine contraceptive device (Z30.433) Active confirmed Problem History of Hodgkin lymphoma (399865948) Personal history of Hodgkin lymphoma (Z85.71) Active confirmed Problem History of non-Hodgkins lymphoma (644496612) Personal history of non-Hodgkin lymphomas (Z85.72) Active confirmed Problem Menopause (338755710) Menopausal and female climacteric states (N95.1) Active confirmed Problem Hypothyroidism (73391317) Unspecified hypothyroidism (244.9) Active confirmed Major Problem Pure hypercholesterolemia (795971527) Pure hypercholesterolemia (272.0) Active confirmed Major Problem Hyperlipidemia (56758634) Other and unspecified hyperlipidemia (272.4) Active confirmed Major Problem Obesity (264495999) Obesity, uns pecified (278.00) Active confirmed Diag Problem Depressive disorder (14351228) Depressive disorder, not elsewhere classified (311) Active confirmed Major Problem Benign essential hypertension (6787835) Essential hypertension, benign (401.1) Active confirmed Major Problem Essential hypertension (56808884) Unspecified essential hypertension (401.9) Active confirmed Major Problem Acute sinusitis (52665729) Acute sinusitis, unspecified (461.9) Active confirmed Diag Problem Vulvovaginitis (disorder) (30111272) Unspecified vaginitis and vulvovaginitis (616.10) Active confirmed Diag Problem Asthma (disorder) (753331701) Asthma, unspecified, unspecified status (493.90) Active confirmed Major Problem Esophageal reflux (877151978) Esophageal reflux (530.81) Active confirmed Major Problem Osteoarthritis (928811524) Osteoarthrosis, unspecified whether generalized or localized, unspecified site (715.90) Active confirmed Major Problem Joint pain (finding) (47345764) Pain in joint, site unspecified (719.40) Active confirmed Diag Problem Sleep apnea (24709732) Unspecified sleep apnea (780.57) Active confirmed Diag Problem Shortness of breath (303193276) Shortness of breath (786.05) Active confirmed Diag Problem Gynecological examination normal (149944494819288) Routine gynecological examination (V72.31) Active confirmed Major Vital Signs Temperature 97.8 degrees Fahrenheit 02/22/2024 Blood pressure diastolic 70 mm Hg 02/22/2024 Height 63 in 02/22/2024 Blood pressure systolic 108 mm Hg 02/22/2024 Weight 231 lbs 02/22/2024 BMI 40.92 kg/m2 02/22/2024 Encounters Encounter Location Date Provider Diagnosis [facility] [place] [address] [address] 02/22/2024 Tessa Dawson Encounter for gynecological examination (general) (routine) without abnormal findings Z01.419 ; Encounter for screening mammogram for malignant neoplasm of breast Z12.31 ; Personal history of Hodgkin lymphoma Z85.71 ; Cardiomyopathy due to drug and external agent I42.7 and Dense breasts, unspecified R92.30 [facility] [place] [address] [address] 06/12/2023 Tessa Dawson [facility] [place] [address] [address] 02/23/2024 Tessa Dawson Glycosuria R81 Assessments Encounter Date Diagnosis (ICD Code) Assessment Notes Treatment Notes Treatment Clinical Notes Section Notes 02/22/2024 Encounter for gynecological examination (general) (routine) without abnormal findings (ICD-10 - Z01.419) NO PAP TEST, DUE IN 2026. 02/23/2024 Glycosuria (ICD-10 - R81) 02/22/2024 Encounter for screening mammogram for malignant neoplasm of breast (ICD-10 - Z12.31) REGULAR MAMMOGRAMS AND SBE'S WERE RECOMMENDED. 02/22/2024 Personal history of Hodgkin lymphoma (ICD-10 - Z85.71) PAT HAS HAD RADIATION TREATMENTS, WITH POSSIBLE RECURRENCE ON HER LUNG. REFERRED PAT TO [facility] FOR FURTHER EVALUATION AND MX. 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 ADVISED PAT TO SEED TX AT LOCATED WITHIN [facility]. THEY HAVE AN ONCOLOGY-CARDIOLOG Y SECTION. 02/22/2024 Dense breasts, unspecified (ICD-10 - R92.30) DISCUSSED DENSE BREASTS ON MAMMOGRAM AND ITS IMPLICATIONS. 3D MAMMOGRAMS WERE RECOMMENDED. Plan Of Treatment Pending Test Test Name Order Date Ultrasound : Breast, right 10/17/2020 Test, Urine 02/27/2020 MAMMOGRAM, SCREENING 08/09/2014 Urinalysis 08/28/2017 Urinalysis 01/30/2020 COMPLETE URINALYSIS 02/16/2023 THIN PREP,HPV,BOB IF HPV+ (>29YR)(SCRN) 08/28/2017 URINE CULTURE 02/16/2023 MM Digital Mammo Screening 09/10/2018 MM Digital Mammo Screening 02/10/2022 MM Digital Mammo Screening 02/22/2024 MM Digital Mammo Screening 02/16/2023 PELVIC ULTRASOUND W/TRANSVAGINAL 022 CBC, Platelet, No Differential-[id number] Hgb A1c with eAG Estimation-[id number] 02/22 Lipid Panel-[id number] 02/23/2024 Comp. Metabolic Panel [id number] 2023 Next Appt Details Provider Name:Tessa moise, 02/27/2025 01:00:00 PM, [address] [facility], [address], [place], [address], Insurance Providers Payer Name Payer Address Payer Phone Subscriber Number Group Number Insured Name Patient Relationship to Insured Coverage Start Date Coverage End Date [employer] OF [facility] [address] [place] [phone] [id number] PILO HAYDEN Self - patient is the insured Medical (General) History Medical History History ICD Code Pain in unspecified joint M25.50 Other obesity E66.8 Acute sinusitis, unspecified J01.90 Sleep apnea, unspecified G47.30 Shortness of breath R06.02 Gastro-esophageal reflux disease without esophagitis K21.9 Essential (primary) hypertension I10 Pure hypercholesterolemia E78.0 Other hyperlipidemia E78.4 Hypothyroidism, unspecified E03.9 Unspecified osteoarthritis, unspecified site M19.90 Other asthma J45.998 Major depressive disorder, single episod e, unspecified F32.9 Excessive and frequent menstruation with regular cycle N92.0 Menopausal and female climacteric states N95.1 Family history of malignant neoplasm of breast Z80.3 Non-Hodgkin lymphoma, unspecified, unspe cified site C85.90 Surgical History Surgery Date(Month/Year) Ankle Fusion Right x2 Cholecystectomy Sleeve Gastrectomy 12/2017 Pleurodesis for Pleural Effusion 07/06/18 Polyp removal 05/2018 Haert Stent, 2 biopsies-Lung Pleura 08/26 23 LUNG BIOPSY, 03/2023 Hospitalization History Reason Date(Month/Year) See Surgical Hx
--- OUTSIDE RECORDS SUMMARY | 2024-04-22 11:37 | XMS_ITS | Continuity of Care Document ---
Author Organization [facility], [place] Address [address] [place] [address] Care Team Providers Care District Sales Manager Name Role Phone [facility] OTHER ADRIAN CORDERO Primary Care Provider [phone] Assessment No assessment recorded. Plan of Treatment [...] Time Liver function tests outside reference range 984012910 Active 2024 [facility] [address], [address], [place], [address], [facility] 5 07:37:37 Allergic rhinitis 07617825 Active 20[address] [facility] [address], [address], [place], [address], [facility] 5 07:37:46 Anxiety 92471290 Active [address] [facility] [address], [address], [place], [address], [facility] 5 07:37:54 Asthma 004584544 Active 20[address] [facility] [address], [address], [place], [address], [facility] 5 07:38:02 Gastroesophag eal reflux disease 083062078 Active 2024 [facility] [address], [address], [place], [address], [facility] 5 07:38:10 History of Hodgkin lymphoma 296131628 Active 20[address] [facility] [address], [address], [place], [address], [facility] 5 07:38:45 Migraine 14358494 Active 20[address] [facility] [address], [address], [place], [address], [facility] 5 07:38:53 Mood disorder 50703268 Active [address] [facility] [address], [address], [place], [address], [facility] 5 07:39:02 Obstructive sleep apnea syndrome 47455094 Active [address] [facility] [address], [address], [place], [address], [facility] 5 07:39:13 Hypothyroidis m 48773052 Active [address] [facility] [address], [address], [place], [address], [facility] 5 07:39:22 Obesity 959339560 Active [address] [facility] [address], [address], [place], [address], [facility] 5 07:39:38 Adenomatous polyp of colon 760426396 Active [address] [facility] [address], [address], [place], [address], [facility] 5 07:40:10 Coronary arteriosclero sis 19649435 Active [address] [facility] [address], [address], [place], [address], [facility] 5 07:45:49 Acute respiratory failure 71916006 Active [address] [facility], [address], [place], [address], [facility] 5 07:46:00 Pneumonia 217125346 Active [address] [facility] [address], [address], [place], [address], [facility] 5 07:46:08 Pleural effusion 55377031 Active [address] [facility] [address], [address], [place], [address], [facility] 5 07:46:27 Atypical chest pain 417349221 Active 2024 [facility] [address] [facility], [address], [place], [address], [facility] 5 08:00:44 Enteritis of intestine 2153315527 Active 2024 [facility] [address] [facility], [address], [place], [address], [facility] 5 08:01:43 Anterior chest wall pain 914311861 Active 2024 Courtney Hilton MD [address] [facility], [address], [place], [address], [facility] 5 13:31:52 Ileitis 73094076 Active 2024 Courtney Hilton MD [address] [place] [address], [address], [place], [address], [facility] 5 14:10:16 Insulin resistance 676903682 Active 2024 Courtney Hilton MD [address] [place] [address], [address], [place], [address], [facility] 5 14:16:36 Anemia 426054223 Active 2024 Courtney Hilton MD [address], [address], [place], [address], [facility] 5 14:26:33 Problem Notes None recorded. Medical Equipment None Reported. Allergies Allergen ID Allergen Name Allergen Category Reaction Reaction Severity Criticality Documentation Date Start Date Code Code System Note Provider Name and Address Organization Details Recorded Time 07426 oxycodone medicatio n itching rash Not available Not available high 03/16/20242023 7804 RxNorm Not Available Not Available Not Available 54423 Gastrogra fin medicatio n Not available Not available Not available 03/16/2024 21399 5 RxNorm Not Available Not Available Not Available 16616 Substance with sulfonami de structure and antibacte rial mechanism of action (substanc e) medicatio n Not available Not available Not available 03/16/2024 91294 8003 SNOMED Not Available Not Available Not Available 07509 acetamino phen / oxycodone medicatio n Not available Not available Not available 03/16/2024 36143 3 RxNorm Not Available Not Available Not Available 96536 diatrizoa te meglumine medicatio n Not available Not available Not available 03/17/2024 3320 RxNorm Not Available Not Available Not Available 38059 acetamino phen / hydrocodo ne medicatio n hives Not available high 03/17/20242023 98535 2 RxNorm Not Available Not Available Not Available Vitals None Recorded Social History Question Answer Notes LastModified by Organizat ion Details LastModified Time Tobacco Smoking Status Never Smoker Courtney Hilton MD [address] [place] [address], [address], [place], [address], [facility] 03/17/2024 12:59:09 Do You Have An Advance [...] Do You Have A Medical Power Of Clinical Research Tech? Yes Not Invoked Information not available 03/17/2024 [...] Recorded Time Tdap 3 completed Donavon Parsons [facility] 03/17/2024 16:04:28 pneumococcal polysaccharide PPV23 7 completed Donavon Parsons [facility] 03/17/2024 16:04:40 influenza, unspecified formulation 6 completed Donavon Parsons [facility] 03/17/2024 16:04:55 influenza, unspecified formulation 7 completed Donavon Parsons [facility] 03/17/2024 16:04:59 influenza, unspecified formulation 8 completed Donavon Parsons [facility] 03/17/2024 16:05:04 influenza, unspecified formulation 1 completed Donavon Parsons [facility] 03/17/2024 16:05:08 influenza, unspecified formulation 2 completed Donavon Parsons [facility] 03/17/2024 16:05:12 MMRV 7 completed Donavon Parsons [facility] 03/17/2024 16:05:27 MMRV 7 completed Donavon Parsons [facility] 03/17/2024 16:05:32 SARS-COV-2 (COVID-19) vaccine, UNSPECIFIED 0 completed Donavon Issa null, [facility] 03/17/2024 16:05:44 SARS-COV-2 (COVID-19) vaccine, UNSPECIFIED 1 completed Donavon Parsons null, [facility] 03/17/2024 16:05:47 SARS-COV-2 (COVID-19) vaccine, UNSPECIFIED 1 completed Donavon Parsons null, [facility] 03/17/2024 16:05:52 SARS-COV-2 (COVID-19) vaccine, UNSPECIFIED 2 completed Donavon Parsons null, [facility] 03/17/2024 16:05:56 SARS-COV-2 (COVID-19) vaccine, UNSPECIFIED 2 completed Donavon Parsons [facility], [facility] 03/17/2024 16:06:02 SARS-COV-2 (COVID-19) vaccine, UNSPECIFIED 4 completed Donavon Parsons null, [facility] 03/17/2024 16:06:06 zoster, unspecified formulation 0 completed Donavon Parsons null, [facility] 03/17/2024 16:06:19 Past Encounters Encounter ID Performer Location Encounter Start Date Encounter Closed Date Diagnosis/Indication Diagnosis SNOMED-CT Code Diagnosis ICD10 Code Diagnosis Note [id number] [facility] [address] [place] [address] 03/16/2024 07:35:02 03/17/2024 10:55:49 Coronary arteriosclerosis 81928074 I25.10 Status post KAMRYN to the proximal RCA back in [place] ue aspirin and atorvastat inmonitor cp Hypothyroidism 66274239 E03.9 Continue levothyrox ine 125 mcg dailymonit or tsh/t4 Gastroesop hageal reflux disease 707776283 K21.9 continue pantoprazo lemonitor ss Migraine 39728169 G43.90 9 w/ auramonito r Anxiety 08226851 F41.9 Continue sertraline , and as needed lorazepamm onitor mood and affectpsyc h prn Atypical chest pain 1025 76754 R07.89 Chronic left chest wall pain after thoracotom yGets scheduled T6, T7, T8 nerve blocks with [facility] almost monthly.Co ntinue pregabalin and nortriptyl ine Enteritis of intestine 5465003456 K52.9 Continue home mesalamine and ursodiol History of Hodgkin lymphoma 537552618 Z85.71 status post mantle field radiation back in 1992 in remission for many years 4 excisional biopsy of a right groin lymph node, and left upper lung lobe mini thoracotom y after a suspicious PET scan (both biopsies negative for malignancy monitor and f/up with oncology as needed Pleural effusion 1180221 8 J90 history of recurrent left pleural effusions/ pneumothor aces status to thoracente ses (reportedl y negative for malignancy ) and eventually pleurodesi sfollows with pulmshe will sched f/up apt when she is stronger Obstructiv e sleep apnea syndrome 76581036 G47.33 CPAP qhs Obesity 580550646 E66.9 monitor diet and weightsedu cation Mood disorder 26243932 F 39 see depression Asthma 553098146 J45.90 9 mild asthmarece ntly tx for exaccontin ue symbicort and trelegy dailynebz stopped yesterday prior to dcmonitor need to restart Acute resp iratory failure 69638593 J96.00 dt asthma exac and multifocal PNAnow on RAstill sob with exertion, could be dt deconditio ningmonito r resp status Pneumonia 101868711 J18. 9 multifocal PNAmonitor cbc on admit and weeklyrepe at CXR in 6 weeksconti nue augmentin bid (ends 03/16)make f/up with her pulm Liver func tion tests outside reference range 638971685 R94.5 monitor LFTscmp on admit and weekly [id number] MD BENITO Petty [address] [place], [place] [address] 03/17/2024 12:00:28 03/18/2024 11:46:19 Coronary arteriosclerosis 83500266 I25.10 Status post KAMRYN to the proximal RCA in 08/2022No recent sxs.Contin ue ASA 81 mg qd and atorvastat in 40 mg qd.Monitor for sxs.F/U with cardio as planned Hypothyroidism 07259606 E03.8 Last TSH 0.48 in 02/2024.In 09/2023 TSH had been low and levothyrox ine changed to 6d/wk, unclear when it got increased again, may have been inpt error.Cont inue levothyrox ine 125 mcg qdWill recheck TSH and FT4 with next labs Gastroesop hageal reflux disease 862014489 K21.9 No current sxs.Contin ue pantoprazo le 40 mg qd.Monitor GI sxs. Migraine 13287500 G43.80 9 Relatively frequent in hx.Follows with neuro.Cont inue Emgality 120 mg monthly and nortriptyl ine 10 mg qhs.Monito r sxs.F/U as planned. Anxiety 10534471 F41.1 Mood good today.Cont inue sertraline 125 mg qd and lorazepam 0.5 mg BID prn.Monito r mood.Consu lt psych prn History of Hodgkin lymphoma 691599631 Z85.71 S/P mantle field radiation back in 1992 in remission for many yearsF/U with oncology prn Pleural effusion 7874336 8 J90 In hx, only minor on this admission. Monitor Obstructiv e sleep apnea syndrome 22283880 G47.33 Improved after gastric bypass surgery, but back on CPAP now.Contin ue CPAP with sleep.F/U with pulmonary. Obesity 313459039 E66.01 Z68.41 As above. Asthma 548377269 J45.40 Almost back to baseline.D /C med list had symbicort and trelegy listed.Pt says symbicort doesn't work, she is on trelegy at home. Actually has a brand new one in her nightstand here.Resta rt trelegy 100/62.5/2 5 mcg qdContinue albuterol q 6 hrs prn.Monito r resp status. Acute resp iratory failure 23596558 J96.01 Due to PNA causing asthma exacerbati on.Now resolved and weaned back to RA.Continu e asthma meds as below.Nadia tor resp status. Pneumonia 998274005 J15. 8 S/P multifocal PNAComplet ed course of abxs with Augmentin 875 mg BID on 03/16.Contin ue asthma meds as below.Very deconditio roberto.Needs PT/OT for strengthen ing, balance, gait training, safety and function.C ontinue fall precaution s.Monitor for safety.Mon itor resp status. Anterior c hest wall pain 240065643 R07.89 Chronic left chest wall pain after thoracotom y.Gets scheduled T6, T7, T8 nerve blocks with [facility] on regular schedule.C ontinue pregabalin 100 mg 5x/d, nortriptyl ine 10 mg qd,and lidocaine patch daily.Didn 't tolerate gabapentin .Monitor sxs and f/u as planned. History of bariatric surgical procedure 165912128 Z98.84 S/P gastric bypass in 2018.Nestor nue ursodiol 500 mg BID.Contin ue to encourage healthy eating and continued wt. loss. Ileitis 18763545 K52.9 Under good control on current regimen.Co ntinue mesalamine 1.5 mg qd.Monitor sxs.F/U with GI as planned. Insulin resistance 14613 5000 E88.810 Sugars mostly WNL inpt, but HgA1C 6.2Encoura ge healthy eating and continued wt. loss.Monit or as outpt. Vitamin D deficiency 347 98734 E56.8 Continue vitamin D 2000 IU qd.Monitor levels prn Anemia 389899719 D64.89 Iron low inpt with high ferritin (likely due to infection) .Will start iron gluconate 324 mg qd. with vitamin C 500 mg qd for absorption .Monitor labs [id number] NETO LIAO NP [facility] [address] [place] [address] 03/24/2024 12:46:00 03/25/2024 13:32:28 Pneumonia 191308406 J15.8 S/P multifocal PNAComplet ed course of abxs with Augmentin 875 mg BID on 03/16.Contin ue asthma meds as below.Very deconditio roberto.Needs PT/OT for strengthen ing, balance, gait training, safety and function.G oal is to return home.Nestor nue fall precaution s.Monitor for safety.Mon itor resp status. Acute resp iratory failure 52966026 J96.01 Due to PNA causing asthma exacerbati on.Now resolved and weaned back to RA.Continu e asthma meds as below.Nadia tor resp status. Pleural effusion 0768458 8 J90 In hx, only minor on this admission. Monitor Asthma 848504266 J45.40 Almost back to baseline.D /C med list had symbicort and trelegy listed.Pt says symbicort doesn't work, she is on trelegy at home. Actually has a brand new one in her nightstand here.Resta rt trelegy 100/62.5/2 5 mcg qdContinue albuterol q 6 hrs prn.Monito r resp status. Anterior c hest wall pain 697677875 R07.89 Chronic left chest wall pain after thoracotom y.Gets scheduled T6, T7, T8 nerve blocks with [facility] on regular schedule.C ontinue pregabalin 100 mg 5x/d, nortriptyl ine 10 mg qd,and lidocaine patch daily.Didn 't tolerate gabapentin .Monitor sxs and f/u as planned. Coronary arteriosclerosis 81994561 I25.10 Status post KAMRYN to the proximal RCA in 08/2022No recent sxs.Contin ue ASA 81 mg qd and atorvastat in 40 mg qd.Monitor for sxs.F/U with cardio as planned Hypothyroidism 53582035 E03.8 Last TSH 0.48 in 02/2024.In 09/2023 TSH had been low and levothyrox ine changed to 6d/wk, unclear when it got increased again, may have been inpt error.Cont inue levothyrox ine 125 mcg qdWill recheck TSH and FT4 with next labs Gastroesop hageal reflux disease 840925782 K21.9 No current sxs.Contin ue pantoprazo le 40 mg qd.Monitor GI sxs. Insulin resistance 44207 5000 E88.810 Sugars mostly WNL inpt, but HgA1C 6.2Encoura ge healthy eating and continued wt. loss.Monit or as outpt. Anemia 361971180 D64.89 Iron low inpt with high ferritin (likely due to infection) .Will start iron gluconate 324 mg qd. with vitamin C 500 mg qd for absorption .Monitor labs Migraine 64889537 G43.80 9 Relatively frequent in hx.Follows with neuro.Cont inue Emgality 120 mg monthly and nortriptyl ine 10 mg qhs.Monito r sxs.F/U as planned. Anxiety 70298009 F41.1 Mood good today.Cont inue sertraline 125 mg qd and lorazepam 0.5 mg BID prn x 14 days, re-eval 03/28Monito r mood.Consu lt psych prn Ileitis 14568192 K52.9 Under good control on current regimen.Co ntinue mesalamine 1.5 mg qd.Monitor sxs.F/U with GI as planned. History of Hodgkin lymphoma 905658383 Z85.71 S/P mantle field radiation back in 1992 in remission for many yearsF/U with oncology prn Obstructiv e sleep apnea syndrome 66052451 G47.33 Improved after gastric bypass surgery, but back on CPAP now.Contin ue CPAP with sleep.F/U with pulmonary. History of bariatric surgical procedure 177806624 Z98.84 S/P gastric bypass in 2018.Nestor nue ursodiol 500 mg BID.Contin ue to encourage healthy eating and continued wt. loss. Obesity 235117325 E66.01 Z68.41 As above. Vitamin D deficiency 347 80406 E56.8 Continue vitamin D 2000 IU qd.Monitor levels prn Dizziness 040486943 R42 When OOB, usually goes away.Somet imes she feels her HR go up, which then makes her feel more SOB.Labs goodVSSChe ck orthostati c VS x 3Monitor [id number] SHARMILA KING, [employer] [facility] [address] [place] [address] 03/25/2024 10:15:48 03/28/2024 15:28:10 Streptococcal sore throat 50595441 J02.0 highly suspicious exam for strep throatstar t amoxicilli n 500 mg q12h x 10 daystyleno l for pain control and body achessuppo rtive care with rest and fluidscepa col throat lozenge po q2h prnthroat swab Health Concerns Section Related Observation LastModified by Organization Detai ls LastModified Time None Recorded Concern Status LastModified by Organization Details LastModified Time None Recorded Payers Encounter Date Sequence Insurance Name Policy Number Policy Chilel Covered Member ID Chilel Member ID Guarantor Name 03/25/2024 1 [facility]: MEDICARE HMO BLUE (MEDICARE REPLACEMENT HMO) [id number] Rose Marie Ross [id number] Rose Marie Ross Notes Date Note Type Note Provider Name and Address Organization Details Recorded Time 03/25/2024 text/html Pt is a 58 yo wo man being seen today for acute rounding. She is here for rehab after several recent hospitalizations, most recently for a multifocal PNA with pleural effusion and asthma exacerbation with hypoxia. Asked to see pt for a severe sore throat. On exam pts throat is bright red, swollen, and covered in a white exudate. She denies fever but doesnt feel well and has generalized body discomfort. She denies cough or sob. Her PMH includes CAD, asthma, hypothyroidism, moderate aortic and mitral valve stenosis, Hodgkin's lymphoma status post mantle radiation, left thoracentesis and pleurodesis complicated by recurrent pleural effusions s/p left mini-thoracotomy with wedge resection of left upper lobe and excision of right groin lymph node on 03/12/2023, GERD, insulin resistance, and chronic chest wall pain since thoracotomy. SHARMILA KING, [employer] [address] [facility], [address], [place], [address], [facility] 03/25/2024 10:23:45 OBGyn Episode No OBEpisode recorded.
--- OUTSIDE RECORDS SUMMARY | 2024-04-22 11:37 | XMS_ITS ---
Author Organization [facility] Address Unknown Allergies, Adverse Reactions, Alerts Substance Reaction Status Noted Date Resolved Date Sulfa Antibiotics active 03/15/2024 Percocet active 03/15/2024 oxyCODONE active 03/15/2024 Gastrografin active 03/15/2024 Medications Medication Dose Frequency Directions Start Date End Ford e Fleet Enema Enema 7-19 GM/118ML 1 Insert 1 unit rectally every 24 hours as needed for Constipation Use only if Bisacodyl Suppository is ineffective 03/16/2024 03/30/2024 Senna Tablet 8.6 MG 1 {tbl} Give 1 t ablet by mouth every 24 hours as needed for Constipation 03/16/2024 03/30/2024 Bisacodyl Suppository 10 MG 1 Insert 1 suppository rectally every 24 hours as needed for constipation Use if Senna is Ineffective 03/16/2024 03/30/2024 Meclizine HCl Oral Tablet 12.5 MG 1 {tbl} Give 1 tablet by mouth every 8 hours as needed for dizziness for 10 Days 03/16/2024 03/26/2024 Mesalamine ER Oral Capsule Extended Release 1.5 mg 24 h Give 1.5 mg by mouth one time a day for UC 03/16/2024 03/30/2024 Ursodiol Oral Tablet 500 MG 500 mg 12 h Give 500 mg by mouth two times a day for obesity 03/16/2024 03/30/2024 Vitamin D3 Oral Tablet 2000 24 h Give 2000 unit by mouth one time a day for CAD 03/16/2024 03/30/2024 Levothyroxine Sodium Tablet 125 MCG 1 {tbl} Give 1 tablet by mouth in the morning for hypothyroidism for 90 Days on an empty stomach, at least 30 minutes before food.Do not give within 4 hours of iron or calcium avoid aluminum containing antacids, and MVI w min 03/16/2024 03/30/2024 Nortriptyline HCl Oral Capsule 10 MG 10 mg Give 10 mg by mouth at bedtime for depression 03/16/2024 03/30/2024 Atorvastatin Calcium Oral Tablet 40 MG 1 {tbl} 24 h Give 1 tablet by mouth one time a day for HLD 03/16/2024 03/30/2024 Aspirin EC Low Dose Oral Tablet Delayed Release 81 MG 1 {tbl} 24 h Give 1 tablet by mouth one time a day for CAD 03/16/2024 03/30/2024 Pantoprazole Sodium Oral Tablet Delayed Release 40 MG 40 mg 24 h Give 40 mg by mouth one time a day for UC/Gerd 03/16/2024 03/30/2024 Albuterol Sulfate Inhalation Aerosol Powder Breath Activated 90 ug 90 mcg inhale orally every 6 hours as needed for asthma for 90 Days 03/16/2024 03/30/2024 Galcanezumab-gnlm Subcutaneous Solution Auto-injector 120 MG/ML 120 mg Inject 120 mg subcutaneously every 28 days every 28 day(s) for migraines 04/13/2024 03/30/2024 guaiFENesin Oral Tablet 400 MG 400 mg 6 h Give 400 mg by mouth four times a day for asthma 03/16/2024 03/30/2024 Sertraline HCl Oral Tablet 25 MG 25 mg 24 h Give 25 mg by mouth one time a day for depression part of a 125 mg dose 03/16/2024 03/30/2024 Sertraline HCl Oral Tablet 25 MG 100 mg 24 h Give 100 mg by mouth one time a day for depression part of a 125 mg dose 03/16/2024 03/30/2024 LORazepam Oral Tablet 0.5 MG 0.5 mg Give 0.5 mg by mouth every 12 hours as needed for anxiety until 03/29/2024 23:59 03/16/2024 03/30/2024 Lidocaine External Patch 24 h Apply to left chest wall topically one time a day for pain and remove per schedule 03/17/2024 03/30/2024 Pregabalin Oral Capsule 50 MG 2 {Capsule} 4.8 h Give 2 capsule by mouth five times a day for migraine Give 100 mg capsule 03/17/2024 03/30/2024 Vitamin C Oral Tablet 1 {tbl} 24 h Give 1 tablet by mouth one time a day for Vitamin 03/18/2024 03/30/2024 Ferrous Sulfate Tablet 325 (65 Fe) MG 1 {tbl} 24 h Give 1 tablet by mouth one time a day for Vitamins Avoid dairy products, tetracycline, etc. within 2 hours. May discolor urine or feces. Take with food or meal if upset stomach occurs. 03/18/2024 03/30/2024 Trelegy Ellipta Inhalation Aerosol Powder Breath Activated 100-62.5-25 MCG/ACT 1 24 h 1 inhalation inhale orally one time a day for SOB 03/22/2024 03/30/2024 Amoxicillin Oral Capsule 500 MG 1 {Capsule} 12 h Give 1 capsule by mouth two times a day for Strep for 10 Days 03/26/2024 03/30/2024 Cepacol Mouth/Throat Lozenge 15-2.3 MG 1 {tbl} Give 1 tablet by mouth every 04 hours as needed for Monitoring until 03/25/2024 23:59 03/25/2024 03/26/2024 Medications Administered Medication Dose Frequency Status Start Date End Date Fleet Enema Enema 7-19 GM/118ML 1 03/16/2024 Senna Tablet 8.6 MG 1 {tbl} 03/16/2024 Bisacodyl Suppository 10 MG 1 Meclizine HCl Oral Tablet 12.5 MG 1 {tbl} 03/16/2024 Mesalamine ER Oral Capsule E xtended Release 1.5 mg 24 h 03/30/2024 Ursodiol Oral Tablet 500 MG 500 mg 12 h Vitamin D3 Oral Tablet 2000 24 h 025 Levothyroxine Sodium Tablet 125 MCG 1 {tbl} 03/30/2024 Nortriptyline HCl Oral Capsule 10 MG 10 mg 03/30/2024 Atorvastatin Calcium Oral Ta blet 40 MG 1 {tbl} 24 h 03/30/2024 Aspirin EC Low Dose Oral Tab let Delayed Release 81 MG 1 {tbl} 24 h 03/30/2024 Pantoprazole Sodium Oral Tab let Delayed Release 40 MG 40 mg 24 h 03/30/2024 Albuterol Sulfate Inhalation Aerosol Powder Breath Activated 90 ug 03/19/2024 Galcanezumab-gnlm Subcutaneo us Solution Auto-injector 120 MG/ML 120 mg 04/13/19 25 guaiFENesin Oral Tablet 400 MG 400 mg 6 h 03/30/2024 Sertraline HCl Oral Tablet 25 MG 25 mg 24 h 03/30/2024 Sertraline HCl Oral Tablet 25 MG 100 mg 24 h 03/30/2024 LORazepam Oral Tablet 0.5 MG 0.5 mg 0 03/16/2024 Lidocaine External Patch 24 h 03/30 Pregabalin Oral Capsule 50 MG 2 {Capsule} 4.8 h 03/30/2024 Vitamin C Oral Tablet 1 {tbl} 24 h 03/30/19 25 Ferrous Sulfate Tablet 325 ( 65 Fe) MG 1 {tbl} 24 h 03/30/2024 Trelegy Ellipta Inhalation A erosol Powder Breath Activated 100-62.5-25 MCG/ACT 1 24 h 03/30/2024 Amoxicillin Oral Capsule 500 MG 1 {Capsule} 12 h 03/30/2024 Cepacol Mouth/Throat Lozenge 15-2.3 MG 1 {tbl} 03/25/2024 Problems Problem Status Start Date End Date PNEUMONIA, UNSPECIFIED ORGAN ISM (Primary) (J18.9 - ICD-10-CM) ACTIVE 03/15/2024 UNSPECIFIED ASTHMA WITH (ACU TE) EXACERBATION (J45.901 - ICD-10-CM) ACTIVE 03/15/2024 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 - ICD-10-CM) ACTIVE 03/15/2024 HYPERLIPIDEMIA, UNSPECIFIED (E78.5 - ICD-10-CM) ACTIVE 03/15/2024 ANXIETY DISORDER, UNSPECIFIED (F41.9 - ICD-10-CM) ACTI VE 03/15/2024 ACUTE RESPIRATORY FAILURE WI TH HYPOXIA (J96.01 - ICD-10-CM) ACTIVE 03/15/2024 ABNORMAL RESULTS OF LIVER FU NCTION STUDIES (R94.5 - ICD-10-CM) ACTIVE 03/15/2024 NONINFECTIVE GASTROENTERITIS AND COLITIS, UNSPECIFIED (K52.9 - ICD-10-CM) ACTIVE 03/15/2024 OBSTRUCTIVE SLEEP APNEA (DUSTIN LT) (PEDIATRIC) (G47.33 - ICD-10-CM) ACTIVE 03/15/2024 GASTRO-ESOPHAGEAL REFLUX DIS EASE WITHOUT ESOPHAGITIS (K21.9 - ICD-10-CM) ACTIVE 03/15/2024 PERSONAL HISTORY OF ADENOMAT OUS AND SERRATED COLON POLYPS (Z86.0101 - ICD-10-CM) ACTIVE 03/15/2024 OTHER CHEST PAIN (R07.89 - ICD-10-CM) ACTIVE 09/2024 PERSONAL HISTORY OF [place] LYMPHOMA (Z85.71 - ICD-10- CM) ACTIVE 03/15/2024 PERSONAL HISTORY OF OTHER DI SEASES OF THE NERVOUS SYSTEM AND SENSE ORGANS (Z86.69 - ICD-10-CM) ACTIVE 03/15/2024 POSTPROCEDURAL HYPOTHYROIDISM (E89.0 - ICD-10-CM) ACTI VE 03/15/2024 MUSCLE WEAKNESS (GENERALIZED) (M62.81 - ICD-10-CM) ACT ALEXANDER 03/15/2024 SHORTNESS OF BREATH (R06.02 - ICD-10-CM) ACTIVE 03/15/2024 DIFFICULTY IN WALKING, NOT E LSEWHERE CLASSIFIED (R26.2 - ICD-10-CM) ACTIVE 03/15/2024 UNSTEADINESS ON FEET (R26.81 - ICD-10-CM) ACTIVE 03/15/2024 UNSPECIFIED MOOD [AFFECTIVE] DISORDER (F39 - ICD-10-CM ) ACTIVE 03/15/2024 ANEMIA, UNSPECIFIED (D64.9 - ICD-10-CM) ACTIVE 0 03/15/2024 OTHER MIGRAINE, NOT INTRACTA BLE, WITHOUT STATUS MIGRAINOSUS (G43.809 - ICD-10-CM) ACTIVE 03/15/2024 MORBID (SEVERE) OBESITY DUE TO EXCESS CALORIES (E66.01 - ICD-10-CM) ACTIVE 03/15/2024 DEPRESSION, UNSPECIFIED (F32.A - ICD-10-CM) ACTIVE 03/15/2024 Encounters Encounter Performer Performer Role Encounter Diagnoses Location Date Discharge - Discharged to home or self care - [facility] - Private home/apt. with home health services [facility] 03/15/2024 06:50 pm EST - 03/30/2024 11:00 am EST Immunizations Vaccine Date Influenza TB 1 Step [place] (PPD) 03/17/2024 05:36 am EST Pneumococcal Polysaccharide Vaccine (PPS V23) 11/03/2016 12:00 am EDT Measles, Mumps, Rubella 01/05/2017 12:00 am EDT Measles, Mumps, Rubella 09/30/2016 12:00 am EDT Prevnar 20 Pneumococcal conjugate (PCV20 ) RSV, recombinant, protein subunit RSVpre F, adjuvant rec SARS-COV-2 (COVID-19) vaccine, [facility] 12/26/2023 12:00 am EDT SARS-COV-2 (COVID-19) vaccine, [facility] 03/07/2022 12:00 am EST SARS-COV-2 (COVID-19) vaccine, [facility] 09/08/2021 12:00 am EDT SARS-COV-2 (COVID-19) vaccine, [facility] 12/08/2020 12:00 am EDT SARS-COV-2 (COVID-19) vaccine, [facility] 03/16/2020 12:00 am EST SARS-COV-2 (COVID-19) vaccine, [facility] 02/24/2020 12:00 am EST Tdap 02/16/2023 12:00 am EST zoster vaccine, live 10/10/2019 12:00 am EDT Social History Vital Signs Vital Sign Reading Time Taken temperature 97.7 [degF] 03/30/2024 08:36 am EST temperature 97.7 [degF] 03/29/2024 09:51 pm EST temperature 97.6 [degF] 03/29/2024 01:48 pm EST temperature 97.6 [degF] 03/29/2024 09:03 am EST temperature 97.3 [degF] 03/28/2024 09:47 pm EST temperature 97.5 [degF] 03/28/2024 01:05 pm EST temperature 97.5 [degF] 03/28/2024 10:03 am EST temperature 97.6 [degF] 03/27/2024 08:30 pm EST temperature 97.5 [degF] 03/27/2024 02:14 pm EST painLevel 0 {score} 03/30/2024 08:36 am EST painLevel 0 {score} 03/29/2024 11:13 pm EST painLevel 0 {score} 03/29/2024 09:52 pm EST painLevel 0 {score} 03/29/2024 10:36 am EST painLevel 0 {score} 03/29/2024 02:38 am EST painLevel 0 {score} 03/28/2024 03:50 pm EST painLevel 0 {score} 03/28/2024 10:09 am EST painLevel 0 {score} 03/28/2024 10:03 am EST painLevel 0 {score} 03/28/2024 12:22 am EST painLevel 0 {score} 03/27/2024 06:59 pm EST oxygenSaturation 98 % 03/30/2024 04:3 0 am EST oxygenSaturation 98 % 03/29/2024 09:5 8 pm EST oxygenSaturation 99 % 03/29/2024 01:4 8 pm EST oxygenSaturation 99 % 03/29/2024 01:2 7 pm EST oxygenSaturation 98 % 03/29/2024 03:4 1 am EST oxygenSaturation 98 % 03/28/2024 09:4 9 pm EST oxygenSaturation 99 % 03/28/2024 01:0 5 pm EST oxygenSaturation 99 % 03/28/2024 12:0 8 pm EST oxygenSaturation 95 % 03/28/2024 12:1 8 am EST oxygenSaturation 95 % 03/27/2024 04:4 3 pm EST oxygenSaturation 96 % 03/27/2024 02:1 4 pm EST heartrate 87 /min 03/29/2024 01:48 pm EST heartrate 77 /min 03/28/2024 01:05 pm EST heartrate 70 /min 03/27/2024 09:06 pm EST heartrate 72 /min 03/27/2024 09:05 pm EST heartrate 74 /min 03/27/2024 09:05 pm EST heartrate 71 /min 03/27/2024 02:14 pm EST heartrate 71 /min 03/27/2024 02:13 pm EST heartrate 76 /min 03/27/2024 02:13 pm EST systolicValue 93 mm[Hg] 03/29/2024 01:48 pm EST diastolicValue 52 mm[Hg] 03/29/2024 01:48 pm EST systolicValue 124 mm[Hg] 03/28/2024 01:05 pm EST diastolicValue 70 mm[Hg] 03/28/2024 01:05 pm EST systolicValue 119 mm[Hg] 03/27/2024 09:06 pm EST diastolicValue 72 mm[Hg] 03/27/2024 09:06 pm EST systolicValue 120 mm[Hg] 03/27/2024 09:05 pm EST diastolicValue 70 mm[Hg] 03/27/2024 09:05 pm EST systolicValue 121 mm[Hg] 03/27/2024 09:05 pm EST diastolicValue 68 mm[Hg] 03/27/2024 09:05 pm EST systolicValue 117 mm[Hg] 03/27/2024 02:14 pm EST diastolicValue 70 mm[Hg] 03/27/2024 02:14 pm EST systolicValue 117 mm[Hg] 03/27/2024 02:13 pm EST diastolicValue 70 mm[Hg] 03/27/2024 02:13 pm EST systolicValue 122 mm[Hg] 03/27/2024 02:13 pm EST diastolicValue 68 mm[Hg] 03/27/2024 02:13 pm EST respirations 18 /min 03/29/2024 01:48 pm EST respirations 18 /min 03/28/2024 01:05 pm EST respirations 18 /min 03/27/2024 02:14 pm EST weight 218.4 [lb_av] 03/27/2024 02:23 pm EST
--- OUTSIDE RECORDS SUMMARY | 2024-04-22 11:37 | XMS_ITS | Continuity of Care Document ---
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 Plan of Treatment [...] Time Liver function tests outside reference range 824104201 Active 2024 [address], [address], [place], [address], [facility] 5 07:37:37 Allergic rhinitis 23113083 Active [address] [facility] [address], [address], [place], [address], [facility] 5 07:37:46 Anxiety 90299731 Active [address] [facility] [address], [address], [place], [address], [facility] 5 07:37:54 Asthma 665997703 Active [address] [facility] [address], [address], [place], [address], [facility] 5 07:38:02 Gastroesophag eal reflux disease 162163506 Active [address] [facility] [address], [address], [place], [address], [facility] 5 07:38:10 History of Hodgkin lymphoma 420729544 Active [address] [facility] [address], [address], [place], [address], [facility] 5 07:38:45 Migraine 65919014 Active [address] [facility] [address], [address], [place], [address], [facility] 5 07:38:53 Mood disorder 32418782 Active [address] [facility] [address], [address], [place], [address], [facility] 5 07:39:02 Obstructive sleep apnea syndrome 38311222 Active [address] [facility] [address], [address], [place], [address], [facility] 5 07:39:13 Hypothyroidis m 66383537 Active [address] [facility] [address], [address], [place], [address], [facility] 5 07:39:22 Obesity 946774551 Active [address] [facility] [address], [address], [place], [address], [facility] 5 07:39:38 Adenomatous polyp of colon 439802963 Active [address] [facility] [address], [place], [address], [facility] 5 07:40:10 Coronary arteriosclero sis 06236909 Active [address] [facility] [address], [place], [address], [facility] 5 07:45:49 Acute respiratory failure 41396633 Active [address], [place], [address], [facility] 5 07:46:00 Pneumonia 443049948 Active [address] [facility] [address], [place], [address], [facility] 5 07:46:08 Pleural effusion 04727158 Active [address] [facility] [address], [place], [address], [facility] 5 07:46:27 Atypical chest pain 219653049 Active 2024 [facility] [address] [facility], [address], [place], [address], [facility] 5 08:00:44 Enteritis of intestine 4077289873 Active 2024 [facility] [address] [facility], [address], [place], [address], [facility] 5 08:01:43 Anterior chest wall pain 271553693 Active 2024 Courtney Hilton MD [address] [facility], [address], [place], [address], [facility] 5 13:31:52 Ileitis 86329044 Active 2024 Courtney Hilton MD [address] [place] [address], [address], [place], [address], [facility] 5 14:10:16 Insulin resistance 907421123 Active 2024 Courtney Hilton MD [address] [place] [address], [address], [place], [address], [facility] 5 14:16:36 Anemia 047909963 Active 2024 Courtney Hilton MD [address], [address], [place], [address], [facility] 5 14:26:33 Problem Notes None recorded. Medical Equipment None Reported. Allergies Allergen ID Allergen Name Allergen Category Reaction Reaction Severity Criticality Documentation Date Start Date Code Code System Note Provider Name and Address Organization Details Recorded Time 80697 oxycodone medicatio n itching rash Not available Not available high 03/16/20242023 7804 RxNorm Not Available Not Available Not Available 14590 Gastrogra fin medicatio n Not available Not available Not available 03/16/2024 89545 5 RxNorm Not Available Not Available Not Available 22828 Substance with sulfonami de structure and antibacte rial mechanism of action (substanc e) medicatio n Not available Not available Not available 03/16/2024 01229 8003 SNOMED Not Available Not Available Not Available 59325 acetamino phen / oxycodone medicatio n Not available Not available Not available 03/16/2024 45131 3 RxNorm Not Available Not Available Not Available 77283 diatrizoa te meglumine medicatio n Not available Not available Not available 03/17/2024 3320 RxNorm Not Available Not Available Not Available 69449 acetamino phen / hydrocodo ne medicatio n hives Not available high 03/17/20242023 07112 2 RxNorm Not Available Not Available Not Available Vitals Date Recorded Body height Heart rate Respiratory rate Body temperature Oxygen saturation Oxygen saturation in Arterial blood by Pulse oximetry Systolic blood pressure Diastolic blood pressure Provider Name and Address Organization Details Last Updated DateTime 5 154.94 cm 80 /min 18 /min 98.2 [degF] 97 % 97 % 135 mm[Hg] 70 mm[Hg] NETO LIAO NP [address] [facility], [facility] [address], [place], [address], [facility] 5 14:13:38 Social History Question Answer Notes LastModified by Organizat ion Details LastModified Time Tobacco Smoking Status Never Smoker Courtney Hilton MD [address] [facility], [facility] [address], [place] [address], [address], [facility] 03/17/2024 12:59:09 Do You Have An [...] Do You Have A Medical Power Of Waste Management Specialist? Yes Not Invoked Information not available 03/17/2024 [...] Recorded Time Tdap 3 completed Donavon Parsons [facility] 03/17/2024 16:04:28 pneumococcal polysaccharide PPV23 7 completed Donavon Parsons [facility] 03/17/2024 16:04:40 influenza, unspecified formulation 6 completed Donavon Parsons [facility] 03/17/2024 16:04:55 influenza, unspecified formulation 7 completed Donavon Parsons [facility] 03/17/2024 16:04:59 influenza, unspecified formulation 8 completed Donavon Parsons [facility] 03/17/2024 16:05:04 influenza, unspecified formulation 1 completed Donavon Parsons null, [facility] 03/17/2024 16:05:08 influenza, unspecified formulation 2 completed Donavon Jacks-Caal null, [facility] 03/17/2024 16:05:12 MMRV 7 completed Donavon Jacks-Caal null, [facility] 03/17/2024 16:05:27 MMRV 7 completed Donavon Jacks-Caal null, [facility] 03/17/2024 16:05:32 SARS-COV-2 (COVID-19) vaccine, UNSPECIFIED 0 completed Donavon Jeromes-Caal null, [facility] 03/17/2024 16:05:44 SARS-COV-2 (COVID-19) vaccine, UNSPECIFIED 1 completed Donavon Canos-Caal null, [facility] 03/17/2024 16:05:47 SARS-COV-2 (COVID-19) vaccine, UNSPECIFIED 1 completed Donavon Jeromes-Caal null, [facility] 03/17/2024 16:05:52 SARS-COV-2 (COVID-19) vaccine, UNSPECIFIED 2 completed Donavon Jacks-Caal null, [facility] 03/17/2024 16:05:56 SARS-COV-2 (COVID-19) vaccine, UNSPECIFIED 2 completed Donavon Jeromes-Caal null, [facility] 03/17/2024 16:06:02 SARS-COV-2 (COVID-19) vaccine, UNSPECIFIED 4 completed Donavon Canos-Caal null, [facility] 03/17/2024 16:06:06 zoster, unspecified formulation 0 completed Donavon Jeromes-Caal null, [facility] 03/17/2024 16:06:19 Past Encounters Encounter ID Performer Location Encounter Start Date Encounter Closed Date Diagnosis/Indication Diagnosis SNOMED-CT Code Diagnosis ICD10 Code Diagnosis Note [id number] [place] [address] [address] 03/16/2024 07:35:02 03/17/2024 10:55:49 Coronary arteriosclerosis 72355058 I25.10 Status post KAMRYN to the proximal RCA back in August3contin ue aspirin and atorvastat inmonitor cp Hypothyroidism 87673500 E03.9 Continue levothyrox ine 125 mcg dailymonit or tsh/t4 Gastroesop hageal reflux disease 168185142 K21.9 continue pantoprazo lemonitor ss Migraine 27423710 G43.90 9 w/ auramonito r Anxiety 24336972 F41.9 Continue sertraline , and as needed lorazepamm onitor mood and affectpsyc h prn Atypical chest pain 1025 21481 R07.89 Chronic left chest wall pain after thoracotom yGets scheduled T6, T7, T8 nerve blocks with [facility] office almost monthly.Co ntinue pregabalin and nortriptyl ine Enteritis of intestine 4433920188 K52.9 Continue home mesalamine and ursodiol History of Hodgkin lymphoma 798111548 Z85.71 status post mantle field radiation back in 1992 in remission for many years 4 excisional biopsy of a right groin lymph node, and left upper lung lobe mini thoracotom y after a suspicious PET scan (both biopsies negative for malignancy monitor and f/up with oncology as needed Pleural effusion 9532681 8 J90 history of recurrent left pleural effusions/ pneumothor aces status to thoracente ses (reportedl y negative for malignancy ) and eventually pleurodesi sfollows with pulmshe will sched f/up apt when she is stronger Obstructiv e sleep apnea syndrome 06881695 G47.33 CPAP qhs Obesity 115749678 E66.9 monitor diet and weightsedu cation Mood disorder 96909143 F 39 see depression Asthma 193013750 J45.90 9 mild asthmarece ntly tx for exaccontin ue symbicort and trelegy dailynebz stopped yesterday prior to dcmonitor need to restart Acute resp iratory failure 28614301 J96.00 dt asthma exac and multifocal PNAnow on RAstill sob with exertion, could be dt deconditio ningmonito r resp status Pneumonia 976758230 J18. 9 multifocal PNAmonitor cbc on admit and weeklyrepe at CXR in 6 weeksconti nue augmentin bid (ends 03/16)make f/up with her pulm Liver func tion tests outside reference range 848784823 R94.5 monitor LFTscmp on admit and weekly [id number] Courtney Hilton MD [facility] [address] [place] [address] 03/17/2024 12:00:28 03/18/2024 11:46:19 Coronary arteriosclerosis 05322495 I25.10 Status post KAMRYN to the proximal RCA in 08/2022No recent sxs.Contin ue ASA 81 mg qd and atorvastat in 40 mg qd.Monitor for sxs.F/U with cardio as planned Hypothyroidism 22859783 E03.8 Last TSH 0.48 in 02/2024.In 09/2023 TSH had been low and levothyrox ine changed to 6d/wk, unclear when it got increased again, may have been inpt error.Cont inue levothyrox ine 125 mcg qdWill recheck TSH and FT4 with next labs Gastroesop hageal reflux disease 116935829 K21.9 No current sxs.Contin ue pantoprazo le 40 mg qd.Monitor GI sxs. Migraine 52724783 G43.80 9 Relatively frequent in hx.Follows with neuro.Cont inue Emgality 120 mg monthly and nortriptyl ine 10 mg qhs.Monito r sxs.F/U as planned. Anxiety 97220904 F41.1 Mood good today.Cont inue sertraline 125 mg qd and lorazepam 0.5 mg BID prn.Monito r mood.Consu lt psych prn History of Hodgkin lymphoma 086714830 Z85.71 S/P mantle field radiation back in 1992 in remission for many yearsF/U with oncology prn Pleural effusion 8316845 8 J90 In hx, only minor on this admission. Monitor Obstructiv e sleep apnea syndrome 87217023 G47.33 Improved after gastric bypass surgery, but back on CPAP now.Contin ue CPAP with sleep.F/U with pulmonary. Obesity 497383584 E66.01 Z68.41 As above. Asthma 210259417 J45.40 Almost back to baseline.D /C med list had symbicort and trelegy listed.Pt says symbicort doesn't work, she is on trelegy at home. Actually has a brand new one in her nightstand here.Resta rt trelegy 100/62.5/2 5 mcg qdContinue albuterol q 6 hrs prn.Monito r resp status. Acute resp iratory failure 85320483 J96.01 Due to PNA causing asthma exacerbati on.Now resolved and weaned back to RA.Continu e asthma meds as below.Nadia tor resp status. Pneumonia 343024333 J15. 8 S/P multifocal PNAComplet ed course of abxs with Augmentin 875 mg BID on 03/16.Contin ue asthma meds as below.Very deconditio roberto.Needs PT/OT for strengthen ing, balance, gait training, safety and function.C ontinue fall precaution s.Monitor for safety.Mon itor resp status. Anterior c hest wall pain 711009435 R07.89 Chronic left chest wall pain after thoracotom y.Gets scheduled T6, T7, T8 nerve blocks with [facility] on regular schedule.C ontinue pregabalin 100 mg 5x/d, nortriptyl ine 10 mg qd,and lidocaine patch daily.Didn 't tolerate gabapentin .Monitor sxs and f/u as planned. History of bariatric surgical procedure 768686607 Z98.84 S/P gastric bypass in 2018.Nestor nue ursodiol 500 mg BID.Contin ue to encourage healthy eating and continued wt. loss. Ileitis 30573595 K52.9 Under good control on current regimen.Co ntinue mesalamine 1.5 mg qd.Monitor sxs.F/U with GI as planned. Insulin resistance 33826 5000 E88.810 Sugars mostly WNL inpt, but HgA1C 6.2Encoura ge healthy eating and continued wt. loss.Monit or as outpt. Vitamin D deficiency 347 22370 E56.8 Continue vitamin D 2000 IU qd.Monitor levels prn Anemia 626461460 D64.89 Iron low inpt with high ferritin (likely due to infection) .Will start iron gluconate 324 mg qd. with vitamin C 500 mg qd for absorption .Monitor labs [id number] NETO LIAO NP [facility] [address] [place] [address] 03/24/2024 12:46:00 03/25/2024 13:32:28 Pneumonia 909334775 J15.8 S/P multifocal PNAComplet ed course of abxs with Augmentin 875 mg BID on 03/16.Contin ue asthma meds as below.Very deconditio roberto.Needs PT/OT for strengthen ing, balance, gait training, safety and function.G oal is to return home.Nestor nue fall precaution s.Monitor for safety.Mon itor resp status. Acute resp iratory failure 05975536 J96.01 Due to PNA causing asthma exacerbati on.Now resolved and weaned back to RA.Continu e asthma meds as below.Nadia tor resp status. Pleural effusion 7944372 8 J90 In hx, only minor on this admission. Monitor Asthma 389500438 J45.40 Almost back to baseline.D /C med list had symbicort and trelegy listed.Pt says symbicort doesn't work, she is on trelegy at home. Actually has a brand new one in her nightstand here.Resta rt trelegy 100/62.5/2 5 mcg qdContinue albuterol q 6 hrs prn.Monito r resp status. Anterior c hest wall pain 966039199 R07.89 Chronic left chest wall pain after thoracotom y.Gets scheduled T6, T7, T8 nerve blocks with [facility] on regular schedule.C ontinue pregabalin 100 mg 5x/d, nortriptyl ine 10 mg qd,and lidocaine patch daily.Didn 't tolerate gabapentin .Monitor sxs and f/u as planned. Coronary arteriosclerosis 32472874 I25.10 Status post KAMRYN to the proximal RCA in 08/2022No recent sxs.Contin ue ASA 81 mg qd and atorvastat in 40 mg qd.Monitor for sxs.F/U with cardio as planned Hypothyroidism 21217250 E03.8 Last TSH 0.48 in 02/2024.In 09/2023 TSH had been low and levothyrox ine changed to 6d/wk, unclear when it got increased again, may have been inpt error.Cont inue levothyrox ine 125 mcg qdWill recheck TSH and FT4 with next labs Gastroesop hageal reflux disease 436281469 K21.9 No current sxs.Contin ue pantoprazo le 40 mg qd.Monitor GI sxs. Insulin resistance 39146 5000 E88.810 Sugars mostly WNL inpt, but HgA1C 6.2Encoura ge healthy eating and continued wt. loss.Monit or as outpt. Anemia 729583212 D64.89 Iron low inpt with high ferritin (likely due to infection) .Will start iron gluconate 324 mg qd. with vitamin C 500 mg qd for absorption .Monitor labs Migraine 58387197 G43.80 9 Relatively frequent in hx.Follows with neuro.Cont inue Emgality 120 mg monthly and nortriptyl ine 10 mg qhs.Monito r sxs.F/U as planned. Anxiety 56338226 F41.1 Mood good today.Cont inue sertraline 125 mg qd and lorazepam 0.5 mg BID prn x 14 days, re-eval 03/28Monito r mood.Consu lt psych prn Ileitis 68122348 K52.9 Under good control on current regimen.Co ntinue mesalamine 1.5 mg qd.Monitor sxs.F/U with GI as planned. History of Hodgkin lymphoma 593467834 Z85.71 S/P mantle field radiation back in 1992 in remission for many yearsF/U with oncology prn Obstructiv e sleep apnea syndrome 77942630 G47.33 Improved after gastric bypass surgery, but back on CPAP now.Contin ue CPAP with sleep.F/U with pulmonary. History of bariatric surgical procedure 129529832 Z98.84 S/P gastric bypass in 2018.Nestor nue ursodiol 500 mg BID.Contin ue to encourage healthy eating and continued wt. loss. Obesity 280227542 E66.01 Z68.41 As above. Vitamin D deficiency 347 17265 E56.8 Continue vitamin D 2000 IU qd.Monitor levels prn Dizziness 732670310 R42 When OOB, usually goes away.Somet imes she feels her HR go up, which then makes her feel more SOB.Labs goodVSSChe ck orthostati c VS x 3Monitor Health Concerns Section Related Observation LastModified by Organization Detai ls LastModified Time None Recorded Concern Status LastModified by Organization Details LastModified Time None Recorded Payers Encounter Date Sequence Insurance Name Policy Number Policy Chilel Covered Member ID Chilel Member ID Guarantor Name 03/24/2024 1 [place] (MEDICARE REPLACEMENT HMO) [id number] Rose Marie Ross [id number] Rose Marie Ross Notes Date Note Type Note Provider Name and Address Organization Details Recorded Time 5 text/html Rose Marie is seen today for an acute visit. She is a 58 yo woman who is here for rehab after several recent hospitalizations, most recently for a multifocal PNA with pleural effusion and asthma exacerbation with hypoxia. Per d/c summary:Rose Marie Ross is a 58 year old female with a PMH significant for asthma,,moderate aortic and mitral valve stenosis, Hodgkin lymphoma s/p mantle radiation, left thoracentesis and pleurodesis complicated by recurrent pleural effusions s/p left minithoracotomy with wedge resection of the PRASHANT and excision of the right groin lymph node on 03/12/23 ([facility] - all biopsies negative for malignancy). A complication of that procedure was left chest wall pain syndrome requiring T6-8 nerve blocks every month via [facility].She was in her normal state of [facility] however her found her on the couch with decreased responsiveness, vomitingand therefore she was brought to [facility] where she was admitted for 5 days and treated for right middle lobe pneumonia, aspiration pneumonia and acute hypoxic respiratory failure. Sputum cultures showed safia and she was discharged on Bactrim, fluconazole and 4 LPM of O2 (not previously on O2 at home).She was discharged at that time. She wasdischarged to [address] [place] [address]{03/07} around 7pm.After her admission therepacheco developed severe SOB after a coughing fit and was transferred to [facility] on 03/09/24. In the ED a CT of the chest showedmulti focal pneumoniaand subsequently the client developed worsening hypoxia and currently requiredhigh flow nasal cannula at 40L. She was also found to be having an exacerbation of her asthma. She had leukocytosis of 16.2, her COVID/flu//RSV panels were negative. She was started on Zosyn and antibiotic coverage was broadened with Vancomycin that was subsequently discontinued after a negative MRSA swab. Azithromycin and steroids were added to assist with the asthma exacerbation. Course complicated by urinary retention that subsequently resolved without need for a Mcknight catheterTransferred here on 03/15/23 Since admission she has been working with rehab and getting stronger slowly.She has been weaned back to RA.She still feels SOB at times, lio. with activity. Last used nebulizer 2 days ago.VSSLabs 03/23 stable.Appetite improving.No other complaints except feeling dizzy at times, mostly when OOB. Usually goes away on its own.Case discussed with nsg., no concerns at present. Her PMH includes CAD, asthma, hypothyroidism, moderate aortic and mitral valve stenosis, Hodgkin's lymphoma status post mantle radiation, left thoracentesis and pleurodesis complicated by recurrent pleural effusions s/p left mini-thoracotomy with wedge resection of left upper lobe and excision of right groin lymph node on 03/12/2023, GERD, insulin resistance, and chronic chest wall pain since thoracotomy. NETO LIAO NP [address] [facility], [address], [facility] [place], [address], [facility] [employer] Card To Get Approved For 03/24/2024 14:27:36 OBGyn Episode No OBEpisode recorded.
--- OUTSIDE RECORDS SUMMARY | 2024-04-22 11:37 | XMS_ITS | Encounter Summary ---
Author Organization [facility] Address [address] [place] [address] Care Team Providers Care Transport Pilot Name Role Phone Huong Johnson MD Primary Care Provider [phone] Encounter Details Date Type Department Care Team (Late st Contact Info) Description 03/18/2024 Lab Requisition [facility] - Main Lab [address] [facility] [place] [address] Darien Smith MD [address] [place] [address] [address] [place], [address] Anemia, unspecified Social History Tobacco Use [...] for your loved ones. For example, child day care teacher or elderly care for an older [...] Associated Diagnosis Comments COMPLETE BLOOD COUNT Routine 03/18/2024 6:30 AM EST Anemia, unspecified THYROID STIMULATING HORMONE Routine 03/18/2024 6:30 AM EST Anemia, unspecified THYROXINE FREE Routine 03/18/2024 6:30 AM EST Anemia, unspecified COMPREHENSIVE METABOLIC PANEL Routine 03/18/2024 6:30 AM EST Anemia, unspecified documented in this encounter Results * Thyroxine free (03/18/2024 6:30 AM EST) Free T4 1.27 0.70 - 1.80 ng/dL LAB CHEMISTRY METHOD 03/18/2024 12:02 PM EST [facility] Blood Venous blood specimen / Unknown Venipuncture / Unknown 03/18/2024 6:30 AM EST 03/18/2024 10:39 AM EST us Darien Smith MD LAB BLOOD ORDERABLES Final Resul t Performing Organization Address City/[facility]/ZIP Co de Phone Number [facility] [address] [place] [address], [place] [phone] * (ABNORMAL) Thyroid stimulating hormone (03/18/2024 6:30 AM EST) [facility] TSH 5.29(H) 0.40 - 4.00 mcIU/mL LAB CHEMISTRY METHOD 03/18/2024 12:02 PM EST [facility] Blood Venous blood specimen / Unknown Venipuncture / Unknown 03/18/2024 6:30 AM EST 03/18/2024 10:39 AM EST us Darien Smith MD LAB BLOOD ORDERABLES Final Resul t [facility] [address] [place] [address], [place] [phone] * (ABNORMAL) Comprehensive metabolic panel (03/18/2024 6:30 AM EST) [facility] Sodium 140 133 - 145 mmol/L LAB CHEMISTRY METHOD 03/18/2024 12:01 PM EST [facility] Potassium 5.5 3.5 - 5.5 mmol/L LAB CHEMISTRY METHOD 03/18/2024 12:01 PM [facility] Chloride 107 96 - 110 mmol/L LAB CHEMISTRY METHOD 03/18/2024 12:01 PM [facility] CO2 26 21 - 32 mmol/L LAB CHEMISTRY METHOD 03/18/2024 12:01 PM [facility] Anion Gap 7 3 - 11 LAB CHEMISTRY METHOD 03/18/2024 12:01 PM [facility] Glucose 75 70 - 100 mg/dL LAB CHEMISTRY METHOD 03/18/2024 12:01 PM [facility] BUN 9 5 - 25 mg/dL LAB CHEMISTRY METHOD 03/18/2024 12:01 PM [facility] Creatinine 0.78 0.50 - 1.10 mg/dL LAB CHEMISTRY METHOD 03/18/2024 12:01 PM [facility] eGFR 89 >=60 mL/min/1. 73m2 LAB CHEMISTRY METHOD 03/18/2024 12:01 PM [facility] Comment:Calculation based on the??Chronic Kidney Disease Epidemiology Collaboration (CKD-EPI) equation refit??without adjustment for race. BUN/Creatinine Ratio 11.5 LAB CHEMISTRY METHOD 03/18/2024 12:01 PM [facility] Calcium 8.6 8.5 - 10.5 mg/dL LAB CHEMISTRY METHOD 03/18/2024 12:01 [facility] AST (SGOT) 22 10 - 42 unit/L LAB CHEMISTRY METHOD 03/18/2024 12:01 [facility] ALT (SGPT) 14 10 - 60 unit/L LAB CHEMISTRY METHOD 03/18/2024 12:01 PM [facility] Alkaline Phosphatase 136(H) 42 - 121 unit/L LAB CHEMISTRY METHOD 03/18/2024 12:01 PM [facility] Total Protein 5.7(L) 6.0 - 8.0 g/dL LAB CHEMISTRY METHOD 03/18/2024 12:01 PM [facility] Albumin 2.6(L) 3.2 - 5.0 g/dL LAB CHEMISTRY METHOD 03/18/2024 12:01 PM [facility] Total Bilirubin 0.5 0.0 - 1.4 mg/dL LAB CHEMISTRY METHOD 03/18/2024 12:01 PM [facility] Blood Venous blood specimen / Unknown Venipuncture / Unknown 03/18/2024 6:30 AM EST 03/18/2024 10:39 AM EST us Darien Smith MD LAB BLOOD ORDERABLES Final Resul t [facility] [address] [place] [address], [place] [phone] * (ABNORMAL) Complete blood count (03/18/2024 6:30 AM EST) WBC 13.0(H) 4.8 - 10.8 K/mcL LAB HEMETOLOGY METHOD 03/18/2024 11:21 AM [facility] RBC 3.70(L) 3.80 - 4.80 M/mcL LAB HEMETOLOGY METHOD 03/18/2024 11:21 AM [facility] Hemoglobin 10.3(L) 11.5 - 16.0 g/dL LAB HEMETOLOGY METHOD 03/18/2024 11:21 AM [facility] Hematocrit 33.4(L) 35.0 - 47.0 % LAB HEMETOLOGY METHOD 03/18/2024 11:21 AM [facility] MCV 90.8 79.0 - 98.0 FL LAB HEMETOLOGY METHOD 03/18/2024 11:21 AM [facility] MCH 28.0 27.0 - 32.0 pcg LAB HEMETOLOGY METHOD 03/18/2024 11:21 AM [facility] MCHC 30.8(L) 32.0 - 37.0 g/dL LAB HEMETOLOGY METHOD 03/18/2024 11:21 AM EST [facility] RDW 15.1(H) 11.0 - 15.0 % LAB HEMETOLOGY METHOD 03/18/2024 11:21 AM [facility] Platelets 608(H) 130 - 400 K/mcL LAB HEMETOLOGY METHOD 03/18/2024 11:21 AM [facility] MPV 11.2(H) 7.0 - 11.0 FL LAB HEMETOLOGY METHOD 03/18/2024 11:21 AM [facility] NRBC 0.0 <1.0 % LAB HEMETOLOGY METHOD 03/18/2024 11:21 AM [facility] NRBC Absolute 0.00 <0.10 K/mcL LAB HEMETOLOGY METHOD 03/18/2024 11:21 AM [facility] Blood Venous blood specimen / Unknown Venipuncture / Unknown 03/18/2024 6:30 AM EST 03/18/2024 10:39 AM EST us Darien Smith MD LAB BLOOD ORDERABLES Final Resul t [facility] [address] [place] [address], documented in this encounter Visit Diagnoses Diagnosis Anemia, unspecified documented in this encounter Care Teams Transport Pilot Relationship Specialty Start Date End Date Huong Johnson MD [address] [place] [address] PCP - General Internal Medicine 03/03/24 documented as of this encounter
--- OUTSIDE RECORDS SUMMARY | 2024-04-22 11:37 | XMS_ITS ---
Author Organization [facility] Address [address] [place] [address] Care Team Providers Care Supervisor Rolling Room Name Role Phone ADRIAN CORDERO Primary Care Provider Tessa Lemus Unavailable [phone] REASON FOR VISIT LAB SLIP FOR DIABETES TEST Encounters Encounter Location Date Provider Diagnosis [facility] [address] [facility] [address] [place] [address] 02/23/2024 Tessa Dawson Glycosuria R81 Assessments Encounter Date Diagnosis (ICD Code) Assessment Notes Treatment Notes Treatment Clinical Notes Section Notes 02/23/2024 Glycosuria (ICD-10 - R81) Plan Of Treatment Pending Test Test Name Order Date CBC, Platelet, No Differential-[id number] Hgb A1c with eAG Estimation-[id number] 02/22 Lipid Panel-[id number] 02/23/2024 Comp. Metabolic Panel [id number] 2023 Next Appt Details Provider Name:Tessa moise, 02/27/2025 01:00:00 PM, [address] [facility], [address], [place], [address], Progress Notes * ASHLEY HAYDENOB:[birth year] (58 yo F)Acc No.[id number]:02/23/2024 Patient:PILO LEON :1965???Age:58 Y???Sex:Female Address:[address] [place] [address], [address] Subjective: * Chief Complaints: * ???LAB SLIP FOR DIABETES NAGA T * Medical History:? * Surgical History:? * Hospitalization/Major Diagno stic Procedure:? * Medications:? Objective: * Vitals:? * Physical Examination:? Assessment: * Assessment: 1.?Glycosuria - R81??? Plan: * Treatment: * Procedure Codes:? * true * Date:? Generated for Corby gonzalez/Jose/Benitting on:?04/22/2024 11:37 AM EST
--- OUTSIDE RECORDS SUMMARY | 2024-04-22 11:37 | XMS_ITS | Continuity of Care Document ---
Author Organization [facility] Address [address] [place] [address]- Care Team Providers Care Surgical Brace Maker Name Role Phone Huong Johnson MD Primary Care [id number] Date[facility]s): 04/04/24 - 04/11/24 [facility] [address] [place], [place] [address] Attending Physician: Huong Johnson MD Encounter Type: Office Visit Allergies, Adverse Reactions, Alerts Substance Criticality Severity [...] vaccine, inactivated 6 12/30/11 Gi dayana SARS-CoV-2(COVID-19)mRNA-LNP vac([id number]) 12/26/23 Recorded tetanus/diphtheria/pertussis, acel(Tdap) 7 02/16/23 Given tetanus/diphtheria/pertussis, acel(Tdap) 03/01/12 Given [id number] 12y+ bivalent booster vax 03/07/22 Recorded SARS-CoV-2 mRNA ([id number]) vax 09/08/21 Recorded SARS-CoV-2 (COVID-19) mRNA BNT-162b2 [...] 11/03/16 Recorde d 1Result Comment: Done at [facility] 2Result Comment: [facility] [id number] 3Result Comment: [facility] [id number] 4Result Comment: [12/01/2016] [facility] 5Result Comment: [02/14/2013] eh 6Admin Note: work 7Result Comment: [id number] 8Result Comment: Covid 19 9Result Comment: Covid 19 10Result Comment: Done at [facility] 11Result Comment: [12/01/2016] [facility] Medications albuterol CFC free 90 mcg/inh inhalation aerosol 2, puffs, Inhalation, Every 6 hours, PRN, # 8.5 Gm, Refills 2, Tot. Refills 2, Maintenance, 05/17/2409:25:00 AM EDT, Inhaler, Route to Pharmacy Electronically, NCPDP_[id number], [facility] #[id number], 157.4, cm, 05/18/23 9:45:00 EDT, Height, 93.9, [...] 0 Refills, Soft Stop, 03/09/24 6:01:00AM EST, [facility] #[id number], Partial fill upon patient request if the [...] Refills, Soft Stop, 03/09/24 6:02:00 AM EST, [facility] #[id number], Partial fill upon patient request if the [...] Refills, Maintenance, 04/10/24 12:27:00 PM EST, Tablet, [facility] #[id number], dose reduced from 137 to 125 mcg, [...] Refills, Maintenance, 02/08/24 11:36:00 AM EST, Tablet, [facility] #[id number], Partial fill upon patient request if the [...] Once, changed in 2014, 0 Refills, Maintenance, 10/1/10 10:16:00 AM EDT Start Date: 12/07/09 Status: Ordered Repeat number: 1 nortriptyline 10 mg oral capsule See Instructions, TAKE 1 CAPSULE BY MOUTH DAILY AT BEDTIME, # 90 capsule, Refills 3, Tot. Refills 3, Maintenance, 11/28/23 10:32:00 PM EDT, Instructions Replace Required Details, Route to Pharmacy Electronically, [facility] #[id number], 157.4, cm, 11/05/23 12:44:00 EDT, Height, 93.5, [...] 1 Refills, Maintenance, 04/10/24 12:26:00 PM EST, [facility] #[id number], pls dispense as 90 day supplies, 157.4, [...] 1 Refills, Maintenance, 04/10/24 12:26:00 PM EST, [facility] #[id number], pls dispense as 90 day supplies, 157.4, [...] Active Tubular adenoma of colon Confirmed Active Vital Signs Most recent to oldest [Reference Range]: 1 Height 157.4 cm (04/04/24 11:46 AM) Weight 101.9 kg (04/04/24 11:46 AM) Oxygen Saturation [94-100 %] 99 % (04/04/24 11:46 AM) Pulse Rate [55-90 bpm] 87 bpm (04/04/24 11:46 AM) Body Mass Index [18.5-24.99 kg/m2] 41.13 kg/m2 *>HHI* (04/04/24 11:46 AM) Blood Pressure [90-138/55-84 mm Hg] 138/ 78mm Hg (04/04/24 11:46 AM) Mode of Delivery (Oxygen) Room air (04/04/24 11:46 AM) Blood pressure sites Arm, left (04/04/24 11:46 AM) Dry Weight 101.9 kg (04/04/24 11:46 AM) Weight Obtained Via Standing scale (04/04/24 11:46 AM) Dry Weight Obtained Via Standing scale (04/04/24 11:46 AM) Social History Social History Type Response Smoking Status Never smoker entered on: 03/16/13 Sex Sex Representation Female (finding) Note * Dorene Devlin: PERFORM Event Display: Patient Education/Instruction Authored Date: Ambulatory Adult Visit Summary [facility] [address] [place] [address] Name: PILO HAYDEN : 1965?? Visit: 04/04/2024 11:07?? Ambulatory Visit Instructions ?? Your Care Team Primary Care Provider Huong Johnson MD? This Visit Provider Huong Johnson MD Vitals Signs Pulse Rate: 87 bpm Height: 157.4 cm Systolic Blood Pressure: 138 mm Hg Weight: 101.9 kg Diastolic Blood Pressure: 78 mm Hg Body Mass Index:??41.13 kg/m2??Critical Oxygen Saturation: 99 % Body surface area: 2.11 What to do next Instructions From Your Provider do chest xray??in early april?? we will book for CT chest in late may ?? follow with /??faye and?? PET when pneumonia resolves ?? see for problems with swallowing. if choking/ food gets stuck. Scheduled Follow-Up Appointments Thursday 1:00 PM EDT ?? With: Alex MCCONNELL, Huong Esteves Where: [facility] [address] [place] [address]- Status: Pending Thursday 3:30 PM EDT ?? With: Neetu YU, Latisha Ewing Where: [facility] [address] [facility] 3rd Floor[address] [place] [address]- Status: Pending Future Orders CT Chest W/O Contrast, Routine, Reason for Exam: Other:, followup for resolution of multifocal pneumonia, No Contrast, Once, *Est. 05/30/24 +/- 7 days XR Chest 2 Views Frontal and Lat, Routine, Reason for Exam: Other:, followup for resolution, Patient Does Not Need Assistance, Once, *Est. 04/04/24 C. difficile Rapid Toxin Assay - Routine, Once, 07/29/23 11:14:00 EDT, [facility], Stool?? Medications The list below reflects the information in our records and provided by you today along with any changes made during this visit. Please continue your medications until treatment is completed or stopped by your provider. If this is different from the information you have or there are other questions,please contact the prescribing provider. What How Much When Why Instructions Unchanged Albuterol (albuterol CFC free 90 mcg/ inh inhalation aerosol) 2 puff(s) Inhalation Every 6 hours as needed for for wheezing Duration: 30 Days Unchanged Aspirin (aspirin 81 mg oral delayed release tablet) 1 tab(s) Oral Daily Unchanged Atorvastatin (atorvastatin 40 mg oral tablet) 1 tab(s) Oral Daily Unchanged Budesonide-Formoterol (Symbicort 80mcg/ 4.5mcg Inhaler) Unchanged Cholecalciferol (Vitamin D3 oral tablet) 1 tab(s) Oral Daily 2000 units ?? Unchanged fluticason/ umeclidinium/ vilant (Trelegy Ellipta 100 mcg-62.5 mcg-25 mcg/ inh inhalationpowder) 1 inhalation Inhalation Daily at the same time every day ?? Unchanged galcanezumab (Emgality Prefilled Pen 120 mg/ mL subcutaneous solution) 120 Milligram Subcutaneous Injection Every 28 days Maintenance Dose ?? Unchanged galcanezumab (Emgality Prefilled Pen 120 mg/ mL subcutaneous solution) 240 Milligram Subcutaneous Injection Once Loading Dose ?? Unchanged Guaifenesin (Guaiatussin) 400 Milligram Oral 4 times a day Unchanged Levonorgestrel (Mirena 52 mg intrauteral device) 1 Each Once changed in 2014 ?? Unchanged Levothyroxine (Levoxyl 0.125 mg oral tablet) 1 tab(s) Oral Daily Duration: 90 Days Unchanged Levothyroxine (Levoxyl 0.125 mg oral tablet) 1 tab(s) Oral Daily Duration: 90 Days Unchanged Lidocaine Topical (lidocaine 1.8% topical film) 1 patch(es) Topically Daily leave on up to 12 hours ?? Unchanged Lorazepam (LORazepam 0.5 mg oral tablet) 1 tab(s) Oral Twice a day as needed for as needed for anxiety Anxiety Unchanged Meclizine (meclizine 12.5 mg oral tablet) TAKE 1 TO 2 TABLETS BY MOUTH THREE TIMES DAILY FOR 10 DAYS NEEDED FOR DIZZINESS ?? Unchanged Mesalamine (Apriso 0.375 g oral capsule, extended release) 4 capsule Oral Daily in the morning Unchanged Nortriptyline (nortriptyline 10 mg oral capsule) See instructions TAKE 1 CAPSULE BY MOUTH DAILY AT BEDTIME ?? Unchanged Pantoprazole (pantoprazole 40 mg oral delayed release tablet) 1 tab(s) Oral Daily Unchanged Pregabalin (pregabalin 50 mg oral capsule) 2 capsules Oral 5 times a day Unchanged Sertraline (sertraline 100 mg oral tablet) 1 tab(s) Oral Daily Duration: 90 Days total daily dose 125 mg ?? Unchanged Sertraline (sertraline 100 mg oral tablet) 1 tab(s) Oral Daily Duration: 90 Days total daily dose 125 mg ?? Unchanged Sertraline (sertraline 25 mg oral tablet) 1 tab(s) Oral Daily Duration: 90 Days ia ddition to 100 mg- total daily dose 125 mg ?? Unchanged Sertraline (sertraline 25 mg oral tablet) 1 tab(s) Oral Daily Duration: 90 Days ia ddition to 100 mg- total daily dose 125 mg ?? Unchanged Ursodiol (ursodiol 500 mg oral tablet) 1 tab(s) Oral Twice a day Medications and Immunizations Administered Medications Given During Visit No medications given during this visit.?? Allergies (NKA means No Known Allergies) Gastrografin Percocet 5/325??(itching) Vicodin??(itch) oxyCODONE??(Itchy, Skin rash) sulfonamides??(hives) Common Emergency Awareness Tips IS IT A STROKE? Act FAST and Check for these signs: FACE Does the face look uneven? ARM Does one arm drift down? SPEECH Does their speech sound strange? TIME Call at any sign of stroke ?? Heart Attack Signs Chest discomfort: Most heart attacks involve discomfort in the center of the chest and lasts more than a few minutes, or goes away and comes back. It can feel like uncomfortable pressure, squeezing, fullness or pain. Discomfort in upper body: Symptoms can include pain or discomfort in one or both arms, back, neck, jaw or stomach. Shortness of breath: With or without discomfort. Other signs: Breaking out in a cold sweat, nausea, or lightheaded. Remember, MINUTES DO MATTER. If you experience any of these heart attack warning signs, call to get immediate medical attention! ?? Smoking can increase your chances of developing chronic health problems and can cause harmful effects to other family members in your house. If you smoke, you are strongly encouraged to quit. Please call [facility] Link at [phone] or [phone]-Cognea ([phone]) or log in to [email or web address] for referrals to smoking cessation programs. ?? The National Suicide Prevention Hotline is available 29/09 if you or someone you know needs to find a reason to keep living. By calling 8-388-204-Style on Screen (7436) you'll be connected to a skilled, trained counselor at a crisis center in your area. [facility] Portal You can view and manage your care through the patient portal or by using a health care dipak of your choosing. [employer] is a website that allows you to securely view your medical information including your hospital discharge summary, office visit summaries, medications and follow-up visits. You can also request appointments, renew medications, and request access to your medical information using a health care dipak of your choosing, or just ask a question. You can enroll at [email or web address] or register during your next office visit. [facility], in keeping with [facility] guidance, no longer requires face masks for staff, patientsor visitors in most situations. Similiar to time spent indoors at other locations, there is the chance that you were exposed to repiratory viruses during your time with us (such as flu or COVID-19). If you develop symptoms concerning for a viral respiratory infection, please seek testing (and treatment if indicated) from your medical provider or home test kit. ?? Disclaimer: The information provided is of a general nature and is intended to be used in conjunction with the recommendations and advice of your health care practitioner. Every effort has been made to ensure that the information provided is accurate and complete at the time it is provided to you however, as your needs change, or, as new information becomes available, different or additional instructions may be required. ?? If you have questions, please consult with your primary care provider or pharmacist, as appropriate. This information is not intended to serve as substitution for assessment and evaluation by a qualified health care provider. If you do not have a primary care provider, you may find a [facility] provider by calling [facility] at [phone]. Patient Care team information Care Team Personnel Name: Alex MCCONNELL, Huong Esteves Position: [facility] Physician - Primary Care Member Role: PCP Address: [address] [place] [address] Adult & Pediatric [place], [place] [address] Telecom: Name: Deann Sethi RN Position: [facility] RN Member Role: Primary Care Nurse Name: Ernestine Norris RN Position: [facility] RN Member Role: Primary Care Nurse Name: Mariela Wild MD Position: [facility] Physician - Endocrinology Member Role: Lifetime Consulting Physician Name: Nahun Garcia RN Position: [facility] RN Member Role: Primary Care Nurse Care Team Related Persons Name: SIOMARA HAYDEN Insurance Providers Guarantor name: PILO JACKELYN Health Plan Information #: 1 Payer: [employer] Member Number: [id number] Policy Number: NA Group Number: [id number] Health Plan Information #: 2 Payer: [employer] Member Number: [id number] Policy Number: NA Group Number: [id number]
--- OUTSIDE RECORDS SUMMARY | 2024-04-22 11:38 | XMS_ITS | Data Portability ---
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 Name Role Phone [facility] [facility] OTHER ADRIAN CORDERO Primary Care Provider Assessment Encounter Date Assessment Date Assessment LastModified [...] Time Liver function tests outside reference range 996338321 Active 2024 [facility] [address], [address], [place], [address], [facility] [employer] [facility] 5 07:37:37 Allergic rhinitis 76900166 Active 2024 [facility] [address], [address], [place], [address], [facility] [employer] 5 07:37:46 Anxiety 68263529 Active 2024 [facility] [address], [address], [place], [address], [facility] [employer] 5 07:37:54 Asthma 768057406 Active [address]24 [facility] [address], [address], [place], [address], [facility] [employer] 5 07:38:02 Gastroesophag eal reflux disease 944838058 Active [address] [facility] [address], [address], [place], [address], [facility] 5 07:38:10 History of Hodgkin lymphoma 945686503 Active 2024 [facility] [address], [address], [place], [address], [facility] 5 07:38:45 Migraine 68984556 Active 2024 [facility] [address], [address], [place], [address], [facility] 5 07:38:53 Mood disorder 38719363 Active 2024 [facility] [address], [address], [place], [address], [facility] 5 07:39:02 Obstructive sleep apnea syndrome 50759225 Active 2024 [facility] [address], [address], [place], [address], [facility] 5 07:39:13 Hypothyroidis m 01142287 Active 2024 [facility] [address], [address], [place], [address], [facility] [employer] [facility] 5 07:39:22 Obesity 969982608 Active [address]24 [facility] [address], [address], [place], [address], [facility] 5 07:39:38 Adenomatous polyp of colon 484597953 Active [address]24 [facility] [address], [address], [place], [address], [facility] 5 07:40:10 Coronary arteriosclero sis 02256321 Active 2024 [facility] [address], [address], [place], [address], [facility] 5 07:45:49 Acute respiratory failure 62445999 Active 2024 [facility] [address], [address], [place], [address], [facility] 5 07:46:00 Pneumonia 729494238 Active [address] [facility] [address], [address], [place], [address], [facility] 5 07:46:08 Pleural effusion 70101800 Active [address] [facility] [address], [place], [address], [facility] 5 07:46:27 Atypical chest pain 359812310 Active 2024 [facility] [address] [facility], [address], [place], [address], [facility] 5 08:00:44 Enteritis of intestine 7019949914 Active 2024 [facility] [address] [facility], [address], [place], [address], [facility] 5 08:01:43 Anterior chest wall pain 593363080 Active 2024 Courtney Hilton MD [address] [place] [address], [address], [place], [address], [facility] 5 13:31:52 Ileitis 95268580 Active 2024 Courtney Hilton MD [address] [place] [address] St, [address], [place], [address], [facility] 5 14:10:16 Insulin resistance 715863000 Active 2024 Courtney Hilton MD [address], [address], [place], [address], [facility] 5 14:16:36 Anemia 697959273 Active 2024 Courtney Hilton MD [address] [facility], [address], [place], [address], [employer] 5 14:26:33 Problem Notes None recorded. Medical Equipment None Reported. Allergies Allergen ID Allergen Name Allergen Category Reaction Reaction Severity Criticality Documentation Date Start Date Code Code System Note Provider Name and Address Organization Details Recorded Time 21520 oxycodone medicatio n itching rash Not available Not available high 03/16/20242023 7804 RxNorm Not Available Not Available Not Available 39267 Gastrogra fin medicatio n Not available Not available Not available 03/16/2024 61691 5 RxNorm Not Available Not Available Not Available 05487 Substance with sulfonami de structure and antibacte rial mechanism of action (substanc e) medicatio n Not available Not available Not available 03/16/2024 33033 8003 SNOMED Not Available Not Available Not Available 62312 acetamino phen / oxycodone medicatio n Not available Not available Not available 03/16/2024 71460 3 RxNorm Not Available Not Available Not Available 03806 diatrizoa te meglumine medicatio n Not available Not available Not available 03/17/2024 3320 RxNorm Not Available Not Available Not Available 29589 acetamino phen / hydrocodo ne medicatio n hives Not available high 03/17/20242023 75862 2 RxNorm Not Available Not Available Not Available Vitals Date Recorded Body weight Body mass index (BMI) Body height Heart rate Respiratory rate Body temperature Oxygen saturation Oxygen saturation in Arterial blood by Pulse oximetry Systolic blood pressure Diastolic blood pressure Provider Name and Address Organization Details Last Updated DateTime 5 088518. 72 g 42.6 kg/m2 154.94 cm 76 /min 18 /min 98.6 [degF] 95 % 95 % 128 mm[Hg] 71 mm[Hg] Courtney Hilton MD [address] [facility], [address], [place], [address], [employer] 5 12:31:48 Date Recorded Body height Heart rate Respiratory rate Body temperature Oxygen saturation Oxygen saturation in Arterial blood by Pulse oximetry Systolic blood pressure Diastolic blood pressure Provider Name and Address Organization Details Last Updated DateTime 5 154.94 cm 80 /min 18 /min 98.2 [degF] 97 % 97 % 135 mm[Hg] 70 mm[Hg] NETO LIAO NP [address] [facility], [address], [place], [address], [facility] 5 14:13:38 Date Recorded Body height Body mass index (BMI) Body weight Heart rate Respiratory rate Body temperature Oxygen saturation Oxygen saturation in Arterial blood by Pulse oximetry Systolic blood pressure Diastolic blood pressure Provider Name and Address Organization Details Last Updated DateTime 5 154.94 cm 41.2 kg/m2 76208.1 4 g 87 /min 18 /min 97.6 [degF] 99 % 99 % 124 mm[Hg] 70 mm[Hg] JAZMIN MOLINA [address] [facility], [address], [place], [address], [facility] 5 21:27:51 Social History Question Answer Notes LastModified by Organizat ion Details LastModified Time Tobacco Smoking Status Never Smoker Courtney Hilton MD [address] [facility], [address], [place], [address], [facility] 03/17/2024 12:59:09 Do You Have An [...] Do You Have A Medical Power Of Tin Roofer? Yes Not Invoked Information not available 03/17/2024 [...] Details Recorded Time Tdap 3 completed Donavon Sushil-Caal [facility] 03/17/2024 16:04:28 pneumococcal polysaccharide PPV23 7 completed Donavon Jeromes-Caal [facility] 03/17/2024 16:04:40 influenza, unspecified formulation 6 completed Donavon Jeromes-Caal [facility] 03/17/2024 16:04:55 influenza, unspecified formulation 7 completed [facility] 16:04:59 influenza, unspecified formulation 8 completed Donavon Jeromes-Caal [facility] 03/17/2024 16:05:04 influenza, unspecified formulation 1 completed Donavon Jeromes-Caal [facility] 03/17/2024 16:05:08 influenza, unspecified formulation 2 completed Donavon Jeromes-Caal null, [facility] 03/17/2024 16:05:12 MMRV 7 completed [facility] 03/17/[facility]24 16:05:27 MMRV 7 completed [facility] 03/17/2024 16:05:32 SARS-COV-2 (COVID-19) vaccine, UNSPECIFIED 0 completed [facility] 03/17/2024 16:05:44 SARS-COV-2 (COVID-19) vaccine, UNSPECIFIED 1 completed Donavon Parsons [facility], [facility] 03/17/2024 16:05:47 SARS-COV-2 (COVID-19) vaccine, UNSPECIFIED 1 completed Donavon Parsons [facility], [facility] 03/17/2024 16:05:52 SARS-COV-2 (COVID-19) vaccine, UNSPECIFIED 2 completed Donavon Parsons [facility], [facility] 03/17/2024 16:05:56 SARS-COV-2 (COVID-19) vaccine, UNSPECIFIED 2 completed Donavon Parsons [facility], [facility] 03/17/2024 16:06:02 SARS-COV-2 (COVID-19) vaccine, UNSPECIFIED 4 completed Donavon Parsons [facility] 03/17/2024 16:06:06 zoster, unspecified formulation 0 completed Donavon Parsons [facility] 03/17/2024 16:06:19 Past Encounters Encounter ID Performer Location Encounter Start Date Encounter Closed Date Diagnosis/Indication Diagnosis SNOMED-CT Code Diagnosis ICD10 Code Diagnosis Note [id number] [facility] [address] [place] [address] 03/16/2024 07:35:02 03/17/2024 10:55:49 Coronary arteriosclerosis 21368816 I25.10 Status post KAMRYN to the proximal RCA back in [place] ue aspirin and atorvastat inmonitor cp Hypothyroidism 93869315 E03.9 Continue levothyrox ine 125 mcg dailymonit or tsh/t4 Gastroesop hageal reflux disease 325401880 K21.9 continue pantoprazo lemonitor ss Migraine 17379737 G43.90 9 w/ auramonito r Anxiety 42368834 F41.9 Continue sertraline , and as needed lorazepamm onitor mood and affectpsyc h prn Atypical chest pain 1025 51880 R07.89 Chronic left chest wall pain after thoracotom yGets scheduled T6, T7, T8 nerve blocks with [facility] almost monthly.Co ntinue pregabalin and nortriptyl ine Enteritis of intestine 5309935398 K52.9 Continue home mesalamine and ursodiol History of Hodgkin lymphoma 078077060 Z85.71 status post mantle field radiation back in 1992 in remission for many years 4 excisional biopsy of a right groin lymph node, and left upper lung lobe mini thoracotom y after a suspicious PET scan (both biopsies negative for malignancy monitor and f/up with oncology as needed Pleural effusion 0231564 8 J90 history of recurrent left pleural effusions/ pneumothor aces status to thoracente ses (reportedl y negative for malignancy ) and eventually pleurodesi sfollows with pulmshe will sched f/up apt when she is stronger Obstructiv e sleep apnea syndrome 17023977 G47.33 CPAP qhs Obesity 528283833 E66.9 monitor diet and weightsedu cation Mood disorder 35148873 F 39 see depression Asthma 188477067 J45.90 9 mild asthmarece ntly tx for exaccontin ue symbicort and trelegy dailynebz stopped yesterday prior to dcmonitor need to restart Acute resp iratory failure 77297566 J96.00 dt asthma exac and multifocal PNAnow on RAstill sob with exertion, could be dt deconditio ningmonito r resp status Pneumonia 512891124 J18. 9 multifocal PNAmonitor cbc on admit and weeklyrepe at CXR in 6 weeksconti nue augmentin bid (ends 03/16)make f/up with her pulm Liver func tion tests outside reference range 260042175 R94.5 monitor LFTscmp on admit and weekly [id number] Courtney Hilton MD [facility] [address] [place] [address] 03/17/2024 12:00:28 03/18/2024 11:46:19 Coronary arteriosclerosis 73204971 I25.10 Status post KAMRYN to the proximal RCA in 08/2022No recent sxs.Contin ue ASA 81 mg qd and atorvastat in 40 mg qd.Monitor for sxs.F/U with cardio as planned Hypothyroidism 14803358 E03.8 Last TSH 0.48 in 02/2024.In 09/2023 TSH had been low and levothyrox ine changed to 6d/wk, unclear when it got increased again, may have been inpt error.Cont inue levothyrox ine 125 mcg qdWill recheck TSH and FT4 with next labs Gastroesop hageal reflux disease 337207950 K21.9 No current sxs.Contin ue pantoprazo le 40 mg qd.Monitor GI sxs. Migraine 30133807 G43.80 9 Relatively frequent in hx.Follows with neuro.Cont inue Emgality 120 mg monthly and nortriptyl ine 10 mg qhs.Monito r sxs.F/U as planned. Anxiety 69354741 F41.1 Mood good today.Cont inue sertraline 125 mg qd and lorazepam 0.5 mg BID prn.Monito r mood.Consu lt psych prn History of Hodgkin lymphoma 830935739 Z85.71 S/P mantle field radiation back in 1992 in remission for many yearsF/U with oncology prn Pleural effusion 0184632 8 J90 In hx, only minor on this admission. Monitor Obstructiv e sleep apnea syndrome 38049572 G47.33 Improved after gastric bypass surgery, but back on CPAP now.Contin ue CPAP with sleep.F/U with pulmonary. Obesity 925567311 E66.01 Z68.41 As above. Asthma 473245639 J45.40 Almost back to baseline.D /C med list had symbicort and trelegy listed.Pt says symbicort doesn't work, she is on trelegy at home. Actually has a brand new one in her nightstand here.Resta rt trelegy 100/62.5/2 5 mcg qdContinue albuterol q 6 hrs prn.Monito r resp status. Acute resp iratory failure 66834004 J96.01 Due to PNA causing asthma exacerbati on.Now resolved and weaned back to RA.Continu e asthma meds as below.Nadia tor resp status. Pneumonia 005121779 J15. 8 S/P multifocal PNAComplet ed course of abxs with Augmentin 875 mg BID on 03/16.Contin ue asthma meds as below.Very deconditio roberto.Needs PT/OT for strengthen ing, balance, gait training, safety and function.C ontinue fall precaution s.Monitor for safety.Mon itor resp status. Anterior c hest wall pain 287140478 R07.89 Chronic left chest wall pain after thoracotom y.Gets scheduled T6, T7, T8 nerve blocks with [facility] on regular schedule.C ontinue pregabalin 100 mg 5x/d, nortriptyl ine 10 mg qd,and lidocaine patch daily.Didn 't tolerate gabapentin .Monitor sxs and f/u as planned. History of bariatric surgical procedure 307160581 Z98.84 S/P gastric bypass in 2018.Nestor nue ursodiol 500 mg BID.Contin ue to encourage healthy eating and continued wt. loss. Ileitis 43891459 K52.9 Under good control on current regimen.Co ntinue mesalamine 1.5 mg qd.Monitor sxs.F/U with GI as planned. Insulin resistance 23664 5000 E88.810 Sugars mostly WNL inpt, but HgA1C 6.2Encoura ge healthy eating and continued wt. loss.Monit or as outpt. Vitamin D deficiency 347 04100 E56.8 Continue vitamin D 2000 IU qd.Monitor levels prn Anemia 158451104 D64.89 Iron low inpt with high ferritin (likely due to infection) .Will start iron gluconate 324 mg qd. with vitamin C 500 mg qd for absorption .Monitor labs [id number] NETO LIAO NP [facility] [address] [place] [address] 03/24/2024 12:46:00 03/25/2024 13:32:28 Pneumonia 873245521 J15.8 S/P multifocal PNAComplet ed course of abxs with Augmentin 875 mg BID on 03/16.Contin ue asthma meds as below.Very deconditio roberto.Needs PT/OT for strengthen ing, balance, gait training, safety and function.G oal is to return home.Nestor nue fall precaution s.Monitor for safety.Mon itor resp status. Acute resp iratory failure 68890670 J96.01 Due to PNA causing asthma exacerbati on.Now resolved and weaned back to RA.Continu e asthma meds as below.Nadia tor resp status. Pleural effusion 2308067 8 J90 In hx, only minor on this admission. Monitor Asthma 898508037 J45.40 Almost back to baseline.D /C med list had symbicort and trelegy listed.Pt says symbicort doesn't work, she is on trelegy at home. Actually has a brand new one in her nightstand here.Resta rt trelegy 100/62.5/2 5 mcg qdContinue albuterol q 6 hrs prn.Monito r resp status. Anterior c hest wall pain 260377237 R07.89 Chronic left chest wall pain after thoracotom y.Gets scheduled T6, T7, T8 nerve blocks with [facility] on regular schedule.C ontinue pregabalin 100 mg 5x/d, nortriptyl ine 10 mg qd,and lidocaine patch daily.Didn 't tolerate gabapentin .Monitor sxs and f/u as planned. Coronary arteriosclerosis 56718483 I25.10 Status post KAMRYN to the proximal RCA in 08/2022No recent sxs.Contin ue ASA 81 mg qd and atorvastat in 40 mg qd.Monitor for sxs.F/U with cardio as planned Hypothyroidism 13562962 E03.8 Last TSH 0.48 in 02/2024.In 09/2023 TSH had been low and levothyrox ine changed to 6d/wk, unclear when it got increased again, may have been inpt error.Cont inue levothyrox ine 125 mcg qdWill recheck TSH and FT4 with next labs Gastroesop hageal reflux disease 368818890 K21.9 No current sxs.Contin ue pantoprazo le 40 mg qd.Monitor GI sxs. Insulin resistance 91938 5000 E88.810 Sugars mostly WNL inpt, but HgA1C 6.2Encoura ge healthy eating and continued wt. loss.Monit or as outpt. Anemia 648223860 D64.89 Iron low inpt with high ferritin (likely due to infection) .Will start iron gluconate 324 mg qd. with vitamin C 500 mg qd for absorption .Monitor labs Migraine 32292841 G43.80 9 Relatively frequent in hx.Follows with neuro.Cont inue Emgality 120 mg monthly and nortriptyl ine 10 mg qhs.Monito r sxs.F/U as planned. Anxiety 98343301 F41.1 Mood good today.Cont inue sertraline 125 mg qd and lorazepam 0.5 mg BID prn x 14 days, re-eval 03/28Monito r mood.Consu lt psych prn Ileitis 77108395 K52.9 Under good control on current regimen.Co ntinue mesalamine 1.5 mg qd.Monitor sxs.F/U with GI as planned. History of Hodgkin lymphoma 024954285 Z85.71 S/P mantle field radiation back in 1992 in remission for many yearsF/U with oncology prn Obstructiv e sleep apnea syndrome 55413541 G47.33 Improved after gastric bypass surgery, but back on CPAP now.Contin ue CPAP with sleep.F/U with pulmonary. History of bariatric surgical procedure 723740747 Z98.84 S/P gastric bypass in 2018.Nestor nue ursodiol 500 mg BID.Contin ue to encourage healthy eating and continued wt. loss. Obesity 173499930 E66.01 Z68.41 As above. Vitamin D deficiency 347 65175 E56.8 Continue vitamin D 2000 IU qd.Monitor levels prn Dizziness 754993719 R42 When OOB, usually goes away.Somet imes she feels her HR go up, which then makes her feel more SOB.Labs goodVSSChe ck orthostati c VS x 3Monitor [id number] SHARMILA KING, [place] [address] 03/25/2024 10:15:48 03/28/2024 15:28:10 Streptococcal sore throat 11869988 J02.0 highly suspicious exam for strep throatstar t amoxicilli n 500 mg q12h x 10 daystyleno l for pain control and body achessuppo rtive care with rest and fluidscepa col throat lozenge po q2h prnthroat swab [id number] [place] [address] 03/29/2024 14:07:44 03/30/2024 15:57:47 Asthenia 44506561 R53.1 lingering weakness secondary to pneumonia and recent presumed strep throatcont inue PT/OT for strengthen ing and conditioni ngdiscusse d with patient to increase fluids to minimize risk for dehydratio n that can contribute to weakness and fatigue, patient verbalizes understand ing. Asthma 634854003 J45.40 breathing is improvingc ont on trelegyCon tinue albuterol q 6 hrs prn. [id number] JAZMIN MOLINA [facility] [address] [place] [address] 03/30/2024 09:46:22 03/31/2024 15:25:42 Asthenia 98212978 R53.1 lingering weakness secondary to pneumonia and recent presumed strep throatreco mmend continuing PT/OT for strengthen ing and conditioni ngdiscusse d with patient to increase fluids to minimize risk for dehydratio n that can contribute to weakness and fatigue, patient verbalizes understand ing. Asthma 664558594 J45.40 breathing is improvingc ont on trelegyCon tinue albuterol q 6 hrs prn. Anemia 155093219 D64.89 iron gluconate 324 mg qd. with vitamin C 500 mg qd for absorption . Anterior c hest wall pain 393888403 R07.89 Chronic left chest wall pain after thoracotom y.[facility] as plannedCon tinue pregabalin 100 mg 5x/d, nortriptyl ine 10 mg qd,and lidocaine patch daily. Anxiety 94177220 F41.1 Continue sertraline 125 mg qd Coronary arteriosclerosis 67597180 I25.10 Continue ASA 81 mg qd and atorvastat in 40 mg qd.Monitor for sxs. Enteritis of intestine 4878437054 K52.9 Continue mesalamine and ursodiol Gastroesop hageal reflux disease 500998595 K21.9 Continue pantoprazo le 40 mg qd. Hypothyroidism 30176544 E03.8 Continue levothyrox ine 125 mcg qd Ileitis 20081377 K52.9 Continue mesalamine 1.5 mg qd.F/U with GI as planned. Obstructiv e sleep apnea syndrome 87423662 G47.33 Continue CPAP with sleep.F/U with pulmonary. Health Concerns Section Related Observation LastModified by Organization Rodrigo manley LastModified Time None Recorded Concern Status LastModified by Organization Details LastModified Time None Recorded Advance Directives Directive Y: Payers Encounter Date Sequence Insurance Name Policy Number Policy Chilel Covered Member ID Chilel Member ID Guarantor Name 03/17/2024 1 [facility] (MEDICARE REPLACEMENT HMO) [id number] Rose Marie Ross [id number] Rose Marie Ross 03/24/2024 1 [place]) [id number] Rose Marie Ross [id number] Rose Marie Ross 03/25/2024 1 [place] HMO) [id number] Rose Marie Ross [id number] Rose Marie Escobedoo 03/29/2024 1 [place] HMO) [id number] Rose Marie Ross [id number] Rose Marie Escobedoo 03/30/2024 1 [place] HMO) [id number] Rose Marie Ross [id number] Rose Marie Ross Notes Date Note Type Note Provider Name and Address Organization Details Recorded Time 5 text/html This is a 58 yo woman who [...] the right groin lymph node on 03/12/23 ([facility] - all biopsies negative for malignancy). A complication of that procedure was left chest wall pain syndrome requiring T6-8 nerve blocks every month via [facility].She was in her normal state of [facility] however her found her on the couch with decreased responsiveness, vomitingand therefore she was fought to [facility] where she was admitted for 5 days and treated for right middle lobe pneumonia, aspiration pneumonia and acute hypoxic respiratory failure. Sputum cultures showed safia and she was discharged on Bactria, fluconazole and 4 LPM of O2 (not previously on O2 at home).She was discharged at that time. She wasdischarged to [address] [place] [address]{03/07} around 7pm.After her admission therepacheco developed severe SOB after a coughing fit and was transferred to [facility] on 03/09/24. In the ED a [...] subsequently resolved without need for a Mcknight catheter Transferred here on 03/15/23.Since admission she has been working with rehab and getting stronger slowly.She has been weaned back to RA.She tells me today was a good day, she walked with rehab, but is still a little shaky. Was wiped out after rehab and had to take a nap. Worries about going home too soon, as she has 2 dogs >100# who could easily knock her over by accident.Pain is much better now that pregabalin was delivered by pharmacy (didn't have it for 2 days). Her PMH includes CAD, asthma, hypothyroidism, moderate aortic and mitral valve stenosis, Hodgkin's lymphoma status post mantle radiation, left thoracentesis and pleurodesis complicated by recurrent pleural effusions s/p left mini-thoracotomy with wedge resection of left upper lobe and excision of right groin lymph node on 03/12/2023, GERD, insulin resistance, and chronic chest wall pain since thoracotomy. Courtney Hilton MD [address] [place] [address], [address], [place], [address], [facility] 03/17/2024 21:11:11 5 text/html Rose Marie is seen today [...] the right groin lymph node on 03/12/23 ([facility] - all biopsies negative for malignancy). A complication of that procedure was left chest wall pain syndrome requiring T6-8 nerve blocks every month via [facility].She was in her normal state of [facility] however her found her on the couch with decreased responsiveness, vomitingand therefore she was brought to [facility] where she was admitted for 5 days and treated for right middle lobe pneumonia, aspiration pneumonia and acute hypoxic respiratory failure. Sputum cultures showed safia and she was discharged on Bactrim, fluconazole and 4 LPM of O2 (not previously on O2 at home).She was discharged at that time. She wasdischarged to [address] [place] [address]{03/07} around 7pm.After her admission rain developed severe SOB after a coughing fit and was transferred to [facility] on 03/09/24. In the ED a [...] pain since thoracotomy. NETO LIAO NP [address] [facility], [address], [place], [address], [employer] 03/24/2024 14:27:36 5 text/html Pt is a 58 yo woman being seen today for acute rounding. She [...] and chronic chest wall pain since thoracotomy. NAV WEBER [address] [facility], [address], [place], [address], [employer] 03/25/2024 10:23:45 5 text/html Patient is a 58 yr old female seen for acute rounding visit. She is seen sitting upright in wheelchair in her room in [facility], she reports breathing has greatly improved, continues to feel tired at times but otherwise she is doing well and is looking forward to going home. Her appetite has improved she is eating and drinking ok, denies any new discomfort, no concerns with elimination. JAZMIN MOLINA [address] [facility], [address], [place], [address], [employer] 03/29/2024 21:29:50 5 text/html Discharge summary This is a 58 yo woman who is was admitted for rehab after several recent hospitalizations, most recently for a multifocal PNA with pleural effusion and asthma exacerbation with hypoxia. Pt was admitted for 5 days at [facility] and treated for right middle lobe pneumonia, aspiration pneumonia and acute hypoxic respiratory failure. Hours after her dc to rehab she was brought to [facility] for acute hypoxic resp failure and required [...] therapy and nursing services. JAZMIN MOLINA [address] [facility], [address], [place], [address], [facility] [employer] 03/30/2024 10:18:52 OBGyn Episode No OBEpisode recorded.
== END ==
LOC: HO.CARD 10:45
PROVIDERS: PCP Internal Medicine; Visit Provider Nurse Practitioner Family
DX: I35.0 Nonrheumatic aortic (valve) stenosis (principal); I34.2 Nonrheumatic mitral (valve) stenosis
CPT/HCPCS: 93306

== ENCOUNTER → 2024-04-22 10:48 | Outpatient (BNV) | payer BC, SELFPAY ==
[2023-07-28 10:56] VITALS: BP 100/50; BP 114/58; BP 156/54; BMI 40.1
== END ==
PROVIDERS: PCP Internal Medicine; Visit Provider Internal Medicine Cardiovascular Disease
DX: I35.0 Nonrheumatic aortic (valve) stenosis (principal); I34.2 Nonrheumatic mitral (valve) stenosis; I35.8 Other nonrheumatic aortic valve disorders; I34.81 Nonrheumatic mitral (valve) annulus calcification
CPT/HCPCS: 93306

== ENCOUNTER 2024-04-28 09:47 | Outpatient (AMB) | payer BC, SELFPAY ==
[2023-07-28 10:56] VITALS: BP 100/50; BP 114/58; BP 156/54; BMI 40.1
[2024-04-28 10:00] VITALS: BP 120/62; PULSE 87; BMI 42.1
--- NOTE | 2024-04-28 10:00 | MHC.OFFVIS ---
Vital Signs 04/28/24 10:00 Height 5 ft 2 in Weight 230 lb 2.601 oz BMI 42.1 BP 120/62 Blood Pressure Location Lt brachial Position Sitting Pulse 87 Pulse Source Monitor Intake Visit Reasons: f/up echo Mechanic Insulator Required: No Allergies oxycodone [From PERCOCET] Allergy (Intermediate, Verified 04/28/24 10:04) HIVES Sulfa (Sulfonamide Antibiotics) [SULFA (SULFONAMIDE ANTIBIOTICS)] Allergy (Intermediate, Verified 04/28/24 10:04) HIVES diatrizoate meglumine [Gastrografin] Allergy (Unknown, Verified 04/28/24 10:04) red rash Medication List - Last Reconciled 04/28/24 by NAV Romero albuterol sulfate 90 mcg/actuation 2 puffs inhalation DAILY PRN aspirin (Ecotrin Low Strength) 81 mg PO DAILY atorvastatin 40 mg PO DAILY 90 days cane As directed cholecalciferol (vitamin D3) 50 mcg PO DAILY yzdvopticfm-miyzbowdu-cgdpvdtf 100-62.5-25 mcg (Trelegy Ellipta) 1 inh inhalation DAILY 90 days ipratropium-albuterol 0.5 mg-3 mg(2.5 mg base)/3 mL 3 mL inhalation Q6-8H PRN levothyroxine (Levoxyl) 125 mcg PO DAILY lidocaine 5% 1 patch topical DAILY lorazepam 0.5 mg PO BID PRN meclizine 12.5 mg PO DAILY PRN mesalamine ER 1.5 grams (4 x 0.375 gram) PO DAILY morphine 15 mg PO BID PRN nortriptyline 10 mg PO BEDTIME pantoprazole 40 mg PO DAILY pregabalin 100 mg PO QID sertraline 125 mg PO DAILY sertraline 25 mg PO DAILY ubrogepant (Ubrelvy) 50 mg PO DAILY PRN ursodiol 500 mg PO BID walker (Ultra-Light Rollator misc) As directed HPI HPI f/up echo: Details: Rose Marie is a 58-year-old female with past medical history of Hodgkin's lymphoma and mantle radiation, mild to moderate aortic stenosis, moderate mitral valve stenosis. On 08/21/2022 underwent cardiac catheterization showing significant proximal RCA stenosis and a KAMRYN was placed. In 11/2022 she developed chest discomfort and was treated for pericarditis which was treated with colchicine and then prednisone. She then had abnormal findings on a chest x-ray leading to eventual lung biopsy. She underwent thoracotomy with wedge resection, biopsy on 03/12/2023. She did have issues with anemia during that admission requiring 2 units of packed cells. She was [facility] with a multifocal pneumonia and hypoxic respiratory failure with gradual improvement in her condition with the appropriate management. Today she reports that she is is now feeling like she is fully recovered from her acute pneumonia episode. She has some minor weakness and ambulates with a cane for balance. She has issues with chronic pain along her left scapula and left side from her wedge resection surgery. She is hoping to have a spinal stimulator placed in the near future. She has some minor discomfort in the left upper chest region which is random, nonexertional. She has mild shortness of breath at times with exertion. She denies sob at rest, PND, orthopnea or edema. No presyncope, syncope, falls. She has been doing only light physical activities. Taking all meds as directed. [facility] Medical History History of mantle field radiation therapy (~1992) Environmental allergies History of shingles CAD (coronary artery disease) Stented coronary artery (~2022) Hyperlipidemia Obesity Mitral stenosis Anxiety and depression Tubular adenoma of colon History of Hodgkin's lymphoma (~1992) Radiation-induced heart disease Aortic stenosis Asthma Hypothyroid Hepatic steatosis GERD (gastroesophageal reflux disease) Herpes Surgical History History of lung surgery History of lymph node excision (03/12/23) History of lung biopsy (02/11/23) History of repair of hiatal hernia (~2017) History of thoracentesis (~2018) History of ankle surgery History of section History of colonoscopy History of heart artery stent (~2022) History of arthroscopy of right shoulder History of sleeve gastrectomy (~2017) History of esophagogastroduodenoscopy (EGD) History of cholecystectomy Family History Mother Colon cancer Father Hypertension Prostate cancer Son Diabetes Daughter Autism Social History Household Members: Spouse and Family Housing: House Are you a primary palliative care physician to a significant other at home: No Do you presently have visiting nurse or other home services: No Alcohol intake: current Alcohol intake frequency: holidays/special occasions only Patient Tobacco Use Status: Never used Tobacco e-Cigarette/Vaping Use: Never Used Substance Use Type: Marijuana service: No 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: employed 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 Review of Systems Const All systems reviewed & are unremarkable except as noted in HPI and below ENT Denies dizziness Card Reports chest pain (mild random discomfort left upper chest region at times.), Denies chest pain at rest, Denies chest pain with activity, Denies rapid heart rate, Denies pedal edema, Denies edema, Denies leg edema, Denies lightheadedness, Denies palpitations, Denies dyspnea, Reports dyspnea on exertion and Denies orthopnea Resp Denies cough, Denies dyspnea and Reports dyspnea on exertion GI Denies hematochezia and Denies change in stool character Musc Details: Pain from scapula that radiates around left side to left breast region. Ambulates with a can for balance Denies abnormal gait, Denies limited range of motion, Denies muscle cramps, Denies muscle weakness, Denies numbness, Denies radiating pain into limb, Denies stiffness and Denies tingling Neuro Denies abnormal gait, Denies dizziness, Denies numbness and Denies tingling Endo Denies palpitations Physical Exam Vital Signs: BMI result Body Mass Index 42.1 Const General: cooperative, healthy appearing, comfortable and no acute distress Orientation/consciousness: patient oriented x3 Neck Neck: Yes normal visual inspection and Yes no JVD Resp Effort & Inspection: normal respiratory effort Auscultation: clear to auscultation bilaterally, no rales, no rhonchi and no wheezes Cardio Rate: regular rate Rhythm: regular rhythm Heart sounds: S2 normal heart sound present, Murmur heart sound present (systolic 3/6 left sternal border and 2/6 left apical region) and no rubs Neuro General: patient oriented x3 Extrem General: Yes normal to inspection, No no pedal edema and No calf tenderness Psych Appearance: grossly normal Mental Status: mental status grossly normal Speech and movement: Normal speech and movement present Office Procedures EKG Details: Today, read by me, Normal sinus rhythm left axis, nonspecific ST abn, voltage criteria for LVH, rate 87, QTc 438ms [id number], Complete Assessment & Plan Assessment & Plan (1) CAD (coronary artery disease): Comment: (radiation induced heart disease - s/p stent to RCA 08/15/22) Code(s): I25.10 - Atherosclerotic heart disease of [place] coronary artery without angina pectoris Category: Medical Qualifiers: Associated angina: with unspecified form of angina Coronary Disease-Associated Artery/Lesion type: [place] artery [place] vs. transplanted heart: [place] heart Qualified Code(s): I25.119 - Atherosclerotic heart disease of [place] coronary artery with unspecified angina pectoris Plan: Prior reports of chest discomfort, leading to Cardiac catheterization done on 08/21/2022 showing proximal RCA 80% stenosis. Angioplasty and KAMRYN placed. PA pressure is normal. She was placed on aspirin indefinitely, Brilinta 90 mg b.i.d. uninterrupted for at least 1 year. Atorvastatin 40 mg daily. She attended cardiac rehab. She did have pericarditis months later that was managed medically and eventually resolved. Today she reports chronic pain in her left scapula, left side and left breast region. She also has intermittent aching in the left upper chest which is not new. She has no chest discomfort that is brought on by physical activities. EKG done today showing normal sinus rhythm, no acute ST or T-wave abnormalities, rate 87. Signs and symptoms of angina reviewed with her. Will have her continue aspirin, atorvastatin. Cardiology follow-up 6 months, sooner if needed. (2) S/P cardiac catheterization: Onset Date: ~2022 Comment: 08/21/2022. Left main 20% stenosis, proximal RCA 80% stenosis angioplasty and KAMRYN placed, no significant gradient on pullback across aortic valve, wedge 10, PA 27/9, no obvious mitral stenosis Code(s): Z98.890 - Other specified postprocedural states Category: Surgical (3) History of heart artery stent: Onset Date: ~2022 Comment: (Stent to RCA [80% occluded] - Dr. Mclaughlin, [facility] [place]15[place]) Code(s): Z95.5 - Presence of coronary angioplasty implant and graft Category: Surgical Plan: As above (4) Aortic stenosis: Comment: (05/19/22 Echo = nmkb-kw-brtipgle aortic & mitral valve stenosis) Code(s): I35.0 - Nonrheumatic aortic (valve) stenosis Category: Medical Qualifiers: Cardiac valve disease etiology: nonrheumatic Qualified Code(s): I35.0 - Nonrheumatic aortic (valve) stenosis Plan: She has a known history of aortic stenosis. Echocardiogram done 05/12/2023 showed moderate with mean gradient 19 mmHg, aortic valve area 1.18 centimeter sq. Echocardiogram done 04/22/2024 shows moderate to severe aortic stenosis with mean gradient 20 mmHg, aortic valve area 1.09 centimeter sq. Heart murmur noted on examination. Cardinal signs of severe reviewed with her. She is aware that she will eventually need valve replacement. Will plan for repeat echo in 6 months. (5) Mitral stenosis: Comment: (05/19/22 Echo = rkdp-rt-wofxbwbe mitral valve stenosis, calcific mitral annular changes -non rheumatic) Code(s): I05.0 - Rheumatic mitral stenosis Category: Medical Qualifiers: Cardiac valve disease etiology: nonrheumatic Qualified Code(s): I34.2 - Nonrheumatic mitral (valve) stenosis Plan: Echocardiogram 05/19/2022 showing mild to moderate mitral valve stenosis. Cardiac catheterization performed showing no obvious mitral stenosis. Echocardiogram 05/12/23 showed Moderate mitral stenosis. Most recent echo 04/22/2024 shows moderate calcification of the mitral valve. Plan for repeat echo prior to next visit (6) Radiation-induced heart disease: Comment: (s/p chest radiation for Hodgkins in 1992; s/p stent to RCA - 08/15/22) Code(s): I51.9 - Heart disease, unspecified Category: Medical Plan: History of chest radiation 1992 for Hodgkin's lymphoma (7) Pericarditis: Code(s): I31.9 - Disease of pericardium, unspecified Category: Medical Plan: Fall 2022 she was treated for pericarditis which was initially treated with colchicine. An echocardiogram was done on 12/03/2022 showing EF 60-65%, no regional wall motion abnormalities, normal RV and no gross pericardial effusion. Her symptoms persistent even with cholchicin use. Ibuprofen was avoided per the recommendation of her GI provider due to risk of exacerbating her ileitis. She did require use of prednisone which required slow gradual wean. Her symptom took many weeks to resolve. At this point she no longer has symptoms of pericarditis. A recent echo shows no evidence of pericardial effusion. (8) Hyperlipidemia: Code(s): E78.5 - Hyperlipidemia, unspecified Category: Medical Qualifiers: Hyperlipidemia type: unspecified Qualified Code(s): E78.5 - Hyperlipidemia, unspecified Plan: [place] LDL goal less than 70 in patient with CAD. Recently started on atorvastatin 40 mg daily. Labs done on 10/17/2022 showed LDL 69. Will try to get most recent lipid profile from her PCP. (9) Abnormal TSH: Code(s): R79.89 - Other specified abnormal findings of blood chemistry Category: Medical Plan: Runs low TSH, not new for her. TSH on 02/23/2023 was 0.06. She has no reports of heart palpitations. Labs done 12/29/2023 showed TSH 0.35. (10) S/P thoracotomy: Comment: 03/12/2023 Code(s): Z98.890 - Other specified postprocedural states Category: Surgical Plan: Now with residual Chronic pain left scapula, lateral and anterior chest. Follows with pain Clinic (11) Preop cardiovascular exam: Code(s): Z01.810 - Encounter for preprocedural cardiovascular examination Category: Medical Plan: Preop for spinal stimulator placement. Reviewed with Dr. Ordonez. She may proceed with intermediate cardiac risk. Aspirin can be held as needed for the procedure and plan to restart as soon as cleared by surgeon to do so. Call/consult Cardiology if needed. Plan Time spent on chart review, documentation, interview and assessment Orders: Orders CA echo transthoracic complete 10/10/24 I34.2 - Nonrheumatic mitral (valve) stenosis, I35.0 - Nonrheumatic aortic (valve) stenosis, Z95.5 - Presence of coronary angioplasty implant and graft Coding Level of Care Code Est Pt Level 4 (72532) Complex EM visit Add On G2211 Diagnoses Coronary artery disease involving [place] coronary artery of [place] heart with angina pectoris I25.119 Associated angina: with unspecified form of angina Coronary Disease-Associated Artery/Lesion type: [place] artery [place] vs. transplanted heart: [place] heart S/P cardiac catheterization Z98.890 History of heart artery stent Z95.5 Nonrheumatic aortic valve stenosis I35.0 Cardiac valve disease etiology: nonrheumatic Nonrheumatic mitral valve stenosis I34.2 Cardiac valve disease etiology: nonrheumatic Radiation-induced heart disease I51.9 Pericarditis I31.9 Hyperlipidemia, unspecified hyperlipidemia type E78.5 Hyperlipidemia type: unspecified Abnormal TSH R79.89 S/P thoracotomy Z98.890 Preop cardiovascular exam Z01.810 CPT Codes EKG - CPT: 33088-[id number], Complete ([id number]) Time Spent (min) 36
--- OUTSIDE RECORDS SUMMARY | 2024-04-28 10:35 | XMS_ITS ---
Author Organization [facility] [employer] [facility] Address [address] [address] Care Team Providers Care Drop Worker Name Role Phone ADRIAN CORDERO Primary Care Provider Tessa Lemus [phone] Medications Medication SIG (Take, Route, Frequency, Duration) Notes Start Date End Date Status Cipro 500 MG 1 tablet Orally Twice a day for 7 days 06/12/2023 Active Encounters Encounter Location Date Provider Diagnosis [facility] [employer] [address] [address] 06/12/2023 Tessa Dawson Plan Of Treatment Medication Medication Name Sig Start Date Stop Date Notes Cipro 500 MG 1 tablet Orally Twice a day for 7 days 2023 Next Appt Details Provider Name:Tessa moise, 02/27/2025 01:00:00 PM, [address] [place] [address], [address], [place], [address], Progress Notes * ASHLEY H[birth year]OB:[birth year] (57 yo F)Acc No.[id number]:06/12/2023 Patient:?PILO HAYDEN :1965???Age:57 Y???Sex:Female Address:[address] [place] [address], [address] * Refills? Start Cipro Tablet, 500 MG, Orally, 14 Tablet, 1 tablet, Twice a day, 7 days, Refills=0 * true * Date:? Generated for Printi lisa/Fachristineg/eTransmitting on:?04/28/2024 10:35 AM EST
--- OUTSIDE RECORDS SUMMARY | 2024-04-28 10:35 | XMS_ITS | Encounter Summary ---
Author Organization [facility] Address [address] [place] [address] Care Team Providers Care Forklift Driver Name Role Phone Huong Johnson MD Primary Care Provider [phone] Encounter Details Date Type Department Care Team (Late st Contact Info) Description 04/05/2024 Lab Requisition [facility] - Main Lab [address] [facility] [place] [address] Darien Smith MD [address] [place] [address] [address] [place], [address] Anemia, unspecified Social History Tobacco Use [...] for your loved ones. For example, children's minister or elderly care for an older adult? [...] unspecified documented in this encounter Care Teams Forklift Driver Relationship Specialty Start Date End Date Huong Johnson MD [address] [place] [address] PCP - General Internal Medicine 03/03/24 documented as of this encounter
--- OUTSIDE RECORDS SUMMARY | 2024-04-28 10:35 | XMS_ITS | Encounter Summary ---
Author Organization [facility] Address [address] [place] [address] Care Team Providers Care Yard Laborer Name Role Phone Huong Johnson MD Primary Care Provider [phone] Encounter Details Date Type Department Care Team (Late st Contact Info) Description 03/22/2024 Lab Requisition [facility] - Main Lab [address] [facility] [place] [address] Darien Smith MD [address] [place] [address] [address] [place], [address] Anemia, unspecified Social History Tobacco Use [...] for your loved ones. For example, child development specialist or elderly care for an older adult? [...] mmol/L LAB CHEMISTRY METHOD 03/23/2024 10:11 AM [facility] Potassium 4.7 3.5 - 5.5 mmol/L LAB CHEMISTRY METHOD 03/23/2024 10:11 AM [facility] Chloride 109 96 - 110 mmol/L LAB CHEMISTRY METHOD 03/23/2024 10:11 AM [facility] CO2 28 21 - 32 mmol/L LAB CHEMISTRY METHOD 03/23/2024 10:11 AM [facility] Anion Gap 4 3 - 11 LAB CHEMISTRY METHOD 03/23/2024 10:11 AM [facility] Glucose 86 70 - 100 mg/dL LAB CHEMISTRY METHOD 03/23/2024 10:11 AM [facility] BUN 6 5 - 25 mg/dL LAB CHEMISTRY METHOD 03/23/2024 10:11 AM [facility] Creatinine 0.66 0.50 - 1.10 mg/dL LAB CHEMISTRY METHOD 03/23/2024 10:11 AM [facility] eGFR 103 >=60 mL/min/1. 73m2 LAB CHEMISTRY METHOD 03/23/2024 10:11 AM [facility] Comment:Calculation based on the??Chronic Kidney Disease Epidemiology Collaboration (CKD-EPI) equation refit??without adjustment for race. BUN/Creatinine Ratio 9.1 LAB CHEMISTRY METHOD 03/23/2024 10:11 AM [facility] Calcium 8.7 8.5 - 10.5 mg/dL LAB CHEMISTRY METHOD 03/23/2024 10:11 AM [facility] Blood Venous blood specimen / Unknown Venipuncture / Unknown 03/23/2024 4:56 AM EST 03/23/2024 8:44 AM EST us Darien Smith MD LAB BLOOD ORDERABLES Final Resul t [facility] [address] [place] [address], * (ABNORMAL) Complete blood count (03/23/2024 4:56 AM EST) [facility] WBC 8.2 4.8 - 10.8 K/mcL LAB HEMETOLOGY METHOD 03/23/2024 9:56 AM [facility] RBC 3.50(L) 3.80 - 4.80 M/mcL LAB HEMETOLOGY METHOD 03/23/2024 9:56 AM [facility] Hemoglobin 10.0(L) 11.5 - 16.0 g/dL LAB HEMETOLOGY METHOD 03/23/2024 9:56 AM [facility] Hematocrit 32.2(L) 35.0 - 47.0 % LAB HEMETOLOGY METHOD 03/23/2024 9:56 AM [facility] MCV 91.0 79.0 - 98.0 FL LAB HEMETOLOGY METHOD 03/23/2024 9:56 AM [facility] MCH 28.2 27.0 - 32.0 pcg LAB HEMETOLOGY METHOD 03/23/2024 9:56 AM [facility] MCHC 31.1(L) 32.0 - 37.0 g/dL LAB HEMETOLOGY METHOD 03/23/2024 9:56 AM [facility] RDW 15.5(H) 11.0 - 15.0 % LAB HEMETOLOGY METHOD 03/23/2024 9:56 AM [facility] Platelets 480(H) 130 - 400 K/mcL LAB HEMETOLOGY METHOD 03/23/2024 9:56 AM [facility] MPV 11.4(H) 7.0 - 11.0 FL LAB HEMETOLOGY METHOD 03/23/2024 9:56 AM [facility] NRBC 0.0 <1.0 % LAB HEMETOLOGY METHOD 03/23/2024 9:56 AM EST [facility] NRBC Absolute 0.00 <0.10 K/mcL LAB HEMETOLOGY METHOD 03/23/2024 9:56 AM EST [facility] Blood Venous blood specimen / Unknown Venipuncture / Unknown 03/23/2024 4:56 AM EST 03/23/2024 8:44 AM EST us Darien Smith MD LAB BLOOD ORDERABLES Final Resul t [facility] [address] [place] [address], documented in this encounter Visit Diagnoses Diagnosis Anemia, unspecified documented in this encounter Care Teams Yard Laborer Relationship Specialty Start Date End Date Huong Johnson MD [address] [place] [address] PCP - General Internal Medicine 03/03/24 documented as of this encounter
--- OUTSIDE RECORDS SUMMARY | 2024-04-28 10:35 | XMS_ITS | Encounter Summary ---
Author Organization [facility] Address [address] [place] [address] Care Team Providers Care Food Service Technician Name Role Phone Huong Johnson MD Primary Care Provider [phone] Encounter Details Date Type Department Care Team (Late st Contact Info) Description 03/29/2024 Lab Requisition [facility] - Main Lab [address] [facility] [place] [address] Darien Smith MD [address] [place] [address] [address] [place], [address] Anemia, unspecified Social History Tobacco Use [...] for your loved ones. For example, child nutrition manager or elderly care for an older adult? [...] mmol/L LAB CHEMISTRY METHOD 03/30/2024 11:55 AM [facility] Potassium 4.7 3.5 - 5.5 mmol/L LAB CHEMISTRY METHOD 03/30/2024 11:55 AM [facility] Comment:Hemolysis present Chloride 112(H) 96 - 110 mmol/L LAB CHEMISTRY METHOD 03/30/2024 11:55 AM [facility] CO2 26 21 - 32 mmol/L LAB CHEMISTRY METHOD 03/30/2024 11:55 AM [facility] Anion Gap 5 3 - 11 LAB CHEMISTRY METHOD 03/30/2024 11:55 AM [facility] Glucose 70 70 - 100 mg/dL LAB CHEMISTRY METHOD 03/30/2024 11:55 AM [facility] BUN 7 5 - 25 mg/dL LAB CHEMISTRY METHOD 03/30/2024 11:55 AM [facility] Creatinine 0.46(L) 0.50 - 1.10 mg/dL LAB CHEMISTRY METHOD 03/30/2024 11:55 AM [facility] eGFR 112 >=60 mL/min/1. 73m2 LAB CHEMISTRY METHOD 03/30/2024 11:55 AM [facility] Comment:Calculation based on the??Chronic Kidney Disease Epidemiology Collaboration (CKD-EPI) equation refit??without adjustment for race. BUN/Creatinine Ratio 15.2 LAB CHEMISTRY METHOD 03/30/2024 11:55 AM [facility] Calcium 8.7 8.5 - 10.5 mg/dL LAB CHEMISTRY METHOD 03/30/2024 11:55 AM [facility] Blood Venous blood specimen / Unknown Venipuncture / Unknown 03/30/2024 5:10 AM EST 03/30/2024 10:53 AM EST us Darien Smith MD LAB BLOOD ORDERABLES Final Resul t [facility] [address] [place] [address], * (ABNORMAL) Complete blood count (03/30/2024 5:10 AM EST) [facility] Signature WBC 6.8 4.8 - 10.8 K/mcL LAB HEMETOLOGY METHOD 03/30/2024 11:54 AM EST [facility] RBC 3.60(L) 3.80 - 4.80 M/mcL LAB HEMETOLOGY METHOD 03/30/2024 11:54 AM [facility] Hemoglobin 10.2(L) 11.5 - 16.0 g/dL LAB HEMETOLOGY METHOD 03/30/2024 11:54 AM [facility] Hematocrit 33.9(L) 35.0 - 47.0 % LAB HEMETOLOGY METHOD 03/30/2024 11:54 AM [facility] MCV 93.1 79.0 - 98.0 FL LAB HEMETOLOGY METHOD 03/30/2024 11:54 AM [facility] MCH 28.0 27.0 - 32.0 pcg LAB HEMETOLOGY METHOD 03/30/2024 11:54 AM [facility] MCHC 30.1(L) 32.0 - 37.0 g/dL LAB HEMETOLOGY METHOD 03/30/2024 11:54 AM [facility] RDW 15.9(H) 11.0 - 15.0 % LAB HEMETOLOGY METHOD 03/30/2024 11:54 AM [facility] Platelets 193 130 - 400 K/mcL LAB HEMETOLOGY METHOD 03/30/2024 11:54 AM [facility] MPV 12.1(H) 7.0 - 11.0 FL LAB HEMETOLOGY METHOD 03/30/2024 11:54 AM EST [facility] NRBC 0.0 <1.0 % LAB HEMETOLOGY METHOD 03/30/2024 11:54 AM EST [facility] NRBC Absolute 0.00 <0.10 K/mcL LAB HEMETOLOGY METHOD 03/30/2024 11:54 AM EST [facility] Blood Venous blood specimen / Unknown Venipuncture / Unknown 03/30/2024 5:10 AM EST 03/30/2024 10:53 AM EST us Darien Smith MD LAB BLOOD ORDERABLES Final Resul t [facility] [address] [place] [address], documented in this encounter Visit Diagnoses Diagnosis Anemia, unspecified documented in this encounter Care Teams Food Service Technician Relationship Specialty Start Date End Date Huong Johnson MD [address] [place] [address] PCP - General Internal Medicine 03/03/24 documented as of this encounter
--- OUTSIDE RECORDS SUMMARY | 2024-04-28 10:36 | XMS_ITS | Continuity of Care Document ---
Author Organization [facility] Address [address] [place] [address]- Care Team Providers Care Branch Controller Name Role Phone Huong Johnson MD Primary Care Physician En[place] [facility] Date(s): 03/25/24 - 04/24/24 [facility] [address] [place], [place] [address] Encounter Type: Triage Allergies, Adverse Reactions, Alerts Substance Criticality Severity Reaction Reaction Severity Status sulfonamides hives Active Gastrografin Active Vicodin itch Active Percocet 5/325 itching Activ e oxyCODONE Itchy Skin rash Active Immunizations Given and Recorded Vaccine Date [...] vaccine, inactivated 6 12/30/11 Gi dayana SARS-CoV-2(COVID-19)mRNA-LNP vac(srg209) 12/26/23 Recorded tetanus/diphtheria/pertussis, acel(Tdap) 7 02/16/23 Given tetanus/diphtheria/pertussis, acel(Tdap) 03/01/12 Given [id number]-BbP-2bGKD 12y+ bivalent booster vax 03/07/22 Recorded SARS-CoV-2 mRNA (lbrlnks-mwyt-vmhvk) vax 09/08/21 Recorded SARS-CoV-2 (COVID-19) mRNA BNT-162b2 [...] 11/03/16 Recorde d 1Result Comment: Done at [facility] 2Result Comment: [facility] [id number] 3Result Comment: [facility] [id number] 4Result Comment: [12/01/2016] [facility] 5Result Comment: [02/14/2013] [facility] 6Admin Note: work 7Result Comment: [id number] 8Result Comment: Covid 19 9Result Comment: Covid 19 10Result Comment: Done at [facility] 11Result Comment: [12/01/2016] [facility] Medications albuterol CFC free 90 mcg/inh inhalation aerosol 2, puffs, Inhalation, Every 6 hours, PRN, # 8.5 Gm, Refills 2, Tot. Refills 2, Maintenance, 05/17/2409:25:00 AM EDT, Inhaler, Route to Pharmacy Electronically, NCPDP_[id number], [facility] #[id number], 157.4, cm, 05/18/23 9:45:00 EDT, Height, 93.9, [...] 0 Refills, Soft Stop, 03/09/24 6:01:00AM EST, [facility] #[id number], Partial fill upon patient request if the [...] Refills, Soft Stop, 03/09/24 6:02:00 AM EST, [facility] #[id number], Partial fill upon patient request if the [...] Refills, Maintenance, 04/10/24 12:27:00 PM EST, Tablet, [facility] #[id number], dose reduced from 137 to 125 mcg, [...] Refills, Maintenance, 02/08/24 11:36:00 AM EST, Tablet, [facility] #[id number], Partial fill upon patient request if the [...] Replace Required Details, Route to Pharmacy Electronically, [facility] #[id number], 157.4, cm, 11/05/23 12:44:00 EDT, Height, 93.5, [...] 1 Refills, Maintenance, 04/10/24 12:26:00 PM EST, [facility] #[id number], pls dispense as 90 day supplies, 157.4, [...] 1 Refills, Maintenance, 04/10/24 12:26:00 PM EST, [facility] #[id number], pls dispense as 90 day supplies, 157.4, [...] Team Personnel Name: Huong Johnson MD Position: [facility] Physician - Primary Care Member Role: PCP Address: [address] [place] [address] Adult & Pediatric [place], [place] [address] Telecom: Name: Deann Sethi RN Position: S RN Member Role: Primary Care Nurse Name: Ernestine Norris RN Position: [facility] RN Member Role: Primary Care Nurse Name: Mariela Wild MD Position: [facility] Physician - Endocrinology Member Role: Lifetime Consulting Physician Name: Nahun Garcia RN Position: [facility] RN Member Role: Primary Care Nurse Care Team Related Persons Name: SIOMARA HAYDEN Insurance Providers Guarantor name: PILO HARRISEDO Health Plan Information #: 1 Payer: [employer] Member Number: NA Policy Number: NA Group Number: NA
--- OUTSIDE RECORDS SUMMARY | 2024-04-28 10:36 | XMS_ITS | Continuity of Care Document ---
Author Organization [facility] Address [address] [place] [address]- Care Team Providers Care Panel Installer Name Role Phone Huong Johnson MD Primary Care Physician [phone] Encounter [facility] Date(s): 03/24/24 - 04/23/24 [facility] [address] [place], [place] [address] Encounter Type: Triage Allergies, Adverse Reactions, Alerts Substance Criticality Severity Reaction Reaction Severity Status sulfonamides hives Active Gastrografin Active Vicodin itch Active Percocet 5/ itching Activ e oxyCODONE Itchy Skin rash [...] vaccine, inactivated 6 12/30/11 Gi dayana SARS-CoV-2(COVID-19)mRNA-LNP vac(nyv418) 12/26/23 Recorded tetanus/diphtheria/pertussis, acel(Tdap) 7 02/16/23 Given tetanus/diphtheria/pertussis, acel(Tdap) 03/01/12 Given KOOH-RnZ-0dOFG 12y+ bivalent booster vax 03/07/22 Recorded SARS-CoV-2 mRNA (ksgakml-vbxw-ldzrk) vax 09/08/21 Recorded SARS-CoV-2 (COVID-19) mRNA BNT-162b2 [...] 11/03/16 Recorde d 1Result Comment: Done at [facility] 2Result Comment: [facility] [phone] 3Result Comment: [facility] [phone] 4Result Comment: [12/01/2016] [facility] 5Result Comment: [02/14/2013] [facility] 6Admin Note: work 7Result Comment: [id number] 8Result Comment: Covid 19 9Result Comment: Covid 19 10Result Comment: Done at [facility] 11Result Comment: [12/01/2016] [facility] Medications albuterol CFC free 90 mcg/inh inhalation aerosol 2, puffs, Inhalation, Every 6 hours, PRN, # 8.5 Gm, Refills 2, Tot. Refills 2, Maintenance, 05/17/2409:25:00 AM EDT, Inhaler, Route to Pharmacy Electronically, NCPDP_[id number], [facility] #[id number], 157.4, cm, 05/18/23 9:45:00 EDT, Height, 93.9, [...] 0 Refills, Soft Stop, 03/09/24 6:01:00AM EST, [facility] #[id number], Partial fill upon patient request if the [...] Refills, Soft Stop, 03/09/24 6:02:00 AM EST, [facility] #[id number], Partial fill upon patient request if the [...] Refills, Maintenance, 04/10/24 12:27:00 PM EST, Tablet, [facility] #[id number], dose reduced from 137 to 125 mcg, [...] Refills, Maintenance, 02/08/24 11:36:00 AM EST, Tablet, [facility] #[id number], Partial fill upon patient request if the [...] Replace Required Details, Route to Pharmacy Electronically, [facility] #[id number], 157.4, cm, 11/05/23 12:44:00 EDT, Height, 93.5, [...] 1 Refills, Maintenance, 04/10/24 12:26:00 PM EST, [facility] #[id number], pls dispense as 90 day supplies, 157.4, [...] 1 Refills, Maintenance, 04/10/24 12:26:00 PM EST, [facility] #[id number], pls dispense as 90 day supplies, 157.4, [...] Team Personnel Name: Huong Johnson MD Position: [facility] Physician - Primary Care Member Role: PCP Address: [address] [place] [address] Adult & Pediatric [place], [place] [address] Telecom: Name: Deann Sethi RN Position: S RN Member Role: Primary Care Nurse Name: Ernestine Norris RN Position: [facility] RN Member Role: Primary Care Nurse Name: Mariela Wild MD Position: [facility] Physician - Endocrinology Member Role: Lifetime Consulting Physician Name: Nhaun Garcia RN Position: [facility] RN Member Role: Primary Care Nurse Care Team Related Persons Name: SIOMARA HAYDEN Insurance Providers Guarantor name: PILO HARRISEDO Health Plan Information #: 1 Payer: [employer] Member Number: NA Policy Number: NA Group Number: NA
--- OUTSIDE RECORDS SUMMARY | 2024-04-28 10:36 | XMS_ITS | Patient Health Record ---
Author Organization [facility] Address [address] [facility] [address] [place] [address] Care Team Providers Care Parking Station Attendant Name Role Phone ADRIAN CORDERO Primary Care Provider Tessa Lemus Unavailable [phone] Allergies Allergen (clinical drug ingredient) Drug/Non Drug [...] PROTEIN NEG GLUCOSE MOD BLOOD NEG Urinalysis, Complete-[id number] Reviewed date:06/12/2023 09:36:46 AM Interpretation: Performing Lab:[facility], [address] [place] [address], [place], Phone - [phone], Director - Ankur Notes/Report: Clinical Information:SRC:UR Clinical Information:SRC:UR Specific [place] 1.024 1.005-1.030 pH 6.5 5.0-7.5 Urine-Color Yellow [...] /lpf Bacteria Many None seen/Few Urine Culture, Routine-11916 7 Reviewed date:06/12/2023 09:55:33 AM Interpretation: Performing Lab:[facility], [address] [facility], Phone - [phone], Director - Ankur Notes/Report: Clinical Information:SRC:UR Clinical [...] Report Reviewed date:06/12/2023 08:47:40 AM Interpretation: Performing Lab:[facility], [address] [facility], [place], Phone - [phone], Director - Ankur Notes/Report: Clinical Information:SRC:UR Reason [...] W/U Status Risk Notes Problem Non-Hodgkin lymphoma (666507579) Non-Hodgkin lymphoma, unspecified, unspecified site (C85.90) Active confirmed Problem Morbid obesity (disorder) (138150352) Morbid (severe) obesity due to excess calories (E66.01) Active confirmed Problem Cardiomyopathy associated with another disorder (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) 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 Problem Disorder of breast (40175658) Disorder of breast, unspecified (N64.9) Active confirmed Problem Unspecified menopausal and perimenopausal disorder (N95.9) Active confirmed Problem Mammography (54042843) Inconclusive mammogram (R92.2) Active confirmed Problem Replacement of contraceptive intrauterine device (78535506) Encounter for removal and reinsertion of intrauterine contraceptive device (Z30.433) Active confirmed Problem History of Hodgkin lymphoma (123263217) Personal history of Hodgkin lymphoma (Z85.71) Active confirmed Problem History of non-Hodgkins lymphoma (455912243) Personal history of non-Hodgkin lymphomas (Z85.72) Active confirmed Problem Menopause (338425935) Menopausal and female climacteric states (N95.1) Active confirmed Problem Hypothyroidism (32769160) Unspecified hypothyroidism (244.9) Active confirmed Major Problem Pure hypercholesterolemia (087482253) Pure hypercholesterolemia (272.0) Active confirmed Major Problem Hyperlipidemia (39717519) Other and unspecified hyperlipidemia (272.4) Active confirmed Major Problem Obesity (517471758) Obesity, uns pecified (278.00) Active confirmed Diag Problem Depressive disorder (42565170) Depressive disorder, not elsewhere classified (311) Active confirmed Major Problem Benign essential hypertension (7869901) Essential hypertension, benign (401.1) Active confirmed Major Problem Essential hypertension (65701059) Unspecified essential hypertension (401.9) Active confirmed Major Problem Acute sinusitis (98047039) Acute sinusitis, unspecified (461.9) Active confirmed Diag Problem Vulvovaginitis (disorder) (66262929) Unspecified vaginitis and vulvovaginitis (616.10) Active confirmed Diag Problem Asthma (disorder) (730250309) Asthma, unspecified, unspecified status (493.90) Active confirmed Major Problem Esophageal reflux (842482252) Esophageal reflux (530.81) Active confirmed Major Problem Osteoarthritis (910762548) Osteoarthrosis, unspecified whether generalized or localized, unspecified site (715.90) Active confirmed Major Problem Joint pain (finding) (87051384) Pain in joint, site unspecified (719.40) Active confirmed Diag Problem Sleep apnea (61075251) Unspecified sleep apnea (780.57) Active confirmed Diag Problem Shortness of breath (113742133) Shortness of breath (786.05) Active confirmed Diag Problem Gynecological examination normal (224330043893066) Routine gynecological examination (V72.31) Active confirmed Major Vital Signs Temperature 97.8 degrees Fahrenheit 02/22/2024 Blood pressure diastolic 70 mm Hg 02/22/2024 Height 63 in 02/22/2024 Blood pressure systolic 108 mm Hg 02/22/2024 Weight 231 lbs 02/22/2024 BMI 40.92 kg/m2 02/22/2024 Encounters Encounter Location Date Provider Diagnosis [facility] [email or web address] [address] [employer] [address] [address] 02/22/2024 Tessa Dawson Encounter for gynecological examination (general) (routine) without abnormal findings Z01.419 ; Encounter for screening mammogram for malignant neoplasm of breast Z12.31 ; Personal history of Hodgkin lymphoma Z85.71 ; Cardiomyopathy due to drug and external agent I42.7 and Dense breasts, unspecified R92.30 [facility] [email or web address] [address] [employer] [address] [address] 06/12/2023 Tessa Dawson [facility] [email or web address] [address] [employer] [address] [address] 02/23/2024 Tessa Dawson Glycosuria R81 Assessments Encounter [...] RECURRENCE ON HER LUNG. REFERRED PAT TO [facility] FOR FURTHER EVALUATION AND MX. 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 ADVISED PAT TO SEED TX AT [facility]. THEY HAVE AN ONCOLOGY-CARDIOLOG Y SECTION. 02/22/2024 [...] URINE CULTURE 02/16/2023 [facility] 02/22/2024 [facility] 09/10/2018 [facility] 02/16/2023 [facility] Scre[facility] 02/10/2022 PELVIC ULTRASOUND W/TRANSVAGINAL 022 CBC, Platelet, No Differential-804951 Hgb A1c with eAG Estimation-[id number] 02/22 Lipid Panel-544390 02/23/2024 Comp. Metabolic Panel [phone] Next Appt Details Provider Name:Tessa moise, 02/27/2025 01:00:00 PM, [address] [facility] [facility], [address], [place], [address], Insurance Providers Payer Name Payer Address Payer Phone Subscriber Number Group Number Insured Name Patient Relationship to Insured Coverage Start Date Coverage End Date [employer] OF [facility] [address] [place] [address] [phone] [id number] PILO HAYDEN Self - patient is the [...]
--- OUTSIDE RECORDS SUMMARY | 2024-04-28 10:36 | XMS_ITS | Encounter Summary ---
Author Organization [facility] Address [address] [place] [address] Care Team Providers Care Bureau Director Name Role Phone Huong Johnson MD Primary Care Provider [phone] Encounter Details Date Type Department Care Team (Late st Contact Info) Description 03/18/[address] [facility] - Main Lab [address] [facility] [place] [address] Darien Smith MD [address] [place] [address] [address] [place], [address] Anemia, unspecified Social History Tobacco Use [...] ORDERABLES Final Resul t Performing Organization Address City/[facility]/ZIP Co de Phone Number [facility] [address] [place] [address], [place] [phone] * (ABNORMAL) Thyroid stimulating hormone (03/18/2024 6:30 AM EST) [facility] TSH 5.29(H) 0.40 - 4.00 mcIU/mL LAB CHEMISTRY METHOD 03/18/2024 12:02 PM EST [facility] Blood Venous blood specimen / Unknown Venipuncture / Unknown 03/18/2024 6:30 AM EST 03/18/2024 10:39 AM EST us Darien Smith MD LAB BLOOD ORDERABLES Final Resul t [facility] [address] [place] [address], [place] [phone] * (ABNORMAL) Comprehensive metabolic panel (03/18/2024 6:30 AM EST) [facility] Sodium 140 133 - 145 mmol/L LAB CHEMISTRY METHOD 03/18/2024 12:01 PM EST [facility] Potassium 5.5 3.5 - 5.5 mmol/L LAB CHEMISTRY METHOD 03/18/2024 12:01 PM [facility] Chloride 107 96 - 110 mmol/L LAB CHEMISTRY METHOD 03/18/2024 12:01 PM [facility] CO2 26 21 - 32 mmol/L LAB CHEMISTRY METHOD 03/18/2024 12:01 PM [facility] Anion Gap 7 3 - 11 LAB CHEMISTRY METHOD 03/18/2024 12:01 PM [facility] Glucose 75 70 - 100 mg/dL LAB CHEMISTRY METHOD 03/18/2024 12:01 PM [facility] BUN 9 5 - 25 mg/dL LAB CHEMISTRY METHOD 03/18/2024 12:01 PM [facility] Creatinine 0.78 0.50 - 1.10 mg/dL LAB CHEMISTRY METHOD 03/18/2024 12:01 PM [facility] eGFR 89 >=60 mL/min/1. 73m2 LAB CHEMISTRY METHOD 03/18/2024 12:01 PM [facility] Comment:Calculation based on the??Chronic Kidney Disease Epidemiology Collaboration (CKD-EPI) equation refit??without adjustment for race. BUN/Creatinine Ratio 11.5 LAB CHEMISTRY METHOD 03/18/2024 12:01 PM [facility] Calcium 8.6 8.5 - 10.5 mg/dL LAB CHEMISTRY METHOD 03/18/2024 12:01 [facility] AST (SGOT) 22 10 - 42 unit/L LAB CHEMISTRY METHOD 03/18/2024 12:01 [facility] ALT (SGPT) 14 10 - 60 unit/L LAB CHEMISTRY METHOD 03/18/2024 12:01 PM [facility] Alkaline Phosphatase 136(H) 42 - 121 unit/L LAB CHEMISTRY METHOD 03/18/2024 12:01 PM [facility] Total Protein 5.7(L) 6.0 - 8.0 g/dL LAB CHEMISTRY METHOD 03/18/2024 12:01 PM [facility] Albumin 2.6(L) 3.2 - 5.0 g/dL LAB CHEMISTRY METHOD 03/18/2024 12:01 PM [facility] Total Bilirubin 0.5 0.0 - 1.4 mg/dL LAB CHEMISTRY METHOD 03/18/2024 12:01 PM [facility] Blood Venous blood specimen / Unknown Venipuncture / Unknown 03/18/2024 6:30 AM EST 03/18/2024 10:39 AM EST us Darien Smith MD LAB BLOOD ORDERABLES Final Resul t [facility] [address] [place] [address], [place] [phone] * (ABNORMAL) Complete blood count (03/18/2024 6:30 AM EST) WBC 13.0(H) 4.8 - 10.8 K/mcL LAB HEMETOLOGY METHOD 03/18/2024 11:21 AM [facility] RBC 3.70(L) 3.80 - 4.80 M/mcL LAB HEMETOLOGY METHOD 03/18/2024 11:21 AM [facility] Hemoglobin 10.3(L) 11.5 - 16.0 g/dL LAB HEMETOLOGY METHOD 03/18/2024 11:21 AM [facility] Hematocrit 33.4(L) 35.0 - 47.0 % LAB HEMETOLOGY METHOD 03/18/2024 11:21 AM [facility] MCV 90.8 79.0 - 98.0 FL LAB HEMETOLOGY METHOD 03/18/2024 11:21 AM [facility] MCH 28.0 27.0 - 32.0 pcg LAB HEMETOLOGY METHOD 03/18/2024 11:21 AM [facility] MCHC 30.8(L) 32.0 - 37.0 g/dL LAB HEMETOLOGY METHOD 03/18/2024 11:21 AM EST [facility] RDW 15.1(H) 11.0 - 15.0 % LAB HEMETOLOGY METHOD 03/18/2024 11:21 AM [facility] Platelets 608(H) 130 - 400 K/mcL LAB HEMETOLOGY METHOD 03/18/2024 11:21 AM [facility] MPV 11.2(H) 7.0 - 11.0 FL LAB HEMETOLOGY METHOD 03/18/2024 11:21 AM [facility] NRBC 0.0 <1.0 % LAB HEMETOLOGY METHOD 03/18/2024 11:21 AM [facility] NRBC Absolute 0.00 <0.10 K/mcL LAB HEMETOLOGY METHOD 03/18/2024 11:21 AM [facility] Blood Venous blood specimen / Unknown Venipuncture / Unknown 03/18/2024 6:30 AM EST 03/18/2024 10:39 AM EST us Darien Smith MD LAB BLOOD ORDERABLES Final Resul t [facility] [address] [place] [address], documented in this encounter Visit Diagnoses Diagnosis Anemia, unspecified documented in this encounter Care Teams Bureau Director Relationship Specialty Start Date End Date Huong Johnson MD [address] [place] [address] PCP - General Internal Medicine 03/03/24 documented as of this encounter
--- OUTSIDE RECORDS SUMMARY | 2024-04-28 10:36 | XMS_ITS | Data Portability ---
Author Organization [facility], Main Office Address [address], [address] [place] [address] Care Team Providers Care Sound Editor Name Role Phone [facility] OTHER ADRIAN CORDERO Primary Care Provider [phone] Assessment Encounter Date Assessment Date Assessment LastModified [...] Time Liver function tests outside reference range 341052239 Active [address] [facility] [address], [address], [place], [address], [facility] [address] [facility] 5 07:37:37 Allergic rhinitis 45142446 Active [address] [facility] [address], [address], [place], [address], [facility] 5 07:37:46 Anxiety 29798035 Active [address] [facility] [address], [address], [place], [address], [facility] 5 07:37:54 Asthma 354524889 Active [address] [facility] [address], [address], [place], [address], [facility] 5 07:38:02 Gastroesophag eal reflux disease 222643676 Active [address] [facility] [address], [address], [place], [address], [facility] 5 07:38:10 History of Hodgkin lymphoma 698301825 Active [address] [facility] [address], [address], [place], [address], [facility] 5 07:38:45 Migraine 82658731 Active [address] [facility] [address], [address], [place], [address], [facility] 5 07:38:53 Mood disorder 72073426 Active [address] [facility] [address], [address], [place], [address], [facility] 5 07:39:02 Obstructive sleep apnea syndrome 37595732 Active [address] [facility] [address], [address], [place], [address], [facility] 5 07:39:13 Hypothyroidis m 69307849 Active [address] [facility] [address], [address], [place], [address], [facility] 5 07:39:22 Obesity 329705572 Active [address] [facility] [address], [address], [place], [address], [facility] 5 07:39:38 Adenomatous polyp of colon 084594880 Active [address] [facility] [address], [address], [place], [address], [facility] 5 07:40:10 Coronary arteriosclero sis 65911297 Active [address] [facility] [address], [address], [place], [address], [facility] 5 07:45:49 Acute respiratory failure 74675450 Active [address] [facility] [address], [address], [place], [address], [facility] 5 07:46:00 Pneumonia 854774360 Active [address] [facility] [address], [address], [place], [address], [facility] 5 07:46:08 Pleural effusion 42092740 Active [address] [facility] [address], [address], [place], [address], [facility] 5 07:46:27 Atypical chest pain 834165728 Active 2024 [facility] [address] [facility], [address], [place], [address], [facility] 5 08:00:44 Enteritis of intestine 9667618741 Active 2024 [facility] [address] [facility], [address], [place], [address], [facility] 5 08:01:43 Anterior chest wall pain 069005836 Active 2024 Courtney Hilton MD [address] [place] [address], [address], [place], [address], [facility] 5 13:31:52 Ileitis 05564225 Active 2024 Courtney Hilton MD [address] [place] [address] St, [address], [place], [address], [facility] 5 14:10:16 Insulin resistance 579653616 Active 2024 Courtney Hilton MD [address], [address], [place], [address], [facility] 5 14:16:36 Anemia 923262920 Active 2024 Courtney Hilton MD [address] [facility], [address], [place], [address], [employer] 5 14:26:33 Problem Notes None recorded. Medical Equipment None Reported. Allergies Allergen ID Allergen Name Allergen Category Reaction Reaction Severity Criticality Documentation Date Start Date Code Code System Note Provider Name and Address Organization Details Recorded Time 39315 oxycodone medicatio n itching rash Not available Not available high 03/16/20242023 7804 RxNorm Not Available Not Available Not Available 60913 Gastrogra fin medicatio n Not available Not available Not available 03/16/2024 20381 5 RxNorm Not Available Not Available Not Available 15226 Substance with sulfonami de structure and antibacte rial mechanism of action (substanc e) medicatio n Not available Not available Not available 03/16/2024 30958 8003 SNOMED Not Available Not Available Not Available 52061 acetamino phen / oxycodone medicatio n Not available Not available Not available 03/16/2024 93005 3 RxNorm Not Available Not Available Not Available 76542 diatrizoa te meglumine medicatio n Not available Not available Not available 03/17/2024 3320 RxNorm Not Available Not Available Not Available 94524 acetamino phen / hydrocodo ne medicatio n hives Not available high 03/17/20242023 98196 2 RxNorm Not Available Not Available Not Available Vitals Date Recorded Body weight Body mass index (BMI) Body height Heart rate Respiratory rate Body temperature Oxygen saturation Oxygen saturation in Arterial blood by Pulse oximetry Systolic blood pressure Diastolic blood pressure Provider Name and Address Organization Details Last Updated DateTime 5 125030. 72 g 42.6 kg/m2 154.94 cm 76 /min 18 /min 98.6 [degF] 95 % 95 % 128 mm[Hg] 71 mm[Hg] Courtney Hilton MD [address] [facility], [address], [place], [address], [employer] [facility] 5 12:31:48 Date Recorded Body height Heart rate Respiratory rate Body temperature Oxygen saturation Oxygen saturation in Arterial blood by Pulse oximetry Systolic blood pressure Diastolic blood pressure Provider Name and Address Organization Details Last Updated DateTime 5 154.94 cm 80 /min 18 /min 98.2 [degF] 97 % 97 % 135 mm[Hg] 70 mm[Hg] NETO LIAO NP [address] [facility], [address], [place], [address], [facility] 5 14:13:38 Date Recorded Body height Body mass index (BMI) Body weight Heart rate Respiratory rate Body temperature Oxygen saturation Oxygen saturation in Arterial blood by Pulse oximetry Systolic blood pressure Diastolic blood pressure Provider Name and Address Organization Details Last Updated DateTime 5 154.94 cm 41.2 kg/m2 52412.1 4 g 87 /min 18 /min 97.6 [degF] 99 % 99 % 124 mm[Hg] 70 mm[Hg] JAZMIN MOLINA [address] [facility], [address], [place], [address], [facility] 5 21:27:51 Social History Question Answer Notes LastModified by Organizat ion Details LastModified Time Tobacco Smoking Status Never Smoker Courtney Hilton MD [address] [facility], [address], [place], [address], [facility] 03/17/2024 12:59:09 Do You Have An [...] Do You Have A Medical Power Of Zoology Professor? Yes Not Invoked Information not available 03/17/2024 [...] Recorded Time Tdap 3 completed Donavon Sushil-Caal [facility] 03/17/2024 16:04:28 pneumococcal polysaccharide PPV23 7 completed Donavon Jeromes-Caal [facility] 03/17/2024 16:04:40 influenza, unspecified formulation 6 completed Donavon Jeromes-Caal [facility] 03/17/2024 16:04:55 influenza, unspecified formulation 7 completed [facility] 16:04:59 influenza, unspecified formulation 8 completed Donavon Jeromes-Caal [facility] 03/17/2024 16:05:04 influenza, unspecified formulation 1 completed Donavon Jeromes-Caal [facility] 03/17/2024 16:05:08 influenza, unspecified formulation 2 completed Donavon Jeromes-Caal null, [facility] 03/17/2024 16:05:12 MMRV 7 completed [facility] 16:05:27 MMRV 7 completed [facility] 03/17/2024 16:05:32 SARS-COV-2 (COVID-19) vaccine, UNSPECIFIED 0 completed [facility] 03/17/2024 16:05:44 SARS-COV-2 (COVID-19) vaccine, UNSPECIFIED 1 completed Donavon Parsons [facility], [facility] 03/17/2024 16:05:47 SARS-COV-2 (COVID-19) vaccine, UNSPECIFIED 1 completed Donavon Parsons [facility], [facility] 03/17/2024 16:05:52 SARS-COV-2 (COVID-19) vaccine, UNSPECIFIED 2 completed Donavon Parsons [facility], [facility] 03/17/2024 16:05:56 SARS-COV-2 (COVID-19) vaccine, UNSPECIFIED 2 completed Donavon Parsons [facility], [facility] 03/17/2024 16:06:02 SARS-COV-2 (COVID-19) vaccine, UNSPECIFIED 4 completed Donavon Parsons [facility] 03/17/2024 16:06:06 zoster, unspecified formulation 0 completed Donavon Parsons [facility] 03/17/2024 16:06:19 Past Encounters Encounter ID Performer Location Encounter Start Date Encounter Closed Date Diagnosis/Indication Diagnosis SNOMED-CT Code Diagnosis ICD10 Code Diagnosis Note [id number] [facility] [address] [place] [address] 03/16/2024 07:35:02 03/17/2024 10:55:49 Coronary arteriosclerosis 83465451 I25.10 Status post KAMRYN to the proximal RCA back in [place] ue aspirin and atorvastat inmonitor cp Hypothyroidism 27551147 E03.9 Continue levothyrox ine 125 mcg dailymonit or tsh/t4 Gastroesop hageal reflux disease 380179090 K21.9 continue pantoprazo lemonitor ss Migraine 36340545 G43.90 9 w/ auramonito r Anxiety 27166515 F41.9 Continue sertraline , and as needed lorazepamm onitor mood and affectpsyc h prn Atypical chest pain 1025 34100 R07.89 Chronic left chest wall pain after thoracotom yGets scheduled T6, T7, T8 nerve blocks with [facility] almost monthly.Co ntinue pregabalin and nortriptyl ine Enteritis of intestine 7658709526 K52.9 Continue home mesalamine and ursodiol History of Hodgkin lymphoma 115120024 Z85.71 status post mantle field radiation back in 1992 in remission for many years 4 excisional biopsy of a right groin lymph node, and left upper lung lobe mini thoracotom y after a suspicious PET scan (both biopsies negative for malignancy monitor and f/up with oncology as needed Pleural effusion 2889803 8 J90 history of recurrent left pleural effusions/ pneumothor aces status to thoracente ses (reportedl y negative for malignancy ) and eventually pleurodesi sfollows with pulmshe will sched f/up apt when she is stronger Obstructiv e sleep apnea syndrome 00543714 G47.33 CPAP qhs Obesity 879098312 E66.9 monitor diet and weightsedu cation Mood disorder 76871243 F 39 see depression Asthma 441001398 J45.90 9 mild asthmarece ntly tx for exaccontin ue symbicort and trelegy dailynebz stopped yesterday prior to dcmonitor need to restart Acute resp iratory failure 35947209 J96.00 dt asthma exac and multifocal PNAnow on RAstill sob with exertion, could be dt deconditio ningmonito r resp status Pneumonia 608814502 J18. 9 multifocal PNAmonitor cbc on admit and weeklyrepe at CXR in 6 weeksconti nue augmentin bid (ends 03/16)make f/up with her pulm Liver func tion tests outside reference range 971468178 R94.5 monitor LFTscmp on admit and weekly [id number] Courtney Hilton MD [facility] [address] [place] [address] 03/17/2024 12:00:28 03/18/2024 11:46:19 Coronary arteriosclerosis 86367007 I25.10 Status post KAMRYN to the proximal RCA in 08/2022No recent sxs.Contin ue ASA 81 mg qd and atorvastat in 40 mg qd.Monitor for sxs.F/U with cardio as planned Hypothyroidism 67449168 E03.8 Last TSH 0.48 in 02/2024.In 09/2023 TSH had been low and levothyrox ine changed to 6d/wk, unclear when it got increased again, may have been inpt error.Cont inue levothyrox ine 125 mcg qdWill recheck TSH and FT4 with next labs Gastroesop hageal reflux disease 199361406 K21.9 No current sxs.Contin ue pantoprazo le 40 mg qd.Monitor GI sxs. Migraine 71616034 G43.80 9 Relatively frequent in hx.Follows with neuro.Cont inue Emgality 120 mg monthly and nortriptyl ine 10 mg qhs.Monito r sxs.F/U as planned. Anxiety 30969031 F41.1 Mood good today.Cont inue sertraline 125 mg qd and lorazepam 0.5 mg BID prn.Monito r mood.Consu lt psych prn History of Hodgkin lymphoma 796789733 Z85.71 S/P mantle field radiation back in 1992 in remission for many yearsF/U with oncology prn Pleural effusion 3114365 8 J90 In hx, only minor on this admission. Monitor Obstructiv e sleep apnea syndrome 85812518 G47.33 Improved after gastric bypass surgery, but back on CPAP now.Contin ue CPAP with sleep.F/U with pulmonary. Obesity 665387082 E66.01 Z68.41 As above. Asthma 045976522 J45.40 Almost back to baseline.D /C med list had symbicort and trelegy listed.Pt says symbicort doesn't work, she is on trelegy at home. Actually has a brand new one in her nightstand here.Resta rt trelegy 100/62.5/2 5 mcg qdContinue albuterol q 6 hrs prn.Monito r resp status. Acute resp iratory failure 14935836 J96.01 Due to PNA causing asthma exacerbati on.Now resolved and weaned back to RA.Continu e asthma meds as below.Nadia tor resp status. Pneumonia 464348646 J15. 8 S/P multifocal PNAComplet ed course of abxs with Augmentin 875 mg BID on 03/16.Contin ue asthma meds as below.Very deconditio roberto.Needs PT/OT for strengthen ing, balance, gait training, safety and function.C ontinue fall precaution s.Monitor for safety.Mon itor resp status. 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 History of bariatric surgical procedure 916784816 Z98.84 S/P gastric bypass in 2018.Nestor nue ursodiol 500 mg BID.Contin ue to encourage healthy eating and continued wt. loss. Ileitis 10333728 K52.9 Under good control on current regimen.Co ntinue mesalamine 1.5 mg qd.Monitor sxs.F/U with GI as planned. Insulin resistance 56036 5000 E88.810 Sugars mostly WNL inpt, but HgA1C 6.2Encoura ge healthy eating and continued wt. loss.Monit or as outpt. Vitamin D deficiency 347 42078 E56.8 Continue vitamin D 2000 IU qd.Monitor levels prn Anemia 621296295 D64.89 Iron low inpt with high ferritin (likely due to infection) .Will start iron gluconate 324 mg qd. with vitamin C 500 mg qd for absorption .Monitor labs [id number] NETO LIAO NP [facility] [address] [place] [address] 03/24/2024 12:46:00 03/25/2024 13:32:28 Pneumonia 876860631 J15.8 S/P multifocal PNAComplet ed course of abxs with Augmentin 875 mg BID on 03/16.Contin ue asthma meds as below.Very deconditio roberto.Needs PT/OT for strengthen ing, balance, gait training, safety and function.G oal is to return home.Nestor nue fall precaution s.Monitor for safety.Mon itor resp status. Acute resp iratory failure 05267881 J96.01 Due to PNA causing asthma exacerbati on.Now resolved and weaned back to RA.Continu e asthma meds as below.Nadia tor resp status. Pleural effusion 5865679 8 J90 In hx, only minor on this admission. Monitor Asthma 916706386 J45.40 Almost back to baseline.D /C med list had symbicort and trelegy listed.Pt says symbicort doesn't work, she is on trelegy at home. Actually has a brand new one in her nightstand here.Resta rt trelegy 100/62.5/2 5 mcg qdContinue albuterol q 6 hrs prn.Monito r resp status. 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 Coronary arteriosclerosis 95432281 I25.10 Status post KAMRYN to the proximal RCA in 08/2022No recent sxs.Contin ue ASA 81 mg qd and atorvastat in 40 mg qd.Monitor for sxs.F/U with cardio as planned Hypothyroidism 15301417 E03.8 Last TSH 0.48 in 02/2024.In 09/2023 TSH had been low and levothyrox ine changed to 6d/wk, unclear when it got increased again, may have been inpt error.Cont inue levothyrox ine 125 mcg qdWill recheck TSH and FT4 with next labs Gastroesop hageal reflux disease 570284003 K21.9 No current sxs.Contin ue pantoprazo le 40 mg qd.Monitor GI sxs. Insulin resistance 92644 5000 E88.810 Sugars mostly WNL inpt, but HgA1C 6.2Encoura ge healthy eating and continued wt. loss.Monit or as outpt. Anemia 216069752 D64.89 Iron low inpt with high ferritin (likely due to infection) .Will start iron gluconate 324 mg qd. with vitamin C 500 mg qd for absorption .Monitor labs Migraine 93966058 G43.80 9 Relatively frequent in hx.Follows with neuro.Cont inue Emgality 120 mg monthly and nortriptyl ine 10 mg qhs.Monito r sxs.F/U as planned. Anxiety 17245256 F41.1 Mood good today.Cont inue sertraline 125 mg qd and lorazepam 0.5 mg BID prn x 14 days, re-eval 03/28Monito r mood.Consu lt psych prn Ileitis 09990110 K52.9 Under good control on current regimen.Co ntinue mesalamine 1.5 mg qd.Monitor sxs.F/U with GI as planned. History of Hodgkin lymphoma 715734174 Z85.71 S/P mantle field radiation back in 1992 in remission for many yearsF/U with oncology prn Obstructiv e sleep apnea syndrome 25858243 G47.33 Improved after gastric bypass surgery, but back on CPAP now.Contin ue CPAP with sleep.F/U with pulmonary. History of bariatric surgical procedure 753274815 Z98.84 S/P gastric bypass in 2018.Nestor nue ursodiol 500 mg BID.Contin ue to encourage healthy eating and continued wt. loss. Obesity 156517192 E66.01 Z68.41 As above. Vitamin D deficiency 347 04105 E56.8 Continue vitamin D 2000 IU qd.Monitor levels prn Dizziness 903768720 R42 When OOB, usually goes away.Somet imes she feels her HR go up, which then makes her feel more SOB.Labs goodVSSChe ck orthostati c VS x 3Monitor [id number] SHARMILA KING, [place] [address] 03/25/2024 10:15:48 03/28/2024 15:28:10 Streptococcal sore throat 98785081 J02.0 highly suspicious exam for strep throatstar t amoxicilli n 500 mg q12h x 10 daystyleno l for pain control and body achessuppo rtive care with rest and fluidscepa col throat lozenge po q2h prnthroat swab [id number] [place] [address] 03/29/2024 14:07:44 03/30/2024 15:57:47 Asthenia 32210159 R53.1 lingering weakness secondary to pneumonia and recent presumed strep throatcont inue PT/OT for strengthen ing and conditioni ngdiscusse d with patient to increase fluids to minimize risk for dehydratio n that can contribute to weakness and fatigue, patient verbalizes understand ing. Asthma 203740889 J45.40 breathing is improvingc ont on trelegyCon tinue albuterol q 6 hrs prn. [id number] JAZMIN MOLINA [facility] [address] [place] [address] 03/30/2024 09:46:22 03/31/2024 15:25:42 Asthenia 06091582 R53.1 lingering weakness secondary to pneumonia and recent presumed strep throatreco mmend continuing PT/OT for strengthen ing and conditioni ngdiscusse d with patient to increase fluids to minimize risk for dehydratio n that can contribute to weakness and fatigue, patient verbalizes understand ing. Asthma 412985881 J45.40 breathing is improvingc ont on trelegyCon tinue albuterol q 6 hrs prn. Anemia 600831841 D64.89 iron gluconate 324 mg qd. with vitamin C 500 mg qd for absorption . 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 Anxiety 70387898 F41.1 Continue sertraline 125 mg qd Coronary arteriosclerosis 17522117 I25.10 Continue ASA 81 mg qd and atorvastat in 40 mg qd.Monitor for sxs. Enteritis of intestine 3960320412 K52.9 Continue mesalamine and ursodiol Gastroesop hageal reflux disease 417223398 K21.9 Continue pantoprazo le 40 mg qd. Hypothyroidism 57271564 E03.8 Continue levothyrox ine 125 mcg qd Ileitis 77362811 K52.9 Continue mesalamine 1.5 mg qd.F/U with GI as planned. Obstructiv e sleep apnea syndrome 45729471 G47.33 Continue CPAP with sleep.F/U with pulmonary. Health Concerns Section Related Observation LastModified by Organization Rodrigo manley LastModified Time None Recorded Concern Status LastModified by Organization Details LastModified Time None Recorded Advance Directives Directive Y: Payers Encounter Date Sequence Insurance Name Policy Number Policy Chilel Covered Member ID Chilel Member ID Guarantor Name 03/17/2024 1 [facility] (MEDICARE REPLACEMENT HMO) [id number] Rose Marie Ross [id number] Rose Marie Ross 03/24/2024 1 [place] H[place]) [id number] Rose Marie Ross [id number] Rose Marie Ross 03/25/2024 1 [place] HMO) [id number] Rose Marie Ross [id number] Rose Marie Escobedoo 03/29/2024 1 [place] HMO) [id number] Rose Marie Ross [id number] Rose Marie Escobedoo 03/30/2024 1 [place] HMO) [id number] Rose Marie Ross [id number] Rose Marie Ross Notes Date Note [...] the right groin lymph node on 03/12/23 ([facility] - all biopsies negative for malignancy). A complication of that procedure was left chest wall pain syndrome requiring T6-8 nerve blocks every month via [facility].She was in her normal state of [facility] however her found her on the couch with decreased responsiveness, vomitingand therefore she was fought to [facility] where she was admitted for 5 days and treated for right middle lobe pneumonia, aspiration pneumonia and acute hypoxic respiratory failure. Sputum cultures showed safia and she was discharged on Bactria, fluconazole and 4 LPM of O2 (not previously on O2 at home).She was discharged at that time. She wasdischarged to [address] [place] [address]{03/07} around 7pm.After her admission therepacheco developed severe SOB after a coughing fit and was transferred to [facility] on 03/09/24. In the ED a CT [...] wall pain since thoracotomy. Courtney Hilton MD [address] [place] [address], [address], [place], [address], [facility] 03/17/2024 21:11:11 5 text/html Rose Marie is [...] the right groin lymph node on 03/12/23 ([facility] - all biopsies negative for malignancy). A complication of that procedure was left chest wall pain syndrome requiring T6-8 nerve blocks every month via [facility].She was in her normal state of [facility] however her found her on the couch with decreased responsiveness, vomitingand therefore she was brought to [facility] where she was admitted for 5 days and treated for right middle lobe pneumonia, aspiration pneumonia and acute hypoxic respiratory failure. Sputum cultures showed safia and she was discharged on Bactrim, fluconazole and 4 LPM of O2 (not previously on O2 at home).She was discharged at that time. She wasdischarged to [address] [place] [address]{03/07} around 7pm.After her admission rain developed severe SOB after a coughing fit and was transferred to [facility] on 03/09/24. In the ED a CT [...] pain since thoracotomy. NETO LIAO NP [address] [facility], [address], [place], [address], [facility] 03/24/2024 14:27:36 5 text/html Pt is a [...] wall pain since thoracotomy. [facility] [address] [facility], [address], [place], [address], [facility] 03/25/2024 10:23:45 5 text/html Patient is a 58 yr old female seen for acute rounding visit. She is seen sitting upright in wheelchair in her room in [facility], she reports breathing has greatly improved, continues to feel tired at times but otherwise she is doing well and is looking forward to going home. Her appetite has improved she is eating and drinking ok, denies any new discomfort, no concerns with elimination. JAZMIN MOLINA [address] [facility], [address], [place], [address], [employer] 03/29/2024 21:29:50 5 text/html Discharge summary This is a 58 yo woman who is was admitted for rehab after several recent hospitalizations, most recently for a multifocal PNA with pleural effusion and asthma exacerbation with hypoxia. Pt was admitted for [facility] at [facility] and treated for right middle lobe pneumonia, aspiration pneumonia and acute hypoxic respiratory failure. Hours after her dc to rehab she was brought to [facility] for acute hypoxic resp failure and required [...] therapy and nursing services. JAZMIN MOLINA [address] [facility], [address], [place], [address], [facility] [employer] 03/30/2024 10:18:52 OBGyn Episode No OBEpisode recorded.
--- OUTSIDE RECORDS SUMMARY | 2024-04-28 10:36 | XMS_ITS ---
Author Organization [facility] Address [address] [place] [address] Care Team Providers Care Web Editor Name Role Phone ADRIAN CORDERO Primary Care Provider Tessa Lemus Unavailable [phone] REASON FOR VISIT LAB SLIP FOR DIABETES TEST Encounters Encounter Location Date Provider Diagnosis [facility] [address] [facility] [address] [place] [address] 02/23/2024 Tessa Dawson Glycosuria R81 Assessments Encounter Date Diagnosis (ICD Code) Assessment Notes Treatment Notes Treatment Clinical Notes Section Notes 02/23/2024 Glycosuria (ICD-10 - R81) Plan Of Treatment Pending Test Test Name Order Date CBC, Platelet, No Differential-[id number] Hgb A1c with eAG Estimation-[id number] 02/22 Lipid Panel-[id number] 02/23/2024 Comp. Metabolic Panel [id number] 2023 Next Appt Details Provider Name:Tessa moise, 02/27/2025 01:00:00 PM, [address] [facility], [address], [place], [address], Progress Notes * ASHLEY HAYDENOB:[birth year] (58 yo F)Acc No.[id number]:02/23/2024 Patient:PILO LEON :1965???Age:58 Y???Sex:Female Address:[address] [place] [address], [address] Subjective: * Chief Complaints: * ???LAB SLIP FOR DIABETES NAGA T * Medical History:? * Surgical History:? * Hospitalization/Major Diagno stic Procedure:? * Medications:? Objective: * Vitals:? * Physical Examination:? Assessment: * Assessment: 1.?Glycosuria - R81??? Plan: * Treatment: * Procedure Codes:? * true * Date:? Generated for Corby gonzalez/Jose/Benitting on:?04/28/2024 10:36 AM EST
--- OUTSIDE RECORDS SUMMARY | 2024-04-28 10:36 | XMS_ITS | Continuity of Care Document ---
Author Organization [facility] Address [address] [place] [address]- Care Team Providers Care Mammalogy Teacher Name Role Phone Huong Johnson MD Primary Care Physician Encounter [facility] Date(s): 03/25/24 - 04/24/24 [facility] [address] [place], [place] [address] Encounter Type: Triage Allergies, Adverse Reactions, Alerts Substance Criticality Severity Reaction Reaction Severity Status sulfonamides hives Active oxyCODONE Itchy Skin rash Active Gastrografin Active Vicodin itch Active Percocet 5/325 itching Activ e Immunizations Given and Recorded Vaccine Date Status [...] vaccine, inactivated 6 12/30/11 Gi dayana SARS-CoV-2(COVID-19)mRNA-LNP vac(bqw456) 12/26/23 Recorded tetanus/diphtheria/pertussis, acel(Tdap) 7 02/16/23 Given tetanus/diphtheria/pertussis, acel(Tdap) 03/01/12 Given UWEM-XvN-8xEII 12y+ bivalent booster vax 03/07/22 Recorded SARS-CoV-2 mRNA (oanebdu-rjrz-kstej) vax 09/08/21 Recorded SARS-CoV-2 (COVID-19) mRNA BNT-162b2 [...] 11/03/16 Recorde d 1Result Comment: Done at [facility] 2Result Comment: [facility] [id number] 3Result Comment: [facility] [id number] 4Result Comment: [12/01/2016] [facility] 5Result Comment: [02/14/2013] [facility] 6Admin Note: work 7Result Comment: [id number] 8Result Comment: Covid 19 9Result Comment: Covid 19 10Result Comment: Done at [facility] 11Result Comment: [12/01/2016] [facility] Medications albuterol CFC free 90 mcg/inh inhalation aerosol 2, puffs, Inhalation, Every 6 hours, PRN, # 8.5 Gm, Refills 2, Tot. Refills 2, Maintenance, 05/17/2409:25:00 AM EDT, Inhaler, Route to Pharmacy Electronically, NCPDP_[id number], [facility] #[id number], 157.4, cm, 05/18/23 9:45:00 EDT, Height, 93.9, [...] 0 Refills, Soft Stop, 03/09/24 6:01:00AM EST, [facility] #[id number], Partial fill upon patient request if the [...] Refills, Soft Stop, 03/09/24 6:02:00 AM EST, [facility] #[id number], Partial fill upon patient request if the [...] Refills, Maintenance, 04/10/24 12:27:00 PM EST, Tablet, [facility] #[id number], dose reduced from 137 to 125 mcg, [...] Refills, Maintenance, 02/08/24 11:36:00 AM EST, Tablet, [facility] #[id number], Partial fill upon patient request if the [...] Replace Required Details, Route to Pharmacy Electronically, [facility] #[id number], 157.4, cm, 11/05/23 12:44:00 EDT, Height, 93.5, [...] 1 Refills, Maintenance, 04/10/24 12:26:00 PM EST, [facility] #[id number], pls dispense as 90 day supplies, 157.4, [...] 1 Refills, Maintenance, 04/10/24 12:26:00 PM EST, [facility] #[id number], pls dispense as 90 day supplies, 157.4, [...] Team Personnel Name: Huong Johnson MD Position: [facility] Physician - Primary Care Member Role: PCP Address: [address] [place] [address] Adult & Pediatric [place], [place] [address] Telecom: Name: Deann Sethi RN Position: S RN Member Role: Primary Care Nurse Name: Ernestine Norris RN Position: [facility] RN Member Role: Primary Care Nurse Name: Marilea Wild MD Position: [facility] Physician - Endocrinology Member Role: Lifetime Consulting Physician Name: Nahun Garcia RN Position: [facility] RN Member Role: Primary Care Nurse Care Team Related Persons Name: SIOMARA HAYDEN Insurance Providers Guarantor name: PILO HARRISEDO Health Plan Information #: 1 Payer: [employer] Member Number: NA Policy Number: NA Group Number: NA
--- OUTSIDE RECORDS SUMMARY | 2024-04-28 10:36 | XMS_ITS | Continuity of Care Document ---
Author Organization [facility] Address [address] [place] [address]- Care Team Providers Care Foreign Languages Professor Name Role Phone Huong Johnson MD Primary Care Physician Encounter [facility] Date(s): 03/24/24 - 04/23/24 [facility] [address] [place], [place] [address] Encounter Type: Triage Allergies, Adverse [...] vaccine, inactivated 6 12/30/11 Gi dayana SARS-CoV-2(COVID-19)mRNA-LNP vac(wfj682) 12/26/23 Recorded tetanus/diphtheria/pertussis, acel(Tdap) 7 02/16/23 Given tetanus/diphtheria/pertussis, acel(Tdap) 03/01/12 Given NXPD-LhL-9oTDE 12y+ bivalent booster vax 03/07/22 Recorded SARS-CoV-2 mRNA (dmdybbm-jsgl-xxwyu) vax 09/08/21 Recorded SARS-CoV-2 (COVID-19) mRNA BNT-162b2 [...] 11/03/16 Recorde d 1Result Comment: Done at [facility] 2Result Comment: [facility] [id number] 3Result Comment: [facility] [id number] 4Result Comment: [12/01/2016] [facility] 5Result Comment: [02/14/2013] [facility] 6Admin Note: work 7Result Comment: [id number] 8Result Comment: Covid 19 9Result Comment: Covid 19 10Result Comment: Done at [facility] 11Result Comment: [12/01/2016] [facility] Medications albuterol CFC free 90 mcg/inh inhalation aerosol 2, puffs, Inhalation, Every 6 hours, PRN, # 8.5 Gm, Refills 2, Tot. Refills 2, Maintenance, 05/17/2409:25:00 AM EDT, Inhaler, Route to Pharmacy Electronically, NCPDP_ID-[id number], [facility] #[id number], 157.4, cm, 05/18/23 9:45:00 EDT, Height, 93.9, [...] 0 Refills, Soft Stop, 03/09/24 6:01:00AM EST, [facility] #[id number], Partial fill upon patient request if the [...] Refills, Soft Stop, 03/09/24 6:02:00 AM EST, [facility] #[id number], Partial fill upon patient request if the [...] Refills, Maintenance, 04/10/24 12:27:00 PM EST, Tablet, [facility] #[id number], dose reduced from 137 to 125 mcg, [...] Refills, Maintenance, 02/08/24 11:36:00 AM EST, Tablet, [facility] #[id number], Partial fill upon patient request if the [...] Replace Required Details, Route to Pharmacy Electronically, [facility] #[id number], 157.4, cm, 11/05/23 12:44:00 EDT, Height, 93.5, [...] 1 Refills, Maintenance, 04/10/24 12:26:00 PM EST, [facility] #[id number], pls dispense as 90 day supplies, 157.4, [...] 1 Refills, Maintenance, 04/10/24 12:26:00 PM EST, [facility] #[id number], pls dispense as 90 day supplies, 157.4, [...] Team Personnel Name: Huong Johnson MD Position: [facility] Physician - Primary Care Member Role: PCP Address: [address] [place] [address] Adult & Pediatric [place], [place] [address] Telecom: Name: Deann Sethi RN Position: S RN Member Role: Primary Care Nurse Name: Ernestine Norris RN Position: [facility] RN Member Role: Primary Care Nurse Name: Mariela Wild MD Position: [facility] Physician - Endocrinology Member Role: Lifetime Consulting Physician Name: Nahun Garcia RN Position: [facility] RN Member Role: Primary Care Nurse Care Team Related Persons Name: SIOMARA HAYDEN Insurance Providers Guarantor name: PILO HARRISEDO Health Plan Information #: 1 Payer: [employer] Member Number: NA Policy Number: NA Group Number: NA
--- OUTSIDE RECORDS SUMMARY | 2024-04-28 10:36 | XMS_ITS ---
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 REFERRED PAT TO [facility] FOR FURTHER EVALUATION AND MX. Cardiomyopathy due to drug a nd external agent DISCUSSED CHF AND CARDIOMYOPATHY DUE TO RADIATION EXPOSURE. ADVISED PAT TO SEED TX AT [facility]. THEY HAVE AN ONCOLOGY-CARDIOLOGY SECTION. Dense breasts, unspecified DISCUSSED DENSE BREASTS ON MAMMOGRAM AND ITS IMPLICATIONS. 3D MAMMOGRAMS WERE RECOMMENDED. Pending Test Test Name Order Date MM Digital Mammo Screening 02/22/2024 Next Appt Details Follow Up: 1 Year, Reason: Provider Name:Tessa moise, 02/27/2025 01:00:00 PM, [address] [facility], [address], [place], [address], Progress Notes * ASHLEY HAYDENOB:[birth year] (58 yo F)Acc No.[id number]:02/22/2024 PROGRESS NOTES Patient:?PILO HAYDEN Appointment Provider:?Tessa moise M.D. :1965???Age:58 Y???Sex:Female D ate:02/22/2024 Address:[address] [place], [place] [id number] Pcp:ADRIAN CORDERO Subjective: * Chief Complaints: * ???Annual MAINTENANCE MGR PhysicalAnnual MAINTENANCE MGR Physical 50-59* * HPI: ???New/Follow-up Patient Consult:? MIRENA IUD WAS INSERTED IN 2014 TO CONTROL MENORRHAGIA AND REMOVED IN 2023 WHEN HORMONE EVALUATION CONFIRMED MENOPAUSE.? NO BLEEDING.?? SHE IS AND USES LUBRICANTS FOR DYSPAREUNIA.?? SHE HAS A HX OF HODGKIN'S LYMPHOMA IN HER 'S.? PET SCAN DONE AT [facility] SHOWED LESIONS IN THE LEFT INGUINAL AREA AND LEFT UPPER LUNG LOBE.? SHE UNDERWENT THORACOTOMY AT [facility] THIS SUMMER BUT THE MASS WAS NOT COMPLETELY EXCISED.? PATHOLOGY REPORT SHOWED BENIGN FINDINGS.?? SHE HAD RADIATION THERAPY ACROSS HER CHEST IN HER 'S FOR LYMPHOMA AND NOW HAS S/SX OF CHF.? SHE IS OFTEN SHORT OF BREATH AND CAN NOT PERFORM HER NORMAL ACTIVITIES.? SHE IS ON LEAVE [facility].? SHE WANTS TO CONSULT PROGRAMS PROVIDING EVALUATION [...] adequate calcium via diet and supplementation ?Significant MAINTENANCE MGR problems:?no significant nba player symptoms or problems * ROS:?general:?no?chest pain.?no?palpitations.?no?headache.?no?cough.?no?shortness of breath.?no?fever.?no?unexplained weight loss.?no?nausea/vomiting.?no?change in bowel movements.?no blood in stool.?no?genitourinary complaints.?no?skin complaints.? * Medical History:? * Claims Correspondence Clerk History:?/ Para?3/2.?Sexual activity?currently sexually active.?Last Pap Smear:?02/16/23 [...] RECURRENCE ON HER LUNG. REFERRED PAT TO [facility] FOR FURTHER EVALUATION AND MX.??4.?Cardiomyopathy due to drug and external agent? Notes: DISCUSSED CHF AND CARDIOMYOPATHY DUE TO RADIATION EXPOSURE. ADVISED PAT TO SEED TX AT [facility]. THEY HAVE AN ONCOLOGY-CARDIOLOGY SECTION.??5.?Dense breasts, unspecified? Notes: DISCUSSED DENSE BREASTS ON MAMMOGRAM AND ITS IMPLICATIONS. 3D MAMMOGRAMS WERE RECOMMENDED.?? * Procedure Codes:? * Preventive Medicine:? ??YOUR PREVENTIVE WELLNESS PLAN:?Osteoporosis prevention?Calcium, D, strength training.?Breast Cancer Screening (Mammogram):?annually.?Cervical Cancer Screening (Pap Smear):?q 3 years with HPV screen.?Colorectal Cancer Screening:?q 10 years.? * Follow Up:?1 Year * Images: Billing Information: * Visit Code:? 38407 Preventive Care New Pt. Age 40-64. 99590 Preventive Care Est Pt. Age 40-64. * Procedure Codes:? * Sign off status: Completed true * Appointment Provider:?Tessa Dawson M.D. Date:?02/22/2024 Generated for Corby gonzalez/Jose/eTransmitting on:?04/28/2024 10:36 AM EST History and Physical Notes * HPI (History of Present Illness) Category Sub-Category Detail Notes Category Not es New/Follow-up Patient Consult MIRENA IUD WAS INSERTED IN 2014 TO CONTROL MENORRHAGIA AND REMOVED IN 2022 WHEN HORMONE EVALUATION CONFIRMED MENOPAUSE. NO BLEEDING. SHE IS AND USES LUBRICANTS FOR DYSPAREUNIA. SHE HAS A HX OF HODGKIN'S LYMPHOMA IN HER 20'S. PET SCAN DONE AT [facility] SHOWED LESIONS IN THE LEFT INGUINAL AREA AND LEFT UPPER LUNG LOBE. SHE UNDERWENT THORACOTOMY AT [facility] THIS SUMMER BUT THE MASS WAS NOT COMPLETELY EXCISED. PATHOLOGY REPORT SHOWED BENIGN FINDINGS. SHE HAD RADIATION THERAPY ACROSS HER CHEST IN HER 20'S FOR LYMPHOMA AND NOW HAS S/SX OF CHF. SHE IS OFTEN SHORT OF BREATH AND CAN NOT PERFORM HER NORMAL ACTIVITIES. 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 SHE WANTS TO CONSULT PROGRAMS PROVIDING [...] SHE HAD A COLONOSCOPY DONE IN 2021. Group Therapy Records X 4. Annual General Health Maintenance: Current breast complaints:: no breast pain, mass, discharge, or skin changes Urinary problems:: patient salvador watson no urinary health problems or bowel health problems Calcium intake:: takes adequ ate calcium via diet and supplementation Significant MAINTENANCE MGR problems:: n o significant nba player symptoms or problems Examination Category Sub-Category Detail [...]
--- OUTSIDE RECORDS SUMMARY | 2024-04-28 10:36 | XMS_ITS | Continuity of Care Document ---
Author Organization [facility] Address [address] [place] [address]- Care Team Providers Care Buyer Agent Name Role Phone Huong Johnson MD Primary Care Physician [phone] Encounter [facility] Date(s): 03/24/24 - 04/23/24 [facility] [address] [place], [place] [address] Encounter Type: Triage Allergies, Adverse Reactions, Alerts [...] vaccine, inactivated 6 12/30/11 Gi dayana SARS-CoV-2(COVID-19)mRNA-LNP vac(asd575) 12/26/23 Recorded tetanus/diphtheria/pertussis, acel(Tdap) 7 02/16/23 Given tetanus/diphtheria/pertussis, acel(Tdap) 03/01/12 Given ZCUS-BiH-4yNTC 12y+ bivalent booster vax 03/07/22 Recorded SARS-CoV-2 mRNA (zokacer-wzmk-bcojp) vax 09/08/21 Recorded SARS-CoV-2 (COVID-19) mRNA BNT-162b2 [...] 11/03/16 Recorde d 1Result Comment: Done at [facility] 2Result Comment: [facility] [id number] 3Result Comment: [facility] [id number] 4Result Comment: [12/01/2016] [facility] 5Result Comment: [02/14/2013] [facility] 6Admin Note: work 7Result Comment: [id number] 8Result Comment: Covid 19 9Result Comment: Covid 19 10Result Comment: Done at [facility] 11Result Comment: [12/01/2016] [facility] Medications albuterol CFC free 90 mcg/inh inhalation aerosol 2, puffs, Inhalation, Every 6 hours, PRN, # 8.5 Gm, Refills 2, Tot. Refills 2, Maintenance, 05/17/2409:25:00 AM EDT, Inhaler, Route to Pharmacy Electronically, NCPDP_[id number], [facility] #[id number], 157.4, cm, 05/18/23 9:45:00 EDT, Height, 93.9, [...] 0 Refills, Soft Stop, 03/09/24 6:01:00AM EST, [facility] #[id number], Partial fill upon patient request if the [...] Refills, Soft Stop, 03/09/24 6:02:00 AM EST, [facility] #[id number], Partial fill upon patient request if the [...] Refills, Maintenance, 04/10/24 12:27:00 PM EST, Tablet, [facility] #[id number], dose reduced from 137 to 125 mcg, [...] Refills, Maintenance, 02/08/24 11:36:00 AM EST, Tablet, [facility] #[id number], Partial fill upon patient request if the [...] Replace Required Details, Route to Pharmacy Electronically, [facility] #[id number], 157.4, cm, 11/05/23 12:44:00 EDT, Height, 93.5, [...] 1 Refills, Maintenance, 04/10/24 12:26:00 PM EST, [facility] #[id number], pls dispense as 90 day supplies, 157.4, [...] 1 Refills, Maintenance, 04/10/24 12:26:00 PM EST, [facility] #[id number], pls dispense as 90 day supplies, 157.4, [...] Team Personnel Name: Huong Johnson MD Position: [facility] Physician - Primary Care Member Role: PCP Address: [address] [place] [address] Adult & Pediatric [place], [place] [address] Telecom: Name: Deann Sethi RN Position: S RN Member Role: Primary Care Nurse Name: Ernestine Norris RN Position: [facility] RN Member Role: Primary Care Nurse Name: Mariela Wild MD Position: [facility] Physician - Endocrinology Member Role: Lifetime Consulting Physician Name: Nahun Garcia RN Position: [facility] RN Member Role: Primary Care Nurse Care Team Related Persons Name: SIOMARA HAYDEN Insurance Providers Guarantor name: PILO HARRISEDO Health Plan Information #: 1 Payer: [employer] Member Number: NA Policy Number: NA Group Number: NA
--- OUTSIDE RECORDS SUMMARY | 2024-04-28 10:36 | XMS_ITS | Clinical Summary ---
Author Organization [facility] Address [address] [place] [address] Phone Care Team Providers Care Shoe Dyer Name Role Phone Huong Johnson MD Primary Care Provider [phone] Allergies Active Allergy Reactions Criticality Noted Date [...] Department Care Team Description 04/05/2024 Lab Requisition [facility] Main Lab [address] [place] [address] Darien Smith MD Anemia, unspecified 03/29/[address] [facility] Lab [address] [place] [phone] Darien Smith MD Anemia, unspecified 03/22/[address] [facility] Lab [address] [place] [phone] Darien Smith MD Anemia, unspecified 03/18/[address] [facility] Lab [address] [place] [phone] Darien Smith MD Anemia, unspecified 03/03/2024 8:51 AM EST - 03/08/2024 6:44 PM EST Hospital Encounter [facility] Intermediate Care Unit [address] [place] [address] Jae Chavarria, Ryan Ag, Azar Arizmendi MD Seralathan, Manikandan, MD Aspiration pneumonia of right middle lobe, unspecified aspiration pneumonia type (CMS/HCC) (Primary Dx); Aspiration pneumonia of right upper lobe, unspecified aspiration pneumonia type (CMS/HCC); Respiratory failure with hypoxia, unspecified chronicity (CMS/HCC) Discharge Disposition: Long-Term Facility 03/01/2024 8:10 AM EST - 03/01/2024 11:59 PM EST Hospital Encounter [facility] PET Scan [address] [place] [phone] 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 For example, child and family services specialist or elderly care for an older [...] Cancer Screening: Pap Smear 12/29/1988 Pneumococcal Vaccine: 50+ Years (2 of 2 - PCV) 11/03/2017 11/03/2016 Pneumococcal Vaccine: Pediatrics (0 to 5 Years) and At-Risk Patients (6 to 64 Years) (2 of 2 - PCV) 11/03/2017 11/03/2016 Zoster Vaccines (2 of 2) 12/05/2019 10/10/2019, 0804/2019 Influenza Vaccine (#1) 2023 2, 12/08/2020, 12/27/2019, Additional history exists Cholesterol Screening [...] patient's age to complete this topic Meningococcal B Vacine Aged Out No lo nger eligible based on patient's [...] ECG 12-LEAD STAT 03/03/2024 9:11 AM EST [facility] CRITICAL [facility] 30-74 MINUTES Routine 03/03/2024 8:47 [...] K/mcL LAB HEMETOLOGY METHOD 03/30/2024 11:54 AM [facility] LAB RBC 3.60(L) 3.80 - 4.80 M/mcL LAB HEMETOLOGY METHOD 03/30/2024 11:54 AM [facility] LAB Hemoglobin 10.2(L) 11.5 - 16.0 g/dL LAB HEMETOLOGY METHOD 03/30/2024 11:54 AM [facility] LAB Hematocrit 33.9(L) 35.0 - 47.0 % LAB HEMETOLOGY METHOD 03/30/2024 11:54 AM [facility] LAB MCV 93.1 79.0 - 98.0 FL LAB HEMETOLOGY METHOD 03/30/2024 11:54 AM [facility] LAB MCH 28.0 27.0 - 32.0 pcg LAB HEMETOLOGY METHOD 03/30/2024 11:54 AM EST [facility] LAB MCHC 30.1(L) 32.0 - 37.0 g/dL LAB HEMETOLOGY METHOD 03/30/2024 11:54 AM [facility] LAB RDW 15.9(H) 11.0 - 15.0 % LAB HEMETOLOGY METHOD 03/30/2024 11:54 AM EST [facility] LAB Platelets 193 130 - 400 K/mcL LAB HEMETOLOGY METHOD 03/30/2024 11:54 AM [facility] LAB MPV 12.1(H) 7.0 - 11.0 FL LAB HEMETOLOGY METHOD 03/30/2024 11:54 AM EST [facility] LAB NRBC 0.0 <1.0 % LAB HEMETOLOGY METHOD 03/30/2024 11:54 AM EST [facility] LAB NRBC Absolute 0.00 <0.10 K/mcL LAB HEMETOLOGY METHOD 03/30/2024 11:54 AM [facility] LAB Blood Venous blood specimen / Unknown Venipuncture / Unknown 03/30/2024 5:10 AM EST 03/30/2024 10:53 AM EST us Darien Smith MD LAB BLOOD ORDERABLES Final Resul t [facility] LAB [address] [place] [address], * (ABNORMAL) Basic metabolic panel (03/30/2024 5:10 AM EST) Only the most recent of7 resultswithin the time period is included. Sodium 143 133 - 145 mmol/L LAB CHEMISTRY METHOD 03/30/2024 11:55 AM EST [facility] LAB Potassium 4.7 3.5 - 5.5 mmol/L LAB CHEMISTRY METHOD 03/30/2024 11:55 AM [facility] LAB Comment:Hemolysis present Chloride 112(H) 96 - 110 mmol/L LAB CHEMISTRY METHOD 03/30/2024 11:55 AM [facility] LAB CO2 26 21 - 32 mmol/L LAB CHEMISTRY METHOD 03/30/2024 11:55 AM [facility] LAB Anion Gap 5 3 - 11 LAB CHEMISTRY METHOD 03/30/2024 11:55 AM [facility] LAB Glucose 70 70 - 100 mg/dL LAB CHEMISTRY METHOD 03/30/2024 11:55 AM [facility] LAB BUN 7 5 - 25 mg/dL LAB CHEMISTRY METHOD 03/30/2024 11:55 AM [facility] LAB Creatinine 0.46(L) 0.50 - 1.10 mg/dL LAB CHEMISTRY METHOD 03/30/2024 11:55 AM [facility] LAB eGFR 112 >=60 mL/min/1. 73m2 LAB CHEMISTRY METHOD 03/30/2024 11:55 AM [facility] LAB Comment:Calculation based on the??Chronic Kidney Disease Epidemiology Collaboration (CKD-EPI) equation refit??without adjustment for race. BUN/Creatinine Ratio 15.2 LAB CHEMISTRY METHOD 03/30/2024 11:55 AM [facility] LAB Calcium 8.7 8.5 - 10.5 mg/dL LAB CHEMISTRY METHOD 03/30/2024 11:55 AM [facility] LAB Blood Venous blood specimen / Unknown Venipuncture / Unknown 03/30/2024 5:10 AM EST 03/30/2024 10:53 AM EST us Darien Smith MD LAB BLOOD ORDERABLES Final Resul t [facility] LAB [address] [place] [address], * (ABNORMAL) Thyroid stimulating hormone (03/18/2024 6:30 AM EST) Only the most recent of2 resultswithin the time period is included. TSH 5.29(H) 0.40 - 4.00 mcIU/mL LAB CHEMISTRY METHOD 03/18/2024 12:02 PM [facility] LAB Blood Venous blood specimen / Unknown Venipuncture / Unknown 03/18/2024 6:30 AM EST 03/18/2024 10:39 AM EST Darien Smith MD LAB BLOOD ORDERABLES Final Resul t Performing Organization Address City/[facility]/ZIP Co de Phone Number [facility] LAB [address] [place] [address], [place] [phone] * Thyroxine free (03/18/2024 6:30 AM EST) Free T4 1.27 0.70 - 1.80 ng/dL LAB CHEMISTRY METHOD 03/18/2024 12:02 PM [facility] LAB Blood Venous blood specimen / Unknown Venipuncture / Unknown 03/18/2024 6:30 AM EST 03/18/2024 10:39 AM EST Darien Smith MD LAB BLOOD ORDERABLES Final Resul t Performing Organization Address City/[facility]/ZIP Co de Phone Number [facility] LAB [address] [place] [address], [place] [phone] * (ABNORMAL) Comprehensive metabolic panel (03/18/2024 6:30 AM EST) Sodium 140 133 - 145 mmol/L LAB CHEMISTRY METHOD 03/18/2024 12:01 PM [facility] LAB Potassium 5.5 3.5 - 5.5 mmol/L [...] PM [facility] LAB AST (SGOT) 22 10 - 42 unit/L LAB CHEMISTRY METHOD 03/18/2024 12:01 [facility] LAB ALT (SGPT) 14 10 - [...] MD LAB BLOOD ORDERABLES Final Resul t [facility] LAB [address] [place] [address], [place] [phone] * (ABNORMAL) CBC auto differential (03/08/2024 9:29 AM EST) Only the most recent of5 resultswithin the time period is included. WBC 18.9(H) 4.8 - 10.8 K/mcL LAB HEMETOLOGY METHOD 03/08/2024 11:21 AM [facility] LAB RBC 3.40(L) 3.80 - 4.80 M/mcL LAB HEMETOLOGY METHOD 03/08/2024 11:21 AM [facility] LAB Hemoglobin 9.9(L) 11.5 - 16.0 g/dL LAB HEMETOLOGY METHOD 03/08/2024 11:21 AM [facility] LAB Hematocrit 30.6(L) 35.0 - 47.0 % LAB HEMETOLOGY METHOD 03/08/2024 11:21 AM [facility] LAB MCV 89.0 79.0 - 98.0 FL LAB HEMETOLOGY METHOD 03/08/2024 11:21 AM [facility] LAB MCH 28.8 27.0 - 32.0 pcg LAB HEMETOLOGY METHOD 03/08/2024 11:21 AM [facility] LAB MCHC 32.4 32.0 - 37.0 g/dL LAB HEMETOLOGY METHOD 03/08/2024 11:21 AM [facility] LAB RDW 14.6 11.0 - 15.0 % LAB HEMETOLOGY METHOD 03/08/2024 11:21 AM [facility] LAB Platelets 255 130 - 400 K/mcL LAB HEMETOLOGY METHOD 03/08/2024 11:21 AM [facility] LAB MPV 12.1(H) 7.0 - 11.0 FL LAB HEMETOLOGY METHOD 03/08/2024 11:21 AM [facility] LAB NRBC 0.2 <1.0 % LAB HEMETOLOGY METHOD 03/08/2024 11:21 AM [facility] LAB NRBC Absolute 0.04 <0.10 K/mcL LAB HEMETOLOGY METHOD 03/08/2024 11:21 AM [facility] LAB Neutrophils Relative 71.9 % LAB HEMETOLOGY METHOD 03/08/2024 11:21 AM [facility] LAB Comment:This is an appended report. These results have been appended to a previously preliminary verified report. Lymphocytes Relative 10.8 % LAB HEMETOLOGY METHOD 03/08/2024 11:21 AM [facility] LAB Comment:This is an appended report. These results have been appended to a previously preliminary verified report. Monocytes Relative 10.4 % LAB HEMETOLOGY METHOD 03/08/2024 11:21 AM [facility] LAB Comment:This is an appended report. These results have been appended to a previously preliminary verified report. Eosinophils Relative 1.5 % LAB HEMETOLOGY METHOD 03/08/2024 11:21 AM [facility] LAB Comment:This is an appended report. These results have been appended to a previously preliminary verified report. Basophils Relative 0.6 % LAB HEMETOLOGY METHOD 03/08/2024 11:21 AM [facility] LAB Comment:This is an appended report. These results have been appended to a previously preliminary verified report. Immature Granulocytes Relative 4.8 % LAB HEMETOLOGY METHOD 03/08/2024 11:21 AM [facility] LAB Comment:This is an appended report. These results have been appended to a previously preliminary verified report. Neutrophils Absolute 13.56(H) 1.50 - 7.00 K/mcL LAB HEMETOLOGY METHOD 03/08/2024 11:21 AM [facility] LAB Comment:This is an appended report. These results have been appended to a previously preliminary verified report. Lymphocytes Absolute 2.03 1.00 - 5.00 K/mcL LAB HEMETOLOGY METHOD 03/08/2024 11:21 AM [facility] LAB Comment:This is an appended report. These results have been appended to a previously preliminary verified report. Monocytes Absolute 1.97(H) 0.20 - 1.00 K/mcL LAB HEMETOLOGY METHOD 03/08/2024 11:21 AM [facility] LAB Comment:This is an appended report. These results have been appended to a previously preliminary verified report. Eosinophils Absolute 0.29 0.00 - 0.50 K/mcL LAB HEMETOLOGY METHOD 03/08/2024 11:21 AM [facility] LAB Comment:This is an appended report. These results have been appended to a previously preliminary verified report. Basophils Absolute 0.11 0.00 - 0.20 K/mcL LAB HEMETOLOGY METHOD 03/08/2024 11:21 AM [facility] LAB Comment:This is an appended report. These results have been appended to a previously preliminary verified report. Immature Granulocytes Absolute 0.90(H) 0.00 - 0.03 K/mcL LAB HEMETOLOGY METHOD 03/08/2024 11:21 AM [facility] LAB Comment:This is an appended report. These results have been appended to a previously preliminary verified report. Blood Venous blood specimen / Unknown Venipuncture / Unknown 03/08/2024 9:29 AM EST 03/08/2024 10:36 AM EST us Catalino Salcedo MD LAB BLOOD ORDERABLES Fi nal Result Performing Organization Address [facility] Co de Phone Number [facility] LAB [address] [place] [address], [place] [phone] * Phosphorus (03/08/2024 9:29 AM EST) Only the most recent of5 resultswithin the time period is included. Phosphorus 2.8 2.5 - 4.5 mg/dL LAB CHEMISTRY METHOD 03/08/2024 11:09 AM EST [facility] LAB Blood Venous blood specimen / Unknown Venipuncture / Unknown 03/08/2024 9:29 AM EST 03/08/2024 10:35 AM EST us Catalino Salcedo MD LAB BLOOD ORDERABLES Fi nal Result Performing Organization Address [facility] de Phone Number [facility] LAB [address] [place] [address], [place] [phone] * Magnesium (03/08/2024 9:29 AM EST) Only the most recent of5 resultswithin the time period is included. Magnesium 2.3 1.9 - 2.6 mg/dL LAB CHEMISTRY METHOD 03/08/2024 11:09 AM EST [facility] LAB Blood Venous blood specimen / Unknown Venipuncture / Unknown 03/08/2024 9:29 AM EST 03/08/2024 10:35 AM EST Catalino Salcedo MD LAB BLOOD ORDERABLES Fi nal Result Performing Organization Address [facility] Co de Phone Number [facility] [address] [place] [address], [place] [phone] * XR Chest 1 View (03/07/2024 8:31 [...] pleural air locule [place] ([id number]) -------- FINAL REPORT -------- Dictated By: Nayla Thibodeaux Dictated Date: 03/07/2024 08:56 ET Assigned Physician: Nayla Thibodeaux Reviewed and Electronically Signed By: Nayla Thibodeaux Signed Date: 03/07/2024 09:04 ET Workstation ID: [id number] Transcribed By: Self Edit Transcribed Date: 03/07/2024 [...] small pleural airlocule at the apex. [place] ([id number]) -------- FINAL REPORT -------- Dictated By: Nayla Thibodeaux Dictated Date: 03/07/2024 08:56 ET Assigned Physician: Nayla Thibodeaux Reviewed and Electronically Signed By: Nayla Thibodeaux Signed Date: 03/07/2024 09:04 ET Workstation ID: [id number] Transcribed By: Self Edit Transcribed Date: 03/07/2024 09:00 ET us Catalino Salcedo MD IMG XR PROCEDURES Final Result * Legionella antigen urine, EIA (03/05/2024 5:27 PM EST) Legionella Antigen, Ur Negative Negative 03/05/2024 6:02 PM EST [facility] Urine Urine specimen obtained by clean catch procedure / Unknown Non-blood Collection / Unknown 03/05/2024 5:27 PM EST 03/05/2024 5:36 PM EST Narrative [facility] - 03/05/2024 6:02 PM EST Negative for Legionella pneumophilia serogroup 1 antigen. This presumptive result suggests no current or recent infection due to L. pneumophilia serogroup 1. Culture is recommended if Legionella infection is till suspected, as other serogroups and species of Legionella are not detected by this test. us Catalino Salcedo MD LAB URINE ORDERABLES Fi nal Result [facility] [address] [place] [address], [place] [phone] * (ABNORMAL) Manual differential (03/05/2024 4:00 AM EST) Only the most recent of2 resultswithin the time period is included. Neutrophils % 78.0 % LAB HEMETOLOGY METHOD 03/05/2024 5:17 AM [facility] Bands % 2.0 % LAB HEMETOLOGY METHOD 03/05/2024 5:17 AM [facility] Lymphocytes % 11.0 % LAB HEMETOLOGY METHOD 03/05/2024 5:17 AM [facility] Monocytes % 10.0 % LAB HEMETOLOGY METHOD 03/05/2024 5:17 AM [facility] Eosinophils % 0.0 % LAB HEMETOLOGY METHOD 03/05/2024 5:17 AM [facility] Basophils % 0.0 % LAB HEMETOLOGY METHOD 03/05/2024 5:17 AM [facility] Neutrophils Absolute Manual 15.52(H) 1.50 - 7.00 K/mcL LAB HEMETOLOGY METHOD 03/05/2024 5:17 AM [facility] Bands Absolute Manual 0.40(H) 0.00 - 0.00 K/mcL LAB HEMETOLOGY METHOD 03/05/2024 5:17 AM [facility] Lymphocytes Absolute 2.19 1.00 - 5.00 K/mcL LAB HEMETOLOGY METHOD 03/05/2024 5:17 AM [facility] Monocytes Absolute Manual 1.99(H) 0.20 - 1.00 K/mcL LAB HEMETOLOGY METHOD 03/05/2024 5:17 AM [facility] Eosinophils Absolute Manual 0.00 0.00 - 0.50 K/mcL LAB HEMETOLOGY METHOD 03/05/2024 5:17 AM [facility] Basophils Absolute Manual 0.00 0.00 - 0.20 K/mcL LAB HEMETOLOGY METHOD 03/05/2024 5:17 AM EST [facility] Rbc Morphology Consistent with indices Consistent with indices, Normal for LAB HEMETOLOGY METHOD 03/05/2024 5:17 AM EST [facility] Platelet Morphology - WAM See Note(A) Normal LAB HEMETOLOGY METHOD 03/05/2024 5:17 AM EST [facility] Comment:PLT: Normal Blood Venous blood specimen / Unknown Venipuncture / Unknown 03/05/2024 4:00 AM EST 03/05/2024 4:37 AM EST us Ryan Turner DO LAB BLOOD ORDERABLES Final R esult [facility] [address] [place] [address], * (ABNORMAL) Procalcitonin (03/05/2024 4:00 AM EST) Only the most recent of3 resultswithin the time period is included. Procalcitonin 16.50(H) <=0.16 ng/mL LAB CHEMISTRY METHOD 03/05/2024 8:23 AM EST [facility] Blood Venous blood specimen / Unknown Venipuncture / Unknown 03/05/2024 4:00 AM EST 03/05/2024 4:37 AM EST Narrative [facility] - 03/05/2024 8:23 AM EST Procalcitonin [...] if any concentrations <2.0 ng/mL are obtained. [facility] [employer] [facility] LAB BLOOD ORDERABLES Final [facility] Performing Organization Address [facility] de Phone Number [facility] [address] [place] [address], [place] [phone] * (ABNORMAL) Calcium, ionized (03/05/2024 4:00 AM EST) Only the most recent of3 resultswithin the time period is included. Calcium Ionized 4.35(L) 4.50 - 5.30 mg/dL 03/05/2024 4:53 AM EST [facility] Blood Venous blood specimen / Unknown Venipuncture / Unknown 03/05/2024 4:00 AM EST 03/05/2024 4:37 AM EST [facility] BLOOD ORDERABLES Final R [facility] Performing Organization Address [facility] de Phone Number [facility] [address] [place] [address], [place] [phone] * Light blue tube (03/04/2024 5:06 AM EST) Extra Tube Hold for add-ons. 03/04/2024 7:01 AM EST [facility] Comment:Auto resulted. Blood Venous blood specimen / Unknown 03/04/2024 5:06 AM EST 03/04/2024 5:53 AM EST [facility] [employer] LAB BLOOD ORDERABLES Final R [facility] [address] [place] [address], * CT Chest/Abdomen/Pelvis wo Contrast (03/03/2024 9:37 [...] Sophy albicans/dubliniens is(A) ANDREEA 03/06/2024 10:54 AM EST [facility] Comment: The organism value for this result has been updated. These results have been appended to the previously preliminary verified report. Edited result: Previously reported as Yeast on 03/06/2024 at 1003 EST. Culture, Sputum Methicillin-Sensiti ve Staphylococcus aureus(A) ANDREEA 03/06/2024 10:54 AM EST [facility] Comment: Negative for PBP2a - indicates susceptible to Oxacillin The organism value for this result has been updated. These results have been appended to the previously preliminary verified report. Edited result: Previously reported as Staphylococcus aureus on 03/05/2024 at 1221 EST. Gram Stain Result Many Polymorphonuclear leukocytes(A) 03/06/2024 10:54 AM EST [facility] Gram Stain Result Moderate Gram positive cocci in pairs(A) 03/06/2024 10:54 AM EST [facility] Gram Stain Result No epithelial cells seen(A) 03/06/2024 10:54 AM EST [facility] Gram Stain Result Greater than 25 WBCS and less than 10 Epithelial cells - Acceptable for Culture(A) 03/06/2024 10:54 AM EST [facility] Coughed sputum specimen (specimen) Non-blood Collection [...] aureus Trimethoprim/Sulfamethoxazo le ANDREEA <=10 ug/ml: Susceptible us Ryan Turner DO LAB MICROBIOLOGY - GENERAL O RDERABLES Final Result [facility] [address] [place] [address], * MRSA molecular study (03/03/2024 5:54 PM EST) [facility] MRSA Screen PCR Not Detected Not Detected LAB MICROBIOLOGY METHOD 03/03/2024 7:36 PM EST [facility] Swab Both anterior nares / Unknown Non-blood Collection / Unknown 03/03/2024 5:54 PM EST 03/03/2024 6:13 PM EST us Ryan Turner DO LAB MICROBIOLOGY - GENERAL O RDERABLES Final Result Performing Organization Address [facility]/ZIP Co de Phone Number [facility] [address] [place] [address], [place] [phone] * Lactate (03/03/2024 3:07 PM EST) Only the most recent of2 resultswithin the time period is included. [facility] Lactate 2.0 0.4 - 2.0 mmol/L LAB CHEMISTRY METHOD 03/03/2024 3:50 PM [facility] Blood Venous blood specimen / Unknown Venipuncture / Unknown 03/03/2024 3:07 PM EST 03/03/2024 3:15 PM EST us Ryan Turner DO LAB BLOOD ORDERABLES Final R esult Performing Organization Address City/[facility]/ZIP Co de Phone Number [facility] [address] [place] [address], [place] [phone] * Respiratory virus panel molecular study (03/03/2024 11:52 AM EST) [facility] Adenovirus Detection by PCR Not Detected Not Detected LAB MICROBIOLOGY METHOD 03/03/2024 12:52 PM EST [facility] Influenza A PCR Not Detected Not Detected LAB MICROBIOLOGY METHOD 03/03/2024 12:52 PM [facility] Influenza B PCR Not Detected Not Detected LAB MICROBIOLOGY METHOD 03/03/2024 12:52 PM EST [facility] Coronavirus 229E Not Detected Not Detected LAB MICROBIOLOGY METHOD 03/03/2024 12:52 PM [facility] Coronavirus HKU1 Not Detected Not Detected LAB MICROBIOLOGY METHOD 03/03/2024 12:52 PM [facility] Coronavirus OC43 Not Detected Not Detected LAB MICROBIOLOGY METHOD 03/03/2024 12:52 PM [facility] Coronavirus NL63 Not Detected Not Detected LAB MICROBIOLOGY METHOD 03/03/2024 12:52 PM [facility] Parainfluenza Virus 1 Not Detected Not Detected LAB MICROBIOLOGY METHOD 03/03/2024 12:52 PM [facility] Parainfluenza Virus 2 Not Detected Not Detected LAB MICROBIOLOGY METHOD 03/03/2024 12:52 PM [facility] Parainfluenza Virus 3 Not Detected Not Detected LAB MICROBIOLOGY METHOD 03/03/2024 12:52 PM [facility] Parainfluenza Virus 4 Not Detected Not Detected LAB MICROBIOLOGY METHOD 03/03/2024 12:52 PM [facility] RSV PCR Not Detected Not Detected LAB MICROBIOLOGY METHOD 03/03/2024 12:52 PM [facility] Human Metapneumovirus A and B Not Detected Not Detected LAB MICROBIOLOGY METHOD 03/03/2024 12:52 PM [facility] Rhinovirus/Entero virus Not Detected Not Detected LAB MICROBIOLOGY METHOD 03/03/2024 12:52 PM [facility] Bordetella pertussis Not Detected Not Detected LAB MICROBIOLOGY METHOD 03/03/2024 12:52 PM [facility] Bordetella parapertussis Not Detected Not Detected LAB MICROBIOLOGY METHOD 03/03/2024 12:52 PM [facility] Mycoplasma pneumo by PCR Not Detected Not Detected LAB MICROBIOLOGY METHOD 03/03/2024 12:52 PM [facility] Chlamydia pneumoniae Not Detected Not Detected LAB MICROBIOLOGY METHOD 03/03/2024 12:52 PM EST [facility] [facility] LAB SARS COV-2 Not Detected Not Detected LAB MICROBIOLOGY METHOD 03/03/2024 12:52 PM EST [facility] Swab Both anterior nares / Unknown Non-blood Collection / Unknown 03/03/2024 11:52 AM EST 03/03/2024 11:55 AM EST Narrative [facility] - 03/03/2024 12:52 PM EST Testing was performed using the Medpre[employer] Respiratory Pathogen PCR Assay. All results must [...] that are below the limit of detection. Pal Ross MD LAB MICROBIOLOGY - [facility] Final Result Performing Organization Address City/[facility] Co de Phone Number [facility] [address] [place] [address], * (ABNORMAL) Troponin I high sensitivity (NOW and then in 1 hour) (03/03/2024 10:27 AM EST) Only the most recent of2 resultswithin the time period is included. High Sensitivity Troponin I 97(H) <=54 ng/L LAB CHEMISTRY METHOD 03/03/2024 11:13 AM EST [facility] Blood Venous blood specimen / Unknown Venipuncture / Unknown 03/03/2024 10:27 AM EST 03/03/2024 10:39 AM EST Narrative [facility] - 03/03/2024 11:13 AM EST High levels of biotin in samples may falsely decrease hsTroponin values. ??Use caution when interpreting hsTroponin results in patients taking biotin who exhibit renal impairment (eGFR <60) or in patients taking more than 20 mg/day of biotin. Pal Ross MD LAB BLOOD ORDERABLES Final Resu lt [facility] [address] [place] [address], * Blood Culture, Peripheral Draw #2 (03/03/2024 9:56 AM EST) Only the most recent of2 resultswithin the time period is included. Culture, Blood No growth at 5 days 03/08/2024 11:01 AM EST [facility] Blood Venous blood specimen / Unknown Venipuncture / Unknown 03/03/2024 9:56 AM EST 03/03/2024 10:27 AM EST Jae Chavarria DO LAB MICROBIOLOGY - GENERAL ORD ERABLES Final Result Performing Organization Address [facility] Co de Phone Number [facility] [address] [place] [address], * APTT (03/03/2024 9:22 AM EST) aPTT 32.4 24.1 - 39.3 sec LAB COAGULATION METHOD 03/03/2024 10:04 AM EST [facility] Blood Venous blood specimen / Unknown Venipuncture / Unknown 03/03/2024 9:22 AM EST 03/03/2024 9:42 AM EST Pal Ross MD LAB BLOOD ORDERABLES Final Resu lt Performing Organization Address City/[facility]/ZIP Co de Phone Number [facility] [address] [place] [address], * Prothrombin time with INR (03/03/2024 9:22 AM EST) Protime 10.6 10.6 - 13.9 sec LAB COAGULATION METHOD 03/03/2024 10:04 AM EST [facility] INR 0.9 LAB COAGULATION METHOD 03/03/2024 10:04 AM EST [facility] Blood Venous blood specimen / Unknown Venipuncture / Unknown 03/03/2024 9:22 AM EST 03/03/2024 9:42 AM EST Pal Jacqueline Ross MD LAB BLOOD ORDERABLES Final Resu lt [facility] [address] [place] [address], [place] [phone] * B-type natriuretic peptide (03/03/2024 9:22 AM EST) BNP 70 <=100 pcg/mL LAB CHEMISTRY METHOD 03/03/2024 10:14 AM [facility] Blood Venous blood specimen / Unknown Venipuncture / Unknown 03/03/2024 9:22 AM EST 03/03/2024 9:42 AM EST Pal Jacqueline Ross MD LAB BLOOD ORDERABLES Final Resu lt [facility] [address] [place] [address], [place] [phone] * (ABNORMAL) Venous blood gas (03/03/2024 9:22 AM EST) pH, Ayden 7.34 7.32 - 7.42 pH 03/03/2024 9:47 AM [facility] pCO2, Ayden 43 41 - 51 mmHg 03/03/2024 9:47 AM [facility] pO2, Ayden 36 25 - 40 mmHg 03/03/2024 9:47 AM [facility] HCO3, Venous 21.9(L) 22.0 - 26.0 mmol/L 03/03/2024 9:47 AM [facility] O2 Sat, Ayden 62.4 % 03/03/2024 9:47 AM [facility] Base Excess, Ayden -2.6(L) -2.0 - 2.0 mmol/L 03/03/2024 9:47 AM EST [facility] Blood Venous blood specimen / Unknown Venipuncture / Unknown 03/03/2024 9:22 AM EST 03/03/2024 9:42 AM EST Pal Jacqueline Ross MD LAB BLOOD ORDERABLES Final Resu lt [facility] [address] [place] [address], [place] [phone] * (ABNORMAL) Hepatic function panel (03/03/2024 9:22 AM EST) Total Protein 6.8 6.0 - 8.0 g/dL LAB CHEMISTRY METHOD 03/03/2024 10:10 AM [facility] Albumin 3.5 3.2 - 5.0 g/dL LAB CHEMISTRY METHOD 03/03/2024 10:10 AM [facility] Total Bilirubin 1.0 0.0 - 1.4 mg/dL LAB CHEMISTRY METHOD 03/03/2024 10:10 AM [facility] Bilirubin, Direct 0.4(H) 0.0 - 0.3 mg/dL LAB CHEMISTRY METHOD 03/03/2024 10:10 AM [facility] Bilirubin, Indirect 0.6 0.0 - 1.1 mg/dL LAB CHEMISTRY METHOD 03/03/2024 10:10 AM [facility] ALT (SGPT) 27 10 - 60 unit/L LAB CHEMISTRY METHOD 03/03/2024 10:10 AM [facility] AST (SGOT) 45(H) 10 - 42 unit/L LAB CHEMISTRY METHOD 03/03/2024 10:10 AM [facility] Alkaline Phosphatase 194(H) 42 - 121 unit/L LAB CHEMISTRY METHOD 03/03/2024 10:10 AM EST [facility] Blood Venous blood specimen / Unknown Venipuncture / Unknown 03/03/2024 9:22 AM EST 03/03/2024 9:42 AM EST Pal Ross MD LAB BLOOD ORDERABLES Final Resu lt Performing Organization Address [facility] Co de Phone Number [facility] [address] [place] [address], [place] [phone] * ECG 12 lead (03/03/2024 9:11 AM EST) Ventricular Rate ECG 119 BPM GEMUSE Atrial Rate 119 BPM GEMUSE P-R Interval 146 ms GEMUSE QRS Duration 104 ms GEMUSE Q-T Interval 338 ms GEMUSE QTc 475 ms GEMUSE P Wave Font[place] 40 degrees GEMUSE R Font[place] -35 degrees GEMUSE T [place] 52 degrees GEMUSE ECG Interpretation Sinus tachycardia Left anterior fascicular block Left ventricular hypertrophy with repolarization abnormality Abnormal ECG No previous ECGs available Confirmed by CECELIA ANDERSON ([id number]) on 03/05/2024 11:01:23 AM GEMUSE 03/03/2024 9:11 AM EST 03/05/2024 11:01 AM EST Jae Chavarria DO ECG ORDERABLES Final Result Performing Organization Address [facility] Co de Phone Number GEMUSE * RI CRITICAL CARE 30-74 MINUTES (03/03/2024 8:47 AM [...] Signed Date: 03/01/2024 13:50 ET Workstation ID: [id number] Transcribed By: Self Edit Transcribed Date: 03/01/2024 [...] FDG activity seen. Mild DJD. Procedure Note Tess, Jordan S, MD - 03/01/2024 EXAMINATION: PET/CT skull to [...] Signed Date: 03/01/2024 13:50 ET Workstation ID: [id number] Transcribed By: Self Edit Transcribed Date: 03/01/2024 13:31 ET Chapin Price MD IM NM PROCEDURES Final Result from Last 3 Months Insurance [facility] Advance Directives Documents on File Type Date Recorded Patient Sales Contractor Expl anation Advance Directives and Living Will 03/13/2024 10:32 AM Advance Directives and Living Will 03/10/2024 11:11 AM Advance Directives and Living Will 03/08/2024 12:16 PM [facility] Proxy * Full Code - Confirmed (Latest Code Status on File) Date Activated Date Inactivated Comments 03/03/2024 9:53 AM 03/08/2024 8:44 PM This code status was ascertained in the following way: Code status discussion: discussion with patient To update the patient's code status, place a code status order. Do not modify or discontinue any currently active code status orders. Care Teams Shoe Dyer Relationship Specialty Start Date End Date Huong Johnson MD [address] [place] [id number] PCP - General Internal Medicine 03/03/24
== END 2024-04-28 10:47 | disposition home or self-care (01) ==
PROVIDERS: PCP Internal Medicine; Visit Provider Nurse Practitioner Family
DX: I25.119 Atherosclerotic heart disease of native coronary artery with unspecified angina pectoris (principal); Z98.890 Other specified postprocedural states; Z95.5 Presence of coronary angioplasty implant and graft; I35.0 Nonrheumatic aortic (valve) stenosis; I34.2 Nonrheumatic mitral (valve) stenosis; I51.9 Heart disease, unspecified; I31.9 Disease of pericardium, unspecified; E78.5 Hyperlipidemia, unspecified; R79.89 Other specified abnormal findings of blood chemistry; Z01.810 Encounter for preprocedural cardiovascular examination
CPT/HCPCS: 93010; 99214

== ENCOUNTER → 2024-04-28 09:47 | Outpatient (BNVA) | payer BC, SELFPAY ==
[2023-07-28 10:56] VITALS: BP 100/50; BP 114/58; BP 156/54; BMI 40.1
== END ==
PROVIDERS: PCP Internal Medicine; Visit Provider Nurse Practitioner Family
DX: Z01.810 Encounter for preprocedural cardiovascular examination (principal); I25.119 Atherosclerotic heart disease of native coronary artery with unspecified angina pectoris; I35.0 Nonrheumatic aortic (valve) stenosis; I34.2 Nonrheumatic mitral (valve) stenosis; I51.9 Heart disease, unspecified; I31.9 Disease of pericardium, unspecified; E78.5 Hyperlipidemia, unspecified; R94.6 Abnormal results of thyroid function studies; Z95.5 Presence of coronary angioplasty implant and graft; Z79.82 Long term (current) use of aspirin; Z79.899 Other long term (current) drug therapy
CPT/HCPCS: 93005

== ENCOUNTER 2024-07-01 13:51 | Outpatient (AMB) | payer BC, SELFPAY ==
[2023-07-28 10:56] VITALS: BP 100/50; BP 114/58; BP 156/54; BMI 40.1
--- NOTE | 2024-07-01 14:17 | MHC.OFFVISWM ---
VS Expanded 07/01/24 14:21 BP 146/67 H Blood Pressure Location Rt brachial Blood Pressure Position Sitting Pulse 93 Pulse Source Pulse Oximeter Temp 97.7 F Temperature Source Temporal Artery Scan Height 5 ft 2 in Weight 232 lb BMI 42.4 Body Fat % 46.5 Body Fat Mass 107.8 Fat Free Mass 124.2 Visceral Fat Rating 15 Body Water % 38 Body Water Mass 88.2 Muscle Mass/Score 118 Basal Metabolic Rate/Score 1,744 Intake Visit Reasons: (OV) PO LSG 01/05/18 *GLP-1* Tassel Clipper Required: No Allergies oxycodone [From PERCOCET] Allergy (Intermediate, Verified 07/01/24 14:25) HIVES Sulfa (Sulfonamide Antibiotics) [SULFA (SULFONAMIDE ANTIBIOTICS)] Allergy (Intermediate, Verified 07/01/24 14:25) HIVES diatrizoate meglumine [Gastrografin] Allergy (Unknown, Verified 07/01/24 14:25) red rash Medication List - Last Reconciled 07/01/24 by RAINA Brown albuterol sulfate 90 mcg/actuation 2 puffs inhalation DAILY PRN aspirin (Ecotrin Low Strength) 81 mg PO DAILY atorvastatin 40 mg PO DAILY 90 days cane As directed cholecalciferol (vitamin D3) 50 mcg PO DAILY nlmnorwfplr-xitpcjhdr-jopxigfz 100-62.5-25 mcg (Trelegy Ellipta) 1 inh inhalation DAILY 90 days ipratropium-albuterol 0.5 mg-3 mg(2.5 mg base)/3 mL 3 mL inhalation Q6-8H PRN levothyroxine (Levoxyl) 125 mcg PO DAILY lidocaine 5% 1 patch topical DAILY lorazepam 0.5 mg PO BID PRN meclizine 12.5 mg PO DAILY PRN mesalamine ER 1.5 grams (4 x 0.375 gram) PO DAILY morphine 15 mg PO BID PRN nortriptyline 10 mg PO BEDTIME pantoprazole 40 mg PO DAILY pregabalin 100 mg PO QID sertraline 150 mg PO DAILY ubrogepant (Ubrelvy) 50 mg PO DAILY PRN ursodiol 500 mg PO BID walker (Ultra-Light Rollator misc) As directed HPI Comments Details: Patient is a 58-year-old female who returns to the office today in follow-up. She is approximately 6 year six-month post sleeve gastrectomy performed 01/05/2018. She has not been seen in the office in greater than 4 years. Weight today is 232 lb with a BMI of 42.5. She was seen in follow-up for approximately a year. Her lowest weight was 195 lb. She felt as though she had too many doctors and chose not to continue follow-up as she felt that she had been doing well. Unfortunately, after that, her health declined. She developed fluid within the left lung requiring pleurodesis and ultimately wedge resection for possible left lung nodules. This relates back to radiation treatment she sustained secondary to Hodgkin's lymphoma when she was in her 20s. She had follow-up PET scan in February 2024 and then developed multifocal pneumonia requiring a proximally 2 week hospitalization. She was ultimately discharged to rehab for approximately a month, going home in April or May 2024 without the need for home O2. She had follow-up cardiac ultrasound recently revealing worsening aortic stenosis to now moderate to severe. She also has moderate mitral valve stenosis. Meal plan: Bolthouse protein shake or Premier protein shake, 30 gm skip lunch dinner: chicken or other protein, white rice, or garlic noodle jon and mallory, skittles, chocolate bar, chips Exercise: 3 lb weights at home. [facility] Medical History History of mantle field radiation therapy (~1992) Environmental allergies History of shingles CAD (coronary artery disease) Stented coronary artery (~2022) Hyperlipidemia Obesity Mitral stenosis Anxiety and depression Tubular adenoma of colon History of Hodgkin's lymphoma (~1992) Radiation-induced heart disease Aortic stenosis Asthma Hypothyroid Hepatic steatosis GERD (gastroesophageal reflux disease) Herpes Surgical History History of lung surgery History of lymph node excision (03/12/23) History of lung biopsy (02/11/23) History of repair of hiatal hernia (~2017) History of thoracentesis (~2018) History of ankle surgery History of section History of colonoscopy History of heart artery stent (~2022) History of arthroscopy of right shoulder History of sleeve gastrectomy (~2017) History of esophagogastroduodenoscopy (EGD) History of cholecystectomy Family History Mother Colon cancer Father Hypertension Prostate cancer Son Diabetes Daughter Autism Social History Household Members: Spouse and Family Housing: House Are you a primary career professional to a significant other at home: No Do you presently have visiting nurse or other home services: No Alcohol intake: current Alcohol intake frequency: holidays/special occasions only Patient Tobacco Use Status: Never used Tobacco e-Cigarette/Vaping Use: Never Used Substance Use Type: Marijuana service: No 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: employed 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 Const General: cooperative and no acute distress Orientation/consciousness: patient oriented x3 Resp Effort & Inspection: normal respiratory effort Auscultation: clear to auscultation bilaterally (Right) and vesicular breath sounds (Left) Cardio Rate: regular rate Rhythm: regular rhythm Heart sounds: Murmur heart sound present GI Inspection: Yes normal to inspection and Yes incision (well healed) Palpation (GI): Soft to palpation and no masses Neuro General: patient oriented x3 Assessment & Plan Assessment & Plan (1) S/P laparoscopic sleeve gastrectomy: Code(s): Z98.84 - Bariatric surgery status Category: Surgical Plan: Patient with multiple comorbidities and risk factors for GLP 1 medications. She was given information regarding right BMI dipak. she was encouraged to follow this and we will follow her clinically. She was encouraged to return to the office in approximately 1 month. She does not wish to start GLP 1 medications today at this time, but rather we certainly can add them in the future based on risks benefit analysis. She has not followed any specific meal plan or exercise plan. Given her significant pulmonary compromise over the past several years, she will begin exercising very slowly as she is able. She was given information and paperwork for discount to join the [employer]. She is going to initiate water aerobics with her sister. We will check labs at her next appointment.
[2024-07-01 14:21] VITALS: BP 146/67; PULSE 93; TEMP 36.5; BMI 42.4
--- OUTSIDE RECORDS SUMMARY | 2024-07-01 14:35 | XMS_ITS | Encounter Summary ---
Author Organization [facility] Address [address] [place] [address] Care Team Providers Care Rear Load Truck Driver Name Role Phone Huong Johnson MD Primary Care Provider [phone] Encounter Details Date Type Department Care Team (Late st Contact Info) Description 04/05/[address] [facility] - Main Lab [address] [facility] [place] [address] Darien Smith MD [address] [place] [address] [address], [phone] Anemia, unspecified Social History Tobacco Use [...] your loved ones. For example, child and adolescent therapist or elderly care for an older adult? [...] unspecified documented in this encounter Care Teams Rear Load Truck Driver Relationship Specialty Start Date End Date Huong Johnson MD [address] [place] [address] PCP - General Internal Medicine 03/03/24 documented as of this encounter
--- OUTSIDE RECORDS SUMMARY | 2024-07-01 14:35 | XMS_ITS | Encounter Summary ---
Author Organization [facility] Address [address] [place] [address] Care Team Providers Care Materials Buyer Name Role Phone Huong Johnson MD Primary Care Provider [phone] Encounter Details Date Type Department Care Team (Late st Contact Info) Description 03/22/2024 Lab Requisition [facility] - Main Lab [address] [facility] [place] [address] Darien Smith MD [address] [place] [address] [address] [place], [phone] Anemia, unspecified Social History Tobacco Use [...] your loved ones. For example, child care nurse or elderly care for an older [...] mmol/L LAB CHEMISTRY METHOD 03/23/2024 10:[address] [facility] Potassium 4.7 3.5 - 5.5 mmol/L LAB CHEMISTRY METHOD 03/23/2024 10:[address] [facility] Chloride 109 96 - 110 mmol/L LAB CHEMISTRY METHOD 03/23/2024 10:[address] [facility] CO2 28 21 - 32 mmol/L LAB CHEMISTRY METHOD 03/23/2024 10:[address] [facility] Anion Gap 4 3 - 11 LAB CHEMISTRY METHOD 03/23/2024 10:[address] [facility] Glucose 86 70 - 100 mg/dL LAB CHEMISTRY METHOD 03/23/2024 10:[address] [facility] BUN 6 5 - 25 mg/dL LAB CHEMISTRY METHOD 03/23/2024 10:[address] [facility] Creatinine 0.66 0.50 - 1.10 mg/dL LAB CHEMISTRY METHOD 03/23/2024 10:[address] [facility] eGFR 103 >=60 mL/min/1. 73m2 LAB CHEMISTRY METHOD 03/23/2024 10:[address] [facility] Comment:Calculation based on the??Chronic Kidney Disease Epidemiology Collaboration (CKD-EPI) equation refit??without adjustment for race. BUN/Creatinine Ratio 9.1 LAB CHEMISTRY METHOD 03/23/2024 10:[address] [facility] Calcium 8.7 8.5 - 10.5 mg/dL LAB CHEMISTRY METHOD 03/23/2024 10:[address] [facility] Blood Venous blood specimen / Unknown Venipuncture / Unknown 03/23/2024 4:56 AM EST 03/23/2024 8:44 AM EST us Darien Smith MD LAB BLOOD ORDERABLES Final Resul t [facility] [address] [place] [address], * (ABNORMAL) Complete blood count (03/23/2024 4:56 AM EST) [facility] WBC 8.2 4.8 - 10.8 K/mcL LAB HEMETOLOGY METHOD 03/23/2024 9:[address] [facility] RBC 3.50(L) 3.80 - 4.80 M/mcL LAB HEMETOLOGY METHOD 03/23/2024 9:[address] [facility] Hemoglobin 10.0(L) 11.5 - 16.0 g/dL LAB HEMETOLOGY METHOD 03/23/2024 9:[address] [facility] Hematocrit 32.2(L) 35.0 - 47.0 % LAB HEMETOLOGY METHOD 03/23/2024 9:[address] [facility] MCV 91.0 79.0 - 98.0 FL LAB HEMETOLOGY METHOD 03/23/2024 9:[address] [facility] MCH 28.2 27.0 - 32.0 pcg LAB HEMETOLOGY METHOD 03/23/2024 9:[address] [facility] MCHC 31.1(L) 32.0 - 37.0 g/dL LAB HEMETOLOGY METHOD 03/23/2024 9:[address] [facility] RDW 15.5(H) 11.0 - 15.0 % LAB HEMETOLOGY METHOD 03/23/2024 9:[address] [facility] Platelets 480(H) 130 - 400 K/mcL LAB HEMETOLOGY METHOD 03/23/2024 9:[address] [facility] MPV 11.4(H) 7.0 - 11.0 FL LAB HEMETOLOGY METHOD 03/23/2024 9:[address] [facility] NRBC 0.0 <1.0 % LAB HEMETOLOGY METHOD 03/23/2024 9:56 AM EST [facility] NRBC Absolute 0.00 <0.10 K/mcL LAB HEMETOLOGY METHOD 03/23/2024 9:56 AM EST [facility] Blood Venous blood specimen / Unknown Venipuncture / Unknown 03/23/2024 4:56 AM EST 03/23/2024 8:44 AM EST us Darien Smith MD LAB BLOOD ORDERABLES Final Resul t [facility] [address] [place] [address], documented in this encounter Visit Diagnoses Diagnosis Anemia, unspecified documented in this encounter Care Teams Materials Buyer Relationship Specialty Start Date End Date Huong Johnson MD [address] [place] [address] PCP - General Internal Medicine 03/03/24 documented as of this encounter
--- OUTSIDE RECORDS SUMMARY | 2024-07-01 14:35 | XMS_ITS | Encounter Summary ---
Author Organization [facility] Address [address] [place] [address] Care Team Providers Care Glass Technician/Installer Name Role Phone Huong Johnson MD Primary Care Provider [phone] Encounter Details Date Type Department Care Team (Late st Contact Info) Description 03/29/2024 Lab Requisition [facility] - Main Lab [address] [facility] [place] [address] Darien Smith MD [address] [place] [address] [address] [place], [phone] Anemia, unspecified Social History Tobacco Use [...] your loved ones. For example, child care director or elderly care for an older adult? [...] mmol/L LAB CHEMISTRY METHOD 03/30/2024 11:55 AM [facility] Potassium 4.7 3.5 - 5.5 mmol/L LAB CHEMISTRY METHOD 03/30/2024 11:55 AM [facility] Comment:Hemolysis present Chloride 112(H) 96 - 110 mmol/L LAB CHEMISTRY METHOD 03/30/2024 11:55 AM [facility] CO2 26 21 - 32 mmol/L LAB CHEMISTRY METHOD 03/30/2024 11:55 AM [facility] Anion Gap 5 3 - 11 LAB CHEMISTRY METHOD 03/30/2024 11:55 AM [facility] Glucose 70 70 - 100 mg/dL LAB CHEMISTRY METHOD 03/30/2024 11:55 AM [facility] BUN 7 5 - 25 mg/dL LAB CHEMISTRY METHOD 03/30/2024 11:55 AM [facility] Creatinine 0.46(L) 0.50 - 1.10 mg/dL LAB CHEMISTRY METHOD 03/30/2024 11:55 AM [facility] eGFR 112 >=60 mL/min/1. 73m2 LAB CHEMISTRY METHOD 03/30/2024 11:55 AM [facility] Comment:Calculation based on the??Chronic Kidney Disease Epidemiology Collaboration (CKD-EPI) equation refit??without adjustment for race. BUN/Creatinine Ratio 15.2 LAB CHEMISTRY METHOD 03/30/2024 11:55 AM [facility] Calcium 8.7 8.5 - 10.5 mg/dL LAB CHEMISTRY METHOD 03/30/2024 11:55 AM [facility] Blood Venous blood specimen / Unknown Venipuncture / Unknown 03/30/2024 5:10 AM EST 03/30/2024 10:53 AM EST us Darien Smith MD LAB BLOOD ORDERABLES Final Resul t [facility] [address] [place] [address], * (ABNORMAL) Complete blood count (03/30/2024 5:10 AM EST) [facility] Signature WBC 6.8 4.8 - 10.8 K/mcL LAB HEMETOLOGY METHOD 03/30/2024 11:54 AM EST [facility] RBC 3.60(L) 3.80 - 4.80 M/mcL LAB HEMETOLOGY METHOD 03/30/2024 11:54 AM [facility] Hemoglobin 10.2(L) 11.5 - 16.0 g/dL LAB HEMETOLOGY METHOD 03/30/2024 11:54 AM [facility] Hematocrit 33.9(L) 35.0 - 47.0 % LAB HEMETOLOGY METHOD 03/30/2024 11:54 AM [facility] MCV 93.1 79.0 - 98.0 FL LAB HEMETOLOGY METHOD 03/30/2024 11:54 AM [facility] MCH 28.0 27.0 - 32.0 pcg LAB HEMETOLOGY METHOD 03/30/2024 11:54 AM [facility] MCHC 30.1(L) 32.0 - 37.0 g/dL LAB HEMETOLOGY METHOD 03/30/2024 11:54 AM [facility] RDW 15.9(H) 11.0 - 15.0 % LAB HEMETOLOGY METHOD 03/30/2024 11:54 AM [facility] Platelets 193 130 - 400 K/mcL LAB HEMETOLOGY METHOD 03/30/2024 11:54 AM [facility] MPV 12.1(H) 7.0 - 11.0 FL LAB HEMETOLOGY METHOD 03/30/2024 11:54 AM EST [facility] NRBC 0.0 <1.0 % LAB HEMETOLOGY METHOD 03/30/2024 11:54 AM EST [facility] NRBC Absolute 0.00 <0.10 K/mcL LAB HEMETOLOGY METHOD 03/30/2024 11:54 AM EST [facility] Blood Venous blood specimen / Unknown Venipuncture / Unknown 03/30/2024 5:10 AM EST 03/30/2024 10:53 AM EST us Darien Smith MD LAB BLOOD ORDERABLES Final Resul t [facility] [address] [place] [address], documented in this encounter Visit Diagnoses Diagnosis Anemia, unspecified documented in this encounter Care Teams Glass Technician/Installer Relationship Specialty Start Date End Date Huong Johnson MD [address] [place] [address] PCP - General Internal Medicine 03/03/24 documented as of this encounter
--- OUTSIDE RECORDS SUMMARY | 2024-07-01 14:36 | XMS_ITS | Patient Health Record ---
Author Organization [facility] Address [address] [place] [address] Care Team Providers Care Heating Repair Technician Name Role Phone ADRIAN CORDERO Primary Care Provider Tessa Lemus Unavailable [phone] Allergies Allergen (clinical drug ingredient) Drug/Non Drug [...] 5.0 PROTEIN NEG GLUCOSE MOD BLOOD NEG Reason For Referral No Information Medications Medication SIG (Take, Route, Frequency, Duration) Notes Start Date End Date Status Nortriptyline HCl 10 MG Oral for 30 Active Apriso 0.375 GM Oral for 30 Ac tive Multivitamins 1 ORAL daily for -3 06/13/2013 Active Calcium 1 tab Oral Active Vitamin D 50 MCG (1999) 1 tablet Orally Once a day for [...] W/U Status Risk Notes Problem Non-Hodgkin lymphoma (574065381) Non-Hodgkin lymphoma, unspecified, unspecified site (C85.90) Active confirmed Problem Morbid obesity (disorder) (417272740) Morbid (severe) obesity due to excess calories (E66.01) Active confirmed Problem Cardiomyopathy associated with another disorder (057700516) 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 Problem Disorder of breast (86541783) Disorder of breast, unspecified (N64.9) Active confirmed Problem Unspecified menopausal and perimenopausal disorder (N95.9) Active confirmed Problem Mammography (52869142) Inconclusive mammogram (R92.2) Active confirmed Problem Replacement of contraceptive intrauterine device (51977865) Encounter for removal and reinsertion of intrauterine contraceptive device (Z30.433) Active confirmed Problem History of Hodgkin lymphoma (445304911) Personal history of Hodgkin lymphoma (Z85.71) Active confirmed Problem History of non-Hodgkins lymphoma (217909844) Personal history of non-Hodgkin lymphomas (Z85.72) Active confirmed Problem Menopause (028555156) Menopausal and female climacteric states (N95.1) Active confirmed Problem Hypothyroidism (78750303) Unspecified hypothyroidism (244.9) Active confirmed Major Problem Pure hypercholesterolemia (238084430) Pure hypercholesterolemia (272.0) Active confirmed Major Problem Hyperlipidemia (86396449) Other and unspecified hyperlipidemia (272.4) Active confirmed Major Problem Obesity (305908209) Obesity, uns pecified (278.00) Active confirmed Diag Problem Depressive disorder (01616664) Depressive disorder, not elsewhere classified (311) Active confirmed Major Problem Benign essential hypertension (1481781) Essential hypertension, benign (401.1) Active confirmed Major Problem Essential hypertension (19539551) Unspecified essential hypertension (401.9) Active confirmed Major Problem Acute sinusitis (44894551) Acute sinusitis, unspecified (461.9) Active confirmed Diag Problem Vulvovaginitis (disorder) (37261683) Unspecified vaginitis and vulvovaginitis (616.10) Active confirmed Diag Problem Asthma (disorder) (987506955) Asthma, unspecified, unspecified status (493.90) Active confirmed Major Problem Esophageal reflux (027856204) Esophageal reflux (530.81) Active confirmed Major Problem Osteoarthritis (594468051) Osteoarthrosis, unspecified whether generalized or localized, unspecified site (715.90) Active confirmed Major Problem Joint pain (33899477) Pain in lelia int, site unspecified (719.40) Active confirmed Diag Problem Sleep apnea (40300304) Unspecified sleep apnea (780.57) Active confirmed Diag Problem Shortness of breath (474435791) Shortness of breath (786.05) Active confirmed Diag Problem Gynecological examination normal (785766283414230) Routine gynecological examination (V72.31) Active confirmed Major Vital Signs Temperature 97.8 degrees Fahrenheit 02/22/2024 Blood pressure diastolic 70 mm Hg 02/22/2024 Height 63 in 02/22/2024 Blood pressure systolic 108 mm Hg 02/22/2024 Weight 231 lbs 02/22/2024 BMI 40.92 kg/m2 02/22/2024 Encounters Encounter Location Date Provider Diagnosis [facility] [address] [address] 02/22/2024 Tessa Dawson Encounter for gynecological examination (general) (routine) without abnormal findings Z01.419 ; Encounter for screening mammogram for malignant neoplasm of breast Z12.31 ; Personal history of Hodgkin lymphoma Z85.71 ; Cardiomyopathy due to drug and external agent I42.7 and Dense breasts, unspecified R92.30 [address] [address] 02/23/2024 Tessa Dawson Glycosuria R81 Assessments Encounter Date Diagnosis (ICD Code) Assessment Notes Treatment Notes Treatment Clinical Notes Section Notes 02/22/2024 Encounter for gynecological examination (general) (routine) without abnormal findings (ICD-10 - Z01.419) NO PAP TEST, DUE IN 2025. 02/23/2024 Glycosuria (ICD-10 - R81) 02/22/2024 Encounter for screening mammogram for malignant neoplasm of breast (ICD-10 - Z12.31) REGULAR MAMMOGRAMS AND SBE'S WERE RECOMMENDED. 02/22/2024 Personal history of Hodgkin lymphoma (ICD-10 - Z85.71) PAT HAS HAD RADIATION TREATMENTS, WITH POSSIBLE RECURRENCE ON HER LUNG. REFERRED PAT TO [facility] FOR FURTHER EVALUATION AND MX. 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 ADVISED PAT TO SEED TX AT [facility]. THEY HAVE AN ONCOLOGY-CARDIOLOG Y [...] PELVIC ULTRASOUND W/TRANSVAGINAL 022 CBC, Platelet, No Differential-[id number] Hgb A1c with eAG Estimation-[id number] 02/22 Lipid Panel-[id number] 02/23/2024 Comp. Metabolic Panel [id number] 2023 Next Appt Details Provider Name:Tessa moise, 02/27/2025 01:00:00 PM, [address], [place], [address], Insurance Providers Payer Name Payer Address Payer Phone Subscriber Number Group Number Insured Name Patient Relationship to Insured Coverage Start Date Coverage End Date BCBS OF [facility] [address] [place] [address] [phone] [id number] PILO HAYDEN Self - patient is the [...] 05/2018 Haert Stent, 2 biopsies-Lung Pleura 08/26 22 LUNG BIOPSY, 03/2023 Hospitalization History Reason Date(Month/Year) See Surgical Hx
--- OUTSIDE RECORDS SUMMARY | 2024-07-01 14:36 | XMS_ITS ---
Author Organization [facility] Address [address] [address] Care Team Providers Care Pet Groomer Name Role Phone ADRIAN CORDERO Primary Care Provider Tessa Lemus [phone] Medications Medication SIG (Take, Route, Frequency, Duration) Notes Start Date End Date Status Cipro 500 MG 1 tablet Orally Twice a day for 7 days 06/12/2023 Active Encounters Encounter Location Date Provider Diagnosis [facility] [address] [address] 06/12/2023 Tessa Dawson Plan Of Treatment Medication Medication Name Sig Start Date Stop Date Notes Cipro 500 MG 1 tablet Orally Twice a day for 7 days 2023 Next Appt Details Provider Name:Tessa moise, 02/27/2025 01:00:00 PM, [address] [place] [address], [address], [place], [address], Progress Notes * ASHLEY HAYDENOB:[birth year] (57 yo F)Acc No.[id number]:06/12/2023 Patient:?PILO HAYDEN :1965???Age:57 Y???Sex:Female Address:[address] [place] [address], [address] * Refills? Start Cipro Tablet, 500 MG, Orally, 14 Tablet, 1 tablet, Twice a day, 7 days, Refills=0 * true * Date:? Generated for Printi lisa/Fachristineg/eTransmitting on:?07/01/2024 02:35 PM EDT
--- OUTSIDE RECORDS SUMMARY | 2024-07-01 14:36 | XMS_ITS | Clinical Summary ---
Author Organization [facility] Address [address] [place] [address] Phone Care Team Providers Care White Work Cleaner Name Role Phone Huong Johnson MD Primary Care Provider [phone] Allergies Active Allergy Reactions Criticality Noted Date [...] Active Problems Problem Noted Date Diagnosed Date Pulmonary nodule 05/12/2024 Assessment & Plan (05/12/2024 3:50 PM EST): 58-year-old woman with history of recurrent pleural effusions treated with pleurodesis on the left and subsequent pulmonary nodule in the left upper lobe that had been extensively worked up all negative for cancer including a left thoracotomy [place]. I had a long discussion with her and her going over her past medical history since I had seen her since 2019. She also had a recent admission for possible aspiration pneumonia on the right side with a convoluted course which she is still somewhat recovering from. Given all of this, and the presence of a possibly PET avid area in the left chest we will just plan on repeating her CT scan 3 months from her most recent which will be in early June of this year. She should follow-up with me in the office after that. All questions were answered. Recurrent pleural effusion on left 05/12/2024 Coronary artery disease 05/12/2024 Aspiration pneumonia of righ t middle lobe, unspecified aspiration pneumonia type (CMS/HCC V24, CMS/HCC V28) 03/03/2024 Encounters Date Type Department Care Team Description 06/16/2024 2:00 PM EDT Office Visit Thoracic Surgery - [address] [phone] Simone Harris MD Pulmonary nodule (Primary Dx); Aspiration pneumonia of right middle lobe, unspecified aspiration pneumonia type (CMS/HCC V24, CMS/HCC V28) 06/08/2024 3:00 PM EDT - 06/08/2024 11:59 PM EDT Hospital Encounter [facility] CT Scan [address] [place] [phone] Pulmonary nodule; Aspiration pneumonia of right middle lobe, unspecified aspiration pneumonia type (CMS/HCC V24, CMS/HCC V28) Discharge Disposition: Home or Self Care 05/12/2024 2:00 PM EST Consult Thoracic Surgery - [place] [address] [phone] Simone Harris MD Pulmonary nodule (Primary Dx); Aspiration pneumonia of right middle lobe, unspecified aspiration pneumonia type (CMS/HCC V24, CMS/HCC V28); Recurrent pleural effusion on left 04/05/2024 Lab Requisition [facility] - Main Lab [address] [facility] [place] [address] Darien Smith MD Anemia, unspecified from Last 3 Months Medical History Medical History Date Comments Hodgkin's lymphoma (CMS/HCC V24, CMS/HCC V28) with radiation GERD (gastroesophageal reflux disease) History of heart artery stent Radiation induced cardiomyopathy (CMS/HCC V24) Depression H/O gastric sleeve Delivery by emergency [...] your loved ones. For example, child support agent or elderly care for an older adult? [...] Sign Reading Time Taken Comments Blood Pressure 147/72 06/16/2024 2:06 PM EDT Pulse 103 06/16/2024 2:06 PM EDT Temperature 36.2 ??C (97.2 ??F) 06/16/2024 2:06 PM ED T Respiratory Rate 17 06/16/2024 2:06 PM EDT Oxygen Saturation 97% 06/16/2024 2:06 PM EDT Inhaled Oxygen Concentration - - Weight 108 kg (237 lb 14.4 oz) 06/16/2024 2:06 P M EDT Height 157.5 cm (5' 2 ) 06/16/2024 2:06 PM EDT Body Mass Index 43.51 06/16/2024 2:06 PM EDT Plan of Treatment Health Maintenance Due Date [...] Vaccines (2 of 2) 12/05/2019 10/10/2019, 0804/2019 Cholesterol Screening (Lipid Panel) 02/29/2024 Colorectal Cancer Screening: Colonoscopy 02/29/2024 Depression Screening 02/29/2024 HIV Screening 02/29/2024 Hepatitis C Screening 02/29/2024 COVID-19 Vaccine (7 - Pfizer risk season) 2024 12/26/2023, 03/07/2022, 09/08/2021, Additional history exists Social Influencers of Health Screening 03/03/2025 03/03/2024 Hypertension/CHF/CAD Annual BMP Blood Test 03/30/2025 03/30/2024, 03/23/2024, 03/18/2024, Additional history exists DTaP,Tdap,and Td Vaccines (3 - Td or Tdap) 02/16/2033 02/16/2023, 03/01/2012 MMR Vaccines Aged Out 01/05/2017, 09/30/2016 No lo nger eligible based on patient's age to complete this topic Influenza Vaccine Completed 12/26/2023, , 12/08/2020, Additional history exists HIB Vaccines Aged Out [...] age to complete this topic Meningococcal B Vaccine Aged Out No l onger eligible based on patient's age to complete this topic RSV Immunization Patients Under 20 months Aged Out No longer eligible based on patient's age to complete this topic Varicella Vaccines Aged Out No longer eligible based on patient's age to complete this topic Procedures Procedure Name Priority Date/Time Associated Diagnosis Comments CT CHEST WO CONTRAST Routine 06/08/2024 3:14 PM EDT Pulmonary nodule Aspiration pneumonia of right middle lobe, unspecified aspiration pneumonia type (CMS/HCC V24, CMS/HCC V28) BASIC METABOLIC PANEL Routine 03/30/2024 5:10 AM EST Anemia, unspecified from Last 3 Months or Most Recently Relevant to Health Maintenance Results * CT Chest wo Contrast (06/08/2024 3:14 PM EDT) Anatomical Region Laterality Modality Body Computed Tomogra phy 06/10/2024 4:50 PM EDT Impressions 06/10/2024 5:17 PM EDT Marked interval improvement. Resolution of previous pneumonia. Volume loss with gas collection in the left apex similar to January 2024. Nodular high density areas of left pleural thickening could reflect previous pleurodesis. No suspicious mass has developed. Left chest wall deformities consistent with previous surgery. ?? Dr. Harris will determine subsequent management -------- FINAL REPORT -------- Dictated By: Geovanny Ibanez Dictated Date: 06/10/2024 16:50 ET Assigned Physician: Geovanny Ibanez Reviewed and Electronically Signed By: Geovanny Ibanez Signed Date: 06/10/2024 17:17 ET Workstation ID: [id number] Transcribed By: Self Edit Transcribed Date: 06/10/2024 16:50 ET Narrative 06/10/2024 5:17 PM EDT EXAMINATION: CT CHEST WITHOUT CONTRAST CLINICAL INFORMATION: Pulmonary nodule. ??Aspiration pneumonia of right middle lobe. COMPARISON: Portions of previous 03/03/24, 01/19/24 ?? TECHNIQUE: Multidetector CT. Examination of the chest. Examination of the chest without IV contrast. Reformatting in the coronal and sagittal planes. DLP: 148 mGy-cm Dose optimization was performed including the use of low-dose iterative reconstruction technique with automatic exposure control based on patient size. Type of contrast: None Volume of IV contrast: None Volume of contrast discarded: 0 mL FINDINGS: LUNG: Overall aeration markedly improved when compared to 03/03/24. The trachea and central airways are patent. There is volume loss in the upper lobes with some reticular opacities. This could reflect remote radiation change. This appears similar to 01/19/24. There is a gas collection in the extreme left apex with surrounding pleural reaction. There is no fluid level. No suspicious interval change. ?? No new suspicious mass or nodule. MEDIASTINUM: ??Unchanged amorphous densities in the anterior mediastinum could reflect sequelae from remote treatment. No measurably enlarged lymph nodes. CARDIAC: Coronary stents. Calcification in the region of the mitral annulus and region of the ascending aorta/aortic valve. ?? CORONARY CALCIFICATION: ??Coronary stents. VASCULAR: There is no thoracic aortic aneurysm. The main pulmonary artery is normal caliber ?? PLEURA: There is no drainable pleural fluid. There is no right-sided pleural mass or thickening. There are numerous hyperdense nodular areas of pleural thickening on the left. This appears similar to previous. Although nonspecific this could reflect previous talc pleurodesis. ?? AXILLA/CHEST WALL: There are no enlarged axillary lymph nodes. No chest wall mass demonstrated ?? VISUALIZED UPPER ABDOMEN: ??Previous cholecystectomy. Previous gastric surgery. The stomach is somewhat distended. MUSCULOSKELETAL: There are postoperative changes in the posterior left upper chest. ?? Displaced posterior left fifth rib with metallic densities likely clips. Displaced greater than one bone width posterior left sixth rib with some sclerosis. Irregularity lateral left sixth rib. Bridging between the lateral left fifth and sixth ribs. Bridging between the posterior left fifth and sixth ribs. There is some healing deformity of the posterior left seventh rib. Periosteal new bone posterior left eighth rib. Procedure Note Geovanny Ibanez MD - 06/10/2024 EXAMINATION: CT CHEST WITHOUT CONTRAST CLINICAL INFORMATION: Pulmonary nodule. Aspiration pneumonia of right middle lobe. COMPARISON: Portions of previous 03/03/24, 01/19/24 TECHNIQUE: Multidetector CT. Examination of the chest. Examination of the chest without IV contrast. Reformatting in the coronal and sagittal planes. DLP: 148 mGy-cm Dose optimization was performed including the use of low-dose iterativereconstruction technique with automatic exposure control based on patientsize. Type of contrast: None Volume of IV contrast: None Volume of contrast discarded: 0 mL FINDINGS: LUNG: Overall aeration markedly improved when compared to 03/03/24. The trachea and central airways are patent. There is volume loss in the upper lobes with some reticular opacities.This could reflect remote radiation change. This appears similar to01/19/24. There is a gas collection in the extreme left apex with surroundingpleural reaction. There is no fluid level. No suspicious interval change. No new suspicious mass or nodule. MEDIASTINUM: Unchanged amorphous densities in the anterior mediastinumcould reflect sequelae from remote treatment. No measurably enlarged lymph nodes. CARDIAC: Coronary stents. Calcification in the region of the mitralannulus and region of the ascending aorta/aortic valve. CORONARY CALCIFICATION: Coronary stents. VASCULAR: There is no thoracic aortic aneurysm. The main pulmonary arteryis normal caliber PLEURA: There is no drainable pleural fluid. There is no right-sidedpleural mass or thickening. There are numerous hyperdense nodular areas of pleural thickening on theleft. This appears similar to previous. Although nonspecific this could reflect previous talc pleurodesis. AXILLA/CHEST WALL: There are no enlarged axillary lymph nodes. No chestwall mass demonstrated VISUALIZED UPPER ABDOMEN: Previous cholecystectomy. Previous gastricsurgery. The stomach is somewhat distended. MUSCULOSKELETAL: There are postoperative changes in the posterior leftupper chest. Displaced posterior left fifth rib with metallic densities likely clips.Displaced greater than one bone width posterior left sixth rib with somesclerosis. Irregularity lateral left sixth rib. Bridging between thelateral left fifth and sixth ribs. Bridging between the posterior leftfifth and sixth ribs. There is some healing deformity of the posteriorleft seventh rib. Periosteal new bone posterior left eighth rib. IMPRESSION: Marked interval improvement. Resolution of previous pneumonia. Volume loss with gas collection in the left apex similar to January2024. Nodular high density areas of left pleural thickening could reflectprevious pleurodesis. No suspicious mass has developed. Left chest wall deformities consistent with previous surgery. Dr. Harris will determine subsequent management -------- FINAL REPORT -------- Dictated By: Geovanny Ibanez Dictated Date: 06/10/2024 16:50 ET Assigned Physician: Geovanny Ibanez Reviewed and Electronically Signed By: Geovanny Ibanez Signed Date: 06/10/2024 17:17 ET Workstation ID: [id number] Transcribed By: Self Edit Transcribed Date: 06/10/2024 16:50 ET us Simone Harris MD [facility] CT PROCEDURES Final Result * (ABNORMAL) Basic metabolic panel (03/30/2024 5:10 AM EST) Sodium 143 133 - 145 mmol/L LAB CHEMISTRY METHOD 03/30/2024 11:55 AM EST [facility] Potassium 4.7 3.5 - 5.5 mmol/L LAB CHEMISTRY METHOD 03/30/2024 11:55 AM [facility] Comment:Hemolysis present Chloride 112(H) 96 - 110 mmol/L LAB CHEMISTRY METHOD 03/30/2024 11:55 AM [facility] CO2 26 21 - 32 mmol/L LAB CHEMISTRY METHOD 03/30/2024 11:55 AM [facility] Anion Gap 5 3 - 11 LAB CHEMISTRY METHOD 03/30/2024 11:55 AM [facility] Glucose 70 70 - 100 mg/dL LAB CHEMISTRY METHOD 03/30/2024 11:55 AM [facility] BUN 7 5 - 25 mg/dL LAB CHEMISTRY METHOD 03/30/2024 11:55 AM [facility] Creatinine 0.46(L) 0.50 - 1.10 mg/dL LAB CHEMISTRY METHOD 03/30/2024 11:55 AM [facility] eGFR 112 >=60 mL/min/1. 73m2 LAB CHEMISTRY METHOD 03/30/2024 11:55 AM [facility] Comment:Calculation based on the??Chronic Kidney Disease Epidemiology Collaboration (CKD-EPI) equation refit??without adjustment for race. BUN/Creatinine Ratio 15.2 LAB CHEMISTRY METHOD 03/30/2024 11:55 AM [facility] Calcium 8.7 8.5 - 10.5 mg/dL LAB CHEMISTRY METHOD 03/30/2024 11:55 AM [facility] Blood Venous blood specimen / Unknown Venipuncture / Unknown 03/30/2024 5:10 AM EST 03/30/2024 10:53 AM EST us Darien Smith MD LAB BLOOD ORDERABLES Final Resul t [facility] [address] [place] [address], from Last 3 Months or Most Recently Relevant to Health Maintenance Insurance [facility] Advance Directives Documents on File Type Date Recorded Patient Medical Administrator Expl anation Advance Directives and Living Will 03/13/2024 10:32 AM Advance Directives and Living Will 03/10/2024 11:11 AM Advance Directives and Living Will 03/08/2024 12:16 PM Hemanth Hayden Health Care Proxy * Full Code - Confirmed (Latest Code Status on File) Date Activated Date Inactivated Comments 03/03/2024 9:53 AM 03/08/2024 8:44 PM This code status was ascertained in the following way: Code status discussion: discussion with patient To update the patient's code status, place a code status order. Do not modify or discontinue any currently active code status orders. Care Teams White Work Cleaner Relationship Specialty Start Date End Date Huong Johnson MD [address] [place] [address] PCP - General Internal Medicine 03/03/24
--- OUTSIDE RECORDS SUMMARY | 2024-07-01 14:36 | XMS_ITS ---
Author Organization [facility] Address [address] [address] Care Team Providers Care Safety And Security Manager Name Role Phone ADRIAN CORDERO Primary Care Provider Tessa Lemus Unavailable [phone] Allergies Allergen (clinical drug ingredient) Drug/Non Drug [...] MOD BLOOD NEG REASON FOR VISIT Annual RECRUITING CONSULTANT Physical, Annual RECRUITING CONSULTANT Physical 50-59* Medications Medication SIG (Take, Route, [...] Risk Notes Problem History of Hodgkin lymphoma (518278721) Personal history of Hodgkin lymphoma (Z85.71) Active confirmed Problem Cardiomyopathy associated with another disorder (999378121) 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 ADVISED PAT TO SEED TX AT [facility]. THEY HAVE AN ONCOLOGY-CARDIOLOG Y SECTION. 02/22/2024 [...] RECURRENCE ON HER LUNG. REFERRED PAT TO [facility] FOR FURTHER EVALUATION AND MX. Cardiomyopathy due to drug a nd external agent DISCUSSED CHF AND CARDIOMYOPATHY DUE TO RADIATION EXPOSURE. ADVISED PAT TO SEED TX AT [facility]. THEY HAVE AN ONCOLOGY-CARDIOLOGY SECTION. Dense breasts, unspecified DISCUSSED DENSE BREASTS ON MAMMOGRAM AND ITS IMPLICATIONS. 3D MAMMOGRAMS WERE RECOMMENDED. Pending Test Test Name Order Date MM Digital Mammo Screening 02/22/2024 Next Appt Details Follow Up: 1 Year, Reason: Provider Name:Tessa moise, 02/27/2025 01:00:00 PM, [address] [facility], [address], [place], [address], Progress Notes * ASHLEY HAYDENOB:[birth year] (58 yo F)Acc No.[id number]:02/22/2024 PROGRESS NOTES Patient:?PILO HAYDEN Appointment Provider:?Tessa moise M.D. :1965???Age:58 Y???Sex:Female D ate:02/22/2024 Address:[address] [place], [place] [id number] Pcp:ADRIAN CORDERO Subjective: * Chief Complaints: * ???Annual RECRUITING CONSULTANT PhysicalAnnual RECRUITING CONSULTANT Physical 50-59* * HPI: ???New/Follow-up Patient Consult:? MIRENA IUD WAS INSERTED IN 2014 TO CONTROL MENORRHAGIA AND REMOVED IN 2023 WHEN HORMONE EVALUATION CONFIRMED MENOPAUSE.? NO BLEEDING.?? SHE IS AND USES LUBRICANTS FOR DYSPAREUNIA.?? SHE HAS A HX OF HODGKIN'S LYMPHOMA IN HER 'S.? PET SCAN DONE AT [place] SHOWED LESIONS IN THE LEFT INGUINAL AREA AND LEFT UPPER LUNG LOBE.? SHE UNDERWENT THORACOTOMY AT [place] THIS SUMMER BUT THE MASS WAS NOT COMPLETELY EXCISED.? PATHOLOGY REPORT SHOWED BENIGN FINDINGS.?? SHE HAD RADIATION THERAPY ACROSS HER CHEST IN HER 'S FOR LYMPHOMA AND NOW HAS S/SX OF CHF.? SHE IS OFTEN SHORT OF BREATH AND CAN NOT PERFORM HER NORMAL ACTIVITIES.? SHE IS ON LEAVE [facility].? SHE WANTS TO CONSULT PROGRAMS PROVIDING [...] adequate calcium via diet and supplementation ?Significant RECRUITING CONSULTANT problems:?no significant gas scrubber operator symptoms or problems * ROS:?general:?no?chest pain.?no?palpitations.?no?headache.?no?cough.?no?shortness of breath.?no?fever.?no?unexplained weight loss.?no?nausea/vomiting.?no?change in bowel movements.?no blood in stool.?no?genitourinary complaints.?no?skin complaints.? * Medical History:? 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 * Examination: ???General Exam: ?CONSTITUTIONAL:?General Appearance:?alert, in no acute distress, normal, well nourished ?NECK/THYROID:?Inspection/Palpation:?normal ?Thyroid:?normal size and shape ?RESPIRATORY:?Auscultation: clear to auscultation bilaterally, Respiratory Effort: normal.?CARDIOVASCULAR:?Auscultation: regular rate and rhythm.?BREAST, Right:?Inspection/Palpation:?no discharge, no masses present, no nipple retraction, no skin changes, no skin dimpling, no tenderness, no lymphadenopathy, no axillary mass, no axillary tenderness ?BREAST, Left:?Inspection/Palpation:?no discharge, no masses present, no nipple retraction, no skin changes, no skin dimpling, no tenderness, no lymphadenopathy, no axillary mass, no axillary tenderness ?GASTROINTESTINAL:?Abdomen:?no masses, nontender, nondistended ?Liver and Spleen:?normal ?Hernias:?no hernias present, no inguinal adenopathy ?MUSCULOSKELETAL:?Inspection/Palpation:?no clubbing, cyanosis, or edema ?SKIN:?Skin:?normal ?NEURO/PSYCH:?Orientation:?time , place, person ?Mood/Affect:?normal?Genitourinary: ?EXTERNAL GENITALIA:?External Genitalia:?normal, no lesions ?VAGINA:?Vagina:?normal appearance, no abnormal discharge, no lesions ?BLADDER:?Bladder:?no mass, nontender ?URETHRA:?Urethra:?no erythema or lesions present ?CERVIX:?Cervix:?no lesions, nontender ?UTERUS:?Uterus:?nontender, normal contour, normal mobility, normal size ?ADNEXA:?Adnexa:?no masses, no tenderness ?ANUS AND PERINEUM:?Anus/Perineum:?visually normal??? Assessment: * Assessment: 1.?Encounter for gynecologic al [...] RECURRENCE ON HER LUNG. REFERRED PAT TO [facility] FOR FURTHER EVALUATION AND MX.??4.?Cardiomyopathy due to drug and external agent? Notes: DISCUSSED CHF AND CARDIOMYOPATHY DUE TO RADIATION EXPOSURE. ADVISED PAT TO SEED TX AT [facility]. THEY HAVE AN ONCOLOGY-CARDIOLOGY SECTION.??5.?Dense breasts, unspecified? Notes: DISCUSSED DENSE BREASTS ON MAMMOGRAM AND ITS IMPLICATIONS. 3D MAMMOGRAMS WERE RECOMMENDED.?? * Procedure Codes:? * Preventive Medicine:? ??YOUR PREVENTIVE WELLNESS PLAN:?Osteoporosis prevention?Calcium, D, strength training.?Breast Cancer Screening (Mammogram):?annually.?Cervical Cancer Screening (Pap Smear):?q 3 years with HPV screen.?Colorectal Cancer Screening:?q 10 years.? * Follow Up:?1 Year * Images: Billing Information: * Visit Code:? [id number] Preventive Care New Pt. Age 40-64. 39865 Preventive Care Est Pt. Age 40-64. * Procedure Codes:? * Sign off status: Completed true * Appointment Provider:?Tessa Dawson M.D. Date:?02/22/2024 Generated for Corby gonzalez/Jose/Ángel on:?07/01/2024 02:36 PM EDT History and Physical Notes * HPI (History of Present Illness) Category Sub-Category Detail Notes Category Not es New/Follow-up Patient Consult MIRENA IUD WAS INSERTED IN 2014 TO CONTROL MENORRHAGIA AND REMOVED IN 2022 WHEN HORMONE EVALUATION CONFIRMED MENOPAUSE. NO BLEEDING. SHE IS AND USES LUBRICANTS FOR DYSPAREUNIA. SHE HAS A HX OF HODGKIN'S LYMPHOMA IN HER 'S. PET SCAN DONE AT [place] SHOWED LESIONS IN THE LEFT INGUINAL AREA AND LEFT UPPER LUNG LOBE. SHE UNDERWENT THORACOTOMY AT [place] THIS SUMMER BUT THE MASS WAS NOT COMPLETELY EXCISED. PATHOLOGY REPORT SHOWED BENIGN FINDINGS. SHE HAD RADIATION THERAPY ACROSS HER CHEST IN HER 20'S FOR LYMPHOMA AND NOW HAS S/SX OF CHF. SHE IS OFTEN SHORT OF BREATH AND CAN NOT PERFORM HER NORMAL ACTIVITIES. 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 SHE WANTS TO CONSULT PROGRAMS PROVIDING EVALUATION [...] COLONOSCOPY DONE IN 2021. PFIZER X 4. Annual General Health Maintenance: Current breast complaints:: no breast pain, mass, discharge, or skin changes Urinary problems:: patient r eports no urinary health problems or bowel health problems Calcium intake:: takes adequ ate calcium via diet and supplementation Significant RECRUITING CONSULTANT problems:: n o significant gas scrubber operator symptoms or problems Examination Category Sub-Category Detail [...]
--- OUTSIDE RECORDS SUMMARY | 2024-07-01 14:36 | XMS_ITS | Continuity of Care Document ---
Author Organization [facility] Address [address] [place] [address]- Care Team Providers Care Chair Spring Assembler Name Role Phone Huong Johnson MD Primary Care Physician Encounter [facility] Date(s): 05/30/24 - 06/29/24 [facility] [address] [place], [place] [address] Encounter Type: Triage Allergies, Adverse Reactions, Alerts Substance Criticality Severity Reaction Reaction Severity Status sulfonamides hives Active Gastrografin Active oxyCODONE Itchy Skin rash Active Vicodin itch Active Percocet 5/325 itching [...] vaccine, inactivated 6 12/30/11 Gi dayana SARS-CoV-2(COVID-19)mRNA-LNP vac([id number]) 12/26/23 Recorded tetanus/diphtheria/pertussis, acel(Tdap) 7 02/16/23 Given tetanus/diphtheria/pertussis, acel(Tdap) 03/01/12 Given [id number] 12y+ bivalent booster vax 03/07/22 Recorded SARS-CoV-2 mRNA ([id number]) vax 09/08/21 Recorded SARS-CoV-2 (COVID-19) mRNA BNT-162b2 [...] 11/03/16 Recorde d 1Result Comment: Done at [facility] 2Result Comment: [facility] [id number] 3Result Comment: [facility] [id number] 4Result Comment: [12/01/2016] [facility] 5Result Comment: [02/14/2013] [facility] 6Admin Note: work 7Result Comment: [id number] 8Result Comment: Covid 19 9Result Comment: Covid 19 10Result Comment: Done at [facility] 11Result Comment: [12/01/2016] [facility] Medications albuterol CFC free 90 mcg/inh inhalation aerosol 2, puffs, Inhalation, Every 6 hours, PRN, # 8.5 Gm, Refills 2, Tot. Refills 2, Maintenance, 05/17/2409:25:00 AM EDT, Inhaler, Route to Pharmacy Electronically, NCPDP_[id number], [facility] #[id number], 157.4, cm, 05/18/23 9:45:00 EDT, Height, 93.9, [...] # 2 kit, 0 Refills, Soft Stop, 06/15/24 3:50:00PM EDT, [facility], Pt never started this medication and therefore needs loading dose, 157.4, cm, 06/15/24 15:14:00 EDT, Height, 105.6, kg, 06/14/24 13:00:00 EDT, Dry Weight Start Date: 06/15/24 Status: Ordered Quantity: 2.0 Unit: kit Repeat number: 1 Emgality Prefilled Pen 120 mg/mL subcutaneous solution = 120 mg, Subcutaneous Injection, Every 30 days, Maintenance Dose, # 1 kit, 4 Refills, Soft Stop, 06/15/24 3:51:00 PM EDT, [facility], Partial fill upon patient request if the prescription is for a schedule II opioid drug., 157.4, cm, 06/15/24 15:14:00 EDT, Height, 105.6, kg, 06/14/24 13:00:00 EDT, Dry Weight Start Date: 06/15/24 Status: Ordered Quantity: 1.0 Unit: kit Repeat [...] Refills, Maintenance, 04/10/24 12:27:00 PM EST, Tablet, [facility] #[id number], dose reduced from 137 to 125 mcg, [...] anxiety, # 60 tablet, 0 Refills, Maintenance, 06/01/24 3:18:00 PM EDT, Tablet, [facility] #[id number], Partial fill upon patient request if the prescription is for a schedule II opioid drug., 157.4, cm, 04/04/24 11:46:00 EST, Height,101.9, kg, 04/04/24 11:46:00 EST, Dry Weight Start Date: 06/01/24 Status: Ordered Quantity: 60.0 Unit: tablet Repeat [...] Replace Required Details, Route to Pharmacy Electronically, [facility] #[id number], 157.4, cm, 11/05/23 12:44:00 EDT, Height, 93.5, kg, 07/07/23 11:18:00 EDT, Dry Weight Start Date: 11/28/23 Status: Ordered Quantity: 90.0 Unit: capsule Repeat number: 4 pantoprazole 40 mg oral delayed release tablet 1 tablet, By Mouth, Daily, # 90 tablet, 1 Refills, Maintenance, 05/30/24 11:55:00 AM EDT, 157.4, cm,04/04/24 11:46:00 EST, Height, 101.9, kg, 04/04/24 11:46:00 EST, Dry Weight Start Date: 05/30/24 Status: Ordered Quantity: 90.0 Unit: tablet Repeat number: 2 pregabalin 50 mg oral capsule 2 capsules, By Mouth, 5 times a day, 0 Refills, Maintenance, 11/05/23 1:21:00 PM EDT, Partial fill upon patient request if the prescription is for a schedule II opioid drug. Start Date: 11/05/23 Status: Ordered Repeat number: 1 sertraline 100 mg oral tablet 1.5 tablet = 150 mg, By Mouth, Daily, # 135 tablet, 1 Refills, Maintenance, 06/14/24 2:14:00 PM EDT, [facility] #[id number], dose increased from 125 mg, 157.4, cm, 06/14/24 13:00:00 EDT, Height, 105.6, kg, 06/14/24 13:00:00 EDT, Dry Weight Start Date: 06/14/24 Stop Date: 12/11/24 Status: Ordered Quantity: 135.0 Unit: tablet Repeat number: 2 Trelegy Ellipta 100 mcg-62.5 mcg-25 mcg/inh inhalation [...] 11/29/12 Active Asthma, mild Confirmed 03/01/12 Active Coronary artery disease Confirmed Active Esophageal reflux (GERD) Confirmed Active Family history of colon cancer Confirmed Active History of gastric restrictive surgery Confirmed Active Hodgkin lymphoma Confirmed 1992 Active Migraine Confirmed Active Moderate persistent asthma Confirmed Active Mood disorder Confirmed Active Obstructive sleep apnea (adult or pediatric) Confirmed 03/01/12 Active Radiation-induced hypothyroidism Confirmed Active Severe obesity Confirmed Active Tubular adenoma of colon Confirmed Active Social History Social History Type Response Smoking Status Never smoker entered on: 03/16/13 Sex Sex Representation Female (finding) Patient Care team information Care Team Personnel Name: Huong Johnson MD Position: [facility] Physician - Primary Care Member Role: PCP Address: [address] [place] [address] Adult & Pediatric [address] Telecom: Name: Deann Sethi RN Position: [facility] RN Member Role: Primary Care Nurse Name: Ernestine Norris RN Position: [facility] RN Member Role: Primary Care Nurse Name: Mariela Wild MD Position: [facility] Physician - Endocrinology Member Role: Lifetime Consulting Physician Name: Nahun Garcia RN Position: [facility] RN Member Role: Primary Care Nurse Care Team Related Persons Name: JACKELYN SIOMARA Insurance Providers Guarantor name: PILODAVIS HAYDEN [facility] Plan Information #: 1 Payer: BLUE [employer] ELECT Member Number: NA Policy Number: NA Group Number: NA
--- OUTSIDE RECORDS SUMMARY | 2024-07-01 14:36 | XMS_ITS | Continuity of Care Document ---
Author Organization [facility] Address [address] [place] [address]- Care Team Providers Care Telecommunications Linesworker Name Role Phone Huong Johnson MD Primary Care Physician Encounter [facility] Date(s): 05/31/24 - 06/30/24 [facility] [address] [place], [place] [address] Encounter Type: Triage Allergies, [...] vaccine, inactivated 6 12/30/11 Gi dayana SARS-CoV-2(COVID-19)mRNA-LNP vac([id number]) 12/26/23 Recorded tetanus/diphtheria/pertussis, acel(Tdap) 7 02/16/23 Given tetanus/diphtheria/pertussis, acel(Tdap) 03/01/12 Given [id number]-HdY-2aXGD 12y+ bivalent booster vax 03/07/22 Recorded SARS-CoV-2 mRNA (gcstrbi-zeed-gvwwv) vax 09/08/21 Recorded SARS-CoV-2 (COVID-19) mRNA BNT-162b2 [...] 11/03/16 Recorde d 1Result Comment: Done at [facility] 2Result Comment: [facility] [id number] 3Result Comment: [facility] [id number] 4Result Comment: [12/01/2016] [facility] 5Result Comment: [02/14/2013] [facility] 6Admin Note: work 7Result Comment: [id number] 8Result Comment: Covid 19 9Result Comment: Covid 19 10Result Comment: Done at [facility] 11Result Comment: [12/01/2016] [facility] Medications albuterol CFC free 90 mcg/inh inhalation aerosol 2, puffs, Inhalation, Every 6 hours, PRN, # 8.5 Gm, Refills 2, Tot. Refills 2, Maintenance, 05/17/2409:25:00 AM EDT, Inhaler, Route to Pharmacy Electronically, NCPDP_[id number], [facility] #[id number], 157.4, cm, 05/18/23 9:45:00 EDT, Height, 93.9, [...] 0 Refills, Soft Stop, 06/15/24 3:50:00PM EDT, [facility], Pt never started this medication and [...] Refills, Soft Stop, 06/15/24 3:51:00 PM EDT, [facility], Partial fill upon patient request if [...] Refills, Maintenance, 04/10/24 12:27:00 PM EST, Tablet, [facility] #[id number], dose reduced from 137 to 125 mcg, [...] Refills, Maintenance, 06/01/24 3:18:00 PM EDT, Tablet, [facility] #[id number], Partial fill upon patient request if the [...] Replace Required Details, Route to Pharmacy Electronically, [facility] #[id number], 157.4, cm, 11/05/23 12:44:00 EDT, Height, 93.5, [...] 1 Refills, Maintenance, 06/14/24 2:14:00 PM EDT, [facility] #[id number], dose increased from 125 mg, 157.4, cm, [...] Name: Huong Johnson MD Position: [facility] Physician - Primary Care Member Role: PCP Address: [address] [place] [address] Adult & Pediatric [address] Telecom: Name: Deann Sethi RN Position: [facility] RN Member Role: Primary Care Nurse Name: Ernestine Norris RN Position: [facility] RN Member Role: Primary Care Nurse Name: Mariela Wild MD Position: [facility] Physician - Endocrinology Member Role: Lifetime Consulting Physician Name: Nahun Garcia RN Position: [facility] RN Member Role: Primary Care Nurse Care Team Related Persons Name: JACKELYN SIOMARA Insurance Providers Guarantor name: PILO HAYDEN [facility] Plan Information #: 1 Payer: [employer] E[employer] Member Number: NA Policy Number: NA Group Number: NA
--- OUTSIDE RECORDS SUMMARY | 2024-07-01 14:36 | XMS_ITS | Encounter Summary ---
Author Organization [facility] Address [address] [place] [address] Care Team Providers Care Society Reporter Name Role Phone Huong Johnson MD Primary Care Provider [phone] Encounter Details Date Type Department Care Team (Late st Contact Info) Description 03/18/2024 Lab Requisition [facility] - Main Lab [address] [facility] [place] [address] Darien Smith MD [address] [place] [address] [address] [place], [address] Anemia, unspecified Social History Tobacco Use [...] loved ones. For example, child day care center worker or elderly care for an older adult? [...] LAB CHEMISTRY METHOD 03/18/2024 12:02 PM EST [facility] Blood Venous blood specimen / Unknown Venipuncture / Unknown 03/18/2024 6:30 AM EST 03/18/2024 10:39 AM EST us Darien Smith MD LAB BLOOD ORDERABLES Final Resul t Performing Organization Address City/[facility]/ZIP Co de Phone Number [facility] [address] [place] [address], [place] [phone] * (ABNORMAL) Thyroid stimulating hormone (03/18/2024 6:30 AM EST) [facility] TSH 5.29(H) 0.40 - 4.00 mcIU/mL LAB CHEMISTRY METHOD 03/18/2024 12:02 PM EST [facility] Blood Venous blood specimen / Unknown Venipuncture / Unknown 03/18/2024 6:30 AM EST 03/18/2024 10:39 AM EST us Darien Smith MD LAB BLOOD ORDERABLES Final Resul t [facility] [address] [place] [address], [place] [phone] * (ABNORMAL) Comprehensive metabolic panel (03/18/2024 6:30 AM EST) [facility] Sodium 140 133 - 145 mmol/L LAB CHEMISTRY METHOD 03/18/2024 12:01 PM EST [facility] Potassium 5.5 3.5 - 5.5 mmol/L LAB CHEMISTRY METHOD 03/18/2024 12:01 PM [facility] Chloride 107 96 - 110 mmol/L LAB CHEMISTRY METHOD 03/18/2024 12:01 PM [facility] CO2 26 21 - 32 mmol/L LAB CHEMISTRY METHOD 03/18/2024 12:01 PM [facility] Anion Gap 7 3 - 11 LAB CHEMISTRY METHOD 03/18/2024 12:01 PM [facility] Glucose 75 70 - 100 mg/dL LAB CHEMISTRY METHOD 03/18/2024 12:01 PM [facility] BUN 9 5 - 25 mg/dL LAB CHEMISTRY METHOD 03/18/2024 12:01 PM [facility] Creatinine 0.78 0.50 - 1.10 mg/dL LAB CHEMISTRY METHOD 03/18/2024 12:01 PM [facility] eGFR 89 >=60 mL/min/1. 73m2 LAB CHEMISTRY METHOD 03/18/2024 12:01 PM [facility] Comment:Calculation based on the??Chronic Kidney Disease Epidemiology Collaboration (CKD-EPI) equation refit??without adjustment for race. BUN/Creatinine Ratio 11.5 LAB CHEMISTRY METHOD 03/18/2024 12:01 PM [facility] Calcium 8.6 8.5 - 10.5 mg/dL LAB CHEMISTRY METHOD 03/18/2024 12:01 [facility] AST (SGOT) 22 10 - 42 unit/L LAB CHEMISTRY METHOD 03/18/2024 12:01 [facility] ALT (SGPT) 14 10 - 60 unit/L LAB CHEMISTRY METHOD 03/18/2024 12:01 PM [facility] Alkaline Phosphatase 136(H) 42 - 121 unit/L LAB CHEMISTRY METHOD 03/18/2024 12:01 PM [facility] Total Protein 5.7(L) 6.0 - 8.0 g/dL LAB CHEMISTRY METHOD 03/18/2024 12:01 PM [facility] Albumin 2.6(L) 3.2 - 5.0 g/dL LAB CHEMISTRY METHOD 03/18/2024 12:01 PM [facility] Total Bilirubin 0.5 0.0 - 1.4 mg/dL LAB CHEMISTRY METHOD 03/18/2024 12:01 PM [facility] Blood Venous blood specimen / Unknown Venipuncture / Unknown 03/18/2024 6:30 AM EST 03/18/2024 10:39 AM EST us Darien Smith MD LAB BLOOD ORDERABLES Final Resul t [facility] [address] [place] [address], [place] [phone] * (ABNORMAL) Complete blood count (03/18/2024 6:30 AM EST) WBC 13.0(H) 4.8 - 10.8 K/mcL LAB HEMETOLOGY METHOD 03/18/2024 11:21 AM [facility] RBC 3.70(L) 3.80 - 4.80 M/mcL LAB HEMETOLOGY METHOD 03/18/2024 11:21 AM [facility] Hemoglobin 10.3(L) 11.5 - 16.0 g/dL LAB HEMETOLOGY METHOD 03/18/2024 11:21 AM [facility] Hematocrit 33.4(L) 35.0 - 47.0 % LAB HEMETOLOGY METHOD 03/18/2024 11:21 AM [facility] MCV 90.8 79.0 - 98.0 FL LAB HEMETOLOGY METHOD 03/18/2024 11:21 AM [facility] MCH 28.0 27.0 - 32.0 pcg LAB HEMETOLOGY METHOD 03/18/2024 11:21 AM [facility] MCHC 30.8(L) 32.0 - 37.0 g/dL LAB HEMETOLOGY METHOD 03/18/2024 11:21 AM EST [facility] RDW 15.1(H) 11.0 - 15.0 % LAB HEMETOLOGY METHOD 03/18/2024 11:21 AM [facility] Platelets 608(H) 130 - 400 K/mcL LAB HEMETOLOGY METHOD 03/18/2024 11:21 AM [facility] MPV 11.2(H) 7.0 - 11.0 FL LAB HEMETOLOGY METHOD 03/18/2024 11:21 AM [facility] NRBC 0.0 <1.0 % LAB HEMETOLOGY METHOD 03/18/2024 11:21 AM [facility] NRBC Absolute 0.00 <0.10 K/mcL LAB HEMETOLOGY METHOD 03/18/2024 11:21 AM [facility] Blood Venous blood specimen / Unknown Venipuncture / Unknown 03/18/2024 6:30 AM EST 03/18/2024 10:39 AM EST us Darien Smith MD LAB BLOOD ORDERABLES Final Resul t [facility] [address] [place] [address], documented in this encounter Visit Diagnoses Diagnosis Anemia, unspecified documented in this encounter Care Teams Society Reporter Relationship Specialty Start Date End Date Huong Johnson MD [address] [place] [address] PCP - General Internal Medicine 03/03/24 documented as of this encounter
--- OUTSIDE RECORDS SUMMARY | 2024-07-01 14:36 | XMS_ITS | Continuity of Care Document ---
Author Organization [facility] Address [address], [address], [address] [place] [id number] Care Team Providers Care Education Rep Name Role Phone Huong Johnson MD Primary Care Physician [phone] Encounter [facility] Date(s): 05/30/24 - 06/29/24 [facility] [address], [address] [place] [id number] En[facility] Type: Triage Allergies, Adverse Reactions, Alerts Substance Criticality Severity Reaction Reaction Severity Status sulfonamides hives Active Gastrografin Active Percocet 5/ itching Activ e oxyCODONE Itchy Skin rash Active Vicodin itch Active Immunizations Given and [...] vaccine, inactivated 6 12/30/11 [facility] SARS-CoV-2(COVID-19)mRNA-LNP vac([id number]) 12/26/23 Recorded tetanus/diphtheria/pertussis, acel(Tdap) 7 02/16/23 Given tetanus/diphtheria/pertussis, acel(Tdap) 03/01/12 Given [id number] 12y+ bivalent booster vax 03/07/22 Recorded SARS-CoV-2 mRNA (robotta-[id number]-[id number]) vax 09/08/21 Recorded SARS-CoV-2 (COVID-19) mRNA BNT-162b2 [...] 11/03/16 Recorde d 1Result Comment: Done at [facility] 2Result Comment: [facility] [id number] 3Result Comment: [facility] [id number] 4Result Comment: [12/01/2016] [facility] 5Result Comment: [02/14/2013] [facility] 6Admin Note: work 7Result Comment: [id number] 8Result Comment: Covid 19 9Result Comment: Covid 19 10Result Comment: Done at [facility] 11Result Comment: [12/01/2016] [facility] Medications albuterol CFC free 90 mcg/inh inhalation aerosol 2, puffs, Inhalation, Every 6 hours, PRN, # 8.5 Gm, Refills 2, Tot. Refills 2, Maintenance, 05/17/2409:25:00 AM EDT, Inhaler, Route to Pharmacy Electronically, NCPDP_[id number], [facility] #[id number], 157.4, cm, 05/18/23 9:45:00 EDT, Height, 93.9, kg, 05/18/23 9:45:00 EDT, Dry Weight Start Date: 05/18/23 Stop Date: 6/9/24 Status: Ordered Quantity: 8.5 Unit: g Repeat [...] 0 Refills, Soft Stop, 06/15/24 3:50:00PM EDT, [facility], Pt never started this medication [...] Refills, Soft Stop, 06/15/24 3:51:00 PM EDT, [facility], Partial fill upon patient request [...] Refills, Maintenance, 04/10/24 12:27:00 PM EST, Tablet, [facility] #[id number], dose reduced from 137 to 125 mcg, [...] Refills, Maintenance, 06/01/24 3:18:00 PM EDT, Tablet, [facility] #[id number], Partial fill upon patient request if the [...] Replace Required Details, Route to Pharmacy Electronically, [facility] #[id number], 157.4, cm, 11/05/23 12:44:00 EDT, Height, 93.5, [...] 1 Refills, Maintenance, 06/14/24 2:14:00 PM EDT, [facility] #[id number], dose increased from 125 mg, 157.4, cm, [...] Team Personnel Name: Huong Johnson MD Position: [facility] Physician - Primary Care Member Role: PCP Address: [address] [place] [address] [facility] [address] Telecom: Name: Deann Sethi RN Position: [facility] RN Member Role: Primary Care Nurse Name: Ernestine Norris RN Position: [facility] RN Member Role: Primary Care Nurse Name: Mariela Wild MD Position: [facility] Physician - Endocrinology Member Role: Lifetime Consulting Physician Name: Nahun Garcia RN Position: [facility] RN Member Role: Primary Care Nurse Care Team Related Persons Name: SIOMARA HAYDEN Insurance Providers Guarantor name: PILO HAYDEN [facility] Plan Information #: 1 Payer: [employer] Member Number: NA Policy Number: NA Group Number: NA
--- OUTSIDE RECORDS SUMMARY | 2024-07-01 14:36 | XMS_ITS | Data Portability ---
Author Organization [facility], Main Office Address [address], [address] [place] [address] Care Team Providers Care Statistical Typist Name Role Phone [facility] OTHER ADRIAN CORDEOR Primary Care Provider Assessment Encounter Date Assessment [...] Time Liver function tests outside reference range 841246736 Active [address] [facility] [address], [address], [place], [address], [facility] 5 07:37:37 Allergic rhinitis 52793591 Active [address] [facility] [address], [address], [place], [address], [facility] 5 07:37:46 Anxiety 29553163 Active 20[address] [facility] [address], [address], [place], [address], [facility] 5 07:37:54 Asthma 657442101 Active [address] [facility] [address], [address], [place], [address], [facility] 5 07:38:02 Gastroesophag eal reflux disease 192102506 Active [address] [facility] [address], [address], [place], [address], [facility] 5 07:38:10 History of Hodgkin lymphoma 812538260 Active [address] [facility] [address], [address], [place], [address], [facility] 5 07:38:45 Migraine 40082826 Active [address] [facility] [address], [address], [place], [address], [facility] 5 07:38:53 Mood disorder 07870634 Active [address] [facility] [address], [address], [place], [address], [facility] 5 07:39:02 Obstructive sleep apnea syndrome 49223544 Active [address] [facility] [address], [address], [place], [address], [facility] 5 07:39:13 Hypothyroidis m 03311997 Active [address] [facility] [address], [address], [place], [address], [facility] 5 07:39:22 Obesity 096849333 Active [address] [facility] [address], [address], [place], [address], [facility] 5 07:39:38 Adenomatous polyp of colon 312935945 Active [address] [facility] [address], [address], [place], [address], [facility] 5 07:40:10 Coronary arteriosclero sis 77472368 Active [address] [facility] [address], [address], [place], [address], [facility] 5 07:45:49 Acute respiratory failure 79774984 Active [address] [facility] [address], [address], [place], [address], [facility] 5 07:46:00 Pneumonia 872864397 Active [address] [facility] [address], [address], [place], [address], [facility] 5 07:46:08 Pleural effusion 58796675 Active [address] [facility] [address], [address], [place], [address], [facility] 5 07:46:27 Atypical chest pain 330686853 Active 2024 [facility] [address] [facility], [address], [place], [address], [facility] 5 08:00:44 Enteritis of intestine 0340340523 Active 2024 [facility] [address] [facility], [address], [place], [address], [facility] 5 08:01:43 Anterior chest wall pain 347285673 Active 2024 Courtney Hilton MD [address] [place] [address], [address], [place], [address], [facility] 5 13:31:52 Ileitis 19320048 Active 2024 Courtney Hilton MD [address] [place] [address] St, [address], [place], [address], [facility] 5 14:10:16 Insulin resistance 521950457 Active 2024 Courtney Hilton MD [address], [address], [place], [address], [facility] 5 14:16:36 Anemia 279782402 Active 2024 Courtney Hilton MD [address] [facility], [address], [place], [address], [facility] 5 14:26:33 Problem Notes None recorded. Medical Equipment None Reported. Allergies Allergen ID Allergen Name Allergen Category Reaction Reaction Severity Criticality Documentation Date Start Date Code Code System Note Provider Name and Address Organization Details Recorded Time 32302 oxycodone medicatio n itching rash Not available Not available high 03/16/20242023 7804 RxNorm Not Available Not Available Not Available 41928 Gastrogra fin medicatio n Not available Not available Not available 03/16/2024 54535 5 RxNorm Not Available Not Available Not Available 30964 Substance with sulfonami de structure and antibacte rial mechanism of action (substanc e) medicatio n Not available Not available Not available 03/16/2024 68154 8003 SNOMED Not Available Not Available Not Available 33603 acetamino phen / oxycodone medicatio n Not available Not available Not available 03/16/2024 85582 3 RxNorm Not Available Not Available Not Available 24115 diatrizoa te meglumine medicatio n Not available Not available Not available 03/17/2024 3320 RxNorm Not Available Not Available Not Available 42156 acetamino phen / hydrocodo ne medicatio n hives Not available high 03/17/20242023 73312 2 RxNorm Not Available Not Available Not Available Vitals Date Recorded Body weight Body mass index (BMI) Body height Heart rate Respiratory rate Body temperature Oxygen saturation Oxygen saturation in Arterial blood by Pulse oximetry Systolic blood pressure Diastolic blood pressure Provider Name and Address Organization Details Last Updated DateTime 5 602702. 72 g 42.6 kg/m2 154.94 cm 76 /min 18 /min 98.6 [degF] 95 % 95 % 128 mm[Hg] 71 mm[Hg] Courtney Hilton MD [address] [facility], [address], [place], [address], [facility] 5 12:31:48 Date Recorded Body height Heart rate Respiratory rate Body temperature Oxygen saturation Oxygen saturation in Arterial blood by Pulse oximetry Systolic blood pressure Diastolic blood pressure Provider Name and Address Organization Details Last Updated DateTime 5 154.94 cm 80 /min 18 /min 98.2 [degF] 97 % 97 % 135 mm[Hg] 70 mm[Hg] NETO LIAO NP [address] [facility], [address], [place], [address], [facility] 5 14:13:38 Date Recorded Body height Body mass index (BMI) Body weight Heart rate Respiratory rate Body temperature Oxygen saturation Oxygen saturation in Arterial blood by Pulse oximetry Systolic blood pressure Diastolic blood pressure Provider Name and Address Organization Details Last Updated DateTime 5 154.94 cm 41.2 kg/m2 40440.1 4 g 87 /min 18 /min 97.6 [degF] 99 % 99 % 124 mm[Hg] 70 mm[Hg] JAZMIN MOLINA [address] [facility], [address], [place], [address], [facility] 5 21:27:51 Social History Question Answer Notes LastModified by Organizat ion Details LastModified Time Tobacco Smoking Status Never Smoker Courtney Hilton MD [address] [facility], [address], [place], [address], [facility] 03/17/2024 12:59:09 Do You Have An [...] Do You Have A Medical Power Of Salesforce Administrator? Yes Not Invoked Information not available 03/17/2024 [...] Recorded Time Tdap 3 completed Donavon Sushil-Caal [facility] 03/17/2024 16:04:28 pneumococcal polysaccharide PPV23 7 completed Donavon Jeromes-Caal [facility] 03/17/2024 16:04:40 influenza, unspecified formulation 6 completed Donavon Jeromes-Caal [facility] 03/17/2024 16:04:55 influenza, unspecified formulation 7 completed [facility] 03/17/[facility]24 16:04:59 influenza, unspecified formulation 8 completed Donavon Jeromes-Caal [facility] 03/17/2024 16:05:04 influenza, unspecified formulation 1 completed Donavon Jeromes-Caal [facility] 03/17/2024 16:05:08 influenza, unspecified formulation 2 completed Donavon Jeromes-Caal null, [facility] 03/17/2024 16:05:12 MMRV 7 completed [facility] 03/17/2024 16:05:27 MMRV 7 completed [facility] 03/17/2024 16:05:32 SARS-COV-2 (COVID-19) vaccine, UNSPECIFIED 0 completed [facility] 03/17/2024 16:05:44 SARS-COV-2 (COVID-19) vaccine, UNSPECIFIED 1 completed Donavon Parsons [facility], [facility] 03/17/2024 16:05:47 SARS-COV-2 (COVID-19) vaccine, UNSPECIFIED 1 completed Donavon Parsons [facility], [facility] 03/17/2024 16:05:52 SARS-COV-2 (COVID-19) vaccine, UNSPECIFIED 2 completed Donavon Parsons [facility], [facility] 03/17/2024 16:05:56 SARS-COV-2 (COVID-19) vaccine, UNSPECIFIED 2 completed Donavon Parsons [facility], [facility] 03/17/2024 16:06:02 SARS-COV-2 (COVID-19) vaccine, UNSPECIFIED 4 completed Donavon Parsons [facility] 03/17/2024 16:06:06 zoster, unspecified formulation 0 completed Donavon Parsons [facility] 03/17/2024 16:06:19 Past Encounters Encounter ID Performer Location Encounter Start Date Encounter Closed Date Diagnosis/Indication Diagnosis SNOMED-CT Code Diagnosis ICD10 Code Diagnosis Note [id number] [facility] [address] [place] [address] 03/16/2024 07:35:02 03/17/2024 10:55:49 Coronary arteriosclerosis 50948260 I25.10 Status post KAMRYN to the proximal RCA back in [place] aspirin and atorvastat inmonitor cp Hypothyroidism 20392137 E03.9 Continue levothyrox ine 125 mcg dailymonit or tsh/t4 Gastroesop hageal reflux disease 633359728 K21.9 continue pantoprazo lemonitor ss Migraine 73034004 G43.90 9 w/ auramonito r Anxiety 08281717 F41.9 Continue sertraline , and as needed lorazepamm onitor mood and affectpsyc h prn Atypical chest pain 1025 95633 R07.89 Chronic left chest wall pain after thoracotom yGets scheduled T6, T7, T8 nerve blocks with [place] [facility] almost monthly.Co ntinue pregabalin and nortriptyl ine Enteritis of intestine 4746763355 K52.9 Continue home mesalamine and ursodiol History of Hodgkin lymphoma 215357339 Z85.71 status post mantle field radiation back in 1992 in remission for many years 4 excisional biopsy of a right groin lymph node, and left upper lung lobe mini thoracotom y after a suspicious PET scan (both biopsies negative for malignancy monitor and f/up with oncology as needed Pleural effusion 6505778 8 J90 history of recurrent left pleural effusions/ pneumothor aces status to thoracente ses (reportedl y negative for malignancy ) and eventually pleurodesi sfollows with pulmshe will sched f/up apt when she is stronger Obstructiv e sleep apnea syndrome 06976387 G47.33 CPAP qhs Obesity 811054832 E66.9 monitor diet and weightsedu cation Mood disorder 35069364 F 39 see depression Asthma 832073208 J45.90 9 mild asthmarece ntly tx for exaccontin ue symbicort and trelegy dailynebz stopped yesterday prior to dcmonitor need to restart Acute resp iratory failure 84581421 J96.00 dt asthma exac and multifocal PNAnow on RAstill sob with exertion, could be dt deconditio ningmonito r resp status Pneumonia 451021569 J18. 9 multifocal PNAmonitor cbc on admit and weeklyrepe at CXR in 6 weeksconti nue augmentin bid (ends 03/16)make f/up with her pulm Liver func tion tests outside reference range 871753169 R94.5 monitor LFTscmp on admit and weekly [id number] Courtney Hilton MD [facility] [address] [place] [address] 03/17/2024 12:00:28 03/18/2024 11:46:19 Coronary arteriosclerosis 89153205 I25.10 Status post KAMRYN to the proximal RCA in 08/2022No recent sxs.Contin ue ASA 81 mg qd and atorvastat in 40 mg qd.Monitor for sxs.F/U with cardio as planned Hypothyroidism 55595064 E03.8 Last TSH 0.48 in 02/2024.In 09/2023 TSH had been low and levothyrox ine changed to 6d/wk, unclear when it got increased again, may have been inpt error.Cont inue levothyrox ine 125 mcg qdWill recheck TSH and FT4 with next labs Gastroesop hageal reflux disease 660176873 K21.9 No current sxs.Contin ue pantoprazo le 40 mg qd.Monitor GI sxs. Migraine 30278941 G43.80 9 Relatively frequent in hx.Follows with neuro.Cont inue Emgality 120 mg monthly and nortriptyl ine 10 mg qhs.Monito r sxs.F/U as planned. Anxiety 14232745 F41.1 Mood good today.Cont inue sertraline 125 mg qd and lorazepam 0.5 mg BID prn.Monito r mood.Consu lt psych prn History of Hodgkin lymphoma 521114566 Z85.71 S/P mantle field radiation back in 1992 in remission for many yearsF/U with oncology prn Pleural effusion 4987819 8 J90 In hx, only minor on this admission. Monitor Obstructiv e sleep apnea syndrome 17628896 G47.33 Improved after gastric bypass surgery, but back on CPAP now.Contin ue CPAP with sleep.F/U with pulmonary. Obesity 932659275 E66.01 Z68.41 As above. Asthma 974594860 J45.40 Almost back to baseline.D /C med list had symbicort and trelegy listed.Pt says symbicort doesn't work, she is on trelegy at home. Actually has a brand new one in her nightstand here.Resta rt trelegy 100/62.5/2 5 mcg qdContinue albuterol q 6 hrs prn.Monito r resp status. Acute resp iratory failure 18093646 J96.01 Due to PNA causing asthma exacerbati on.Now resolved and weaned back to RA.Continu e asthma meds as below.Nadia tor resp status. Pneumonia 806675757 J15. 8 S/P multifocal PNAComplet ed course of abxs with Augmentin 875 mg BID on 03/16.Contin ue asthma meds as below.Very deconditio roberto.Needs PT/OT for strengthen ing, balance, gait training, safety and function.C ontinue fall precaution s.Monitor for safety.Mon itor resp status. 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 History of bariatric surgical procedure 458702485 Z98.84 S/P gastric bypass in 2018.Nestor nue ursodiol 500 mg BID.Contin ue to encourage healthy eating and continued wt. loss. Ileitis 80682793 K52.9 Under good control on current regimen.Co ntinue mesalamine 1.5 mg qd.Monitor sxs.F/U with GI as planned. Insulin resistance 03271 5000 E88.810 Sugars mostly WNL inpt, but HgA1C 6.2Encoura ge healthy eating and continued wt. loss.Monit or as outpt. Vitamin D deficiency 347 61236 E56.8 Continue vitamin D 2000 IU qd.Monitor levels prn Anemia 992673019 D64.89 Iron low inpt with high ferritin (likely due to infection) .Will start iron gluconate 324 mg qd. with vitamin C 500 mg qd for absorption .Monitor labs [id number] NETO LIAO NP [facility] [address] [place] [address] 03/24/2024 12:46:00 03/25/2024 13:32:28 Pneumonia 043938364 J15.8 S/P multifocal PNAComplet ed course of abxs with Augmentin 875 mg BID on 03/16.Contin ue asthma meds as below.Very deconditio roberto.Needs PT/OT for strengthen ing, balance, gait training, safety and function.G oal is to return home.Nestor nue fall precaution s.Monitor for safety.Mon itor resp status. Acute resp iratory failure 31841010 J96.01 Due to PNA causing asthma exacerbati on.Now resolved and weaned back to RA.Continu e asthma meds as below.Nadia tor resp status. Pleural effusion 0440767 8 J90 In hx, only minor on this admission. Monitor Asthma 681814695 J45.40 Almost back to baseline.D /C med list had symbicort and trelegy listed.Pt says symbicort doesn't work, she is on trelegy at home. Actually has a brand new one in her nightstand here.Resta rt trelegy 100/62.5/2 5 mcg qdContinue albuterol q 6 hrs prn.Monito r resp status. 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 Coronary arteriosclerosis 57313877 I25.10 Status post KAMRYN to the proximal RCA in 08/2022No recent sxs.Contin ue ASA 81 mg qd and atorvastat in 40 mg qd.Monitor for sxs.F/U with cardio as planned Hypothyroidism 16099253 E03.8 Last TSH 0.48 in 02/2024.In 09/2023 TSH had been low and levothyrox ine changed to 6d/wk, unclear when it got increased again, may have been inpt error.Cont inue levothyrox ine 125 mcg qdWill recheck TSH and FT4 with next labs Gastroesop hageal reflux disease 486240868 K21.9 No current sxs.Contin ue pantoprazo le 40 mg qd.Monitor GI sxs. Insulin resistance 60575 5000 E88.810 Sugars mostly WNL inpt, but HgA1C 6.2Encoura ge healthy eating and continued wt. loss.Monit or as outpt. Anemia 621345661 D64.89 Iron low inpt with high ferritin (likely due to infection) .Will start iron gluconate 324 mg qd. with vitamin C 500 mg qd for absorption .Monitor labs Migraine 09703432 G43.80 9 Relatively frequent in hx.Follows with neuro.Cont inue Emgality 120 mg monthly and nortriptyl ine 10 mg qhs.Monito r sxs.F/U as planned. Anxiety 98697181 F41.1 Mood good today.Cont inue sertraline 125 mg qd and lorazepam 0.5 mg BID prn x 14 days, re-eval 03/28Monito r mood.Consu lt psych prn Ileitis 21812648 K52.9 Under good control on current regimen.Co ntinue mesalamine 1.5 mg qd.Monitor sxs.F/U with GI as planned. History of Hodgkin lymphoma 866336329 Z85.71 S/P mantle field radiation back in 1992 in remission for many yearsF/U with oncology prn Obstructiv e sleep apnea syndrome 75406327 G47.33 Improved after gastric bypass surgery, but back on CPAP now.Contin ue CPAP with sleep.F/U with pulmonary. History of bariatric surgical procedure 210817018 Z98.84 S/P gastric bypass in 2018.Nestor nue ursodiol 500 mg BID.Contin ue to encourage healthy eating and continued wt. loss. Obesity 412013484 E66.01 Z68.41 As above. Vitamin D deficiency 347 48779 E56.8 Continue vitamin D 2000 IU qd.Monitor levels prn Dizziness 615156801 R42 When OOB, usually goes away.Somet imes she feels her HR go up, which then makes her feel more SOB.Labs goodVSSChe ck orthostati c VS x 3Monitor [id number] SHARMILA KING, [place] [address] 03/25/2024 10:15:48 03/28/2024 15:28:10 Streptococcal sore throat 58104357 J02.0 highly suspicious exam for strep throatstar t amoxicilli n 500 mg q12h x 10 daystyleno l for pain control and body achessuppo rtive care with rest and fluidscepa col throat lozenge po q2h prnthroat swab [id number] [place] [address] 03/29/2024 14:07:44 03/30/2024 15:57:47 Asthenia 42102239 R53.1 lingering weakness secondary to pneumonia and recent presumed strep throatcont inue PT/OT for strengthen ing and conditioni ngdiscusse d with patient to increase fluids to minimize risk for dehydratio n that can contribute to weakness and fatigue, patient verbalizes understand ing. Asthma 017135286 J45.40 breathing is improvingc ont on trelegyCon tinue albuterol q 6 hrs prn. [id number] JAZMIN MOLINA [facility] [address] [place] [address] 03/30/2024 09:46:22 03/31/2024 15:25:42 Asthenia 25458193 R53.1 lingering weakness secondary to pneumonia and recent presumed strep throatreco mmend continuing PT/OT for strengthen ing and conditioni ngdiscusse d with patient to increase fluids to minimize risk for dehydratio n that can contribute to weakness and fatigue, patient verbalizes understand ing. Asthma 945520587 J45.40 breathing is improvingc ont on trelegyCon tinue albuterol q 6 hrs prn. Anemia 302026078 D64.89 iron gluconate 324 mg qd. with vitamin C 500 mg qd for absorption . Anterior c hest wall pain 426641368 R07.89 Chronic left chest wall pain after thoracotom y.[facility] as plannedCon tinue pregabalin 100 mg 5x/d, nortriptyl ine 10 mg qd,and lidocaine patch daily. Anxiety 07955707 F41.1 Continue sertraline 125 mg qd Coronary arteriosclerosis 31424183 I25.10 Continue ASA 81 mg qd and atorvastat in 40 mg qd.Monitor for sxs. Enteritis of intestine 3709466928 K52.9 Continue mesalamine and ursodiol Gastroesop hageal reflux disease 682707406 K21.9 Continue pantoprazo le 40 mg qd. Hypothyroidism 98124908 E03.8 Continue levothyrox ine 125 mcg qd Ileitis 07724080 K52.9 Continue mesalamine 1.5 mg qd.F/U with GI as planned. Obstructiv e sleep apnea syndrome 42556875 G47.33 Continue CPAP with sleep.F/U with pulmonary. Health Concerns Section Related Observation LastModified by Organization Rodrigo manley LastModified Time None Recorded Concern Status LastModified by Organization Details LastModified Time None Recorded Advance Directives Directive Y: Payers Encounter Date Sequence Insurance Name Policy Number Policy Chilel Covered Member ID Chilel Member ID Guarantor Name 03/17/2024 1 [facility]MEDICARE REPLACEMENT HMO) [id number] Rose Marie Ross [id number] Rose Marie Ross 03/24/2024 1 [place] HMO) [id number] Rose Marie Ross [id number] Rose Marie Ross 03/25/2024 1 [place] HMO) [id number] Rose Marie Ross [id number] Rose Marie Escobedoo 03/29/2024 1 [place] HMO) [id number] Rose Marie Ross [id number] Rose Marie Escobedoo 03/30/2024 1 [place] HMO) [id number] Rose Marie Ross [id number] Rose Marie Ross Notes Date Note [...] the right groin lymph node on 03/12/23 ([facility] - all biopsies negative for malignancy). A complication of that procedure was left chest wall pain syndrome requiring T6-8 nerve blocks every month via [facility].She was in her normal state of [facility] however her found her on the couch with decreased responsiveness, vomitingand therefore she was fought to [facility] where she was admitted for 5 days and treated for right middle lobe pneumonia, aspiration pneumonia and acute hypoxic respiratory failure. Sputum cultures showed safia and she was discharged on Bactria, fluconazole and 4 LPM of O2 (not previously on O2 at home).She was discharged at that time. She wasdischarged to [address] [place] [address]{03/07} around 7pm.After her admission therepacheco developed severe SOB after a coughing fit and was transferred to [facility] on 03/09/24. In the ED a CT [...] wall pain since thoracotomy. Courtney Hilton MD [address] [place] [address], [address], [place], [address], [facility] 03/17/2024 21:11:11 5 text/html [...] the right groin lymph node on 03/12/23 ([facility] - all biopsies negative for malignancy). A complication of that procedure was left chest wall pain syndrome requiring T6-8 nerve blocks every month via [facility].She was in her normal state of [facility] however her found her on the couch with decreased responsiveness, vomitingand therefore she was brought to [facility] where she was admitted for 5 days and treated for right middle lobe pneumonia, aspiration pneumonia and acute hypoxic respiratory failure. Sputum cultures showed safia and she was discharged on Bactrim, fluconazole and 4 LPM of O2 (not previously on O2 at home).She was discharged at that time. She wasdischarged to [address] [place] [address]{03/07} around 7pm.After her admission rain developed severe SOB after a coughing fit and was transferred to [facility] on 03/09/24. In the ED a CT [...] pain since thoracotomy. NETO LIAO NP [address] [facility], [address], [place], [address], [facility] 03/24/2024 14:27:36 5 text/html Pt is a [...] wall pain since thoracotomy. [facility] [address] [facility], [address], [place], [address], [facility] 03/25/2024 10:23:45 5 text/html Patient is a 58 yr old female seen for acute rounding visit. She is seen sitting upright in wheelchair in her room in [facility], she reports breathing has greatly improved, continues to feel tired at times but otherwise she is doing well and is looking forward to going home. Her appetite has improved she is eating and drinking ok, denies any new discomfort, no concerns with elimination. JAZMIN MOLINA [address] [facility], [address], [place], [address], [facility] 03/29/2024 21:29:50 5 text/html Discharge summary This is a 58 yo woman who is was admitted for rehab after several recent hospitalizations, most recently for a multifocal PNA with pleural effusion and asthma exacerbation with hypoxia. Pt was admitted for 5 days at [facility] and treated for right middle lobe pneumonia, aspiration pneumonia and acute hypoxic respiratory failure. Hours after her dc to rehab she was brought to [facility] for acute hypoxic resp failure and required [...] therapy and nursing services. JAZMIN MOLINA [address] [facility], [address], [place], [address], [facility] 03/30/2024 10:18:52 OBGyn Episode No OBEpisode recorded.
--- OUTSIDE RECORDS SUMMARY | 2024-07-01 14:36 | XMS_ITS ---
Author Organization [facility] Address [address] [place] [address] Care Team Providers Care Emergency Vehicle Dispatcher Name Role Phone ADRIAN CORDERO Primary Care Provider Tessa Lemus Unavailable [phone] REASON FOR VISIT LAB SLIP FOR DIABETES TEST Encounters Encounter Location Date Provider Diagnosis [facility] [address] [facility] [address] [place] [address] 02/23/2024 Tessa Dawson Glycosuria R81 Assessments Encounter Date Diagnosis (ICD Code) Assessment Notes Treatment Notes Treatment Clinical Notes Section Notes 02/23/2024 Glycosuria (ICD-10 - R81) Plan Of Treatment Pending Test Test Name Order Date CBC, Platelet, No Differential-[id number] Hgb A1c with eAG Estimation-[id number] 02/22 Lipid Panel-[id number] 02/23/2024 Comp. Metabolic Panel [id number] 2023 Next Appt Details Provider Name:Tessa moise, 02/27/2025 01:00:00 PM, [address] [facility], [address], [place], [address], Progress Notes * ASHLEY HAYDENOB:[birth year] (58 yo F)Acc No.[id number]:02/23/2024 Patient:PILO LEON :1965???Age:58 Y???Sex:Female Address:[address] [place] [address], [address] Subjective: * Chief Complaints: * ???LAB SLIP FOR DIABETES NAGA T * Medical History:? * Surgical History:? * Hospitalization/Major Diagno stic Procedure:? * Medications:? Objective: * Vitals:? * Physical Examination:? Assessment: * Assessment: 1.?Glycosuria - R81??? Plan: * Treatment: * Procedure Codes:? * true * Date:? Generated for Corby gonzalez/Jose/Benitting on:?07/01/2024 02:36 PM EDT
== END 2024-07-01 15:02 | disposition home or self-care (01) ==
LOC: HO.HBS 13:51
PROVIDERS: PCP Internal Medicine; Visit Provider Physician Assistant Surgical
DX: E66.01 Morbid (severe) obesity due to excess calories (principal); E66.813 Obesity, class 3; Z68.41 Body mass index [BMI] 40.0-44.9, adult; Z98.84 Bariatric surgery status
CPT/HCPCS: 99214

== ENCOUNTER 2024-07-04 13:38 | Outpatient (AMB) | payer BC, SELFPAY ==
[2023-07-28 10:56] VITALS: BP 100/50; BP 114/58; BP 156/54; BMI 40.1
--- NOTE | 2024-07-04 08:38 | A.OFFVIS_ITS ---
Vital Signs 07/04/24 13:42 Height 5 ft 2 in Weight 233 lb 11.04 oz BMI 42.7 Intake Visit Reasons: Follow up Home Health Registered Nurse Required: No Customs Compliance Analyst: Customs Compliance Analyst offered & declined Accompanied by: Self / Same As Patient Allergies oxycodone [From PERCOCET] Allergy (Intermediate, Verified 07/04/24 13:47) HIVES Sulfa (Sulfonamide Antibiotics) [SULFA (SULFONAMIDE ANTIBIOTICS)] Allergy (Intermediate, Verified 07/04/24 13:47) HIVES diatrizoate meglumine [Gastrografin] Allergy (Unknown, Verified 07/04/24 13:47) red rash Medication List - Last Reconciled 07/04/24 by Jenise Cruz, WELFARE OFFICER albuterol sulfate 90 mcg/actuation 2 puffs inhalation DAILY PRN aspirin (Ecotrin Low Strength) 81 mg PO DAILY atorvastatin 40 mg PO DAILY 90 days cane As directed cholecalciferol (vitamin D3) 50 mcg PO DAILY fhwzlyclyjh-rjsvpqjdm-regfdeuo 100-62.5-25 mcg (Trelegy Ellipta) 1 inh inhalation DAILY 90 days galcanezumab-gnlm (Emgality Pen) mg subcut ipratropium-albuterol 0.5 mg-3 mg(2.5 mg base)/3 mL 3 mL inhalation Q6-8H PRN levothyroxine (Levoxyl) 125 mcg PO DAILY lidocaine 5% 1 patch topical DAILY lorazepam 0.5 mg PO BID PRN meclizine 12.5 mg PO DAILY PRN mesalamine ER 1.5 grams (4 x 0.375 gram) PO DAILY morphine 15 mg PO BID PRN nortriptyline 10 mg PO BEDTIME pantoprazole 40 mg PO DAILY pregabalin 100 mg PO QID sertraline 150 mg PO DAILY ubrogepant (Ubrelvy) 50 mg PO DAILY PRN ursodiol 500 mg PO BID walker (Ultra-Light Rollator misc) As directed HPI HPI Follow up: Details: Rose Marie is a very pleasant 58 year old female, never smoker, with underlying history of asthma, moderate aortic and mitral valve stenosis and h/o hodgkin's lymphoma in her 20s s/p mantle radiation, s/p left thoracentesis and pleurodesis, in [address] Flowers for recurrent pleural effusions, negative for malignancies. On 03/12/23 she underwent left mini thoracotomy with wedge resection of PRASHANT and excision of right groin lymph node with Dr. Washington for PET avid findings. Biopsy negative for carcinoma. Repeat CT chest from 01/2024 revealed mild interval increase in thickness of the FDG avid nodularity along the superior left mediastinal pleura, with no noted new pulmonary nodules. She was referred to Dr. Harris for further evaluation, appt was earlier this month who will continue to monitor patient with serial CTs. Will have follow up in December 2024. Since the last visit, she was admitted to [facility] 03/03 for acute hypoxic respiratory failure secondary to unilateral PNA, transferred to [facility] 03/07 on supplemental oxygen. She reported worsening respiratory symptoms ultimately readmitted to [facility] 03/09-03/15 for AHRF secondary to multifocal PNA, ultimately transferred to [facility] x [address] 06/2024 revealed resolution of PNA. Since discharge she feels her symptoms have significantly improved continues with dyspnea and intermittent dry cough. 6MWT performed at [facility] in April no longer requiring supplemental oxygen. She continues to use Trelegy, and Duoneb QD with good effect. She has been checking oxygen saturation at home never below 94%. [facility] Medical History History of mantle field radiation therapy (~1992) Environmental allergies History of shingles CAD (coronary artery disease) Stented coronary artery (~2022) Hyperlipidemia Obesity Mitral stenosis Anxiety and depression Tubular adenoma of colon History of Hodgkin's lymphoma (~1992) Radiation-induced heart disease Aortic stenosis Asthma Hypothyroid Hepatic steatosis GERD (gastroesophageal reflux disease) Herpes Surgical History History of lung surgery History of lymph node excision (03/12/23) History of lung biopsy (02/11/23) History of repair of hiatal hernia (~2017) History of thoracentesis (~2018) History of ankle surgery History of section History of colonoscopy History of heart artery stent (~2022) History of arthroscopy of right shoulder History of sleeve gastrectomy (~2017) History of esophagogastroduodenoscopy (EGD) History of cholecystectomy Family History Mother Colon cancer Father Hypertension Prostate cancer Son Diabetes Daughter Autism Social History Household Members: Spouse and Family Housing: House Are you a primary childcare director to a significant other at home: No Do you presently have visiting nurse or other home services: No Alcohol intake: current Alcohol intake frequency: holidays/special occasions only Patient Tobacco Use Status: Never used Tobacco e-Cigarette/Vaping Use: Never Used Substance Use Type: Marijuana service: No 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: employed 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 Review of Systems Const Denies chills, Denies excessive sweating, Denies fever(s), Denies headache(s) and Denies night sweats Eyes Denies dry eyes, Denies irritation and Denies itchy eyes ENT Reports Normal hearing present, Denies headache(s), Denies nasal discharge, Denies post nasal drip and Denies sore throat Card Denies chest pain with activity, Denies claudication, Denies leg edema, Reports dyspnea on exertion, Denies orthopnea and Denies paroxysmal nocturnal dyspnea Resp Denies chest congestion, Reports cough, Denies excessive phlegm production, Denies pain on inspiration, Denies pain with cough, Reports dyspnea on exertion, Denies stridor and Denies wheezing Musc Denies myalgias Neuro Reports Normal hearing present and Denies headache(s) Endo Denies excessive sweating Terrance/Lymph Denies lymphadenopathy Aller/Immun Denies itchy eyes, Denies seasonal rhinorrhea and Denies wheezing Physical Exam Vital Signs: BMI result Body Mass Index 42.7 Const General: cooperative, healthy appearing, comfortable, no acute distress, well developed and alert Nutritional Appearance: obese Orientation/consciousness: patient oriented x3 Limitations: no limitations HEENT Head: Yes normal to inspection, Yes normocephalic and Yes atraumatic Ears: hearing grossly normal bilaterally and external ears normal Eyes General: appearance normal, both eyes and all related structures Eyelids: Yes eyelids normal Sclerae: sclerae normal EOM: EOMs intact bilaterally Neck Neck: Yes normal visual inspection and Yes no lymphadenopathy Lymphatic: no lymphadenopathy noted Chest Chest palpation & inspection: normal inspection of the chest Resp Effort & Inspection: normal respiratory effort, able to speak in complete sentences, no audible wheezes, no cough, no stridor, not tachypneic, no tripod positioning and no use of accessory muscles Auscultation: diminished lung sounds Cardio Jugular venous distension: no JVD Rate: regular rate Rhythm: regular rhythm Skin Other: warm, dry General skin exam: no rashes or lesions noted Neuro General: patient oriented x3 Cranial nerves: Yes Normal hearing present Cognition (Neuro): normal cognition Gait exam (Neuro): Normal gait present Extrem General: Yes normal to inspection, Yes capillary refill normal, Yes no clubbing, cyanosis or edema and Yes no pedal edema Psych Appearance: grossly normal and well kempt Speech and movement: Normal speech and movement present and Clear speech present Affect: normal affect Attitude: cooperative Thought process: Normal thought process present Thought content: Normal thought content present Insight: Good insight present (Psych) Judgement: Good judgement present (Psych) Results Reviewed Results Reviewed: Oxygen Evaluation Patient: ??ROSE MARIE HAYDEN? Age: ??58 years?? ? Sex: ?Female?? ? : ?1965 Associated Diagnoses: ??None Author: ??Fortunato Forte 04/21/2024 Pulmonary?Clinician Note: ? Rose Marie was seen for a follow up assessment of oxygen needs.?History of?Pneumonia. Pt was discharged to a rehab facility on 03/15/24 from [facility] requiring 2L with activity supplied by?[employer].?Pt arrived to appointment today room air with SPO2 98%. ? SpO2?HR?O2?Activity ?98%? 87? RA?Rest 95%? ? 101? RA?Walking in gym > 200 feet? Encouraged pursed lip breathing and pacing.?Pt arrived with and was using a cane for accounts receivable assistant in walking. Pt reports she was in the rehab facility from 03/15/24 to 03/25/24 at which they weaned her off the oxygen. Pt does not have any oxygen supplies at home. ? Recommendations: Pt does not meet criteria for supplemental oxygen. ? ?? Time spent in addition to pulse ox:?10 minutes Total time spent:?10 minutes ? Assessment & Plan Assessment & Plan (1) Asthma: Code(s): J45.909 - Unspecified asthma, uncomplicated Category: Medical (2) History of mantle field radiation therapy: Onset Date: ~1992 Code(s): Z92.3 - Personal history of irradiation Category: Medical (3) Pleural thickening: Code(s): J92.9 - Pleural plaque without asbestos Category: Medical (4) History of Hodgkin's lymphoma: Onset Date: ~1992 Comment: (treated with radiation in 1992 - in remission) Code(s): Z85.71 - Personal history of Hodgkin lymphoma Category: Medical (5) Abnormal radiologic finding of lung field: Code(s): R91.8 - Other nonspecific abnormal finding of lung field Category: Medical (6) Intercostal neuralgia: Code(s): G58.8 - Other specified mononeuropathies Category: Medical Plan At this time, Rose Marie reports moderate control on current regimen. Encouraged increase use of DuoNeb PRN. She is aware to call if symptoms change or worsen. She will continue to be monitored through Dr. Harris's office with chest CTs, next scheduled for fall 2024. All questions were answered and patient is in agreement of plan. Will follow up in 3 months or sooner if needed. 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
[2024-07-04 13:42] VITALS: BMI 42.7
--- OUTSIDE RECORDS SUMMARY | 2024-07-04 16:17 | XMS_ITS ---
Author Organization [facility] Address [address] [address] Care Team Providers Care Warehouse Examiner Name Role Phone ADRIAN CORDERO Primary Care Provider Tessa Lemus [phone] Medications Medication SIG (Take, Route, Frequency, Duration) Notes Start Date End Date Status Cipro 500 MG 1 tablet Orally Twice a day for 7 days 06/12/2023 Active Encounters Encounter Location Date Provider Diagnosis [facility] [address] [address] 06/12/2023 Tessa Dawson Plan Of Treatment Medication Medication Name Sig Start Date Stop Date Notes Cipro 500 MG 1 tablet Orally Twice a day for 7 days 2023 Next Appt Details Provider Name:Tessa moise, 02/27/2025 01:00:00 PM, [address] [place] [address], [address], [place], [address], Progress Notes * ASHLEY HAYDENOB:[birth year] (57 yo F)Acc No.[id number]:06/12/2023 Patient:?PILO HAYDEN :1965???Age:57 Y???Sex:Female Address:[address] [place] [address], [address] * Refills? Start Cipro Tablet, 500 MG, Orally, 14 Tablet, 1 tablet, Twice a day, 7 days, Refills=0 * true * Date:? Generated for Printi lisa/Fachristineg/eTransmitting on:?07/04/2024 04:17 PM EDT
--- OUTSIDE RECORDS SUMMARY | 2024-07-04 16:17 | XMS_ITS | Encounter Summary ---
Author Organization [facility] Address [address] [place] [address] Care Team Providers Care Marketing Rotation Associate Name Role Phone Huong Johnson MD Primary Care Provider [phone] Encounter Details Date Type Department Care Team (Late st Contact Info) Description 03/29/2024 Lab Requisition [facility] - Main Lab [address] [facility] [place] [address] Darien Smith MD [address] [place] [address] [address] [place], [address] Anemia, unspecified Social History Tobacco Use [...] loved ones. For example, child day care provider or elderly care for an older adult? [...] mmol/L LAB CHEMISTRY METHOD 03/30/2024 11:[address] [facility] Potassium 4.7 3.5 - 5.5 mmol/L LAB CHEMISTRY METHOD 03/30/2024 11:[address] [facility] Comment:Hemolysis present Chloride 112(H) 96 - 110 mmol/L LAB CHEMISTRY METHOD 03/30/2024 11:[address] [facility] CO2 26 21 - 32 mmol/L LAB CHEMISTRY METHOD 03/30/2024 11:[address] [facility] Anion Gap 5 3 - 11 LAB CHEMISTRY METHOD 03/30/2024 11:[address] [facility] Glucose 70 70 - 100 mg/dL LAB CHEMISTRY METHOD 03/30/2024 11:[address] [facility] BUN 7 5 - 25 mg/dL LAB CHEMISTRY METHOD 03/30/2024 11:[address] [facility] Creatinine 0.46(L) 0.50 - 1.10 mg/dL LAB CHEMISTRY METHOD 03/30/2024 11:[address] [facility] eGFR 112 >=60 mL/min/1. 73m2 LAB CHEMISTRY METHOD 03/30/2024 11:[address] [facility] Comment:Calculation based on the??Chronic Kidney Disease Epidemiology Collaboration (CKD-EPI) equation refit??without adjustment for race. BUN/Creatinine Ratio 15.2 LAB CHEMISTRY METHOD 03/30/2024 11:[address] [facility] Calcium 8.7 8.5 - 10.5 mg/dL LAB CHEMISTRY METHOD 03/30/2024 11:[address] [facility] Blood Venous blood specimen / Unknown Venipuncture / Unknown 03/30/2024 5:10 AM EST 03/30/2024 10:53 AM EST us Darien Smith MD LAB BLOOD ORDERABLES Final Resul t [facility] [address] [place] [address], * (ABNORMAL) Complete blood count (03/30/2024 5:10 AM EST) [facility] Signature WBC 6.8 4.8 - 10.8 K/mcL LAB HEMETOLOGY METHOD 03/30/2024 11:54 AM EST [facility] RBC 3.60(L) 3.80 - 4.80 M/mcL LAB HEMETOLOGY METHOD 03/30/2024 11:[address] [facility] Hemoglobin 10.2(L) 11.5 - 16.0 g/dL LAB HEMETOLOGY METHOD 03/30/2024 11:[address] [facility] Hematocrit 33.9(L) 35.0 - 47.0 % LAB HEMETOLOGY METHOD 03/30/2024 11:[address] [facility] MCV 93.1 79.0 - 98.0 FL LAB HEMETOLOGY METHOD 03/30/2024 11:[address] [facility] MCH 28.0 27.0 - 32.0 pcg LAB HEMETOLOGY METHOD 03/30/2024 11:[address] [facility] MCHC 30.1(L) 32.0 - 37.0 g/dL LAB HEMETOLOGY METHOD 03/30/2024 11:[address] [facility] RDW 15.9(H) 11.0 - 15.0 % LAB HEMETOLOGY METHOD 03/30/2024 11:[address] [facility] Platelets 193 130 - 400 K/mcL LAB HEMETOLOGY METHOD 03/30/2024 11:[address] [facility] MPV 12.1(H) 7.0 - 11.0 FL LAB HEMETOLOGY METHOD 03/30/2024 11:54 AM EST [facility] NRBC 0.0 <1.0 % LAB HEMETOLOGY METHOD 03/30/2024 11:54 AM EST [facility] NRBC Absolute 0.00 <0.10 K/mcL LAB HEMETOLOGY METHOD 03/30/2024 11:54 AM EST [facility] Blood Venous blood specimen / Unknown Venipuncture / Unknown 03/30/2024 5:10 AM EST 03/30/2024 10:53 AM EST us Darien Smith MD LAB BLOOD ORDERABLES Final Resul t [facility] [address] [place] [address], documented in this encounter Visit Diagnoses Diagnosis Anemia, unspecified documented in this encounter Care Teams Marketing Rotation Associate Relationship Specialty Start Date End Date Huong Johnson MD [address] [place] [address] PCP - General Internal Medicine 03/03/24 documented as of this encounter
--- OUTSIDE RECORDS SUMMARY | 2024-07-04 16:17 | XMS_ITS | Encounter Summary ---
Author Organization [facility] Address [address] [place] [address] Care Team Providers Care Environmental Conflict Manager Name Role Phone Huong Johnson MD Primary Care Provider [phone] Encounter Details Date Type Department Care Team (Late st Contact Info) Description 03/22/2024 Lab Requisition [facility] - Main Lab [address] [facility] [place] [address] Darien Smith MD [address] [place] [address] [address] [place], [address] Anemia, unspecified Social History Tobacco Use [...] your loved ones. For example, child care coordinator or elderly care for an older adult? [...] mmol/L LAB CHEMISTRY METHOD 03/23/2024 10:11 AM [facility] Potassium 4.7 3.5 - 5.5 mmol/L LAB CHEMISTRY METHOD 03/23/2024 10:11 AM [facility] Chloride 109 96 - 110 mmol/L LAB CHEMISTRY METHOD 03/23/2024 10:11 AM [facility] CO2 28 21 - 32 mmol/L LAB CHEMISTRY METHOD 03/23/2024 10:11 AM [facility] Anion Gap 4 3 - 11 LAB CHEMISTRY METHOD 03/23/2024 10:11 AM [facility] Glucose 86 70 - 100 mg/dL LAB CHEMISTRY METHOD 03/23/2024 10:11 AM [facility] BUN 6 5 - 25 mg/dL LAB CHEMISTRY METHOD 03/23/2024 10:11 AM [facility] Creatinine 0.66 0.50 - 1.10 mg/dL LAB CHEMISTRY METHOD 03/23/2024 10:11 AM [facility] eGFR 103 >=60 mL/min/1. 73m2 LAB CHEMISTRY METHOD 03/23/2024 10:11 AM [facility] Comment:Calculation based on the??Chronic Kidney Disease Epidemiology Collaboration (CKD-EPI) equation refit??without adjustment for race. BUN/Creatinine Ratio 9.1 LAB CHEMISTRY METHOD 03/23/2024 10:11 AM [facility] Calcium 8.7 8.5 - 10.5 mg/dL LAB CHEMISTRY METHOD 03/23/2024 10:11 AM [facility] Blood Venous blood specimen / Unknown Venipuncture / Unknown 03/23/2024 4:56 AM EST 03/23/2024 8:44 AM EST us Darien Smith MD LAB BLOOD ORDERABLES Final Resul t [facility] [address] [place] [address], * (ABNORMAL) Complete blood count (03/23/2024 4:56 AM EST) [facility] WBC 8.2 4.8 - 10.8 K/mcL LAB HEMETOLOGY METHOD 03/23/2024 9:56 AM [facility] RBC 3.50(L) 3.80 - 4.80 M/mcL LAB HEMETOLOGY METHOD 03/23/2024 9:56 AM [facility] Hemoglobin 10.0(L) 11.5 - 16.0 g/dL LAB HEMETOLOGY METHOD 03/23/2024 9:56 AM [facility] Hematocrit 32.2(L) 35.0 - 47.0 % LAB HEMETOLOGY METHOD 03/23/2024 9:56 AM [facility] MCV 91.0 79.0 - 98.0 FL LAB HEMETOLOGY METHOD 03/23/2024 9:56 AM [facility] MCH 28.2 27.0 - 32.0 pcg LAB HEMETOLOGY METHOD 03/23/2024 9:56 AM [facility] MCHC 31.1(L) 32.0 - 37.0 g/dL LAB HEMETOLOGY METHOD 03/23/2024 9:56 AM [facility] RDW 15.5(H) 11.0 - 15.0 % LAB HEMETOLOGY METHOD 03/23/2024 9:56 AM [facility] Platelets 480(H) 130 - 400 K/mcL LAB HEMETOLOGY METHOD 03/23/2024 9:56 AM [facility] MPV 11.4(H) 7.0 - 11.0 FL LAB HEMETOLOGY METHOD 03/23/2024 9:56 AM [facility] NRBC 0.0 <1.0 [...] [facility] [address] [place] [address], documented in this encounter Visit Diagnoses Diagnosis Anemia, unspecified documented in this encounter Care Teams Environmental Conflict Manager Relationship Specialty Start Date End Date Huong Johnson MD [address] [place] [address] PCP - General Internal Medicine 03/03/24 documented as of this encounter
--- OUTSIDE RECORDS SUMMARY | 2024-07-04 16:17 | XMS_ITS | Encounter Summary ---
Author Organization [facility] Address [address] [place] [address] Care Team Providers Care Lacrosse Player Name Role Phone Huong Johnson MD Primary Care Provider [phone] Encounter Details Date Type Department Care Team (Late st Contact Info) Description 04/05/2024 Lab Requisition [facility] - Main Lab [address] [facility] [place] [address] Darien Smith MD [address] [place] [address] [address] [place], [address] Anemia, unspecified Social History Tobacco Use [...] care for your loved ones. For example, early childhood teacher or elderly care for an older [...] unspecified documented in this encounter Care Teams Lacrosse Player Relationship Specialty Start Date End Date Huong Johnson MD [address] [place] [address] PCP - General Internal Medicine 03/03/24 documented as of this encounter
--- OUTSIDE RECORDS SUMMARY | 2024-07-04 16:18 | XMS_ITS | Encounter Summary ---
Author Organization [facility] Address [address] [place] [address] Care Team Providers Care Talent Development Specialist Name Role Phone Huong Johnson MD Primary Care Provider [phone] Encounter Details Date Type Department Care Team (Late st Contact Info) Description 03/18/2024 Lab Requisition [facility] - Main Lab [address] [facility] [place] [address] Darien Smith MD [address] [place] [address] [address] [place], [address] Anemia, unspecified Social History Tobacco Use [...] for your loved ones. For example, children's nursery assistant or elderly care for an older adult? [...] LAB CHEMISTRY METHOD 03/18/2024 12:02 PM EST [facility] Blood Venous blood specimen / Unknown Venipuncture / Unknown 03/18/2024 6:30 AM EST 03/18/2024 10:39 AM EST us Darien Smith MD LAB BLOOD ORDERABLES Final Resul t Performing Organization Address City/[facility]/ZIP Co de Phone Number [facility] [address] [place] [address], [place] [phone] * (ABNORMAL) Thyroid stimulating hormone (03/18/2024 6:30 AM EST) [facility] TSH 5.29(H) 0.40 - 4.00 mcIU/mL LAB CHEMISTRY METHOD 03/18/2024 12:02 PM EST [facility] Blood Venous blood specimen / Unknown Venipuncture / Unknown 03/18/2024 6:30 AM EST 03/18/2024 10:39 AM EST us Darien Smith MD LAB BLOOD ORDERABLES Final Resul t [facility] [address] [place] [address], [place] [phone] * (ABNORMAL) Comprehensive metabolic panel (03/18/2024 6:30 AM EST) [facility] Sodium 140 133 - 145 mmol/L LAB CHEMISTRY METHOD 03/18/2024 12:01 PM EST [facility] Potassium 5.5 3.5 - 5.5 mmol/L LAB CHEMISTRY METHOD 03/18/2024 12:[address] [facility] Chloride 107 96 - 110 mmol/L LAB CHEMISTRY METHOD 03/18/2024 12:[address] [facility] CO2 26 21 - 32 mmol/L LAB CHEMISTRY METHOD 03/18/2024 12:[address] [facility] Anion Gap 7 3 - 11 LAB CHEMISTRY METHOD 03/18/2024 12:[address] [facility] Glucose 75 70 - 100 mg/dL LAB CHEMISTRY METHOD 03/18/2024 12:[address] [facility] BUN 9 5 - 25 mg/dL LAB CHEMISTRY METHOD 03/18/2024 12:[address] [facility] Creatinine 0.78 0.50 - 1.10 mg/dL LAB CHEMISTRY METHOD 03/18/2024 12:[address] [facility] eGFR 89 >=60 mL/min/1. 73m2 LAB CHEMISTRY METHOD 03/18/2024 12:[address] [facility] Comment:Calculation based on the??Chronic Kidney Disease Epidemiology Collaboration (CKD-EPI) equation refit??without adjustment for race. BUN/Creatinine Ratio 11.5 LAB CHEMISTRY METHOD 03/18/2024 12:[address] [facility] Calcium 8.6 8.5 - 10.5 mg/dL LAB CHEMISTRY METHOD 03/18/2024 12:01 [facility] AST (SGOT) 22 10 - 42 unit/L LAB CHEMISTRY METHOD 03/18/2024 12:01 [facility] ALT (SGPT) 14 10 - 60 unit/L LAB CHEMISTRY METHOD 03/18/2024 12:[address] [facility] Alkaline Phosphatase 136(H) 42 - 121 unit/L LAB CHEMISTRY METHOD 03/18/2024 12:[address] [facility] Total Protein 5.7(L) 6.0 - 8.0 g/dL LAB CHEMISTRY METHOD 03/18/2024 12:[address] [facility] Albumin 2.6(L) 3.2 - 5.0 g/dL LAB CHEMISTRY METHOD 03/18/2024 12:[address] [facility] Total Bilirubin 0.5 0.0 - 1.4 mg/dL LAB CHEMISTRY METHOD 03/18/2024 12:[address] [facility] Blood Venous blood specimen / Unknown Venipuncture / Unknown 03/18/2024 6:30 AM EST 03/18/2024 10:39 AM EST us Darien Smith MD LAB BLOOD ORDERABLES Final Resul t [facility] [address] [place] [address], [place] [phone] * (ABNORMAL) Complete blood count (03/18/2024 6:30 AM EST) WBC 13.0(H) 4.8 - 10.8 K/mcL LAB HEMETOLOGY METHOD 03/18/2024 11:[address] [facility] RBC 3.70(L) 3.80 - 4.80 M/mcL LAB HEMETOLOGY METHOD 03/18/2024 11:[address] [facility] Hemoglobin 10.3(L) 11.5 - 16.0 g/dL LAB HEMETOLOGY METHOD 03/18/2024 11:[address] [facility] Hematocrit 33.4(L) 35.0 - 47.0 % LAB HEMETOLOGY METHOD 03/18/2024 11:[address] [facility] MCV 90.8 79.0 - 98.0 FL LAB HEMETOLOGY METHOD 03/18/2024 11:[address] [facility] MCH 28.0 27.0 - 32.0 pcg LAB HEMETOLOGY METHOD 03/18/2024 11:[address] [facility] MCHC 30.8(L) 32.0 - 37.0 g/dL LAB HEMETOLOGY METHOD 03/18/2024 11:21 AM EST [facility] RDW 15.1(H) 11.0 - 15.0 % LAB HEMETOLOGY METHOD 03/18/2024 11:[address] [facility] Platelets 608(H) 130 - 400 K/mcL LAB HEMETOLOGY METHOD 03/18/2024 11:[address] [facility] MPV 11.2(H) 7.0 - 11.0 FL LAB HEMETOLOGY METHOD 03/18/2024 11:[address] [facility] NRBC 0.0 <1.0 % LAB HEMETOLOGY METHOD 03/18/2024 11:[address] [facility] NRBC Absolute 0.00 <0.10 K/mcL LAB HEMETOLOGY METHOD 03/18/2024 11:[address] [facility] Blood Venous blood specimen / Unknown Venipuncture / Unknown 03/18/2024 6:30 AM EST 03/18/2024 10:39 AM EST us Dairen Smith MD LAB BLOOD ORDERABLES Final Resul t [facility] [address] [place] [address], documented in this encounter Visit Diagnoses Diagnosis Anemia, unspecified documented in this encounter Care Teams Talent Development Specialist Relationship Specialty Start Date End Date Huong Johnson MD [address] [place] [address] PCP - General Internal Medicine 03/03/24 documented as of this encounter
--- OUTSIDE RECORDS SUMMARY | 2024-07-04 16:18 | XMS_ITS | Patient Health Record ---
Author Organization [facility] Address [address] [facility] [address] [place] [address] Care Team Providers Care Technical Lead Name Role Phone ADRIAN CORDERO Primary Care Provider Tessa Lemus Unavailable [phone] Allergies Allergen (clinical drug ingredient) Drug/Non Drug [...] W/U Status Risk Notes Problem Non-Hodgkin lymphoma (691372162) Non-Hodgkin lymphoma, unspecified, unspecified site (C85.90) Active confirmed Problem Morbid obesity (disorder) (253502271) Morbid (severe) obesity due to excess calories (E66.01) Active confirmed Problem Cardiomyopathy associated with another disorder (430997925) 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 Problem Disorder of breast (42642371) Disorder of breast, unspecified (N64.9) Active confirmed Problem Unspecified menopausal and perimenopausal disorder (N95.9) Active confirmed Problem Mammography (94075455) Inconclusive mammogram (R92.2) Active confirmed Problem Replacement of contraceptive intrauterine device (82093088) Encounter for removal and reinsertion of intrauterine contraceptive device (Z30.433) Active confirmed Problem History of Hodgkin lymphoma (633873312) Personal history of Hodgkin lymphoma (Z85.71) Active confirmed Problem History of non-Hodgkins lymphoma (717939838) Personal history of non-Hodgkin lymphomas (Z85.72) Active confirmed Problem Menopause (507380896) Menopausal and female climacteric states (N95.1) Active confirmed Problem Hypothyroidism (53436130) Unspecified hypothyroidism (244.9) Active confirmed Major Problem Pure hypercholesterolemia (027367686) Pure hypercholesterolemia (272.0) Active confirmed Major Problem Hyperlipidemia (05927592) Other and unspecified hyperlipidemia (272.4) Active confirmed Major Problem Obesity (286576424) Obesity, uns pecified (278.00) Active confirmed Diag Problem Depressive disorder (14505913) Depressive disorder, not elsewhere classified (311) Active confirmed Major Problem Benign essential hypertension (3075706) Essential hypertension, benign (401.1) Active confirmed Major Problem Essential hypertension (70316379) Unspecified essential hypertension (401.9) Active confirmed Major Problem Acute sinusitis (26516107) Acute sinusitis, unspecified (461.9) Active confirmed Diag Problem Vulvovaginitis (disorder) (39008268) Unspecified vaginitis and vulvovaginitis (616.10) Active confirmed Diag Problem Asthma (disorder) (256807277) Asthma, unspecified, unspecified status (493.90) Active confirmed Major Problem Esophageal reflux (802413036) Esophageal reflux (530.81) Active confirmed Major Problem Osteoarthritis (477832002) Osteoarthrosis, unspecified whether generalized or localized, unspecified site (715.90) Active confirmed Major Problem Joint pain (38840575) Pain in lelia int, site unspecified (719.40) Active confirmed Diag Problem Sleep apnea (31609068) Unspecified sleep apnea (780.57) Active confirmed Diag Problem Shortness of breath (545941319) Shortness of breath (786.05) Active confirmed Diag Problem Gynecological examination normal (314573180749905) Routine gynecological examination (V72.31) Active confirmed Major Vital Signs Temperature 97.8 degrees Fahrenheit 02/22/2024 Blood pressure diastolic 70 mm Hg 02/22/2024 Height 63 in 02/22/2024 Blood pressure systolic 108 mm Hg 02/22/2024 Weight 231 lbs 02/22/2024 BMI 40.92 kg/m2 02/22/2024 Encounters Encounter Location Date Provider Diagnosis [facility] [address] 02/22/2024 Tessa Dawson Encounter for gynecological examination (general) (routine) without abnormal findings Z01.419 ; Encounter for screening mammogram for malignant neoplasm of breast Z12.31 ; Personal history of Hodgkin lymphoma Z85.71 ; Cardiomyopathy due to drug and external agent I42.7 and Dense breasts, unspecified R92.30 [address] [facility] [address] 02/23/2024 Tessa Dawson Glycosuria R81 Assessments Encounter [...] RECURRENCE ON HER LUNG. REFERRED PAT TO [employer] [facility] FOR FURTHER EVALUATION AND MX. 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 ADVISED PAT TO SEED TX AT [facility]. THEY HAVE AN ONCOLOGY-CARDIOLOG Y [...] PELVIC ULTRASOUND W/TRANSVAGINAL 022 CBC, Platelet, No Differential-[id number] Hgb A1c with eAG Estimation-[id number] 02/22 Lipid Panel-[id number] 02/23/2024 Comp. Metabolic Panel [id number] 2023 Next Appt Details Provider Name:Tessa moise, 02/27/2025 01:00:00 PM, [address], [address], [place], [address], Insurance Providers Payer Name Payer Address Payer Phone Subscriber Number Group Number Insured Name Patient Relationship to Insured Coverage Start Date Coverage End Date [employer] [facility] [address] [place] [address] [id number] PILO HAYDEN Self - patient is the [...]
--- OUTSIDE RECORDS SUMMARY | 2024-07-04 16:18 | XMS_ITS | Clinical Summary ---
Author Organization [facility] Address [address] [place] [address] Phone Care Team Providers Care Lathmaker Name Role Phone Huong Johnson MD Primary Care Provider [phone] Allergies Active Allergy Reactions Criticality Noted Date [...] negative for cancer including a left thoracotomy [place]. I had a long discussion with her [...] PM EDT Office Visit Thoracic Surgery - [address] [phone] Simone Harris MD Pulmonary nodule (Primary Dx); Aspiration pneumonia of right middle lobe, unspecified aspiration pneumonia type (CMS/HCC V24, CMS/HCC V28) 06/08/2024 3:00 PM EDT - 06/08/2024 11:59 PM EDT Hospital Encounter CT Scan [address] [place] [phone] Pulmonary nodule; Aspiration pneumonia of right middle lobe, unspecified aspiration pneumonia type (CMS/HCC V24, CMS/HCC V28) Discharge Disposition: Home or Self Care 05/12/2024 2:00 PM EST Consult Thoracic Surgery - [place] [address] [phone] Simone Harris MD Pulmonary nodule (Primary Dx); Aspiration pneumonia of right middle lobe, unspecified aspiration pneumonia type (CMS/HCC V24, CMS/HCC V28); Recurrent pleural effusion on left 04/05/[address] [facility] - Main Lab [address] [facility] [place] [address] Darien Smith MD Anemia, unspecified [...] for your loved ones. For example, child welfare consultant or elderly care for an older adult? [...] Signed Date: 06/10/2024 17:17 ET Workstation ID: [id number] Transcribed By: Self Edit Transcribed Date: 06/10/2024 [...] Signed Date: 06/10/2024 17:17 ET Workstation ID: [id number] Transcribed By: Self Edit Transcribed Date: 06/10/2024 16:50 ET us Simone Harris MD [facility] [place]ED[place] Final Result * (ABNORMAL) Basic metabolic panel (03/30/2024 5:10 AM EST) Sodium 143 133 - 145 mmol/L LAB CHEMISTRY METHOD 03/30/2024 11:55 AM EST [facility] Potassium [...] MD LAB BLOOD ORDERABLES Final Resul t [facility] [address] [place] [address], from Last 3 Months or Most Recently Relevant to Health Maintenance Insurance [facility] Advance Directives Documents on File Type Date Recorded 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 Care Teams Lathmaker Relationship Specialty Start Date End Date Huong Johnson MD [address] [place] [address] PCP - General Internal Medicine 03/03/24
--- OUTSIDE RECORDS SUMMARY | 2024-07-04 16:18 | XMS_ITS ---
Author Organization [facility] Address [address] [place] [address] Care Team Providers Care Abrasive Worker Name Role Phone ADRIAN CORDERO Primary Care Provider Tessa Lemus Unavailable [phone] REASON FOR VISIT LAB SLIP FOR DIABETES TEST Encounters Encounter Location Date Provider Diagnosis [facility] [address] [facility] [address] [place] [address] 02/23/2024 Tessa Dawson Glycosuria R81 Assessments Encounter Date Diagnosis (ICD Code) Assessment Notes Treatment Notes Treatment Clinical Notes Section Notes 02/23/2024 Glycosuria (ICD-10 - R81) Plan Of Treatment Pending Test Test Name Order Date CBC, Platelet, No Differential-[id number] Hgb A1c with eAG Estimation-[id number] 02/22 Lipid Panel-[id number] 02/23/2024 Comp. Metabolic Panel [id number] 2023 Next Appt Details Provider Name:Tessa moise, 02/27/2025 01:00:00 PM, [address] [facility], [address], [place], [address], Progress Notes * ASHLEY HAYDENOB:[birth year] (58 yo F)Acc No.[id number]:02/23/2024 Patient:PILO LEON :1965???Age:58 Y???Sex:Female Address:[address] [place] [address], [address] Subjective: * Chief Complaints: * ???LAB SLIP FOR DIABETES NAGA T * Medical History:? * Surgical History:? * Hospitalization/Major Diagno stic Procedure:? * Medications:? Objective: * Vitals:? * Physical Examination:? Assessment: * Assessment: 1.?Glycosuria - R81??? Plan: * Treatment: * Procedure Codes:? * true * Date:? Generated for Corby gonzalez/Jose/Benitting on:?07/04/2024 04:18 PM EDT
--- OUTSIDE RECORDS SUMMARY | 2024-07-04 16:18 | XMS_ITS ---
Author Organization [facility] Address [address] [address] Care Team Providers Care Admitting Counselor Name Role Phone ADRIAN CORDERO Primary Care Provider Tessa Lemus Unavailable [phone] Allergies Allergen (clinical drug ingredient) Drug/Non Drug [...] MOD BLOOD NEG REASON FOR VISIT Annual CONVEYOR MONITOR Physical, Annual CONVEYOR MONITOR Physical 50-59* Medications Medication SIG (Take, Route, [...] Risk Notes Problem History of Hodgkin lymphoma (642599626) Personal history of Hodgkin lymphoma (Z85.71) Active confirmed Problem Cardiomyopathy associated with another disorder (929657954) 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 ADVISED PAT TO SEED TX AT [facility]. THEY HAVE AN ONCOLOGY-CARDIOLOG Y SECTION. 02/22/2024 [...] RECURRENCE ON HER LUNG. REFERRED PAT TO [facility] FOR FURTHER EVALUATION AND MX. Cardiomyopathy due to drug a nd external agent DISCUSSED CHF AND CARDIOMYOPATHY DUE TO RADIATION EXPOSURE. ADVISED PAT TO SEED TX AT [facility]. THEY HAVE AN ONCOLOGY-CARDIOLOGY SECTION. Dense breasts, unspecified DISCUSSED DENSE BREASTS ON MAMMOGRAM AND ITS IMPLICATIONS. 3D MAMMOGRAMS WERE RECOMMENDED. Pending Test Test Name Order Date MM Digital Mammo Screening 02/22/2024 Next Appt Details Follow Up: 1 Year, Reason: Provider Name:Tessa moise, 02/27/2025 01:00:00 PM, [address] [facility], [address], [place], [address], Progress Notes * ASHLEY HAYDENOB:[birth year] (58 yo F)Acc No.[id number]:02/22/2024 PROGRESS NOTES Patient:?PILO HAYDEN Appointment Provider:?Tessa moise M.D. :1965???Age:58 Y???Sex:Female D ate:02/22/2024 Address:[address] [place], [place] [id number] Pcp:ADRIAN CORDERO Subjective: * Chief Complaints: * ???Annual CONVEYOR MONITOR PhysicalAnnual CONVEYOR MONITOR Physical 50-59* * HPI: ???New/Follow-up Patient Consult:? MIRENA IUD WAS INSERTED IN 2014 TO CONTROL MENORRHAGIA AND REMOVED IN 2023 WHEN [facility] EVALUATION CONFIRMED MENOPAUSE.? NO BLEEDING.?? SHE IS AND USES LUBRICANTS FOR DYSPAREUNIA.?? SHE HAS A HX OF HODGKIN'S LYMPHOMA IN HER 'S.? PET SCAN DONE AT [facility] SHOWED LESIONS IN THE LEFT INGUINAL AREA AND LEFT UPPER LUNG LOBE.? SHE UNDERWENT THORACOTOMY AT [facility] THIS SUMMER BUT THE MASS WAS NOT COMPLETELY EXCISED.? PATHOLOGY REPORT SHOWED BENIGN FINDINGS.?? SHE HAD RADIATION THERAPY ACROSS HER CHEST IN HER 'S FOR LYMPHOMA AND NOW HAS S/SX OF CHF.? SHE IS OFTEN SHORT OF BREATH AND CAN NOT PERFORM HER NORMAL ACTIVITIES.? SHE IS ON LEAVE FROM HER JOB CHIEF X-RAY FOOD AND [facility]UTR[facility].? SHE WANTS TO CONSULT PROGRAMS PROVIDING [...] adequate calcium via diet and supplementation ?Significant CONVEYOR MONITOR problems:?no significant grocery team member symptoms or problems * ROS:?general:?no?chest pain.?no?palpitations.?no?headache.?no?cough.?no?shortness of breath.?no?fever.?no?unexplained weight loss.?no?nausea/vomiting.?no?change in bowel movements.?no blood in stool.?no?genitourinary complaints.?no?skin complaints.? * Medical History:? * Herd Tester History:?/ Para?3/2.?Sexual activity?currently sexually active.?Last Pap Smear:?02/16/23 [...] RECURRENCE ON HER LUNG. REFERRED PAT TO [facility] FOR FURTHER EVALUATION AND MX.??4.?Cardiomyopathy due to drug and external agent? Notes: DISCUSSED CHF AND CARDIOMYOPATHY DUE TO RADIATION EXPOSURE. ADVISED PAT TO SEED TX AT [facility]. THEY HAVE AN ONCOLOGY-CARDIOLOGY SECTION.??5.?Dense breasts, unspecified? Notes: DISCUSSED DENSE BREASTS ON MAMMOGRAM AND ITS IMPLICATIONS. 3D MAMMOGRAMS WERE RECOMMENDED.?? * Procedure Codes:? * Preventive Medicine:? ??YOUR PREVENTIVE WELLNESS PLAN:?Osteoporosis prevention?Calcium, D, strength training.?Breast Cancer Screening (Mammogram):?annually.?Cervical Cancer Screening (Pap Smear):?q 3 years with HPV screen.?Colorectal Cancer Screening:?q 10 years.? * Follow Up:?1 Year * Images: Billing Information: * Visit Code:? 05712 Preventive Care New Pt. Age 40-64. 05090 Preventive Care Est Pt. Age 40-64. * Procedure Codes:? * Sign off status: Completed true * Appointment Provider:?Tessa Dawson M.D. Date:?02/22/2024 Generated for Corby gonzalez/Jose/Ángel on:?07/04/2024 04:18 PM EDT History and Physical Notes * HPI (History of Present Illness) Category Sub-Category Detail Notes Category Not es New/Follow-up Patient Consult MIRENA IUD WAS INSERTED IN 2014 TO CONTROL MENORRHAGIA AND REMOVED IN 2022 WHEN [facility] EVALUATION CONFIRMED MENOPAUSE. NO BLEEDING. SHE IS AND USES LUBRICANTS FOR DYSPAREUNIA. SHE HAS A HX OF HODGKIN'S LYMPHOMA IN HER 'S. PET SCAN DONE AT [facility] SHOWED LESIONS IN THE LEFT INGUINAL AREA AND LEFT UPPER LUNG LOBE. SHE UNDERWENT THORACOTOMY AT [facility] THIS SUMMER BUT THE MASS WAS NOT COMPLETELY EXCISED. PATHOLOGY REPORT SHOWED BENIGN FINDINGS. SHE HAD RADIATION THERAPY ACROSS HER CHEST IN HER 20'S FOR LYMPHOMA AND NOW HAS S/SX OF CHF. SHE IS OFTEN SHORT OF BREATH AND CAN NOT PERFORM HER NORMAL ACTIVITIES. 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 SHE WANTS TO CONSULT PROGRAMS [...] ate calcium via diet and supplementation Significant CONVEYOR MONITOR problems:: n o significant grocery team member symptoms or problems Examination Category Sub-Category Detail [...]
== END 2024-07-04 14:28 | disposition home or self-care (01) ==
LOC: HO.HPS 13:38
PROVIDERS: PCP Internal Medicine; Visit Provider Nurse Practitioner Family
DX: J45.909 Unspecified asthma, uncomplicated (principal); Z92.3 Personal history of irradiation; J92.9 Pleural plaque without asbestos; Z85.71 Personal history of Hodgkin lymphoma; R91.8 Other nonspecific abnormal finding of lung field; G58.8 Other specified mononeuropathies
CPT/HCPCS: 99214

== ENCOUNTER → 2024-07-04 13:38 | Outpatient (BNVA) | payer BC, SELFPAY ==
[2023-07-28 10:56] VITALS: BP 100/50; BP 114/58; BP 156/54; BMI 40.1
== END ==
PROVIDERS: PCP Internal Medicine; Visit Provider Nurse Practitioner Family

== ENCOUNTER 2024-07-25 09:00 | Outpatient (REF) | payer BC, SELFPAY ==
[2024-07-21 08:49] VITALS: BP 100/50; BP 114/58; BP 156/54; BMI 40.1
--- OUTSIDE RECORDS SUMMARY | 2024-07-25 09:53 | XMS_ITS | Encounter Summary ---
Author Organization [facility] Address [address] [place] [address] Care Team Providers Care Cement Conveyor Operator Name Role Phone Huong Johnson MD Primary Care Provider [phone] Encounter Details Date Type Department Care Team (Late st Contact Info) Description 03/18/[address] [facility] - Main Lab 299 [facility] [place] [address] Darien Smith MD [address] [place] [address] [address] [place], [phone] Anemia, unspecified Social History Tobacco Use [...] LAB CHEMISTRY METHOD 03/18/2024 12:02 PM EST [facility] Blood Venous blood specimen / Unknown Venipuncture / Unknown 03/18/2024 6:30 AM EST 03/18/2024 10:39 AM EST us Darien Smith MD LAB BLOOD ORDERABLES Final Resul t Performing Organization Address City/[facility]/ZIP Co de Phone Number [facility] [address] [place] [address], [place] [phone] * (ABNORMAL) Thyroid stimulating hormone (03/18/2024 6:30 AM EST) [facility] TSH 5.29(H) 0.40 - 4.00 mcIU/mL LAB CHEMISTRY METHOD 03/18/2024 12:02 PM EST [facility] Blood Venous blood specimen / Unknown Venipuncture / Unknown 03/18/2024 6:30 AM EST 03/18/2024 10:39 AM EST us Darien Smith MD LAB BLOOD ORDERABLES Final Resul t [facility] [address] [place] [address], [place] [phone] * (ABNORMAL) Comprehensive metabolic panel (03/18/2024 6:30 AM EST) [facility] Sodium 140 133 - 145 mmol/L LAB CHEMISTRY METHOD 03/18/2024 12:01 PM EST [facility] Potassium 5.5 3.5 - [...] MD LAB BLOOD ORDERABLES Final Resul t [facility] [address] [place] [address], [place] [phone] * (ABNORMAL) Complete blood count (03/18/2024 6:30 [...] LAB HEMETOLOGY METHOD 03/18/2024 11:21 AM EST [facility] RDW 15.1(H) 11.0 - [...] MD LAB BLOOD ORDERABLES Final Resul t [facility] [address] [place] [address], documented in this encounter Visit Diagnoses Diagnosis Anemia, unspecified documented in this encounter Care Teams Cement Conveyor Operator Relationship Specialty Start Date End Date Huong Johnson MD [address] [place] [address] PCP - General Internal Medicine 03/03/24 documented as of this encounter
--- OUTSIDE RECORDS SUMMARY | 2024-07-25 09:53 | XMS_ITS | Encounter Summary ---
Author Organization [facility] Address [address] [place] [address] Care Team Providers Care Leather Dresser Name Role Phone Huong Johnson MD Primary Care Provider Encounter Details Date Type Department Care Team (Late st Contact Info) Description 04/05/[address] [facility] - Main Lab 299 [facility] [place] [address] Darien Smith MD [address] [place] [address] [address] [place], [phone] Anemia, unspecified Social History Tobacco Use [...] your loved ones. For example, child care group leader or elderly care for an older adult? [...] unspecified documented in this encounter Care Teams Leather Dresser Relationship Specialty Start Date End Date Huong Johnson MD [address] [place] [address] PCP - General Internal Medicine 03/03/24 documented as of this encounter
--- OUTSIDE RECORDS SUMMARY | 2024-07-25 09:53 | XMS_ITS | Clinical Summary ---
Author Organization [facility] Address [address] [place] [address] Phone Care Team Providers Care Ash Collector Name Role Phone Huong Johnson MD Primary Care Provider [phone] Allergies Active Allergy Reactions Criticality Noted Date [...] negative for cancer including a left thoracotomy [place]. I had a long discussion with her [...] PM EDT Office Visit Thoracic Surgery - [place] 299 [facility] [address] [place] [phone] Simone Harris MD Pulmonary nodule (Primary Dx); Aspiration pneumonia of right middle lobe, unspecified aspiration pneumonia type (CMS/HCC V24, CMS/HCC V28) 06/08/2024 3:00 PM EDT - 06/08/2024 11:59 PM EDT Hospital Encounter [facility] CT Scan [address] [place] [phone] Pulmonary nodule; Aspiration pneumonia of right middle lobe, unspecified aspiration pneumonia type (CMS/HCC V24, CMS/HCC V28) Discharge Disposition: Home or Self Care 05/12/2024 2:00 PM EST Consult Thoracic Surgery - [address] [phone] Simone Harris MD Pulmonary nodule (Primary Dx); [...] Signed Date: 06/10/2024 17:17 ET Workstation ID: [id number] Transcribed By: Self Edit Transcribed Date: 06/10/2024 [...] Signed Date: 06/10/2024 17:17 ET Workstation ID: [id number] Transcribed By: Self Edit Transcribed Date: 06/10/2024 16:50 ET Simone Harris MD [facility] CT PROCEDURES Final Result * (ABNORMAL) Basic metabolic panel (03/30/2024 5:10 AM EST) Sodium 143 133 - 145 mmol/L LAB CHEMISTRY METHOD 03/30/2024 11:55 AM EST [facility] Potassium 4.7 3.5 - 5.5 mmol/L LAB CHEMISTRY METHOD 03/30/2024 11:55 AM EST [facility] LAB Comment:Hemolysis present Chloride 112(H) 96 - 110 mmol/L LAB CHEMISTRY METHOD 03/30/2024 11:55 AM EST [facility] CO2 26 21 - [...] Resul t [facility] [address] [place] [address], from Last 3 Months or Most Recently Relevant to Health Maintenance Insurance [facility] Advance Directives Documents on File Type Date Recorded Patient Backup Engineer Expl anation Advance Directives and Living Will [...] currently active code status orders. Care Teams Ash Collector Relationship Specialty Start Date End Date Huong Johnson MD [address] [place] [address] PCP - General Internal Medicine 03/03/24
--- OUTSIDE RECORDS SUMMARY | 2024-07-25 09:53 | XMS_ITS | Encounter Summary ---
Author Organization [facility] Address [address] [place] [address] Care Team Providers Care Photocopying Machine Operator Name Role Phone Huong Johnson MD Primary Care Provider [phone] Encounter Details Date Type Department Care Team (Late st Contact Info) Description 03/29/2024 Lab Requisition [facility] - Main Lab 299 [facility] [place] [address] Darien Smith MD [address] [place] [address] [address] [place], [phone] Anemia, unspecified Social History Tobacco Use [...] mmol/L LAB CHEMISTRY METHOD 03/30/2024 11:55 AM [facility] Potassium 4.7 3.5 - 5.5 mmol/L LAB CHEMISTRY METHOD 03/30/2024 11:55 AM [facility] LAB Comment:Hemolysis present Chloride 112(H) 96 - 110 mmol/L LAB CHEMISTRY METHOD 03/30/2024 11:55 AM [facility] CO2 26 21 - 32 mmol/L LAB CHEMISTRY METHOD 03/30/2024 11:55 AM [facility] Anion Gap 5 3 - 11 LAB CHEMISTRY METHOD 03/30/2024 11:55 AM [facility] Glucose 70 70 - 100 mg/dL LAB CHEMISTRY METHOD 03/30/2024 11:55 AM [facility] BUN 7 5 - 25 mg/dL LAB CHEMISTRY METHOD 03/30/2024 11:55 AM [facility] Creatinine 0.46(L) 0.50 - 1.10 mg/dL LAB CHEMISTRY METHOD 03/30/2024 11:55 AM [facility] LAB eGFR 112 >=60 mL/min/1. 73m2 LAB CHEMISTRY METHOD 03/30/2024 11:55 AM [facility] LAB Comment:Calculation based on the??Chronic Kidney Disease Epidemiology Collaboration (CKD-EPI) equation refit??without adjustment for race. BUN/Creatinine Ratio 15.2 LAB CHEMISTRY METHOD 03/30/2024 11:55 AM [facility] Calcium 8.7 8.5 - 10.5 mg/dL LAB CHEMISTRY METHOD 03/30/2024 11:55 AM [facility] Blood Venous blood specimen / Unknown Venipuncture / Unknown 03/30/2024 5:10 AM EST 03/30/2024 10:53 AM EST us Darien Smith MD LAB BLOOD ORDERABLES Final Resul t [facility] [address] [place] [address], * (ABNORMAL) Complete blood count (03/30/2024 5:10 AM EST) [facility] Signature WBC 6.8 4.8 - 10.8 K/mcL LAB HEMETOLOGY METHOD 03/30/2024 11:[address] [facility] RBC 3.60(L) 3.80 - 4.80 M/mcL LAB HEMETOLOGY METHOD 03/30/2024 11:54 AM [facility] Hemoglobin 10.2(L) 11.5 - 16.0 g/dL LAB HEMETOLOGY METHOD 03/30/2024 11:54 AM [facility] Hematocrit 33.9(L) 35.0 - 47.0 % LAB HEMETOLOGY METHOD 03/30/2024 11:54 AM [facility] LAB MCV 93.1 79.0 - 98.0 FL LAB HEMETOLOGY METHOD 03/30/2024 11:54 AM [facility] LAB MCH 28.0 27.0 - 32.0 pcg LAB HEMETOLOGY METHOD 03/30/2024 11:54 AM [facility] LAB MCHC 30.1(L) 32.0 - 37.0 g/dL LAB HEMETOLOGY METHOD 03/30/2024 11:54 AM [facility] RDW 15.9(H) 11.0 - 15.0 % LAB HEMETOLOGY METHOD 03/30/2024 11:54 AM [facility] Platelets 193 130 - 400 K/mcL LAB HEMETOLOGY METHOD 03/30/2024 11:54 AM [facility] MPV 12.1(H) 7.0 - [...] t [facility] [address] [place] [address], documented in this encounter Visit Diagnoses Diagnosis Anemia, unspecified documented in this encounter Care Teams Photocopying Machine Operator Relationship Specialty Start Date End Date Huong Johnson MD [address] [place] [address] PCP - General Internal Medicine 03/03/24 documented as of this encounter
--- OUTSIDE RECORDS SUMMARY | 2024-07-25 09:53 | XMS_ITS | Encounter Summary ---
Author Organization [facility] Address [address] [place] [address] Care Team Providers Care Informaticist Name Role Phone Huong Johnson MD Primary Care Provider [phone] Encounter Details Date Type Department Care Team (Late st Contact Info) Description 03/22/2024 Lab Requisition [facility] - Main Lab 299 [facility] [place] [address] Darien Smith MD [address] [place] [address] [address] [place], [address] Anemia, unspecified Social History Tobacco Use [...] care for your loved ones. For example, residential child care counselor or elderly care for an older adult? [...] mmol/L LAB CHEMISTRY METHOD 03/23/2024 10:11 AM [facility] Potassium 4.7 3.5 - 5.5 mmol/L LAB CHEMISTRY METHOD 03/23/2024 10:11 AM [facility] Chloride 109 96 - 110 mmol/L LAB CHEMISTRY METHOD 03/23/2024 10:11 AM [facility] CO2 28 21 - 32 mmol/L LAB CHEMISTRY METHOD 03/23/2024 10:11 AM [facility] Anion Gap 4 3 - 11 LAB CHEMISTRY METHOD 03/23/2024 10:11 AM [facility] Glucose 86 70 - 100 mg/dL LAB CHEMISTRY METHOD 03/23/2024 10:11 AM [facility] BUN 6 5 - 25 mg/dL LAB CHEMISTRY METHOD 03/23/2024 10:11 AM [facility] Creatinine 0.66 0.50 - 1.10 mg/dL LAB CHEMISTRY METHOD 03/23/2024 10:11 AM [facility] eGFR 103 >=60 mL/min/1. 73m2 LAB CHEMISTRY METHOD 03/23/2024 10:11 AM [facility] LAB Comment:Calculation based on the??Chronic Kidney Disease Epidemiology Collaboration (CKD-EPI) equation refit??without adjustment for race. BUN/Creatinine Ratio 9.1 LAB CHEMISTRY METHOD 03/23/2024 10:11 AM [facility] Calcium 8.7 8.5 - 10.5 mg/dL LAB CHEMISTRY METHOD 03/23/2024 10:11 AM [facility] Blood Venous blood specimen / Unknown Venipuncture / Unknown 03/23/2024 4:56 AM EST 03/23/2024 8:44 AM EST us Darien Smith MD LAB BLOOD ORDERABLES Final Resul t [facility] [address] [place] [address], * (ABNORMAL) Complete blood count (03/23/2024 4:56 AM EST) [facility] WBC 8.2 4.8 - 10.8 K/mcL LAB HEMETOLOGY METHOD 03/23/2024 9:56 AM [facility] RBC 3.50(L) 3.80 - 4.80 M/mcL LAB HEMETOLOGY METHOD 03/23/2024 9:56 AM [facility] Hemoglobin 10.0(L) 11.5 - 16.0 g/dL LAB HEMETOLOGY METHOD 03/23/2024 9:56 AM [facility] Hematocrit 32.2(L) 35.0 - 47.0 % LAB HEMETOLOGY METHOD 03/23/2024 9:56 AM [facility] MCV 91.0 79.0 - 98.0 FL LAB HEMETOLOGY METHOD 03/23/2024 9:56 AM [facility] MCH 28.2 27.0 - 32.0 pcg LAB HEMETOLOGY METHOD 03/23/2024 9:56 AM [facility] MCHC 31.1(L) 32.0 - 37.0 g/dL LAB HEMETOLOGY METHOD 03/23/2024 9:56 AM [facility] RDW 15.5(H) 11.0 - 15.0 % LAB HEMETOLOGY METHOD 03/23/2024 9:56 AM [facility] Platelets 480(H) 130 - 400 K/mcL LAB HEMETOLOGY METHOD 03/23/2024 9:56 AM [facility] MPV 11.4(H) 7.0 - 11.0 FL LAB HEMETOLOGY METHOD 03/23/2024 9:56 AM [facility] NRBC 0.0 <1.0 % LAB HEMETOLOGY METHOD 03/23/2024 9:56 AM EST [facility] LAB NRBC Absolute 0.00 <0.10 K/mcL LAB HEMETOLOGY METHOD 03/23/2024 9:56 AM EST [facility] LAB Blood Venous blood specimen / Unknown Venipuncture / Unknown 03/23/2024 4:56 AM EST 03/23/2024 8:44 AM EST us Darien Smith MD LAB BLOOD ORDERABLES Final Resul t [facility] [address] [place] [address], documented in this encounter Visit Diagnoses Diagnosis Anemia, unspecified documented in this encounter Care Teams Informaticist Relationship Specialty Start Date End Date Huong Johnson MD [address] [place] [address] PCP - General Internal Medicine 03/03/24 documented as of this encounter
[2024-07-25 09:57] LABS: MANUAL DIFF FLAG NO
[2024-07-25 10:31] LABS: Basophils Absolute Auto 0.1 X10*3/uL (0.0-0.2); Basophils Percent Auto 0.8 % (0-2); Eosinophils Absolute Auto 0.5 X10*3/uL (0.0-0.4); Eosinophils Percent Auto 4.5 % (0-4); Hematocrit 36.1 % (37.0-47.0); Hemoglobin 11.4 g/dl (12.0-16.0); Imm Gran Abs Auto 0.05 X10*3/uL (0.00-0.03); Imm Gran Pct Auto 0.5 % (0.0-0.4); Lymphocytes Absolute Auto 3.3 X10*3/uL (1.2-4.9); Lymphocytes Percent Auto 31.7 % (20-40); Mean Corpuscular HGB Conc 31.6 g/dl (31.0-35.0); Mean Corpuscular Hemoglobin 27.3 pg (27.0-33.0); Mean Corpuscular Volume 86.4 fL (80.0-98.0); Mean Platelet Volume 11.4 fL (9.4-12.3); Monocytes Absolute Auto 1.2 X10*3/uL (0.1-1.2); Monocytes Percent Auto 11.9 % (2-11); Neutrophils Absolute Auto 5.3 x10*3/uL (2.0-8.3); Neutrophils Percent Auto 50.6 % (45-73); Platelet Count 287 X10*3/uL (160-400); Red Blood Count 4.18 X10*6/uL (4.20-5.50); Red Cell Distribution Width 15.3 % (11.0-16.0); White Blood Count 10.4 X10*3/uL (4.8-10.8)
[2024-07-25 11:39] LABS: Alanine Aminotransferase 12 U/L (0-31); Albumin Level 4.1 g/dL (3.5-5.0); Alkaline Phosphatase 156 U/L (39-117); Anion Gap 13 (12-20); Aspartate Amino Transferase 30 U/L (5-31); Bilirubin Total 0.8 mg/dL (0.0-1.0); Blood Urea Nitrogen 13 mg/dL (9-16); C Reactive Protein 0.31 mg/dL (< or = 0.50); Calcium 9.4 mg/dL (8.4-10.2); Carbon Dioxide 23 mmol/L (22-29); Chloride 109 mmol/L (96-108); Estimated Glomerular Filt Rate > 60; Glucose Random 90 mg/dL (60-115); Sodium 141 mmol/L (135-145); Total Protein 7.2 g/dL (6.5-8.0)
[2024-07-25 11:46] LABS: Ferritin 31 ng/mL (10-250)
[2024-07-25 11:52] LABS: Folate 10.5 ng/mL (> or = 4.0); Vitamin B12 402 pg/mL (200-900)
[2024-07-26 09:24] LABS: IgA 265 mg/dL (47-310); IgG 696 mg/dL (600-1640); IgM 105 mg/dL (50-300)
[2024-07-26 15:28] LABS: Immunoglobulin G Subclass 1 366 mg/dL (382-929); Immunoglobulin G Subclass 2 245 mg/dL (241-700); Immunoglobulin G Subclass 3 68 mg/dL (22-178); Immunoglobulin G Total 695 mg/dL (600-1640)
== END 2024-07-25 09:01 | disposition home or self-care (01) ==
LOC: HO.LAB 09:00
PROVIDERS: PCP Internal Medicine; Visit Provider Internal Medicine Gastroenterology
DX: D64.9 Anemia, unspecified (principal); R59.1 Generalized enlarged lymph nodes; K75.81 Nonalcoholic steatohepatitis (NASH)
CPT/HCPCS: 36415; 80053; 82550; 82607; 82728; 82746; 82784; 85025; 86140

== ENCOUNTER 2024-07-25 09:00 | Outpatient (AMB) | payer BC, SELFPAY ==
[2024-07-21 08:49] VITALS: BP 100/50; BP 114/58; BP 156/54; BMI 40.1
--- NOTE | 2024-07-25 09:03 | MHC.OFFVIS ---
Vital Signs 07/25/24 09:07 Height 5 ft 2 in Weight 235 lb 14.314 oz BMI 43.1 BP 108/59 L Blood Pressure Location Lt radial Position Sitting Pulse 75 Intake Visit Reasons: Follow up r/s 04/18/24 Intake Note: Rose Marie presents in the office as a follow up. CC: She states that today she is feeling good and not having any concerns. 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 She had MRe with transmural enhancement of loop of small bowel, fecal lactoferrin was neg Colonoscopy 07/30/21: polyps internal hemorrhoids mild ileitis BX with tubular adenoma, other bx were neg EGD: 01/2022 Findings: Larynx:normal Esophagus: GE junction at 38 cm, diaphragm hiatus at 38 cm, partial schatzki ring, bx taken from GEJ and random esophagus Stomach: Patchy gastric erythema, altered anatomy with L shaped stomach with hx of sleeve gastrectomy. Biopsies were obtained. Grade 2 flap valve on retroflexed examination of the cardia. Duodenum: Normal bulb and descending duodenum, bx taken Intervention: Biopsies as noted above Impression/Findings: partial schatzki gastritis MRe: 06/2022: no active inflammation She did see Cardiology, and had stent placed after diagnostic cath, ECHO with she had bx of lung and LN due to sx and path is non diagnostic PET scan 01/23/23 physiological uptake in Gi tract, uptake in lungs--left pleura US with steatosis ====== EGD/colonsocopy 01/30: Endoscopy Findings: schatzki gastritis balloon dilation- Colonoscopy Findings: internal hemorrhoids Path: safia esophagitis ==== INTERIM: she has severe pneumonia Mar 2024 pulled through and recovered bowels are good still taking apriso, unsure if helping still taking ursodiol she takes morphine maybe 3 times/week EXAM: GENERAL: The patient is well developed and nontoxic. VITAL SIGNS:see workflow HEENT: Nonicteric sclerae, PERRLA, EOMI. Oropharynx clear. Moist mucous membranes. Conjunctivae appear well perfused. No thyroid mass. CHEST: Chest wall is nontender. HEART: Regular rate and rhythm with soft diastolic murmur LUNGS: Clear to auscultation bilaterally. ABDOMEN: Soft, positive bowel sounds, nontender, no organomegaly.no flank tenderness SKIN: No rash, no excessive bruising, petechiae, or purpura. NEUROLOGIC: Cranial nerves II-XII intact without motor/sensory deficit. A/P: 1/ Abn LFt, raised lak phos with ps macro form, steatosis as well, on ursodiol 2/ GERD--controlled 3/ abn bowel habit, long standing, Imaging and colonoscopy with enteritis, ileitis- 4/ hx of polyps 5/ abn shaped stomach from sleeve gastrectomy--possible dysphagia from GERD 6/ abn TFT 7/ recovering from severe pneumonia, maybe due to prior XRT to chest and fibrosis PLAN: 1/ cont with apriso for the moment, maybe stop if fecal lacotferrin is neg 2/ recheck LFT 3. repet colo in few years 4/ check Igg levels 5/ z pack if needed sent [facility] Medical History History of mantle field radiation therapy (~1992) Environmental allergies History of shingles CAD (coronary artery disease) Stented coronary artery (~2022) Hyperlipidemia Obesity Mitral stenosis Anxiety and depression Tubular adenoma of colon History of Hodgkin's lymphoma (~1992) Radiation-induced heart disease Aortic stenosis Asthma Hypothyroid Hepatic steatosis GERD (gastroesophageal reflux disease) Herpes Surgical History History of lung surgery History of lymph node excision (03/12/23) History of lung biopsy (02/11/23) History of repair of hiatal hernia (~2018) History of thoracentesis (~2018) History of ankle surgery History of section History of colonoscopy History of heart artery stent (~2022) History of arthroscopy of right shoulder History of sleeve gastrectomy (~2017) History of esophagogastroduodenoscopy (EGD) History of cholecystectomy Family History Mother Colon cancer Father Hypertension Prostate cancer Son Diabetes Daughter Autism Social History Household Members: Spouse and Family Housing: House Are you a primary home care scheduler to a significant other at home: No Do you presently have visiting nurse or other home services: No Alcohol intake: current Alcohol intake frequency: holidays/special occasions only Patient Tobacco Use Status: Never used Tobacco e-Cigarette/Vaping Use: Never Used Substance Use Type: Marijuana service: No 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: employed 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 Today D64.9 - Anemia, unspecified, K51.50 - Left sided colitis without complications C Reactive Protein Today D64.9 - Anemia, unspecified Creatine Kinase Total Today D64.9 - Anemia, unspecified Immunoglobulin G Subclasses Today D64.9 - Anemia, unspecified, R59.1 - Generalized enlarged lymph nodes Immunoglobulins,IgG IgA IgM Today D64.9 - Anemia, unspecified, R59.1 - Generalized enlarged lymph nodes Comprehensive Met. Panel Today D64.9 - Anemia, unspecified, K75.81 - Nonalcoholic steatohepatitis (BENJAMIN) Ferritin Today D64.9 - Anemia, unspecified Vitamin B12 and Folate Today D64.9 - Anemia, unspecified Medications: New azithromycin For 250 mg dose pack: take 500 mg today (day 1), then 250 mg for 4 days (days 2-5) PO 6 tabs 0RF Coding Level of Care Code Est Pt Level 4 (72957) Diagnoses Anemia D64.9
[2024-07-25 09:07] VITALS: BP 108/59; PULSE 75; BMI 43.1
--- OUTSIDE RECORDS SUMMARY | 2024-07-25 09:13 | XMS_ITS | Encounter Summary ---
Author Organization [facility] Address [address] [place] [address] Care Team Providers Care Communication Center Coordinator Name Role Phone Huong Johnson MD Primary Care Provider Encounter Details Date Type Department Care Team (Late st Contact Info) Description 03/22/2024 Lab Requisition [facility] - Main Lab [address] [facility] [place] [address] Darien Smith MD [address] [place] [address] [address] [place], [address] Anemia, unspecified Social History Tobacco Use [...] care for your loved ones. For example, assistant child care teacher or elderly care for an [...] mmol/L LAB CHEMISTRY METHOD 03/23/2024 10:11 AM [facility] Potassium 4.7 3.5 - 5.5 mmol/L LAB CHEMISTRY METHOD 03/23/2024 10:11 AM [facility] Chloride 109 96 - 110 mmol/L LAB CHEMISTRY METHOD 03/23/2024 10:11 AM [facility] CO2 28 21 - 32 mmol/L LAB CHEMISTRY METHOD 03/23/2024 10:11 AM [facility] Anion Gap 4 3 - 11 LAB CHEMISTRY METHOD 03/23/2024 10:11 AM [facility] Glucose 86 70 - 100 mg/dL LAB CHEMISTRY METHOD 03/23/2024 10:11 AM [facility] BUN 6 5 - 25 mg/dL LAB CHEMISTRY METHOD 03/23/2024 10:11 AM [facility] Creatinine 0.66 0.50 - 1.10 mg/dL LAB CHEMISTRY METHOD 03/23/2024 10:11 AM [facility] eGFR 103 >=60 mL/min/1. 73m2 LAB CHEMISTRY METHOD 03/23/2024 10:11 AM [facility] Comment:Calculation based on the??Chronic Kidney Disease Epidemiology Collaboration (CKD-EPI) equation refit??without adjustment for race. BUN/Creatinine Ratio 9.1 LAB CHEMISTRY METHOD 03/23/2024 10:11 AM [facility] Calcium 8.7 8.5 - 10.5 mg/dL LAB CHEMISTRY METHOD 03/23/2024 10:11 AM [facility] Blood Venous blood specimen / Unknown Venipuncture / Unknown 03/23/2024 4:56 AM EST 03/23/2024 8:44 AM EST us Darien Smith MD LAB BLOOD ORDERABLES Final Resul t [facility] [address] [place] [address], * (ABNORMAL) Complete blood count (03/23/2024 4:56 AM EST) [facility] WBC 8.2 4.8 - 10.8 K/mcL LAB HEMETOLOGY METHOD 03/23/2024 9:56 AM [facility] RBC 3.50(L) 3.80 - 4.80 M/mcL LAB HEMETOLOGY METHOD 03/23/2024 9:56 AM [facility] Hemoglobin 10.0(L) 11.5 - 16.0 g/dL LAB HEMETOLOGY METHOD 03/23/2024 9:56 AM [facility] Hematocrit 32.2(L) 35.0 - 47.0 % LAB HEMETOLOGY METHOD 03/23/2024 9:56 AM [facility] MCV 91.0 79.0 - 98.0 FL LAB HEMETOLOGY METHOD 03/23/2024 9:56 AM [facility] MCH 28.2 27.0 - 32.0 pcg LAB HEMETOLOGY METHOD 03/23/2024 9:56 AM [facility] MCHC 31.1(L) 32.0 - 37.0 g/dL LAB HEMETOLOGY METHOD 03/23/2024 9:56 AM [facility] RDW 15.5(H) 11.0 - 15.0 % LAB HEMETOLOGY METHOD 03/23/2024 9:56 AM [facility] Platelets 480(H) 130 - 400 K/mcL LAB HEMETOLOGY METHOD 03/23/2024 9:56 AM [facility] MPV 11.4(H) 7.0 - 11.0 FL LAB HEMETOLOGY METHOD 03/23/2024 9:56 AM [facility] NRBC 0.0 <1.0 % LAB HEMETOLOGY METHOD 03/23/2024 9:56 AM EST [facility] NRBC Absolute 0.00 <0.10 K/mcL LAB HEMETOLOGY METHOD 03/23/2024 9:56 AM EST [facility] Blood Venous blood specimen / Unknown Venipuncture / Unknown 03/23/2024 4:56 AM EST 03/23/2024 8:44 AM EST us Darien Smith MD LAB BLOOD ORDERABLES Final Resul t [facility] [address] [place] [address], documented in this encounter Visit Diagnoses Diagnosis Anemia, unspecified documented in this encounter Care Teams Communication Center Coordinator Relationship Specialty Start Date End Date Huong Johnson MD [address] [place] [address] PCP - General Internal Medicine 03/03/24 documented as of this encounter
--- OUTSIDE RECORDS SUMMARY | 2024-07-25 09:13 | XMS_ITS | Continuity of Care Document ---
Author Organization [facility] Address [address] [facility], [address] d Floor, [address] [place] [address]- Care Team Providers Care Strapper And Buffer Name Role Phone Alex MCCONNELL, Huong Esteves Primary Care Physician [phone] [place] [facility] [place]/24 [facility] [address] [facility] [address]rd Floor, [address] [place] [id number] Encounter Type: Triage Allergies, Adverse [...] vaccine, inactivated 6 12/30/11 Gi dayana SARS-CoV-2(COVID-19)mRNA-LNP vac([id number]) 12/26/23 Recorded tetanus/diphtheria/pertussis, acel(Tdap) 7 02/16/23 Given tetanus/diphtheria/pertussis, acel(Tdap) 03/01/12 Given [id number] 12y+ bivalent booster vax 03/07/22 Recorded SARS-CoV-2 mRNA ([id number]) vax 09/08/21 Recorded SARS-CoV-2 (COVID-19) mRNA BNT-162b2 [...] 11/03/16 Recorde d 1Result Comment: Done at [facility] 2Result Comment: [facility] [id number] 3Result Comment: [facility] [id number] 4Result Comment: [12/01/2016] [facility] 5Result Comment: [02/14/2013] eh 6Admin Note: work 7Result Comment: [id number] 8Result Comment: Covid 19 9Result Comment: Covid 19 10Result Comment: Done at [facility] 11Result Comment: [12/01/2016] [facility] Medications albuterol CFC free 90 mcg/inh inhalation aerosol 2, puffs, Inhalation, Every 6 hours, PRN, # 8.5 Gm, Refills 2, Tot. Refills 2, Maintenance, 05/17/2409:25:00 AM EDT, Inhaler, Route to Pharmacy Electronically, NCPDP_[id number], [facility] #[id number], 157.4, cm, 05/18/23 9:45:00 EDT, Height, 93.9, kg, 05/18/23 9:45:00 EDT, Dry Weight Start Date: 3/11/24 Stop Date: 08/16/23 Status: Ordered Quantity: 8.5 [...] 0 Refills, Soft Stop, 06/15/24 3:50:00PM EDT, [facility], Pt never started this medication [...] Refills, Soft Stop, 06/15/24 3:51:00 PM EDT, [facility], Partial fill upon patient request [...] Refills, Maintenance, 04/10/24 12:27:00 PM EST, Tablet, [facility] #[id number], dose reduced from 137 to 125 mcg, [...] Refills, Maintenance, 06/01/24 3:18:00 PM EDT, Tablet, [facility] #[id number], Partial fill upon patient request if the [...] Date: 12/07/09 Status: Ordered Repeat number: 1 morphine 15 mg oral tablet, immediate release 1 tablet = 15 mg, By Mouth, Every 6 hours, PRN Pain , Severe, partial fill ok dx-pleuritic pain from pleural effusion, # 20 tablet, 0 Refills, Acute 07/31/24 3:13:00 PM EDT, 07/01/24 3:13:00 PM EDT, Tablet, [facility] #[id number], 157.4, cm, 06/15/24 15:14:00 EDT, Height, 105.6, kg, 06/14/24 13:00:00 EDT, Dry Weight Start Date: 07/01/24 Stop Date: 07/31/24 Status: Ordered Quantity: 20.0 Unit: tablet Repeat number: 1 nortriptyline 10 mg oral capsule See Instructions, TAKE 1 CAPSULE BY MOUTH DAILY AT BEDTIME, # 90 capsule, Refills 3, Tot. Refills 3, Maintenance, 11/28/23 10:32:00 PM EDT, Instructions Replace Required Details, Route to Pharmacy Electronically, [facility] #[id number], 157.4, cm, 11/05/23 12:44:00 EDT, Height, 93.5, [...] 1 Refills, Maintenance, 06/14/24 2:14:00 PM EDT, [id number], dose increased from 125 mg, 157.4, cm, [...] Team Personnel Name: Huong Johnson MD Position: [facility] Physician - Primary Care Member Role: PCP Address: [address] [place] [address] Adult & Pediatric [address] Telecom: Name: Deann Sethi RN Position: [facility] RN Member Role: Primary Care Nurse Name: Ernestine Norris RN Position: [facility] RN Member Role: Primary Care Nurse Name: Mariela Wild MD Position: [facility] Physician - Endocrinology Member Role: Lifetime Consulting Physician Care Team Related Persons Name: SIOMARA HAYDEN Insurance Providers Guarantor name: PILO [facility]ly [facility] Plan Information #: 1 Payer: BL[employer] ELECT Member Number: NA Policy Number: NA Group Number: NA
--- OUTSIDE RECORDS SUMMARY | 2024-07-25 09:13 | XMS_ITS | Continuity of Care Document ---
Author Organization [facility] Address [address] [facility], 3r d Floor, [address] [place] [address]- Care Team Providers Care Campus Director Name Role Phone Alex MCCONNELL, Huong Esteves Primary Care Physician [phone] [place] [facility] [place]): [place] 07/[place]/24 [facility] [address] [facility] 3rd Floor, [address] [place] [id number] Encounter Type: Triage Allergies, Adverse [...] 10/22/15 Abel rded influenza virus vaccine, inactivated 12/07/12 Re corded influenza virus vaccine, inactivated 6 12/30/11 Gi dayana SARS-CoV-2(COVID-19)mRNA-LNP vac([id number]) 12/26/23 Recorded tetanus/diphtheria/pertussis, acel(Tdap) 7 02/16/23 Given tetanus/diphtheria/pertussis, acel(Tdap) 03/01/12 Given [id number] 12y+ bivalent booster vax 03/07/22 Recorded SARS-CoV-2 mRNA (vxvmcsp-ndti-odsig) vax 09/08/21 Recorded SARS-CoV-2 (COVID-19) mRNA BNT-162b2 [...] 11/03/16 Recorde d 1Result Comment: Done at [facility] 2Result Comment: [facility] [id number] 3Result Comment: [facility] [id number] 4Result Comment: [12/01/2016] [facility] 5Result Comment: [02/14/2013] eh 6Admin Note: work 7Result Comment: [id number] 8Result Comment: Covid 19 9Result Comment: Covid 19 10Result Comment: Done at [facility] 11Result Comment: [12/01/2016] [facility] Medications albuterol CFC free 90 mcg/inh inhalation aerosol 2, puffs, Inhalation, Every 6 hours, PRN, # 8.5 Gm, Refills 2, Tot. Refills 2, Maintenance, 05/17/2409:25:00 AM EDT, Inhaler, Route to Pharmacy Electronically, NCPDP_ID-[id number], [facility] #[id number], 157.4, cm, 05/18/23 9:45:00 EDT, Height, 93.9, [...] 0 Refills, Soft Stop, 06/15/24 3:50:00PM EDT, [facility], Pt never started this medication [...] Refills, Soft Stop, 06/15/24 3:51:00 PM EDT, [facility], Partial fill upon patient request [...] Refills, Maintenance, 04/10/24 12:27:00 PM EST, Tablet, [facility] #[id number], dose reduced from 137 to 125 mcg, [...] Refills, Maintenance, 06/01/24 3:18:00 PM EDT, Tablet, [facility] #[id number], Partial fill upon patient request if the [...] PM EDT, 07/01/24 3:13:00 PM EDT, Tablet, [facility] #[id number], 157.4, cm, 06/15/24 15:14:00 EDT, Height, 105.6, [...] Replace Required Details, Route to Pharmacy Electronically, [facility] #[id number], 157.4, cm, 11/05/23 12:44:00 EDT, Height, 93.5, [...] 1 Refills, Maintenance, 06/14/24 2:14:00 PM EDT, [id number], dose increased from 125 mg, 157.4, cm, [...] Team Personnel Name: Huong Johnson MD Position: [facility] Physician - Primary Care Member Role: PCP Address: [address] [place] [address] Adult & Pediatric [address] Telecom: Name: Deann Sethi RN Position: [facility] RN Member Role: Primary Care Nurse Name: Ernestine Norris RN Position: [facility] RN Member Role: Primary Care Nurse Name: Mariela Wild MD Position: [facility] Physician - Endocrinology Member Role: Lifetime Consulting Physician Name: Nahun Garcia RN Position: [facility] RN Member Role: Primary Care Nurse Care Team Related Persons Name: JACKELYN SIOMARA Insurance Providers Guarantor name: PILO DEXTER Health Plan Information #: 1 Payer: [employer] ELECT Member Number: NA Policy Number: NA Group Number: NA
--- OUTSIDE RECORDS SUMMARY | 2024-07-25 09:13 | XMS_ITS | Encounter Summary ---
Author Organization [facility] Address [address] [place] [address] Care Team Providers Care Director Of Student Financial Services Name Role Phone Huong Johnson MD Primary Care Provider [phone] Encounter Details Date Type Department Care Team (Late st Contact Info) Description 04/05/2024 Lab Requisition [facility] - Main Lab [address] [facility] [place] [address] Darien Smith MD [address] [place] [address] [address] [place], [address] Anemia, unspecified Social History Tobacco Use [...] for your loved ones. For example, child protective investigator or elderly care for an older adult? [...] unspecified documented in this encounter Care Teams Director Of Student Financial Services Relationship Specialty Start Date End Date Huong Johnson MD [address] [place] [address] PCP - General Internal Medicine 03/03/24 documented as of this encounter
--- OUTSIDE RECORDS SUMMARY | 2024-07-25 09:13 | XMS_ITS | Encounter Summary ---
Author Organization [facility] Address [address] [place] [address] Care Team Providers Care Flooring Mechanic Name Role Phone Huong Johnson MD Primary Care Provider [phone] Encounter Details Date Type Department Care Team (Late st Contact Info) Description 03/29/2024 Lab Requisition [facility] - Main Lab [address] [facility] [place] [address] Darien Smith MD [address] [place] [address] [address] [place], [address] Anemia, unspecified Social History Tobacco Use [...] for your loved ones. For example, child abuse worker or elderly care for an older [...] mmol/L LAB CHEMISTRY METHOD 03/30/2024 11:55 AM [facility] Potassium 4.7 3.5 - 5.5 mmol/L LAB CHEMISTRY METHOD 03/30/2024 11:55 AM [facility] Comment:Hemolysis present Chloride 112(H) 96 - 110 mmol/L LAB CHEMISTRY METHOD 03/30/2024 11:55 AM [facility] CO2 26 21 - 32 mmol/L LAB CHEMISTRY METHOD 03/30/2024 11:55 AM [facility] Anion Gap 5 3 - 11 LAB CHEMISTRY METHOD 03/30/2024 11:55 AM [facility] Glucose 70 70 - 100 mg/dL LAB CHEMISTRY METHOD 03/30/2024 11:55 AM [facility] BUN 7 5 - 25 mg/dL LAB CHEMISTRY METHOD 03/30/2024 11:55 AM [facility] Creatinine 0.46(L) 0.50 - 1.10 mg/dL LAB CHEMISTRY METHOD 03/30/2024 11:55 AM [facility] eGFR 112 >=60 mL/min/1. 73m2 LAB CHEMISTRY METHOD 03/30/2024 11:55 AM [facility] Comment:Calculation based on the??Chronic Kidney Disease Epidemiology Collaboration (CKD-EPI) equation refit??without adjustment for race. BUN/Creatinine Ratio 15.2 LAB CHEMISTRY METHOD 03/30/2024 11:55 AM [facility] Calcium 8.7 8.5 - 10.5 mg/dL LAB CHEMISTRY METHOD 03/30/2024 11:55 AM [facility] Blood Venous blood specimen / Unknown Venipuncture / Unknown 03/30/2024 5:10 AM EST 03/30/2024 10:53 AM EST us Darien Smith MD LAB BLOOD ORDERABLES Final Resul t [facility] [address] [place] [address], * (ABNORMAL) Complete blood count (03/30/2024 5:10 AM EST) [facility] Signature WBC 6.8 4.8 - 10.8 K/mcL LAB HEMETOLOGY METHOD 03/30/2024 11:[address] [facility] RBC 3.60(L) 3.80 - 4.80 M/mcL LAB HEMETOLOGY METHOD 03/30/2024 11:54 AM [facility] Hemoglobin 10.2(L) 11.5 - 16.0 g/dL LAB HEMETOLOGY METHOD 03/30/2024 11:54 AM [facility] Hematocrit 33.9(L) 35.0 - 47.0 % LAB HEMETOLOGY METHOD 03/30/2024 11:54 AM [facility] MCV 93.1 79.0 - 98.0 FL LAB HEMETOLOGY METHOD 03/30/2024 11:54 AM [facility] MCH 28.0 27.0 - 32.0 pcg LAB HEMETOLOGY METHOD 03/30/2024 11:54 AM [facility] MCHC 30.1(L) 32.0 - 37.0 g/dL LAB HEMETOLOGY METHOD 03/30/2024 11:54 AM [facility] RDW 15.9(H) 11.0 - 15.0 % LAB HEMETOLOGY METHOD 03/30/2024 11:54 AM [facility] Platelets 193 130 - 400 K/mcL LAB HEMETOLOGY METHOD 03/30/2024 11:54 AM [facility] MPV 12.1(H) 7.0 - 11.0 FL LAB HEMETOLOGY METHOD 03/30/2024 11:54 AM EST [facility] NRBC 0.0 <1.0 % LAB HEMETOLOGY METHOD 03/30/2024 11:[address] [facility] NRBC Absolute 0.00 <0.10 K/mcL LAB HEMETOLOGY METHOD 03/30/2024 11:[address] [facility] Blood Venous blood specimen / Unknown Venipuncture / Unknown 03/30/2024 5:10 AM EST 03/30/2024 10:53 AM EST us Darien Smith MD LAB BLOOD ORDERABLES Final Resul t [facility] [address] [place] [address], documented in this encounter Visit Diagnoses Diagnosis Anemia, unspecified documented in this encounter Care Teams Flooring Mechanic Relationship Specialty Start Date End Date Huong Johnson MD [address] [place] [address] PCP - General Internal Medicine 03/03/24 documented as of this encounter
--- OUTSIDE RECORDS SUMMARY | 2024-07-25 09:13 | XMS_ITS | Clinical Summary ---
Author Organization [facility] Address [address] [place] [address] Phone Care Team Providers Care Lumber Press Operator Name Role Phone Huong Johnson MD Primary Care Provider [phone] Allergies Active Allergy Reactions Criticality Noted Date [...] negative for cancer including a left thoracotomy [place]. I had a long discussion with her [...] PM EDT Office Visit Thoracic Surgery - [place] [address] [facility] [address] [place] [phone] Simone Harris MD Pulmonary nodule (Primary Dx); Aspiration pneumonia of right middle lobe, unspecified aspiration pneumonia type (CMS/HCC V24, CMS/HCC V28) 06/08/2024 3:00 PM EDT - 06/08/2024 11:59 PM EDT Hospital Encounter [facility] CT Scan [address] [place] [phone] Pulmonary nodule; Aspiration pneumonia of right middle lobe, unspecified aspiration pneumonia type (CMS/HCC V24, CMS/HCC V28) Discharge Disposition: Home or Self Care 05/12/2024 2:00 PM EST Consult Thoracic Surgery - [address] [phone] Simone Harris MD Pulmonary nodule (Primary Dx); Aspiration pneumonia of right middle lobe, unspecified aspiration pneumonia type (CMS/HCC V24, CMS/HCC V28); Recurrent pleural effusion on left from Last 3 Months Medical History Medical [...] Vaccines (2 of 2) 12/05/2019 10/10/2019, 04/2019 Cholesterol Screening (Lipid Panel) 02/29/2024 Colorectal Cancer [...] Signed Date: 06/10/2024 17:17 ET Workstation ID: [id number] Transcribed By: Self Edit Transcribed Date: 06/10/2024 [...] Signed Date: 06/10/2024 17:17 ET Workstation ID: [id number] Transcribed By: Self Edit Transcribed Date: 06/10/2024 16:50 ET Simone Harris MD [facility] CT PROCEDURES Final Result * (ABNORMAL) Basic metabolic panel (03/30/2024 5:10 AM EST) Sodium 143 133 - 145 mmol/L LAB CHEMISTRY METHOD 03/30/2024 11:55 AM EST [facility] Potassium 4.7 3.5 - 5.5 mmol/L LAB CHEMISTRY METHOD 03/30/2024 11:55 AM EST [facility] Comment:Hemolysis present Chloride 112(H) 96 - 110 mmol/L LAB CHEMISTRY METHOD 03/30/2024 11:55 AM EST [facility] CO2 26 21 [...] MD LAB BLOOD ORDERABLES Final Resul t [facility] [address] [place] [address], from Last 3 Months or Most Recently Relevant to Health Maintenance Insurance [facility] Advance Directives Documents on File Type Date Recorded Patient Internal Grinder Set Up Operator Expl anation Advance Directives and Living Will [...] currently active code status orders. Care Teams Lumber Press Operator Relationship Specialty Start Date End Date Huong Johnson MD [address] [place] [address] PCP - General Internal Medicine 03/03/24
--- OUTSIDE RECORDS SUMMARY | 2024-07-25 09:13 | XMS_ITS | Encounter Summary ---
Author Organization [facility] Address [address] [place] [address] Care Team Providers Care Line And Frame Poler Name Role Phone Huong Johnson MD Primary Care Provider Encounter Details Date Type Department Care Team (Late st Contact Info) Description 03/18/[address] [facility] - Main Lab [address] [facility] [place] [address] Darien Smith MD [address] [place] [address] [address] [place], [phone] Anemia, unspecified Social History Tobacco Use [...] your loved ones. For example, child care development specialist or elderly care for an [...] LAB CHEMISTRY METHOD 03/18/2024 12:02 PM EST [facility] Blood Venous blood specimen / Unknown Venipuncture / Unknown 03/18/2024 6:30 AM EST 03/18/2024 10:39 AM EST us Darien Smith MD LAB BLOOD ORDERABLES Final Resul t Performing Organization Address City/[facility]/ZIP Co de Phone Number [facility] [address] [place] [address], [place] [phone] * (ABNORMAL) Thyroid stimulating hormone (03/18/2024 6:30 AM EST) [facility] TSH 5.29(H) 0.40 - 4.00 mcIU/mL LAB CHEMISTRY METHOD 03/18/2024 12:02 PM EST [facility] Blood Venous blood specimen / Unknown Venipuncture / Unknown 03/18/2024 6:30 AM EST 03/18/2024 10:39 AM EST us Darien Smith MD LAB BLOOD ORDERABLES Final Resul t [facility] [address] [place] [address], [place] [phone] * (ABNORMAL) Comprehensive metabolic panel (03/18/2024 6:30 AM EST) [facility] Sodium 140 133 - 145 mmol/L LAB CHEMISTRY METHOD 03/18/2024 12:01 PM EST [facility] Potassium 5.5 3.5 - 5.5 mmol/L LAB CHEMISTRY METHOD 03/18/2024 12:01 PM [facility] Chloride 107 96 - 110 mmol/L LAB CHEMISTRY METHOD 03/18/2024 12:01 PM [facility] CO2 26 21 - 32 mmol/L LAB CHEMISTRY METHOD 03/18/2024 12:01 PM [facility] Anion Gap 7 3 - 11 LAB CHEMISTRY METHOD 03/18/2024 12:01 PM [facility] Glucose 75 70 - 100 mg/dL LAB CHEMISTRY METHOD 03/18/2024 12:01 PM [facility] BUN 9 5 - 25 mg/dL LAB CHEMISTRY METHOD 03/18/2024 12:01 PM [facility] Creatinine 0.78 0.50 - 1.10 mg/dL LAB CHEMISTRY METHOD 03/18/2024 12:01 PM [facility] eGFR 89 >=60 mL/min/1. 73m2 LAB CHEMISTRY METHOD 03/18/2024 12:01 PM [facility] Comment:Calculation based on the??Chronic Kidney Disease Epidemiology Collaboration (CKD-EPI) equation refit??without adjustment for race. BUN/Creatinine Ratio 11.5 LAB CHEMISTRY METHOD 03/18/2024 12:01 PM [facility] Calcium 8.6 8.5 - 10.5 mg/dL LAB CHEMISTRY METHOD 03/18/2024 12:01 [facility] AST (SGOT) 22 10 - 42 unit/L LAB CHEMISTRY METHOD 03/18/2024 12:01 [facility] ALT (SGPT) 14 10 - 60 unit/L LAB CHEMISTRY METHOD 03/18/2024 12:01 PM [facility] Alkaline Phosphatase 136(H) 42 - 121 unit/L LAB CHEMISTRY METHOD 03/18/2024 12:01 PM [facility] Total Protein 5.7(L) 6.0 - 8.0 g/dL LAB CHEMISTRY METHOD 03/18/2024 12:01 PM [facility] Albumin 2.6(L) 3.2 - 5.0 g/dL LAB CHEMISTRY METHOD 03/18/2024 12:01 PM [facility] Total Bilirubin 0.5 0.0 - 1.4 mg/dL LAB CHEMISTRY METHOD 03/18/2024 12:01 PM [facility] Blood Venous blood specimen / Unknown Venipuncture / Unknown 03/18/2024 6:30 AM EST 03/18/2024 10:39 AM EST us Darien Smith MD LAB BLOOD ORDERABLES Final Resul t [facility] [address] [place] [address], [place] [phone] * (ABNORMAL) Complete blood count (03/18/2024 6:30 AM EST) WBC 13.0(H) 4.8 - 10.8 K/mcL LAB HEMETOLOGY METHOD 03/18/2024 11:21 AM [facility] RBC 3.70(L) 3.80 - 4.80 M/mcL LAB HEMETOLOGY METHOD 03/18/2024 11:21 AM [facility] Hemoglobin 10.3(L) 11.5 - 16.0 g/dL LAB HEMETOLOGY METHOD 03/18/2024 11:21 AM [facility] Hematocrit 33.4(L) 35.0 - 47.0 % LAB HEMETOLOGY METHOD 03/18/2024 11:21 AM [facility] MCV 90.8 79.0 - 98.0 FL LAB HEMETOLOGY METHOD 03/18/2024 11:21 AM [facility] MCH 28.0 27.0 - 32.0 pcg LAB HEMETOLOGY METHOD 03/18/2024 11:21 AM [facility] MCHC 30.8(L) 32.0 - 37.0 g/dL LAB HEMETOLOGY METHOD 03/18/2024 11:21 AM EST [facility] RDW 15.1(H) 11.0 - 15.0 % LAB HEMETOLOGY METHOD 03/18/2024 11:21 AM [facility] Platelets 608(H) 130 - 400 K/mcL LAB HEMETOLOGY METHOD 03/18/2024 11:21 AM [facility] MPV 11.2(H) 7.0 - 11.0 FL LAB HEMETOLOGY METHOD 03/18/2024 11:21 AM [facility] NRBC 0.0 <1.0 % LAB HEMETOLOGY METHOD 03/18/2024 11:21 AM [facility] NRBC Absolute 0.00 <0.10 K/mcL LAB HEMETOLOGY METHOD 03/18/2024 11:21 AM [facility] Blood Venous blood specimen / Unknown Venipuncture / Unknown 03/18/2024 6:30 AM EST 03/18/2024 10:39 AM EST us Darien Smith MD LAB BLOOD ORDERABLES Final Resul t [facility] [address] [place] [address], documented in this encounter Visit Diagnoses Diagnosis Anemia, unspecified documented in this encounter Care Teams Line And Frame Poler Relationship Specialty Start Date End Date Huong Johnson MD [address] [place] [address] PCP - General Internal Medicine 03/03/24 documented as of this encounter
--- OUTSIDE RECORDS SUMMARY | 2024-07-25 09:13 | XMS_ITS | Data Portability ---
Author Organization [facility] [employer] [facility], Main Office Address [address], [address] [place] [address] Care Team Providers Care Seconds Grader Name Role Phone [facility] [...] Time Liver function tests outside reference range [id number] Active [address] [facility] [address], [address], [place], [address], [facility] [employer] [facility] 5 07:37:37 Allergic rhinitis 43895944 Active [address] [facility] [address], [address], [place], [address], [facility] [employer] 5 07:37:46 Anxiety 41465434 Active [address] [facility] [address], [address], [place], [address], [facility] [employer] 5 07:37:54 Asthma 431133615 Active [address] [facility] [address], [address], [place], [address], [facility] 5 07:38:02 Gastroesophag eal reflux disease 520751590 Active [address] [facility] [address], [address], [place], [address], [facility] 5 07:38:10 History of Hodgkin lymphoma 328679091 Active [address] [facility] [address], [address], [place], [address], [facility] 5 07:38:45 Migraine 82300048 Active [address] [facility] [address], [address], [place], [address], [facility] 5 07:38:53 Mood disorder 79670187 Active [address] [facility] [address], [address], [place], [address], [facility] 5 07:39:02 Obstructive sleep apnea syndrome 85631393 Active [address] [facility] [address], [address], [place], [address], [facility] 5 07:39:13 Hypothyroidis m 31304370 Active [address] [facility] [address], [address], [place], [address], [facility] 5 07:39:22 Obesity 050961623 Active [address] [facility] [address], [address], [place], [address], [facility] 5 07:39:38 Adenomatous polyp of colon 066692145 Active [address] [facility] [address], [address], [place], [address], [facility] 5 07:40:10 Coronary arteriosclero sis 62642386 Active [address] [facility] [address], [address], [place], [address], [facility] 5 07:45:49 Acute respiratory failure 93853549 Active [address] [facility] [address], [address], [place], [address], [facility] 5 07:46:00 Pneumonia 228333172 Active [address] [facility] [address], [address], [place], [address], [facility] 5 07:46:08 Pleural effusion 36560609 Active [address] [facility] [address], [address], [place], [address], [facility] 5 07:46:27 Atypical chest pain 817648891 Active 2024 [facility] [address] [facility], [address], [place], [address], [facility] 5 08:00:44 Enteritis of intestine 1503750284 Active 2024 [facility] [address] [facility], [address], [place], [address], [facility] 5 08:01:43 Anterior chest wall pain 950299248 Active 2024 Courtney Hilton MD [address] [place] [address], [address], [place], [address], [facility] 5 13:31:52 Ileitis 06470587 Active 2024 Courtney Hilton MD [address] [place] [address] St, [address], [place], [address], [facility] 5 14:10:16 Insulin resistance 106609209 Active 2024 Courtney Hilton MD [address], [address], [place], [address], [facility] 5 14:16:36 Anemia 643813296 Active 2024 Courtney Hilton MD [address] [facility], [address], [place], [address], [facility] [employer] 5 14:26:33 Problem Notes None recorded. Medical Equipment None Reported. Allergies Allergen ID Allergen Name Allergen Category Reaction Reaction Severity Criticality Documentation Date Start Date Code Code System Note Provider Name and Address Organization Details Recorded Time 36988 oxycodone medicatio n itching rash Not available Not available high 03/16/20242023 7804 RxNorm Courtney Hilton MD [address] [facility], [address], [place], [address], [facility] [employer] [facility] 5 12:01:35 26192 Gastrogra fin medicatio n Not available Not available Not available 03/16/2024 67205 5 RxNorm [facility] [address] [facility], [address], [place], [address], [facility] [employer] 5 07:35:43 00256 Substance with sulfonami de structure and antibacte rial mechanism of action (substanc e) medicatio n Not available Not available Not available 03/16/2024 23365 8003 SNOMED [facility] [address] [facility], [address], [place], [address], [facility] [employer] [facility] 5 07:35:56 68053 acetamino phen / oxycodone medicatio n Not available Not available Not available 03/16/2024 54164 3 RxNorm [facility] [address] [facility], [address], [place], [address], [facility] [employer] [facility] 5 07:36:01 59357 diatrizoa te meglumine medicatio n Not available Not available Not available 03/17/2024 3320 RxNorm Courtney Hilton MD [address] [facility], [address], [place], [address], [facility] [employer] [facility] 5 12:01:07 24981 acetamino phen / hydrocodo ne medicatio n hives Not available high 03/17/20242023 46701 2 RxNorm Courtney Hilton MD [address] [facility], [address], [place], [address], [facility] 5 12:01:23 Vitals Date Recorded Body weight Body mass index (BMI) Body height Heart rate Respiratory rate Body temperature Oxygen saturation Oxygen saturation in Arterial blood by Pulse oximetry Systolic blood pressure Diastolic blood pressure Provider Name and Address Organization Details Last Updated DateTime 5 023769. 72 g 42.6 kg/m2 154.94 cm 76 /min 18 /min 98.6 [degF] 95 % 95 % 128 mm[Hg] 71 mm[Hg] Courtney Hilton MD [address] [facility], [address], [place], [address], [facility] 12:31:48 Date Recorded Body height Heart rate Respiratory rate Body temperature Oxygen saturation Oxygen saturation in Arterial blood by Pulse oximetry Systolic blood pressure Diastolic blood pressure Provider Name and Address Organization Details Last Updated DateTime 154.94 cm 80 /min 18 /min 98.2 [degF] 97 % 97 % 135 mm[Hg] 70 mm[Hg] NETO LIAO NP [address] [facility], [address], [place], [address], [facility] 5 14:13:38 Date Recorded Body height Body mass index (BMI) Body weight Heart rate Respiratory rate Body temperature Oxygen saturation Oxygen saturation in Arterial blood by Pulse oximetry Systolic blood pressure Diastolic blood pressure Provider Name and Address Organization Details Last Updated DateTime 5 154.94 cm 41.2 kg/m2 43845.1 4 g 87 /min 18 /min 97.6 [degF] 99 % 99 % 124 mm[Hg] 70 mm[Hg] JAZMIN MOLINA [address] [facility], [address], [place], [address], [facility] 5 21:27:51 Social History Question Answer Notes LastModified by Organizat ion Details LastModified Time Tobacco Smoking Status Never Smoker Courtney Hilton MD [address] [facility], [address], [place], [address], [facility] 03/17/2024 12:59:09 Do You Have An Advance Directive? Yes Information not available 03/17/2024 What Is Your Code Status? Full Code Information not available 03/17/2024 Where Do You Live? [place] With And 22 Yo Daughter Information not available 03/17/2024 Legal Guardian? No Informati on not available 03/17/2024 Do You Have A Medical Power Of Collection Card Clerk? Yes Not Invoked Information not available 03/17/2024 What Was The Date Of Your Most Recent Tobacco Screening? 03/17/2024 Information not available 03/17/2024 Do You Have An Out Of Hospital DNR? No Information not available 03/17/2024 What Is Your Relationship Status? Information not available 03/17/2024 Has Tobacco Cessation Counseling Been Provided? No N/a As Pt Is Non-smoker Information not available 03/17/2024 Sex: Unknown Functional Status Question Answer Note LastModified by [employer] Details LastModified Time Do you use any illicit or recreational drugs? No Information not available 03/17/2024 Do you or have you ever used any other forms of tobacco or nicotine? No Information not available 03/17/2024 What is your level of alcohol consumption? None Information not available 03/17/2024 Mental Status None recorded. Family History Nothing Reported Notes:n/c Medical History No medical history recorded. Gynecological HistoryNo gynecological history recorded. Obstetrics History GPAL:G 0 P 0 0 0 0 Immunizations Vaccine Type Date Status Note Provider Nam e and Address Organization Details Recorded Time Tdap 3 completed [facility] 03/17/2024 16:04:28 pneumococcal polysaccharide PPV23 7 completed [facility] 03/17/2024 16:04:40 influenza, unspecified formulation 6 completed [facility] 03/17/2024 16:04:55 influenza, unspecified formulation 7 completed Donavon [facility] 03/17/2024 16:04:59 influenza, unspecified formulation 8 completed Donavon Jacks-Caal null, [facility] 03/17/2024 16:05:04 influenza, unspecified formulation 1 completed Donavon Jacks-Caal null, [facility] 03/17/2024 16:05:08 influenza, unspecified formulation 2 completed Donavon Jacks-Caal null, [facility] 03/17/2024 16:05:12 MMRV 7 completed Donavon Jacks-Caal null, [facility] 03/17/2024 16:05:27 MMRV 7 completed Donavon Jacks-Caal null, [facility] 03/17/2024 16:05:32 SARS-COV-2 (COVID-19) vaccine, UNSPECIFIED 0 completed Donavon Canos-Caal null, [facility] 03/17/2024 16:05:44 SARS-COV-2 (COVID-19) vaccine, UNSPECIFIED 1 completed Donavon Jeromes-Caal null, [facility] 03/17/2024 16:05:47 SARS-COV-2 (COVID-19) vaccine, UNSPECIFIED 1 completed Donavon Jacks-Caal null, [facility] 03/17/2024 16:05:52 SARS-COV-2 (COVID-19) vaccine, UNSPECIFIED 2 completed Donavon Jacks-Caal null, [facility] 03/17/2024 16:05:56 SARS-COV-2 (COVID-19) vaccine, UNSPECIFIED 2 completed Donavon Jacks-Caal null, [facility] 03/17/2024 16:06:02 SARS-COV-2 (COVID-19) vaccine, UNSPECIFIED 4 completed Donavon Jacks-Caal null, [facility] 03/17/2024 16:06:06 zoster, unspecified formulation 0 completed Donavon Jacks-Caal null, [facility] 03/17/2024 16:06:19 Past Encounters Encounter ID Performer Location Encounter Start Date Encounter Closed Date Diagnosis/Indication Diagnosis SNOMED-CT Code Diagnosis ICD10 Code Diagnosis Note [id number] [facility] [address] [place] [address] 03/16/2024 07:35:02 03/17/2024 10:55:49 Coronary arteriosclerosis 24505616 I25.10 Status post KAMRYN to the proximal RCA back in August3contin ue aspirin and atorvastat inmonitor cp Hypothyroidism 80910585 E03.9 Continue levothyrox ine 125 mcg dailymonit or tsh/t4 Gastroesop hageal reflux disease 649743837 K21.9 continue pantoprazo lemonitor ss Migraine 06487638 G43.90 9 w/ auramonito r Anxiety 86746604 F41.9 Continue sertraline , and as needed lorazepamm onitor mood and affectpsyc h prn Atypical chest pain 1025 91792 R07.89 Chronic left chest wall pain after thoracotom yGets scheduled T6, T7, T8 nerve blocks with [facility] almost monthly.Co ntinue pregabalin and nortriptyl ine Enteritis of intestine 3367823696 K52.9 Continue home mesalamine and ursodiol History of Hodgkin lymphoma 829138370 Z85.71 status post mantle field radiation back in 1992 in remission for many years 4 excisional biopsy of a right groin lymph node, and left upper lung lobe mini thoracotom y after a suspicious PET scan (both biopsies negative for malignancy monitor and f/up with oncology as needed Pleural effusion 2481618 8 J90 history of recurrent left pleural effusions/ pneumothor aces status to thoracente ses (reportedl y negative for malignancy ) and eventually pleurodesi sfollows with pulmshe will sched f/up apt when she is stronger Obstructiv e sleep apnea syndrome 61617150 G47.33 CPAP qhs Obesity 447994748 E66.9 monitor diet and weightsedu cation Mood disorder 94680917 F 39 see depression Asthma 557277813 J45.90 9 mild asthmarece ntly tx for exaccontin ue symbicort and trelegy dailynebz stopped yesterday prior to dcmonitor need to restart Acute resp iratory failure 66753668 J96.00 dt asthma exac and multifocal PNAnow on RAstill sob with exertion, could be dt deconditio ningmonito r resp status Pneumonia 482150468 J18. 9 multifocal PNAmonitor cbc on admit and weeklyrepe at CXR in 6 weeksconti nue augmentin bid (ends 03/16)make f/up with her pulm Liver func tion tests outside reference range 147945214 R94.5 monitor LFTscmp on admit and weekly [id number] Courtney Hilton MD [facility] [address] [place] [address] 03/17/2024 12:00:28 03/18/2024 11:46:19 Coronary arteriosclerosis 48311998 I25.10 Status post KAMRYN to the proximal RCA in 08/2022No recent sxs.Contin ue ASA 81 mg qd and atorvastat in 40 mg qd.Monitor for sxs.F/U with cardio as planned Hypothyroidism 49344576 E03.8 Last TSH 0.48 in 02/2024.In 09/2023 TSH had been low and levothyrox ine changed to 6d/wk, unclear when it got increased again, may have been inpt error.Cont inue levothyrox ine 125 mcg qdWill recheck TSH and FT4 with next labs Gastroesop hageal reflux disease 225706514 K21.9 No current sxs.Contin ue pantoprazo le 40 mg qd.Monitor GI sxs. Migraine 44013382 G43.80 9 Relatively frequent in hx.Follows with neuro.Cont inue Emgality 120 mg monthly and nortriptyl ine 10 mg qhs.Monito r sxs.F/U as planned. Anxiety 81572384 F41.1 Mood good today.Cont inue sertraline 125 mg qd and lorazepam 0.5 mg BID prn.Monito r mood.Consu lt psych prn History of Hodgkin lymphoma 654951545 Z85.71 S/P mantle field radiation back in 1992 in remission for many yearsF/U with oncology prn Pleural effusion 9315974 8 J90 In hx, only minor on this admission. Monitor Obstructiv e sleep apnea syndrome 60439848 G47.33 Improved after gastric bypass surgery, but back on CPAP now.Contin ue CPAP with sleep.F/U with pulmonary. Obesity 227402302 E66.01 Z68.41 As above. Asthma 181663336 J45.40 Almost back to baseline.D /C med list had symbicort and trelegy listed.Pt says symbicort doesn't work, she is on trelegy at home. Actually has a brand new one in her nightstand here.Resta rt trelegy 100/62.5/2 5 mcg qdContinue albuterol q 6 hrs prn.Monito r resp status. Acute resp iratory failure 66339675 J96.01 Due to PNA causing asthma exacerbati on.Now resolved and weaned back to RA.Continu e asthma meds as below.Nadia tor resp status. Pneumonia 867177000 J15. 8 S/P multifocal PNAComplet ed course of abxs with Augmentin 875 mg BID on 03/16.Contin ue asthma meds as below.Very deconditio roberto.Needs PT/OT for strengthen ing, balance, gait training, safety and function.C ontinue fall precaution s.Monitor for safety.Mon itor resp status. Anterior c hest wall pain 690058703 R07.89 Chronic left chest wall pain after thoracotom y.Gets scheduled T6, T7, T8 nerve blocks with [facility] on regular schedule.C ontinue pregabalin 100 mg 5x/d, nortriptyl ine 10 mg qd,and lidocaine patch daily.Didn 't tolerate gabapentin .Monitor sxs and f/u as planned. History of bariatric surgical procedure 573126357 Z98.84 S/P gastric bypass in 2018.Nestor nue ursodiol 500 mg BID.Contin ue to encourage healthy eating and continued wt. loss. Ileitis 73427794 K52.9 Under good control on current regimen.Co ntinue mesalamine 1.5 mg qd.Monitor sxs.F/U with GI as planned. Insulin resistance 23673 5000 E88.810 Sugars mostly WNL inpt, but HgA1C 6.2Encoura ge healthy eating and continued wt. loss.Monit or as outpt. Vitamin D deficiency 347 95918 E56.8 Continue vitamin D 2000 IU qd.Monitor levels prn Anemia 442162097 D64.89 Iron low inpt with high ferritin (likely due to infection) .Will start iron gluconate 324 mg qd. with vitamin C 500 mg qd for absorption .Monitor labs [id number] NETO LIAO, GIGI [facility] [address] [place] [address] 03/24/2024 12:46:00 03/25/2024 13:32:28 Pneumonia 594730225 J15.8 S/P multifocal PNAComplet ed course of abxs with Augmentin 875 mg BID on 03/16.Contin ue asthma meds as below.Very deconditio roberto.Needs PT/OT for strengthen ing, balance, gait training, safety and function.G oal is to return home.Nestor nue fall precaution s.Monitor for safety.Mon itor resp status. Acute resp iratory failure 39098685 J96.01 Due to PNA causing asthma exacerbati on.Now resolved and weaned back to RA.Continu e asthma meds as below.Nadia tor resp status. Pleural effusion 0157447 8 J90 In hx, only minor on this admission. Monitor Asthma 859815799 J45.40 Almost back to baseline.D /C med list had symbicort and trelegy listed.Pt says symbicort doesn't work, she is on trelegy at home. Actually has a brand new one in her nightstand here.Resta rt trelegy 100/62.5/2 5 mcg qdContinue albuterol q 6 hrs prn.Monito r resp status. 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 Coronary arteriosclerosis 25269937 I25.10 Status post KAMRYN to the proximal RCA in 08/2022No recent sxs.Contin ue ASA 81 mg qd and atorvastat in 40 mg qd.Monitor for sxs.F/U with cardio as planned Hypothyroidism 60009386 E03.8 Last TSH 0.48 in 02/2024.In 09/2023 TSH had been low and levothyrox ine changed to 6d/wk, unclear when it got increased again, may have been inpt error.Cont inue levothyrox ine 125 mcg qdWill recheck TSH and FT4 with next labs Gastroesop hageal reflux disease 742784704 K21.9 No current sxs.Contin ue pantoprazo le 40 mg qd.Monitor GI sxs. Insulin resistance 92725 5000 E88.810 Sugars mostly WNL inpt, but HgA1C 6.2Encoura ge healthy eating and continued wt. loss.Monit or as outpt. Anemia 469329871 D64.89 Iron low inpt with high ferritin (likely due to infection) .Will start iron gluconate 324 mg qd. with vitamin C 500 mg qd for absorption .Monitor labs Migraine 43921114 G43.80 9 Relatively frequent in hx.Follows with neuro.Cont inue Emgality 120 mg monthly and nortriptyl ine 10 mg qhs.Monito r sxs.F/U as planned. Anxiety 11544977 F41.1 Mood good today.Cont inue sertraline 125 mg qd and lorazepam 0.5 mg BID prn x 14 days, re-eval 03/28Monito r mood.Consu lt psych prn Ileitis 86568236 K52.9 Under good control on current regimen.Co ntinue mesalamine 1.5 mg qd.Monitor sxs.F/U with GI as planned. History of Hodgkin lymphoma 581250074 Z85.71 S/P mantle field radiation back in 1992 in remission for many yearsF/U with oncology prn Obstructiv e sleep apnea syndrome 68129731 G47.33 Improved after gastric bypass surgery, but back on CPAP now.Contin ue CPAP with sleep.F/U with pulmonary. History of bariatric surgical procedure 587647947 Z98.84 S/P gastric bypass in 2018.Nestor nue ursodiol 500 mg BID.Contin ue to encourage healthy eating and continued wt. loss. Obesity 545209921 E66.01 Z68.41 As above. Vitamin D deficiency 347 47112 E56.8 Continue vitamin D 2000 IU qd.Monitor levels prn Dizziness 503566738 R42 When OOB, usually goes away.Somet imes she feels her HR go up, which then makes her feel more SOB.Labs goodVSGaetano ck orthostati c VS x 3Monitor [id number] [place] [address] 03/25/2024 10:15:48 03/28/2024 15:28:10 Streptococcal sore throat 28326096 J02.0 highly suspicious exam for strep throatstar t amoxicilli n 500 mg q12h x 10 daystyleno l for pain control and body achessuppo rtive care with rest and fluidscepa col throat lozenge po q2h prnthroat swab [id number] [place] [address] 03/29/2024 14:07:44 03/30/2024 15:57:47 Asthenia 60347860 R53.1 lingering weakness secondary to pneumonia and recent presumed strep throatcont inue PT/OT for strengthen ing and conditioni ngdiscusse d with patient to increase fluids to minimize risk for dehydratio n that can contribute to weakness and fatigue, patient verbalizes understand ing. Asthma 166232452 J45.40 breathing is improvingc ont on trelegyCon tinue albuterol q [id number] [place] [address] 03/30/2024 09:46:22 03/31/2024 15:25:42 Asthenia 65766512 R53.1 lingering weakness secondary to pneumonia and recent presumed strep throatreco mmend continuing PT/OT for strengthen ing and conditioni ngdiscusse d with patient to increase fluids to minimize risk for dehydratio n that can contribute to weakness and fatigue, patient verbalizes understand ing. Asthma 149629731 J45.40 breathing is improvingc ont on trelegyCon tinue albuterol q 6 hrs prn. Anemia 385116861 D64.89 iron gluconate 324 mg qd. with vitamin C 500 mg qd for absorption . Anterior c hest wall pain 034874911 R07.89 Chronic left chest wall pain after thoracotom y.[facility] as plannedCon tinue pregabalin 100 mg 5x/d, nortriptyl ine 10 mg qd,and lidocaine patch daily. Anxiety 05952530 F41.1 Continue sertraline 125 mg qd Coronary arteriosclerosis 04629688 I25.10 Continue ASA 81 mg qd and atorvastat in 40 mg qd.Monitor for sxs. Enteritis of intestine 8069876853 K52.9 Continue mesalamine and ursodiol Gastroesop hageal reflux disease 374225084 K21.9 Continue pantoprazo le 40 mg qd. Hypothyroidism 59483078 E03.8 Continue levothyrox ine 125 mcg qd Ileitis 05454504 K52.9 Continue mesalamine 1.5 mg qd.F/U with GI as planned. Obstructiv e sleep apnea syndrome 95837055 G47.33 Continue CPAP with sleep.F/U with pulmonary. Health Concerns Section Related Observation LastModified by Organization Detai ls LastModified Time None Recorded Concern Status LastModified by Organization Details LastModified Time None Recorded Advance Directives Directive Y: Payers Encounter Date Sequence Insurance Name Policy Number Policy Chilel Covered Member ID Chilel Member ID Guarantor Name 03/17/2024 1 [place] HMO) [id number] Rose Marie Ross [id number] Rose Marie Ross 03/24/2024 1 [place] HMO) [id number] Rose Marie Ross [id number] Rose Marie Pinedaedo 03/25/2024 1 [place] HMO) [id number] Rose Marie Pinedaedo [id number] Rose Marei Ross 03/29/2024 1 [place] HMO) [id number] Rose Marie Ross [id number] Rose Marie Ross 03/30/2024 1 [place] HMO) [id number] Rose Marie Pinedaedo [id number] Rose Marie Escobedoo Notes Date Note Type Note Provider Name [...] the right groin lymph node on 03/12/23 ([facility] - all biopsies negative for malignancy). A complication of that procedure was left chest wall pain syndrome requiring T6-8 nerve blocks every month via [facility].She was in her normal state of [facility] however her found her on the couch with decreased responsiveness, vomitingand therefore she was fought to [facility] where she was admitted for 5 days and treated for right middle lobe pneumonia, aspiration pneumonia and acute hypoxic respiratory failure. Sputum cultures showed safia and she was discharged on Bactria, fluconazole and 4 LPM of O2 (not previously on O2 at home).She was discharged at that time. She wasdischarged to [address] [place] [address]{03/07} around 7pm.After her admission rain developed severe SOB after a coughing fit and was transferred to [facility] on 03/09/24. In the ED [...] wall pain since thoracotomy. Courtney Hilton MD [address] [place] [address], [address], [place], [address], [facility] - [employer] 03/17/2024 21:11:11 5 text/html Rose Marie is [...] the right groin lymph node on 03/12/23 ([facility] - all biopsies negative for malignancy). A complication of that procedure was left chest wall pain syndrome requiring T6-8 nerve blocks every month via [facility].She was in her normal state of [facility] however her found her on the couch with decreased responsiveness, vomitingand therefore she was brought to [facility] where she was admitted for 5 days and treated for right middle lobe pneumonia, aspiration pneumonia and acute hypoxic respiratory failure. Sputum cultures showed safia and she was discharged on Bactrim, fluconazole and 4 LPM of O2 (not previously on O2 at home). She was discharged at that time. She wasdischarged to [address] [place] [address]{03/07} around 7pm.After her admission therepacheco developed severe SOB after a coughing fit and was transferred to [facility] on 03/09/24. In the ED [...] pain since thoracotomy. NETO LIAO NP [address], [address], [place], [address], Sara Campbell 03/24/2024 14:27:36 5 text/html Pt is a [...] wall pain since thoracotomy. NAV [employer] [address], [address], [place], [address], [facility] 03/25/2024 10:23:45 5 text/html Patient is a 58 yr old female seen for acute rounding visit. She is seen sitting upright in wheelchair in her room in [facility], she reports breathing has greatly improved, continues to feel tired at times but otherwise she is doing well and is looking forward to going home. Her appetite has improved she is eating and drinking ok, denies any new discomfort, no concerns with elimination. JAZMIN MOLINA [address], [address], [place], [address], [facility] [employer] 03/29/2024 21:29:50 5 text/html Discharge summary This is a 58 yo woman who is was admitted for rehab after several recent hospitalizations, most recently for a multifocal PNA with pleural effusion and asthma exacerbation with hypoxia. Pt was admitted for [facility] and treated for right middle lobe pneumonia, aspiration pneumonia and acute hypoxic respiratory failure. Hours after her dc to rehab she was brought to [facility] for acute hypoxic resp [...] therapy and nursing services. JAZMIN MOLINA [address], [address], [place], [address], Sara Campbell 03/30/2024 10:18:52 OBGyn Episode No OBEpisode recorded.
== END 2024-07-25 09:28 | disposition home or self-care (01) ==
LOC: HO.HGI 09:01
PROVIDERS: PCP Internal Medicine; Visit Provider Internal Medicine Gastroenterology
DX: D64.9 Anemia, unspecified (principal)
CPT/HCPCS: 99214

== ENCOUNTER 2024-07-26 13:30 | Outpatient (REF) | payer BC, SELFPAY ==
[2024-07-21 08:49] VITALS: BP 100/50; BP 114/58; BP 156/54; BMI 40.1
--- OUTSIDE RECORDS SUMMARY | 2024-07-27 14:03 | XMS_ITS | Clinical Summary ---
Author Organization [facility] Address [address] [place] [address] Phone Care Team Providers Care Assembly And Packing Supervisor Name Role Phone Huong Johnson MD Primary Care Provider [phone] Allergies Active Allergy Reactions Criticality Noted Date [...] negative for cancer including a left thoracotomy [place]. I had a long discussion with her [...] PM EDT Office Visit Thoracic Surgery - [place] 299 [facility] [address] [place] [phone] Simone Harris MD Pulmonary nodule (Primary Dx); Aspiration pneumonia of right middle lobe, unspecified aspiration pneumonia type (CMS/HCC V24, CMS/HCC V28) 06/08/2024 3:00 PM EDT - 06/08/2024 11:59 PM EDT Hospital Encounter [facility] CT Scan [address] [place] [phone] Pulmonary nodule; Aspiration pneumonia of right middle lobe, unspecified aspiration pneumonia type (CMS/HCC V24, CMS/HCC V28) Discharge Disposition: Home or Self Care 05/12/2024 2:00 PM EST Consult Thoracic Surgery - [address] [phone] Simone Harris MD Pulmonary nodule (Primary Dx); [...] for your loved ones. For example, child caregiver or elderly care for an older adult? [...] Signed Date: 06/10/2024 17:17 ET Workstation ID: [id number] Transcribed By: Self Edit Transcribed Date: 06/10/2024 [...] Signed Date: 06/10/2024 17:17 ET Workstation ID: [id number] Transcribed By: Self Edit Transcribed Date: 06/10/2024 16:50 ET Simone Harris MD [facility] CT PROCEDURES Final Result * (ABNORMAL) Basic metabolic panel (03/30/2024 5:10 AM EST) Sodium 143 133 - 145 mmol/L LAB CHEMISTRY METHOD 03/30/2024 11:55 AM EST [facility] Potassium 4.7 3.5 - 5.5 mmol/L LAB CHEMISTRY METHOD 03/30/2024 11:55 AM EST [facility] LAB Comment:Hemolysis present Chloride 112(H) 96 - 110 mmol/L LAB CHEMISTRY METHOD 03/30/2024 11:55 AM EST [facility] CO2 26 21 - 32 [...] Resul t [facility] [address] [place] [address], from Last 3 Months or Most Recently Relevant to Health Maintenance Insurance [facility] Advance Directives Documents on File Type Date Recorded Patient Biomedical Field Service Engineer Expl anation Advance Directives and Living [...] currently active code status orders. Care Teams Assembly And Packing Supervisor Relationship Specialty Start Date End Date Huong Johnson MD [address] [place] [address] PCP - General Internal Medicine 03/03/24
--- OUTSIDE RECORDS SUMMARY | 2024-07-27 14:03 | XMS_ITS | Encounter Summary ---
Author Organization [facility] Address [address] [place] [address] Care Team Providers Care Admin Asst Name Role Phone Huong Johnson MD Primary Care Provider [phone] Encounter Details Date Type Department Care Team (Late st Contact Info) Description 03/18/2024 Lab Requisition [facility] - Main Lab 299 [facility] [place] [address] Darien Smith MD [address] [place] [address] [address] [place], [address] Anemia, unspecified Social History Tobacco Use [...] t Performing Organization Address City/[facility]/ZIP Co de Phone Number [facility] [address] [place] [address], [place] [phone] * (ABNORMAL) Thyroid stimulating hormone (03/18/2024 6:30 AM EST) [facility] TSH 5.29(H) 0.40 - 4.00 mcIU/mL LAB CHEMISTRY METHOD 03/18/2024 12:02 PM EST [facility] Blood Venous blood specimen / Unknown Venipuncture / Unknown 03/18/2024 6:30 AM EST 03/18/2024 10:39 AM EST us Darien Smith MD LAB BLOOD ORDERABLES Final Resul t [facility] [address] [place] [address], [place] [phone] * (ABNORMAL) Comprehensive metabolic panel (03/18/2024 6:30 AM EST) [facility] Sodium 140 133 - 145 mmol/L LAB CHEMISTRY METHOD 03/18/2024 12:01 PM EST [facility] Potassium 5.5 3.5 - 5.5 mmol/L LAB CHEMISTRY METHOD 03/18/2024 12:01 PM [facility] Chloride 107 96 - 110 mmol/L LAB CHEMISTRY METHOD 03/18/2024 12:01 PM [facility] CO2 26 21 - 32 mmol/L LAB CHEMISTRY METHOD 03/18/2024 12:01 PM [facility] Anion Gap 7 3 - 11 LAB CHEMISTRY METHOD 03/18/2024 12:01 PM [facility] Glucose 75 70 - 100 mg/dL LAB CHEMISTRY METHOD 03/18/2024 12:01 PM [facility] BUN 9 5 - 25 mg/dL LAB CHEMISTRY METHOD 03/18/2024 12:01 PM [facility] Creatinine 0.78 0.50 - 1.10 mg/dL LAB CHEMISTRY METHOD 03/18/2024 12:01 PM [facility] eGFR 89 >=60 mL/min/1. 73m2 LAB CHEMISTRY METHOD 03/18/2024 12:01 PM [facility] Comment:Calculation based on the??Chronic Kidney Disease Epidemiology Collaboration (CKD-EPI) equation refit??without adjustment for race. BUN/Creatinine Ratio 11.5 LAB CHEMISTRY METHOD 03/18/2024 12:01 PM [facility] Calcium 8.6 8.5 - 10.5 mg/dL LAB CHEMISTRY METHOD 03/18/2024 12:01 [facility] AST (SGOT) 22 10 - 42 unit/L LAB CHEMISTRY METHOD 03/18/2024 12:01 [facility] ALT (SGPT) 14 10 - 60 unit/L LAB CHEMISTRY METHOD 03/18/2024 12:01 PM [facility] Alkaline Phosphatase 136(H) 42 - 121 unit/L LAB CHEMISTRY METHOD 03/18/2024 12:01 PM [facility] Total Protein 5.7(L) 6.0 - 8.0 g/dL LAB CHEMISTRY METHOD 03/18/2024 12:01 PM [facility] Albumin 2.6(L) 3.2 - 5.0 g/dL LAB CHEMISTRY METHOD 03/18/2024 12:01 PM [facility] Total Bilirubin 0.5 0.0 - 1.4 mg/dL LAB CHEMISTRY METHOD 03/18/2024 12:01 PM [facility] Blood Venous blood specimen / Unknown Venipuncture / Unknown 03/18/2024 6:30 AM EST 03/18/2024 10:39 AM EST us Darien Smith MD LAB BLOOD ORDERABLES Final Resul t [facility] [address] [place] [address], [place] [phone] * (ABNORMAL) Complete blood count (03/18/2024 6:30 AM EST) WBC 13.0(H) 4.8 - 10.8 K/mcL LAB HEMETOLOGY METHOD 03/18/2024 11:21 AM [facility] RBC 3.70(L) 3.80 - 4.80 M/mcL LAB HEMETOLOGY METHOD 03/18/2024 11:21 AM [facility] Hemoglobin 10.3(L) 11.5 - 16.0 g/dL LAB HEMETOLOGY METHOD 03/18/2024 11:21 AM [facility] Hematocrit 33.4(L) 35.0 - 47.0 % LAB HEMETOLOGY METHOD 03/18/2024 11:21 AM [facility] MCV 90.8 79.0 - 98.0 FL LAB HEMETOLOGY METHOD 03/18/2024 11:21 AM [facility] MCH 28.0 27.0 - 32.0 pcg LAB HEMETOLOGY METHOD 03/18/2024 11:21 AM [facility] MCHC 30.8(L) 32.0 - 37.0 g/dL LAB HEMETOLOGY METHOD 03/18/2024 11:21 AM EST [facility] RDW 15.1(H) 11.0 - 15.0 % LAB HEMETOLOGY METHOD 03/18/2024 11:21 AM [facility] Platelets 608(H) 130 - 400 K/mcL LAB HEMETOLOGY METHOD 03/18/2024 11:21 AM [facility] MPV 11.2(H) 7.0 - 11.0 FL LAB HEMETOLOGY METHOD 03/18/2024 11:21 AM [facility] NRBC 0.0 <1.0 % LAB HEMETOLOGY METHOD 03/18/2024 11:21 AM [facility] NRBC Absolute 0.00 <0.10 K/mcL LAB HEMETOLOGY METHOD 03/18/2024 11:21 AM [facility] Blood Venous blood specimen / Unknown Venipuncture / Unknown 03/18/2024 6:30 AM EST 03/18/2024 10:39 AM EST us Darien Smith MD LAB BLOOD ORDERABLES Final Resul t [facility] [address] [place] [address], documented in this encounter Visit Diagnoses Diagnosis Anemia, unspecified documented in this encounter Care Teams Admin Asst Relationship Specialty Start Date End Date Huong Johnson MD [address] [place] [address] PCP - General Internal Medicine 03/03/24 documented as of this encounter
--- OUTSIDE RECORDS SUMMARY | 2024-07-27 14:03 | XMS_ITS | Encounter Summary ---
Author Organization [facility] Address [address] [place] [address] Care Team Providers Care Batting Machine Operator Insulation Name Role Phone Huong Johnson MD Primary Care Provider [phone] Encounter Details Date Type Department Care Team (Late st Contact Info) Description 04/05/2024 Lab Requisition [facility] - Main Lab [address] [facility] [place] [address] Darien Smith MD [address] [place] [address] [address], [phone] Anemia, unspecified Social History Tobacco Use [...] your loved ones. For example, child development professor or elderly care for an older adult? [...] unspecified documented in this encounter Care Teams Batting Machine Operator Insulation Relationship Specialty Start Date End Date Huong Johnson MD [id number] [place] [address] PCP - General Internal Medicine 03/03/24 documented as of this encounter
--- OUTSIDE RECORDS SUMMARY | 2024-07-27 14:03 | XMS_ITS | Data Portability ---
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 Name Role Phone [facility] [...] Time Liver function tests outside reference range [id number] Active [address] [facility] [address], [address], [place], [address], [facility] [employer] [facility] 5 07:37:37 Allergic rhinitis 91167963 Active [address] [facility] [address], [address], [place], [address], [facility] 5 07:37:46 Anxiety 31598637 Active [address] [facility] [address], [address], [place], [address], [facility] 5 07:37:54 Asthma 740977079 Active [address] [facility] [address], [address], [place], [address], [facility] [employer] [facility] 5 07:38:02 Gastroesophag eal reflux disease 159308414 Active [address] [facility] [address], [address], [place], [address], [facility] 5 07:38:10 History of Hodgkin lymphoma 534375610 Active [address] [facility] [address], [address], [place], [address], [facility] 5 07:38:45 Migraine 91134569 Active [address] [facility] [address], [address], [place], [address], [facility] 5 07:38:53 Mood disorder 73468129 Active [address] [facility] [address], [address], [place], [address], [facility] 5 07:39:02 Obstructive sleep apnea syndrome 54490614 Active [address] [facility] [address], [address], [place], [address], [facility] 5 07:39:13 Hypothyroidis m 81394807 Active [address] [facility] [address], [address], [place], [address], [facility] 5 07:39:22 Obesity 049335870 Active [address] [facility] [address], [address], [place], [address], [facility] 5 07:39:38 Adenomatous polyp of colon 066313795 Active [address] [facility] [address], [address], [place], [address], [facility] 5 07:40:10 Coronary arteriosclero sis 44622530 Active [address] [facility] [address], [address], [place], [address], [facility] 5 07:45:49 Acute respiratory failure 90162499 Active [address] [facility] [address], [address], [place], [address], [facility] 5 07:46:00 Pneumonia 408161136 Active [address] [facility] [address], [address], [place], [address], [facility] 5 07:46:08 Pleural effusion 22003615 Active [address] [facility] [address], [address], [place], [address], [facility] 5 07:46:27 Atypical chest pain 876549897 Active 2024 [facility] [address] [facility], [address], [place], [address], [facility] 5 08:00:44 Enteritis of intestine 5138309581 Active 2024 [facility] [address] [facility], [address], [place], [address], [facility] 5 08:01:43 Anterior chest wall pain 322138847 Active 2024 Courtney Hilton MD [address] [place] [address], [address], [place], [address], [facility] 5 13:31:52 Ileitis 28974851 Active 2024 Courtney Hilton MD [address] [place] [address] St, [address], [place], [address], [facility] 5 14:10:16 Insulin resistance 449334885 Active 2024 Courtney Hilton MD [address], [address], [place], [address], [facility] 5 14:16:36 Anemia 341668448 Active 2024 Courtney Hilton MD [address] [facility], [address], [place], [address], [facility] 5 14:26:33 Problem Notes None recorded. Medical Equipment None Reported. Allergies Allergen ID Allergen Name Allergen Category Reaction Reaction Severity Criticality Documentation Date Start Date Code Code System Note Provider Name and Address Organization Details Recorded Time 78835 oxycodone medicatio n itching rash Not available Not available high 03/16/20242023 7804 RxNorm Courtney Hilton MD [address] [facility], [address], [place], [address], [facility] 5 12:01:35 68942 Gastrogra fin medicatio n Not available Not available Not available 03/16/2024 14620 5 RxNorm [facility] [address] [facility], [address], [place], [address], [facility] 5 07:35:43 87637 Substance with sulfonami de structure and antibacte rial mechanism of action (substanc e) medicatio n Not available Not available Not available 03/16/2024 45458 8003 SNOMED [facility] [address] [facility], [address], [place], [address], [facility] [employer] [facility] 5 07:35:56 61211 acetamino phen / oxycodone medicatio n Not available Not available Not available 03/16/2024 67268 3 RxNorm [facility] [address] [facility], [address], [place], [address], [facility] 5 07:36:01 55044 diatrizoa te meglumine medicatio n Not available Not available Not available 03/17/2024 3320 RxNorm Courtney Hilton MD [address] [facility], [address], [place], [address], [facility] 5 12:01:07 70812 acetamino phen / hydrocodo ne medicatio n hives Not available high 03/17/20242023 95663 2 RxNorm Courtney Hilton MD [address] [facility], [address], [place], [address], [facility] 5 12:01:23 Vitals Date Recorded Body weight Body mass index (BMI) Body height Heart rate Respiratory rate Body temperature Oxygen saturation Oxygen saturation in Arterial blood by Pulse oximetry Systolic blood pressure Diastolic blood pressure Provider Name and Address Organization Details Last Updated DateTime 5 539667. 72 g 42.6 kg/m2 154.94 cm 76 /min 18 /min 98.6 [degF] 95 % 95 % 128 mm[Hg] 71 mm[Hg] Courtney Hilton MD [address] [facility], [address], [place], [address], [employer] [facility] 12:31:48 Date Recorded Body height Heart rate Respiratory rate Body temperature Oxygen saturation Oxygen saturation in Arterial blood by Pulse oximetry Systolic blood pressure Diastolic blood pressure Provider Name and Address Organization Details Last Updated DateTime 154.94 cm 80 /min 18 /min 98.2 [degF] 97 % 97 % 135 mm[Hg] 70 mm[Hg] NETO LIAO NP [address] [facility], [address], [place], [address], [facility] 5 14:13:38 Date Recorded Body height Body mass index (BMI) Body weight Heart rate Respiratory rate Body temperature Oxygen saturation Oxygen saturation in Arterial blood by Pulse oximetry Systolic blood pressure Diastolic blood pressure Provider Name and Address Organization Details Last Updated DateTime 5 154.94 cm 41.2 kg/m2 06121.1 4 g 87 /min 18 /min 97.6 [degF] 99 % 99 % 124 mm[Hg] 70 mm[Hg] JAZMIN MOLINA [address] [facility], [address], [place], [address], [facility] 5 21:27:51 Social History Question Answer Notes LastModified by Organizat ion Details LastModified Time Tobacco Smoking Status Never Smoker Courtney Hilton MD [address] [facility], [address], [address], [address], [facility] 03/17/2024 12:59:09 Do You Have An Advance Directive? Yes Information not available 03/17/2024 What Is Your Code Status? Full Code Information not available 03/17/2024 Where Do You Live? [facility] With And 22 Yo Daughter Information not available 03/17/2024 Legal Guardian? No Informati on not available 03/17/2024 Do You Have A Medical Power Of Hand Tacker? Yes Not Invoked Information not available 03/17/2024 [...] Functional Status Question Answer Note LastModified by Carnadizat ion Details LastModified Time Do you use [...] Recorded Time Tdap 3 completed Donavon Parsons [facility] 03/17/2024 16:04:28 pneumococcal polysaccharide PPV23 7 completed Donavon Parsons [facility] 03/17/2024 16:04:40 influenza, unspecified formulation 6 completed Donavon Parsons [facility] 03/17/2024 16:04:55 influenza, unspecified formulation 7 completed Donavon Parsons [facility] 03/17/2024 16:04:59 influenza, unspecified formulation 8 completed Donavon Jacks-Caal null, [facility] 03/17/2024 16:05:04 influenza, unspecified formulation 1 completed Donavon Jacks-Caal null, [facility] 03/17/2024 16:05:08 influenza, unspecified formulation 2 completed Donavon Jacks-Caal null, [facility] 03/17/2024 16:05:12 MMRV 7 completed Donavon Jacks-Caal null, [facility] 03/17/2024 16:05:27 MMRV 7 completed Donavon Jacks-Caal null, [facility] 03/17/2024 16:05:32 SARS-COV-2 (COVID-19) vaccine, UNSPECIFIED 0 completed Donavon Canos-Caal null, [facility] 03/17/2024 16:05:44 SARS-COV-2 (COVID-19) vaccine, UNSPECIFIED 1 completed Donavon Jeromes-Caal null, [facility] 03/17/2024 16:05:47 SARS-COV-2 (COVID-19) vaccine, UNSPECIFIED 1 completed Donavon Jacks-Caal null, [facility] 03/17/2024 16:05:52 SARS-COV-2 (COVID-19) vaccine, UNSPECIFIED 2 completed Donavon Jacks-Caal null, [facility] 03/17/2024 16:05:56 SARS-COV-2 (COVID-19) vaccine, UNSPECIFIED 2 completed Donavon Jacks-Caal null, [facility] 03/17/2024 16:06:02 SARS-COV-2 (COVID-19) vaccine, UNSPECIFIED 4 completed Donavon Jacks-Caal null, [facility] 03/17/2024 16:06:06 zoster, unspecified formulation 0 completed Donavon Jacks-Caal null, [facility] 03/17/2024 16:06:19 Past Encounters Encounter ID Performer Location Encounter Start Date Encounter Closed Date Diagnosis/Indication Diagnosis SNOMED-CT Code Diagnosis ICD10 Code Diagnosis Note [id number] [facility] [address] [place] [address] 03/16/2024 07:35:02 03/17/2024 10:55:49 Coronary arteriosclerosis 48248456 I25.10 Status post KAMRYN to the proximal RCA back in August3contin ue aspirin and atorvastat inmonitor cp Hypothyroidism 32900608 E03.9 Continue levothyrox ine 125 mcg dailymonit or tsh/t4 Gastroesop hageal reflux disease 103077681 K21.9 continue pantoprazo lemonitor ss Migraine 89658360 G43.90 9 w/ auramonito r Anxiety 35361319 F41.9 Continue sertraline , and as needed lorazepamm onitor mood and affectpsyc h prn Atypical chest pain 1025 88577 R07.89 Chronic left chest wall pain after thoracotom yGets scheduled T6, T7, T8 nerve blocks with [facility] almost monthly.Co ntinue pregabalin and nortriptyl ine Enteritis of intestine 7144219855 K52.9 Continue home mesalamine and ursodiol History of Hodgkin lymphoma 654887858 Z85.71 status post mantle field radiation back in 1992 in remission for many years 4 excisional biopsy of a right groin lymph node, and left upper lung lobe mini thoracotom y after a suspicious PET scan (both biopsies negative for malignancy monitor and f/up with oncology as needed Pleural effusion 7533083 8 J90 history of recurrent left pleural effusions/ pneumothor aces status to thoracente ses (reportedl y negative for malignancy ) and eventually pleurodesi sfollows with pulmshe will sched f/up apt when she is stronger Obstructiv e sleep apnea syndrome 55212159 G47.33 CPAP qhs Obesity 656781999 E66.9 monitor diet and weightsedu cation Mood disorder 74638427 F 39 see depression Asthma 659571036 J45.90 9 mild asthmarece ntly tx for exaccontin ue symbicort and trelegy dailynebz stopped yesterday prior to dcmonitor need to restart Acute resp iratory failure 27316448 J96.00 dt asthma exac and multifocal PNAnow on RAstill sob with exertion, could be dt deconditio ningmonito r resp status Pneumonia 583297008 J18. 9 multifocal PNAmonitor cbc on admit and weeklyrepe at CXR in 6 weeksconti nue augmentin bid (ends 03/16)make f/up with her pulm Liver func tion tests outside reference range 554344993 R94.5 monitor LFTscmp on admit and weekly [id number] Courtney Hilton MD [facility] [address] [place] [address] 03/17/2024 12:00:28 03/18/2024 11:46:19 Coronary arteriosclerosis 42740749 I25.10 Status post KAMRYN to the proximal RCA in 08/2022No recent sxs.Contin ue ASA 81 mg qd and atorvastat in 40 mg qd.Monitor for sxs.F/U with cardio as planned Hypothyroidism 78023044 E03.8 Last TSH 0.48 in 02/2024.In 09/2023 TSH had been low and levothyrox ine changed to 6d/wk, unclear when it got increased again, may have been inpt error.Cont inue levothyrox ine 125 mcg qdWill recheck TSH and FT4 with next labs Gastroesop hageal reflux disease 225330291 K21.9 No current sxs.Contin ue pantoprazo le 40 mg qd.Monitor GI sxs. Migraine 11971765 G43.80 9 Relatively frequent in hx.Follows with neuro.Cont inue Emgality 120 mg monthly and nortriptyl ine 10 mg qhs.Monito r sxs.F/U as planned. Anxiety 76280018 F41.1 Mood good today.Cont inue sertraline 125 mg qd and lorazepam 0.5 mg BID prn.Monito r mood.Consu lt psych prn History of Hodgkin lymphoma 357118343 Z85.71 S/P mantle field radiation back in 1992 in remission for many yearsF/U with oncology prn Pleural effusion 1941658 8 J90 In hx, only minor on this admission. Monitor Obstructiv e sleep apnea syndrome 32091627 G47.33 Improved after gastric bypass surgery, but back on CPAP now.Contin ue CPAP with sleep.F/U with pulmonary. Obesity 014492867 E66.01 Z68.41 As above. Asthma 229525680 J45.40 Almost back to baseline.D /C med list had symbicort and trelegy listed.Pt says symbicort doesn't work, she is on trelegy at home. Actually has a brand new one in her nightstand here.Resta rt trelegy 100/62.5/2 5 mcg qdContinue albuterol q 6 hrs prn.Monito r resp status. Acute resp iratory failure 62500492 J96.01 Due to PNA causing asthma exacerbati on.Now resolved and weaned back to RA.Continu e asthma meds as below.Nadia tor resp status. Pneumonia 009144368 J15. 8 S/P multifocal PNAComplet ed course of abxs with Augmentin 875 mg BID on 03/16.Contin ue asthma meds as below.Very deconditio roberto.Needs PT/OT for strengthen ing, balance, gait training, safety and function.C ontinue fall precaution s.Monitor for safety.Mon itor resp status. Anterior c hest wall pain 954256909 R07.89 Chronic left chest wall pain after thoracotom y.Gets scheduled T6, T7, T8 nerve blocks with [facility] on regular schedule.C ontinue pregabalin 100 mg 5x/d, nortriptyl ine 10 mg qd,and lidocaine patch daily.Didn 't tolerate gabapentin .Monitor sxs and f/u as planned. History of bariatric surgical procedure 255598676 Z98.84 S/P gastric bypass in 2018.Nestor nue ursodiol 500 mg BID.Contin ue to encourage healthy eating and continued wt. loss. Ileitis 63631249 K52.9 Under good control on current regimen.Co ntinue mesalamine 1.5 mg qd.Monitor sxs.F/U with GI as planned. Insulin resistance 57943 5000 E88.810 Sugars mostly WNL inpt, but HgA1C 6.2Encoura ge healthy eating and continued wt. loss.Monit or as outpt. Vitamin D deficiency 347 83367 E56.8 Continue vitamin D 2000 IU qd.Monitor levels prn Anemia 542038116 D64.89 Iron low inpt with high ferritin (likely due to infection) .Will start iron gluconate 324 mg qd. with vitamin C 500 mg qd for absorption .Monitor labs [id number] NETO LIAO, GIGI [facility] [address] [place] [address] 03/24/2024 12:46:00 03/25/2024 13:32:28 Pneumonia 205126339 J15.8 S/P multifocal PNAComplet ed course of abxs with Augmentin 875 mg BID on 03/16.Contin ue asthma meds as below.Very deconditio roberto.Needs PT/OT for strengthen ing, balance, gait training, safety and function.G oal is to return home.Nestor nue fall precaution s.Monitor for safety.Mon itor resp status. Acute resp iratory failure 27874764 J96.01 Due to PNA causing asthma exacerbati on.Now resolved and weaned back to RA.Continu e asthma meds as below.Nadia tor resp status. Pleural effusion 2555348 8 J90 In hx, only minor on this admission. Monitor Asthma 379131600 J45.40 Almost back to baseline.D /C med list had symbicort and trelegy listed.Pt says symbicort doesn't work, she is on trelegy at home. Actually has a brand new one in her nightstand here.Resta rt trelegy 100/62.5/2 5 mcg qdContinue albuterol q 6 hrs prn.Monito r resp status. 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 Coronary arteriosclerosis 09064540 I25.10 Status post KAMRYN to the proximal RCA in 08/2022No recent sxs.Contin ue ASA 81 mg qd and atorvastat in 40 mg qd.Monitor for sxs.F/U with cardio as planned Hypothyroidism 51513354 E03.8 Last TSH 0.48 in 02/2024.In 09/2023 TSH had been low and levothyrox ine changed to 6d/wk, unclear when it got increased again, may have been inpt error.Cont inue levothyrox ine 125 mcg qdWill recheck TSH and FT4 with next labs Gastroesop hageal reflux disease 645707565 K21.9 No current sxs.Contin ue pantoprazo le 40 mg qd.Monitor GI sxs. Insulin resistance 11015 5000 E88.810 Sugars mostly WNL inpt, but HgA1C 6.2Encoura ge healthy eating and continued wt. loss.Monit or as outpt. Anemia 880193530 D64.89 Iron low inpt with high ferritin (likely due to infection) .Will start iron gluconate 324 mg qd. with vitamin C 500 mg qd for absorption .Monitor labs Migraine 09589048 G43.80 9 Relatively frequent in hx.Follows with neuro.Cont inue Emgality 120 mg monthly and nortriptyl ine 10 mg qhs.Monito r sxs.F/U as planned. Anxiety 94560550 F41.1 Mood good today.Cont inue sertraline 125 mg qd and lorazepam 0.5 mg BID prn x 14 days, re-eval 03/28Monito r mood.Consu lt psych prn Ileitis 60027642 K52.9 Under good control on current regimen.Co ntinue mesalamine 1.5 mg qd.Monitor sxs.F/U with GI as planned. History of Hodgkin lymphoma 078823614 Z85.71 S/P mantle field radiation back in 1992 in remission for many yearsF/U with oncology prn Obstructiv e sleep apnea syndrome 90028453 G47.33 Improved after gastric bypass surgery, but back on CPAP now.Contin ue CPAP with sleep.F/U with pulmonary. History of bariatric surgical procedure 615746566 Z98.84 S/P gastric bypass in 2018.Nestor nue ursodiol 500 mg BID.Contin ue to encourage healthy eating and continued wt. loss. Obesity 518695664 E66.01 Z68.41 As above. Vitamin D deficiency 347 25461 E56.8 Continue vitamin D 2000 IU qd.Monitor levels prn Dizziness 749147513 R42 When OOB, usually goes away.Somet imes she feels her HR go up, which then makes her feel more SOB.Labs goodVSGaetano ck orthostati c VS x 3Monitor [id number] [place] [address] 03/25/2024 10:15:48 03/28/2024 15:28:10 Streptococcal sore throat 43090835 J02.0 highly suspicious exam for strep throatstar t amoxicilli n 500 mg q12h x 10 daystyleno l for pain control and body achessuppo rtive care with rest and fluidscepa col throat lozenge po q2h prnthroat swab [id number] [place] [address] 03/29/2024 14:07:44 03/30/2024 15:57:47 Asthenia 00371063 R53.1 lingering weakness secondary to pneumonia and recent presumed strep throatcont inue PT/OT for strengthen ing and conditioni ngdiscusse d with patient to increase fluids to minimize risk for dehydratio n that can contribute to weakness and fatigue, patient verbalizes understand ing. Asthma 091945037 J45.40 breathing is improvingc ont on trelegyCon tinue albuterol q [id number] [place] [address] 03/30/2024 09:46:22 03/31/2024 15:25:42 Asthenia 46662949 R53.1 lingering weakness secondary to pneumonia and recent presumed strep throatreco mmend continuing PT/OT for strengthen ing and conditioni ngdiscusse d with patient to increase fluids to minimize risk for dehydratio n that can contribute to weakness and fatigue, patient verbalizes understand ing. Asthma 885401273 J45.40 breathing is improvingc ont on trelegyCon tinue albuterol q 6 hrs prn. Anemia 814653155 D64.89 iron gluconate 324 mg qd. with vitamin C 500 mg qd for absorption . Anterior c hest wall pain 825984181 R07.89 Chronic left chest wall pain after thoracotom y.[facility] as plannedCon tinue pregabalin 100 mg 5x/d, nortriptyl ine 10 mg qd,and lidocaine patch daily. Anxiety 84496583 F41.1 Continue sertraline 125 mg qd Coronary arteriosclerosis 51027423 I25.10 Continue ASA 81 mg qd and atorvastat in 40 mg qd.Monitor for sxs. Enteritis of intestine 3052816044 K52.9 Continue mesalamine and ursodiol Gastroesop hageal reflux disease 387277998 K21.9 Continue pantoprazo le 40 mg qd. Hypothyroidism 44349666 E03.8 Continue levothyrox ine 125 mcg qd Ileitis 50760597 K52.9 Continue mesalamine 1.5 mg qd.F/U with GI as planned. Obstructiv e sleep apnea syndrome 24876716 G47.33 Continue CPAP with sleep.F/U with pulmonary. Health Concerns Section Related Observation LastModified by Organization Detai ls LastModified Time None Recorded Concern Status LastModified by Organization Details LastModified Time None Recorded Advance Directives Directive Y: Payers Encounter Date Sequence Insurance Name Policy Number Policy Chilel Covered Member ID Chilel Member ID Guarantor Name 03/17/2024 1 [place] HMO) [id number] Rose Marie Ross [id number] Rose Marie Ross 03/24/2024 1 [place] HMO) [id number] Rose Marie Ross [id number] Rose Marie Pinedaedo 03/25/2024 1 [place] HMO) [id number] Rose Marie Pinedaedo [id number] Rose Marie Ross 03/29/2024 1 [place] HMO) [id number] Rose Marie Ross [id number] Rose Marie Ross 03/30/2024 1 [place] HMO) [id number] Rose Marie Pinedaedo [id number] Rose Marie Escobedoo Notes Date Note [...] the right groin lymph node on 03/12/23 ([facility] - all biopsies negative for malignancy). A complication of that procedure was left chest wall pain syndrome requiring T6-8 nerve blocks every month via [facility].She was in her normal state of [facility] however her found her on the couch with decreased responsiveness, vomitingand therefore she was fought to [facility] where she was admitted for 5 days and treated for right middle lobe pneumonia, aspiration pneumonia and acute hypoxic respiratory failure. Sputum cultures showed safia and she was discharged on Bactria, fluconazole and 4 LPM of O2 (not previously on O2 at home).She was discharged at that time. She wasdischarged to [address] [place] [address]{03/07} around 7pm.After her admission rain developed severe SOB after a coughing fit and was transferred to [facility] on 03/09/24. In the ED a CT [...] wall pain since thoracotomy. Courtney Hilton MD [address] [place] [address], [address], [place], [address], [facility] - [facility] 03/17/2024 21:11:11 5 text/html Rose Marie is [...] the right groin lymph node on 03/12/23 ([facility] - all biopsies negative for malignancy). A complication of that procedure was left chest wall pain syndrome requiring T6-8 nerve blocks every month via [facility].She was in her normal state of [facility] however her found her on the couch with decreased responsiveness, vomitingand therefore she was brought to [facility] where she was admitted for 5 days and treated for right middle lobe pneumonia, aspiration pneumonia and acute hypoxic respiratory failure. Sputum cultures showed safia and she was discharged on Bactrim, fluconazole and 4 LPM of O2 (not previously on O2 at home). She was discharged at that time. She wasdischarged to [address] [place] [address]{03/07} around 7pm.After her admission therepacheco developed severe SOB after a coughing fit and was transferred to [facility] on 03/09/24. In the ED a CT [...] pain since thoracotomy. NETO LIAO NP [address] [facility], [address], [place], [address], [employer] 03/24/2024 14:27:36 5 text/html Pt is a [...] wall pain since thoracotomy. [employer] [address] [facility], [address], [place], [address], [employer] 03/25/2024 10:23:45 5 text/html Patient is a 58 yr old female seen for acute rounding visit. She is seen sitting upright in wheelchair in her room in [facility], she reports breathing has greatly improved, continues to feel tired at times but otherwise she is doing well and is looking forward to going home. Her appetite has improved she is eating and drinking ok, denies any new discomfort, no concerns with elimination. JAZMIN MOLINA [address] [facility], [address], [place], [address], [facility] [employer] 03/29/2024 21:29:50 5 text/html Discharge summary This is a 58 yo woman who is was admitted for rehab after several recent hospitalizations, most recently for a multifocal PNA with pleural effusion and asthma exacerbation with hypoxia. Pt was admitted for 5 days at [facility] and treated for right middle lobe pneumonia, aspiration pneumonia and acute hypoxic respiratory failure. Hours after her dc to rehab she was brought to [facility] for acute hypoxic resp failure and required [...] MOLINA [address] [facility], [address], [place], [address], [employer] 03/30/2024 10:18:52 OBGyn Episode No OBEpisode recorded.
--- OUTSIDE RECORDS SUMMARY | 2024-07-27 14:03 | XMS_ITS | Encounter Summary ---
Author Organization [facility] Address [address] [place] [address] Care Team Providers Care Boat Deckhand Name Role Phone Huong Johnson MD Primary Care Provider [phone] Encounter Details Date Type Department Care Team (Late st Contact Info) Description 03/29/2024 Lab Requisition [facility] - Main Lab [address] [facility] [place] [address] Darien Smith MD [address] [place] [address] [address] [place], [phone] Anemia, unspecified Social History Tobacco Use [...] your loved ones. For example, child welfare social worker or elderly care for an older [...] 11:55 AM [facility] Potassium [...] t [facility] [address] [place] [address], * (ABNORMAL) Complete blood count (03/30/2024 5:10 AM EST) [facility] Signature WBC 6.8 4.8 - 10.8 K/mcL LAB HEMETOLOGY METHOD 03/30/2024 11:54 AM EST [facility] RBC 3.60(L) 3.80 - 4.80 M/mcL LAB HEMETOLOGY METHOD 03/30/2024 11:54 AM [facility] Hemoglobin 10.2(L) 11.5 - 16.0 g/dL LAB HEMETOLOGY METHOD 03/30/2024 11:54 AM [facility] Hematocrit 33.9(L) 35.0 - 47.0 % LAB HEMETOLOGY METHOD 03/30/2024 11:54 AM [facility] MCV 93.1 79.0 - 98.0 FL LAB HEMETOLOGY METHOD 03/30/2024 11:54 AM [facility] MCH 28.0 27.0 - 32.0 pcg LAB HEMETOLOGY METHOD 03/30/2024 11:54 AM [facility] MCHC 30.1(L) 32.0 - 37.0 g/dL LAB HEMETOLOGY METHOD 03/30/2024 11:54 AM [facility] RDW 15.9(H) 11.0 - 15.0 % LAB HEMETOLOGY METHOD 03/30/2024 11:54 AM [facility] Platelets 193 130 - 400 K/mcL LAB HEMETOLOGY METHOD 03/30/2024 11:54 AM [facility] MPV 12.1(H) 7.0 - 11.0 FL LAB HEMETOLOGY METHOD 03/30/2024 11:54 AM EST [facility] NRBC 0.0 <1.0 % LAB HEMETOLOGY METHOD 03/30/2024 11:54 AM EST [facility] NRBC Absolute 0.00 <0.10 K/mcL LAB HEMETOLOGY METHOD 03/30/2024 11:54 AM EST [facility] Blood Venous blood specimen / Unknown Venipuncture / Unknown 03/30/2024 5:10 AM EST 03/30/2024 10:53 AM EST us Darien Smith MD LAB BLOOD ORDERABLES Final Resul t [facility] [address] [place] [address], documented in this encounter Visit Diagnoses Diagnosis Anemia, unspecified documented in this encounter Care Teams Boat Deckhand Relationship Specialty Start Date End Date Huong Johnson MD [address] [place] [address] PCP - General Internal Medicine 03/03/24 documented as of this encounter
--- OUTSIDE RECORDS SUMMARY | 2024-07-27 14:03 | XMS_ITS | Encounter Summary ---
Author Organization [facility] Address [address] [place] [address] Care Team Providers Care Nursing Informatics Clinical Analyst Name Role Phone Huong Johnson MD Primary Care Provider [phone] Encounter Details Date Type Department Care Team (Late st Contact Info) Description 03/22/2024 Lab Requisition [facility] - Main Lab [address] [facility] [place] [address] Darien Smith MD [address] [place] [address] [address] [place], [phone] Anemia, unspecified Social History Tobacco Use [...] for your loved ones. For example, children's book author or elderly care for an older adult? [...] mmol/L LAB CHEMISTRY METHOD 03/23/2024 10:11 AM [facility] Potassium 4.7 3.5 - 5.5 mmol/L LAB CHEMISTRY METHOD 03/23/2024 10:11 AM [facility] Chloride 109 96 - 110 mmol/L LAB CHEMISTRY METHOD 03/23/2024 10:11 AM [facility] CO2 28 21 - 32 mmol/L LAB CHEMISTRY METHOD 03/23/2024 10:11 AM [facility] Anion Gap 4 3 - 11 LAB CHEMISTRY METHOD 03/23/2024 10:11 AM [facility] Glucose 86 70 - 100 mg/dL LAB CHEMISTRY METHOD 03/23/2024 10:11 AM [facility] BUN 6 5 - 25 mg/dL LAB CHEMISTRY METHOD 03/23/2024 10:11 AM [facility] Creatinine 0.66 0.50 - 1.10 mg/dL LAB CHEMISTRY METHOD 03/23/2024 10:11 AM [facility] eGFR 103 >=60 mL/min/1. 73m2 LAB CHEMISTRY METHOD 03/23/2024 10:11 AM [facility] Comment:Calculation based on the??Chronic Kidney Disease Epidemiology Collaboration (CKD-EPI) equation refit??without adjustment for race. BUN/Creatinine Ratio 9.1 LAB CHEMISTRY METHOD 03/23/2024 10:11 AM [facility] Calcium 8.7 8.5 - 10.5 mg/dL LAB CHEMISTRY METHOD 03/23/2024 10:11 AM [facility] Blood Venous blood specimen / Unknown Venipuncture / Unknown 03/23/2024 4:56 AM EST 03/23/2024 8:44 AM EST us Darien Smith MD LAB BLOOD ORDERABLES Final Resul t [facility] [address] [place] [address], * (ABNORMAL) Complete blood count (03/23/2024 4:56 AM EST) [facility] WBC 8.2 4.8 - 10.8 K/mcL LAB HEMETOLOGY METHOD 03/23/2024 9:56 AM [facility] RBC 3.50(L) 3.80 - 4.80 M/mcL LAB HEMETOLOGY METHOD 03/23/2024 9:56 AM [facility] Hemoglobin 10.0(L) 11.5 - 16.0 g/dL LAB HEMETOLOGY METHOD 03/23/2024 9:56 AM [facility] Hematocrit 32.2(L) 35.0 - 47.0 % LAB HEMETOLOGY METHOD 03/23/2024 9:56 AM [facility] MCV 91.0 79.0 - 98.0 FL LAB HEMETOLOGY METHOD 03/23/2024 9:56 AM [facility] MCH 28.2 27.0 - 32.0 pcg LAB HEMETOLOGY METHOD 03/23/2024 9:56 AM [facility] MCHC 31.1(L) 32.0 - 37.0 g/dL LAB HEMETOLOGY METHOD 03/23/2024 9:56 AM [facility] RDW 15.5(H) 11.0 - 15.0 % LAB HEMETOLOGY METHOD 03/23/2024 9:56 AM [facility] Platelets 480(H) 130 - 400 K/mcL LAB HEMETOLOGY METHOD 03/23/2024 9:56 AM [facility] MPV 11.4(H) 7.0 - 11.0 FL LAB HEMETOLOGY METHOD 03/23/2024 9:56 AM [facility] NRBC 0.0 <1.0 % LAB HEMETOLOGY METHOD 03/23/2024 9:56 AM EST [facility] NRBC Absolute 0.00 <0.10 K/mcL LAB HEMETOLOGY METHOD 03/23/2024 9:56 AM EST [facility] Blood Venous blood specimen / Unknown Venipuncture / Unknown 03/23/2024 4:56 AM EST 03/23/2024 8:44 AM EST us Darien Smith MD LAB BLOOD ORDERABLES Final Resul t [facility] [address] [place] [address], documented in this encounter Visit Diagnoses Diagnosis Anemia, unspecified documented in this encounter Care Teams Nursing Informatics Clinical Analyst Relationship Specialty Start Date End Date Huong Johnson MD [address] [place] [address] PCP - General Internal Medicine 03/03/24 documented as of this encounter
[2024-08-03 14:42] LABS: Lactoferrin, Fecal, Quant. <6.25 mcg/mL (<7.25)
== END 2024-07-26 13:31 | disposition home or self-care (01) ==
LOC: HO.LNP 13:30
PROVIDERS: Visit Provider Internal Medicine Gastroenterology
DX: K51.50 Left sided colitis without complications (principal); D64.9 Anemia, unspecified
CPT/HCPCS: 83631

== ENCOUNTER 2024-08-05 09:51 | Outpatient (AMB) | payer BC, SELFPAY ==
[2024-07-21 08:49] VITALS: BP 100/50; BP 114/58; BP 156/54; BMI 40.1
--- NOTE | 2024-08-05 09:20 | MHC.OFFVISWM ---
VS Expanded 08/05/24 09:21 Height 5 ft 2 in Weight 235 lb 9 oz BMI 43.1 Intake Visit Reasons: TV PO LSG 01/05/18 *GLP-1* Allergies oxycodone [From PERCOCET] Allergy (Intermediate, Verified 07/25/24 09:07) HIVES Sulfa (Sulfonamide Antibiotics) [SULFA (SULFONAMIDE ANTIBIOTICS)] Allergy (Intermediate, Verified 07/25/24 09:07) HIVES diatrizoate meglumine [Gastrografin] Allergy (Unknown, Verified 07/25/24 09:07) red rash HPI Comments Details: Patient is a 58-year-old female who returns to the office today in follow-up. She is approximately 6 year 7 month post sleeve gastrectomy performed 01/05/2018. She had not been seen in over 4 years, seen for the 1st time last month with a weight of 232 lb with a BMI of 42.5. She was seen in follow-up for approximately a year. Her lowest weight was 195 lb. She felt as though she had too many doctors and chose not to continue follow-up as she felt that she had been doing well. Unfortunately, after that, her health declined. She developed fluid within the left lung requiring pleurodesis and ultimately wedge resection for possible left lung nodules. This relates back to radiation treatment she sustained secondary to Hodgkin's lymphoma when she was in her 20s. She had follow-up PET scan in February 2024 and then developed multifocal pneumonia requiring a proximally 2 week hospitalization. She was ultimately discharged to rehab for approximately a month, going home in April or May 2024 without the need for home O2. She had follow-up cardiac ultrasound recently revealing worsening aortic stenosis to now moderate to severe. She also has moderate mitral valve stenosis. Weight today is 235.9 lb with a BMI 43.1. She states she is having a difficult time with the meal plan, started with shakes and she would like to do 2 shakes and 2 meals. She was not following the right BMI correctly. She was doing 4 whole fair life shakes per day and a meal which she was not measuring quantity. Meal plan: Fairlife 30 gm rtd shake 10-12, 1-3, 4-6 meal at 7 pm protein and veg not measuring another shake 9-11 Drinking 16 oz water Exercise: sitting exercises walking outdoors plans to join gym, [employer] in [facility] Medical History History of mantle field radiation therapy (~1992) Environmental allergies History of shingles CAD (coronary artery disease) Stented coronary artery (~2022) Hyperlipidemia Obesity Mitral stenosis Anxiety and depression Tubular adenoma of colon History of Hodgkin's lymphoma (~1992) Radiation-induced heart disease Aortic stenosis Asthma Hypothyroid Hepatic steatosis GERD (gastroesophageal reflux disease) Herpes Surgical History History of lung surgery History of lymph node excision (03/12/23) History of lung biopsy (02/11/23) History of repair of hiatal hernia (~2017) History of thoracentesis (~2018) History of ankle surgery History of section History of colonoscopy History of heart artery stent (~2022) History of arthroscopy of right shoulder History of sleeve gastrectomy (~2017) History of esophagogastroduodenoscopy (EGD) History of cholecystectomy Family History Mother Colon cancer Father Hypertension Prostate cancer Son Diabetes Daughter Autism Social History Household Members: Spouse and Family Housing: House Are you a primary healthcare recruiter to a significant other at home: No Do you presently have visiting nurse or other home services: No Alcohol intake: current Alcohol intake frequency: holidays/special occasions only Patient Tobacco Use Status: Never used Tobacco e-Cigarette/Vaping Use: Never Used Substance Use Type: Marijuana service: No 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: employed 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 Telehealth Telehealth Platform: Telephone Location of provider rendering services: practice address Location of patient: address on file Patient Identification confirmed using: Name, : Yes Telehealth method: voice only Patient verbally consented to treatment: Yes Patient verbally consented to billing insurance company: Yes Patient informed of any privacy concerns related to visit: Yes Minutes spent on Phone/Video with Pt.: 15 Assessment & Plan Assessment & Plan (1) S/P laparoscopic sleeve gastrectomy: Code(s): Z98.84 - Bariatric surgery status Category: Medical Plan: Patient was having difficulty with the right BMI dipak. I emailed the develop her to e-mail the patient to discuss the issues. In the meantime, we will adjust her meal plan: 10-12 fair life ready to drink shake, 8 oz 1 pm meal with 7 forks of protein and 7 forks of vegetables 6 pm another meal with 7 forks of protein and 7 forks of vegetables 8-10 pm another shake with 8 oz Encouraged to drink at least 48 oz of fluids in addition to the shakes. Encouraged to join sensory fitness gym and begin cardiovascular exercises including treadmill, stationary bike, elliptical, rowing machine. Goal of burning 300 calories per day, 7 days a week or 2000 calories per week. She was encouraged to text her weights weekly and text with any questions or concerns. We will have her return to the clinic in approximately 1 month.
[2024-08-05 09:21] VITALS: BMI 43.1
--- OUTSIDE RECORDS SUMMARY | 2024-08-05 10:16 | XMS_ITS | Encounter Summary ---
Author Organization [facility] Address [address] [place] [address] Care Team Providers Care Silk Snapper Name Role Phone Huong Johnson MD Primary Care Provider [phone] Encounter Details Date Type Department Care Team (Late st Contact Info) Description 03/22/2024 Lab Requisition [facility] - Main Lab [address] [facility] [place] [address] Darien Smith MD [address] [place] [address] [address] [place], [address] Anemia, unspecified Social History Tobacco Use [...] mmol/L LAB CHEMISTRY METHOD 03/23/2024 10:11 AM [facility] Potassium 4.7 3.5 - 5.5 mmol/L LAB CHEMISTRY METHOD 03/23/2024 10:11 AM [facility] Chloride 109 96 - 110 mmol/L LAB CHEMISTRY METHOD 03/23/2024 10:11 AM [facility] CO2 28 21 - 32 mmol/L LAB CHEMISTRY METHOD 03/23/2024 10:11 AM [facility] Anion Gap 4 3 - 11 LAB CHEMISTRY METHOD 03/23/2024 10:11 AM [facility] Glucose 86 70 - 100 mg/dL LAB CHEMISTRY METHOD 03/23/2024 10:11 AM [facility] BUN 6 5 - 25 mg/dL LAB CHEMISTRY METHOD 03/23/2024 10:11 AM [facility] Creatinine 0.66 0.50 - 1.10 mg/dL LAB CHEMISTRY METHOD 03/23/2024 10:11 AM [facility] eGFR 103 >=60 mL/min/1. 73m2 LAB CHEMISTRY METHOD 03/23/2024 10:11 AM [facility] Comment:Calculation based on the??Chronic Kidney Disease Epidemiology Collaboration (CKD-EPI) equation refit??without adjustment for race. BUN/Creatinine Ratio 9.1 LAB CHEMISTRY METHOD 03/23/2024 10:11 AM [facility] Calcium 8.7 8.5 - 10.5 mg/dL LAB CHEMISTRY METHOD 03/23/2024 10:11 AM [facility] Blood Venous blood specimen / Unknown Venipuncture / Unknown 03/23/2024 4:56 AM EST 03/23/2024 8:44 AM EST us Darien Smith MD LAB BLOOD ORDERABLES Final Resul t [facility] [address] [place] [address], * (ABNORMAL) Complete blood count (03/23/2024 4:56 AM EST) [facility] WBC 8.2 4.8 - 10.8 K/mcL LAB HEMETOLOGY METHOD 03/23/2024 9:56 AM [facility] RBC 3.50(L) 3.80 - 4.80 M/mcL LAB HEMETOLOGY METHOD 03/23/2024 9:56 AM [facility] Hemoglobin 10.0(L) 11.5 - 16.0 g/dL LAB HEMETOLOGY METHOD 03/23/2024 9:56 AM [facility] Hematocrit 32.2(L) 35.0 - 47.0 % LAB HEMETOLOGY METHOD 03/23/2024 9:56 AM [facility] MCV 91.0 79.0 - 98.0 FL LAB HEMETOLOGY METHOD 03/23/2024 9:56 AM [facility] MCH 28.2 27.0 - 32.0 pcg LAB HEMETOLOGY METHOD 03/23/2024 9:56 AM [facility] MCHC 31.1(L) 32.0 - 37.0 g/dL LAB HEMETOLOGY METHOD 03/23/2024 9:56 AM [facility] RDW 15.5(H) 11.0 - 15.0 % LAB HEMETOLOGY METHOD 03/23/2024 9:56 AM [facility] Platelets 480(H) 130 - 400 K/mcL LAB HEMETOLOGY METHOD 03/23/2024 9:56 AM [facility] MPV 11.4(H) 7.0 - 11.0 FL LAB HEMETOLOGY METHOD 03/23/2024 9:56 AM [facility] NRBC 0.0 <1.0 % LAB HEMETOLOGY METHOD 03/23/2024 9:56 AM EST [facility] NRBC Absolute 0.00 <0.10 K/mcL LAB HEMETOLOGY METHOD 03/23/2024 9:56 AM EST [facility] Blood Venous blood specimen / Unknown Venipuncture / Unknown 03/23/2024 4:56 AM EST 03/23/2024 8:44 AM EST us Darien Smith MD LAB BLOOD ORDERABLES Final Resul t [facility] [address] [place] [address], documented in this encounter Visit Diagnoses Diagnosis Anemia, unspecified documented in this encounter Care Teams Silk Snapper Relationship Specialty Start Date End Date Huong Johnson MD [address] [place] [address] PCP - General Internal Medicine 03/03/24 documented as of this encounter
== END 2024-08-05 09:51 | disposition home or self-care (01) ==
LOC: HO.HBS 09:51
PROVIDERS: PCP Internal Medicine; Visit Provider Physician Assistant Surgical
DX: E66.01 Morbid (severe) obesity due to excess calories (principal); Z68.41 Body mass index [BMI] 40.0-44.9, adult; Z90.3 Acquired absence of stomach [part of]; Z98.84 Bariatric surgery status
CPT/HCPCS: 98967

== ENCOUNTER → 2024-08-05 09:51 | Outpatient (BNVA) | payer BC, SELFPAY ==
[2024-07-21 08:49] VITALS: BP 100/50; BP 114/58; BP 156/54; BMI 40.1
== END ==
PROVIDERS: PCP Internal Medicine; Visit Provider Physician Assistant Surgical
DX: E66.01 Morbid (severe) obesity due to excess calories (principal); Z68.41 Body mass index [BMI] 40.0-44.9, adult; Z90.3 Acquired absence of stomach [part of]; Z98.84 Bariatric surgery status
CPT/HCPCS: 98967

== ENCOUNTER 2024-08-05 11:46 | Outpatient (AMB) | payer BC, SELFPAY ==
[2024-07-21 08:49] VITALS: BP 100/50; BP 114/58; BP 156/54; BMI 40.1
[2024-08-05 11:51] VITALS: BP 125/60; PULSE 86; O2SAT 99
--- NOTE | 2024-08-05 11:51 | MHC.OFFVIS ---
Vital Signs 08/05/24 11:51 Weight 235 lb BP 125/60 Blood Pressure Location Lt brachial Position Sitting Pulse 86 Pulse Source Pulse Oximeter Pulse Oximetry (%) 99 Oxygen Delivery Method Room Air Intake Visit Reasons: Denial FU Purchasing Agent Required: No Allergies oxycodone [From PERCOCET] Allergy (Intermediate, Verified 08/05/24 11:52) HIVES Sulfa (Sulfonamide Antibiotics) [SULFA (SULFONAMIDE ANTIBIOTICS)] Allergy (Intermediate, Verified 08/05/24 11:52) HIVES diatrizoate meglumine [Gastrografin] Allergy (Unknown, Verified 08/05/24 11:52) red rash HPI HPI Denial FU: Details: History of Present Illness The patient is a 58-year-old female presenting with chronic pain and concerns regarding spinal cord stimulator management. She encountered an initial approval followed by a denial for the stimulator, which was rectified after supplying the original approving documents, highlighting administrative challenges in her treatment plan. Her chronic pain significantly affects her daily living, thus leading secondary medical therapies such as lidocaine patches. While these provide relief, the patient questions the patch limit, using them above guideline suggests possible anxiety around managing pain. Notably, the patient has an underlying cardiac condition for which the possibility of requiring MRI-compatible diagnostic imaging is on her mind due to potential future interventions. Pain Description - Onset and Timing: Chronic, ongoing - Quality and Character: Severe impact on quality of life - Primary Location: Not specified - Radiation: Not mentioned - Exacerbating Factors: Not explicitly discussed - Relieving Factors: Lidocaine patches provide relief - Interferes with Activities: Yes, the chronic nature is impacting daily life Physical Exam - Appears afebrile. - Alert and oriented. - Mood and affect appropriate. - Follows and participates in conversation appropriately. Results - Tests/Diagnostics: Confirmation from [employer] that the spinal cord stimulator is MRI compatible Pain Management - Affect: Patient is stressed about pain management and future health needs - Analgesia: Using lidocaine patches, questioning increased usage - Adverse Effects: Not directly linked to lidocaine, but experiencing dizziness - Activities of Daily Living: Pain impacts quality of life, but the patient receives relief from lidocaine patches - Aberrant Drug Related Behaviors: No evidence of misuse, patient seeks guidance on appropriate lidocaine patch usage [facility] Medical History History of mantle field radiation therapy (~1992) Environmental allergies History of shingles CAD (coronary artery disease) Stented coronary artery (~2022) Hyperlipidemia Obesity Mitral stenosis Anxiety and depression Tubular adenoma of colon History of Hodgkin's lymphoma (~1992) Radiation-induced heart disease Aortic stenosis Asthma Hypothyroid Hepatic steatosis GERD (gastroesophageal reflux disease) Herpes Surgical History History of lung surgery History of lymph node excision (03/12/23) History of lung biopsy (02/11/23) History of repair of hiatal hernia (~2017) History of thoracentesis (~2018) History of ankle surgery History of section History of colonoscopy History of heart artery stent (~2022) History of arthroscopy of right shoulder History of sleeve gastrectomy (~2017) History of esophagogastroduodenoscopy (EGD) History of cholecystectomy Family History Mother Colon cancer Father Hypertension Prostate cancer Son Diabetes Daughter Autism Social History Household Members: Spouse and Family Housing: House Are you a primary healthcare administration internship to a significant other at home: No Do you presently have visiting nurse or other home services: No Alcohol intake: current Alcohol intake frequency: holidays/special occasions only Patient Tobacco Use Status: Never used Tobacco e-Cigarette/Vaping Use: Never Used Substance Use Type: Marijuana service: No 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: employed 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 Vital Signs: Last Vital Signs Pulse 86 08/05/24 11:51 BP 125/60 08/05/24 11:51 Pulse Ox 99 08/05/24 11:51 Oxygen Delivery Method Room Air 08/05/24 11:51 Assessment & Plan Assessment & Plan (1) Post-thoracotomy pain: Code(s): G89.12 - Acute post-thoracotomy pain Category: Medical (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 Discussion Notes I discussed with the patient the steps necessary for further action on her spinal cord stimulator, ensuring she understood my intent to liaise with our surgical scheduling team. We touched on the complexity surrounding the stimulator's MRI compatibility, setting expectations for cardiac imaging should the need arise. The patient remains vigilant in using lidocaine patches appropriately; I guided her toward the wool supplier?s limits while investigating dizziness causes. Finally, I encouraged open communication to address any new symptoms, ensuring a tailored and safe pain management plan. Patient Instructions - Continue using lidocaine patches as instructed; do not exceed two patches simultaneously. - Any new or worsening side effects, particularly dizziness, should be reported immediately. - Follow guidelines regarding MRI usage with the spinal cord stimulator when seeking further cardiac evaluations. - Await further contact from our office regarding necessary scheduling for ongoing treatment. Coding Level of Care Code Est Pt Level 3 (61381) Diagnoses Post-thoracotomy pain G89.12 Intercostal neuralgia G58.8
== END 2024-08-05 12:12 | disposition home or self-care (01) ==
LOC: HO.PMC 11:47
PROVIDERS: PCP Internal Medicine; Visit Provider Internal Medicine
DX: G89.12 Acute post-thoracotomy pain (principal); G58.8 Other specified mononeuropathies
CPT/HCPCS: 99213

== ENCOUNTER 2024-09-05 13:15 | Outpatient (AMB) | payer BC, SELFPAY ==
[2024-07-21 08:49] VITALS: BP 100/50; BP 114/58; BP 156/54; BMI 40.1
--- NOTE | 2024-09-05 11:22 | MHC.OFFVISWM ---
Intake Visit Reasons: TV PO LSG 01/05/18 *GLP-1* Allergies oxycodone (From PERCOCET) Allergy (Intermediate, Verified 08/05/24 11:52) HIVES Sulfa (Sulfonamide Antibiotics) (SULFA (SULFONAMIDE ANTIBIOTICS)) Allergy (Intermediate, Verified 08/05/24 11:52) HIVES diatrizoate meglumine (Gastrografin) Allergy (Unknown, Verified 08/05/24 11:52) red rash HPI Comments Details: Patient is a 58-year-old female who returns to the office today in follow-up. She is approximately 6 year 8 month post sleeve gastrectomy performed 01/05/2018. She had not been seen in over 4 years, seen for the 1st time last month with a weight of 232 lb with a BMI of 42.5. She was seen in follow-up for approximately a year. Her lowest weight was 195 lb. She felt as though she had too many doctors and chose not to continue follow-up as she felt that she had been doing well. Unfortunately, after that, her health declined. She developed fluid within the left lung requiring pleurodesis and ultimately wedge resection for possible left lung nodules. This relates back to radiation treatment she sustained secondary to Hodgkin's lymphoma when she was in her 20s. She had follow-up PET scan in February 2024 and then developed multifocal pneumonia requiring approximately 2 week hospitalization. She was ultimately discharged to rehab for approximately a month, going home in April or May 2024 without the need for home O2. She had follow-up cardiac ultrasound recently revealing worsening aortic stenosis to now moderate to severe. She also has moderate mitral valve stenosis. Weight today is 235.9 lb with a BMI 43.1. She states she is having a difficult time with the meal plan, started with shakes and she would like to do 2 shakes and 2 meals. She was not following the right BMI correctly. She was doing 4 whole fair life shakes per day and a meal which she was not measuring quantity. She is not following the meal plans that I had given her. She states she had a tooth pulled and is going to be going to get a spinal stim planted on 09/07/24. Sees therapist at [facility], next appt 09/13/24 Meal plan: 10-12 fair life ready to drink shake, 8 oz 1 pm meal with 7 forks of protein and 7 forks of vegetables 6 pm another meal with 7 forks of protein and 7 forks of vegetables 8-10 pm another shake with 8 oz Drinking 60 oz water Exercise: swimming 1 lap at a time, [employer] in [facility]. [facility] Medical History History of mantle field radiation therapy (~1992) Environmental allergies History of shingles CAD (coronary artery disease) Stented coronary artery (~2022) Hyperlipidemia Obesity Mitral stenosis Anxiety and depression Tubular adenoma of colon History of Hodgkin's lymphoma (~1992) Radiation-induced heart disease Aortic stenosis Asthma Hypothyroid Hepatic steatosis GERD (gastroesophageal reflux disease) Herpes Surgical History History of lung surgery History of lymph node excision (03/12/23) History of lung biopsy (02/11/23) History of repair of hiatal hernia (~2017) History of thoracentesis (~2018) History of ankle surgery History of section History of colonoscopy History of heart artery stent (~2022) History of arthroscopy of right shoulder History of sleeve gastrectomy (~2017) History of esophagogastroduodenoscopy (EGD) History of cholecystectomy Family History Mother Colon cancer Father Hypertension Prostate cancer Son Diabetes Daughter Autism Social History Household Members: Spouse and Family Housing: House Are you a primary direct care supervisor to a significant other at home: No Do you presently have visiting nurse or other home services: No Alcohol intake: current Alcohol intake frequency: holidays/special occasions only Patient Tobacco Use Status: Never used Tobacco e-Cigarette/Vaping Use: Never Used Substance Use Type: Marijuana service: No 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: employed 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 Telehealth Telehealth Platform: Telephone Location of provider rendering services: practice address Location of patient: address on file Patient Identification confirmed using: Name, : Yes Telehealth method: voice only Patient verbally consented to treatment: Yes Patient verbally consented to billing insurance company: Yes Patient informed of any privacy concerns related to visit: Yes Minutes spent on Phone/Video with Pt.: 12 Assessment & Plan Assessment & Plan (1) S/P laparoscopic sleeve gastrectomy: Code(s): Z98.84 - Bariatric surgery status Category: Surgical Plan: Reviewed meal plan with the patient. She states that she is self sabotage ring and is going to address this with her behavioral health therapist at the next appointment. She is additionally scheduled for spinal stimulator insertion in 2 days. She was encouraged to return to sensory [facility] where she utilizes the swimming pool. She states that she can swim 1 lap but then she has to rest I encouraged her to swim 1 lap and then walk 1 lap and then swim 1 lap and then walk 1 lap so forth and so on until she is able to swim 5 laps and walk 5 laps as she states that she was able to swim 5 laps although it took some bit of time. She appreciated the recommendation. She understands that she is sabotage seeing herself and we will work on this with a behavioral health as above. We will have her return to the office in approximately 6 weeks. Additionally, she was encouraged to text weekly and with any questions or concerns.
--- OUTSIDE RECORDS SUMMARY | 2024-09-05 13:54 | XMS_ITS | Encounter Summary ---
Author Organization [facility] Address [address] [place] [address] Care Team Providers Care Glass Scullion Name Role Phone Huong Johnson MD Primary Care Provider [phone] Encounter Details Date Type Department Care Team (Late st Contact Info) Description 03/22/2024 Lab Requisition [facility] - Main Lab [address] [facility] [place] [address] Darien Smith MD [address] [place] [address] [address] [place], [phone] Anemia, unspecified Social History Tobacco Use [...] loved ones. For example, child and family counselor or elderly care for an older [...] mmol/L LAB CHEMISTRY METHOD 03/23/2024 10:11 AM [facility] Potassium 4.7 3.5 - 5.5 mmol/L LAB CHEMISTRY METHOD 03/23/2024 10:11 AM [facility] Chloride 109 96 - 110 mmol/L LAB CHEMISTRY METHOD 03/23/2024 10:11 AM [facility] CO2 28 21 - 32 mmol/L LAB CHEMISTRY METHOD 03/23/2024 10:11 AM [facility] Anion Gap 4 3 - 11 LAB CHEMISTRY METHOD 03/23/2024 10:11 AM [facility] Glucose 86 70 - 100 mg/dL LAB CHEMISTRY METHOD 03/23/2024 10:11 AM [facility] BUN 6 5 - 25 mg/dL LAB CHEMISTRY METHOD 03/23/2024 10:11 AM [facility] Creatinine 0.66 0.50 - 1.10 mg/dL LAB CHEMISTRY METHOD 03/23/2024 10:11 AM [facility] eGFR 103 >=60 mL/min/1. 73m2 LAB CHEMISTRY METHOD 03/23/2024 10:11 AM [facility] Comment:Calculation based on the Chronic Kidney Disease Epidemiology Collaboration (CKD-EPI) equation refit without adjustment for race. BUN/Creatinine Ratio 9.1 LAB CHEMISTRY METHOD 03/23/2024 10:11 AM [facility] Calcium 8.7 8.5 - 10.5 mg/dL LAB CHEMISTRY METHOD 03/23/2024 10:11 AM [facility] Blood Venous blood specimen / Unknown Venipuncture / Unknown 03/23/2024 4:56 AM EST 03/23/2024 8:44 AM EST us Darien Smith MD LAB BLOOD ORDERABLES Final Resul t [facility] [address] [place] [address], * (ABNORMAL) Complete blood count (03/23/2024 4:56 AM EST) [facility] WBC 8.2 4.8 - 10.8 K/mcL LAB HEMETOLOGY METHOD 03/23/2024 9:56 AM [facility] RBC 3.50(L) 3.80 - 4.80 M/mcL LAB HEMETOLOGY METHOD 03/23/2024 9:56 AM [facility] Hemoglobin 10.0(L) 11.5 - 16.0 g/dL LAB HEMETOLOGY METHOD 03/23/2024 9:56 AM [facility] Hematocrit 32.2(L) 35.0 - 47.0 % LAB HEMETOLOGY METHOD 03/23/2024 9:56 AM [facility] MCV 91.0 79.0 - 98.0 FL LAB HEMETOLOGY METHOD 03/23/2024 9:56 AM [facility] MCH 28.2 27.0 - 32.0 pcg LAB HEMETOLOGY METHOD 03/23/2024 9:56 AM [facility] MCHC 31.1(L) 32.0 - 37.0 g/dL LAB HEMETOLOGY METHOD 03/23/2024 9:56 AM [facility] RDW 15.5(H) 11.0 - 15.0 % LAB HEMETOLOGY METHOD 03/23/2024 9:56 AM [facility] Platelets 480(H) 130 - 400 K/mcL LAB HEMETOLOGY METHOD 03/23/2024 9:56 AM [facility] MPV 11.4(H) 7.0 - 11.0 FL LAB HEMETOLOGY METHOD 03/23/2024 9:56 AM [facility] NRBC 0.0 <1.0 % LAB HEMETOLOGY METHOD 03/23/2024 9:[address] [facility] NRBC Absolute 0.00 <0.10 K/mcL LAB HEMETOLOGY METHOD 03/23/2024 9:[address] [facility] Blood Venous blood specimen / Unknown Venipuncture / Unknown 03/23/2024 4:56 AM EST 03/23/2024 8:44 AM EST us Darien Smith MD LAB BLOOD ORDERABLES Final Resul t [facility] [address] [place] [address], documented in this encounter Visit Diagnoses Diagnosis Anemia, unspecified documented in this encounter Care Teams Glass Scullion Relationship Specialty Start Date End Date Huong Johnson MD [address] [place] [address] PCP - General Internal Medicine 03/03/24 documented as of this encounter
== END 2024-09-05 13:29 | disposition home or self-care (01) ==
LOC: HO.HBS 13:26
PROVIDERS: PCP Internal Medicine; Visit Provider Physician Assistant Surgical
DX: E66.01 Morbid (severe) obesity due to excess calories (principal); Z68.41 Body mass index [BMI] 40.0-44.9, adult; Z90.3 Acquired absence of stomach [part of]; Z98.84 Bariatric surgery status
CPT/HCPCS: 98967

== ENCOUNTER → 2024-09-05 13:15 | Outpatient (BNVA) | payer BC, SELFPAY ==
[2024-07-21 08:49] VITALS: BP 100/50; BP 114/58; BP 156/54; BMI 40.1
== END ==
PROVIDERS: PCP Internal Medicine; Visit Provider Physician Assistant Surgical
DX: Z98.84 Bariatric surgery status (principal)
CPT/HCPCS: 98967

== ENCOUNTER 2024-09-07 09:20 | Day surgery (SDC) | payer BC, SELFPAY ==
[2024-07-21 08:49] VITALS: BP 100/50; BP 114/58; BP 156/54; BMI 40.1
--- OUTSIDE RECORDS SUMMARY | 2024-08-23 12:44 | XMS_ITS | Encounter Summary ---
Author Organization [facility] Address [address] [place] [address] Care Team Providers Care Assessor Name Role Phone Huong Johnson MD Primary Care Provider [phone] Encounter Details Date Type Department Care Team (Late st Contact Info) Description 03/22/2024 Lab Requisition [facility] - Main Lab [address] [facility] [place] [address] Darien Smith MD [address] [place] [address] [address] [place], [phone] Anemia, unspecified Social History Tobacco Use [...] ones. For example, child and family services worker or elderly care for an older [...] mmol/L LAB CHEMISTRY METHOD 03/23/2024 10:11 AM [facility] Potassium 4.7 3.5 - 5.5 mmol/L LAB CHEMISTRY METHOD 03/23/2024 10:11 AM [facility] Chloride 109 96 - 110 mmol/L LAB CHEMISTRY METHOD 03/23/2024 10:11 AM [facility] CO2 28 21 - 32 mmol/L LAB CHEMISTRY METHOD 03/23/2024 10:11 AM [facility] Anion Gap 4 3 - 11 LAB CHEMISTRY METHOD 03/23/2024 10:11 AM [facility] Glucose 86 70 - 100 mg/dL LAB CHEMISTRY METHOD 03/23/2024 10:11 AM [facility] BUN 6 5 - 25 mg/dL LAB CHEMISTRY METHOD 03/23/2024 10:11 AM [facility] Creatinine 0.66 0.50 - 1.10 mg/dL LAB CHEMISTRY METHOD 03/23/2024 10:11 AM [facility] eGFR 103 >=60 mL/min/1. 73m2 LAB CHEMISTRY METHOD 03/23/2024 10:11 AM [facility] Comment:Calculation based on the??Chronic Kidney Disease Epidemiology Collaboration (CKD-EPI) equation refit??without adjustment for race. BUN/Creatinine Ratio 9.1 LAB CHEMISTRY METHOD 03/23/2024 10:11 AM [facility] Calcium 8.7 8.5 - 10.5 mg/dL LAB CHEMISTRY METHOD 03/23/2024 10:11 AM [facility] Blood Venous blood specimen / Unknown Venipuncture / Unknown 03/23/2024 4:56 AM EST 03/23/2024 8:44 AM EST us Darien Smith MD LAB BLOOD ORDERABLES Final Resul t [facility] [address] [place] [address], * (ABNORMAL) Complete blood count (03/23/2024 4:56 AM EST) [facility] WBC 8.2 4.8 - 10.8 K/mcL LAB HEMETOLOGY METHOD 03/23/2024 9:56 AM [facility] RBC 3.50(L) 3.80 - 4.80 M/mcL LAB HEMETOLOGY METHOD 03/23/2024 9:56 AM [facility] Hemoglobin 10.0(L) 11.5 - 16.0 g/dL LAB HEMETOLOGY METHOD 03/23/2024 9:56 AM [facility] Hematocrit 32.2(L) 35.0 - 47.0 % LAB HEMETOLOGY METHOD 03/23/2024 9:56 AM [facility] MCV 91.0 79.0 - 98.0 FL LAB HEMETOLOGY METHOD 03/23/2024 9:56 AM [facility] MCH 28.2 27.0 - 32.0 pcg LAB HEMETOLOGY METHOD 03/23/2024 9:56 AM [facility] MCHC 31.1(L) 32.0 - 37.0 g/dL LAB HEMETOLOGY METHOD 03/23/2024 9:56 AM [facility] RDW 15.5(H) 11.0 - 15.0 % LAB HEMETOLOGY METHOD 03/23/2024 9:56 AM [facility] Platelets 480(H) 130 - 400 K/mcL LAB HEMETOLOGY METHOD 03/23/2024 9:56 AM [facility] MPV 11.4(H) 7.0 - 11.0 FL LAB HEMETOLOGY METHOD 03/23/2024 9:56 AM [facility] NRBC 0.0 <1.0 % LAB HEMETOLOGY METHOD 03/23/2024 9:56 AM EST [facility] NRBC Absolute 0.00 <0.10 K/mcL LAB HEMETOLOGY METHOD 03/23/2024 9:56 AM EST [facility] Blood Venous blood specimen / Unknown Venipuncture / Unknown 03/23/2024 4:56 AM EST 03/23/2024 8:44 AM EST us Darien Smith MD LAB BLOOD ORDERABLES Final Resul t [facility] [address] [place] [address], documented in this encounter Visit Diagnoses Diagnosis Anemia, unspecified documented in this encounter Care Teams Assessor Relationship Specialty Start Date End Date Huong Johnson MD [address] [place] [address] PCP - General Internal Medicine 03/03/24 documented as of this encounter
[2024-09-05 09:09] VITALS: BMI 43.0
--- NOTE | 2024-09-06 09:12 | HO.ANESPROP2 ---
Documented by User: Kayla Amaya NP 09/06/24 09:16 HPI - Anesthesia Eval Consult details Narrative: 58yo F for Spinal Cord Stimulation Trial s/p Upper Endoscopy and Colonoscopy 01/2024 with TIVA Radiation induced heart disease: Follows [facility] [place] Cardiology - optimized to proceed with spinal stim. Last office visit 04/2024. CAD s/p stent 08/2022 Mod to severe Aortic stenosis MAURO = 1.09 Pericarditis 11/2022 tx'd with colchicine/prednisone - resolved h/o hodgkin's lymphoma in her 20s s/p mantle radiation s/p PRASHANT wedge resection 03/2023 [facility] Active Problems Active Problems: All Active Problems S/P laparoscopic sleeve gastrectomy (Acute) Preop cardiovascular exam (Acute) Abnormal thyroid function test (Acute) Post-thoracotomy pain (Acute) Current chronic use of inhaled steroid (Acute) Intercostal neuralgia (Acute) Dysphagia (Acute) Hospital discharge follow-up (Acute) S/P thoracotomy (Acute) Anemia (Acute) Lymphadenopathy (Acute) Abnormal radiologic finding of lung field (Acute) Pulmonary nodule (Acute) Pericarditis (Acute) Abnormal TSH (Acute) Chest discomfort (Acute) Chest pain (Acute) Pleural thickening (Acute) S/P cardiac catheterization (Acute ~2022) Ileitis (Acute) Tarsal tunnel syndrome, left lower limb (Acute) Low vitamin B12 level (Acute) Abnormal LFTs (Acute) History of Hodgkin's lymphoma (Acute ~1992) History of mantle field radiation therapy (Acute ~1992) Radiation-induced heart disease (Acute) CAD (coronary artery disease) (Acute) Stented coronary artery (Acute ~2022) Mitral stenosis (Acute) Aortic stenosis (Acute) Hyperlipidemia (Acute) Asthma (Acute) Environmental allergies (Acute) Hypothyroid (Acute) Tubular adenoma of colon (Acute) Anxiety and depression (Acute) Obesity (Acute) Past Medical History Medical History History of mantle field radiation therapy (~1992) Environmental allergies History of shingles CAD (coronary artery disease) Stented coronary artery (~2022) Hyperlipidemia Obesity Mitral stenosis Anxiety and depression Tubular adenoma of colon History of Hodgkin's lymphoma (~1992) Radiation-induced heart disease Aortic stenosis Asthma Hypothyroid Hepatic steatosis GERD (gastroesophageal reflux disease) Herpes Family History Family History Mother Colon cancer Father Hypertension Prostate cancer Son Diabetes Daughter Autism Family history of problems with anesthesia: No Surgical History Surgical History History of lung surgery History of lymph node excision (03/12/23) History of lung biopsy (02/11/23) History of repair of hiatal hernia (~2017) History of thoracentesis (~2018) History of ankle surgery History of section History of colonoscopy History of heart artery stent (~2022) History of arthroscopy of right shoulder History of sleeve gastrectomy (~2017) History of esophagogastroduodenoscopy (EGD) History of cholecystectomy History of Problems with Anesthesia: No Social History Social History Household Members: Spouse and Family Housing: House Are you a primary hospice care sales consultant to a significant other at home: No Do you presently have visiting nurse or other home services: No Alcohol intake: current Alcohol intake frequency: holidays/special occasions only Patient Tobacco Use Status: Never used Tobacco e-Cigarette/Vaping Use: Never Used Use of substances other than those prescribed or required for medical reasons: Yes Substance Use Type: Marijuana Substance Use Type Other:: edibles Are you DNR?: No Advance Directives: No Advance Directives Information Provided: Yes Patient : No : No Poor oral hygiene: No service: No 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 Allergies Allergy/AdvReac Type Severity Reaction Status Date / Time oxycodone (From PERCOCET) Allergy Intermediate HIVES Verified 08/05/24 11:52 Sulfa (Sulfonamide Allergy Intermediate HIVES Verified 08/05/24 11:52 Antibiotics) (SULFA (SULFONAMIDE ANTIBIOTICS)) sulfamethoxazole (From Allergy Mild Hives Verified 09/07/24 09:50 Bactrim) trimethoprim (From Bactrim) Allergy Mild Hives Verified 09/07/24 09:50 diatrizoate meglumine Allergy Unknown red rash Verified 08/05/24 11:52 (Gastrografin) Home Medications ?Medication ?Instructions ?Recorded ?Confirmed ?Last Taken ?Type morphine 15 mg immediate release 15 mg PO BID PRN Pain 02/08/20 07/04/24 Unknown History tablet lorazepam 0.5 mg tablet 0.5 mg PO BID PRN anxiety 08/19/21 07/04/24 Unknown History meclizine 12.5 mg tablet 12.5 mg PO DAILY PRN Vertigo 09/04/22 07/04/24 Unknown History cholecalciferol (vitamin D3) 50 50 mcg PO DAILY 12/01/22 07/04/24 Unknown History mcg (2,000 unit) capsule levothyroxine 125 mcg tablet 125 mcg PO DAILY 03/06/23 07/04/24 Unknown History (Levoxyl) sertraline 150 mg capsule 150 mg PO DAILY 07/01/24 07/04/24 Unknown History galcanezumab-gnlm 120 mg/mL mg subcut 07/04/24 07/04/24 Unknown History subcutaneous pen injector (Emgality Pen) Exam Height,Weight and Vital Signs: Height 5 ft 2 in Weight 106.594 kg Pertinent Lab Results Pertinent Lab Results: Laboratory Tests 07/25/24 09:56 WBC 10.4 Hgb 11.4 L Hct 36.1 L Plt Count 287 Sodium 141 Potassium 4.0 Chloride 109 H Carbon Dioxide 23 BUN 13 Creatinine 0.76 Narrative Narrative: ECHO 04/2024 Conclusions: - 1. Normal LV ejection fraction of 60 65% 2. Moderate to severe calcific aortic stenosis 3. Moderate calcific mitral stenosis 4. No gross pericardial effusion EKG 04/2024 Normal sinus rhythm left axis, nonspecific ST abn, voltage criteria for LVH, rate 87, QTc 438ms Assessment and Plan Assessment Anesthesia Assessment: Chart Reviewed Final Anesthetic Review Family History of Problems with Anesthesia: No History of Problems with Anesthesia: No Documented by User: Stephanie Estrada MD 09/07/24 11:38 [facility] Past Medical History Medical History History of mantle field radiation therapy (~1992) Environmental allergies History of shingles CAD (coronary artery disease) Stented coronary artery (~2022) Hyperlipidemia Obesity Mitral stenosis Anxiety and depression Tubular adenoma of colon History of Hodgkin's lymphoma (~1992) Radiation-induced heart disease Aortic stenosis Asthma Hypothyroid Hepatic steatosis GERD (gastroesophageal reflux disease) Herpes Family History Family History Mother Colon cancer Father Hypertension Prostate cancer Son Diabetes Daughter Autism Surgical History Surgical History History of lung surgery History of lymph node excision (03/12/23) History of lung biopsy (02/11/23) History of repair of hiatal hernia (~2017) History of thoracentesis (~2018) History of ankle surgery History of section History of colonoscopy History of heart artery stent (~2022) History of arthroscopy of right shoulder History of sleeve gastrectomy (~2017) History of esophagogastroduodenoscopy (EGD) History of cholecystectomy Social History Social History Household Members: Spouse and Family Housing: House Are you a primary hospice care sales consultant to a significant other at home: No Do you presently have visiting nurse or other home services: No Alcohol intake: current Alcohol intake frequency: holidays/special occasions only Patient Tobacco Use Status: Never used Tobacco e-Cigarette/Vaping Use: Never Used Use of substances other than those prescribed or required for medical reasons: Yes Substance Use Type: Marijuana Substance Use Type Other:: edibles Are you DNR?: No Advance Directives: No Advance Directives Information Provided: Yes Patient : No : No Poor oral hygiene: No service: No 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 Allergies Allergy/AdvReac Type Severity Reaction Status Date / Time oxycodone (From PERCOCET) Allergy Intermediate HIVES Verified 08/05/24 11:52 Sulfa (Sulfonamide Allergy Intermediate HIVES Verified 08/05/24 11:52 Antibiotics) (SULFA (SULFONAMIDE ANTIBIOTICS)) sulfamethoxazole (From Allergy Mild Hives Verified 09/07/24 09:50 Bactrim) trimethoprim (From Bactrim) Allergy Mild Hives Verified 09/07/24 09:50 diatrizoate meglumine Allergy Unknown red rash Verified 08/05/24 11:52 (Gastrografin) Home Medications ?Medication ?Instructions ?Recorded ?Confirmed ?Last Taken ?Type morphine 15 mg immediate release 15 mg PO BID PRN Pain 02/08/20 07/04/24 Unknown History tablet lorazepam 0.5 mg tablet 0.5 mg PO BID PRN anxiety 08/19/21 07/04/24 Unknown History meclizine 12.5 mg tablet 12.5 mg PO DAILY PRN Vertigo 09/04/22 07/04/24 Unknown History cholecalciferol (vitamin D3) 50 50 mcg PO DAILY 12/01/22 07/04/24 Unknown History mcg (2,000 unit) capsule levothyroxine 125 mcg tablet 125 mcg PO DAILY 03/06/23 07/04/24 Unknown History (Levoxyl) sertraline 150 mg capsule 150 mg PO DAILY 07/01/24 07/04/24 Unknown History galcanezumab-gnlm 120 mg/mL mg subcut 07/04/24 07/04/24 Unknown History subcutaneous pen injector (Emgality Pen) Exam Airway Mallampati Class: II TM Dist: >3cm Neck ROM: Full Loose/Missing/Broken Teeth: No Heart: RRR Lungs: CTA Assessment and Plan Assessment Anesthesia Assessment: Anesthesia Plan Discussed Final Anesthetic Review NPO: Yes ASA Class: III Final Preanesthetic Review: Meds/Allgs Chart Reviewed, Consent Obtained/Reviewed and Anes Risks/Benef Reviewed Patient Risk: Intermediate Procedure Risk: Low Anesthetic Plan Anesthetic Plan: MAC: Disposition: Standard PACU
[2024-09-07] VITALS (9 sets, daily range): BP systolic 125–157; BP diastolic 40–76; PULSE 60–74; RESP 12–16; TEMP 36.1–36.4; O2SAT 96–98; BMI 43.1
--- NOTE | ~2024-09-07 | FL_ITS ---
EXAMINATION: FL GUIDANCE ONLY HISTORY: SPINAL CORD STIM TRIAL COMPARISON: None available. TECHNIQUE: Fluoroscopy time: 5 minutes. Cumulative Dose: 115.97 mGy. DAP: 14.932 mGym2 Images: 5. FINDINGS: Fluoroscopic spot films of the thoracic spine demonstrate a stimulator in place with the tip of the lead at the level of the T4-5 intervertebral disc space. FL/FL guidance in OR IMPRESSION: Fluoroscopy during procedure. Please see procedure report for additional information. Electronically signed by: Patric Brian MD 09/07/2024 03:09 PM EDT
[2024-09-07] MEDS: Lactated Ringers 1,000 ML 100 ML IVCONT (10:35)
[2024-09-07 11:18] LABS: MRSA Nasal PCR NEGATIVE (Negative); SA Nasal PCR NEGATIVE (Negative)
--- NOTE | 2024-09-07 12:05 | MHC.SHP ---
Pre-Procedural Eval Section A - 24 Hr Update-Section A only Date of Service: 09/07/24 The patient is an INPATIENT: No Changes since office visit: Yes Patient answered all questions The patient has been examined within 24 hours of the surgical procedure. The History & Physical has been completed within 30 days and I have reviewed it.: No Section B - Complete if H&P > 30 days Chief Complaint: Chest wall pain; intercostal neuralgia Details of Present Illness: Post-thoracotomy neuropathic pain Relevant Family History (Specify if Yes): No Relevant Social History: None Present Medications: see Short Stay Collaborative assessment Medical History: No relevant PMH History of Previous Operations: No relevant previous surgery Allergies: Allergies Allergy/AdvReac Type Severity Reaction Status Date / Time oxycodone (From PERCOCET) Allergy Intermediate HIVES Verified 08/05/24 11:52 Sulfa (Sulfonamide Allergy Intermediate HIVES Verified 08/05/24 11:52 Antibiotics) (SULFA (SULFONAMIDE ANTIBIOTICS)) sulfamethoxazole (From Allergy Mild Hives Verified 09/07/24 09:50 Bactrim) trimethoprim (From Bactrim) Allergy Mild Hives Verified 09/07/24 09:50 diatrizoate meglumine Allergy Unknown red rash Verified 08/05/24 11:52 (Gastrografin) Review of Systems Sugical H&P ROS: Negative: Constitution, Cardiovascular and Respiratory Exam Surgical H&P Exam: Normal: HEENT, Normal: Heart and Normal: Lungs Plan Diagnosis/Plan: Unchanged I have reviewed the history and physical and performed a pertinent physical examination on my patient. No changes have occurred unless specified. Time Spent With Patient Time: Total time managing care of this patient today ____ minutes.
--- NOTE | 2024-09-07 12:06 | P.BOP_ITS ---
Brief Operative Note Date of Service: 09/07/24 Pre-op diagnosis: CRPS Procedure: Thoracic SCS Trial Implants: [employer] 16 contact trial leads Surgeon: Oneil Carrillo MD Anesthesia: MAC Was an Computer Meteorologist used for this Procedure?: No Estimated blood loss (mL): 1 Pathology: none sent Condition: stable Disposition: PACU
--- NOTE | 2024-09-07 12:07 | P.OP_ITS ---
Operative Note Operative Note Date of Service: 09/07/24 Narrative: Preop Diagnosis: Complex Regional Pain Syndrome Postop Diagnosis: Same Percutaneous Spinal Cord Stimulator Trial, Thoracic After obtaining written consent, pre-procedure blood pressure and heart rate were recorded and are in the nursing record for review. A peripheral IV was started. Antibiotics, cefazolin 2 gram, were given intraoperatively. The patient was placed in a prone position.? The patient was sedated by the anesthesiologist. The thoracolumbar area was widely prepped with ChloraPrep, allowed to dry and draped in sterile fashion. Fluoroscopy was used to identify the target interlaminar spaces and appropriate needle insertion sites. The skin and subcutaneous tissue was anesthetized with 0.5% lidocaine. Two separate 14 gauge Epimed coude epidural needles were then advanced from this point in a paramedian approach to the epidural space opening at T11/T12 interspace, where loss of resistance was found using air. No paresthesias were elicited with needl e placement. No CSF or heme was present upon needle placement. A guide wire was then used to confirm placement into the epidural space at each level under live fluoroscopy. The 1x16 stimulator lead wire was then threaded to the top of T4 in the right and left parasagittal positions under live fluoroscopy. The leads advanced midline and dorsally. The patient was woken up and appropriate coverage was obtained. The needles were then completely removed under live fluoroscopy. The stimulator wires were then secured with steristrips, Mastisol, gauze and tegaderm for skin dressing. The patient tolerated the procedure well and no complications were encountered. Following the procedure the patient's vital signs were stable. The patient was discharged home in good condition after being given discharge instructions. Time Out: Immediately prior to the procedure, the following was verbally confirmed that there is a signed consent form and that the correct patient, planned procedure, site and side are consistent with documentation and that necessary equipment and/or blood products are available prior to the start of the case. Complications: none EBL: <2 cc
== END 2024-09-07 15:36 | disposition home or self-care (01) ==
PROVIDERS: Registered Nurse Emergency; PCP Internal Medicine; Visit Provider Internal Medicine
PROC: (CPT 63650; principal; 2024-09-07 12:00)
DX: G89.12 Acute post-thoracotomy pain (principal); G58.0 Intercostal neuropathy; R07.82 Intercostal pain; I25.10 Atherosclerotic heart disease of native coronary artery without angina pectoris; Z95.5 Presence of coronary angioplasty implant and graft; I35.0 Nonrheumatic aortic (valve) stenosis; E78.5 Hyperlipidemia, unspecified; Z85.71 Personal history of Hodgkin lymphoma; J45.909 Unspecified asthma, uncomplicated; Z92.3 Personal history of irradiation; F41.9 Anxiety disorder, unspecified; Z88.2 Allergy status to sulfonamides; Z88.5 Allergy status to narcotic agent; Z88.8 Allergy status to other drugs, medicaments and biological substances; Z79.899 Other long term (current) drug therapy; Z98.84 Bariatric surgery status; Z98.890 Other specified postprocedural states
CPT/HCPCS: 63650 ×2; 87640; 87641; C1897; J0690; J2003; J2250; J2704; J3010

== ENCOUNTER → 2024-09-07 09:20 | Outpatient (BNV) | payer BC, SELFPAY ==
[2024-07-21 08:49] VITALS: BP 100/50; BP 114/58; BP 156/54; BMI 40.1
== END ==
PROVIDERS: PCP Internal Medicine; Visit Provider Internal Medicine
DX: G90.50 Complex regional pain syndrome I, unspecified (principal)
CPT/HCPCS: 63650

== ENCOUNTER 2024-09-14 11:04 | Outpatient (AMB) | payer BC, SELFPAY ==
[2024-07-21 08:49] VITALS: BP 100/50; BP 114/58; BP 156/54; BMI 40.1
[2024-09-14 11:08] VITALS: BP 140/63; PULSE 85; RESP 16; O2SAT 97; BMI 42.1
--- NOTE | 2024-09-14 11:08 | A.OFFVIS_ITS ---
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 Required: No Allergies oxycodone (From PERCOCET) Allergy (Intermediate, Verified 09/14/24 11:14) HIVES Sulfa (Sulfonamide Antibiotics) (SULFA (SULFONAMIDE ANTIBIOTICS)) Allergy (Intermediate, Verified 09/14/24 11:14) HIVES sulfamethoxazole (From Bactrim) Allergy (Mild, Verified 09/14/24 11:14) Hives trimethoprim (From Bactrim) Allergy (Mild, Verified 09/14/24 11:14) Hives diatrizoate meglumine (Gastrografin) Allergy (Unknown, Verified 09/14/24 11:14) red rash Medication List - Last Reconciled 09/14/24 by Christiane Gill LPN albuterol sulfate 90 mcg/actuation 2 puffs inhalation DAILY PRN aspirin (Ecotrin Low Strength) 81 mg PO DAILY atorvastatin 40 mg PO DAILY 90 days cane As directed cholecalciferol (vitamin D3) 50 mcg PO DAILY ggvbwvfddsd-wmdwigabd-hygdmklh 100-62.5-25 mcg (Trelegy Ellipta) 1 inh PO DAILY galcanezumab-gnlm (Emgality Pen) mg subcut ipratropium-albuterol 0.5 mg-3 mg(2.5 mg base)/3 mL 3 mL inhalation Q6-8H PRN levothyroxine (Levoxyl) 125 mcg PO DAILY lidocaine 5% 1 patch topical DAILY lorazepam 0.5 mg PO BID PRN meclizine 12.5 mg PO DAILY PRN mesalamine ER 1.5 grams (4 x 0.375 gram) PO DAILY Held on 08/18/24. Instructions: Doctor's Order morphine 15 mg PO BID PRN pantoprazole 40 mg PO DAILY pregabalin 100 mg PO QID sertraline 150 mg PO DAILY ursodiol 500 mg PO BID jesus alberto (Ultra-Light Rollator misc) As directed HPI HPI S/p [employer] SCS Trial 09/07/24: Details: 58-year-old female with complex regional pain syndrome of the left chest wall presenting for follow-up after trial of thoracic spinal cord stimulation. Patient reports between 50-75% pain relief of her symptoms. She had diffuse spots that were not appropriately stimulated but overall she is very pleased with the outcome of the trial and is interested in proceeding with an implant as soon as possible to help manage her chronic intractable pain. - Appears afebrile. - Alert and oriented. - Mood and affect appropriate. - Follows and participates in conversation appropriately. - Respiratory effort is unlabored. - Able to transition from sit to stand unassisted. - Ambulates with bilaterally normal heel strike and toe off. - Able to stand and walk on toes and heels. - Leads were removed with tips intact. [facility] Medical History History of mantle field radiation therapy (~1992) Environmental allergies History of shingles CAD (coronary artery disease) Stented coronary artery (~2022) Hyperlipidemia Obesity Mitral stenosis Anxiety and depression Tubular adenoma of colon History of Hodgkin's lymphoma (~1992) Radiation-induced heart disease Aortic stenosis Asthma Hypothyroid Hepatic steatosis GERD (gastroesophageal reflux disease) Herpes Surgical History History of lung surgery History of lymph node excision (03/12/23) History of lung biopsy (02/11/23) History of repair of hiatal hernia (~2017) History of thoracentesis (~2018) History of ankle surgery History of section History of colonoscopy History of heart artery stent (~2022) History of arthroscopy of right shoulder History of sleeve gastrectomy (~2017) History of esophagogastroduodenoscopy (EGD) History of cholecystectomy Family History Mother Colon cancer Father Hypertension Prostate cancer Son Diabetes Daughter Autism Social History Household Members: Spouse and Family Housing: House Are you a primary residential caregiver to a significant other at home: No Do you presently have visiting nurse or other home services: No Alcohol intake: current Alcohol intake frequency: holidays/special occasions only Patient Tobacco Use Status: Never used Tobacco e-Cigarette/Vaping Use: Never Used Substance Use Type: Marijuana service: No 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: employed 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 Patient is on board with the plan. Coding Level of Care Code Est Pt Level 3 (89852) Diagnoses CRPS (complex regional pain syndrome type I) G90.50
--- OUTSIDE RECORDS SUMMARY | 2024-09-14 12:16 | XMS_ITS | Encounter Summary ---
Author Organization [facility] Address [address] [place] [address] Care Team Providers Care Lens Molding Equipment Operator Name Role Phone Huong Johnson MD Primary Care Provider [phone] Encounter Details Date Type Department Care Team (Late st Contact Info) Description 03/22/2024 Lab Requisition [facility] - Main Lab [address] [facility] [place] [address] Darien Smith MD [address] [place] [address] [address], [phone] Anemia, unspecified Social History Tobacco Use [...] your loved ones. For example, early childhood or elderly care for an older adult? [...] mmol/L LAB CHEMISTRY METHOD 03/23/2024 10:11 AM [facility] Potassium 4.7 3.5 - 5.5 mmol/L LAB CHEMISTRY METHOD 03/23/2024 10:11 AM [facility] Chloride 109 96 - 110 mmol/L LAB CHEMISTRY METHOD 03/23/2024 10:11 AM [facility] CO2 28 21 - 32 mmol/L LAB CHEMISTRY METHOD 03/23/2024 10:11 AM [facility] Anion Gap 4 3 - 11 LAB CHEMISTRY METHOD 03/23/2024 10:11 AM [facility] Glucose 86 70 - 100 mg/dL LAB CHEMISTRY METHOD 03/23/2024 10:11 AM [facility] BUN 6 5 - 25 mg/dL LAB CHEMISTRY METHOD 03/23/2024 10:11 AM [facility] Creatinine 0.66 0.50 - 1.10 mg/dL LAB CHEMISTRY METHOD 03/23/2024 10:11 AM [facility] eGFR 103 >=60 mL/min/1. 73m2 LAB CHEMISTRY METHOD 03/23/2024 10:11 AM [facility] Comment:Calculation based on the Chronic Kidney Disease Epidemiology Collaboration (CKD-EPI) equation refit without adjustment for race. BUN/Creatinine Ratio 9.1 LAB CHEMISTRY METHOD 03/23/2024 10:11 AM [facility] Calcium 8.7 8.5 - 10.5 mg/dL LAB CHEMISTRY METHOD 03/23/2024 10:11 AM [facility] Blood Venous blood specimen / Unknown Venipuncture / Unknown 03/23/2024 4:56 AM EST 03/23/2024 8:44 AM EST us Darien Smith MD LAB BLOOD ORDERABLES Final Resul t [facility] [address] [place] [address], * (ABNORMAL) Complete blood count (03/23/2024 4:56 AM EST) [facility] WBC 8.2 4.8 - 10.8 K/mcL LAB HEMETOLOGY METHOD 03/23/2024 9:56 AM [facility] RBC 3.50(L) 3.80 - 4.80 M/mcL LAB HEMETOLOGY METHOD 03/23/2024 9:56 AM [facility] Hemoglobin 10.0(L) 11.5 - 16.0 g/dL LAB HEMETOLOGY METHOD 03/23/2024 9:56 AM [facility] Hematocrit 32.2(L) 35.0 - 47.0 % LAB HEMETOLOGY METHOD 03/23/2024 9:56 AM [facility] MCV 91.0 79.0 - 98.0 FL LAB HEMETOLOGY METHOD 03/23/2024 9:56 AM [facility] MCH 28.2 27.0 - 32.0 pcg LAB HEMETOLOGY METHOD 03/23/2024 9:56 AM [facility] MCHC 31.1(L) 32.0 - 37.0 g/dL LAB HEMETOLOGY METHOD 03/23/2024 9:56 AM [facility] RDW 15.5(H) 11.0 - 15.0 % LAB HEMETOLOGY METHOD 03/23/2024 9:56 AM [facility] Platelets 480(H) 130 - 400 K/mcL LAB HEMETOLOGY METHOD 03/23/2024 9:56 AM [facility] MPV 11.4(H) 7.0 - 11.0 FL LAB HEMETOLOGY METHOD 03/23/2024 9:56 AM [facility] NRBC 0.0 <1.0 % LAB HEMETOLOGY METHOD 03/23/2024 9:56 AM EST [facility] NRBC Absolute 0.00 <0.10 K/mcL LAB HEMETOLOGY METHOD 03/23/2024 9:56 AM EST [facility] Blood Venous blood specimen / Unknown Venipuncture / Unknown 03/23/2024 4:56 AM EST 03/23/2024 8:44 AM EST us Darien Smith MD LAB BLOOD ORDERABLES Final Resul t [facility] [address] [place] [address], documented in this encounter Visit Diagnoses Diagnosis Anemia, unspecified documented in this encounter Care Teams Lens Molding Equipment Operator Relationship Specialty Start Date End Date Huong Johnson MD [id number] [place] [address] PCP - General Internal Medicine 03/03/24 documented as of this encounter
== END 2024-09-14 11:23 | disposition home or self-care (01) ==
LOC: HO.PMC 11:04
PROVIDERS: PCP Internal Medicine; Visit Provider Internal Medicine
DX: G90.50 Complex regional pain syndrome I, unspecified (principal)
CPT/HCPCS: 99024

== ENCOUNTER 2024-10-03 11:13 | Outpatient (AMB) | payer BC, SELFPAY ==
[2024-07-21 08:49] VITALS: BP 100/50; BP 114/58; BP 156/54; BMI 40.1
--- OUTSIDE RECORDS SUMMARY | 2024-09-29 23:59 | XMS_ITS | Continuity of Care Document ---
Author Organization [facility] Address [address], [place] [address]- Care Team Providers Care Dining Room Host/Hostess Name Role Phone Huong Johnson MD Primary Care Physician [phone] [id number] Date(s): 09/22/24 - 09/29/24 [facility] [address], [place] [address] Encounter Diagnosis Esophageal reflux (GERD)(Discharge Diagnosis) - 09/22/24 History of gastric restrictive surgery(Discharge Diagnosis) - 09/22/24 Migraine(Discharge Diagnosis) - 09/22/24 Mood disorder(Discharge Diagnosis) - 09/22/24 Severe obesity(Discharge Diagnosis) - 09/22/24 CRPS 1, lower extremity(Discharge Diagnosis) - 09/22/24 Attending Physician: Huong Johnson MD Encounter Type: Office Visit Allergies, Adverse Reactions, Alerts Substance Criticality Severity Reaction Reaction Severity Status sulfonamides hives Active oxyCODONE Itchy Skin rash Active Percocet 5/ itching Activ e Gastrografin Active Vicodin itch Active Immunizations Given [...] vaccine, inactivated 6 12/30/11 Gi dayana SARS-CoV-2(COVID-19)mRNA-LNP vac(dif521) 12/26/23 Recorded tetanus/diphtheria/pertussis, acel(Tdap) 7 02/16/23 Given tetanus/diphtheria/pertussis, acel(Tdap) 03/01/12 Given VHOL-JrF-5rBLH 12y+ bivalent booster vax 03/07/22 Recorded SARS-CoV-2 mRNA (xglbiuf-ahqt-wdgph) vax 09/08/21 Recorded SARS-CoV-2 (COVID-19) mRNA BNT-162b2 [...] 11/03/16 Recorde d 1Result Comment: Done at [facility] 2Result Comment: [facility] [id number] 3Result Comment: [facility] [id number] 4Result Comment: [12/01/2016] [facility] 5Result Comment: [02/14/2013] [facility] 6Admin Note: work 7Result Comment: [id number] 8Result Comment: Covid 19 9Result Comment: Covid 19 10Result Comment: Done at [facility] 11Result Comment: [12/01/2016] [facility] Medications albuterol CFC free 90 mcg/inh inhalation aerosol 2, puffs, Inhalation, Every 6 hours, PRN, # 8.5 Gm, Refills 2, Tot. Refills 2, Maintenance, 05/17/2409:25:00 AM EDT, Inhaler, Route to Pharmacy Electronically, IDPDP_[id number], [facility] #[id number], 157.4, cm, 05/18/23 9:45:00 EDT, Height, 93.9, [...] 30 days, Maintenance Dose, # 1 kit, 5 Refills, Soft Stop, 08/28/24 8:41:00 AM EDT, [facility] #[id number], Partial fill upon patient request if the prescription is for a schedule II opioid drug., 157.4, cm, 06/15/24 15:14:00 EDT, Height, 105.6, kg, 06/14/24 13:00:00 EDT, Dry Weight Start Date: 08/28/24 Status: Ordered Quantity: 1.0 Unit: kit Repeat number: 6 Guaiatussin = 400 mg, By Mouth, 4 times a day, 0 Refills, Maintenance, 03/09/24 9:07:00 AM EST, Partial fill uponpatient request if the prescription is for a schedule II opioid drug. Start Date: 03/09/24 Status: Ordered Repeat number: 1 Levoxyl 0.125 mg oral tablet 1 tablet, By Mouth, Daily, # 90 tablet, 1 Refills, Maintenance, 09/18/24 2:43:00 PM EDT, [facility] #[id number], 157.4, cm, 06/15/24 15:14:00 EDT, Height, 105.6, kg, 06/14/24 13:00:00 EDT, Dry Weight Start Date: 09/18/24 Status: Ordered Quantity: 90.0 Unit: tablet Repeat number: 1 lidocaine 1.8% topical film 1 patch, Topically, [...] Refills, Maintenance, 06/01/24 3:18:00 PM EDT, Tablet, [facility] #[id number], Partial fill upon patient request if the prescription is for a schedule II opioid drug., 157.4, cm, 04/04/24 11:46:00 EST, Height,101.9, kg, 04/04/24 11:46:00 EST, Dry Weight Start Date: 06/01/24 Status: Ordered Quantity: 60.0 Unit: tablet Repeat number: 1 Indications: Anxiety disorder, unspecified; Mirena 52 mg intrauteral device 1 each = 52 mg, Once, changed in 2014, 0 Refills, Maintenance, 12/07/09 10:16:00 AM EDT Start Date: 12/07/09 Status: Ordered Repeat number: 1 pantoprazole 40 mg oral delayed release tablet 1 tablet, By Mouth, Daily, # 90 tablet, 1 Refills, Maintenance, 09/22/24 12:33:00 PM EDT, 157.4, cm,06/15/24 15:14:00 EDT, Height, 105.6, kg, 06/14/24 13:00:00 EDT, Dry Weight Start Date: 09/22/24 Status: Ordered Quantity: 90.0 Unit: tablet Repeat [...] Daily, # 135 tablet, 1 Refills, Maintenance, 09/22/24 12:34:00 PM EDT, [facility] #[id number], 157.4, cm, 06/15/24 15:14:00 EDT, Height, 105.6, kg, 06/14/24 13:00:00 EDT, Dry Weight Start Date: 09/22/24 Stop Date: 03/21/25 Status: Ordered Quantity: 135.0 Unit: tablet Repeat [...] Active Tubular adenoma of colon Confirmed Active Diagnosis Diagnosis Type Effective Dates Health Status Clinical Service Informant Esophageal reflux (GERD) Discharge Diagnosis 09/22/24 History of gastric restrictive surgery Discharge Diagnosis 09/22/24 Migraine Discharge Diagnosis 09/22/24 Mood disorder Discharge Diagnosis 09/22/24 Severe obesity Discharge Diagnosis 09/22/24 CRPS 1, lower extremity Discharge Diagnosis 09/22/24 Social History Social History Type Response Smoking Status Never smoker entered on: 03/16/13 Sex Sex Representation Female (finding) Note * Dorene Devlin: PERFORM Event Display: Patient Education/Instruction Authored Date: [id number] Ambulatory Adult Visit Summary [facility] [address] [place] [address] Name: PILO HAYDEN : 1965?? Visit: 09/22/2024 10:53?? Ambulatory Visit Instructions ?? Your Care Team Primary Care Provider Alex MCCONNELL, Huong Esteves? This Visit Provider Huong Johnson MD Your Diagnosis Esophageal reflux (GERD) History of gastric restrictive surgery Migraine Mood disorder Severe obesity Adjustment disorder with mixed anxiety and depressed mood CRPS 1, lower extremity What to do next Instructions From Your Provider [facility] [address] [place] [id number] [phone] ?? [facility] [address], [address] [place] [address] [email or web address] ? Dr.Yolanda Asher [facility] [place] [address] ?? [facility]?? [address] [place] [address],?? Scheduled Follow-Up Appointments Thursday 2:00 PM EDT ?? With: Selma Schroeder Where: [facility] Status: Pending Thursday 10:00 AM EDT ?? With: Neetu YU, Latisha Ewing Where: [facility] [address] [place] [address]- Status: Pending Follow-Up Appointments Follow Up with??Alex MCCONNELL, Huong Esteves When:??01/19/2025 01:40 PM EST Where: [address] [facility] [place] [address]- Medications The list below reflects the information [...] oral tablet) 1 tab(s) Oral Daily Unchanged Cholecalciferol (Vitamin D3 oral tablet) 1 tab(s) Oral Daily 2000 units ?? Unchanged fluticason/ umeclidinium/ vilant (Trelegy Ellipta 100 mcg-62.5 mcg-25 mcg/ inh inhalationpowder) 1 inhalation Inhalation Daily at the same time every day ?? Unchanged galcanezumab (Emgality Prefilled Pen 120 mg/ mL subcutaneous solution) 120 Milligram Subcutaneous Injection Every 30 days Maintenance Dose ?? Unchanged Guaifenesin (Guaiatussin) 400 Milligram Oral 4 times a day Unchanged Levonorgestrel (Mirena 52 mg intrauteral device) 1 Each Once changed in 2014 ?? Unchanged Levothyroxine (Levoxyl 0.125 mg oral tablet) 1 tab(s) Oral Daily Unchanged Lidocaine Topical (lidocaine 1.8% topical film) 1 patch(es) Topically Daily leave on up to 12 hours ?? Unchanged Lorazepam (LORazepam 0.5 mg oral tablet) 1 tab(s) Oral Twice a day as needed for as needed for anxiety Anxiety Unchanged Mesalamine (Apriso 0.375 g oral capsule, extended release) 4 capsule Oral Daily in the morning Unchanged Pantoprazole (pantoprazole 40 mg oral delayed release tablet) 1 tab(s) Oral Daily Pickup at [facility] Unchanged Pregabalin (pregabalin 50 mg oral capsule) 2 capsules Oral 5 times a day Unchanged Sertraline (sertraline 100 mg oral tablet) 1.5 tab(s) Oral Daily Duration: 90 Days Pickup at [facility] #[id number] Unchanged Ursodiol (ursodiol 500 mg oral tablet) 1 tab(s) Oral Twice a day Pharmacy Information [id number]: [address] [place] [address] [phone] [facility] #[id number]: [address] [place], [place] [id number] [phone] ?? What How Much When Comments Stop Taking Nortriptyline (nortriptyline 10 mg oral capsule) See instructions TAKE 1 CAPSULE BY MOUTH DAILY AT BEDTIME ?? Medications and Immunizations Administered Medications Given During [...] are strongly encouraged to quit. Please call [facility] [facility] at [phone] or [phone] ([phone]) or log in to [email or web address] for referrals to smoking cessation programs. ?? The National Suicide Prevention Hotline is available 29/09 if you or someone you know needs to find a reason to keep living. By calling 2-619-944-Help [employer]ed[employer] (5251) you'll be connected to a skilled, trained counselor at a crisis center in your area. [facility] [employer] [facility] You can view and manage your care through the patient portal or by using a health care dipak of your choosing. [employer] is a website that allows you to securely view your medical information including your hospital discharge summary, office visit summaries, medications and follow-up visits. You can also request appointments, renew medications, and request access to your medical information using a health care dipak of your choosing, or just ask a question. You can enroll at [email or web address] or register during your next office visit. [facility], in keeping with [facility] guidance, no longer requires face masks [...] primary care provider, you may find a [facility] [employer] provider by calling [facility] at [phone]. Patient Care team information Care Team Personnel Name: Huong Johnson MD Position: [facility] Physician - Primary Care Member Role: PCP Address: [address] [place] [address] Adult & Pediatric [place], [place] [address] Telecom: Name: Deann Sethi RN Position: [facility] RN Member Role: Primary Care Nurse Name: Ernestine Norris RN Position: [facility] RN Member Role: Primary Care Nurse Name: Mariela Wild MD Position: [facility] Physician - Endocrinology Member Role: [employer] Consult[employer] Physician Care Team Related Persons Name: JACKELYN SIOMARA Insurance Providers Guarantor name: PILO formerly [facility] Plan Information #: 1 Payer: [employer] [facility] Payer Identifier: NA Member Number: [id number] Group Number: [id number] Subscriber Identifier: [id number] Relationship to Subscriber: spouse Coverage Type: NA Coverage Verification Date: NA Telecom: NA Address:
[2024-10-03 11:14] VITALS: BP 120/68; PULSE 68; O2SAT 99; BMI 43.5
--- NOTE | 2024-10-03 11:14 | A.OFFVIS_ITS ---
Vital Signs 10/03/24 11:14 Height 5 ft 2 in Weight 238 lb 1.588 oz BMI 43.5 BP 120/68 Blood Pressure Location Lt brachial Position Sitting Pulse 68 Pulse Source Pulse Oximeter Pulse Oximetry (%) 99 Oxygen Delivery Method Room Air Intake Visit Reasons: Follow up Allergies oxycodone (From PERCOCET) Allergy (Intermediate, Verified 10/03/24 11:19) HIVES Sulfa (Sulfonamide Antibiotics) (SULFA (SULFONAMIDE ANTIBIOTICS)) Allergy (Intermediate, Verified 10/03/24 11:19) HIVES sulfamethoxazole (From Bactrim) Allergy (Mild, Verified 10/03/24 11:19) Hives trimethoprim (From Bactrim) Allergy (Mild, Verified 10/03/24 11:19) Hives diatrizoate meglumine (Gastrografin) Allergy (Unknown, Verified 10/03/24 11:19) red rash HPI HPI Follow up: Details: Rose Marie is a pleasant 58 year old female, never smoker, with underlying history of asthma, moderate aortic and mitral valve stenosis and h/o hodgkin's lymphoma in her 20s s/p mantle radiation, s/p left thoracentesis and pleurodesis, in [address] Flowers for recurrent pleural effusions, negative for malignancies. On 03/12/23 she underwent left mini thoracotomy with wedge resection of PRASHANT and excision of right groin lymph node with Dr. Washington for PET avid findings. Biopsy negative for carcinoma. Repeat CT chest from 01/2024 revealed mild interval increase in thickness of the FDG avid nodularity along the superior left mediastinal pleura, with no noted new pulmonary nodules. She was evaluated by Dr. Harris for further evaluation, who will continue to monitor patient with serial CTs. Will have follow up in December 2024. Since the last visit she feels she is back to a new baseline continuing with dyspnea since her admission to [facility] 03/03 for acute hypoxic respiratory failure secondary to unilateral PNA. Repeat CT 06/2024 revealed resolution of PNA. She has been suboptimally controlled on Trelegy 100 mch previously discussed increasing which she deferred however is agreeable today. Of note, patient evaluated by pain management and will be undergoing SCS placement for post thoracotomy pain. [facility] Medical History History of mantle field radiation therapy (~1992) Environmental allergies History of shingles CAD (coronary artery disease) Stented coronary artery (~2022) Hyperlipidemia Obesity Mitral stenosis Anxiety and depression Tubular adenoma of colon History of Hodgkin's lymphoma (~1992) Radiation-induced heart disease Aortic stenosis Asthma Hypothyroid Hepatic steatosis GERD (gastroesophageal reflux disease) Herpes Surgical History History of lung surgery History of lymph node excision (03/12/23) History of lung biopsy (02/11/23) History of repair of hiatal hernia (~2017) History of thoracentesis (~2018) History of ankle surgery History of section History of colonoscopy History of heart artery stent (~2022) History of arthroscopy of right shoulder History of sleeve gastrectomy (~2017) History of esophagogastroduodenoscopy (EGD) History of cholecystectomy Family History Mother Colon cancer Father Hypertension Prostate cancer Son Diabetes Daughter Autism Social History Household Members: Spouse and Family Housing: House Are you a primary lpn care manager to a significant other at home: No Do you presently have visiting nurse or other home services: No Alcohol intake: current Alcohol intake frequency: holidays/special occasions only Patient Tobacco Use Status: Never used Tobacco e-Cigarette/Vaping Use: Never Used Substance Use Type: Marijuana service: No 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: employed 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 Review of Systems Const Denies chills, Denies excessive sweating, Denies fever(s), Denies headache(s) and Denies night sweats Eyes Denies dry eyes, Denies irritation and Denies itchy eyes ENT Reports Normal hearing present, Denies headache(s), Denies nasal discharge, Denies post nasal drip and Denies sore throat Card Denies chest pain with activity, Denies claudication, Denies leg edema, Reports dyspnea on exertion, Denies orthopnea and Denies paroxysmal nocturnal dyspnea Resp Denies chest congestion, Reports cough, Denies excessive phlegm production, Denies pain on inspiration, Denies pain with cough, Reports dyspnea on exertion, Denies stridor and Denies wheezing Musc Denies myalgias Neuro Reports Normal hearing present and Denies headache(s) Endo Denies excessive sweating Terrance/Lymph Denies lymphadenopathy Aller/Immun Denies itchy eyes, Denies seasonal rhinorrhea and Denies wheezing Physical Exam Vital Signs: Last Vital Signs Pulse 68 10/03/24 11:14 BP 120/68 10/03/24 11:14 Pulse Ox 99 10/03/24 11:14 Oxygen Delivery Method Room Air 10/03/24 11:14 BMI result Body Mass Index 43.5 Const General: cooperative, healthy appearing, comfortable, no acute distress, well developed and alert Nutritional Appearance: obese Orientation/consciousness: patient oriented x3 Limitations: no limitations HEENT Head: Yes normal to inspection, Yes normocephalic and Yes atraumatic Ears: hearing grossly normal bilaterally and external ears normal Eyes General: appearance normal, both eyes and all related structures Eyelids: Yes eyelids normal Sclerae: sclerae normal EOM: EOMs intact bilaterally Neck Neck: Yes normal visual inspection and Yes no lymphadenopathy Lymphatic: no lymphadenopathy noted Chest Chest palpation & inspection: normal inspection of the chest Resp Effort & Inspection: normal respiratory effort, able to speak in complete sentences, no audible wheezes, no cough, no stridor, not tachypneic, no tripod positioning and no use of accessory muscles Auscultation: clear to auscultation bilaterally Cardio Jugular venous distension: no JVD Rate: regular rate Rhythm: regular rhythm Skin Other: warm, dry General skin exam: no rashes or lesions noted Neuro General: patient oriented x3 Cranial nerves: Yes Normal hearing present Cognition (Neuro): normal cognition Gait exam (Neuro): Normal gait present Extrem General: Yes normal to inspection, Yes capillary refill normal, Yes no clubbing, cyanosis or edema and Yes no pedal edema Psych Appearance: grossly normal and well kempt Speech and movement: Normal speech and movement present and Clear speech present Affect: normal affect Attitude: cooperative Thought process: Normal thought process present Thought content: Normal thought content present Insight: Good insight present (Psych) Judgement: Good judgement present (Psych) Assessment & Plan Assessment & Plan (1) Asthma: Code(s): J45.909 - Unspecified asthma, uncomplicated Category: Medical (2) History of mantle field radiation therapy: Onset Date: ~1992 Code(s): Z92.3 - Personal history of irradiation Category: Medical (3) Pleural thickening: Code(s): J92.9 - Pleural plaque without asbestos Category: Medical (4) History of Hodgkin's lymphoma: Onset Date: ~1992 Comment: (treated with radiation in 1992 - in remission) Code(s): Z85.71 - Personal history of Hodgkin lymphoma Category: Medical (5) Abnormal radiologic finding of lung field: Code(s): R91.8 - Other nonspecific abnormal finding of lung field Category: Medical (6) Intercostal neuralgia: Code(s): G58.8 - Other specified mononeuropathies Category: Medical Plan At this time, Rose Marie reports suboptimal control with Trelegy 100 mcg, will increase to 200 mcg. Encouraged increase use of DuoNeb PRN. She is aware to call if symptoms change or worsen. She will continue to be monitored through Dr. Harris's office with chest CTs, next scheduled for December 2024. Will also send for updated PFT as prior from 2022. All questions were answered and patient is in agreement of plan. Will follow up in 3 months or sooner if needed. Orders: Orders PFT pulmonary function test Today J45.909 - Unspecified asthma, uncomplicated Medications: New mkibxczcllx-zybktkfmc-piwjhffs 200-62.5-25 mcg (Trelegy Ellipta) 1 inh inhalation DAILY 180 ea 1RF Refilled albuterol sulfate 90 mcg/actuation 2 puffs inhalation DAILY PRN 1 ea 3RF asthma Discontinued xqzbupwjiid-tirnjuzdr-mlwflotk 100-62.5-25 mcg (Trelegy Ellipta) Discontinued Reason: Patient Completed Course 1 inh PO DAILY 180 ea 3RF Coding Level of Care Code Est Pt Level 4 (74415) Complex EM visit Add On G2211 Diagnoses Asthma J45.909 History of mantle field radiation therapy Z92.3 Pleural thickening J92.9 History of Hodgkin's lymphoma Z85.71 Abnormal radiologic finding of lung field R91.8 Intercostal neuralgia G58.8
--- OUTSIDE RECORDS SUMMARY | 2024-10-03 12:30 | XMS_ITS | Encounter Summary ---
Author Organization [facility] Address [address] [place] [address] Care Team Providers Care Rotor Casting Machine Operator Name Role Phone Huong Johnson MD Primary Care Provider [phone] Encounter Details Date Type Department Care Team (Late st Contact Info) Description 03/22/2024 Lab Requisition [facility] [address] [facility] [place] [address] Darien Smith MD [address] [place] [address] [address] [place], [address] Anemia, unspecified Social History Tobacco Use [...] your loved ones. For example, early childhood education worker or elderly care for an older [...] [facility] Comment:Calculation based on the Chronic [...] [facility] [address] [place] [address], * (ABNORMAL) Complete blood count (03/23/2024 4:56 AM EST) [facility] WBC 8.2 4.8 - 10.8 K/mcL LAB [...] [facility] [address] [place] [address], documented in this encounter Visit Diagnoses Diagnosis Anemia, unspecified documented in this encounter Care Teams Rotor Casting Machine Operator Relationship Specialty Start Date End Date Huong Johnson MD [address] [place] [address] PCP - General Internal Medicine 03/03/24 documented as of this encounter
== END 2024-10-03 11:48 | disposition home or self-care (01) ==
PROVIDERS: PCP Internal Medicine; Visit Provider Nurse Practitioner Family
DX: J45.909 Unspecified asthma, uncomplicated (principal); Z92.3 Personal history of irradiation; J92.9 Pleural plaque without asbestos; Z85.71 Personal history of Hodgkin lymphoma; R91.8 Other nonspecific abnormal finding of lung field; G58.8 Other specified mononeuropathies
CPT/HCPCS: 99214

== ENCOUNTER → 2024-10-04 12:45 | Outpatient (REF) | payer BC, SELFPAY ==
[2024-07-21 08:49] VITALS: BP 100/50; BP 114/58; BP 156/54; BMI 40.1
--- NOTE | 2024-10-04 12:49 | CA_ITS ---
Transthoracic Echocardiogram Patient (Last, First, Middle): Rose Marie Ross M Gender: Female Date of : 1965 Age: 58 Procedure Date: 10/04/2024 Procedure Type: Transthoracic Echocardiogram Location: OP Height: 157.48 cm Weight: 107.96 kg BSA: 2.06 m2 Heart Rate: bpm BP: 128 / 62 mmHg Roofing Tile Sorter: TO Referring MD: Helen Olivas SKEIN SPOOLER-[employer] Conference Center Manager: Terrance Ordonez MD Symptoms: I35.0 - Nonrheumatic aortic (valve) stenosis Study Quality: Adequate w contrast ECG Rhythm: Sinus Conclusions: - 1. Normal LV ejection fraction of 60-65% with pseudonormal filling pattern 2. Mildly dilated left atrium 3. Moderate to severe calcific aortic stenosis 4. [id number] calcific mitral stenosis 5. No gross pericardial effusion Findings Procedure Information Contrast agent, definity, is being given per protocol without apparent complications. Left Ventricle Normal left ventricular size, thickness, and systolic function. The visually estimated ejection fraction is between 60-65%. Spectral Doppler is indicative of a pseudonormal filling pattern. Right Ventricle Normal right ventricular cavity size and systolic function. Atria The left atrium is mildly dilated. There is no evidence of interatrial shunt. The right atrium is normal in size. Aortic Valve There is moderate calcification of the aortic valve. There is moderate thickening of the aortic valve. There is moderate to severe aortic valve stenosis. The peak aortic gradient is 38 mmHg.The mean gradient is 25 mmHg. The aortic valve area is 1.07 cm2. There is mild aortic valve regurgitation. Mitral Valve There is moderate anterior and severe posterior mitral leaflet thickening. There is severe mitral annular calcification. There is no mitral valve regurgitation. There is mild to moderate mitral valve stenosis. Pulmonic Valve The pulmonic valve was not well visualized. Tricuspid Valve Likely normal tricuspid valve structure and function. Tricuspid regurgitation envelope is inadequate for calculation of right ventricular systolic pressure. Normal right atrial pressure. Great Vessels The pulmonary artery was not well visualized. There is no dilatation of the ascending aorta measuring 2.70 cm. Venous The inferior vena cava is normal in size and collapses greater than 50% with inspiration. Pericardium/Pleural There is no evidence of pericardial effusion. Measurements 2D Linear Measurements IVSd: 0.79 0.6-0.9/0.6-1.0 cm LVIDd: 4.72 3.9-5.3/4.2-5.9 cm LVIDd Index: 2.29 2.4-3.2/2.2-3.1 cm/m2 LVIDs: 3.48 2.0-3.6 cm LVPWd: 0.77 0.7-1.1 cm LV Mass: 147.97 67-162/88-224 g LV Mass Index: 71.83 43-95/49-115 g/m2 LVOT Diam: 2.00 3.0+(-)1.3 cm 2D Systolic Function EF 4C: 63.40 >55% EF 2C: 54.70 >55% EF BiP: 59.60 >55% Mitral Valve MV VTI: 0.50 MV Pk Godwin: 1.58 MV Mn Godwin: 1.07 MV Pk Grad: 10.00 MV Mn Grad: 5.00 MV Pk E: 1.33 MV PK A: 1.00 MV Decel Time: 247.00 E/A: 1.30 E'Lateral: 6.85 E'Medial: 3.26 E/E' Med: 40.80 E/E' Lat: 19.40 PHT: 72.00 MVA PHT: 3.06 MVA Continuity: 1.56 Decel Hooker: 5.39 Aortic Valve AoV Pk Godwin: 3.08 AoV Mn Godwin: 2.43 AoV VTI: 0.73 AoV Pk Grad: 38.00 Aov Mn Grad: 25.00 MAURO Cont.VTI: 1.07 AI Pk Godwin: 3.56 AI Hooker: 2.12 LVOT LVOT Pk Godwin: 1.09 LVOT Mn Godwin: 0.75 LVOT VTI: 0.25 LVOT Pk Grad: 5.00 LVOT Mn Grad: 3.00 LVOT Diam: 2.00 LVOT Area: 3.14 Diastolic Function MV Pk E: 1.33 MV Pk A: 1.00 E/A: 1.30 E'Medial: 3.26 E/E' Med: 40.80 E' Laterial: 6.85 E/E' Lat: 19.40 Right Ventricle TAPSE (mm): 26.00 TVS' Godwin: 10.00 Tricuspid Valve RA Press: 3.00 Great Vessels Aorta Sinus of Valsalva: 2.64 2.0-3.5 cm Ao Asc: 2.70 2.1-3.4 cm Updated in Other Vendor System with Status of Final Terrance Ordonez MD electronically signed on 10/05/2024 4:30:48 PM with status of Final
--- OUTSIDE RECORDS SUMMARY | 2024-10-04 13:28 | XMS_ITS | Encounter Summary ---
Author Organization [facility] Address [address] [place] [address] Care Team Providers Care Hospitalist Medical Director Name Role Phone Huong Johnson MD Primary Care Provider [phone] Encounter Details Date Type Department Care Team (Late st Contact Info) Description 03/22/2024 Lab Requisition [facility] - Main Lab [address] [facility] [place] [address] Darien Smith MD [address] [place] [address] [address] [place], [address] Anemia, unspecified Social History Tobacco Use [...] care for your loved ones. For example, rn child or elderly care for an older adult? [...] mmol/L LAB CHEMISTRY METHOD 03/23/2024 10:11 AM [facility] Potassium 4.7 3.5 - 5.5 mmol/L LAB CHEMISTRY METHOD 03/23/2024 10:11 AM [facility] Chloride 109 96 - 110 mmol/L LAB CHEMISTRY METHOD 03/23/2024 10:11 AM [facility] CO2 28 21 - 32 mmol/L LAB CHEMISTRY METHOD 03/23/2024 10:11 AM [facility] Anion Gap 4 3 - 11 LAB CHEMISTRY METHOD 03/23/2024 10:11 AM [facility] Glucose 86 70 - 100 mg/dL LAB CHEMISTRY METHOD 03/23/2024 10:11 AM [facility] BUN 6 5 - 25 mg/dL LAB CHEMISTRY METHOD 03/23/2024 10:11 AM [facility] Creatinine 0.66 0.50 - 1.10 mg/dL LAB CHEMISTRY METHOD 03/23/2024 10:11 AM [facility] eGFR 103 >=60 mL/min/1. 73m2 LAB CHEMISTRY METHOD 03/23/2024 10:11 AM [facility] Comment:Calculation based on the Chronic Kidney Disease Epidemiology Collaboration (CKD-EPI) equation refit without adjustment for race. BUN/Creatinine Ratio 9.1 LAB CHEMISTRY METHOD 03/23/2024 10:11 AM [facility] Calcium 8.7 8.5 - 10.5 mg/dL LAB CHEMISTRY METHOD 03/23/2024 10:11 AM [facility] Blood Venous blood specimen / Unknown Venipuncture / Unknown 03/23/2024 4:56 AM EST 03/23/2024 8:44 AM EST us Darien Smith MD LAB BLOOD ORDERABLES Final Resul t [facility] [address] [place] [address], * (ABNORMAL) Complete blood count (03/23/2024 4:56 AM EST) [facility] WBC 8.2 4.8 - 10.8 K/mcL LAB HEMETOLOGY METHOD 03/23/2024 9:56 AM [facility] RBC 3.50(L) 3.80 - 4.80 M/mcL LAB HEMETOLOGY METHOD 03/23/2024 9:56 AM [facility] Hemoglobin 10.0(L) 11.5 - 16.0 g/dL LAB HEMETOLOGY METHOD 03/23/2024 9:56 AM [facility] Hematocrit 32.2(L) 35.0 - 47.0 % LAB HEMETOLOGY METHOD 03/23/2024 9:56 AM [facility] MCV 91.0 79.0 - 98.0 FL LAB HEMETOLOGY METHOD 03/23/2024 9:56 AM [facility] MCH 28.2 27.0 - 32.0 pcg LAB HEMETOLOGY METHOD 03/23/2024 9:56 AM [facility] MCHC 31.1(L) 32.0 - 37.0 g/dL LAB HEMETOLOGY METHOD 03/23/2024 9:56 AM [facility] RDW 15.5(H) 11.0 - 15.0 % LAB HEMETOLOGY METHOD 03/23/2024 9:56 AM [facility] Platelets 480(H) 130 - 400 K/mcL LAB HEMETOLOGY METHOD 03/23/2024 9:56 AM [facility] MPV 11.4(H) 7.0 - 11.0 FL LAB HEMETOLOGY METHOD 03/23/2024 9:56 AM [facility] NRBC 0.0 <1.0 % LAB [...] t [facility] [address] [place] [address], documented in this encounter Visit Diagnoses Diagnosis Anemia, unspecified documented in this encounter Care Teams Hospitalist Medical Director Relationship Specialty Start Date End Date Huong Johnson MD [address] [place] [address] PCP - General Internal Medicine 03/03/24 documented as of this encounter
== END ==
LOC: HO.CARD 12:45
PROVIDERS: Visit Provider Nurse Practitioner Family
DX: I35.0 Nonrheumatic aortic (valve) stenosis (principal); I34.2 Nonrheumatic mitral (valve) stenosis; Z95.5 Presence of coronary angioplasty implant and graft
CPT/HCPCS: 93306; Q9957

== ENCOUNTER → 2024-10-04 12:49 | Outpatient (BNV) | payer BC, SELFPAY ==
[2024-07-21 08:49] VITALS: BP 100/50; BP 114/58; BP 156/54; BMI 40.1
== END ==
PROVIDERS: Visit Provider Internal Medicine Cardiovascular Disease
DX: I35.0 Nonrheumatic aortic (valve) stenosis (principal); I34.2 Nonrheumatic mitral (valve) stenosis
CPT/HCPCS: 93306

== ENCOUNTER 2024-10-11 08:57 | Outpatient (REF) | payer BC, SELFPAY ==
[2024-07-21 08:49] VITALS: BP 100/50; BP 114/58; BP 156/54; BMI 40.1
--- NOTE | ~2024-10-11 | MM_ITS ---
EXAMINATION: MM SCREENING DIGITAL BREAST TOMOSYNTHESIS, BILATERAL CLINICAL INFORMATION: Screening. Asymptomatic. COMPARISON: Mammography: Comparison is made with available priors TECHNIQUE: Digital breast mammography with tomosynthesis is performed in both the craniocaudal and mediolateral oblique views along with computer-aided detection (CAD). FINDINGS: There are scattered areas of fibroglandular density (ACR BI-RADS breast composition Category b). Left: Asymmetry upper outer breast posterior depth with associated architectural distortion. No suspicious calcifications or other abnormal findings. Right: There are no significant masses, abnormal calcifications, or other abnormalities. MM/MM tomosynthesis screening BI IMPRESSION: Additional imaging is recommended ASSESSMENT: BI-RADS BI-RADS 0 - Incomplete: Needs additional Imaging. RECOMMENDATION: 1. Additional views of the left breast. 2. Targeted ultrasound if warranted after review of the additional views. 3. Radiology department staff will contact the patient for additional imaging. Additional Imaging required This examination should not preclude the clinical evaluation of a suspicious palpable abnormality. This patient's information was entered into a reminder system with a target due date for their next mammogram. Electronically signed by: Michela Alegria DO 10/11/2024 10:21 AM EDT
--- OUTSIDE RECORDS SUMMARY | 2024-10-11 09:15 | XMS_ITS | Encounter Summary ---
Author Organization [facility] Address [address] [place] [address] Care Team Providers Care Community Arts Centre Manager Name Role Phone Huong Johnson MD Primary Care Provider [phone] Encounter Details Date Type Department Care Team (Late st Contact Info) Description 03/22/2024 Lab Requisition [facility] - Main Lab [address] [facility] [place] [address] Darien Smith MD [address] [place] [address] [address] [place], [address] Anemia, unspecified Social History Tobacco Use [...] care for your loved ones. For example, maternal child nurse or elderly care for an [...] mmol/L LAB CHEMISTRY METHOD 03/23/2024 10:11 AM [facility] Potassium 4.7 3.5 - 5.5 mmol/L LAB CHEMISTRY METHOD 03/23/2024 10:11 AM [facility] Chloride 109 96 - 110 mmol/L LAB CHEMISTRY METHOD 03/23/2024 10:11 AM [facility] CO2 28 21 - 32 mmol/L LAB CHEMISTRY METHOD 03/23/2024 10:11 AM [facility] Anion Gap 4 3 - 11 LAB CHEMISTRY METHOD 03/23/2024 10:11 AM [facility] Glucose 86 70 - 100 mg/dL LAB CHEMISTRY METHOD 03/23/2024 10:11 AM [facility] BUN 6 5 - 25 mg/dL LAB CHEMISTRY METHOD 03/23/2024 10:11 AM [facility] Creatinine 0.66 0.50 - 1.10 mg/dL LAB CHEMISTRY METHOD 03/23/2024 10:11 AM [facility] eGFR 103 >=60 mL/min/1. 73m2 LAB CHEMISTRY METHOD 03/23/2024 10:11 AM [facility] Comment:Calculation based on the Chronic Kidney Disease Epidemiology Collaboration (CKD-EPI) equation refit without adjustment for race. BUN/Creatinine Ratio 9.1 LAB CHEMISTRY METHOD 03/23/2024 10:11 AM [facility] Calcium 8.7 8.5 - 10.5 mg/dL LAB CHEMISTRY METHOD 03/23/2024 10:11 AM [facility] Blood Venous blood specimen / Unknown Venipuncture / Unknown 03/23/2024 4:56 AM EST 03/23/2024 8:44 AM EST us Darien Smith MD LAB BLOOD ORDERABLES Final Resul t [facility] [address] [place] [address], * (ABNORMAL) Complete blood count (03/23/2024 4:56 AM EST) [facility] WBC 8.2 4.8 - 10.8 K/mcL LAB HEMETOLOGY METHOD 03/23/2024 9:56 AM [facility] RBC 3.50(L) 3.80 - 4.80 M/mcL LAB HEMETOLOGY METHOD 03/23/2024 9:56 AM [facility] Hemoglobin 10.0(L) 11.5 - 16.0 g/dL LAB HEMETOLOGY METHOD 03/23/2024 9:56 AM [facility] Hematocrit 32.2(L) 35.0 - 47.0 % LAB HEMETOLOGY METHOD 03/23/2024 9:56 AM [facility] MCV 91.0 79.0 - 98.0 FL LAB HEMETOLOGY METHOD 03/23/2024 9:56 AM [facility] MCH 28.2 27.0 - 32.0 pcg LAB HEMETOLOGY METHOD 03/23/2024 9:56 AM [facility] MCHC 31.1(L) 32.0 - 37.0 g/dL LAB HEMETOLOGY METHOD 03/23/2024 9:56 AM [facility] RDW 15.5(H) 11.0 - 15.0 % LAB HEMETOLOGY METHOD 03/23/2024 9:56 AM [facility] Platelets 480(H) 130 - 400 K/mcL LAB HEMETOLOGY METHOD 03/23/2024 9:56 AM [facility] MPV 11.4(H) 7.0 - 11.0 FL LAB HEMETOLOGY METHOD 03/23/2024 9:56 AM [facility] NRBC 0.0 <1.0 % LAB HEMETOLOGY METHOD 03/23/2024 9:56 AM EST [facility] NRBC Absolute 0.00 <0.10 K/mcL LAB HEMETOLOGY METHOD 03/23/2024 9:56 AM EST [facility] Blood Venous blood specimen / Unknown Venipuncture / Unknown 03/23/2024 4:56 AM EST 03/23/2024 8:44 AM EST us Darien Smith MD LAB BLOOD ORDERABLES Final Resul t [facility] [address] [place] [address], documented in this encounter Visit Diagnoses Diagnosis Anemia, unspecified documented in this encounter Care Teams Community Arts Centre Manager Relationship Specialty Start Date End Date Huong Johnson MD [address] [place] [address] PCP - General Internal Medicine 03/03/24 documented as of this encounter
== END 2024-10-11 08:58 | disposition home or self-care (01) ==
LOC: HO.MAMMO 08:57
PROVIDERS: PCP Internal Medicine; Visit Provider Internal Medicine
DX: Z12.31 Encounter for screening mammogram for malignant neoplasm of breast (principal)
CPT/HCPCS: 77063; 77067

== ENCOUNTER → 2024-10-11 09:00 | Outpatient (BNV) | payer BC, SELFPAY ==
[2024-07-21 08:49] VITALS: BP 100/50; BP 114/58; BP 156/54; BMI 40.1
== END ==
PROVIDERS: PCP Internal Medicine; Visit Provider Internal Medicine
DX: Z12.31 Encounter for screening mammogram for malignant neoplasm of breast (principal)
CPT/HCPCS: 77063; 77067

== ENCOUNTER 2024-10-12 07:25 | Outpatient (REF) | payer BC, SELFPAY ==
[2024-07-21 08:49] VITALS: BP 100/50; BP 114/58; BP 156/54; BMI 40.1
--- NOTE | ~2024-10-12 | MM_ITS ---
PROCEDURE: ULTRASOUND-GUIDED LEFT BREAST BIOPSY CLINICAL INFORMATION: Two solid irregular masses in the left breast 2:00 12 cm from the nipple. COMPARISON: [facility] on PACS. TECHNIQUE: The details of the procedure, as well as the risks, benefits, and alternatives to the procedure were explained to the patient in detail and all of her questions were answered, after which, written informed consent was obtained. PROCEDURE: Prior to the procedure, sonography revealed two adjacent solid irregular masses in the left breast at 2:00 12 cm from the nipple. A time-out was performed, the lesion intended for biopsy was targeted and the skin of the left breast was then prepped and draped in the usual sterile fashion. Site A: Using sonographic guidance, sterile technique, and 1% lidocaine without epinephrine for local anesthesia, a total of 3 cores were obtained through the targeted area with a 14-gauge biopsy device. At the completion of tissue sampling, a single butterfly metallic clip was deposited at the biopsy site. An appropriate sample was obtained. Site B: Using sonographic guidance, sterile technique, and 1% lidocaine without epinephrine for local anesthesia, a total of 4 cores were obtained through the targeted area with a 14-gauge biopsy device. At the completion of tissue sampling, a single barrel metallic clip was deposited at the biopsy site. An appropriate sample was obtained. The postprocedure 2-view direct digital mammogram reveals satisfactory positioning of the biopsy clips. The patient tolerated the procedure well and, after assuring adequate hemostasis, was discharged in good condition after reviewing postbiopsy breast care instructions. Final pathology results are pending. MM/MM tomosynthesis diagnostic LT IMPRESSION: 1. Uncomplicated sonographically-guided core biopsy of the left breast 2 masses at 2:00. The 2-view direct digital postprocedure mammogram reveals satisfactory positioning of the biopsy clips. 2. Final pathology results are pending. A separate report with final recommendations will be issued once these results are made available. Electronically signed by: Michela Alegria DO 10/12/2024 11:25 AM EDT
--- NOTE | ~2024-10-12 | MM_ITS ---
EXAMINATION: MM DIAGNOSTIC DIGITAL BREAST TOMOSYNTHESIS, LEFT Limited left breast ultrasound. CLINICAL INFORMATION: Call back from screening for focal asymmetry in the upper outer left breast. COMPARISON: Mammography: [facility] on PACS. TECHNIQUE: Digital breast tomosynthesis is performed in both the craniocaudal and mediolateral oblique views along with computer-aided detection (CAD). Synthesized 2D images are generated from the tomosynthesis. FINDINGS: There are scattered areas of fibroglandular density (ACR BI-RADS breast composition Category b). Developing focal asymmetry in the upper outer quadrant persists with associated architectural distortion. No suspicious calcifications or other abnormal findings. Targeted color Doppler ultrasound demonstrates two adjacent irregular hypoechoic solid masses at 2:00 12 cm from the nipple measuring 10 x 7 x 8 mm and 8 x 6 x 9 mm. MM/MM tomosynthesis added views L IMPRESSION: Two adjacent solid irregular masses in the upper outer left breast at 2:00 on ultrasound. Recommend histology with ultrasound-guided core needle biopsy at this time. The findings and recommendations were discussed with the patient the procedure will be scheduled. ASSESSMENT: BI-RADS BI-RADS 4 - Suspicious finding RECOMMENDATION: Biopsy recommended Results were discussed with the patient at time of visit. Electronically signed by: Michela Alegria DO 10/12/2024 09:28 AM EDT
--- OUTSIDE RECORDS SUMMARY | 2024-10-12 07:27 | XMS_ITS | Encounter Summary ---
Author Organization [facility] Address [address] [place] [address] Care Team Providers Care Frozen Pie Maker Name Role Phone Huong Johnson MD Primary Care Provider [phone] Encounter Details Date Type Department Care Team (Late st Contact Info) Description 03/22/2024 Lab Requisition [facility] - Main Lab [address] [facility] [place] [address] Darien Smith MD [address] [place] [address] [address] [place], [address] Anemia, unspecified Social History Tobacco Use [...] mmol/L LAB CHEMISTRY METHOD 03/23/2024 10:11 AM [facility] Potassium 4.7 3.5 - 5.5 mmol/L LAB CHEMISTRY METHOD 03/23/2024 10:11 AM [facility] Chloride 109 96 - 110 mmol/L LAB CHEMISTRY METHOD 03/23/2024 10:11 AM [facility] CO2 28 21 - 32 mmol/L LAB CHEMISTRY METHOD 03/23/2024 10:11 AM [facility] Anion Gap 4 3 - 11 LAB CHEMISTRY METHOD 03/23/2024 10:11 AM [facility] Glucose 86 70 - 100 mg/dL LAB CHEMISTRY METHOD 03/23/2024 10:11 AM [facility] BUN 6 5 - 25 mg/dL LAB CHEMISTRY METHOD 03/23/2024 10:11 AM [facility] Creatinine 0.66 0.50 - 1.10 mg/dL LAB CHEMISTRY METHOD 03/23/2024 10:11 AM [facility] eGFR 103 >=60 mL/min/1. 73m2 LAB CHEMISTRY METHOD 03/23/2024 10:11 AM [facility] Comment:Calculation based on the Chronic Kidney Disease Epidemiology Collaboration (CKD-EPI) equation refit without adjustment for race. BUN/Creatinine Ratio 9.1 LAB CHEMISTRY METHOD 03/23/2024 10:11 AM [facility] Calcium 8.7 8.5 - 10.5 mg/dL LAB CHEMISTRY METHOD 03/23/2024 10:11 AM [facility] Blood Venous blood specimen / Unknown Venipuncture / Unknown 03/23/2024 4:56 AM EST 03/23/2024 8:44 AM EST us Darien Smith MD LAB BLOOD ORDERABLES Final Resul t [facility] [address] [place] [address], * (ABNORMAL) Complete blood count (03/23/2024 4:56 AM EST) [facility] WBC 8.2 4.8 - 10.8 K/mcL LAB HEMETOLOGY METHOD 03/23/2024 9:56 AM [facility] RBC 3.50(L) 3.80 - 4.80 M/mcL LAB HEMETOLOGY METHOD 03/23/2024 9:56 AM [facility] Hemoglobin 10.0(L) 11.5 - 16.0 g/dL LAB HEMETOLOGY METHOD 03/23/2024 9:56 AM [facility] Hematocrit 32.2(L) 35.0 - 47.0 % LAB HEMETOLOGY METHOD 03/23/2024 9:56 AM [facility] MCV 91.0 79.0 - 98.0 FL LAB HEMETOLOGY METHOD 03/23/2024 9:56 AM [facility] MCH 28.2 27.0 - 32.0 pcg LAB HEMETOLOGY METHOD 03/23/2024 9:56 AM [facility] MCHC 31.1(L) 32.0 - 37.0 g/dL LAB HEMETOLOGY METHOD 03/23/2024 9:56 AM [facility] RDW 15.5(H) 11.0 - 15.0 % LAB HEMETOLOGY METHOD 03/23/2024 9:56 AM [facility] Platelets 480(H) 130 - 400 K/mcL LAB HEMETOLOGY METHOD 03/23/2024 9:56 AM [facility] MPV 11.4(H) 7.0 - 11.0 FL LAB HEMETOLOGY METHOD 03/23/2024 9:56 AM [facility] NRBC 0.0 <1.0 % LAB HEMETOLOGY METHOD 03/23/2024 9:[address] [facility] NRBC Absolute 0.00 <0.10 K/mcL LAB HEMETOLOGY METHOD 03/23/2024 9:[address] [facility] Blood Venous blood specimen / Unknown Venipuncture / Unknown 03/23/2024 4:56 AM EST 03/23/2024 8:44 AM EST us Darien Smith MD LAB BLOOD ORDERABLES Final Resul t [facility] [address] [place] [address], documented in this encounter Visit Diagnoses Diagnosis Anemia, unspecified documented in this encounter Care Teams Frozen Pie Maker Relationship Specialty Start Date End Date Huong Johnson MD [address] [place] [address] PCP - General Internal Medicine 03/03/24 documented as of this encounter
[2024-10-12] MEDS: Lidocaine HCl 1 % 20 ML VIAL 18 ML SUBCUT (10:42)
== END 2024-10-12 07:26 | disposition home or self-care (01) ==
LOC: HO.MAMMO 07:25
PROVIDERS: PCP Internal Medicine; Visit Provider Internal Medicine
DX: N64.9 Disorder of breast, unspecified (principal)
CPT/HCPCS: 19083; 19084; 76642; 77061; 77065; 88305; 88341; 88342; 88360; A4648; J2003

== ENCOUNTER → 2024-10-12 07:30 | Outpatient (BNV) | payer BC, SELFPAY ==
[2024-07-21 08:49] VITALS: BP 100/50; BP 114/58; BP 156/54; BMI 40.1
== END ==
PROVIDERS: PCP Internal Medicine; Visit Provider Internal Medicine
DX: R92.8 Other abnormal and inconclusive findings on diagnostic imaging of breast (principal); N63.21 Unspecified lump in the left breast, upper outer quadrant
CPT/HCPCS: 19083; 19084; 76642; 77061; 77065

== ENCOUNTER 2024-10-17 13:01 | Outpatient (AMB) | payer BC, SELFPAY ==
[2024-07-21 08:49] VITALS: BP 100/50; BP 114/58; BP 156/54; BMI 40.1
--- OUTSIDE RECORDS SUMMARY | 2024-10-17 13:09 | XMS_ITS | Encounter Summary ---
Author Organization [facility] Address [address] [place] [address] Care Team Providers Care Cylinder Loader Name Role Phone Huong Johnson MD Primary Care Provider [phone] Encounter Details Date Type Department Care Team (Late st Contact Info) Description 03/22/2024 Lab Requisition [facility] - Main Lab [address] [facility] [place] [address] Darien Smith MD [address] [place] [address] [address] [place], [address] Anemia, unspecified Social History Tobacco Use [...] your loved ones. For example, child care cook or elderly care for an older adult? [...] [facility] [address] [place] [address], * (ABNORMAL) Complete blood count (03/23/2024 4:56 AM EST) [facility] WBC 8.2 4.8 - 10.8 K/mcL [...] LAB HEMETOLOGY METHOD 03/23/2024 9:56 AM EST [facility] NRBC Absolute 0.00 <0.10 K/mcL LAB HEMETOLOGY METHOD 03/23/2024 9:56 AM EST [facility] Blood Venous blood specimen / Unknown Venipuncture / Unknown 03/23/2024 4:56 AM EST 03/23/2024 8:44 AM EST us Darien Smith MD LAB BLOOD ORDERABLES Final Resul t [facility] [address] [place] [address], documented in this encounter Visit Diagnoses Diagnosis Anemia, unspecified documented in this encounter Care Teams Cylinder Loader Relationship Specialty Start Date End Date Huong Johnson MD [address] [place] [address] PCP - General Internal Medicine 03/03/24 documented as of this encounter
--- NOTE | 2024-10-17 13:18 | MHC.OFFVIS ---
Vital Signs 10/17/24 13:22 Height 5 ft 2 in Weight 232 lb BMI 42.4 BP 128/60 Blood Pressure Location Lt brachial Position Sitting Pulse 79 Pulse Oximetry (%) 96 Oxygen Delivery Method Room Air Intake Visit Reasons: grade 3 invasive ductal carcin w/lobular features Intake Note: Patient referred after recent Lt br mass bx on 10-12-2024. Patient c/o: left breast pain and bruise. Family hx Measurement Analyst Required: No Accompanied by: Family/Other Allergies oxycodone (From PERCOCET) Allergy (Intermediate, Verified 10/03/24 11:19) HIVES Sulfa (Sulfonamide Antibiotics) (SULFA (SULFONAMIDE ANTIBIOTICS)) Allergy (Intermediate, Verified 10/03/24 11:19) HIVES sulfamethoxazole (From Bactrim) Allergy (Mild, Verified 10/03/24 11:19) Hives trimethoprim (From Bactrim) Allergy (Mild, Verified 10/03/24 11:19) Hives diatrizoate meglumine (Gastrografin) Allergy (Unknown, Verified 10/03/24 11:19) red rash Medication List - Last Reconciled 10/17/24 by Con Martins MD albuterol sulfate 90 mcg/actuation 2 puffs inhalation Q4-6H PRN aspirin (Ecotrin Low Strength) 81 mg PO DAILY atorvastatin 40 mg PO DAILY cane As directed cholecalciferol (vitamin D3) 50 mcg PO DAILY phzpqfasivl-tuoxgplup-cvobzemj 200-62.5-25 mcg (Trelegy Ellipta) 1 inh inhalation DAILY galcanezumab-gnlm (Emgality Pen) mg subcut ipratropium-albuterol 0.5 mg-3 mg(2.5 mg base)/3 mL 3 mL inhalation Q6-8H PRN levothyroxine (Levoxyl) 125 mcg PO DAILY lidocaine 5% 1 patch topical DAILY lorazepam 0.5 mg PO BID PRN meclizine 12.5 mg PO DAILY PRN mesalamine ER 1.5 grams (4 x 0.375 gram) PO DAILY Held on 08/18/24. Instructions: Doctor's Order morphine 15 mg PO BID PRN pantoprazole 40 mg PO DAILY pregabalin 100 mg PO QID sertraline 150 mg PO DAILY ursodiol 500 mg PO BID jesus alberto (Ultra-Light Rollator misc) As directed HPI Comments Details: 58-year-old female patient presenting with her family for evaluation of a recent left breast ultrasound-guided core biopsy performed on 10/12/2024. 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 This was confirmed on ultrasound and felt to be suspicious for malignancy. The patient reports being able to feel a lump in the upper outer quadrant once it was identified by mammogram. Her family history is significant for colon cancer and prostate cancer but no breast cancer. She is 2 para 2. Subsequent pathology revealed invasive breast carcinoma with both ductal and lobular features, grade 3, ER/IL/HER2 Agatha negative, Ki-67 high proliferation rate. She has a previous history of lymphoma and underwent mantle radiation at [facility] many years ago. She has residual cardiac and pulmonary effects from the radiation therapy and recently underwent a PET scan in February 2024 which was negative for any suspicious changes in the breast. [facility] Medical History Triple negative breast cancer Primary invasive malignant neoplasm of left female breast History of mantle field radiation therapy (~1992) Environmental allergies History of shingles CAD (coronary artery disease) Stented coronary artery (~2022) Hyperlipidemia Obesity Mitral stenosis Anxiety and depression Tubular adenoma of colon History of Hodgkin's lymphoma (~1992) Radiation-induced heart disease Aortic stenosis Asthma Hypothyroid Hepatic steatosis GERD (gastroesophageal reflux disease) Herpes Surgical History History of lung surgery History of lymph node excision (03/12/23) History of lung biopsy (02/11/23) History of repair of hiatal hernia (~2017) History of thoracentesis (~2018) History of ankle surgery History of section History of colonoscopy History of heart artery stent (~2022) History of arthroscopy of right shoulder History of sleeve gastrectomy (~2017) History of esophagogastroduodenoscopy (EGD) History of cholecystectomy Family History Mother Colon cancer Father Hypertension Prostate cancer Son Diabetes Daughter Autism Social History Household Members: Spouse and Family Housing: House Are you a primary resident care provider to a significant other at home: No Do you presently have visiting nurse or other home services: No Alcohol intake: current Alcohol intake frequency: holidays/special occasions only Patient Tobacco Use Status: Never used Tobacco e-Cigarette/Vaping Use: Never Used Substance Use Type: Marijuana service: No 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: employed 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 Review of Systems Const All systems reviewed & are unremarkable except as noted in HPI and below Physical Exam Vital Signs: Last Vital Signs Pulse 79 10/17/24 13:22 BP 128/60 10/17/24 13:22 Pulse Ox 96 10/17/24 13:22 Oxygen Delivery Method Room Air 10/17/24 13:22 BMI result Body Mass Index 42.4 Const General: cooperative and no acute distress Nutritional Appearance: well nourished Orientation/consciousness: patient oriented x3 Limitations: no limitations HEENT Head: Yes normocephalic and Yes atraumatic Ears: hearing grossly normal bilaterally Chest Other: Left breast: Ecchymotic changes in the upper outer quadrant at the site of a previous needle biopsy. Palpable masses noted approximately 12 cm from the nipple at the 2 o'clock position corresponding to the mammogram and ultrasound findings. There is tenderness to palpation from the prior biopsy. No enlarged lymph nodes. No other skin changes or nipple discharge appreciated. No other palpable masses. Right breast: No skin change, nipple discharge, nipple retraction, palpable mass, or enlarged lymph nodes. Chest/axillae images:  1. Palpable mass upper outer quadrant Resp Effort & Inspection: normal respiratory effort, no audible wheezes, no cough and no respiratory distress Cardio Jugular venous distension: no JVD GI Inspection: Yes normal to inspection Skin Other: Warm, dry, no rash Neuro General: patient oriented x3 Extrem General: Yes no clubbing, cyanosis or edema Results Reviewed Results Reviewed: PATHOLOGY REPORT ADDENDUM REPORT Addendum Addendum #1 Synaptophysin immunostain is non-reactive in the tumor cells (A and B). No change is made to the diagnoses. Electronically Signed By: Blake Lucio MD 10/14/24 8246 Diagnosis A. Breast, left mass site A biopsy: Invasive carcinoma with ductal and lobular features, MSBR grade 3. B. Breast left mass site B biopsy: Invasive carcinoma with ductal and lobular features, MSBR grade 3. Comment: Prognostic studies (ER and IL) should be repeated on the resection specimen. The variable SATINDER immunoreactivity supports a breast primary; however, given it's triple negativity, correlation with clinical and imaging findings is recommended to rule out a metastasis. Estrogen receptor (A): Negative (0% of tumor cells; appropriate positive control) Progesterone receptor (A): Negative (0% of tumor cells; appropriate positive control) HER2 (A): Negative (0; no staining present; appropriate positive control) Proliferation index (A): High (60% of tumor cells with Ki-67 immunostain) Estrogen receptor (B): Negative (0% of tumor cells; appropriate internal positive control) Progesterone receptor (B): Negative (0% of tumor cells; appropriate internal positive control) HER2 (B): Negative (0; fewer than 10% of tumor cells, weak incomplete staining) Proliferation index (B): High (60% of tumor cells with Ki-67 immunostain) Breast Biopsy Data Synopsis Procedure: Core biopsy Specimen laterality: Left Histologic type: Mixed ductal and lobular Histologic grade ([place]/MSBR histologic score): 3 - Glandular/tubular differentiation: Score: 3 - Nuclear pleomorphism: Score: 3 - Mitotic rate: Score: 3 Tumor size: Largest linear diameter: 6 mm (A) and 7 mm (B) Ductal carcinoma in situ: Not identified Lymphovascular invasion: Not identified Microcalcifications: Not identified Note: Some of the listed elements may change with subsequent review of the entire lesion Assessment & Plan Assessment & Plan (1) Primary invasive malignant neoplasm of left female breast: Code(s): C50.912 - Malignant neoplasm of unspecified site of left female breast Category: Medical (2) Triple negative breast cancer: Code(s): C50.919 - Malignant neoplasm of unspecified site of unspecified female breast; Z17.421 - Hormone receptor negative with human epidermal growth factor receptor 2 negative status Category: Medical Plan 58-year-old female patient presenting with a newly diagnosed invasive breast carcinoma with ductal and lobular features, triple negative, high Ki-67. Two areas in the upper outer quadrant were biopsied in both areas have similar lesions. On examination the patient does indeed have a palpable mass in this location corresponding to the mammogram findings. We discussed management options regarding this aggressive tumor which was not present on prior CT of the chest or PET scan from February last year. I recommended obtaining oncology consultation for possible neoadjuvant chemotherapy for this triple negative tumor. She was previously treated at [facility] and wishes to continue her care with Dr. Latisha Chavarria. I also recommended obtaining a MR of the breast to better evaluate the extent of this tumor. We also discussed genetic testing along with the risks and benefits and she wishes to proceed with this testing. This was done today and the results should be available within the next week or 2. Further management will be based on the oncology evaluation. Orders: Orders MR breast BI wo/w con Today C50.912 - Malignant neoplasm of unspecified site of left female breast, C50.919 - Malignant neoplasm of unspecified site of unspecified female breast, Z17.421 - Hormone receptor negative with human epidermal growth factor receptor 2 negative status Referrals Hematology & Oncology Referral C50.912 - Malignant neoplasm of unspecified site of left female breast, C50.919 - Malignant neoplasm of unspecified site of unspecified female breast, Z17.421 - Hormone receptor negative with human epidermal growth factor receptor 2 negative status Coding Level of Care Code New Pt Level 4 (22316) Diagnoses Primary invasive malignant neoplasm of left female breast C50.912 Triple negative breast cancer C50.919; Z17.421
[2024-10-17 13:22] VITALS: BP 128/60; PULSE 79; O2SAT 96; BMI 42.4
== END 2024-10-17 15:04 | disposition home or self-care (01) ==
LOC: HO.HGS 13:02
PROVIDERS: PCP Internal Medicine; Visit Provider Surgery
DX: C50.912 Malignant neoplasm of unspecified site of left female breast (principal); C50.919 Malignant neoplasm of unspecified site of unspecified female breast; Z17.421 Hormone receptor negative with human epidermal growth factor receptor 2 negative status
CPT/HCPCS: 99204

== ENCOUNTER → 2024-10-19 13:24 | Outpatient (BNV) | payer BC, SELFPAY ==
[2024-07-21 08:49] VITALS: BP 100/50; BP 114/58; BP 156/54; BMI 40.1
== END ==
PROVIDERS: Visit Provider Internal Medicine
DX: C50.412 Malignant neoplasm of upper-outer quadrant of left female breast (principal)
CPT/HCPCS: 77049

== ENCOUNTER 2024-10-19 13:27 | Outpatient (REF) | payer BC, SELFPAY ==
[2024-07-21 08:49] VITALS: BP 100/50; BP 114/58; BP 156/54; BMI 40.1
--- OUTSIDE RECORDS SUMMARY | 2024-10-18 23:59 | XMS_ITS | Continuity of Care Document ---
Author Organization [facility] Address [address] [place] [address]- Care Team Providers Care Application Performance Engineer Name Role Phone Huong Johnson MD Primary Care Physician [phone] Encounter [facility] Date(s): 09/18/24 - 10/18/24 [facility] [address], [place] [address] Encounter Type: Triage Allergies, Adverse Reactions, [...] vaccine, inactivated 6 12/30/11 Gi dayana SARS-CoV-2(COVID-19)mRNA-LNP vac(rvd539) 12/26/23 Recorded tetanus/diphtheria/pertussis, acel(Tdap) 7 02/16/23 Given tetanus/diphtheria/pertussis, acel(Tdap) 03/01/12 Given [id number]-[id number] 12y+ bivalent booster vax 03/07/22 Recorded SARS-CoV-2 mRNA (gfawqzu-swrx-ivfaf) vax 09/08/21 Recorded SARS-CoV-2 (COVID-19) mRNA BNT-162b2 [...] [facility] 2Result Comment: [facility] [id number] 3Result Comment: [facility] [id number] 4Result Comment: [12/01/2016] [facility] 5Result Comment: [02/14/2013] [facility] 6Admin Note: work 7Result Comment: [id number] 8Result Comment: Covid 19 9Result Comment: Covid 19 10Result Comment: Done at [facility] 11Result Comment: [12/01/2016] [facility] Medications albuterol CFC free 90 mcg/inh inhalation aerosol 2, puffs, Inhalation, Every 6 hours, PRN, # 8.5 Gm, Refills 2, Tot. Refills 2, Maintenance, 05/17/2409:25:00 AM EDT, Inhaler, Route to Pharmacy Electronically, NCPDP_[id number], [facility] #[id number], 157.4, cm, 05/18/23 9:45:00 EDT, Height, 93.9, [...] Refills, Soft Stop, 08/28/24 8:41:00 AM EDT, [facility] #[id number], Partial fill upon patient request if the [...] 1 Refills, Maintenance, 09/18/24 2:43:00 PM EDT, [facility] #[id number], 157.4, cm, 06/15/24 15:14:00 EDT, Height, 105.6, [...] anxiety, # 60 tablet, 0 Refills, Maintenance, 10/10/24 12:29:00 PM EDT, Tablet, [facility] #[id number], Partial fill upon patient request if the prescription is for a schedule II opioid drug., 157.4, cm, 06/15/24 15:14:00 EDT, Height,105.6, kg, 06/14/24 13:00:00 EDT, Dry Weight Start Date: 10/10/24 Status: Ordered Quantity: 60.0 Unit: tablet Repeat [...] effusion, # 20 tablet, 0 Refills, Acute 11/10/24 12:23:00 PM EDT, 10/10/24 12:23:00 PM EDT, Tablet, [facility] #[id number], 157.4, cm, 06/15/24 15:14:00 EDT, Height, 105.6, kg, 06/14/24 13:00:00 EDT, Dry Weight Start Date: 10/10/24 Stop Date: 11/10/24 Status: Ordered Quantity: 20.0 Unit: tablet Repeat number: 1 pantoprazole 40 mg oral [...] 1 Refills, Maintenance, 09/22/24 12:34:00 PM EDT, [id number], 157.4, cm, 06/15/24 15:14:00 EDT, Height, 105.6, [...] Personnel Name: Alex MCCONNELL, Huong Esteves Position: [facility] Physician - Primary Care Member Role: PCP Address: [address] [place] [address] Adult & Pediatric [address] Telecom: Name: Deann Sethi RN Position: [facility] RN Member Role: Primary Care Nurse Name: Ernestine Norris RN Position: [facility] RN Member Role: Primary Care Nurse Name: Mariela Wild MD Position: [facility] Physician - Endocrinology Member Role: Lifetime Consulting Physician Care Team Related Persons Name: SIOMARA HAYDEN Insurance Providers Guarantor name: PILO HAYDEN Health Plan Information #: 1 Payer: [employer] [facility] Payer Identifier: NA Member Number: [id number] Group Number: [id number] Subscriber Identifier: [id number] Relationship to Subscriber: spouse Coverage Type: NA Coverage Verification Date: NA Telecom: Address: NA
--- NOTE | ~2024-10-19 | MR_ITS ---
EXAMINATION: MR BREAST WITHOUT AND WITH CONTRAST, BILATERAL CLINICAL INFORMATION: Recently diagnosed left breast invasive ductal carcinoma 10/12/2024 in 2 masses adjacent to each other ultrasound biopsies. MRI for complete evaluation. Patient had a history of chest radiation 30 years ago history of lymphoma. Family history of breast cancer including paternal grandmother half-sister. COMPARISON: Comparison is made with relevant prior imaging. TECHNIQUE: MR imaging of the breast was performed using T1, T2 and fat saturated techniques. Dynamic multiphase imaging was also performed after the administration of intravenous gadolinium contrast agent. Computer generated 3D reconstruction and enhancement kinetic analysis was ulitized by the radiologist in the interpretation of this examination. FINDINGS: Breast composition: Heterogeneous fibroglandular breast tissue Background parenchymal enhancement: Moderate LEFT BREAST: There are postbiopsy changes in the left upper outer breast far posterior depth from recent needle core biopsy in 2 areas at 2:00 12 cm from the nipple. The original biopsied masses are not well-defined on today's imaging due to postbiopsy changes the entire enhancing area and postbiopsy changes measures 43 mm anterior to posterior by 42 mm transverse by 25 superior to inferior, however measurements on the prior ultrasound are more accurate to determine size of the original biopsied masses. No other suspicious areas of nonmass enhancement or enhancing masses. No axillary or internal mammary adenopathy. RIGHT BREAST: No suspicious enhancing masses or areas of non mass enhancement. No axillary or internal mammary adenopathy. Other: Left apical enhancing pleural thickening and nodularity which extend partially into the anterior mediastinum are partially seen not well evaluated on breast MRI imaging, are somewhat similar in comparison to chest CT and better visualized on other cross-sectional imaging including chest CT. MR/MR breast BI wo/w con IMPRESSION: Left: Biopsy-proven malignancy in the upper outer left breast far posterior depth at 2 sites 2:00 12 cm from the nipple. Post biopsy changes obscure the original 2 masses biopsied and over evaluate the size, the ultrasound measurements are more accurate for evaluation of the size of the 2 biopsy-proven areas of malignancy. No other suspicious enhancing masses or areas of nonmass enhancement. The patient is under the care of a breast surgeon and oncology for excision and further management. Right: Negative. Other: Left apical pleural thickening and enhancement are not well-defined on breast MRI and if clinically concerned further evaluation could be considered with cross-sectional imaging. ASSESSMENT: LEFT BREAST: BI-RADS 6 biopsy-proven malignancy. The patient is under the care of a breast surgeon for excision and further management. RIGHT BREAST: BI-RADS 1-Negative RECOMMENDATIONS: Biopsy-proven left breast malignancy. The patient is under the care of a breast surgeon and oncology for excision and further management. Electronically signed by: Michela Alegria DO 10/20/2024 02:54 PM EDT
--- OUTSIDE RECORDS SUMMARY | 2024-10-19 13:57 | XMS_ITS | Encounter Summary ---
Author Organization [facility] Address [address] [place] [address] Care Team Providers Care Steel Loader Name Role Phone Huong Johnson MD Primary Care Provider [phone] Encounter Details Date Type Department Care Team (Late st Contact Info) Description 03/22/[address] [facility] - Main Lab [address] [place] [address] Darien Smith MD [address] [place] [address] [address] [place], [address] Anemia, unspecified Social History Tobacco Use [...] mmol/L LAB CHEMISTRY METHOD 03/23/2024 10:11 AM [facility] Potassium 4.7 3.5 - 5.5 mmol/L LAB CHEMISTRY METHOD 03/23/2024 10:11 AM [facility] Chloride 109 96 - 110 mmol/L LAB CHEMISTRY METHOD 03/23/2024 10:11 AM [facility] CO2 28 21 - 32 mmol/L LAB CHEMISTRY METHOD 03/23/2024 10:11 AM [facility] Anion Gap 4 3 - 11 LAB CHEMISTRY METHOD 03/23/2024 10:11 AM [facility] Glucose 86 70 - 100 mg/dL LAB CHEMISTRY METHOD 03/23/2024 10:11 AM [facility] BUN 6 5 - 25 mg/dL LAB CHEMISTRY METHOD 03/23/2024 10:11 AM [facility] Creatinine 0.66 0.50 - 1.10 mg/dL LAB CHEMISTRY METHOD 03/23/2024 10:11 AM [facility] eGFR 103 >=60 mL/min/1. 73m2 LAB CHEMISTRY METHOD 03/23/2024 10:11 AM [facility] Comment:Calculation based on the Chronic Kidney Disease Epidemiology Collaboration (CKD-EPI) equation refit without adjustment for race. BUN/Creatinine Ratio 9.1 LAB CHEMISTRY METHOD 03/23/2024 10:11 AM [facility] Calcium 8.7 8.5 - 10.5 mg/dL LAB CHEMISTRY METHOD 03/23/2024 10:11 AM [facility] Blood Venous blood specimen / Unknown Venipuncture / Unknown 03/23/2024 4:56 AM EST 03/23/2024 8:44 AM EST us Darien Smith MD LAB BLOOD ORDERABLES Final Resul t [facility] [address] [place] [address], * (ABNORMAL) Complete blood count (03/23/2024 4:56 AM EST) [facility] WBC 8.2 4.8 - 10.8 K/mcL LAB HEMETOLOGY METHOD 03/23/2024 9:56 AM [facility] RBC 3.50(L) 3.80 - 4.80 M/mcL LAB HEMETOLOGY METHOD 03/23/2024 9:56 AM [facility] Hemoglobin 10.0(L) 11.5 - 16.0 g/dL LAB HEMETOLOGY METHOD 03/23/2024 9:56 AM [facility] Hematocrit 32.2(L) 35.0 - 47.0 % LAB HEMETOLOGY METHOD 03/23/2024 9:56 AM [facility] MCV 91.0 79.0 - 98.0 FL LAB HEMETOLOGY METHOD 03/23/2024 9:56 AM [facility] MCH 28.2 27.0 - 32.0 pcg LAB HEMETOLOGY METHOD 03/23/2024 9:56 AM [facility] MCHC 31.1(L) 32.0 - 37.0 g/dL LAB HEMETOLOGY METHOD 03/23/2024 9:56 AM [facility] RDW 15.5(H) 11.0 - 15.0 % LAB HEMETOLOGY METHOD 03/23/2024 9:56 AM [facility] Platelets 480(H) 130 - 400 K/mcL LAB HEMETOLOGY METHOD 03/23/2024 9:56 AM [facility] MPV 11.4(H) 7.0 - 11.0 FL LAB HEMETOLOGY METHOD 03/23/2024 9:56 AM [facility] NRBC 0.0 <1.0 % LAB HEMETOLOGY METHOD 03/23/2024 9:56 AM EST [facility] NRBC Absolute 0.00 <0.10 K/mcL LAB HEMETOLOGY METHOD 03/23/2024 9:56 AM EST [facility] Blood Venous blood specimen / Unknown Venipuncture / Unknown 03/23/2024 4:56 AM EST 03/23/2024 8:44 AM EST us Darien Smith MD LAB BLOOD ORDERABLES Final Resul t [facility] [address] [place] [address], documented in this encounter Visit Diagnoses Diagnosis Anemia, unspecified documented in this encounter Care Teams Steel Loader Relationship Specialty Start Date End Date Huong Johnson MD [address] [place] [address] PCP - General Internal Medicine 03/03/24 documented as of this encounter
--- OUTSIDE RECORDS SUMMARY | 2024-10-19 13:57 | XMS_ITS | Clinical Summary ---
Author Organization [facility] Address [address] [address] [place] [address] Phone Care Team Providers Care Heat Sealing Machine Operator Name Role Phone Huong Johnson MD Primary Care Provider [phone] Self-Referred, Patient Unavailable Unavailab Narinder Hutchinson MD, PhD Unavailable + [phone] Lou Chilel MD Unavailable + [phone] Social History Tobacco Use Types Packs/Day Years Used Date Smoking Tobacco: Never Assessed Education Answer Date Recorded Are you interested in more education? Not on johnny e 10/18/2024 Are you concerned about learning? Not on file 10/18/2024 No 10/18/2024 No 10/18/2024 Digital Access Answer Date Recorded No 10/18/2024 No 10/18/2024 Reliable internet access at home? Not on file 10/18/2024 Device with a working camera? Not on file Comments Unknown Sex and Gender Information Value Date Recorded Sex Assigned at Female 10/18/2024 10:29 AM EDT Legal Sex Female 10:27 AM EDT Gender Identity Female 10/18/2024 10:29 AM EDT Sexual Orientation Straight 10/18/2024 10 :29 AM EDT Plan of Treatment Upcoming Encounters Date Type Department Care Team (Late st Contact Info) Description 11/02/2024 10:45 AM EDT Administrative Encounter Central Registration, [facility] [address] [facility] [place] [address] Lou Chilel MD [address] [place] [phone] [email or web address] includes the [email or web address] 11/02/2024 11:30 AM EDT Office Visit [facility], [facility], [address] [place] [address] Lou Chilel MD [address] [place] [phone] [email or web address] includes the [email or web address] 11/02/2024 1:00 PM EDT Office Visit [facility], [facility], [address] [place] [address] Narinder Qureshi MD, PhD [address] [place] [phone] [email or web address] Health Maintenance Due Date Last Done Comments Adult Td,Tdap Booster 1967 LIPID PANEL 1967 DEPRESSION SCREENING 1979 SMOKING Hx and SMOKELESS TOB ACCO SCREENING 12/29/1980 HEPATITIS C SCREENING 12/29/1985 HIV ONE-TIME SCREENING (18-6 5 YEARS) 12/29/1985 PAP SMEAR 12/29/1988 MAMMOGRAM 2007 COLOGUARD 12/29/2012 COLONOSCOPY 12/29/2012 COLORECTAL CANCER SCREENING 12/29/2012 FIT TEST 12/29/2012 FOBT 12/29/2012 SIGMOIDOSCOPY 12/29/2012 VIRTUAL COLONOSCOPY 12/29/2012 PNEUMOCOCCAL VACCINES (50+ y ears) (1 of 1 - PCV) 12/29/2017 ZOSTER VACCINES (1 of 2) 12/29/2017 COVID-19 VACCINE (1 - 2023-2 5 season) 2023 HEPATITIS A VACCINES Aged Out No long er eligible based on patient's age to complete this topic HIB VACCINES Aged Out No longer eligi ble based on patient's age to complete this topic MENINGOCOCCAL VACCINES (ACWY) Aged Out No longer eligible based on patient's age to complete this topic MENINGOCOCCAL VACCINES (B) Aged Out N o longer eligible based on patient's age to complete this topic Medical Devices Not on file Procedures Procedure Name Priority Date/Time Associated Diagnosis Comments OUTSIDE PATHOLOGY 10/12/2024 OUTSIDE IMAGING 10/12/2024 OUTSIDE IMAGING 10/12/2024 OUTSIDE IMAGING 10/12/2024 OUTSIDE IMAGING 10/11/2024 from Last 3 Months Results * Outside Imaging Report Only (10/12/2024) us Scanning Interface Provider IMG XR CHEST Diana l Result * Outside Imaging Report Only (10/12/2024) us Scanning Interface Provider IMG XR CHEST Diana l Result * Outside Imaging Report Only (10/12/2024) us Scanning Interface Provider IMG XR CHEST Diana l Result * Outside Pathology (10/12/2024) us Scanning Interface Provider PATHOLOGY ORDERABLES Final Result * Outside Imaging Report Only (10/11/2024) us Scanning Interface Provider IMG XR CHEST Diana l Result from Last 3 Months Insurance [facility] PPO EPO [facility] PPO EPO [facility] PPO EPO [facility] PPO EPO [facility] PPO EPO [facility] PPO EPO Care Teams Heat Sealing Machine Operator Relationship Specialty Start Date End Date Alex, Huong Eva, MD [address] [place] [address] PCP - General Internal Medicine 10/18/24 Self-Referred, Patient Referring Physician 10/18/24 Narinder Qureshi MD, PhD [address] [place] [phone] [email or web address] 10/18/24 Lou Chilel MD [address] [place] [phone] [email or web address] 10/18/24 Additional Source Comments The information contained in this document represents components of the legal health record. It is not the complete legal health record.[facility]
== END 2024-10-19 13:28 | disposition home or self-care (01) ==
LOC: HO.MRI 13:27
PROVIDERS: Visit Provider Surgery
DX: C50.912 Malignant neoplasm of unspecified site of left female breast (principal); Z17.421 Hormone receptor negative with human epidermal growth factor receptor 2 negative status
CPT/HCPCS: 77049; A9585

== ENCOUNTER 2024-10-21 13:07 | Outpatient (AMB) | payer BC, SELFPAY ==
--- OUTSIDE RECORDS SUMMARY | 2024-10-20 23:59 | XMS_ITS | Continuity of Care Document ---
Author Organization [facility] Address [address] [place] [address]- Care Team Providers Care Rehabilitation Services Counselor Name Role Phone Huong Johnson MD Primary Care Physician Encounter [facility] Date(s): 09/20/24 - 10/20/24 [facility] [address] [place], [place] [address] Encounter Type: Triage Allergies, Adverse [...] vaccine, inactivated 6 12/30/11 [facility] SARS-CoV-2(COVID-19)mRNA-LNP vac([id number]) 12/26/23 Recorded tetanus/diphtheria/pertussis, acel(Tdap) 7 02/16/23 Given tetanus/diphtheria/pertussis, acel(Tdap) 03/01/12 Given PVXO-RbH-3vCHY 12y+ bivalent booster vax 03/07/22 Recorded SARS-CoV-2 mRNA (jhouuvv-dose-yfmcu) vax 09/08/21 Recorded SARS-CoV-2 (COVID-19) mRNA BNT-162b2 [...] 11/03/16 Recorde d 1Result Comment: Done at [facility] 2Result Comment: [facility] [id number] 3Result Comment: [facility] [id number] 4Result Comment: [12/01/2016] [facility] 5Result Comment: [02/14/2013] [facility] 6Admin Note: work 7Result Comment: [id number] 8Result Comment: Covid 19 9Result Comment: Covid 19 10Result Comment: Done at [facility] 11Result Comment: [12/01/2016] [facility] Medications albuterol CFC free 90 mcg/inh inhalation aerosol 2, puffs, Inhalation, Every 6 hours, PRN, # 8.5 Gm, Refills 2, Tot. Refills 2, Maintenance, 05/17/2409:25:00 AM EDT, Inhaler, Route to Pharmacy Electronically, NCPDP_[id number], [facility] #[id number], 157.4, cm, 05/18/23 9:45:00 EDT, Height, 93.9, [...] Refills, Soft Stop, 08/28/24 8:41:00 AM EDT, [id number], Partial fill upon patient request if the [...] 1 Refills, Maintenance, 09/18/24 2:43:00 PM EDT, [facility] #[id number], 157.4, cm, 06/15/24 15:14:00 EDT, Height, 105.6, [...] Refills, Maintenance, 10/10/24 12:29:00 PM EDT, Tablet, [email or web address] #[id number], Partial fill upon patient request if the [...] PM EDT, 10/10/24 12:23:00 PM EDT, Tablet, [facility] #[id number], 157.4, cm, 06/15/24 15:14:00 EDT, Height, 105.6, [...] 1 Refills, Maintenance, 09/22/24 12:34:00 PM EDT[id number], 157.4, cm, 06/15/24 15:14:00 EDT, Height, 105.6, [...] Personnel Name: Alex MCCONNELL, Huong Esteves Position: [facility] Physician - Primary Care Member Role: PCP Address: [address] [place] [address] [facility] Pediatric [address] Telecom: Name: Deann Sethi RN Position: [facility] RN Member Role: Primary Care Nurse Name: Ernestine Norris RN Position: [facility] RN Member Role: Primary Care Nurse Name: Mariela Wild MD Position: [facility] Physician - Endocrinology Member Role: [employer] Physician Care Team Related Persons Name: SIOMARA HAYDEN Insurance Providers Guarantor name: PILO HAYDEN Health Plan Information #: 1 Payer: [email or web address] [facility] Payer Identifier: NA Member Number: [id number] Group Number: [id number] Subscriber Identifier: [id number] Relationship to Subscriber: spouse Coverage Type: NA Coverage Verification Date: NA Telecom: Address: NA
[2024-10-21 08:03] VITALS: BP 100/50; BP 114/58; BP 156/54; BMI 40.1
--- NOTE | 2024-10-21 13:07 | MHC.OFFVIS ---
Intake Visit Reasons: SCS Discussion Per Dr. Carrillo Allergies oxycodone (From PERCOCET) Allergy (Intermediate, Verified 10/03/24 11:19) HIVES Sulfa (Sulfonamide Antibiotics) (SULFA (SULFONAMIDE ANTIBIOTICS)) Allergy (Intermediate, Verified 10/03/24 11:19) HIVES sulfamethoxazole (From Bactrim) Allergy (Mild, Verified 10/03/24 11:19) Hives trimethoprim (From Bactrim) Allergy (Mild, Verified 10/03/24 11:19) Hives diatrizoate meglumine (Gastrografin) Allergy (Unknown, Verified 10/03/24 11:19) red rash HPI HPI SCS Discussion Per Dr. Carrillo: Details: History of Present Illness The patient is a 58-year-old female presenting with a recent diagnosis of breast cancer and management of Complex Regional Pain Syndrome (CRPS). The breast cancer diagnosis was unexpected, discovered during a routine mammogram. The patient has a history of cancer but not breast cancer. She is scheduled to meet with oncology on the to discuss further management, including potential chemotherapy due to the triple-negative nature of the lesion. The patient also suffers from Complex Regional Pain Syndrome (CRPS), which affects her left thigh. There is concern that any surgical intervention, particularly in areas affected by CRPS, could exacerbate her pain. Previous interventions include a spinal cord stimulator trial, which provided some relief. Pain Description - Pain is located in the left thigh. - Exacerbated by surgical interventions in areas affected by CRPS. - Previous spinal cord stimulator trial provided some relief. [facility] Medical History Triple negative breast cancer Primary invasive malignant neoplasm of left female breast History of mantle field radiation therapy (~1992) Environmental allergies History of shingles CAD (coronary artery disease) Stented coronary artery (~2022) Hyperlipidemia Obesity Mitral stenosis Anxiety and depression Tubular adenoma of colon History of Hodgkin's lymphoma (~1992) Radiation-induced heart disease Aortic stenosis Asthma Hypothyroid Hepatic steatosis GERD (gastroesophageal reflux disease) Herpes Surgical History History of lung surgery History of lymph node excision (03/12/23) History of lung biopsy (02/11/23) History of repair of hiatal hernia (~2017) History of thoracentesis (~2018) History of ankle surgery History of section History of colonoscopy History of heart artery stent (~2022) History of arthroscopy of right shoulder History of sleeve gastrectomy (~2017) History of esophagogastroduodenoscopy (EGD) History of cholecystectomy Family History Mother Colon cancer Father Hypertension Prostate cancer Son Diabetes Daughter Autism Social History Household Members: Spouse and Family Housing: House Are you a primary critical care paramedic to a significant other at home: No Do you presently have visiting nurse or other home services: No Alcohol intake: current Alcohol intake frequency: holidays/special occasions only Patient Tobacco Use Status: Never used Tobacco e-Cigarette/Vaping Use: Never Used Substance Use Type: Marijuana service: No 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: employed 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 Telehealth Telehealth Platform: [employer] Location of provider rendering services: practice address Location of patient: address on file Patient Identification confirmed using: Name, : Yes Telehealth method: video Patient verbally consented to treatment: Yes Patient verbally consented to billing insurance company: Yes Patient informed of any privacy concerns related to visit: Yes Minutes spent on Phone/Video with Pt.: 15 Assessment & Plan Assessment & Plan (1) CRPS (complex regional pain syndrome type I): Code(s): G90.50 - Complex regional pain syndrome I, unspecified Category: Medical Plan Plan - Await oncology consultation on the to determine the feasibility of proceeding with the spinal cord stimulator implantation in light of the recent breast cancer diagnosis. - Discuss with oncologist and breast surgeon regarding the timing of chemotherapy and its impact on surgical interventions. - Consider the risks of surgical intervention in areas affected by CRPS, including potential exacerbation of pain and risk of implant infection due to chemotherapy. Patient was informed and verbally consented to the use of an ambient scribe for clinic note documentation during this visit. Discussion Notes I discussed with the patient the recent diagnosis of breast cancer and the implications for her ongoing pain management plan. We talked about the potential impact of chemotherapy on surgical interventions, particularly concerning the spinal cord stimulator implantation. I advised her to consult with her oncologist and breast surgeon to assess the risks and benefits of proceeding with surgery during chemotherapy. Patient Instructions - Follow up with oncology on the to discuss treatment options. - Discuss with oncologist and breast surgeon about the timing of chemotherapy and surgical interventions. - Report any new or worsening symptoms to the healthcare provider immediately. Coding Level of Care Code Tele Est Pt Level 4 (15646) Diagnoses CRPS (complex regional pain syndrome type I) G90.50
--- OUTSIDE RECORDS SUMMARY | 2024-10-21 13:09 | XMS_ITS | Encounter Summary ---
Author Organization [facility] Address [address] [place] [address] Phone Care Team Providers Care Patient Escort Name Role Phone Huong Johnson MD Primary Care Provider [phone]- [phone] Self-Referred, Patient Unavailable Unavailab Narinder Hutchinson MD, PhD Unavailable + [phone] Lou Chilel MD Unavailable + [phone] Encounter Details Date Type Department Care Team (Late st Contact Info) Description 10/19/2024 Orders Only [facility], [facility] [address] [place] [address], [address] [place] [address] Nicki Hall, HARVINDER [address] [place] [email or web address] Malignant neoplasm of right female breast, unspecified estrogen receptor status, unspecified site of breast (Primary Dx) Social History Tobacco Use Types Packs/Day Years [...] Orientation Straight 10/18/2024 10 :29 AM EDT documented as of this encounter Plan of Treatment Upcoming Encounters Date Type Department Care Team (Late st Contact Info) Description 11/02/2024 10:45 AM EDT Administrative Encounter Central Registration, [address] [place] [address] Lou Chilel MD [address] [place] [phone] [email or web address] 11/02/2024 11:30 AM EDT Office Visit [facility], [address], [address] [place] [id number] Lou Chilel MD [address] [place] [phone] [email or web address] 11/02/2024 1:00 PM EDT Office Visit [facility], [facility], [address], [address] [place] [address] Narinder Qureshi MD, PhD [address] [place] [phone] [email or web address] Scheduled Orders Name Type Priority Associated Diagnoses Orde r Schedule Outside Pathology Review Pathology and Cytology Routine Malignant neoplasm of right female breast, unspecified estrogen receptor status, unspecified site of breast Expected: 10/19/2024, Expires: 10/19/2025 documented as of this encounter Visit Diagnoses Diagnosis Malignant neoplasm of right female breast, unspecified estrogen receptor status, unspecified site of breast- Primary documented in this encounter Care Teams Patient Escort Relationship Specialty Start Date End Date Huong Johnson MD [address] [place] [address] PCP - General Internal Medicine 10/18/24 Self-Referred, Patient Referring Physician 10/18/24 Narinder Qureshi MD, PhD [address] [place] [phone] [email or web address] 10/18/24 Lou Chilel MD [address] [place] [phone] [email or web address] Surgical Oncology 10/18/24 documented as of this encounter Additional Source Comments The information contained in this document represents components of the legal health record. It is not the complete legal health record.[facility]
== END 2024-10-21 13:08 | disposition home or self-care (01) ==
LOC: HO.PMC 13:07
PROVIDERS: Visit Provider Internal Medicine
DX: G90.50 Complex regional pain syndrome I, unspecified (principal)
CPT/HCPCS: 99214

== ENCOUNTER 2024-10-27 14:43 | Outpatient (AMB) | payer BC, SELFPAY ==
--- NOTE | 2024-10-27 14:48 | A.OFFVIS_ITS ---
Vital Signs 10/27/24 14:50 Height 5 ft 2 in Weight 235 lb 14.314 oz BMI 43.1 BP 130/82 Blood Pressure Location Lt brachial Position Sitting Pulse 86 Intake Visit Reasons: 6mth f/up, echo Intake Note: 6 month follow-up feeling good Photographic Process Attendant Required: No Allergies oxycodone (From PERCOCET) Allergy (Intermediate, Verified 10/03/24 11:19) HIVES Sulfa (Sulfonamide Antibiotics) (SULFA (SULFONAMIDE ANTIBIOTICS)) Allergy (Intermediate, Verified 10/03/24 11:19) HIVES sulfamethoxazole (From Bactrim) Allergy (Mild, Verified 10/03/24 11:19) Hives trimethoprim (From Bactrim) Allergy (Mild, Verified 10/03/24 11:19) Hives diatrizoate meglumine (Gastrografin) Allergy (Unknown, Verified 10/03/24 11:19) red rash Medication List - Last Reconciled 10/27/24 by Terrance Ordonez MD albuterol sulfate 90 mcg/actuation 2 puffs inhalation Q4-6H PRN aspirin (Ecotrin Low Strength) 81 mg PO DAILY atorvastatin 40 mg PO DAILY cane As directed cholecalciferol (vitamin D3) 50 mcg PO DAILY cugwcphbbpd-myzputbuw-jjvnpghz 200-62.5-25 mcg (Trelegy Ellipta) 1 inh inhalation DAILY galcanezumab-gnlm (Emgality Pen) mg subcut ipratropium-albuterol 0.5 mg-3 mg(2.5 mg base)/3 mL 3 mL inhalation Q6-8H PRN levothyroxine (Levoxyl) 125 mcg PO DAILY lidocaine 5% 1 patch topical DAILY lorazepam 0.5 mg PO BID PRN meclizine 12.5 mg PO DAILY PRN mesalamine ER 1.5 grams (4 x 0.375 gram) PO DAILY Held on 08/18/24. Instructions: Doctor's Order morphine 15 mg PO BID PRN pantoprazole 40 mg PO DAILY pregabalin 100 mg PO QID sertraline 150 mg PO DAILY ursodiol 500 mg PO BID jesus alberto (Ultra-Light Rollator misc) As directed HPI Comments Details: Rose Marie comes for follow-up from cardiac perspective. 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 She has intervally been diagnose with invasive breast cancer of the left breast and she seeking consultation at [facility] for surgical perspective. She is going to see her surgeon next week in [place]. She was not developed any significant cardiac issues. At nighttime she occasionally develops flutter. Her she does not have any exertional chest pain similar to her angina prior to her RCA stenting 2 years ago. She denies any heart failure symptoms. Denies any prolonged palpitation irregular heartbeat. No lightheadedness, syncope. Takes all her medications regularly. [facility] Medical History Triple negative breast cancer Primary invasive malignant neoplasm of left female breast History of mantle field radiation therapy (~1992) Environmental allergies History of shingles CAD (coronary artery disease) Stented coronary artery (~2022) Hyperlipidemia Obesity Mitral stenosis Anxiety and depression Tubular adenoma of colon History of Hodgkin's lymphoma (~1992) Radiation-induced heart disease Aortic stenosis Asthma Hypothyroid Hepatic steatosis GERD (gastroesophageal reflux disease) Herpes Surgical History History of lung surgery History of lymph node excision (03/12/23) History of lung biopsy (02/11/23) History of repair of hiatal hernia (~2017) History of thoracentesis (~2018) History of ankle surgery History of section History of colonoscopy History of heart artery stent (~2022) History of arthroscopy of right shoulder History of sleeve gastrectomy (~2017) History of esophagogastroduodenoscopy (EGD) History of cholecystectomy Family History Mother Colon cancer Father Hypertension Prostate cancer Son Diabetes Daughter Autism Social History Household Members: Spouse and Family Housing: House Are you a primary acute care surgeon to a significant other at home: No Do you presently have visiting nurse or other home services: No Alcohol intake: current Alcohol intake frequency: holidays/special occasions only Patient Tobacco Use Status: Never used Tobacco e-Cigarette/Vaping Use: Never Used Substance Use Type: Marijuana service: No 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: employed 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 Review of Systems Const Denies chills, Denies fatigue, Denies fever(s), Denies frequent falls, Denies weakness, Denies weight gain and Denies weight loss ENT Denies dizziness Card Denies chest pain, Denies leg edema, Denies lightheadedness, Denies palpitations, Denies dyspnea, Denies dyspnea on exertion, Denies orthopnea and Denies other (loss of consciousness) Resp Denies cough, Denies dyspnea and Denies dyspnea on exertion GI Denies hematochezia and Denies change in stool character Musc Denies abnormal gait, Denies muscle weakness, Denies numbness, Denies radiating pain into limb and Denies tingling Neuro Denies abnormal gait, Denies dizziness, Denies frequent falls, Denies numbness, Denies tingling and Denies weakness Endo Denies fatigue and Denies palpitations Physical Exam Vital Signs: Last Vital Signs Pulse 86 10/27/24 14:50 BP 130/82 10/27/24 14:50 BMI result Body Mass Index 43.1 Const General: cooperative, healthy appearing, comfortable and no acute distress Orientation/consciousness: patient oriented x3 Neck Neck: Yes normal visual inspection and Yes no JVD Resp Effort & Inspection: normal respiratory effort Auscultation: clear to auscultation bilaterally, no rales, no rhonchi and no wheezes Cardio Rate: regular rate Rhythm: regular rhythm Heart sounds: S2 normal heart sound present, Murmur heart sound present (systolic 3/6 left sternal border and 2/6 left apical region) systolic mid, decrescendo and crescendo and no rubs Neuro General: patient oriented x3 Extrem General: Yes normal to inspection, No no pedal edema and No calf tenderness Psych Appearance: grossly normal Mental Status: mental status grossly normal Speech and movement: Normal speech and movement present Office Procedures EKG Details: EKG shows normal sinus rhythm with voltage criteria for LVH otherwise no significant ST T wave changes 97240-[id number], Complete Assessment & Plan Assessment & Plan (1) Preop cardiovascular exam: Code(s): Z01.810 - Encounter for preprocedural cardiovascular examination Category: Medical Plan: Preoperative cardiovascular exam in this middle-aged woman with prior cardiac history including RCA stent 2 years ago with no symptoms of angina, moderately severe aortic stenosis calcific as well as qtms-xm-iugdzeda mitral stenosis calcific related to radiation heart disease. Patient has currently no symptoms related to valve disease. No signs or symptoms of heart failure. Given aortic stenosis, her risk for any form general anesthesia would be higher than somebody without aortic stenosis. She was planning to undergo this surgery at [facility] and although breast cancer surgery is low risk, her perioperative card iovascular risk for morbidity mortality is in the intermediate range. During the surgery at a tertiary care center will give more options for treatment if she has any cardiovascular decompensation. At current point time she was optimized to undergo the surgery and should be on all medications especially statins except for aspirin which can be withheld 5-7 days prior to the surgery at surgeon's discretion. Close attention to hemodynamic parameters at the time of surgery as well as attention to rapid fluid shifts. (2) Aortic stenosis: Comment: (05/19/22 Echo = pmqb-jn-cygchoht aortic & mitral valve stenosis) Code(s): I35.0 - Nonrheumatic aortic (valve) stenosis Category: Medical Qualifiers: Cardiac valve disease etiology: nonrheumatic Qualified Code(s): I35.0 - Nonrheumatic aortic (valve) stenosis Plan: Aortic stenosis which is moderately severe by last echocardiogram. She continues to have no symptoms related to the same at this point time. She also has jssa-vy-aunyqowr mitral stenosis. Both of these conditions are related to radiation heart disease. We discussed about management of these heart conditions. Will continue to monitor for symptoms as well as follow-up echocardiogram in a year's time to assess for progressive aortic stenosis. At that point in time will discuss about further treatment options. Given her prior radiation heart disease, open-heart surgery would be much higher risk and would consider transcatheter aortic valve replacement. Discussed with her about the differences in 2 approaches. She understands and agrees. Mitral stenosis is not a level that requires any intervention unless it becomes severe mitral stenosis at which point time can consider transcatheter mitral valve replacement. Continue aspirin therapy for life. Continue aggressive vascular risk factor modification. (3) CAD (coronary artery disease): Comment: (radiation induced heart disease - s/p stent to RCA 08/15/22) Code(s): I25.10 - Atherosclerotic heart disease of [place] coronary artery without angina pectoris Category: Medical Qualifiers: Coronary Disease-Associated Artery/Lesion type: [place] artery [place] vs. transplanted heart: [place] heart Associated angina: with unspecified form of angina Qualified Code(s): I25.119 - Atherosclerotic heart disease of [place] coronary artery with unspecified angina pectoris Plan: CAD with ostial RCA stenting again related to radiation heart disease. Patient currently on aspirin therapy and statin therapy. Target goal LDL less than 60 mg/dL. Continue to maintain activity level as tolerated. Continue in weight loss program. Will follow up in the clinic in 6 months time, sooner p.r.n.. Thank you for allowing me to partake in her care Coding Level of Care Code Est Pt Level 4 (25501) Complex EM visit Add On G2211 Diagnoses Preop cardiovascular exam Z01.810 Nonrheumatic aortic valve stenosis I35.0 Cardiac valve disease etiology: nonrheumatic Coronary artery disease involving [place] coronary artery of [place] heart with angina pectoris I25.119 Coronary Disease-Associated Artery/Lesion type: [place] artery [place] vs. transplanted heart: [place] heart Associated angina: with unspecified form of angina CPT Codes EKG - CPT: 46427-Bovawvoppakltdtwc, Complete ([id number])
--- OUTSIDE RECORDS SUMMARY | 2024-10-27 14:48 | XMS_ITS | Encounter Summary ---
Author Organization [facility] Address [address] [place] [address] Care Team Providers Care Hotel Clerk Name Role Phone Huong Johnson MD Primary Care Provider [phone] Encounter Details Date Type Department Care Team (Late st Contact Info) Description 03/22/2024 Lab Requisition [facility] - Main Lab [address] [facility] [place] [address] Darien Smith MD [address] [place] [address] [address], [phone] Anemia, unspecified Social History Tobacco Use [...] your loved ones. For example, child care associate or elderly care for an older adult? [...] Resul t [facility] [address] [place] [address], * (ABNORMAL) Complete blood count (03/23/2024 4:56 AM EST) [facility] WBC 8.2 4.8 - 10.8 [...] LAB HEMETOLOGY METHOD 03/23/2024 9:56 AM EST [facility] NRBC Absolute 0.00 <0.10 K/mcL LAB HEMETOLOGY METHOD 03/23/2024 9:56 AM EST [facility] Blood Venous blood specimen / Unknown Venipuncture / Unknown 03/23/2024 4:56 AM EST 03/23/2024 8:44 AM EST us Darien Smith MD LAB BLOOD ORDERABLES Final Resul t [facility] [address] [place] [address], documented in this encounter Visit Diagnoses Diagnosis Anemia, unspecified documented in this encounter Care Teams Hotel Clerk Relationship Specialty Start Date End Date Huong Johnson MD [address] [place] [address] PCP - General Internal Medicine 03/03/24 documented as of this encounter
--- OUTSIDE RECORDS SUMMARY | 2024-10-27 14:48 | XMS_ITS | Clinical Summary ---
Author Organization [facility] Address [address] [facility] [address] [place] [address] Phone Care Team Providers Care Document Improvement Specialist Name Role Phone Huong Johnson MD Primary Care Provider [phone] Self-Referred, Patient Unavailable Unavailab Narinder Hutchinson MD, PhD Unavailable + [phone] Lou Chilel MD Unavailable + [phone] Encounters Date Type Department Care Team Description 10/25/2024 1:59 PM EDT - 10/25/2024 11:59 PM EDT Hospital Encounter [facility], [facility] [address] [place] [address] Discharge Disposition: Home or Self Care 10/19/2024 Orders Only [facility], [facility], [facility] [place] [address] [facility]th [place] [address] Nicki Hall MA Malignant neoplasm of right female breast, unspecified estrogen receptor status, unspecified site of breast (Primary Dx) from Last 3 Months Social History Tobacco Use Types Packs/Day Years Used Date Smoking Tobacco: Never Assessed Child or Family Care Answer Date Record ed Do you have problems with on e of the following making it difficult for you to work, study, or receive health care? No 10/26/2024 Education Answer Date Recorded Are you interested in help w ith more adult education (for example, completing high school, GED, job training, learning the [place] language, technical skills, or developing parenting skills)? No 10/26/2024 Are you concerned about learning? Not on file 10/26/2024 No 10/26/2024 Yes 10/26/2024 Food Answer Date Recorded Within the past 6 months we worried whether our food would run out before we got money to buy more. Never True 10/26/2024 Within the past 6 months the food we bought just didn't last and we didn't have enough money to get more. Never True Residential Stability Answer Date Recor ded What is your housing situation today? I have stephanie sing 10/26/2024 How many times have you move d in the past 12 months? Zero (I did not move) 10/26/2024 Paying for Meds Answer Date Recorded Do you have trouble paying for medicines? No 10/26/2024 Paying Utility Bills Answer Date Record ed Do you have trouble paying your heating or elect ricity bill? No 10/26/2024 Transportation Answer Date Recorded Has the lack of transportati on kept you from medical appointments or from getting medications? No 10/26/2024 Digital Access Answer Date Recorded No 10/18/2024 [...] Team (Late st Contact Info) Description 11/02/2024 11:30 AM EDT Office Visit [facility], [facility] [address] [facility]th [place] [address] Lou Chilel MD [address] [place] [phone] [email or web address] 11/02/2024 1:00 PM EDT Office Visit [facility], [facility], [facility] [place] [address] [facility] [place] [address] Narinder Qureshi MD, PhD [address] [place] [address] [email or web address] Health Maintenance Due Date Last Done Comments Adult Td,Tdap Booster 1967 LIPID PANEL 1967 DEPRESSION SCREENING 1979 SMOKING Hx and SMOKELESS TOB ACCO SCREENING 12/29/1980 HEPATITIS C SCREENING 12/29/1985 HIV ONE-TIME SCREENING (18-6 5 YEARS) 12/29/1985 PNEUMOCOCCAL VACCINES (50+ y ears) (1 of 2 - PCV) 12/29/1986 ZOSTER VACCINES (1 of 2) 12/29/1986 PAP SMEAR 12/29/1988 MAMMOGRAM 2007 COLOGUARD 12/29/2012 COLONOSCOPY 12/29/2012 COLORECTAL CANCER SCREENING 12/29/2012 FIT TEST 12/29/2012 FOBT 12/29/2012 SIGMOIDOSCOPY 12/29/2012 VIRTUAL COLONOSCOPY 12/29/2012 COVID-19 VACCINE ( - 2023-2 5 season) 2023 HEPATITIS A [...] l Result from Last 3 Months Insurance [facility] PPO EPO [facility] PPO EPO [facility] PPO EPO [facility] PPO EPO [facility] PPO EPO [facility] PPO EPO Care Teams Document Improvement Specialist Relationship Specialty Start Date End Date Huong Johnson MD [facility] [address] PCP - General Internal Medicine 10/18/24 Self-Referred, Patient Referring Physician 10/18/24 Narinder Qureshi MD, PhD [address] [place] [phone] [email or web address] 10/18/24 Lou Chilel MD [address] [place] [address] [email or web address] Surgical Oncology 10/18/24 Additional Source Comments The information contained in this document represents components of the legal health record. It is not the complete legal health record.[facility]
[2024-10-27 14:50] VITALS: BP 130/82; PULSE 86; BMI 43.1
== END 2024-10-27 15:42 | disposition home or self-care (01) ==
LOC: HO.HCS 14:43
PROVIDERS: PCP Internal Medicine; Visit Provider Internal Medicine Cardiovascular Disease
DX: Z01.810 Encounter for preprocedural cardiovascular examination (principal); I35.0 Nonrheumatic aortic (valve) stenosis; I25.119 Atherosclerotic heart disease of native coronary artery with unspecified angina pectoris
CPT/HCPCS: 93010; 99214

== ENCOUNTER → 2024-10-27 14:43 | Outpatient (BNVA) | payer BC, SELFPAY ==
[2024-10-21 08:03] VITALS: BP 100/50; BP 114/58; BP 156/54; BMI 40.1
== END ==
PROVIDERS: PCP Internal Medicine; Visit Provider Internal Medicine Cardiovascular Disease
DX: I35.0 Nonrheumatic aortic (valve) stenosis (principal); I25.10 Atherosclerotic heart disease of native coronary artery without angina pectoris
CPT/HCPCS: 93005

== ENCOUNTER 2024-10-28 07:26 | Outpatient (REF) | payer BC, SELFPAY ==
--- OUTSIDE RECORDS SUMMARY | 2024-10-28 07:29 | XMS_ITS | Encounter Summary ---
Author Organization [facility] Address [address] [facility] [address] [place] [address] Phone Care Team Providers Care Spd Manager Name Role Phone Huong Johnson MD Primary Care Provider [phone]- [phone] Self-Referred, Patient Unavailable Unavailab Narinder Hutchinson MD, PhD Unavailable + [phone] Lou Chilel MD Unavailable + [phone] Encounter Details Date Type Department Care Team (Late st Contact Info) Description 10/27/2024 Ancillary Orders [facility] IMG OUTSIDE IMG [address] [place], [place] [id number] Lou Chilel MD [address] [place] [address] [email or web address] Social History Tobacco Use Types Packs/Day Years [...] high school, GED, job training, learning the [place] language, technical skills, or developing parenting skills)? [...] AM EDT Office [facility], [facility] [address] [place] [address], [address] [place] [address] Lou Chilel MD [address] [place] [phone] [email or web address] 11/02/2024 1:00 PM EDT Office Visit [facility], [facility] [address] [facility], [address]th [place] [address] Narinder Qureshi MD, PhD [address] [place] [phone] [email or web address] documented as of this encounter Results * Mammogram Outside (No Interpretation) (10/12/2024 12:00 AM EDT) Other Narrative ALANA - 10/27/2024 4:13 PM EDT This study is for PACS storage only and not for interpretation. us Lou Chilel MD IMG OUTSIDE IMAGING W/ OUT INTERPRETATION Final Result [email or web address] documented in this encounter Visit Diagnoses Not on filedocumented in this encounter Care Teams Spd Manager Relationship Specialty Start Date End Date Huong Johnson MD [address] [place] [address] PCP - General Internal Medicine 10/18/24 Self-Referred, Patient Referring Physician 10/18/24 Narinder Qureshi MD, PhD [address] [place] [phone] [email or web address] 10/18/24 Lou Chilel MD [address] [place] [address] [email or web address] 10/18/24 documented as of this encounter Additional Source Comments The information contained in this document represents components of the legal health record. It is not the complete legal health record.[facility]
--- OUTSIDE RECORDS SUMMARY | 2024-10-28 07:29 | XMS_ITS | Encounter Summary ---
Author Organization [facility] Address [address] [place] [address] Care Team Providers Care Shipping Coordinator Name Role Phone Huong Johnson MD Primary Care Provider [phone] Encounter Details Date Type Department Care Team (Late st Contact Info) Description 03/22/2024 Lab Requisition [facility] - Main Lab [address] [facility] [place] [address] Darien Smith MD [address] [place] [address] [address] [place], [phone] Anemia, unspecified Social History Tobacco Use [...] your loved ones. For example, child welfare director or elderly care for an older [...] [facility] Comment:Calculation based on the [...] t [facility] [address] [place] [address], * (ABNORMAL) Complete blood count (03/23/2024 4:56 AM EST) [facility] WBC 8.2 4.8 - 10.8 K/mcL [...] LAB HEMETOLOGY METHOD 03/23/2024 9:56 AM EST [facility] NRBC Absolute 0.00 <0.10 K/mcL LAB HEMETOLOGY METHOD 03/23/2024 9:56 AM EST [facility] Blood Venous blood specimen / Unknown Venipuncture / Unknown 03/23/2024 4:56 AM EST 03/23/2024 8:44 AM EST us Darien Smith MD LAB BLOOD ORDERABLES Final Resul t [facility] [address] [place] [address], documented in this encounter Visit Diagnoses Diagnosis Anemia, unspecified documented in this encounter Care Teams Shipping Coordinator Relationship Specialty Start Date End Date Huong Johnson MD [address] [place] [address] PCP - General Internal Medicine 03/03/24 documented as of this encounter
--- NOTE | 2024-10-28 07:38 | PFT_ITS ---
Indication asthma Spirometry FEV1 to FVC 85%; FEV1 2.09 L; FVC 2.46 L. No significant response to bronchodilators noted. Lung Volumes Total lung capacity 71% predicted; residual volume 67% predicted; expiratory reserve volume 45% predicted Diffusion Capacity DLCO 55% predicted although corrects to 77% when corrected for the alveolar volume. Comparisons None Interpretation No obstructive ventilatory defects appreciated. No significant response to bronchodilators noted. However, the patient has a restrictive ventilatory defect consistent with mild restrictive lung disease. In addition to that there is a moderate diffusion impairment. Need to consider underlying parenchymal lung conditions and or neuromuscular conditions. Should also correct for hemoglobin. Clinical correlation warranted. MTDD
[2024-10-28 08:58] VITALS: PULSE 65; O2SAT 98
== END 2024-10-28 07:27 | disposition home or self-care (01) ==
LOC: HO.RESP 07:26
PROVIDERS: PCP Internal Medicine; Visit Provider Nurse Practitioner Family
DX: J45.909 Unspecified asthma, uncomplicated (principal)
CPT/HCPCS: 94010; 94640; 94727; 94729

== ENCOUNTER → 2024-10-28 07:38 | Outpatient (BNV) | payer BC, SELFPAY ==
[2024-10-21 08:03] VITALS: BP 100/50; BP 114/58; BP 156/54; BMI 40.1
== END ==
PROVIDERS: PCP Internal Medicine; Visit Provider Hospitalist
DX: J45.909 Unspecified asthma, uncomplicated (principal)
CPT/HCPCS: 94060; 94727; 94729

== ENCOUNTER 2024-11-28 10:47 | Outpatient (AMB) | payer BC, SELFPAY ==
--- OUTSIDE RECORDS SUMMARY | 2024-11-25 12:30 | XMS_ITS | Encounter Summary ---
Author Organization [facility] Address [address] [facility] [address] [place] [phone] Phone Care Team Providers Care Java Software Engineer Name Role Phone Huong Johnson MD Primary Care Provider + [phone] Self-Referred, Patient Unavailable Unavailab Narinder Hutchinson MD, PhD Unavailable + [phone] Lou Chilel MD Unavailable + [phone] Terrance Ordonez MD Unavailable [phone] Nicki Desir NP Unavailable [phone] Alexia SouzaSW Unavailable [phone] Aditya Santos RN Unavailable [phone] Encounter Details Date Type Department Care Team (Late st Contact Info) Description 11/25/2024 12:30 PM EDT Infusion Infusion Therapy Services [facility], [facility] [address] [place] [address] Narinder Qureshi MD, PhD [address] [place] [phone] [email or web address] Aditya Santos, RN [address] [place] [phone] [email or web address] Arrived Social History Tobacco Use Types Packs/Day Years Used Date Smoking Tobacco: Never Smokeless Tobacco: Never Alcohol Use Standard Drinks/Week Comments Yes 0 (1 standard drink = 0.6 oz pur e alcohol) Casual-less than 10 a year Child or Family Care Answer Date Record ed Do you have problems with on e of the following making it difficult for you to work, study, or receive health care? No 10/26/2024 Education Answer Date Recorded Are you interested in help w ith more adult education (for example, completing high school, GED, job training, learning the [place] language, technical skills, or developing parenting skills)? [...] with a working camera? Not on file Intimate Partner Violence Answer Date R ecorded Are you denied basic needs s uch as food, clothing, or medical care? No 11/21/2024 In the past 12 months have y ou been in a relationship with a person who hurts, threatens, or tries to control you? No 11/21/2024 Are you denied basic needs s uch as food, clothing, or medical care? No 11/21/2024 In the past 12 months have y ou been in a relationship with a person who hurts, threatens, or tries to control you? No 11/21/2024 Comments Unknown Sex and Gender Information Value Date Recorded Sex Assigned at Female 10/18/2024 10:29 AM EDT Legal Sex Female 10:27 AM EDT Gender Identity Female 10/18/2024 10:29 AM EDT Sexual Orientation Straight 10/18/2024 10 :29 AM EDT documented as of this encounter Last Filed Vital Signs Vital Sign Reading Time Taken Comments Blood Pressure 170/72 11/25/2024 1:36 PM EDT Pulse 79 11/25/2024 1:36 PM EDT Temperature 36.9 C (98.4 F) 11/25/2024 1:36 PM EDT Respiratory Rate 20 11/25/2024 1:36 PM EDT Oxygen Saturation 98% 11/25/2024 1:36 PM EDT Inhaled Oxygen Concentration - - Weight - - Height - - Body Mass Index - - documented in this encounter Progress Notes * Aditya Santos RN - 11/25/2024 12:30 PM EDT Pt arrives to clinic today for ACC visit for supportive care. Pt c/o severe nausea, no vomitting and poor po intake. Pt seen and evaluated by ACC provider. Pt received zofran 8 mg IV and 20 mg of IV pepcid with one liter of NS. Because of poor po intake pt has not been taking her usual pain medication at home. Pt given 2 mg of IV morphine with good effect. After reevaluation pt received 0.5 mg poativan. Per provider pt also given 4 mg of IV dexamethasone and will take po 4 mg dex bid at home this weekend. Pt also received additional 500 ml of NS. Pt felt much better and was d/c home with in stable condition. Plan to return to clinic on and Namrata Ahuja will see pt prior to her taxol. documented in this encounter Plan of Treatment Upcoming Encounters Date Type Department Care Team (Late st Contact Info) Description 11/30/2024 2:10 PM EDT Blood Draw Laboratory Services, [address], [address] Floor [place], [place] Narinder Qureshi MD, PhD [address] [place] [phone] [email or web address] 11/30/2024 3:00 PM EDT Office Visit [facility], [facility], [address] [place] [address] Namrata Ahuja CNP [address] [place] [phone] [email or web address] 11/30/2024 3:30 PM EDT Infusion Infusion Therapy Services [address] [place] [address] Narinder Qureshi MD, PhD [address] [place] [phone] [email or web address] Aditya Santos RN [address] [place] [phone] [email or web address] 12/07/2024 3:30 PM EDT Infusion [facility] [address] [place] [address] Narinder Qureshi MD, PhD [address] [place] [phone] [email or web address] Jerrod Hazel RN [address] [place] [phone] [email or web address] 12/14/2024 8:50 AM EDT [facility], [address] [place], [place] Narinder Qureshi MD, PhD [address] [place] [phone] [email or web address] 12/14/2024 9:30 AM EDT Office Visit [facility], [facility], [address], [address] [place] [address] Namrata Ahuja, DOUG [address] [place] [phone] [email or web address] 12/14/2024 10:30 AM EDT Infusion [facility] [address], [address] [place] [address] Narinder Qureshi MD, PhD [address] [place] [phone] [email or web address] Courtney Little RN [address] [place] [phone] [email or web address] 12/21/2024 3:30 PM EDT Infusion [facility] [address] [place] [address] Narinder Qureshi MD, PhD [address] [place] [phone] [email or web address] Shanita Black, FAZAL [address] [place] [phone] [email or web address] 01/11/2025 8:30 AM EST [facility], [address], [address] [place] [address] Narinder Qureshi MD, PhD [address] [place] [phone] [email or web address] 01/11/2025 9:00 AM EST Office Visit [facility], [facility], [address], [address] [place] [phone] Narinder Qureshi MD, PhD [address] [place] [phone] [email or web address] 01/25/2025 10:50 AM EST [facility], [address], [address] [place] [address] Narinder Qureshi MD, PhD [address] [place] [phone] [email or web address] 01/25/2025 11:30 AM EST [facility], [facility], [address], [address] [place] [address] Namrata Ahuja, INFORMATION SYSTEMS CONSULTANT [address] [place] [phone] [email or web address] 02/08/2025 10:50 AM EST [facility], [address], [address] [place] [address] Narinder Qureshi MD, PhD [address] [place] [phone] [email or web address] 02/08/2025 11:30 AM EST Office Visit [facility], [facility], [facility] [address] [facility], [address]th [place] [address] Narinder Qureshi MD, PhD [address] [place] [address] [email or web address] documented as of this encounter Visit Diagnoses Not on filedocumented in this encounter Administered Medications Inactive Administered Medications - up to 3 most recent administrations Medication Order MAR Action Action Date Dose Rate Site dexAMETHasone (DECADRON) injection 4 mg 4 mg, Intravenous, Once, On Thu11/25/24 at 1730, For 1 dose Given 11/25/2024 4:34 PM EDT 4 mg famotidine (PF) (PEPCID) 20 mg/50 mL in NS IVPB premix 20 mg, Intravenous, Administer over 15 Minutes, at 200 mL/hr, Once, On Thu11/25/24 at 1515, For 1 dose, May be given undiluted IV push over 2 minutes. New Bag 11/25/2024 3:00 PM EDT 20 mg 200 mL/hr LORazepam (ATIVAN) tablet 0.5 mg 0.5 mg, Oral, Once, On Thu11/25/24 at 1645, For 1 dose Given 11/25/2024 3:59 PM EDT 0.5 mg morphine injection 2-4 mg 2-4 mg, Intravenous, Once, On Thu11/25/24 at 1615, For 1 dose Given 11/25/2024 3:32 PM EDT 2 mg ondansetron (ZOFRAN) 8 mg in NS IVPB premix CMPD 8 mg, Intravenous, Administer over 15 Minutes, at 256 mL/hr, Once, On Thu11/25/24 at 1515, For 1 dose New Bag 11/25/2024 2:38 PM EDT 8 mg 256 mL/hr sodium chloride 0.9% bolus 1,000 mL 1,000 mL, Intravenous, Administer over 60 Minutes, at 1,000 mL/hr, Once, On Thu11/25/24 at 1430, For 1 dose New Bag 11/25/2024 1:51 PM EDT 1,000 mL 1000 mL/hr sodium chloride 0.9% bolus 500 mL 500 mL, Intravenous, Administer over 1 Hours, at 500 mL/hr, Once, On Thu11/25/24 at 1615, For 1 dose New Bag 11/25/2024 3:14 PM EDT 500 mL 500 mL/hr documented in this encounter Care Teams Java Software Engineer Relationship Specialty Start Date End Date Huong Johnson MD [address] [place] [address] PCP - General Internal Medicine 10/18/24 Self-Referred, Patient Referring Physician 10/18/24 Narinder Qureshi MD, PhD [address] [place] [phone] [email or web address] Medical Oncology 10/18/24 Lou Chilel MD [address] [place] [phone] [email or web address] 10/18/24 Terrance Ordonez MD [address] [place] [address] Dr [place] [address] Cardiology 11/02/24 Nicki Desir, GIGI [address] [place] [address] [place] [address] Nurse Practitioner 11/02/24 Alexia Souza, [address] [phone] [email or web address] Software Systems Analyst Medical Oncology 11/02/24 Aditya Santos, FAZAL [address] [place] [phone] [email or web address] Primary Infusion Nurse 11/25/24 documented as of this encounter Additional Source Comments The information contained in this document represents components of the legal health record. It is not the complete legal health record.[facility]
--- OUTSIDE RECORDS SUMMARY | 2024-11-25 12:30 | XMS_ITS | Encounter Summary ---
Author Organization [facility]erg[facility] With [facility] Address [address] [facility] [address] [place] [address] Phone Care Team Providers Care Manufacturing Management Associate Name Role Phone Huong Johnson MD Primary Care Provider + [phone] Self-Referred, Patient Unavailable Unavailab Narinder Hutchinson MD, PhD Unavailable + [phone] Lou Chilel MD Unavailable + [phone] Terrance Ordonez MD Unavailable [phone] Nicki Desir NP Unavailable [phone] Alexia SouzaSW Unavailable [phone] Aditya Santos RN Unavailable [phone] Encounter Details Date Type Department Care Team (Late st Contact Info) Description 11/25/2024 12:30 PM EDT Office Visit Acute Care Clinic, [facility] [place] [address] [place] [address], 10th [place] [address] Laxmi Avalos PA-C [address] [place] [id number] [email or web address] 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, estrogen receptor negative (Primary Dx); Nausea and vomiting, unspecified vomiting type; Aortic valve stenosis, etiology of cardiac valve disease unspecified; Chronic pain syndrome Social History Tobacco Use Types Packs/Day Years [...] high school, GED, job training, learning the [place] language, technical skills, or developing parenting skills)? [...] AM EDT documented as of this encounter Progress Notes * Laxmi Avalos PA-C - 11/25/2024 12:30 PM EDT Images from the original note were not included. Acute Care Clinic [facility] Patient: Rose Marie Ross : 1965 PCP: Huong Johsnon MD Oncology Care Team: Dr. Narinder Qureshi/Namrata Ahuja NP Date of Evaluation: 11/25/24 Provider: Laxmi Avalos PA-C Chief Problem: nausea, decreased oral intake History of Present Illness: Rose Marie Ross is a 58-year-old woman with breast cancer status post cycle 1 day 1 neoadjuvant carbo/Taxol/pembrolizumab on 11/21/2024. She has a distant PMH of lymphoma s/p extensive chest radiation, RCA stent placement, severe aortic stenosis, multiple thoracic surgeries. Patient is referred to the Acute Care Clinic for evaluation of nausea and decreased oral intake. She is present with her . She reports feeling OK on days 2-3 after chemo then feeling terrible yesterday and today. She had severe nausea that was improving minimally with rotating zofran/compazine around the clock. She was only able to take small sips throughout the day yesterday, totally ~8 oz of fluids. No vomiting but unable to take anything in, including her oral medications. She denies any fever or chills. No diarrhea, + constipation, no BM in 3 days. Reports feeling absolutely miserable and felt like I was dying. Rose Marie spoke with Dr. Qureshi overnight, and was advised to beseen in ACC today. Medical History: Oncology History Overview Note EARLY STAGE BREAST CANCER 1992. Lymphoma, treated at [facility] with mantle-field irradiation and para- aortic radiation. She did not have splenectomy. No chemotherapy. Complicated by hypothyroidism, lung irritation, valvular heaert disease, coronary artery disease s/p stent 2022. 10/11/24. Screening mammogram --> asymmetry in L breast 10/12/24. Two areas of L breast near 2:00 biopsies. A. Carcinoma with ductal and lobular features, grade 3 of 3. ER 0%, PA 0%, HER2 0%, Ki67 60%. B. Carcinoma with ductal and lobular features, grade 3 of 3. ER 0%, PA 0%, HER2 0%, Ki67 60%. 11/02/24. Exam shows 3 cm x 2 cm mass in lateral aspect of L breast. 11/21/24. C1D1 neoadjuvant taxol/carbo/pembro. 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, estrogen receptor negative 11/02/2024 Initial Diagnosis 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, estrogen receptor negative 11/21/2024 - Systemic Therapy Adjuvant/Neoadjuvant; PEMBRO 400 Q6W DAY 1/CARBO 5 Q3W DAY 1,22 /PAC WEEKLY FOR 2 CYCLES FOLLOWED BY PEMBRO 400 Q6W DAYS 1,43/DDAC DAYS 1,15,29,43 (85 DAY CYCLE) Narinder Qureshi MD, PhD PMH PSH Past Medical History: Diagnosis Date Anemia 03/2023 Angina pectoris Arthritis Asthma Cancer Hodgkins Lyphoma Colon polyp Coronary artery disease 08/2022 Depressive disorder Long history Gastroesophageal reflux disease Herpes zoster Have had them many times Hx of breast cancer Hyperlipidemia 2022 On Atorvastatin Oral contraceptive use Ulcerative colitis 2020 Ileitis Past Surgical History: Procedure Laterality Date BREAST NEEDLE BIOPSY Left 10/2024 CHEST SURGERY RAC stent CHOLECYSTECTOMY 08/2000 LUNG SURGERY 03/2023 OTHER EXTREMITY SURGERY Right shoulder, right ankle STOMACH SURGERY 12/2017 Gastric sleeve Social History Family History Social History Tobacco Use Smoking status: Never Smokeless tobacco: Never Substance Use Topics Alcohol use: Yes Comment: Casual-less than 10 a year Family History Problem Relation Age of Onset Prostate cancer Mother Colon cancer Mother Ovarian cancer Maternal Grandmother 59 at 64 Breast cancer Paternal Grandmother post menopausal Breast cancer Half-Sister 50 Home Medications Current Outpatient Medications: albuterol 90 mcg/actuation inhaler, Inhale 1 puff into the lungs every 4 (four) hours as needed., Disp: , Rfl: , Last Dispense: Unknown (patient-reported) aspirin 81 mg Cap, Take 81 mg by mouth daily., Disp: , Rfl: , Last Dispense: Unknown (patient-reported) atorvastatin (LIPITOR) 40 MG tablet, Take 40 mg by mouth daily., Disp: , Rfl: , Last Dispense: Unknown (patient-reported) bisacodyl (DULCOLAX) 10 mg suppository, Place 10 mg rectally daily., Disp: , Rfl: , Last Dispense: Unknown (patient-reported) cholecalciferol 25 MCG (1,000 unit) tablet, Take 1,000 Units by mouth daily., Disp: , Rfl: , Last Dispense: Unknown (patient-reported) dexAMETHasone (DECADRON) 2 MG tablet, Take 2 tablets (4 mg total) by mouth 2 (two) times a day withmeals., Disp: 30 tablet, Rfl: 0, Last Dispense: Unknown (outside pharmacy) EMGALITY PEN 120 mg/mL subcutaneous injection, Inject 120 mg under the skin every 30 (thirty) days., Disp: , Rfl: , Last Dispense: Unknown (patient-reported) yogfsepogll-hwjavwodi-genfcnyh (TRELEGY ELLIPTA) 100-62.5-25 mcg inhalation powder, Inhale 1 puff into the lungs daily., Disp: , Rfl: , Last Dispense: Unknown (patient-reported) LEVOXYL 125 mcg tablet, Take 125 mcg by mouth every morning., Disp: , Rfl: , Last Dispense: Unknown(patient-reported) lidocaine (LIDODERM) 5 %, Place 1 patch onto the skin daily., Disp: , Rfl: , Last Dispense: Unknown(patient-reported) LORazepam (ATIVAN) 0.5 MG tablet, Take 0.5 mg by mouth every 6 (six) hours as needed for anxiety., Disp: , Rfl: , Last Dispense: Unknown (patient-reported) meclizine (ANTIVERT) 12.5 mg tablet, Take 12.5 mg by mouth 3 (three) times a day as needed., Disp: , Rfl: , Last Dispense: Unknown (patient-reported) morphine (MSIR) 15 MG tablet, Take 15 mg by mouth every 6 (six) hours as needed. Breaks in half forleft chest pain after thoracotomy, Disp: , Rfl: , Last Dispense: Unknown (patient-reported) ondansetron (ZOFRAN) 8 MG tablet, Take 1 tablet (8 mg total) by mouth every 8 (eight) hours as needed for nausea., Disp: 30 tablet, Rfl: 1, Last Dispense: Unknown (outside pharmacy) pantoprazole (PROTONIX) 40 MG tablet, Take 40 mg by mouth daily., Disp: , Rfl: , Last Dispense: Unknown (patient-reported) pregabalin (LYRICA) 100 MG capsule, Take 100 mg by mouth daily., Disp: , Rfl: , Last Dispense: Unknown (patient-reported) prochlorperazine (COMPAZINE) 10 MG tablet, Take 1 tablet (10 mg total) by mouth every 6 (six) hoursas needed (nausea)., Disp: 30 tablet, Rfl: 1, Last Dispense: Unknown (outside pharmacy) sertraline (ZOLOFT) 25 MG tablet, Take 100 mg by mouth daily. 200mg daily, Disp: , Rfl: , Last Dispense: Unknown (patient-reported) ursodioL (ACTIGALL) 500 MG tablet, Take 500 mg by mouth 2 (two) times a day., Disp: , Rfl: , Last Dispense: Unknown (patient-reported) No current facility-administered medications for this visit. Facility-Administered Medications Ordered in Other Visits: prochlorperazine edisylate (COMPAZINE) injection 10 mg, 10 mg, Intravenous, Once, Laxmi Avalos PA-C Allergies Allergies Allergen Reactions Diatrizoate Swathi-Diatrizoat Sod Erythema, Hives, Itching and Rash Hydrocodone-Acetaminophen Hives and Itching Oxycodone Hives, Itching and Rash Oxycodone-Acetaminophen Itching Sulfa (Sulfonamide Antibiotics) Hives and Itching Review of Systems: Review of Systems Objective: Vitals: Cycle 1 11/25/24 Pulse 79 BP 170/72 ! BP Method Automatic Patient Position Sitting BP Location Left arm Cuff Size Large Resp 20 Temp 36.9 ??C (98.4 ??F) Temp src Oral SpO2 98 % Pain Assessment 0-10 Pain Score 8 !: Data is abnormal Weight: Wt Readings from Last 3 Encounters: 11/21/24 106.8 kg (235 lb 7.2 oz) 11/02/24 107.8 kg (237 lb 10.5 oz) Physical Exam: Gen: in NAD, conversant?, A&Ox3, ill-appearing HEENT: NC/AT, non-icteric sclera, dry MM, no thrush or oral lesions Neck: supple, full ROM, no LAD CV: RRR, + systolic murmur Pulm: CTAB, in no respiratory distress Abd: soft, BS+, NT/ND Ext: warm, no LE edema Derm: no rashes? appreciated MSK: no spinal tenderness, ambulating independently without gait change Neuro: PERRL, grossly non-focal Labs: Blood Draw on 11/25/2024 Component Date Value Ref Range Status WBC 11/25/2024 7.75 4.00 - 10.00 K/uL Final RBC 11/25/2024 4.52 3.90 - 6.00 M/uL Final HGB 11/25/2024 12.2 11.5 - 16.4 g/dL Final HCT 11/25/2024 37.4 36.0 - 48.0 % Final PLT 11/25/2024 241 150 - 450 K/uL Final MCV 11/25/2024 82.7 80.0 - 100.0 fL Final MCH 11/25/2024 27.0 27.0 - 32.0 pg Final MCHC 11/25/2024 32.6 32.0 - 36.0 g/dL Final RDW 11/25/2024 15.5 (H) 11.5 - 14.5 % Final MPV 11/25/2024 12.1 (H) 8.4 - 12.0 fL Final NRBC 11/25/2024 0.00 0 /100 WBCs Final ABSOLUTE NRBC 11/25/2024 0.00 0 K/uL Final DIFF METHOD 11/25/2024 Auto Final NEUTS 11/25/2024 74.3 48.0 - 76.0 % Final LYMPHS 11/25/2024 20.3 18.0 - 41.0 % Final MONOS 11/25/2024 2.5 (L) 4.0 - 11.0 % Final EOS 11/25/2024 2.1 0.0 - 5.0 % Final BASOS 11/25/2024 0.4 0.0 - 1.5 % Final % IMMATURE GRANS 11/25/2024 0.4 0.0 - 1.0 % Final ABSOLUTE NEUTS 11/25/2024 5.77 1.92 - 7.60 K/uL Final ABSOLUTE LYMPHS 11/25/2024 1.57 0.72 - 4.10 K/uL Final ABSOLUTE MONOS 11/25/2024 0.19 0.16 - 1.10 K/uL Final ABSOLUTE EOS 11/25/2024 0.16 0.00 - 0.50 K/uL Final ABSOLUTE BASOS 11/25/2024 0.03 0.00 - 0.15 K/uL Final ABS IMMATURE GRANS 11/25/2024 0.03 0.00 - 0.10 K/uL Final SODIUM 11/25/2024 138 136 - 145 mmol/L Final POTASSIUM 11/25/2024 4.1 3.4 - 5.1 mmol/L Final CHLORIDE 11/25/2024 103 98 - 107 mmol/L Final CO2 11/25/2024 21 (L) 22 - 31 mmol/L Final BUN 11/25/2024 16 6 - 23 mg/dL Final CREATININE 11/25/2024 0.71 0.50 - 1.20 mg/dL Final GLUCOSE 11/25/2024 102 (H) 70 - 100 mg/dL Final ALBUMIN 11/25/2024 4.0 3.5 - 5.2 g/dL Final TOTAL PROTEIN 11/25/2024 7.0 6.4 - 8.3 g/dL Final CALCIUM 11/25/2024 9.3 8.8 - 10.7 mg/dL Final ALKALINE PHOSPHATASE 11/25/2024 171 (H) 35 - 104 U/L Final TOTAL BILIRUBIN 11/25/2024 1.3 (H) 0.2 - 1.2 mg/dL Final AST 11/25/2024 30 <33 U/L Final ALT 11/25/2024 14 <34 U/L Final GLOBULIN 11/25/2024 3.0 2.3 - 4.2 g/dL Final EGFR 11/25/2024 100 >59 mL/min/1.73m2 Final Estimated glomerular filtration rate calculated using the CKD-EPI refit equation. ANION GAP 11/25/2024 14 7 - 17 mmol/L Final MAGNESIUM 11/25/2024 2.4 1.7 - 2.6 mg/dL Final LACTIC ACID (MMOL/L) 11/25/2024 0.7 0.2 - 2.0 mmol/L Final Assessment & Plan: Rose Marie Ross is a 58-year-old woman with breast cancer status post cycle 1 day 1 neoadjuvant carbo/Taxol/pembrolizumab on 11/21/2024 who presented with severe nausea starting on cycle day 4 of treatment cycle. Her vitals are stable (BP elevated in the setting of distress and inability to take oral home medications. Labs are generally stable and reassuring - bilirubin is just over the normal threshold. Lactate is normal. She was given IV hydration as well as anti-emetics (IV zofran, dexamethasone, ativan) and IV pepcidwith improvement in symptoms. She was also given 2 mg IV morphine for generalized pain (takes MSIR at home). Patient reports overall in improvement. We will prescribe dexamethasone 4 mg po BID for the following 2-4 days, and primary team will consider adding dex as well as dose modification of chemo for next cycle. Medications/treatments Administered in the [facility] Cycle 1 11/25/24 dexAMETHasone IV 4 mg famotidine (PF) 20 mg/50 mL IV 20 mg LORazepam Oral 0.5 mg morphine Oral 30 mg morphine IV 2 mg ondansetron 8 mg IV 8 mg sodium chloride IV 500 mL 1,000 mL Outstanding Items at [facility] Clinic Discharge: Decadron 4 mg po BID Disposition following Clinic Evaluation: Home The patient's history, PE, diagnostic work-up and clinical course were discussed in detail with themaimary oncology SIFTER OPERATOR, Namrata Ahuja who was in agreement with this assessment and plan. Total time spent on 11/25/2024 for this visit in [id number] and non kzuv-qh-aqus time reviewing, documenting, and obtaining, clinical information, coordinating with the care team and/or other specialists, and counseling the patient: 120 minutes. Signed: Laxmi Avalos MS, PA-C Physician Medical Technologist Blood Bank, Acute Care Clinic ([facility]) [facility] [address] [place] [address] [facility] Pager: [phone] [email or web address] documented in this encounter Plan of Treatment Upcoming Encounters Date Type Department Care Team (Late st Contact Info) Description 11/30/2024 2:10 PM EDT Blood Draw Laboratory Services, [address], 2nd [place] [address] Narinder Qureshi MD, PhD [address] [place] [phone] [email or web address] 11/30/2024 3:00 PM EDT Office Visit [facility], [facility], [address], [address] [place] [address] Namrata Ahuja, DOUG [address] [place] [phone] [email or web address] 234 beds at the [facility] 11/30/2024 3:30 PM EDT Infusion Infusion [facility] Services [address], [address] [place] [address] Narinder Qureshi MD, PhD [address] [place] [phone] [email or web address] Aditya Santos RN [address] [place] [phone] [email or web address] 12/07/2024 3:30 PM EDT Infusion [facility] [address], [address] [address] Narinder Qureshi MD, PhD [address] [place] [phone] [email or web address] Jerrod Hazel RN [address] [place] [address] [email or web address] 12/14/2024 8:50 AM EDT Blood Draw Laboratory Services, [address], [address] [place], [place] Narinder Qureshi MD, PhD [address] [place] [phone] [email or web address] 12/14/2024 9:30 AM EDT Office Visit [facility], [facility], [address], [address] [place] [address] Namrata Ahuja, DOUG [address] [place] [phone] [email or web address] 234 beds at the [facility] 12/14/2024 10:30 AM EDT Infusion [facility] [address], [address] [place] [address] Narinder Qureshi MD, PhD [address] [place] [phone] [email or web address] Courtney Little RN [address] [place] [phone] [email or web address] 12/21/2024 3:30 PM EDT Infusion [facility] [address], [address] [address] Narinder Qureshi MD, PhD [address] [place] [phone] [email or web address] Shanita Blcak RN [address] [place] [address] [email or web address] 01/11/2025 8:30 AM EST Blood Draw Laboratory Services, [address], [address] [place] [address] Narinder Qureshi MD, PhD [address] [place] [phone] [email or web address] 01/11/2025 9:00 AM EST Office Visit [facility], [facility], [address], [address] [place] [address] Narinder Qureshi MD, PhD [address] [place] [phone] [email or web address] 01/25/2025 10:50 AM EST Blood Draw Laboratory Services, [address], [address] [place] [address] Narinder Qureshi MD, PhD [address] [place] [address] [email or web address] 01/25/2025 11:30 AM EST Office Visit [facility], [facility], [address], [address] [place] [phone] Namrata Ahuja, DOUG [address] [place] [phone] [email or web address] 234 beds at the [facility] 02/08/2025 10:50 AM EST Blood Draw Laboratory Services, [address] [facility], 2nd [place] [address] Narinder Qureshi MD, PhD [address] [place] [phone] [email or web address] 02/08/2025 11:30 AM EST Office Visit [facility], [facility], [facility] [address] [facility], 9th [place] [address] Narinder Qureshi MD, PhD [address] [place] [phone] [email or web address] documented as of this encounter Visit Diagnoses Diagnosis 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, estrogen receptor negative- Primary Nausea and vomiting, unspecified vomiting type Aortic valve stenosis, etiology of cardiac valve disease unspecified Chronic pain syndrome documented in this encounter Administered Medications Inactive Administered Medications - up to 3 most recent administrations Medication Order MAR Action Action Date Dose Rate Site morphine (MSIR) tablet 30 mg 30 mg, Oral, Once, On Thu11/25/24 at 1815, For 1 dose Given 11/25/2024 5:35 PM EDT 30 mg documented in this encounter Care Teams Manufacturing Management Associate Relationship Specialty Start Date End Date Huong Johnson MD [address] [place] [address] PCP - General Internal Medicine 10/18/24 Self-Referred, Patient Referring Physician 10/18/24 Narinder Qureshi MD, PhD [address] [place] [phone] [email or web address] Medical Oncology 10/18/24 Lou Chilel MD [address] [place] [phone] [email or web address] 10/18/24 Terrance Ordonez MD [address] [place] [address] [place] [address] Cardiology 11/02/24 Nicki Desir NP [address] [place] [address] [place] [address] Nurse Practitioner 11/02/24 Alexia Souza, [address] [phone] [email or web address] Medical Oncology 11/02/24 Aditya Santos, RN [address] [place] [address] [email or web address] Primary Infusion Nurse 11/25/24 documented as of this encounter Additional Source Comments The information contained in this document represents components of the legal health record. It is not the complete legal health record.[facility]
--- NOTE | 2024-11-28 10:40 | MHC.OFFVIS ---
Vital Signs 11/28/24 10:43 Height 5 ft 2 in Weight 235 lb 14.314 oz BMI 43.1 Intake Visit Reasons: genetic results (pt sick from chemo) Intake Note: Patient is scheduled via telehealth for genetic testing results Pt c/o: on the phone to discuss results, not feeling well was unable to be seen in office [employer] Required: No Accompanied by: Self / Same As Patient Allergies oxycodone (From PERCOCET) Allergy (Intermediate, Verified 11/28/24 10:44) HIVES Sulfa (Sulfonamide Antibiotics) (SULFA (SULFONAMIDE ANTIBIOTICS)) Allergy (Intermediate, Verified 11/28/24 10:44) HIVES sulfamethoxazole (From Bactrim) Allergy (Mild, Verified 11/28/24 10:44) Hives trimethoprim (From Bactrim) Allergy (Mild, Verified 11/28/24 10:44) Hives diatrizoate meglumine (Gastrografin) Allergy (Unknown, Verified 11/28/24 10:44) red rash Medication List - Last Reconciled 11/28/24 by Con Martins MD albuterol sulfate 90 mcg/actuation 2 puffs inhalation Q4-6H PRN aspirin (Ecotrin Low Strength) 81 mg PO DAILY atorvastatin 40 mg PO DAILY cane As directed cholecalciferol (vitamin D3) 50 mcg PO DAILY kfjpsfstrsc-szjyptgjy-hbnrwdli 200-62.5-25 mcg (Trelegy Ellipta) 1 inh inhalation DAILY galcanezumab-gnlm (Emgality Pen) mg subcut ipratropium-albuterol 0.5 mg-3 mg(2.5 mg base)/3 mL 3 mL inhalation Q6-8H PRN levothyroxine (Levoxyl) 125 mcg PO DAILY lidocaine 5% 1 patch topical DAILY lorazepam 0.5 mg PO BID PRN meclizine 12.5 mg PO DAILY PRN mesalamine ER 1.5 grams (4 x 0.375 gram) PO DAILY Held on 08/18/24. Instructions: Doctor's Order morphine 15 mg PO BID PRN pantoprazole 40 mg PO DAILY pregabalin 100 mg PO QID sertraline 150 mg PO DAILY ursodiol 500 mg PO BID jesus alberto (Ultra-Light Rollator misc) As directed HPI Comments Details: 58-year-old female patient with a newly diagnosed triple negative invasive breast carcinoma with ductal and lobular features and a high Ki-67. She is being treated at an outside institution with neoadjuvant chemotherapy. She presents today for a virtual visit because she is sick from her chemotherapy. She underwent genetic testing on 10/17/2024. This testing revealed no clinically significant mutations identified. There are no variance of uncertain significance identified as well. Based on her clinical history colonoscopy every 5 years was recommended. No other clinical modifications are recommended. Her family history is significant for colon cancer and prostate cancer but no breast cancer. She is 2 para 2. She has a previous history of lymphoma and underwent mantle radiation at [facility] many years ago. She has residual cardiac and pulmonary effects from the radiation therapy and recently underwent a PET scan in February 2024 which was negative for any suspicious changes in the breast. [facility] Medical History Triple negative breast cancer Primary invasive malignant neoplasm of left female breast History of mantle field radiation therapy (~1992) Environmental allergies History of shingles CAD (coronary artery disease) Stented coronary artery (~2022) Hyperlipidemia Obesity Mitral stenosis Anxiety and depression Tubular adenoma of colon History of Hodgkin's lymphoma (~1992) Radiation-induced heart disease Aortic stenosis Asthma Hypothyroid Hepatic steatosis GERD (gastroesophageal reflux disease) Herpes Surgical History History of lung surgery History of lymph node excision (03/12/23) History of lung biopsy (02/11/23) History of repair of hiatal hernia (~2017) History of thoracentesis (~2018) History of ankle surgery History of section History of colonoscopy History of heart artery stent (~2022) History of arthroscopy of right shoulder History of sleeve gastrectomy (~2017) History of esophagogastroduodenoscopy (EGD) History of cholecystectomy Family History Mother Colon cancer Father Hypertension Prostate cancer Son Diabetes Daughter Autism Social History Household Members: Spouse and Family Housing: House Are you a primary care professionals to a significant other at home: No Do you presently have visiting nurse or other home services: No Alcohol intake: current Alcohol intake frequency: holidays/special occasions only Patient Tobacco Use Status: Never used Tobacco e-Cigarette/Vaping Use: Never Used Substance Use Type: Marijuana service: No 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: employed 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 Review of Systems Const Unobtainable due to mental condition Physical Exam Exam Exam: Exam deferred, virtual visit Vital Signs: BMI result Body Mass Index 43.1 Telehealth Telehealth Telehealth Platform: Telephone Location of provider rendering services: practice address Location of patient: address on file Patient Identification confirmed using: Name, : Yes Telehealth method: voice only Patient verbally consented to treatment: Yes Patient verbally consented to billing insurance company: Yes Patient informed of any privacy concerns related to visit: Yes Assessment & Plan Assessment & Plan (1) Triple negative breast cancer: Code(s): C50.919 - Malignant neoplasm of unspecified site of unspecified female breast; Z17.421 - Hormone receptor negative with human epidermal growth factor receptor 2 negative status Category: Medical (2) Primary invasive malignant neoplasm of left female breast: Code(s): C50.912 - Malignant neoplasm of unspecified site of left female breast Category: Medical Plan Patient continues to be treated for her left breast cancer and underwent a virtual visit today for discussion regarding her genetic testing. Genetic testing revealed no clinically significant mutations and no variance of unknown significance. She reports that she is being followed by Dr. Chowdhury in his previously undergone colonoscopies. Recommendation for Q 5 year colonoscopies was discussed as well. She should follow up based on medical oncology evaluation. Coding Level of Care Code Est Pt Level 3 (71071) Diagnoses Triple negative breast cancer C50.919; Z17.421 Primary invasive malignant neoplasm of left female breast C50.912
[2024-11-28 10:43] VITALS: BMI 43.1
--- OUTSIDE RECORDS SUMMARY | 2024-11-28 13:16 | XMS_ITS | Encounter Summary ---
Author Organization [facility] Address [address] [facility] [facility] [address] [place] [address] Phone Care Team Providers Care Fiscal Services Director Name Role Phone Huong Johnson MD Primary Care Provider + [phone] Self-Referred, Patient Unavailable Unavailab Narinder Hutchinson MD, PhD Unavailable + [phone] Lou Chilel MD Unavailable + [phone] Terrance Ordonez MD Unavailable [phone] Nicki Desir NP Unavailable [phone] Alexia Souza [facility] Unavailable [phone] Aditya Santos RN Unavailable [phone] Reason for Visit * Reason Onset Date Comments Care Coordination 11/25/2024 Encounter Details Date Type Department Care Team (Late st Contact Info) Description 11/25/2024 Telephone [facility], [facility], [facility] [address] [facility] [place] [address] Jeanne Walker, RN [address] [place] [phone] [email or web address] Care Coordination Social History Tobacco Use Types Packs/Day Years [...] high school, GED, job training, learning the Wolof language, technical skills, or developing parenting skills)? [...] as of this encounter Progress Notes * Jeanne Walker RN - 11/25/2024 10:04 AM EDT Patient paged MD overnight to report nausea, dehydration, fatigue. S/P C1D1 Taxol/Carbo/Pembro on 11/21/24. This RN called to check in on Rose Marie. Patient answered phone sounding unwell, reports she continues with nausea despite using both Zofran and Compazine. Denies vomiting, stating I haven't eaten indays, so there is nothing to throw up . Patient hard to hear on phone, sounding quiet, fatigued. Rose Marie she has been unable to hydrate adequately due to nausea and significant fatigue. She expressed concerns for feeling this way next cycle, this RN provided reassurance that the team can order additional anti-emetics, IVF as needed for next cycle. Discussed with Dr. Qureshi- recommend ACC at LW for symptoms unable to be managed at home. Anticipate IVF, anti-emetics, provider eval for dehydration/electrolyte imbalances. Patient in agreement with plan. Lives in [place] so will need 1.5 hours to arrive to [facility], she will find someone to drive her as feels she is not well enough to drive safely. This RN paged [facility] LW at 10:12 am. documented in this encounter Plan of Treatment Upcoming Encounters Date Type Department Care Team (Late st Contact Info) Description 11/30/2024 2:10 PM EDT Blood Draw Laboratory Services, [facility] [address] [place] [address], [address] [place] [address] Narinder Qureshi MD, PhD [address] [place] [phone] [email or web address] 11/30/2024 3:00 PM EDT Office Visit [facility], [facility], [address] [place] [address] Namrata Ahuja, DOUG [address] [place] [phone] [email or web address], [facility] 11/30/2024 3:30 PM EDT Infusion [facility] [address], [address] [place] [address] Narinder Qureshi MD, PhD [address] [place] [phone] [email or web address] Aditya Santos RN [address] [place] [phone] [email or web address], [facility] 12/07/2024 3:30 PM EDT Infusion [facility] [address] [place] [address] Narinder Qureshi MD, PhD [address] [place] [phone] [email or web address] Jerrod Hazel, FAZAL [address] [place] [phone] [email or web address] 12/14/2024 8:50 AM EDT Blood Draw Laboratory Services, [address] [place] [address] Narinder Qureshi MD, PhD [address] [place] [phone] [email or web address] 12/14/2024 9:30 AM EDT Office Visit [facility], [facility], [address], [address] [place] [address] Namrata Ahuja, DOUG [address] [place] [phone] [email or web address] 12/14/2024 10:30 AM EDT Infusion [facility] [address] [place] [address] Narinder Qureshi MD, PhD [address] [place] [phone] [email or web address] Courtney Little RN [address] [place] [phone] [email or web address] 12/21/2024 3:30 PM EDT Infusion [facility] [address] [place] [address] Narinder Qureshi MD, PhD [address] [place] [phone] [email or web address] Shanita Black, FAZAL [address] [place] [phone] [email or web address] 01/11/2025 8:30 AM EST Blood Draw [facility] Services, [address] [place], [place] Narinder Qureshi MD, PhD [address] [place] [phone] [email or web address] 01/11/2025 9:00 AM EST Office Visit [facility], [facility], [address], [address] [place] [address] Narinder Qureshi MD, PhD [address] [place] [phone] [email or web address] 01/25/2025 10:50 AM EST Blood Draw [facility] Services, [address], [address] [place] [address] Narinder Qureshi MD, PhD [address] [place] [phone] [email or web address] 01/25/2025 11:30 AM EST Office Visit [facility], [facility], [address], [address] [place] [address] Namrata Ahuja, FURNACE LINER [address] [place] [phone] [email or web address] 02/08/2025 10:50 AM EST [facility], [address] [place], [place] Narinder Qureshi MD, PhD [address] [place] [phone] [email or web address] 02/08/2025 11:30 AM EST Office Visit [facility], [facility], [facility] [address] [facility] [address], [address] [place] [address] Narinder Qureshi MD, PhD [address] [place] [phone] [email or web address] documented as of this encounter Visit Diagnoses Not on filedocumented in this encounter Care Teams Fiscal Services Director Relationship Specialty Start Date End Date Huong Johnson MD [address] [place] [address] PCP - General Internal Medicine 10/18/24 Self-Referred, Patient Referring Physician 10/18/24 Narinder Qureshi MD, PhD [address] [place] [phone] [email or web address] Medical Oncology 10/18/24 Lou Chilel MD [address] [place] [phone] [email or web address] Surgical [email or web address] 10/18/24 Terrance Ordonez MD [address] [place] [address] [place] [address] Cardiology 11/02/24 Nicki Desir NP [address] [place] [address] [place] [address] Nurse Practitioner 11/02/24 Alexia Souza, [address] [phone] [email or web address] [employer] Medical Oncology 11/02/24 Aditya Santos, FAZAL [address] [place] [phone] [email or web address] Primary Infusion Nurse 11/25/24 documented as of this encounter Additional Source Comments The information contained in this document represents components of the legal health record. It is not the complete legal health record.[facility]
--- OUTSIDE RECORDS SUMMARY | 2024-11-28 13:16 | XMS_ITS | Encounter Summary ---
Author Organization [facility] Address [address] [facility] [address] [place] [address] Phone Care Team Providers Care Glove Examiner Name Role Phone Huong Johnson MD Primary Care Provider + [phone] Self-Referred, Patient Unavailable Unavailab Narinder Hutchinson MD, PhD Unavailable + [phone] Lou Chilel MD Unavailable + [phone] Terrance Ordonez MD Unavailable [phone] Nicki Desir NP Unavailable [phone] Alexia Souza Unavailable [phone] Aditya Santos RN Unavailable [phone] Encounter Details Date Type Department Care Team (Late st Contact Info) Description 11/25/2024 Orders Only Acute Care Clinic, [facility] [place] [address] [facility], 10th [place] [address] Laxmi Avalos PA-C [address] [place] [phone] [email or web address]. [facility] 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, estrogen receptor negative (Primary Dx); Nausea Social History Tobacco Use Types Packs/Day Years [...] high school, GED, job training, learning the Tristanian language, technical skills, or developing parenting skills)? [...] 2:10 PM EDT [facility], [address], 2nd [place] [address] Narinder Qureshi MD, PhD [address] [place] [phone] [email or web address] 11/30/2024 3:00 PM EDT Office Visit [facility], Stephanie Preciado [facility], [address], [address]th [place] [address] Namrata Ahuja, DOUG [address] [place] [phone] [email or web address]@[email or web address] 11/30/2024 3:30 PM EDT Infusion Infusion Therapy [facility] [place] [address], [address], [address]th [place] [address] Narinder Qureshi MD, PhD [address] [place] [phone] [email or web address] Aditya Santos RN [address] [place] [phone] [email or web address] 12/07/2024 3:30 PM EDT Infusion [facility] [place] [address], [address], [address]th [place] [address] Narinder Qureshi MD, PhD [address] [place] [phone] [email or web address] Jerrod Hazel RN [address] [place] [address] [email or web address] 12/14/2024 8:50 AM EDT [facility], [address], 2nd Floor [place], [place] Narinder Qureshi MD, PhD [address] [place] [phone] [email or web address] 12/14/2024 9:30 AM EDT Office Visit [facility], Stephanie Preciado [facility], [address], [address]th [place] [address] Namrata Ahuja, TESTING MANAGER [address] [place] [phone] [email or web address]@[email or web address] 12/14/2024 10:30 AM EDT Infusion [facility] [place] , [address], [address]th [place] [address] Narinder Qureshi MD, PhD [address] [place] [address] [email or web address] Courtney Little, FAZAL [address] [place] [phone] [email or web address] 12/21/2024 3:30 PM EDT Infusion [facility]fusion [facility] [place] [address], [address], [address]th [place] [address] Narinder Qureshi MD, PhD [address] [place] [phone] [email or web address] Shanita Black RN [address] [place] [phone] [email or web address] 01/11/2025 8:30 AM EST [facility], [address], 2nd [place] [address] Narinder Qureshi MD, PhD [address] [place] [address] [email or web address] 01/11/2025 9:00 AM EST Office Visit [facility], [facility], [address], [address] [place] [address] Narinder Qureshi MD, PhD [address] [place] [phone] [email or web address] 01/25/2025 10:50 AM EST [facility], [address], [address]nd [place] [address] Narinder Qureshi MD, PhD [address] [place] [phone] [email or web address] 01/25/2025 11:30 AM EST Office Visit [facility], [facility], [address], [address] [place] [address] Namrata Ahuja, TESTING MANAGER [address] [place] [address] [email or web address] 02/08/2025 10:50 AM EST [facility], [address], 2nd [place] [address] Narinder Qureshi MD, PhD [address] [place] [address] [email or web address] 02/08/2025 11:30 AM EST Office Visit [facility], Stephanie Preciado [facility], [address], [address]th [place] [address] Narinder Qureshi MD, PhD [address] [place] [phone] [email or web address] documented as of this encounter Results * Lactate (11/25/2024 1:28 PM EDT) Pathologist [facility] LACTIC ACID (MMOL/L) 0.7 0.2 - 2.0 mmol/L [facility] Blood 11/25/2024 1:28 PM EDT 11/25/2024 1:32 PM EDT us Laxmi Avalos PA-C LAB BLOOD ORDERABLES Final Result [facility] [address] [place] [phone] * Magnesium (11/25/2024 1:28 PM EDT) Pathologist [facility] MAGNESIUM 2.4 1.7 - 2.6 mg/dL [facility] Blood 11/25/2024 1:28 PM EDT 11/25/2024 1:32 PM EDT us Laxmi Avalos PA-C LAB BLOOD ORDERABLES Final Result [facility] [address] [place] [address] * (ABNORMAL) Comprehensive metabolic panel (11/25/2024 1:28 PM EDT) SODIUM 138 136 - 145 mmol/L [facility] POTASSIUM 4.1 3.4 - 5.1 mmol/L [facility] CHLORIDE 103 98 - 107 mmol/L [facility] CO2 21(L) 22 - 31 mmol/L [facility] BUN 16 6 - 23 mg/dL [facility] CREATININE 0.71 0.50 - 1.20 mg/dL [facility] GLUCOSE 102(H) 70 - 100 mg/dL [facility] ALBUMIN 4.0 3.5 - 5.2 g/dL [facility] TOTAL PROTEIN 7.0 6.4 - 8.3 g/dL [facility] CALCIUM 9.3 8.8 - 10.7 mg/dL [facility] ALKALINE PHOSPHATASE 171(H) 35 - 104 U/L [facility] TOTAL BILIRUBIN 1.3(H) 0.2 - 1.2 mg/dL [facility] AST 30 <33 U/L [facility] ALT 14 <34 U/L [facility] GLOBULIN 3.0 2.3 - 4.2 g/dL [facility] EGFR 100 >59 mL/min/1.7 3m2 [facility] Comment:Estimated glomerular filtration rate calculated using the CKD-EPI refit equation. ANION GAP 14 7 - 17 mmol/L [facility] Blood 11/25/2024 1:28 PM EDT 11/25/2024 1:32 PM EDT Laxmi Avalos PA-C LAB BLOOD ORDERABLES Final Result [facility] [address] [place] [address] * (ABNORMAL) CBC and differential (11/25/2024 1:28 PM EDT) WBC 7.75 4.00 - 10.00 K/uL [facility] RBC 4.52 3.90 - 6.00 M/uL [facility] HGB 12.2 11.5 - 16.4 g/dL [facility] HCT 37.4 36.0 - 48.0 % [facility] PLT 241 150 - 450 K/uL [facility] MCV 82.7 80.0 - 100.0 fL [facility] MCH 27.0 27.0 - 32.0 pg [facility] MCHC 32.6 32.0 - 36.0 g/dL [facility] RDW 15.5(H) 11.5 - 14.5 % [facility] MPV 12.1(H) 8.4 - 12.0 fL [facility] NRBC 0.00 0 /100 WBCs [facility] ABSOLUTE NRBC 0.00 0 K/uL [facility] DIFF METHOD [employer] [facility] NEUTS 74.3 48.0 - 76.0 % [facility] LYMPHS 20.3 18.0 - 41.0 % [facility] MONOS 2.5(L) 4.0 - 11.0 % [facility] EOS 2.1 0.0 - 5.0 % [facility] BASOS 0.4 0.0 - 1.5 % [facility] % IMMATURE GRANS 0.4 0.0 - 1.0 % [facility] ABSOLUTE NEUTS 5.77 1.92 - 7.60 K/uL [facility] ABSOLUTE LYMPHS 1.57 0.72 - 4.10 K/uL [facility] ABSOLUTE MONOS 0.19 0.16 - 1.10 K/uL [facility] ABSOLUTE EOS 0.16 0.00 - 0.50 K/uL [facility] ABSOLUTE BASOS 0.03 0.00 - 0.15 K/uL [facility] ABS IMMATURE GRANS 0.03 0.00 - 0.10 K/uL [facility] Blood 11/25/2024 1:28 PM EDT 11/25/2024 1:32 PM EDT us Laxmi Avalos PA-C LAB BLOOD ORDERABLES Final Result Performing Organization Address City/State/[facility] Co de Phone Number [facility] [address] [place] [address] documented in this encounter Visit Diagnoses Diagnosis 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, estrogen receptor negative- Primary Nausea Nausea alone documented in this encounter Care Teams Glove Examiner Relationship Specialty Start Date End Date Huong Johnson MD [address] [place] [address] PCP - General Internal Medicine 10/18/24 Self-Referred, Patient Referring Physician 10/18/24 Narinder Qureshi MD, PhD [address] [place] [address] [email or web address] Medical Oncology 10/18/24 Lou Chilel MD [address] [place] [address] [email or web address] Surgical Oncology 10/18/24 Terrance Ordonez MD [address] [place] [address] [address] [place]aqu[place] [address] Cardiology 11/02/24 Nicki Desir NP [address] [place] [address] [place] [address] Nurse Practitioner 11/02/24 Alexia Souza, [address] [address] [email or web address] Stratigraphy Teacher Medical Oncology 11/02/24 Aditya Santos, RN [address] [place] [address] [email or web address] Primary Infusion Nurse 11/25/24 documented as of this encounter Additional Source Comments The information contained in this document represents components of the legal health record. It is not the complete legal health record.[facility]
--- OUTSIDE RECORDS SUMMARY | 2024-11-28 13:16 | XMS_ITS | Encounter Summary ---
Author Organization [facility] Address [address] [place] [address] Care Team Providers Care Sampling Expert Name Role Phone Huong Johnson MD Primary Care Provider [phone] Encounter Details Date Type Department Care Team (Late st Contact Info) Description 04/05/[address] [facility] - Main Lab [address] [facility] [place] [address] Darien Smith MD [address] [place] [address] [address] [place], [address] Anemia, unspecified Social History Tobacco Use [...] care for your loved ones. For example, exceptional children's teacher or elderly care for an older [...] Care Team (Late st Contact Info) Description 12/16/2024 1:00 PM EDT Appointment [facility] CT Scan [address] [place] [address] 12/26/2024 9:00 AM EDT Office Visit Thoracic Surgery - [place] [address] [facility] [address] [place] [phone] Simone Harris MD [address] [place] [phone] documented as of this encounter Visit Diagnoses Diagnosis Anemia, unspecified documented in this encounter Care Teams Sampling Expert Relationship Specialty Start Date End Date Huong Johnson MD [address] [place] [address] PCP - General Internal Medicine 03/03/24 documented as of this encounter
--- OUTSIDE RECORDS SUMMARY | 2024-11-28 13:16 | XMS_ITS | Encounter Summary ---
Author Organization [facility] Address [address] [place] [address] Care Team Providers Care Liquor Tester Name Role Phone Huong Johnson MD Primary Care Provider [phone] Encounter Details Date Type Department Care Team (Late st Contact Info) Description 03/29/2024 Lab Requisition [facility] - Main Lab [address] [facility] [place] [address] Darien Smith MD [address] [place] [address] [address] [place], [address] Anemia, unspecified Social History Tobacco Use [...] for your loved ones. For example, child protection specialist or elderly care for an older [...] Info) Description 12/16/2024 1:00 PM EDT Appointment [facility] CT Scan [address] [place] [address] 12/26/2024 9:00 AM EDT Office Visit Thoracic Surgery - [place] [address] [facility] [address] [place] [phone] Simone Harris MD [address] [place] [phone] documented as of this encounter Procedures Procedure Name Priority Date/Time Associated Diagnosis Comments COMPLETE BLOOD COUNT Routine 03/30/2024 5:10 AM EST Anemia, unspecified BASIC METABOLIC PANEL Routine 03/30/2024 5:10 AM EST Anemia, unspecified documented in this encounter Results * (ABNORMAL) Basic metabolic panel (03/30/2024 5:10 AM EST) Sodium 143 133 - 145 mmol/L LAB CHEMISTRY METHOD 03/30/2024 11:55 AM [facility] Potassium 4.7 3.5 - 5.5 mmol/L LAB CHEMISTRY METHOD 03/30/2024 11:55 AM [facility] Comment:Hemolysis present Chloride 112(H) 96 - 110 mmol/L LAB CHEMISTRY METHOD 03/30/2024 11:55 AM [facility] CO2 26 21 - 32 mmol/L LAB CHEMISTRY METHOD 03/30/2024 11:55 AM [facility] Anion Gap 5 3 - 11 LAB CHEMISTRY METHOD 03/30/2024 11:55 AM [facility] Glucose 70 70 - 100 mg/dL LAB CHEMISTRY METHOD 03/30/2024 11:55 AM [facility] BUN 7 5 - 25 mg/dL LAB CHEMISTRY METHOD 03/30/2024 11:55 AM [facility] Creatinine 0.46(L) 0.50 - 1.10 mg/dL LAB CHEMISTRY METHOD 03/30/2024 11:55 AM [facility] eGFR 112 >=60 mL/min/1. 73m2 LAB CHEMISTRY METHOD 03/30/2024 11:55 AM [facility] Comment:Calculation based on the Chronic Kidney Disease Epidemiology Collaboration (CKD-EPI) equation refit without adjustment for race. BUN/Creatinine Ratio 15.2 LAB CHEMISTRY METHOD 03/30/2024 11:55 AM [facility] Calcium 8.7 8.5 - 10.5 mg/dL LAB CHEMISTRY METHOD 03/30/2024 11:55 AM [facility] Blood Venous blood specimen / Unknown Venipuncture / Unknown 03/30/2024 5:10 AM EST 03/30/2024 10:53 AM EST us Darien Smith MD LAB BLOOD ORDERABLES Final Resul t [facility] [address] [place] [address], * (ABNORMAL) Complete blood count (03/30/2024 5:10 AM EST) WBC 6.8 4.8 - 10.8 K/mcL LAB HEMETOLOGY METHOD 03/30/2024 11:54 AM [facility] RBC 3.60(L) 3.80 - 4.80 M/mcL LAB HEMETOLOGY METHOD 03/30/2024 11:54 AM [facility] Hemoglobin 10.2(L) 11.5 - 16.0 g/dL LAB HEMETOLOGY METHOD 03/30/2024 11:54 AM [facility] Hematocrit 33.9(L) 35.0 - 47.0 % LAB HEMETOLOGY METHOD 03/30/2024 11:54 AM [facility] MCV 93.1 79.0 - 98.0 FL LAB HEMETOLOGY METHOD 03/30/2024 11:54 AM [facility] MCH 28.0 27.0 - 32.0 pcg LAB HEMETOLOGY METHOD 03/30/2024 11:54 AM [facility] MCHC 30.1(L) 32.0 - 37.0 g/dL LAB HEMETOLOGY METHOD 03/30/2024 11:54 AM [facility] RDW 15.9(H) 11.0 - 15.0 % LAB HEMETOLOGY METHOD 03/30/2024 11:54 AM EST [facility] Platelets 193 130 - 400 K/mcL LAB HEMETOLOGY METHOD 03/30/2024 11:54 AM [facility] MPV 12.1(H) 7.0 - 11.0 FL LAB HEMETOLOGY METHOD 03/30/2024 11:54 AM EST [facility] NRBC 0.0 <1.0 % LAB HEMETOLOGY METHOD 03/30/2024 11:54 AM [facility] NRBC Absolute 0.00 <0.10 K/mcL LAB HEMETOLOGY METHOD 03/30/2024 11:54 AM [facility] Blood Venous blood specimen / Unknown Venipuncture / Unknown 03/30/2024 5:10 AM EST 03/30/2024 10:53 AM EST us Darien Smith MD LAB BLOOD ORDERABLES Final Resul t [facility] [address] [place] [address], documented in this encounter Visit Diagnoses Diagnosis Anemia, unspecified documented in this encounter Care Teams Liquor Tester Relationship Specialty Start Date End Date Huong Johnson MD [address] [address] PCP - General Internal Medicine 03/03/24 documented as of this encounter
--- OUTSIDE RECORDS SUMMARY | 2024-11-28 13:16 | XMS_ITS | Encounter Summary ---
Author Organization [facility] Address [address] [facility] [address] [place] [address] Phone Care Team Providers Care Machine Setter And Repairer Name Role Phone Huong Johnson MD Primary Care Provider [phone] Self-Referred, Patient Unavailable Unavailab Narinder Htuchinson MD, PhD Unavailable + [phone] Lou Chilel MD Unavailable + [phone] Terrance Ordonez MD Unavailable [phone] Nicki Desir NP Unavailable [phone] Alexia SouzaSW Unavailable [phone] Encounter Details Date Type Department Care Team (Late st Contact Info) Description 11/23/2024 Orders Only [facility], [facility], [facility] [place] [facility] [place] [address] [facility] 4th [place] [address] Namrata Ahuja, SILO MAN [address] [place] [address] [email or web address] Malignant neoplasm of nipple of right breast in female, unspecified estrogen receptor status (Primary Dx) Social History Tobacco Use Types [...] high school, GED, job training, learning the [place] language, technical skills, or developing parenting skills)? [...] 2:10 PM EDT Blood Draw [facility] Services, [address], 2nd [place] [address] Narinder Qureshi MD, PhD [address] [place] [phone] [email or web address] 11/30/2024 3:00 PM EDT Office Visit [facility], [facility], [address], [address] [place] [address] Namrata Ahuja, DOUG [address] [place] [phone] [email or web address] 11/30/2024 3:30 PM EDT Infusion [facility] [address], [address] [place] [address] Narinder Qureshi MD, PhD [address] [place] [phone] [email or web address] Aditya Santos, FAZAL [address] [place] [address] [email or web address] 12/07/2024 3:30 PM EDT Infusion Infusion [facility] Services [address] [place] [address] Narinder Qureshi MD, PhD [address] [place] [phone] [email or web address] Jerrod Hazel RN [address] [place] [address] [email or web address] 12/14/2024 8:50 AM EDT [facility], [address] [place], [place] Narinder Qureshi MD, PhD [address] [place] [phone] [email or web address] 12/14/2024 9:30 AM EDT Office Visit [facility], Stephanie Preciado [place] [facility], [address], [address] [place] [address] Namrata Ahuja, [address] [phone] [email or web address] 12/14/2024 10:30 AM EDT Infusion [facility] [address], [address] [place] [address] Narinder Qureshi MD, PhD [address] [place] [phone] [email or web address] Courtney Little, FAZAL [address] [place] [phone] [email or web address] 12/21/2024 3:30 PM EDT Infusion Infusion Therapy Services [place] [address], [address], [address] [place] [address] Narinder Qureshi MD, PhD [address] [place] [phone] [email or web address] Shanita Black RN [address] [place] [address] [email or web address] 01/11/2025 8:30 AM EST [facility], [address] [place] [address] Narinder Qureshi MD, PhD [address] [place] [phone] [email or web address] 01/11/2025 9:00 AM EST Office Visit [facility], [facility], [address], [place] [address] Narinder Qureshi MD, PhD [address] [place] [phone] [email or web address] 01/25/2025 10:50 AM EST [facility], [address] [place] [address] Narinder Qureshi MD, PhD [address] [place] [phone] [email or web address] 01/25/2025 11:30 AM EST Office Visit [facility], [facility], [address], [address] [place] [address] Namrata Ahuja, SILO MAN [address] [place] [phone] [email or web address] 02/08/2025 10:50 AM EST [facility], [address], [address] Floor [place], [place] Narinder Qureshi MD, PhD [address] [place] [address] [email or web address] 02/08/2025 11:30 AM EST Office Visit [facility], [facility], [address], [address] [place] [address] Narinder Qureshi MD, PhD [address] [place] [phone] [email or web address] Scheduled Orders Name Type Priority Associated Diagnoses Orde r Schedule CBC and differential Lab Routine Malignant neoplasm of nipple of right breast in female, unspecified estrogen receptor status Every 6 months for 10 Occurrences starting 11/23/2024 until 11/23/2025 Comprehensive metabolic panel Lab Routine Malignant neoplasm of nipple of right breast in female, unspecified estrogen receptor status Every 6 months for 10 Occurrences starting 11/23/2024 until 11/23/2025 Magnesium Lab Routine Malignant neoplasm of nipple of right breast in female, unspecified estrogen receptor status Every 6 months for 10 Occurrences starting 11/23/2024 until 11/23/2025 Phosphorus Lab Routine Malignant neoplasm of nipple of right breast in female, unspecified estrogen receptor status Every 6 months for 10 Occurrences starting 11/23/2024 until 11/23/2025 documented as of this encounter Visit Diagnoses Diagnosis Malignant neoplasm of nipple of right breast in female, unspecified estrogen receptor status- Primary documented in this encounter Care Teams Machine Setter And Repairer Relationship Specialty Start Date End Date Huong Johnson MD [address] [place] [address] PCP - General Internal Medicine 10/18/24 Self-Referred, Patient Referring Physician 10/18/24 Narinder Qureshi MD, PhD [address] [place] [phone] [email or web address] Medical Oncology 10/18/24 Lou Chilel MD [address] [place] [phone] [email or web address] Surgical Oncology 10/18/24 Terrance Ordonez MD [address] [place] [address] Dr George [address] [place] [address] Cardiology 11/02/24 Nicki Desir NP [address] [place] [address] [place] [address] Nurse Practitioner 11/02/24 Alexia Souza, [address] [address] [email or web address] Sales Agent Medical Oncology 11/02/24 documented as of this encounter Additional Source Comments The information contained in this document represents components of the legal health record. It is not the complete legal health record.[facility]
--- OUTSIDE RECORDS SUMMARY | 2024-11-28 13:16 | XMS_ITS | Encounter Summary ---
Author Organization [facility] Address [address] [place] [address] Care Team Providers Care Prism Inspector Name Role Phone Huong Johnson MD Primary Care Provider [phone] Encounter Details Date Type Department Care Team (Late st Contact Info) Description 03/18/2024 Lab Requisition [facility] - Main Lab [address] [facility] [place] [address] Darien Smith MD [address] [place] [address] [address] [place], [phone] Anemia, unspecified Social History Tobacco Use [...] your loved ones. For example, child protective services social worker or elderly care for an [...] Info) Description 12/16/2024 1:00 PM EDT Appointment [facility] CT Scan [address] [place] [address] 12/26/2024 9:00 AM EDT Office Visit Thoracic Surgery - [place] [address] [facility] [address] [place] [phone] Simone Harris MD [address] [place] [phone] documented as of this encounter Procedures Procedure [...] LAB CHEMISTRY METHOD 03/18/2024 12:02 PM EST [facility] Blood Venous blood specimen / Unknown Venipuncture / Unknown 03/18/2024 6:30 AM EST 03/18/2024 10:39 AM EST us Darien Smith MD LAB BLOOD ORDERABLES Final Resul t Performing Organization Address City/State/[facility] Co de Phone Number [facility] [address] [place] [address], * (ABNORMAL) Thyroid stimulating hormone (03/18/2024 6:30 AM EST) TSH 5.29(H) 0.40 - 4.00 mcIU/mL LAB CHEMISTRY METHOD 03/18/2024 12:02 PM EST [facility] Blood Venous blood specimen / Unknown Venipuncture / Unknown 03/18/2024 6:30 AM EST 03/18/2024 10:39 AM EST us Darien Smith MD LAB BLOOD ORDERABLES Final Resul t [facility] [address] [place] [address], * (ABNORMAL) Comprehensive metabolic panel (03/18/2024 6:30 AM EST) Sodium 140 133 - 145 mmol/L LAB CHEMISTRY METHOD 03/18/2024 12:01 PM [facility] Potassium 5.5 3.5 - 5.5 mmol/L LAB CHEMISTRY METHOD 03/18/2024 12:01 PM [facility] Chloride 107 96 - 110 mmol/L LAB CHEMISTRY METHOD 03/18/2024 12:01 PM [facility] CO2 26 21 - 32 mmol/L LAB CHEMISTRY METHOD 03/18/2024 12:01 PM [facility] Anion Gap 7 3 - 11 LAB CHEMISTRY METHOD 03/18/2024 12:01 PM [facility] Glucose 75 70 - 100 mg/dL LAB CHEMISTRY METHOD 03/18/2024 12:01 PM [facility] BUN 9 5 - 25 mg/dL LAB CHEMISTRY METHOD 03/18/2024 12:01 PM [facility] Creatinine 0.78 0.50 - 1.10 mg/dL LAB CHEMISTRY METHOD 03/18/2024 12:01 PM [facility] eGFR 89 >=60 mL/min/1. 73m2 LAB CHEMISTRY METHOD 03/18/2024 12:01 PM [facility] Comment:Calculation based on the Chronic Kidney Disease Epidemiology Collaboration (CKD-EPI) equation refit without adjustment for race. BUN/Creatinine Ratio 11.5 LAB CHEMISTRY METHOD 03/18/2024 12:01 PM [facility] Calcium 8.6 8.5 - 10.5 mg/dL LAB CHEMISTRY METHOD 03/18/2024 12:01 PM [facility] AST (SGOT) 22 10 - 42 unit/L LAB CHEMISTRY METHOD 03/18/2024 12:01 PM [facility] ALT (SGPT) 14 10 - 60 unit/L LAB CHEMISTRY METHOD 03/18/2024 12:01 PM [facility] Alkaline Phosphatase 136(H) 42 - 121 unit/L LAB CHEMISTRY METHOD 03/18/2024 12:01 PM [facility] Total Protein 5.7(L) 6.0 - 8.0 g/dL LAB CHEMISTRY METHOD 03/18/2024 12:01 PM [facility] Albumin 2.6(L) 3.2 - 5.0 g/dL LAB CHEMISTRY METHOD 03/18/2024 12:01 PM [facility] Total Bilirubin 0.5 0.0 - 1.4 mg/dL LAB CHEMISTRY METHOD 03/18/2024 12:01 PM [facility] Blood Venous blood specimen / Unknown Venipuncture / Unknown 03/18/2024 6:30 AM EST 03/18/2024 10:39 AM EST us Darien Smith MD LAB BLOOD ORDERABLES Final Resul t [facility] [address] [place] [address], [place] [phone] * (ABNORMAL) Complete blood count (03/18/2024 6:30 AM EST) WBC 13.0(H) 4.8 - 10.8 K/mcL LAB HEMETOLOGY METHOD 03/18/2024 11:21 AM [facility] RBC 3.70(L) 3.80 - 4.80 M/mcL LAB HEMETOLOGY METHOD 03/18/2024 11:21 AM [facility] Hemoglobin 10.3(L) 11.5 - 16.0 g/dL LAB HEMETOLOGY METHOD 03/18/2024 11:21 AM [facility] Hematocrit 33.4(L) 35.0 - 47.0 % LAB HEMETOLOGY METHOD 03/18/2024 11:21 AM [facility] MCV 90.8 79.0 - 98.0 FL LAB HEMETOLOGY METHOD 03/18/2024 11:21 AM [facility] MCH 28.0 27.0 - 32.0 pcg LAB HEMETOLOGY METHOD 03/18/2024 11:21 AM [facility] MCHC 30.8(L) 32.0 - 37.0 g/dL LAB HEMETOLOGY METHOD 03/18/2024 11:21 AM [facility] RDW 15.1(H) 11.0 - 15.0 % LAB HEMETOLOGY METHOD 03/18/2024 11:21 AM [facility] Platelets 608(H) 130 - 400 K/mcL LAB HEMETOLOGY METHOD 03/18/2024 11:21 AM [facility] MPV 11.2(H) 7.0 - 11.0 FL LAB HEMETOLOGY METHOD 03/18/2024 11:21 AM [facility] NRBC 0.0 <1.0 % LAB HEMETOLOGY METHOD 03/18/2024 11:21 AM [facility] NRBC Absolute 0.00 <0.10 K/mcL LAB HEMETOLOGY METHOD 03/18/2024 11:21 AM [facility] Blood Venous blood specimen / Unknown Venipuncture / Unknown 03/18/2024 6:30 AM EST 03/18/2024 10:39 AM EST us Darien Smith MD LAB BLOOD ORDERABLES Final Resul t [facility] [address] [place] [address], documented in this encounter Visit Diagnoses Diagnosis Anemia, unspecified documented in this encounter Care Teams Prism Inspector Relationship Specialty Start Date End Date Huong Johnson MD [address] [place] [address] PCP - General Internal Medicine 03/03/24 documented as of this encounter
--- OUTSIDE RECORDS SUMMARY | 2024-11-28 13:16 | XMS_ITS | Encounter Summary ---
Author Organization [facility] Address [address] [place] [address] Care Team Providers Care Assistant Business Manager Name Role Phone Huong Johnson MD Primary Care Provider [phone] Encounter Details Date Type Department Care Team (Late st Contact Info) Description 03/22/2024 Lab Requisition [facility] - Main Lab [address] [facility] [place] [address] Darien Smith MD [address] [place] [address] [address] [place], [phone] Anemia, unspecified Social History Tobacco Use [...] for your loved ones. For example, exceptional children teacher assistant or elderly care for an older [...] Info) Description 12/16/2024 1:00 PM EDT Appointment [facility] CT Scan [address] [place] [address] 12/26/2024 9:00 AM EDT Office Visit Thoracic Surgery - [place] [address] [facility] [address] [place] [phone] Simone Harris MD [address] [place] [phone] documented as of this encounter Procedures Procedure Name Priority Date/Time Associated Diagnosis Comments COMPLETE BLOOD COUNT Routine 03/23/2024 4:56 AM EST Anemia, unspecified BASIC METABOLIC PANEL Routine 03/23/2024 4:56 AM EST Anemia, unspecified documented in this encounter Results * Basic metabolic panel (03/23/2024 4:56 AM EST) Sodium 141 133 - 145 mmol/L LAB CHEMISTRY METHOD 03/23/2024 10:11 AM [facility] Potassium 4.7 3.5 - 5.5 mmol/L LAB CHEMISTRY METHOD 03/23/2024 10:11 AM [facility] Chloride 109 96 - 110 mmol/L LAB CHEMISTRY METHOD 03/23/2024 10:11 AM [facility] CO2 28 21 - 32 mmol/L LAB CHEMISTRY METHOD 03/23/2024 10:11 AM [facility] Anion Gap 4 3 - 11 LAB CHEMISTRY METHOD 03/23/2024 10:11 AM [facility] Glucose 86 70 - 100 mg/dL LAB CHEMISTRY METHOD 03/23/2024 10:11 AM [facility] BUN 6 5 - 25 mg/dL LAB CHEMISTRY METHOD 03/23/2024 10:11 AM [facility] Creatinine 0.66 0.50 - 1.10 mg/dL LAB CHEMISTRY METHOD 03/23/2024 10:11 AM [facility] eGFR 103 >=60 mL/min/1. 73m2 LAB CHEMISTRY METHOD 03/23/2024 10:11 AM [facility] Comment:Calculation based on the Chronic Kidney Disease Epidemiology Collaboration (CKD-EPI) equation refit without adjustment for race. BUN/Creatinine Ratio 9.1 LAB CHEMISTRY METHOD 03/23/2024 10:11 AM [facility] Calcium 8.7 8.5 - 10.5 mg/dL LAB CHEMISTRY METHOD 03/23/2024 10:11 AM [facility] Blood Venous blood specimen / Unknown Venipuncture / Unknown 03/23/2024 4:56 AM EST 03/23/2024 8:44 AM EST us Darien Smith MD LAB BLOOD ORDERABLES Final Resul t [facility] [address] [place] [address], * (ABNORMAL) Complete blood count (03/23/2024 4:56 AM EST) WBC 8.2 4.8 - 10.8 K/mcL LAB HEMETOLOGY METHOD 03/23/2024 9:56 AM [facility] RBC 3.50(L) 3.80 - 4.80 M/mcL LAB HEMETOLOGY METHOD 03/23/2024 9:56 AM [facility] Hemoglobin 10.0(L) 11.5 - 16.0 g/dL LAB HEMETOLOGY METHOD 03/23/2024 9:56 AM [facility] Hematocrit 32.2(L) 35.0 - 47.0 % LAB HEMETOLOGY METHOD 03/23/2024 9:56 AM [facility] MCV 91.0 79.0 - 98.0 FL LAB HEMETOLOGY METHOD 03/23/2024 9:56 AM [facility] MCH 28.2 27.0 - 32.0 pcg LAB HEMETOLOGY METHOD 03/23/2024 9:56 AM [facility] MCHC 31.1(L) 32.0 - 37.0 g/dL LAB HEMETOLOGY METHOD 03/23/2024 9:56 AM [facility] RDW 15.5(H) 11.0 - 15.0 % LAB HEMETOLOGY METHOD 03/23/2024 9:56 AM EST [facility] Platelets 480(H) 130 - 400 K/mcL LAB HEMETOLOGY METHOD 03/23/2024 9:56 AM EST [facility] MPV 11.4(H) 7.0 - 11.0 FL LAB HEMETOLOGY METHOD 03/23/2024 9:56 AM EST [facility] NRBC 0.0 <1.0 % LAB HEMETOLOGY METHOD 03/23/2024 9:56 AM [facility] NRBC Absolute 0.00 <0.10 K/mcL LAB HEMETOLOGY METHOD 03/23/2024 9:56 AM [facility] Blood Venous blood specimen / Unknown Venipuncture / Unknown 03/23/2024 4:56 AM EST 03/23/2024 8:44 AM EST us Darien Smith MD LAB BLOOD ORDERABLES Final Resul t [facility] [address] [place] [address], documented in this encounter Visit Diagnoses Diagnosis Anemia, unspecified documented in this encounter Care Teams Assistant Business Manager Relationship Specialty Start Date End Date Huong Johnson MD [address] [place] [address] PCP - General Internal Medicine 03/03/24 documented as of this encounter
--- OUTSIDE RECORDS SUMMARY | 2024-11-28 13:16 | XMS_ITS | Clinical Summary ---
Author Organization [facility] Address [address] [facility] [address] [place] [address] Phone Care Team Providers Care Insurance Commissioner Name Role Phone Huong Johnson MD Primary Care Provider [phone]- [phone] Self-Referred, Patient Unavailable Unavailab Narinder Hutchinson MD, PhD Unavailable + [phone] Sebastien Reveles MD Unavailable + [phone] Terrance Ordonez MD Unavailable [phone] Nicki Desir NP Unavailable [phone] [facility] Unavailable [phone] Aditya Santos RN Unavailable [phone] Allergies Active Allergy Reactions Criticality Noted Date Comments Diatrizoate Swathi-Diatrizoat Sod Erythema,Hives,Itching,Ra sh High 03/03/2024 Hydrocodone-Acetaminophen Hives,Itching High 024 Oxycodone Hives,Itching,Rash High 03/03/2024 Oxycodone-Acetaminophen Itching High 03/03/2024 Sulfa (Sulfonamide Antibiotics) Hives,Itching 03/15/2024 Medications albuterol 90 mcg/actuation inhaler Inhale 1 puff into the lungs every 4 (four) hours as needed. Active aspirin 81 mg Cap Take 81 mg by mouth daily. Active atorvastatin (LIPITOR) 40 MG tablet Take 40 mg by mouth daily. Active bisacodyl (DULCOLAX) [address] 10 mg rectally daily. 5 Active cholecalciferol 25 MCG (1,000 unit) tablet Take 1,000 Units by mouth daily. Active fluticasone-umec lidin-vilanter (TRELEGY ELLIPTA) 100-62.5-25 mcg inhalation powder Inhale 1 puff into the lungs daily. 4 Active EMGALITY PEN 120 mg/mL subcutaneous injection Inject 120 mg under the skin every 30 (thirty) days. Active LEVOXYL 125 mcg tablet Take 125 mcg by mouth every morning. Active lidocaine (LIDODERM) 5 % Place 1 patch onto the skin daily. Active LORazepam (ATIVAN) 0.5 MG tablet Take 0.5 mg by mouth every 6 (six) hours as needed for anxiety. Active meclizine (ANTIVERT) 12.5 mg tablet Take 12.5 mg by mouth 3 (three) times a day as needed. Active morphine (MSIR) 15 MG tablet Take 15 mg by mouth every 6 (six) hours as needed. Breaks in half for left chest pain after thoracotomy 5 Active pantoprazole (PROTONIX) 40 MG tablet Take 40 mg by mouth daily. 5 Active pregabalin (LYRICA) 100 MG capsule Take 100 mg by mouth daily. Active sertraline (ZOLOFT) 25 MG tablet Take 100 mg by mouth daily. 200mg daily 5 Active ursodioL (ACTIGALL) 500 MG tablet Take 500 mg by mouth 2 (two) times a day. Active ondansetron (ZOFRAN) 8 MG tabletIndication s:Nausea Take 1 tablet (8 mg total) by mouth every 8 (eight) hours as needed for nausea. 30 tablet 1 5 Active prochlorperazine (COMPAZINE) 10 MG tabletIndication s:Nausea Take 1 tablet (10 mg total) by mouth every 6 (six) hours as needed (nausea). 30 tablet 1 5 Active dexAMETHasone (DECADRON) 2 MG tablet Take 2 tablets (4 mg total) by mouth 2 (two) times a day with meals. 30 tablet 5 Active lidocaine-priloc man (EMLA) creamIndications :Malignant neoplasm of nipple of right breast in female, unspecified estrogen receptor status Apply topically once for 1 dose. 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, estrogen receptor negative (Primary Dx); Nausea and vomiting, unspecified vomiting type; Aortic valve stenosis, etiology of cardiac valve disease unspecified; Chronic pain syndrome 11/25/2024 Orders Only Acute Care Clinic, [facility] [address] [facility], [address] [place] [address] Laxmi Avalos PA-C 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, estrogen receptor negative (Primary Dx); Nausea 11/25/2024 Telephone [facility], [facility], [facility] [address] [facility], 9th [place] [address] Jeanne Walker, FAZAL Care Coordination 11/23/2024 Orders Only [facility], [facility], [facility] [place] [facility] [place] [address] [facility] [address]th [place] [address] Namrata Ahuja, DOUG Malignant neoplasm of nipple of right breast in female, unspecified estrogen receptor status (Primary Dx) 11/21/2024 9:30 AM EDT Infusion Infusion Therapy Services [facility], [facility] [place] [facility] [place] [address] [address] Narinder Qureshi MD, PhD Suzette Azevedo, FAZAL 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, estrogen receptor negative (Primary Dx); Hypophosphatemia 11/21/2024 8:30 AM EDT Office Visit [facility], [facility], [facility] [place] [address] [address] Namrata Ahuja, Narinder Kearney MD, PhD Malignant neoplasm of nipple of right breast in female, unspecified estrogen receptor status (Primary Dx); Hypophosphatemia 11/17/2024 1:07 PM EDT - 11/17/2024 8:08 PM EDT Hospital Encounter [facility] L2 PRU [address] [place] [address] Narinder Qureshi MD, PhD Lorena Smith, David Uribe Arrived Discharge Disposition: Home or Self Care 11/17/2024 12:55 PM EDT - 11/17/2024 1:05 PM EDT Hospital Encounter [facility] Phlebotomy Admitting [address] [place] [address] Narinder Qureshi MD, PhD Discharge Disposition: Home or Self Care 11/16/2024 2:06 PM EDT - 11/16/2024 11:59 PM EDT Hospital Encounter [facility] [address] [place] [address] 2nd [place] [address] Narinder Qureshi MD, PhD Discharge Disposition: Home or Self Care 11/15/2024 Telephone [facility], [facility], [facility] [place] [address] [place] [address], 9th [place] [address] Thuy Felipe, FAZAL Care Coordination 11/09/2024 11:40 AM EDT - 11/09/2024 11:59 PM EDT Hospital Encounter [facility] [address] [place] [address] 2[address] [place] [address] Sebastien Reveles MD Discharge Disposition: Home or Self Care 11/09/2024 Orders Only [facility], [facility], [facility] [address] [facility] [address] [place] [address] Narinder Qureshi MD, PhD Malignant neoplasm of female breast, unspecified estrogen receptor status, unspecified laterality, unspecified site of breast (Primary Dx) 11/09/2024 Orders Only [facility], [facility], [address] [facility], [address] [place] [address] [place], [place] Malignant neoplasm of breast (female) (Primary Dx) 11/08/2024 Orders Only [facility], [facility], [facility] [address] [facility], [address] [place] [address] Narinder Qureshi MD, PhD Malignant neoplasm of left female breast, unspecified estrogen receptor status, unspecified site of breast (Primary Dx) 11/08/2024 Orders Only [facility], [facility], [facility] [place] [address] [facility] [address] [place] [address] Scarlet Maza NP 11/02/2024 3:30 PM EDT Infusion Infusion Therapy Services [address] [facility], [address] [place] [address] Narinder Qureshi MD, PhD Courtney Little RN 11/02/2024 3:00 PM EDT Nurse Only [place] [facility], [facility], [facility] [address] [facility], [address] [place] [address] Namrata Ahuja, GRID MOLDER Narinder Qureshi MD, PhD Nausea (Primary Dx) 11/02/2024 1:00 PM EDT Office Visit [facility], [facility], [facility] [address] [facility], [address] [place] [address] Narinder Qureshi MD, PhD Malignant neoplasm of left female breast, unspecified estrogen receptor status, unspecified site of breast (Primary Dx) 11/02/2024 11:30 AM EDT Office Visit [facility], [facility], [address], [address] [place] [address] Sebastien Reveles MD 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, estrogen receptor negative (Primary Dx) 11/02/2024 Procedure Pass [facility] L2 PRU [address] [place] [address] 11/02/2024 Orders Only [facility], [facility], [address], [address] [address] Lynette Pedro PA-C Malignant neoplasm of left female breast, unspecified estrogen receptor status, unspecified site of breast (Primary Dx) 11/02/2024 Orders Only [facility], [facility], [address], [address] [place] [address] Lynette Pedro PA-C Malignant neoplasm of right female breast, unspecified estrogen receptor status, unspecified site of breast (Primary Dx) 10/31/2024 10:40 AM EDT Ancillary Procedure DF IMG OUTSIDE IMG [address] [place] [address] Sebastien Reveles MD 10/31/2024 Orders Only [facility], [facility], [facility] [place] [address] [facility], 9th [place] [address] Niecy Peck PA-C Malignant neoplasm of right female breast, unspecified estrogen receptor status, unspecified site of breast (Primary Dx) 10/27/2024 Ancillary Orders DF IMG OUTSIDE IMG [address] [place] [address] Sebastien Reveles MD 10/27/2024 Ancillary Orders DF IMG OUTSIDE IMG [address] [place] [address] Sebastien Reveles MD 10/27/2024 Ancillary Orders DF IMG OUTSIDE IMG [address] [place] [address] Sebastien Reveles MD 10/27/2024 Ancillary Orders DF IMG OUTSIDE IMG [address] [place] [address] Sebastien Reveles MD 10/27/2024 Ancillary Orders DF IMG OUTSIDE IMG [address] [place] [address] Sebastien Reveles MD 10/27/2024 Ancillary Orders [facility] IMG OUTSIDE IMG [address] [place] [address] Sebastien Reveles MD 10/27/2024 Ancillary Orders DF IMG OUTSIDE IMG [address] [place] [address] Sebastien Reveles MD 10/27/2024 Ancillary Orders DF IMG OUTSIDE IMG [address] [place] [address] Sebastien Reveles MD 10/27/2024 Ancillary Orders DF IMG OUTSIDE IMG [address] [place] [address] Sebastien Reveles MD 10/27/2024 Ancillary Orders DF IMG OUTSIDE IMG [address] [place] [address] Sebastien Reveles MD 10/27/2024 Ancillary Orders DF IMG OUTSIDE IMG [address] [place] [address] Sebastien Reveles MD 10/27/2024 Ancillary Orders DF IMG OUTSIDE IMG [address] [place] [address] Sebastien Reveles MD 10/25/2024 1:59 PM EDT - 10/25/2024 11:59 PM EDT Hospital Encounter [facility], [address] [address] Discharge Disposition: Home or Self Care 10/19/2024 Ancillary Procedure DF IMG OUTSIDE IMG [address] [place] [address] Sebastien Reveles MD 10/19/2024 Orders Only [facility], [facility] [facility], [address], [address]th [place] [address] Nicki Hall [place] Malignant neoplasm of right female breast, unspecified estrogen receptor status, unspecified site of breast (Primary Dx) 10/12/2024 12:15 AM EDT Ancillary Procedure DF IMG OUTSIDE IMG [address] [place] [address] Sebastien Reveles MD 10/12/2024 12:10 AM EDT Ancillary Procedure DF IMG OUTSIDE IMG [address] [place] [address] Sebsatien Reveles MD 10/12/2024 12:05 AM EDT Ancillary Procedure DF IMG OUTSIDE IMG [address] [place] [address] Sebastien Reveles MD 10/12/2024 Ancillary Procedure DF IMG OUTSIDE IMG [address] [place] [address] Sebastien Reveles MD 10/11/2024 Ancillary Procedure DF IMG OUTSIDE IMG [address] [place] [address] Sebastien Reveles MD from Last 3 Months Family History Medical History Relation Comments Breast cancer Half-Sister Ovarian cancer Maternal Grandmother at 64 Colon cancer Mother Prostate cancer Mother Breast cancer Paternal Grandmother post menopa usal Relation Status Comments Half-Sister Alive Maternal Grandmother Mother Paternal Grandmother Social History Tobacco Use Types Packs/Day Years [...] high school, GED, job training, learning the Finnish language, technical skills, or developing parenting skills)? [...] your housing situation today? I have stephanie chan 10/26/2024 How many times have you move [...] Orientation Straight 10/18/2024 10 :29 AM EDT Last Filed Vital Signs Vital Sign Reading Time Taken Comments Blood Pressure 170/72 11/25/2024 1:36 PM EDT Pulse 79 11/25/2024 1:36 PM EDT Temperature 36.9 C (98.4 F) 11/25/2024 1:36 PM EDT Respiratory Rate 20 11/25/2024 1:36 PM EDT Oxygen Saturation 98% 11/25/2024 1:36 PM EDT Inhaled Oxygen Concentration 81.9% 11/17/2024 5 :55 PM EDT Weight 106.8 kg (235 lb 7.2 oz) 11/21/2024 8:14 AM EDT Height 158 cm (5' 2.21 ) 11/21/2024 8:14 AM EDT Body Mass Index 42.78 11/21/2024 8:14 AM EDT Plan of Treatment Upcoming Encounters Date Type Department Care Team (Late st Contact Info) Description 11/30/2024 2:10 PM EDT Blood Draw Laboratory Services, [facility] [address], [address]nd [place] [address] Narinder Qureshi MD, PhD [address] [place] [address] [email or web address] 11/30/2024 3:00 PM EDT Office Visit [facility], [facility] [address], [address] [place] [address] Namrata Ahuja, DOUG [address] [place] [phone] [email or web address] 11/30/2024 3:30 PM EDT Infusion Infusion Therapy Services [address], [address] [place] [address] Narinder Qureshi MD, PhD [address] [place] [address] [email or web address] Aditya Santso RN [address] [place] [address] [email or web address] 12/07/2024 3:30 PM EDT Infusion Infusion [facility] Services [address], [address] [place] [address] Narinder Qureshi MD, PhD [address] [place] [phone] [email or web address] Jerrod Hazel, FAZAL [address] [place] [address] [email or web address] 12/14/2024 8:50 AM EDT Blood Draw Laboratory Services, [address], [address] [place], [place] Narinder Qureshi MD, PhD [address] [place] [phone] [email or web address] 12/14/2024 9:30 AM EDT Office Visit [facility], [facility], [address], [address] [place] [address] Namrata Ahuja, GRID MOLDER [address] [place] [phone] [email or web address] 12/14/2024 10:30 AM EDT Infusion [facility] [address], [address] [place] [address] Narinder Qureshi MD, PhD [address] [place] [address] [email or web address] Courtney Little RN [address] [place] [address] [email or web address] 12/21/2024 3:30 PM EDT Infusion [facility] Services [address], [address] [place] [address] Narinder Qureshi MD, PhD [address] [place] [phone] [email or web address] Shanita Black, FAZAL [address] [place] [address] [email or web address] 01/11/2025 8:30 AM EST Blood Draw Laboratory Services, [address], [address] [place], [place] Narinder Qureshi MD, PhD [address] [place] [phone] [email or web address] 01/11/2025 9:00 AM EST Office Visit [facility], [facility], [address], [address] [place] [address] Narinder Qureshi MD, PhD [address] [place] [address] [email or web address] 01/25/2025 10:50 AM EST Blood Draw Laboratory Services, [address], [address] [place] [address] Narinder Qureshi MD, PhD [address] [place] [address] [email or web address] 01/25/2025 11:30 AM EST Office Visit [facility], [facility], [address], [address] [place] [phone] Namrata Ahuja, GRID MOLDER [address] [place] [phone] [email or web address] 02/08/2025 10:50 AM EST Blood Draw Laboratory Services, [address], [address] [place] [address] Narinder Qureshi MD, PhD [address] [place] [address] [email or web address] 02/08/2025 11:30 AM EST Office Visit [facility], [facility], [address], [address] [place] [address] Narinder Qureshi MD, PhD [address] [place] [phone] [email or web address] Health Maintenance Due Date Last Done Comments LIPID PANEL 1967 DEPRESSION SCREENING 1979 HEPATITIS C SCREENING 12/29/1985 HIV ONE-TIME SCREENING (18-65 YEARS) 12/29/1985 PAP SMEAR 12/29/1988 COLOGUARD 12/29/2012 COLONOSCOPY 12/29/2012 COLORECTAL CANCER SCREENING 12/29/2012 FIT TEST 12/29/2012 FOBT 12/29/2012 SIGMOIDOSCOPY 12/29/2012 VIRTUAL COLONOSCOPY 12/29/2012 PNEUMOCOCCAL VACCINES (50+ years) (2 of 2 - PCV) 11/03/2017 11/03/2016 ZOSTER VACCINES (2 of 2) 12/05/2019 10/10/2019 INFLUENZA VACCINE (#1) 2024 , 12/09/2021, 12/08/2020, Additional history exists TSH LEVEL 11/21/2025 11/21/2024, 03/09, 03/03/2024 MAMMOGRAM 10/19/2026 10/19/2024, 0808/2024, 10/12/2024, Additional history exists SCREENING FOR DIABETES 11/26/2027 11/25/2024 Adult Td,Tdap Booster 02/16/2033 02/16/2023 COVID-19 VACCINE Completed 12/26/2023, , 09/08/2021, Additional history exists SMOKING STATUS SCREENING (Once After 26 Yrs) Completed 11/02/2024 HEPATITIS A VACCINES Aged Out No long [...] age to complete this topic Medical Devices Implanted Type Area Dairy Manager Device Identifier Shelf Expiration Date Model / Serial / Lot Port Profuse 8fr Infusion Standard Attachable Silicone Filled Suture Hole - [id number] Implanted:Qty: 1 on 11/17/2024 by Tamera Argueta PA-C at [facility] Catheter Right: Chest Wall MEDCOMP 03/08/2029 [id number] / / [id number] Procedures Procedure Name Priority Date/Time Associated Diagnosis Comments LACTIC ACID (LACTATE) STAT 11/25/2024 1:28 PM EDT 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, estrogen receptor negative Nausea MAGNESIUM STAT 11/25/2024 1:28 PM EDT 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, estrogen receptor negative Nausea COMPREHENSIVE METABOLIC PANEL STAT 11/25/2024 1:28 PM EDT 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, estrogen receptor negative Nausea HC BLOOD COUNT COMPLETE AUTO&AUTO DIFRNTL WBC STAT 11/25/2024 1:28 PM EDT 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, estrogen receptor negative Nausea X-LABEL/STUDY Routine 11/21/2024 7:59 AM EDT Malignant neoplasm of female breast, unspecified estrogen receptor status, unspecified laterality, unspecified site of breast CORTISOL Routine 11/21/2024 7:59 AM EDT Malignant neoplasm of left female breast, unspecified estrogen receptor status, unspecified site of breast FERRITIN Routine 11/21/2024 7:59 AM EDT Malignant neoplasm of left female breast, unspecified estrogen receptor status, unspecified site of breast TSH Routine 11/21/2024 7:59 AM EDT Malignant neoplasm of left female breast, unspecified estrogen receptor status, unspecified site of breast FREE T4 Routine 11/21/2024 7:59 AM EDT Malignant neoplasm of left female breast, unspecified estrogen receptor status, unspecified site of breast VITAMIN B12 Routine 11/21/2024 7:59 AM EDT Malignant neoplasm of left female breast, unspecified estrogen receptor status, unspecified site of breast PHOSPHORUS Routine 11/21/2024 7:59 AM EDT Malignant neoplasm of left female breast, unspecified estrogen receptor status, unspecified site of breast MAGNESIUM Routine 11/21/2024 7:59 AM EDT Malignant neoplasm of left female breast, unspecified estrogen receptor status, unspecified site of breast COMPREHENSIVE METABOLIC PANEL Routine 11/21/2024 7:59 AM EDT Malignant neoplasm of left female breast, unspecified estrogen receptor status, unspecified site of breast HC BLOOD COUNT COMPLETE AUTO&AUTO DIFRNTL WBC Routine 11/21/2024 7:59 AM EDT Malignant neoplasm of left female breast, unspecified estrogen receptor status, unspecified site of breast IR PORT Routine 11/17/2024 6:10 PM EDT Malignant neoplasm of left female breast, unspecified estrogen receptor status, unspecified site of breast BASIC METABOLIC PANEL STAT 11/17/2024 1:01 PM EDT CBC AND DIFFERENTIAL STAT 11/17/2024 1:01 PM EDT BI SENIOR LIVING BIOPSY OF BREAST (LEFT) Routine 11/16/2024 4:54 PM EDT Malignant neoplasm of breast (female) US AXILLA FOR BREAST IMAGING (LEFT) Routine 11/09/2024 1:39 PM EDT Malignant neoplasm of right female breast, unspecified estrogen receptor status, unspecified site of breast RC BREAST IMAGING CONSULTATION (DFCI) Routine 10/31/2024 10:39 AM EDT Malignant neoplasm of right female breast, unspecified estrogen receptor status, unspecified site of breast OUTSIDE PROCEDURE 10/28/2024 OUTSIDE PROCEDURE 10/28/2024 OUTSIDE IMAGING 10/19/2024 BI MRI BREAST OUTSIDE (NO INTERPRETATION) Routine 10/19/2024 12:00 AM EDT BI MAMMOGRAM OUTSIDE (NO INTERPRETATION) Routine 10/12/2024 12:15 AM EDT BI US BREAST OUTSIDE (NO INTERPRETATION) Routine 10/12/2024 12:10 AM EDT BI US BREAST OUTSIDE (NO INTERPRETATION) Routine 10/12/2024 12:05 AM EDT OUTSIDE PATHOLOGY REVIEW Routine 10/12/2024 12:00 AM EDT OUTSIDE PATHOLOGY 10/12/2024 BI MAMMOGRAM OUTSIDE (NO INTERPRETATION) Routine 10/12/2024 12:00 AM EDT OUTSIDE IMAGING 10/12/2024 OUTSIDE IMAGING 10/12/2024 OUTSIDE IMAGING 10/12/2024 OUTSIDE PROCEDURE 10/12/2024 OUTSIDE PROCEDURE 10/12/2024 BI MAMMOGRAM OUTSIDE (NO INTERPRETATION) Routine 10/11/2024 12:00 AM EDT OUTSIDE IMAGING 10/11/2024 OUTSIDE PROCEDURE 09/07/2024 OUTSIDE PROCEDURE 09/07/2024 OUTSIDE PROCEDURE 09/07/2024 from Last 3 Months Results * (ABNORMAL) Comprehensive metabolic panel (11/25/2024 1:28 PM EDT) Only the most recent of2 resultswithin the time period is included. SODIUM 138 136 - 145 mmol/L [facility] POTASSIUM 4.1 3.4 - 5.1 mmol/L [facility] CHLORIDE 103 98 - 107 mmol/L [facility] CO2 21(L) 22 - 31 mmol/L [facility] BUN 16 6 - 23 mg/dL [facility] CREATININE 0.71 0.50 - 1.20 mg/dL [facility] GLUCOSE 102(H) 70 - 100 mg/dL [facility] ALBUMIN 4.0 3.5 - 5.2 g/dL [facility] TOTAL PROTEIN 7.0 6.4 - 8.3 g/dL [facility] CALCIUM 9.3 8.8 - 10.7 mg/dL [facility] ALKALINE PHOSPHATASE 171(H) 35 - 104 U/L [facility] TOTAL BILIRUBIN 1.3(H) 0.2 - 1.2 mg/dL [facility] AST 30 <33 U/L [facility] ALT 14 <34 U/L [facility] GLOBULIN 3.0 2.3 - 4.2 g/dL [facility] EGFR 100 >59 mL/min/1.7 3m2 [facility] Comment:Estimated glomerular filtration rate calculated using the CKD-EPI refit equation. ANION GAP 14 7 - 17 mmol/L [facility] Blood 11/25/2024 1:28 PM EDT 11/25/2024 1:32 PM EDT us Laxmi Avalos PA-C LAB BLOOD ORDERABLES Final Result [facility] [address] [place] [address] * (ABNORMAL) CBC and differential (11/25/2024 1:28 PM EDT) Only the most recent of3 resultswithin the time period is included. WBC 7.75 4.00 - 10.00 K/uL [facility] RBC 4.52 3.90 - 6.00 M/uL [facility] HGB 12.2 11.5 - 16.4 g/dL [facility] HCT 37.4 36.0 - 48.0 % [facility] PLT 241 150 - 450 K/uL [facility] MCV 82.7 80.0 - 100.0 fL [facility] MCH 27.0 27.0 - 32.0 pg [facility] MCHC 32.6 32.0 - 36.0 g/dL [facility] RDW 15.5(H) 11.5 - 14.5 % [facility] MPV 12.1(H) 8.4 - 12.0 fL [facility] NRBC 0.00 0 /100 WBCs [facility] ABSOLUTE NRBC 0.00 0 K/uL [facility] DIFF [employer] [facility] NEUTS 74.3 48.0 - 76.0 % [facility] LYMPHS 20.3 18.0 - 41.0 % [facility] MONOS 2.5(L) 4.0 - 11.0 % [facility] EOS 2.1 0.0 - 5.0 % [facility] BASOS 0.4 0.0 - 1.5 % [facility] % IMMATURE GRANS 0.4 0.0 - 1.0 % [facility] ABSOLUTE NEUTS 5.77 1.92 - 7.60 K/uL [facility] ABSOLUTE LYMPHS 1.57 0.72 - 4.10 K/uL [facility] ABSOLUTE MONOS 0.19 0.16 - 1.10 K/uL [facility] ABSOLUTE EOS 0.16 0.00 - 0.50 K/uL [facility] ABSOLUTE BASOS 0.03 0.00 - 0.15 K/uL [facility] ABS IMMATURE GRANS 0.03 0.00 - 0.10 K/uL [facility] Blood 11/25/2024 1:28 PM EDT 11/25/2024 1:32 PM EDT us Laxmi Avalos PA-C LAB BLOOD ORDERABLES Final Result [facility] [address] [place] [address] * Magnesium (11/25/2024 1:28 PM EDT) Only the most recent of2 resultswithin the time period is included. MAGNESIUM 2.4 1.7 - 2.6 mg/dL [facility] Blood 11/25/2024 1:28 PM EDT 11/25/2024 1:32 PM EDT us Laxmi Avalos PA-C LAB BLOOD ORDERABLES Final Result Performing Organization Address [facility] Co de Phone Number [facility] [address] [place] [address] * Lactate (11/25/2024 1:28 PM EDT) LACTIC ACID (MMOL/L) 0.7 0.2 - 2.0 mmol/L [facility] Blood 11/25/2024 1:28 PM EDT 11/25/2024 1:32 PM EDT us Laxmi PARIS-C LAB BLOOD ORDERABLES Final Result Performing Organization Address [facility] Co de Phone Number [facility] [address] [place] [id number] * X-Label/study (11/21/2024 7:59 AM EDT) EXTRA TUBES NEEDED FOR RESEARCH STUDY [facility] LIC# [id number] Resulting Agency [facility] LIC# [id number] Blood 11/21/2024 7:59 AM EDT 11/21/2024 8:01 AM EDT us Narinder Qureshi MD, PhD LAB BLOOD ORDERABLES F inal Result [facility] LIC# [id number] [place] [address] * TSH (11/21/2024 7:59 AM EDT) TSH 3.53 0.27 - 4.20 uIU/mL [facility] Blood 11/21/2024 7:59 AM EDT 11/21/2024 8:02 AM EDT us Narinder Qureshi MD, PhD LAB BLOOD ORDERABLES F inal Result Performing Organization Address [facility] Co de Phone Number [address] * Free T4 (11/21/2024 7:59 AM EDT) Pathologist [facility] FREE T4 1.4 0.9 - 1.7 ng/dL [facility] Blood 11/21/2024 7:59 AM EDT 11/21/2024 8:02 AM EDT us Narinder Qureshi MD, PhD LAB BLOOD ORDERABLES F inal Result Performing Organization Address [facility] de Phone Number [address] * (ABNORMAL) Phosphorus (11/21/2024 7:59 AM EDT) PHOSPHORUS 2.1(L) 2.5 - 4.5 mg/dL [facility] Blood 11/21/2024 7:59 AM EDT 11/21/2024 8:02 AM EDT us Narinder Qureshi MD, PhD LAB BLOOD ORDERABLES F inal Result Performing Organization Address [facility] de Phone Number [address] * Ferritin (11/21/2024 7:59 AM EDT) FERRITIN 33 13 - 150 ug/L [facility] Blood 11/21/2024 7:59 AM EDT 11/21/2024 8:02 AM EDT us Narinder Qureshi MD, PhD LAB BLOOD ORDERABLES F inal Result Performing Organization Address City/[facility]/ZIP Co de Phone Number [facility] [address] [place] [address], [facility] * Vitamin B12 (11/21/2024 7:59 AM EDT) VITAMIN B12 396 232 - 1,245 pg/mL [facility] Blood 11/21/2024 7:5 9 AM EDT 11/21/2024 8:02 AM EDT us Narinder Qureshi MD, PhD LAB BLOOD ORDERABLES F inal Result Performing Organization Address [facility]/ZIP Co de Phone Number [facility] [address] [place] [address] * Cortisol (11/21/2024 7:59 AM EDT) CORTISOL 11.7 2.5 - 19.5 ug/dL [facility] Comment: CORTISOL REFERENCE RANGE: AM: 4.8-19.5 ug/dL PM: 2.5-11.9 ug/dL Blood 11/21/2024 7:59 AM EDT 11/21/2024 8:02 AM EDT us Narinder Qureshi MD, PhD LAB BLOOD ORDERABLES F inal Result Performing Organization Address City/[facility]/ZIP Co de Phone Number [facility] [address] [place] [address] * IR Port Placement; Chest; Single Lumen; Right; L breast cancer (11/17/2024 6:10 PM EDT) Anatomical Region Laterality Modality Interventional R adiography 11/17/2024 6:06 PM EDT Narrative 11/17/2024 6:11 PM EDT Procedure: Right chest port placement Clinical History and Indication: 58 y.o. female with asthma, remote history of lymphoma treated with extensive radiation resulting in sequela. Now with left breast cancer, SL port requested for chemotherapy initiation. Operators: Advanced Practice Provider: Tamera Argueta PA-C Pre-Procedural Medications: Antibiotics: Cefazolin 2 gm IV. Other: Ativan 1 mg PO Intra-Procedural Medications and Contrast: Midazolam 4 mg IV, Fentanyl 200 mcg IV Sedation: Moderate Procedural (Conscious) Sedation was administered and monitored by radiology department nursing staff and supervised by the licensed independent provider. The following parameters were monitored: oxygen saturation, heart rate, blood pressure and response to care. The licensed independent provider spent 52 minutes of continuous zywm-jf-epfc sedation time with the patient. Patient Radiation Dose: Fluoroscopy Time: 0.6 minutes. Cumulative Dose: 9 mGy. Hewq-Lbcc-Eoagkfx: 280.39 microGy x m^2. To convert from mGy x cm^2 to microGy x m^2, divide by 10 Device(s): [place] [employer] 8 Fr Pro-Fuse CT Single Lumen Port Technique and Findings: Written informed consent was obtained. The patient was prepped and draped in a sterile fashion. A Procedural Time-Out was performed immediately prior to the procedure. Under local anesthesia and real-time ultrasound guidance, the right internal jugular vein was entered with a micropuncture set, and a sonographic image archived for the medical record. The intravascular catheter length was measured and a guidewire was advanced into the inferior vena cava for stability. An appropriate reservoir site was identified in the anterior chest wall. The skin was infiltrated with local anesthesia and an incision was made. Blunt dissection was used to create a reservoir pocket. The pocket was irrigated. Hemostasis obtained within the pocket. The catheter was tunneled from the reservoir site to the venotomy site. The reservoir was attached to the catheter, flushed, and found to be leak-free. The reservoir was then placed in the pocket and sutured in place with resorbable 2-0 vicryl suture. The port catheter was then trimmed to length and inserted through a peel away at the venotomy site. The tip was positioned under fluoroscopic guidance. The device aspirated and flushed well, and was locked with normal saline. The venotomy site was closed with 4-0 monocryl suture. The reservoir pocket was closed in layers with resorbable 2-0 vicryl suture for the deep layers and 4-0 monocryl suture for the skin. The port was not left accessed. A sterile dressing was placed. Chest radiograph at the completion of the procedure showed good catheter position with the tip at the superior cavoatrial junction and no pneumothorax. All procedural wires, catheters, and sheaths were removed and/or accounted for at the completion of the procedure. Specimens Submitted: None. Adverse Events: None. Estimated Blood Loss: Minimal. Summary: 1. Patent right internal jugular vein. 2. Chest port placement via this vein. Plan: 1. The device is ready for immediate use. 2. The device is power-injectable. 3. The device is MRI conditional. 4. The device is not ethanol compatible. Procedure Note Tamera Argueta PA-C - 11/17/2024 Procedure: Right chest port placement Clinical History and Indication: 58 y.o. female with asthma, remotehistory of lymphoma treated with extensive radiation resulting in sequela.Now with left breast cancer, SL port requested for chemotherapyinitiation. Operators: Advanced Practice Provider: Tamera Argueta PA-C Pre-Procedural Medications: Antibiotics: Cefazolin 2 gm IV. Other: Ativan 1 mg PO Intra-Procedural Medications and Contrast: Midazolam 4 mg IV, Fentanyl 200mcg IV Sedation: Moderate Procedural (Conscious) Sedation was administered andmonitored by radiology department nursing staff and supervised [facility] provider. The following parameters were monitored:oxygen saturation, heart rate, blood pressure and response to care. [facility] independent provider spent 52 minutes of continuous qnlc-ls-neyohxhmpiek time with the patient. Patient Radiation Dose: Fluoroscopy Time: 0.6 minutes. Cumulative Dose: 9 mGy. Hrdo-Sjkq-Zptwzgc: 280.39 microGy x m^2. To convert from mGy x cm^2 to microGy x m^2, divide by 10 Device(s): [place] [employer] 8 Fr Pro-Fuse CT Single Lumen Port Technique and Findings: Written informed consent was obtained. The patient was prepped and drapedin a sterile fashion. A Procedural Time-Out was performed immediatelyprior to the procedure. Under local anesthesia and real-time ultrasound guidance, the rightinternal jugular vein was entered with a micropuncture set, and asonographic image archived for the medical record. The intravascularcatheter length was measured and a guidewire was advanced into theinferior vena cava for stability. An appropriate reservoir site wasidentified in the anterior chest wall. The skin was infiltrated withlocal anesthesia and an incision was made. Blunt dissection was used tocreate a reservoir pocket. The pocket was irrigated. Hemostasis obtainedwithin the pocket. The catheter was tunneled from the reservoir site tothe venotomy site. The reservoir was attached to the catheter, flushed,and found to be leak-free. The reservoir was then placed in the pocketand sutured in place with resorbable 2-0 vicryl suture. The port catheterwas then trimmed to length and inserted through a peel away at thevenotomy site. The tip was positioned under fluoroscopic guidance. Thedevice aspirated and flushed well, and was locked with normal saline. Thevenotomy site was closed with 4-0 monocryl suture. The reservoir pocketwas closed in layers with resorbable 2-0 vicryl suture for the deep layersand 4-0 monocryl suture for the skin. The port was not left accessed. Asterile dressing was placed. Chest radiograph at the completion of theprocedure showed good catheter position with the tip at the superiorcavoatrial junction and no pneumothorax. All procedural wires, catheters,and sheaths were removed and/or accounted for at the completion of theprocedure. Specimens Submitted: None. Adverse Events: None. Estimated Blood Loss: Minimal. Summary: 1. Patent right internal jugular vein. 2. Chest port placement via this vein. Plan: 1. The device is ready for immediate use. 2. The device is power-injectable. 3. The device is MRI conditional. 4. The device is not ethanol compatible. us Narinder Qureshi MD, PhD IMG IR VASCULAR Final Result * (ABNORMAL) Basic metabolic panel (11/17/2024 1:01 PM EDT) SODIUM 143 136 - 145 mmol/L [facility] POTASSIUM 4.6 3.4 - 5.1 mmol/L [facility] CHLORIDE 105 98 - 107 mmol/L [facility] CO2 25 22 - 31 mmol/L [facility] BUN 11 6 - 23 mg/dL [facility] CREATININE 0.83 0.50 - 1.20 mg/dL [facility] GLUCOSE 107(H) 70 - 100 mg/dL [facility] CALCIUM 9.5 8.8 - 10.7 mg/dL [facility] EGFR 83 >59 mL/min/1.7 3m2 [facility] Comment:Estimated glomerular filtration rate calculated using the CKD-EPI refit equation. ANION GAP 13 7 - 17 mmol/L [facility] 11/17/2024 1:01 PM EDT 11/17/2024 1:05 PM EDT us Narinder Qureshi MD, PhD LAB BLOOD ORDERABLES F inal Result [facility] [address] [place] [address] * SENIOR LIVING Biopsy of Breast (Left) (11/16/2024 4:54 PM EDT) Anatomical Region Laterality Modality Breast Left, Breast Bilateral Left Ul trasound 11/16/2024 5:00 PM EDT Addenda Addendum by Chelly Ernandez MD on 11/21/2024 9:09 AM EDT ADDENDUM: Addended for administrative purposes and/or data tracking. Impressions 11/16/2024 5:04 PM EDT Ultrasound-guided core needle biopsy of the left breast - please see report content for details. An addendum to this report will be dictated when pathology results are available. The attending physician, Chelly Ernandez, was present for the entire radiologic and block portions of the procedure and was immediately available for the non- critical/block portions. ATTESTATION: IChelly, as teaching physician have reviewed the images, if any, for this patient's exam, and if necessary, have edited the report originally created by Yesenia Pope. Narrative 11/16/2024 5:04 PM EDT BI SENIOR LIVING BIOPSY OF BREAST (LEFT) Additional patient information: 58-year-old female recently diagnosed with high grade left breast cancer presents for research biopsy. COMPARISON: Comparison is made with relevant prior imaging. TECHNIQUE: The procedure was explained to the patient, including discussion of risks and benefits, and written informed consent was obtained. A preprocedural timeout was performed to confirm patient identity with multiple identifiers, as well as the side of the procedure to be performed. Ultrasound imaging was performed to localize the target. The procedure site was prepped using standard aseptic technique. Local anesthesia was administered and documented in the EMR. Under ultrasound guidance, core biopsy was performed of the target lesion. FINDINGS: SITE #1 Location: Left breast 2:00, 12 cm from the nipple Target: 1.0 cm mass Device: 14-gauge core biopsy needle Clip: Clip placement was not indicated. There is no clip. Post procedure mammogram: Not performed. No clip was placed. Specimen: Multiple cores obtained. Sample obtained with patient's consent for research purposes. The patient tolerated the procedure and there were no immediate complications. Procedure Note Chelly Ernandez MD - 11/16/2024 BI SENIOR LIVING BIOPSY OF BREAST (LEFT) Additional patient information: 58-year-old female recently diagnosed withhigh grade left breast cancer presents for research biopsy. COMPARISON: Comparison is made with relevant prior imaging. TECHNIQUE: The procedure was explained to the patient, including discussion of risksand benefits, and written informed consent was obtained. A preproceduraltimeout was performed to confirm patient identity with multipleidentifiers, as well as the side of the procedure to be performed. Ultrasound imaging was performed to localize the target. The proceduresite was prepped using standard aseptic technique. Local anesthesia wasadministered and documented in the EMR. Under ultrasound guidance, corebiopsy was performed of the target lesion. FINDINGS: SITE #1 Location: Left breast 2:00, 12 cm from the nipple Target: 1.0 cm mass Device: 14-gauge core biopsy needle Clip: Clip placement was not indicated. There is no clip. Post procedure mammogram: Not performed. No clip was placed. Specimen: Multiple cores obtained. Sample obtained with patient's consentfor research purposes. The patient tolerated the procedure and there were no immediatecomplications. IMPRESSION: Ultrasound-guided core needle biopsy of the left breast - please seereport content for details. An addendum to this report will be dictated when pathology results areavailable. The attending physician, Chelly Ernandez, was present for the entireradiologic and block portions of the procedure and was immediately availablefor the non- critical/block portions. ATTESTATION: IChelly, as teaching physician have reviewed theimages, if any, for this patient's exam, and if necessary, have edited thereport originally created by Yesenia Pope. us Narinder Qureshi MD, PhD IMG BI IRP GUIDED KIRAN ST PROC Edited Result - Final * US Axilla - Breast Imaging (Left) (11/09/2024 1:39 PM EDT) Anatomical Region Laterality Modality Breast Ultrasound 11/09/2024 2:15 PM EDT Impressions 11/09/2024 2:16 PM EDT Normal-appearing left axillary lymph nodes. BI-RADS 1 NEGATIVE Results and recommendations were communicated to the patient at time of examination. Narrative 11/09/2024 2:16 PM EDT US AXILLA FOR BREAST IMAGING (LEFT) Additional patient information: 58-year-old female recently diagnosed with high grade left breast cancer. Sonographic assessment of the left axilla requested TECHNIQUE: Targeted left axillary ultrasound was performed. COMPARISON: Comparison is made with relevant prior imaging. FINDINGS: Targeted ultrasound of the left axilla was performed.Left axillary lymph nodes are morphologically normal. No sonographic abnormalities are noted. Procedure Note Alexus Cooley MD - 11/09/2024 US AXILLA FOR BREAST IMAGING (LEFT) Additional patient information: 58-year-old female recently diagnosed withhigh grade left breast cancer. Sonographic assessment of the left axillarequested TECHNIQUE: Targeted left axillary ultrasound was performed. COMPARISON: Comparison is made with relevant prior imaging. FINDINGS: Targeted ultrasound of the left axilla was performed.Left axillary lymphnodes are morphologically normal. No sonographic abnormalities arenoted. IMPRESSION: Normal-appearing left axillary lymph nodes. BI-RADS 1 NEGATIVE Results and recommendations were communicated to the patient at time ofexamination. us Sebastien Reveles MD IMG US BREAST Final Result * (ABNORMAL) [facility] Breast Imaging Consultation ([facility]) (10/31/2024 10:39 AM EDT) Anatomical Region Laterality Modality Breast Left, Breast Right, Breast Bilateral Radiographic Imaging Other 11/02/2024 7:47 AM EDT Impressions 11/02/2024 3:26 PM EDT Right Breast: 1. No mammographic or MRI evidence of malignancy in the right breast. Left Breast: 1. 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 Butterfly and barrel-shaped biopsy markers are in appropriate position. Together, masses on ultrasound span 1.6 cm. Total extent of disease is difficult to evaluate on MRI due to surrounding marked enhancing postbiopsy change and therefore ultrasound is most accurate to determine size of malignancy. Surgical and oncologic management is ongoing. 2. Clinical request for left axillary ultrasound. 3. Subtle asymmetric left non-mass enhancement for example regional non-mass enhancement in the left lower outer breast. If breast conservation therapy will be pursued, MR directed biopsy is recommended. Additional imaging recommended: Left axillary ultrasound is clinically requested. Additional biopsy recommended: None. Communication of results: The findings and recommendations were discussed in person at the time of interpretation with a member of the team caring for the patient. OVERALL ASSESSMENT: 6 KNOWN BIOPSY PROVEN MALIGNANCY ATTESTATION: Sarina Moon, as teaching physician have reviewed the images, if any, for this patient's exam, and if necessary, have edited the report originally created by Rell Mercer. Narrative 11/02/2024 3:26 PM EDT Reason for exam (per EHR order): breast cancer Additional clinical information obtained from the EHR: Recently diagnosed left breast cancer. Outside imaging submitted for second opinion radiology consultation. SECOND OPINION CONSULT: Consult interpretation is performed by Dr. Sarina Green on 11/02/2024. The imaging reviewed below has been performed at an outside institution. [facility] are not responsible for image quality, completeness of this examination, or accuracy of patient identity. At the request of the patient's referring physician we have been asked to interpret examination(s) pertinent to facilitating breast care at [facility]. Imaging reviewed: Mammographic images from [facility] dated 10/11/2024, 10/12/2024 Technique: Digital mammography and tomosynthesis were performed; the tomosynthesis images are available and were reviewed. Breast Composition: There are scattered areas of fibroglandular density. Ultrasound(s): Ultrasound images from [facility] dated 10/12/2024. Comparison is made with relevant prior imaging in PACS. Ultrasound is an blanking machine operator-dependent real-time examination. MRI(s): MRI images from [facility] dated 10/19/2024. No prior MRI is available for comparison at the time of dictation. Technique: Due to technical differences and lack of access to complete dynamic 3-D post-processing color images, a complete diagnostic interpretation cannot be rendered. Given these limitations, review of the available outside images reveals the findings noted below. RIGHT BREAST FINDINGS: Mammogram: No significant mass, calcification, or other finding mammographically. MRI: No suspicious enhancement. No lymphadenopathy by MRI. LEFT BREAST FINDINGS: Mammogram: Two adjacent high density irregular versus one bilobed mass in the upper outer breast at posterior depth. These are new from prior. These persist on additional diagnostic views. The remainder of the mammographic pattern is unchanged. Ultrasound: Left 2:00, 12 cm from the nipple, 2 adjacent irregular hypoechoic masses versus one single bilobed mass one. Masses individually measure 0.9 x 0.8 x 0.6 cm and 1.0 x 0.8 x 0.7 cm, versus 1.6 cm when measured contiguously (static image 8 of 12). This correlates to mammogram. Ultrasound-guided biopsy and postbiopsy mammogram: Both masses 2:00, 12 cm from the nipple, were targeted for biopsy. Pre-biopsy measurements were not obtained. Multiple passes were obtained. Butterfly and barrel-shaped biopsy markers were placed and appear in expected position on the postprocedure mammogram (butterfly clip superolateral and barrel inferomedial.) Outside pathology review reports grade 3 invasive carcinoma with ductal and lobular features, triple-negative, at both biopsy sites. On postprocedure mammogram, there is a large postprocedure hematoma. MRI: Upper outer breast posterior depth irregular peripherally enhancing masses with associated of T2 hyperintense [place] brittani biopsy clips superolaterally (4:53), and inferomedially (4:59). A biopsy-proven malignancies. Together masses measure 1.3 x 1.4 x 1.7 cm (1111:49; 19:182). Extending horizontally to the lateral skin, vague enhancement surrounding areas of intrinsic T1 hyperintensity compatible with postbiopsy change in the large hematoma visualized mammographically. Increased T2 hyperintensity throughout the breast. A skin marker overlies lower outer breast at posterior depth. There is vague diffuse mildly asymmetric enhancement throughout the the left breast, for example regional non-mass enhancement in the lower outer breast at posterior depth measuring 3.5 cm (1113:98; 19:182; sagittal reconstructed). Several several areas of apparent skin retraction without abnormal skin thickening or enhancement in the lower outer breast (1113:87, 74), may be sequela of prior left-sided thoracic surgery. Other: MRI: T2 hyperintense enhancement in the left upper lobe may correlate to findings of the left upper lobe lung wedge resection described on pathology report 03/12/2023. Additional lateral left chest wall horizontal enhancement extending into the chest wall musculature (1113:78-88), question sequela of prior left-sided thoracic surgery. Outside prior dedicated CT chest were performed most recently 06/2024, images not available for comparison. Intrinsic T1 hyperintense T2 hyperintense sternal body well-circumscribed focus (2:4; 7:95), suggesting benign etiology such as hemangioma. Procedure Note Sarina Green MD - 11/02/2024 Reason for exam (per EHR order): breast cancer Additional clinical information obtained from the EHR: Recently diagnosed left breast cancer. Outside imaging submitted forsecond opinion radiology consultation. SECOND OPINION CONSULT: Consult interpretation is performed by Dr. Sarina Green on 11/02/2024.The imaging reviewed below has been performed at an outside institution.[facility] are not responsible for image quality, completeness of thisexamination, or accuracy of patient identity. At the request of thepatient's referring physician we have been asked to interpretexamination(s) pertinent to facilitating breast care at [facility]. Imaging reviewed: Mammographic images from [facility] dated 10/11/2024, 10/12/2024 Technique: Digital mammography and tomosynthesis were performed; thetomosynthesis images are available and were reviewed. Breast Composition: There are scattered areas of fibroglandular density. Ultrasound(s): Ultrasound images from [facility] dated10/12/2024. Comparison is made with relevant prior imaging in PACS.Ultrasound is an blanking machine operator-dependent real-time examination. MRI(s): MRI images from [facility] dated 10/19/2024. No priorMRI is available for comparison at the time of dictation. Technique: Due to technical differences and lack of access to completedynamic 3- D post-processing color images, a complete diagnosticinterpretation cannot be rendered. Given these limitations, review of theavailable outside images reveals the findings noted below. RIGHT BREAST FINDINGS: Mammogram: No significant mass, calcification, or other finding mammographically. MRI: No suspicious enhancement. No lymphadenopathy by MRI. LEFT BREAST FINDINGS: Mammogram: Two adjacent high density irregular versus one bilobed mass in the upperouter breast at posterior depth. These are new from prior. These persiston additional diagnostic views. The remainder of the mammographic patternis unchanged. Ultrasound: Left 2:00, 12 cm from the nipple, 2 adjacent irregular hypoechoic massesversus one single bilobed mass one. Masses individually measure 0.9 x 0.8x 0.6 cm and 1.0 x 0.8 x 0.7 cm, versus 1.6 cm when measured contiguously(static image 8 of 12). This correlates to mammogram. Ultrasound-guided biopsy and postbiopsy mammogram: Both masses 2:00, 12 cm from the nipple, were targeted for biopsy.Pre-biopsy measurements were not obtained. Multiple passes were obtained.Butterfly and barrel-shaped biopsy markers were placed and appear inexpected position on the postprocedure mammogram (butterfly clipsuperolateral and barrel inferomedial.) Outside pathology review reports grade 3 invasive carcinoma with ductaland lobular features, triple-negative, at both biopsy sites. Onpostprocedure mammogram, there is a large postprocedure hematoma. MRI: Upper outer breast posterior depth irregular peripherally enhancing masseswith associated of T2 hyperintense [place] brittani biopsy clips superolaterally(4:53), and inferomedially (4:59). A biopsy-proven malignancies. Togethermasses measure 1.3 x 1.4 x 1.7 cm (1111:49; 19:182). Extendinghorizontally to the lateral skin, vague enhancement surrounding areas ofintrinsic T1 hyperintensity compatible with postbiopsy change in the largehematoma visualized mammographically. Increased T2 hyperintensity throughout the breast. A skin marker overlieslower outer breast at posterior depth. There is vague diffuse mildlyasymmetric enhancement throughout the the left breast, for exampleregional non-mass enhancement in the lower outer breast at posterior depthmeasuring 3.5 cm (1113:98; 19:182; sagittal reconstructed). Severalseveral areas of apparent skin retraction without abnormal skin thickeningor enhancement in the lower outer breast (1113:87, 74), may be sequela ofprior left-sided thoracic surgery. Other: MRI: T2 hyperintense enhancement in the left upper lobe may correlate tofindings of the left upper lobe lung wedge resection described onpathology report 03/12/2023. Additional lateral left chest wall horizontalenhancement extending into the chest wall musculature (1113:78-88),question sequela of prior left-sided thoracic surgery. Outside priordedicated CT chest were performed most recently 06/2024, images notavailable for comparison. Intrinsic T1 hyperintense T2 hyperintense sternal body well-circumscribedfocus (2:4; 7:95), suggesting benign etiology such as hemangioma. IMPRESSION: Right Breast: 1. No mammographic or MRI evidence of malignancy in the right breast. Left Breast: 1. 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 Butterfly andbarrel-shaped biopsy markers are in appropriate position. Together, masseson ultrasound span 1.6 cm. Total extent of disease is difficult toevaluate on MRI due to surrounding marked enhancing postbiopsy change andtherefore ultrasound is most accurate to determine size of malignancy.Surgical and oncologic management is ongoing. 2. Clinical request for left axillary ultrasound. 3. Subtle asymmetric left non-mass enhancement for example regionalnon-mass enhancement in the left lower outer breast. If breastconservation therapy will be pursued, MR directed biopsy is recommended. Additional imaging recommended: Left axillary ultrasound is clinicallyrequested. Additional biopsy recommended: None. Communication of results: The findings and recommendations were discussedin person at the time of interpretation with a member of the team caringfor the patient. OVERALL ASSESSMENT: 6 KNOWN BIOPSY PROVEN MALIGNANCY ATTESTATION: Sarina Moon, as teaching physician have reviewed theimages, if any, for this patient's exam, and if necessary, have edited thereport originally created by Rell Mercer. us Sebastien Reveles MD IMG RC CONSULT Final Result * Outside Procedure (10/28/2024) us Scanning Interface Provider PROCEDURE/MINOR SURG ICAL PERFORMABLES Final Result * Outside Procedure (10/28/2024) us Scanning Interface Provider PROCEDURE/MINOR SURG ICAL PERFORMABLES Final Result * Outside Imaging Report Only (10/19/2024) us Scanning Interface Provider IMG XR CHEST Diana l Result * MRI Breast Outside (No Interpretation) (10/19/2024 12:00 AM EDT) Other Narrative [facility] - 10/27/2024 4:13 PM EDT This study is for PACS storage only and not for interpretation. us Sebastien Reveles MD IMG OUTSIDE IMAGING W/ OUT INTERPRETATION Final Result Performing Organization Address [facility] Co de Phone Number [facility] * Mammogram Outside (No Interpretation) (10/12/2024 12:15 AM EDT) Other Narrative [facility] - 10/27/2024 4:14 PM EDT This study is for PACS storage only and not for interpretation. us Sebastien Reveles MD IMG OUTSIDE IMAGING W/ OUT INTERPRETATION Final Result [facility] * US Breast Outside (No Interpretation) (10/12/2024 12:10 AM EDT) Other Narrative [facility] - 10/27/2024 4:14 PM EDT This study is for PACS storage only and not for interpretation. us Sebastien Reveles MD IMG OUTSIDE IMAGING W/ OUT INTERPRETATION Final Result Performing Organization Address [facility] Co de Phone Number [facility] * US Breast Outside (No Interpretation) (10/12/2024 12:05 AM EDT) Other Narrative [facility] - 10/27/2024 4:14 PM EDT This study is for PACS storage only and not for interpretation. us Sebastien Reveles MD IMG OUTSIDE IMAGING W/ OUT INTERPRETATION Final Result Performing Organization Address [facility] Co de Phone Number [facility] * Outside Imaging Report Only (10/12/2024) us Scanning Interface Provider IMG XR CHEST Diana l Result * Outside Imaging Report Only (10/12/2024) us Scanning Interface Provider IMG XR CHEST Diana l Result * Outside Imaging Report Only (10/12/2024) us Scanning Interface Provider IMG XR CHEST Diana l Result * Outside Procedure (10/12/2024) us Scanning Interface Provider PROCEDURE/MINOR SURG ICAL PERFORMABLES Final Result * Outside Procedure (10/12/2024) us Scanning Interface Provider PROCEDURE/MINOR SURG ICAL PERFORMABLES Final Result * Outside Pathology (10/12/2024) us Scanning Interface Provider PATHOLOGY ORDERABLES Final Result * Outside Pathology Review (10/12/2024 12:00 AM EDT) 10/12/2024 10/25/2024 Narrative [facility] - 11/03/2024 3:52 PM EDT CASE: [id number] PATIENT: ROSE MARIE HAYDEN Date: 1965 Sex: Female [facility] Department of Pathology [address] License No.: [id number] Chargemaster Analyst: Dr. Arben Lindsey MD, PhD Physician: SEBASTIEN REVELES MD Resident: Jennifer Cedeño MD Pathologist: Marcial Bledsoe M.D. 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 Tumor-infiltrating lymphocytes (TILs) are <10%. No lymphovascular invasion or in situ carcinoma identified. Special studies were performed at an outside institution with the following results (reviewed): ESTROGEN RECEPTOR NEGATIVE (0%) PROGESTERONE RECEPTOR NEGATIVE (0%) HER2/DINESH NEGATIVE (0; ultralow) GATA3 POSITIVE (variable) No normal breast epithelium is present to serve as an internal control for estrogen and progesterone receptors. 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 Tumor-infiltrating lymphocytes (TILs) are <10%. No lymphovascular invasion or in situ carcinoma are identified. Special studies were performed at an outside institution with the following results (reviewed): ESTROGEN RECEPTOR NEGATIVE (0%) PROGESTERONE RECEPTOR NEGATIVE (0%) HER2/DINESH NEGATIVE (0; ultralow) GATA3 POSITIVE (variable) Normal epithelial cells are appropriately immunoreactive for estrogen and progesterone receptors. Note: The carcinoma in both biopsies is morphologically similar. The staining for GATA3 is supportive of breast origin. Selected slides from this case were reviewed by Dr. Stephanie Bianchi ([facility]), who concurs with the above diagnosis. CLINICAL DATA: History: None Provided TISSUE SUBMITTED: Consult slides. GROSS DESCRIPTION: Received from [facility], [address] [place] [address], [place] [address], are twenty-two (22) slides and one (1) block. One (1) block is labeled [id number] and sublabeled A and twenty two (22) stained slides are labeled [id number] and sublabeled A1 , ER , AR , ERB , SMM , P63 , CHROM , ECAD , GATA3 , KI67 , SYNAP , B1-1 , ER , AR , ERB , KI67 , SYNAP , CHROM , ECAD , GATA3 , SMM , and P63 , which correspond to a materials obtained on 10/12/2024, according to the accompanying pathology report bearing the patient's name and date of . By his/her signature below, the senior physician certifies that he/she personally conducted a microscopic examination ( gross only exam if so stated) of the described specimen(s) and rendered or confirmed the diagnosis(es) related thereto. Final Diagnosis by Marcial Bledsoe M.D., Electronically signed on October at 03:51:53PM Sebastien Reveles MD PATHOLOGY ORDERABLES F inal Result Performing Organization Address [facility] Co de Phone Number [facility] [address] [place] [phone] * Mammogram Outside (No Interpretation) (10/12/2024 12:00 AM EDT) Other Narrative [facility] - 10/27/2024 4:13 PM EDT This study is for PACS storage only and not for interpretation. Sebastien Reveles MD IMG OUTSIDE IMAGING W/ OUT INTERPRETATION Final Result Performing Organization Address [facility] Co de Phone Number [facility] * Outside Imaging Report Only (10/11/2024) Scanning Interface Provider IMG XR CHEST Diana l Result * Mammogram Outside (No Interpretation) (10/11/2024 12:00 AM EDT) Other Narrative [facility] - 10/27/2024 4:14 PM EDT This study is for PACS storage only and not for interpretation. Sebastien Reveles MD IMG OUTSIDE IMAGING W/ OUT INTERPRETATION Final Result [facility] * Outside Procedure (09/07/2024) us Scanning Interface Provider PROCEDURE/MINOR SURG ICAL PERFORMABLES Final Result * Outside Procedure (09/07/2024) us Scanning Interface Provider PROCEDURE/MINOR SURG ICAL PERFORMABLES Final Result * Outside Procedure (09/07/2024) us Scanning Interface Provider PROCEDURE/MINOR SURG ICAL PERFORMABLES Final Result from Last 3 Months Insurance [facility] PPO EPO [facility] PPO EPO [facility] PPO EPO [facility] P[facility] EPO Simple Admit [facility] PPO EPO [facility] PPO EPO Care Teams Insurance Commissioner Relationship Specialty Start Date End Date Huong Johnson MD [address] [place] [address] PCP - General Internal Medicine 10/18/24 Self-Referred, Patient Referring Physician 10/18/24 Narinder Qureshi MD, PhD [address] [place] [id number] [email or web address] Medical Oncology 10/18/24 Sebastien Reveles MD [address] [place] [id number] [email or web address] Surgical Oncology 10/18/24 Terrance Ordonez MD [address] [place] [address] [place] [address] Cardiology 11/02/24 Nicki Desir NP [address] [place] [address] [place] [address] Nurse Practitioner 11/02/24 Alexia Souza, [address] [address] [email or web address] Scale Agent Medical Oncology 11/02/24 Aditya Santos, RN [address] [place] [phone] [email or web address] Primary Infusion Nurse 11/25/24 Additional Source Comments The information contained in this document represents components of the legal health record. It is not the complete legal health record.[facility]
--- OUTSIDE RECORDS SUMMARY | 2024-11-28 13:17 | XMS_ITS | Encounter Summary ---
Author Organization [facility] Address [address] [facility] [address] [place] [phone] Phone Care Team Providers Care Data Base Administrator Name Role Phone Huong Johnson MD Primary Care Provider [phone] Self-Referred, Patient Unavailable Unavailab Narinder Hutchinson MD, PhD Unavailable + [phone] Lou Chilel MD Unavailable [phone] Terrance Ordonez MD Unavailable [phone] Nicki Desir NP Unavailable [phone] Alexia SouzaSW Unavailable [phone] Aditya Santos RN Unavailable [phone] Encounter Details Date Type Department Care Team (Late st Contact Info) Description 11/02/2024 Procedure Pass [facility] L2 PRU [address] [place] [address] Social History Tobacco Use Types Packs/Day Years [...] high school, GED, job training, learning the Slovak language, technical skills, or developing parenting skills)? [...] 2:10 PM EDT Blood Draw Laboratory Services, [facility] [address] [place] [address], 2nd [place] [address] Narinder Qureshi MD, PhD [address] [place] [address] [email or web address] 11/30/2024 3:00 PM EDT Office Visit [facility], [facility], [address] [place] [address] Namrata Ahuja, DOUG [address] [place] [id number] [email or web address] 11/30/2024 3:30 PM EDT Infusion [facility] [place] [address], [address] [place] [address] Narinder Qureshi MD, PhD [address] [place] [phone] [email or web address] Aditya Santos RN [address] [place] [phone] [email or web address] 12/07/2024 3:30 PM EDT Infusion [facility] [address] [place] [address] Narinder Qureshi MD, PhD [address] [place] [phone] [email or web address] Jerrod Hazel, FAZAL [address] [place] [phone] [email or web address] 12/14/2024 8:50 AM EDT [facility], [address], [address] Floor [place], [place] Narinder Qureshi MD, PhD [address] [place] [phone] [email or web address] 12/14/2024 9:30 AM EDT Office Visit [facility], [facility], [address], [address] [place] [address] Namrata Ahuja, DOUG [address] [place] [phone] [email or web address] 12/14/2024 10:30 AM EDT Infusion [facility] [place] [address], [address], [address] [place] [address] Narinder Qureshi MD, PhD [address] [place] [phone] [email or web address] Courtney Little RN [address] [place] [phone] [email or web address] 12/21/2024 3:30 PM EDT Infusion [facility] [address], [address] [place] [address] Narinder Qureshi MD, PhD [address] [place] [phone] [email or web address] Shanita Black, FAZAL [address] [place] [phone] [email or web address] 01/11/2025 8:30 AM EST Blood [facility], [address], [address] [place], [place] Narinder Qureshi MD, PhD [address] [place] [phone] [email or web address] 01/11/2025 9:00 AM EST Office Visit [facility], [facility], [address], [address] [place] [address] Narinder Qureshi MD, PhD [address] [place] [phone] [email or web address] 01/25/2025 10:50 AM EST [facility], [address] [place] [address] Narinder Qureshi MD, PhD [address] [place] [phone] [email or web address] 01/25/2025 11:30 AM EST Office Visit [facility], [facility], [address], [address] [place] [address] Namrata Ahuja, DOUG [address] [place] [phone] [email or web address] 02/08/2025 10:50 AM EST [facility], [address] [place] [address] Narinder Qureshi MD, PhD [address] [place] [phone] [email or web address] 02/08/2025 11:30 AM EST Office Visit [facility], [facility], [address], [address] [place] [address] Narinder Qureshi MD, PhD [address] [place] [phone] [email or web address] documented as of this encounter Visit Diagnoses Not on filedocumented in this encounter Care Teams Data Base Administrator Relationship Specialty Start Date End Date Huong Johnson MD [address] [place] [address] PCP - General Internal Medicine 10/18/24 Self-Referred, Patient Referring Physician 10/18/24 Narinder Qureshi MD, PhD [address] [place] [phone] [email or web address] 10/18/24 Lou Chilel MD [address] [place] [phone] [email or web address] Surgical Oncology 10/18/24 Terrance Ordonez MD [address] [place] [address] [place] [address] Cardiology 11/02/24 Nicki Desir NP [address] [place] [address] [place] [address] Nurse Practitioner 11/02/24 Alexia Souza, [facility] [address] [place] [address] [email or web address] Candy Depositing Machine Operator Medical Oncology 11/02/24 Aditya Santos, FAZAL [address] [place] [phone] [email or web address] Primary Infusion Nurse 11/25/24 documented as of this encounter Additional Source Comments The information contained in this document represents components of the legal health record. It is not the complete legal health record.[facility]
--- OUTSIDE RECORDS SUMMARY | 2024-11-28 13:17 | XMS_ITS ---
Author Organization [facility] Address [address] [place] [address] Phone Care Team Providers Care Steam Finisher Name Role Phone Huong Johnson MD Primary Care Provider [phone]- [phone] Self-Referred, Patient Unavailable Unavailab Narinder Hutchinson MD, PhD Unavailable + [phone] Lou Chilel MD Unavailable + [phone] Terrance Ordonez MD Unavailable [phone] Nicki Desir NP Unavailable [phone] Alexia Souza [facility] Unavailable [phone] Aditya Santos RN Unavailable [phone] Active Problems Problem Noted Date Diagnosed Date Carcinoma of upper-outer satish drant of left breast in female, estrogen receptor negative 11/02/2024 Current Treatment and Therapy Plans ACCESS AND FLUSH??(DFCI)* Plan Start Date:11/21/2024 Linked Problems Carcinoma of upper-outer satish drant of left breast in female, estrogen receptor negative Treatment Medications No medications scheduled. PEMBRO 400 Q6W DAY 1/CARBO 5 Q3W DAY 1,22 /PAC WEEKLY FOR 2 CYCLES FOLLOWED BY PEMBRO 400 Q6W DAYS 1,43/DDAC DAYS 1,15,29,43 (85 DAY CYCLE)* Plan Start Date: 11/21/2024 Plan Provider:Narinder Qureshi MD, PhD Linked Problems Carcinoma of upper-outer satish drant of left breast in female, estrogen receptor negative Treatment Medications Current Day (Day 8 , Cycle 1 - Planned for 11/28/2024) Next Day (Day 15, Cycle 1 - Planned for 12/05/2024) CARBOplatin (PARAPLATIN)CARBOplatin (PARAPLATIN) IVPB (by AUC) 270 mLcycloPHOSphamide (CYTOXAN)DOXOrubicin (ADRIAMYCIN)PACLitaxel (TAXOL)PACLitaxel (TAXOL) IVPB in 250 mL (Doses >85 mg to 199 mg)pembrolizumab (KEYTRUDA)pembrolizumab (KEYTRUDA) IVPB 400 mg Bag PACLitaxeL (TAXOL) 165 mg in sodium chloride 0.9% (PVC Free) 297.5 mL IVPB PACLitaxeL (TAXOL) 165 mg in sodium chloride 0.9% (PVC Free) 297.5 mL IVPB Past Treatment and Therapy Plans No past plan information found.
--- OUTSIDE RECORDS SUMMARY | 2024-11-28 13:17 | XMS_ITS | Encounter Summary ---
Author Organization [facility] Address [address] [facility] [address] [place] [address] Phone Care Team Providers Care Revenue Analyst Name Role Phone Huong Johnson MD Primary Care Provider + [phone] Self-Referred, Patient Unavailable Unavailab Narinder Hutchinson MD, PhD Unavailable + [phone] Lou Chilel MD Unavailable + [phone] Terrance Ordonez MD Unavailable [phone] Nicki Desir NP Unavailable [phone] Alexia SouzaSW Unavailable [phone] Aditya Santos RN Unavailable [phone] Encounter Details Date Type Department Care Team (Late st Contact Info) Description 11/08/2024 Orders Only [facility], [facility], [facility] [place] [facility] [place] [address] [facility] [address] [place] [address] Scarlet Maza NP [address] [place] [place] [address] [email or web address] Social History Tobacco Use Types Packs/Day Years [...] high school, GED, job training, learning the Sami language, technical skills, or developing parenting skills)? [...] 2:10 PM EDT [facility], [address], [address] [place] [address] Narinder Qureshi MD, PhD [address] [place] [phone] [email or web address] 11/30/2024 3:00 PM EDT Office Visit [facility], Stephanie [facility], [address] [place] [address] Namrata Ahuja CNP [address] [place] [phone] [email or web address] 11/30/2024 3:30 PM EDT Infusion [facility] [address] [place] [address] Narinder Qureshi MD, PhD [address] [place] [phone] [email or web address] Aditya Santos RN [address] [place] [phone] [email or web address] 12/07/2024 3:30 PM EDT [facility] [address] [place] [address] Narinder Qureshi MD, PhD [address] [place] [phone] [email or web address] Jerrod Hazel, FAZAL [address] [place] [phone] [email or web address] 12/14/2024 8:50 AM EDT [facility], [address], 2nd Floor [place], [place] Narinder Qureshi MD, PhD [address] [place] [phone] [email or web address] 12/14/2024 9:30 AM EDT Office Visit [facility], Stephanie [facility], [address], [address] [place] [address] Namrata Ahuja, DOUG [address] [place] [id number] [email or web address] 12/14/2024 10:30 AM EDT [facility] [address], [address] [place] [address] Narinder Qureshi MD, PhD [address] [place] [phone] [email or web address] Courtney Little RN [address] [place] [phone] [email or web address] 12/21/2024 3:30 PM EDT [facility] [address], [address] [place] [address] Narinder Qureshi MD, PhD [address] [place] [phone] [email or web address] Shanita Black, FAZAL [address] [place] [phone] [email or web address] 01/11/2025 8:30 AM EST [facility], [address], [address] [place] [phone] Narinder Qureshi MD, PhD [address] [place] [phone] [email or web address] 01/11/2025 9:00 AM EST Office Visit [facility], [facility], [address], [place] [address] Narinder Qureshi MD, PhD [address] [place] [phone] [email or web address] 01/25/2025 10:50 AM EST [facility], [address], [address] [place] [phone] Narinder Qureshi MD, PhD [address] [place] [phone] [email or web address] 01/25/2025 11:30 AM EST Office Visit [facility], Stephanie [facility], [address], [address] [place] [address] Namrata Ahuja, DOUG [address] [place] [phone] [email or web address] 02/08/2025 10:50 AM EST [facility], [address], [address] [place] [address] Narinder Qureshi MD, PhD [address] [place] [phone] [email or web address] 02/08/2025 11:30 AM EST Office Visit [facility], [facility], [facility] [place] [address] [place] [address], 9th [place] [address] Narinder Qureshi MD, PhD [address] [place] [phone] [email or web address] documented as of this encounter Visit Diagnoses Not on filedocumented in this encounter Care Teams Revenue Analyst Relationship Specialty Start Date End Date Huong Johnson MD [address], [place] [address] PCP - General Internal Medicine 10/18/24 Self-Referred, Patient Referring Physician 10/18/24 Narinder Qureshi MD, PhD [address] [place] [phone] [email or web address] Medical Oncology 10/18/24 Lou Chilel MD [address] [place] [phone] [email or web address] Surgical Oncology 10/18/24 Terrance Ordonez MD [address] [place] [address] [place] [address] Cardiology 11/02/24 Nicki Desir NP [address] [place] [address] [place] [address] Nurse Practitioner 11/02/24 Alexia Souza, [facility] [address] [place] [address] [email or web address] Medical Oncology 11/02/24 Aditya Santos, RN [address] [place] [address] [email or web address] Primary Infusion Nurse 11/25/24 documented as of this encounter Additional Source Comments The information contained in this document represents components of the legal health record. It is not the complete legal health record.[facility]
--- OUTSIDE RECORDS SUMMARY | 2024-11-28 13:17 | XMS_ITS | Clinical Summary ---
Author Organization [facility] Address [address] [place] [address] Phone Care Team Providers Care Outcomes Analyst Name Role Phone Huong Johnson MD Primary Care Provider [phone] Allergies Active Allergy Reactions Criticality Noted Date [...] negative for cancer including a left thoracotomy [place]. I had a long discussion with her [...] t middle lobe, unspecified aspiration pneumonia type ([facility] V24, [facility] V28) 03/03/2024 Medical History Medical History Date Comments Hodgkin's lymphoma ([facility] V24, [facility] V28) with radiation GERD (gastroesophageal reflux disease) History of heart artery stent Radiation induced cardiomyopathy ([facility] V24) Depression H/O gastric sleeve Delivery by [...] your loved ones. For example, child care assistant or elderly care for an older [...] 03/03/2024 11 :33 AM EST Obstetrics History * This document contains information received from the source organization and may not represent a complete record from that organization. Para Term AB IAB SAB Ectopic Multiple Livin g Live Births 1 2 2 Date Outcome GA Total Labor Labor/2nd/3rd Weight Sex Type Anes PTL Frannie A1 A5 Name Clin Last Filed Vital Signs Vital Sign Reading Time Taken Comments Blood Pressure 147/72 06/16/2024 2:06 PM EDT Pulse 103 06/16/2024 2:06 PM EDT Temperature 36.2 C (97.2 F) 06/16/2024 2:06 PM EDT Respiratory Rate 17 06/16/2024 2:06 PM EDT Oxygen Saturation 97% 06/16/2024 2:06 PM EDT Inhaled Oxygen Concentration - - Weight 108 kg (237 lb 14.4 oz) 06/16/2024 2:06 P M EDT Height 157.5 cm (5' 2 ) 06/16/2024 2:06 PM EDT Body Mass Index 43.51 06/16/2024 2:06 PM EDT Plan of Treatment Upcoming Encounters Date Type Department Care Team (Late st Contact Info) Description 12/16/2024 1:00 PM EDT Appointment [facility] CT Scan [address] [place] [phone] 12/26/2024 9:00 AM EDT Office Visit Thoracic Surgery - [place] [address] [facility] [address] [place] [address] Simone Harris MD [address] [place] [phone] Health Maintenance Due Date Last Done Comments Breast Cancer Screening 1965 Hepatitis B Vaccines (1 of 3 - 19+ 3-dose series) 12/29/1986 Cervical Cancer Screening: Pap Smear 12/29/1988 Pneumococcal Vaccine: 50+ Years (2 of 2 - PCV) 11/03/2017 11/03/2016 Zoster Vaccines (2 of 2) 12/05/2019 10/10/2019, 0804/2019 Cholesterol Screening (Lipid Panel) 02/29/2024 Colorectal Cancer Screening: Colonoscopy 02/29/2024 HIV Screening 02/29/2024 Hepatitis C Screening 02/29/2024 Depression Screening 03/09/2024 COVID-19 Vaccine (7 - Pfizer risk 2023- season) 2024 12/26/2023, 03/07/2022, 09/08/2021, Additional history exists Influenza Vaccine (#1) 2024 , 12/09/2021, 12/08/2020, Additional history exists Social Influencers of Health Screening 03/03/2025 03/03/2024 Hypertension/CHF/CAD Annual BMP Blood Test 03/30/2025 03/30/2024, 03/23/2024, 03/18/2024, Additional history exists DTaP,Tdap,and Td Vaccines (3 - Td or Tdap) 02/16/2033 02/16/2023, 03/01/2012 RSV Immunization Adult Patients (1 - 1-dose 75+ series) 12/29/2042 MMR Vaccines Aged Out 01/05/2017, 09/30/2016 No lo nger eligible based on patient's age to complete this topic HIB Vaccines Aged Out No longer eligi [...] Recently Relevant to Health Maintenance Results * (ABNORMAL) Basic metabolic panel (03/30/2024 [...] [facility] Comment:Calculation based on the Chronic [...] Final Resul t [facility] [address] [place] [address], from Last 3 Months or Most Recently Relevant to Health Maintenance Insurance [facility] Advance Directives Documents on File Type Date Recorded 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 Do not modify or discontinue any currently active code status orders. Care Teams Outcomes Analyst Relationship Specialty Start Date End Date Huong Johnson MD [address] [place] [address] PCP - General Internal Medicine 03/03/24
== END 2024-11-28 11:01 | disposition home or self-care (01) ==
LOC: HO.HGS 10:47
PROVIDERS: PCP Internal Medicine; Visit Provider Surgery
DX: C50.919 Malignant neoplasm of unspecified site of unspecified female breast (principal); Z17.421 Hormone receptor negative with human epidermal growth factor receptor 2 negative status; C50.912 Malignant neoplasm of unspecified site of left female breast
CPT/HCPCS: 99213